=== PATIENT | male | born 1955 | race Caucasian/White ===

== ENCOUNTER 2018-03-28 06:29 | Day surgery (SDC) | payer MEDICARE, OTHER ==
[2018-03-20 11:41] VITALS: BMI 37.7
[~2018-03-28 06:29] MED LIST: LACTATED RINGERS 1,000 ML IV SCH; LIDOCAINE 1% 20 ML VIAL (10MG/ML) FOR IV START INTRADERMA PRN; SODIUM CHLORIDE 0.9% 1,000 ML IV SCH
[2018-03-28 07:42] LABS: Glucose,Whole Blood 136 mg/dL (75-99)
[2018-03-28 07:44] VITALS: TEMP 97.8
[2018-03-28] MEDS ORDERED: PROPOFOL 10 MG/ML 20 ML VIAL IV ONE (08:00)
[2018-03-28 08:24] LABS: Calcium 9.5 mg/dL (8.4-10.2); Potassium 5.1 mmol/L (3.5-5.1)
[2018-03-28 09:00] VITALS: RESP 16
[2018-03-28 09:28] VITALS: PULSE 62
[2018-03-28 10:21] VITALS: BP 145/79
--- NOTE | 2018-03-29 09:11 | PCN ---
PROCEDURE NOTE DATE OF SERVICE: 03/28/2018. PROCEDURE: Electrical cardioversion. INDICATIONS: Persistent atrial fibrillation, unresponsive to pharmacological efforts. PROCEDURE NOTE: Under the influence of ultra short-acting intravenous anesthetic agent with the attendance of the anesthesiologist, an initial shock of 200 joules was given to the chest wall with anterior and posterior patches. Patient did not convert to sinus rhythm. An additional shock of 250 joules was given and this was also unsuccessful and patient remained in atrial fibrillation with controlled rate. He was hemodynamically stable and neurologically intact. This was an unsuccessful cardioversion. Results were discussed with the patient and his sister. I expect he will be discharged later on today and we will pursue rate control and anticoagulation. The same medical regimen will be continued. MMODL / IJN: [id number] /
== END 2018-03-28 10:02 ==
LOC: CATHCVL 06:29
PROVIDERS: ATTEND Internal Medicine Interventional Cardiology
DX: I48.1 Persistent atrial fibrillation (principal); Z79.01 Long term (current) use of anticoagulants; I25.10 Atherosclerotic heart disease of native coronary artery without angina pectoris; I10 Essential (primary) hypertension; Z87.891 Personal history of nicotine dependence; E78.00 Pure hypercholesterolemia, unspecified; G47.33 Obstructive sleep apnea (adult) (pediatric); E78.5 Hyperlipidemia, unspecified; E13.51 Other specified diabetes mellitus with diabetic peripheral angiopathy without gangrene; Z79.84 Long term (current) use of oral hypoglycemic drugs; Z82.49 Family history of ischemic heart disease and other diseases of the circulatory system; Z79.82 Long term (current) use of aspirin; Z79.899 Other long term (current) drug therapy; Z88.8 Allergy status to other drugs, medicaments and biological substances
CPT/HCPCS: 92960; 80048; J2704

== ENCOUNTER → 2018-06-01 | Day surgery (SDC) | payer MEDICARE, OTHER ==
[2018-05-28 12:13] VITALS: BMI 37.3
[~2018-06-01] MED LIST changes: -LIDOCAINE 1% 20 ML VIAL (10MG/ML) FOR IV START INTRADERMA PRN; +LIDOCAINE 1% INJ 10MG/ML (20 ML MDV) ONE; +PROPOFOL 10 MG/ML 20 ML VIAL IV ONE; +fentaNYL (PF) 50 MCG/ML 2 ML AMP ONE
[2018-06-01 06:24] LABS: Glucose,Whole Blood 128 mg/dL (75-99)
[2018-06-01 06:54] LABS: Calcium 9.7 mg/dL (8.4-10.2); Potassium 5.6 mmol/L (3.5-5.1)
[2018-06-01 07:51] VITALS: RESP 18
--- NOTE | 2018-06-01 08:09 | CE ---
CARDIAC ELECTROPHYSIOLOGY REPORT DATE OF SERVICE: 06/01/2018 PROCEDURE: Electrical cardioversion. INDICATION: Persistent atrial fibrillation. CLINICAL INFORMATION: This is a 63-year-old gentleman with CAD, hypertension, type 2 diabetes, hyperlipidemia, who has developed atrial fibrillation which has been persistent. I performed cardioversion sometime in March of this year which was unsuccessful. I brought him back today on amiodarone to see if it will improve the chance of conversion. Risks, benefits, options and rationale were explained. PROCEDURE NOTE: Under the influence of ultra short-acting intravenous anesthetic agent with the attendance of the anesthesiologist, two shocks were delivered at 250 joules in a synchronized fashion with the anterior and posterior patches. Patient remained in atrial fib and did not convert to sinus rhythm. This was unsuccessful procedure. He remained hemodynamically stable and neurologically intact. Results were discussed with the patient and family. We will pursue rate control and anticoagulation for this patient and consider Tikosyn or pulmonary vein isolation for which he has been reluctant in the past. MMODL / IJN: [id number] /
[2018-06-01 11:37] VITALS: BP 124/66; PULSE 60
== END ==
LOC: CATHCVL 05:39
PROVIDERS: ATTEND Internal Medicine Interventional Cardiology
DX: I48.1 Persistent atrial fibrillation (principal); Z79.01 Long term (current) use of anticoagulants; I10 Essential (primary) hypertension; E78.00 Pure hypercholesterolemia, unspecified; G47.33 Obstructive sleep apnea (adult) (pediatric); I25.10 Atherosclerotic heart disease of native coronary artery without angina pectoris; Z87.891 Personal history of nicotine dependence; E78.5 Hyperlipidemia, unspecified; E13.51 Other specified diabetes mellitus with diabetic peripheral angiopathy without gangrene; Z82.49 Family history of ischemic heart disease and other diseases of the circulatory system; Z79.84 Long term (current) use of oral hypoglycemic drugs; Z79.899 Other long term (current) drug therapy; Z88.8 Allergy status to other drugs, medicaments and biological substances
CPT/HCPCS: 92960; 80048; J2001; J3010; J2704

== ENCOUNTER 2019-11-27 04:00 | Emergency (ER) | payer MEDICARE, OTHER ==
[2019-11-27] MEDS ORDERED: SODIUM CHLORIDE 0.9% 500 ML 500 ML IV STA (04:21)
[2019-11-27] MEDS ORDERED: diphenhydrAMINE 50 MG/ML 1 ML VIAL IVP STA (04:21)
[2019-11-27 04:53] LABS: Basophils # (A) 0.1 k/uL (0-0.2); Basophils % (A) 2 %; Eosinophils # (A) 0.3 k/uL (0-0.7); Eosinophils % (A) 4 %; HCT 45.2 % (39.0-53.0); HGB 15.1 gm/dL (13.0-17.5); Lymphocytes # (A) 1.2 k/uL (1.0-4.8); Lymphocytes % (A) 17 %; MCH 33.1 pg (25.0-35.0); MCHC 33.5 g/dL (31.0-37.0); MCV 98.8 fL (80.0-100.0); Mean Platelet Volume 8.1; Monocytes # (A) 0.4 k/uL (0-1.0); Monocytes % (A) 5 %; Neutrophils # (A) 5.3 k/uL (1.3-7.7); Neutrophils % (A) 72 %; Platelet Count 174 k/uL (150-450); RBC 4.58 m/uL (4.30-5.90); RDW 12.8 % (11.5-15.5); WBC 7.4 k/uL (3.8-10.6)
[2019-11-27 05:08] LABS: Albumin 4.1 g/dL (3.5-5.0); Total Bilirubin 0.9 mg/dL (0.2-1.3); Total Protein 7.6 g/dL (6.3-8.2)
[2019-11-27 05:10] LABS: Potassium 5.6 mmol/L (3.5-5.1)
--- NOTE | 2019-11-27 06:58 | ED ---
General Adult HPI - General Chief complaint: Allergic Reaction Stated complaint: Allergic Reaction Time Seen by Provider: 11/27/19 04:13 Source: patient, EMS Mode of arrival: EMS Limitations: no limitations - History of Present Illness Initial comments: This patient is 64-year-old man who presents because he feels he may be having ALLERGIC reaction to morphine. The patient states that he had been taking 30 mg of morphine every 12 hours for chronic back pain, and then he decided to wean himself off because it started to give him itching, and a feeling like his tongue was swelling. His last dose had been approximately 3 days ago, and then this morning he was starting to feel somewhat control symptoms so he did take one dose of 10 mg of morphine which did help with the withdrawal symptoms but he felt like his tongue may be swelling and he was itching. Patient denies dyspnea. No change in his voice. No difficulty swallowing. -: hour(s) Location: mouth Radiation: non-radiation Quality: other Consistency: constant Improves with: none Worsens with: none Associated Symptoms: denies other symptoms Treatments Prior to Arrival: none - Related Data Home Medications Medication Instructions Recorded Confirmed Apixaban [Eliquis] 5 mg PO BID 03/20/18 06/01/18 Cholecalciferol (Vitamin D3) 2,000 unit PO DAILY 03/20/18 06/01/18 [Vitamin D3] Cyanocobalamin (Vitamin B-12) 1,000 mcg PO DAILY 03/20/18 06/01/18 [Vitamin B-12] Cyclobenzaprine [Flexeril] 10 mg PO HS PRN 03/20/18 06/01/18 Glimepiride [Amaryl] 1 mg PO AC-BRKFST 03/20/18 06/01/18 HYDROcodone/APAP 10-325MG [[place] 1 tab PO Q6HR PRN 03/20/18 06/01/18 10-325] Isosorbide Mononitrate ER [Imdur] 30 mg PO DAILY 03/20/18 06/01/18 Krill Oil 1,000 mg PO DAILY 03/20/18 05/28/18 Nitroglycerin Sl Tabs [Nitrostat] 0.4 mg SUBLINGUAL Q5M PRN 03/20/18 06/01/18 Rosuvastatin [Crestor] 10 mg PO HS 03/20/18 06/01/18 amLODIPine [Norvasc] 5 mg PO DAILY 03/20/18 06/01/18 metFORMIN HCL [Glucophage] 500 mg PO HS 03/20/18 06/01/18 Amiodarone [Cordarone] 200 mg PO BID 05/15/18 06/01/18 Metoprolol Tartrate [Lopressor] 50 mg PO TID 05/28/18 06/01/18 Previous Rx's Medication Instructions Recorded LORazepam [Ativan] 0.5 mg PO TID 3 Days #9 tab 11/27/19 cloNIDine HCL [Catapres] 0.2 mg PO TID #15 tablet 11/27/19 Allergies Allergy/AdvReac Type Severity Reaction Status Date / Time morphine Allergy Swelling Verified 11/27/19 04:11 Review of Systems ROS Statement: Those systems with pertinent positive or pertinent negative responses have been documented in the HPI. ROS Other: All systems not noted in ROS Statement are negative. Constitutional: Denies: fever, chills, weakness ENT: Reports: as per HPI, other (Tongue) Respiratory: Denies: cough, dyspnea, wheezes, stridor Cardiovascular: Denies: chest pain, palpitations Gastrointestinal: Denies: abdominal pain, nausea, vomiting, diarrhea Skin: Reports: pruritus Past Medical History Past Medical History: Atrial Fibrillation, Chest Pain / Angina, Diabetes Mellitus, Hyperlipidemia, Hypertension, Musculoskeletal Disorder, Osteoarthritis (OA) Additional Past Medical History / Comment(s): BACK PAIN R/T OLD INJURY. EDEMA FEET/ANKLES. History of Any Multi-Drug Resistant Organisms: None Reported Past Surgical History: Back Surgery, Heart Catheterization, Heart Catheterization With Stent, Orthopedic Surgery Additional Past Surgical History / Comment(s): R Knee scope; Colonoscopy; Deviated Septum Repair. BACK SURG.X2 PTCA W/ STENTS X2. CARDIOVERSION 03/28/18. Past Anesthesia/Blood Transfusion Reactions: No Reported Reaction Date of Last Stent Placement:: 1997 Past Psychological History: No Psychological Hx Reported Smoking Status: Former smoker Past Alcohol Use History: None Reported Past Drug Use History: None Reported - Past Family History Mother Family Medical History: No Reported History General Exam Limitations: no limitations General appearance: alert, in no apparent distress Head exam: Present: atraumatic, normocephalic Eye exam: Present: normal appearance. Absent: scleral icterus, conjunctival injection ENT exam: Present: normal oropharynx, mucous membranes dry, other (There is no angioedema) Neck exam: Present: normal inspection, full ROM Respiratory exam: Present: normal lung sounds bilaterally. Absent: respiratory distress, wheezes, rales, rhonchi, stridor Cardiovascular Exam: Present: regular rate, normal rhythm, normal heart sounds. Absent: systolic murmur, diastolic murmur, rubs, gallop GI/Abdominal exam: Present: soft. Absent: tenderness, guarding, rebound Neurological exam: Present: alert Skin exam: Present: warm, dry, intact, normal color. Absent: rash Course Vital Signs 11/27/19 11/27/19 11/27/19 04:06 05:04 07:12 Temperature 97 F L 96.9 F L Pulse Rate 95 112 H 87 Respiratory 18 19 18 Rate Blood Pressure 131/100 146/75 119/87 O2 Sat by Pulse 99 97 98 Oximetry EKG Findings - EKG Comments: EKG Findings:: The underlying rhythm is atrial flutter with verbal conduction, the rate is 98 bpm. - EKG Results: EKG: interpreted by ERMD, normal axis, normal QRS - Blocks, Ubly, Hypertrophy, ST Abn: Repolarization changes or abnormalities: nonspecific abnormality, ST segment, and/or T wave Medical Decision Making - Medical Decision Making Patient is observed in the emergency department to ensure that there is no development of angioedema. He is stable throughout his course here. He did request medication to see if we could blunt the withdrawal symptoms, and will attempts clonidine and Ativan for a few days and have the patient follow up to ensure that these are relieving his symptoms. Discussed return parameters. - Lab Data Result diagrams: 11/27/19 04:40 11/27/19 04:40 Lab Results 11/27/19 11/27/19 Range/Units 04:40 04:40 WBC 7.4 (3.8-10.6) k/uL RBC 4.58 (4.30-5.90) m/uL Hgb 15.1 (13.0-17.5) gm/dL Hct 45.2 (39.0-53.0) % MCV 98.8 (80.0-100.0) fL MCH 33.1 (25.0-35.0) pg MCHC 33.5 (31.0-37.0) g/dL RDW 12.8 (11.5-15.5) % Plt Count 174 (150-450) k/uL Neutrophils % 72 % Lymphocytes % 17 % Monocytes % 5 % Eosinophils % 4 % Basophils % 2 % Neutrophils # 5.3 (1.3-7.7) k/uL Lymphocytes # 1.2 (1.0-4.8) k/uL Monocytes # 0.4 (0-1.0) k/uL Eosinophils # 0.3 (0-0.7) k/uL Basophils # 0.1 (0-0.2) k/uL Sodium 138 (137-145) mmol/L Potassium 5.6 H (3.5-5.1) mmol/L Chloride 109 H (98-107) mmol/L Carbon Dioxide 19 L (22-30) mmol/L Anion Gap 10 mmol/L BUN 17 (9-20) mg/dL Creatinine 1.15 (0.66-1.25) mg/dL Est GFR (CKD-EPI)AfAm 78 (>60 ml/min/1.73 sqM) Est GFR (CKD-EPI)NonAf 67 (>60 ml/min/1.73 sqM) Glucose 217 H (74-99) mg/dL Calcium 9.0 (8.4-10.2) mg/dL Total Bilirubin 0.9 (0.2-1.3) mg/dL AST 38 (17-59) U/L ALT 20 (4-49) U/L Alkaline Phosphatase 109 (38-126) U/L Total Protein 7.6 (6.3-8.2) g/dL Albumin 4.1 (3.5-5.0) g/dL Disposition Clinical Impression: Allergic reaction Disposition: HOME SELF-CARE Condition: Good Instructions (If sedation given, give patient instructions): Allergies (ED) Prescriptions: LORazepam [Ativan] 0.5 mg PO TID 3 Days #9 tab cloNIDine HCL [Catapres] 0.2 mg PO TID #15 tablet Is patient prescribed a controlled substance at d/c from ED?: No Referrals: Marco Haque MD [Primary Care Provider] - 1-2 days
[2019-11-27 07:14] VITALS: BP 119/87; PULSE 87; RESP 18; TEMP 96.9
== END 2019-11-27 07:12 | disposition home or self-care (01) ==
LOC: EC 04:00
DX: T40.2X5A Adverse effect of other opioids, initial encounter (principal); I48.91 Unspecified atrial fibrillation; I10 Essential (primary) hypertension; E11.9 Type 2 diabetes mellitus without complications; E78.5 Hyperlipidemia, unspecified; Z79.01 Long term (current) use of anticoagulants; Z79.84 Long term (current) use of oral hypoglycemic drugs; Z79.899 Other long term (current) drug therapy; Z88.5 Allergy status to narcotic agent; Z87.891 Personal history of nicotine dependence; Z95.5 Presence of coronary angioplasty implant and graft
CPT/HCPCS: 36415; 80053; 85025; 93005; 96360; 96361; 99284

== ENCOUNTER 2019-12-13 09:37 | Observation (INO) | payer MEDICARE, OTHER ==
--- NOTE | 2019-12-13 10:01 | ED ---
General Adult HPI - General Chief complaint: Arrhythmia/Palpitations Stated complaint: AFib, SOB Time Seen by Provider: 12/13/19 09:47 Source: patient, RN notes reviewed Mode of arrival: ambulatory Limitations: no limitations - History of Present Illness Initial comments: Patient is a pleasant [age]-year-old male presenting to the emergency Department with complaints of his A. fib acting up. Patient states he has been having some chest discomfort over the past few weeks. Patient last had some yesterday afternoon described as pressure here patient gets associated dyspnea and nausea and diaphoresis. Patient does not generally feel palpitations. Patient states symptoms are mild at this point and only mild dyspnea. No leg pain or leg swelling. Patient does have known history of atrial fibrillation and is on anticoagulation for this. - Related Data Home Medications Medication Instructions Recorded Confirmed Apixaban [Eliquis] 5 mg PO BID 03/20/18 06/01/18 Cholecalciferol (Vitamin D3) 2,000 unit PO DAILY 03/20/18 06/01/18 [Vitamin D3] Cyanocobalamin (Vitamin B-12) 1,000 mcg PO DAILY 03/20/18 06/01/18 [Vitamin B-12] Cyclobenzaprine [Flexeril] 10 mg PO HS PRN 03/20/18 06/01/18 Glimepiride [Amaryl] 1 mg PO AC-BRKFST 03/20/18 06/01/18 HYDROcodone/APAP 10-325MG [[place] 1 tab PO Q6HR PRN 03/20/18 06/01/18 10-325] Isosorbide Mononitrate ER [Imdur] 30 mg PO DAILY 03/20/18 06/01/18 Krill Oil 1,000 mg PO DAILY 03/20/18 05/28/18 Nitroglycerin Sl Tabs [Nitrostat] 0.4 mg SUBLINGUAL Q5M PRN 03/20/18 06/01/18 Rosuvastatin [Crestor] 10 mg PO HS 03/20/18 06/01/18 amLODIPine [Norvasc] 5 mg PO DAILY 03/20/18 06/01/18 metFORMIN HCL [Glucophage] 500 mg PO HS 03/20/18 06/01/18 Amiodarone [Cordarone] 200 mg PO BID 05/15/18 06/01/18 Metoprolol Tartrate [Lopressor] 50 mg PO TID 05/28/18 06/01/18 Previous Rx's Medication Instructions Recorded LORazepam [Ativan] 0.5 mg PO TID 3 Days #9 tab 11/27/19 cloNIDine HCL [Catapres] 0.2 mg PO TID #15 tablet 11/27/19 Allergies Allergy/AdvReac Type Severity Reaction Status Date / Time morphine Allergy Swelling Verified 12/13/19 09:42 Review of Systems ROS Statement: Those systems with pertinent positive or pertinent negative responses have been documented in the HPI. ROS Other: All systems not noted in ROS Statement are negative. Constitutional: Denies: fever Eyes: Denies: eye pain ENT: Denies: ear pain Respiratory: Reports: dyspnea Cardiovascular: Reports: chest pain Endocrine: Reports: fatigue Gastrointestinal: Reports: nausea. Denies: abdominal pain Genitourinary: Denies: dysuria Musculoskeletal: Denies: back pain Skin: Denies: rash Neurological: Denies: weakness Past Medical History Past Medical History: Atrial Fibrillation, Chest Pain / Angina, Diabetes Natalia litus, Hyperlipidemia, Hypertension, Musculoskeletal Disorder, Osteoarthritis (OA) Additional Past Medical History / Comment(s): BACK PAIN R/T OLD INJURY. EDEMA FEET/ANKLES. History of Any Multi-Drug Resistant Organisms: None Reported Past Surgical History: Back Surgery, Heart Catheterization, Heart Catheterization With Stent, Orthopedic Surgery Additional Past Surgical History / Comment(s): R Knee scope; Colonoscopy; Deviated Septum Repair. BACK SURG.X2 PTCA W/ STENTS X2. CARDIOVERSION 03/28/18. Past Anesthesia/Blood Transfusion Reactions: No Reported Reaction Date of Last Stent Placement:: 1997 Past Psychological History: No Psychological Hx Reported Smoking Status: Former smoker Past Alcohol Use History: None Reported Past Drug Use History: None Reported - Past Family History Mother Family Medical History: No Reported History General Exam Limitations: no limitations General appearance: alert, in no apparent distress Head exam: Present: normocephalic Eye exam: Present: normal appearance, PERRL ENT exam: Present: normal oropharynx Neck exam: Present: normal inspection Respiratory exam: Present: normal lung sounds bilaterally Cardiovascular Exam: Present: tachycardia, irregular rhythm GI/Abdominal exam: Present: soft. Absent: tenderness Extremities exam: Present: normal inspection. Absent: pedal edema, calf tenderness Neurological exam: Present: alert Psychiatric exam: Present: normal affect, normal mood Skin exam: Present: normal color Course Vital Signs 12/13/19 12/13/19 09:42 10:03 Temperature 97.5 F L Pulse Rate 102 H 118 H Pulse Rate [ 115 H Bilateral] Respiratory 18 20 Rate Blood Pressure 107/78 125/78 O2 Sat by Pulse 99 99 Oximetry EKG Findings - EKG Comments: EKG Findings:: A. fib with RVR, rate 1:15. QRS 100. QT 302. QTC or 17. Normal axis. Normal QRS. Nonspecific T waves. Medical Decision Making - Medical Decision Making Patient reevaluated and updated. Patient is currently on anticoagulation. Case discussed in detail with Dr. Cabrera, covering for Dr. Haque, who will admit. He did see patient in the emergency department. - Lab Data Result diagrams: 12/13/19 10:00 12/13/19 10:00 Lab Results 12/13/19 12/13/19 12/13/19 Range/Units 10:00 10:00 10:00 WBC 8.6 (3.8-10.6) k/uL RBC 4.90 (4.30-5.90) m/uL Hgb 16.0 (13.0-17.5) gm/dL Hct 47.9 (39.0-53.0) % MCV 97.7 (80.0-100.0) fL MCH 32.6 (25.0-35.0) pg MCHC 33.3 (31.0-37.0) g/dL RDW 12.5 (11.5-15.5) % Plt Count 193 (150-450) k/uL Neutrophils % 73 % Lymphocytes % 18 % Monocytes % 4 % Eosinophils % 3 % Basophils % 1 % Neutrophils # 6.3 (1.3-7.7) k/uL Lymphocytes # 1.6 (1.0-4.8) k/uL Monocytes # 0.4 (0-1.0) k/uL Eosinophils # 0.2 (0-0.7) k/uL Basophils # 0.1 (0-0.2) k/uL PT 10.6 (9.0-12.0) sec INR 1.0 (<1.2) APTT 23.9 (22.0-30.0) sec Sodium 141 (137-145) mmol/L Potassium 5.4 H (3.5-5.1) mmol/L Chloride 108 H (98-107) mmol/L Carbon Dioxide 20 L (22-30) mmol/L Anion Gap 13 mmol/L BUN 16 (9-20) mg/dL Creatinine 1.27 H (0.66-1.25) mg/dL Est GFR (CKD-EPI)AfAm 69 (>60 ml/min/1.73 sqM) Est GFR (CKD-EPI)NonAf 59 (>60 ml/min/1.73 sqM) Glucose 185 H (74-99) mg/dL Calcium 9.8 (8.4-10.2) mg/dL Magnesium 1.8 (1.6-2.3) mg/dL Total Bilirubin 1.0 (0.2-1.3) mg/dL AST 23 (17-59) U/L ALT 18 (4-49) U/L Alkaline Phosphatase 97 (38-126) U/L Troponin I (0.000-0.034) ng/mL NT-Pro-B Natriuret Pep pg/mL Total Protein 8.1 (6.3-8.2) g/dL Albumin 4.4 (3.5-5.0) g/dL TSH 1.200 (0.465-4.680) mIU/L 12/13/19 12/13/19 Range/Units 10:00 10:00 WBC (3.8-10.6) k/uL RBC (4.30-5.90) m/uL Hgb (13.0-17.5) gm/dL Hct (39.0-53.0) % MCV (80.0-100.0) fL MCH (25.0-35.0) pg MCHC (31.0-37.0) g/dL RDW (11.5-15.5) % Plt Count (150-450) k/uL Neutrophils % % Lymphocytes % % Monocytes % % Eosinophils % % Basophils % % Neutrophils # (1.3-7.7) k/uL Lymphocytes # (1.0-4.8) k/uL Monocytes # (0-1.0) k/uL Eosinophils # (0-0.7) k/uL Basophils # (0-0.2) k/uL PT (9.0-12.0) sec INR (<1.2) APTT (22.0-30.0) sec Sodium (137-145) mmol/L Potassium (3.5-5.1) mmol/L Chloride (98-107) mmol/L Carbon Dioxide (22-30) mmol/L Anion Gap mmol/L BUN (9-20) mg/dL Creatinine (0.66-1.25) mg/dL Est GFR (CKD-EPI)AfAm (>60 ml/min/1.73 sqM) Est GFR (CKD-EPI)NonAf (>60 ml/min/1.73 sqM) Glucose (74-99) mg/dL Calcium (8.4-10.2) mg/dL Magnesium (1.6-2.3) mg/dL Total Bilirubin (0.2-1.3) mg/dL AST (17-59) U/L ALT (4-49) U/L Alkaline Phosphatase (38-126) U/L Troponin I <0.012 (0.000-0.034) ng/mL NT-Pro-B Natriuret Pep 2650 pg/mL Total Protein (6.3-8.2) g/dL Albumin (3.5-5.0) g/dL TSH (0.465-4.680) mIU/L - Radiology Data Radiology results: image reviewed (Chest x-ray shows no acute process) Critical Care Time Critical Care Time: Yes Total Critical Care Time: 31 Disposition Clinical Impression: Atrial fibrillation with RVR, Chest pain Disposition: ADMITTED IP TO THIS HOSP Is patient prescribed a controlled substance at d/c from ED?: No Referrals: Marco Haque MD [Primary Care Provider] - 1-2 days Decision Time: 11:08
[2019-12-13 10:10] LABS: Basophils # (A) 0.1 k/uL (0-0.2); Basophils % (A) 1 %; Eosinophils # (A) 0.2 k/uL (0-0.7); Eosinophils % (A) 3 %; HCT 47.9 % (39.0-53.0); Lymphocytes # (A) 1.6 k/uL (1.0-4.8); Lymphocytes % (A) 18 %; MCH 32.6 pg (25.0-35.0); MCHC 33.3 g/dL (31.0-37.0); MCV 97.7 fL (80.0-100.0); Mean Platelet Volume 7.8; Monocytes # (A) 0.4 k/uL (0-1.0); Monocytes % (A) 4 %; Neutrophils # (A) 6.3 k/uL (1.3-7.7); Neutrophils % (A) 73 %; Platelet Count 193 k/uL (150-450); RDW 12.5 % (11.5-15.5); WBC 8.6 k/uL (3.8-10.6)
[2019-12-13 10:16] LABS: Partial Thromboplastin Time 23.9 sec (22.0-30.0); Prothrombin Time 10.6 sec (9.0-12.0)
--- NOTE | 2019-12-13 10:17 | XR ---
EXAMINATION TYPE: XR chest 2V DATE OF EXAM: 12/13/2019 COMPARISON: 01/31/2012 INDICATION: Dysrhythmia TECHNIQUE: Frontal and lateral views of the chest are obtained. FINDINGS: The heart size is normal. The pulmonary vasculature is normal. The lungs are clear. IMPRESSION: 1. No acute pulmonary process.
[2019-12-13] MEDS: DILTIAZEM 125 MG in SODIUM CHLORIDE 0.9% 100 ML IV SCH (10:19)
[2019-12-13 10:20] LABS: Albumin 4.4 g/dL (3.5-5.0); Calcium 9.8 mg/dL (8.4-10.2); Magnesium 1.8 mg/dL (1.6-2.3); Potassium 5.4 mmol/L (3.5-5.1); Total Protein 8.1 g/dL (6.3-8.2)
[2019-12-13] MEDS ORDERED: NITROGLYCERIN SL TABS 0.4 MG TAB SUBLINGUAL PRN ×2 (11:09→12:14)
[2019-12-13] MEDS ORDERED: ASPIRIN 81 MG PO STA (11:09)
[2019-12-13] MEDS: NITROGLYCERIN OINT 1 INCH/GM PACKET TOPICAL SCH ×3 (12:01→23:58)
[2019-12-13] MEDS ORDERED: CYCLOBENZAPRINE 10 MG TAB PO PRN (12:14)
--- NOTE | 2019-12-13 12:38 | P.HPIM ---
History of Present Illness H&P Date: 12/13/19 Chief Complaint: Palpitations This is a 64-year-old male patient of Dr. Marco Haque and Dr. FELI Michael with past medical history of chronic atrial fibrillation on eliquis with cardioversion in 2017, coronary artery disease status post PTCA with stents, diabetes mellitus type 2, hypertension, hyperlipidemia, generalized osteoarthritis, chronic back pain from a work injury in 1999. Patient also follows with a pain management physician in [place]. He states that he was switched from [place] to morphine in June and at the end of September developed hives and rash from the morphine which was discontinued. He states he has had troubles since that time. He complains of chills runny nose which is resolved, nausea without vomiting. The umbilical abdominal pain. Patient states that his atrial fibrillation has been bothering him. He has shortness of breath with minimal activity which became severe last evening, lightheadedness. He denies any syncopal episode. He does relate these not been sleeping. He denies having any diarrhea, no blood or tarry stools. Patient came into [facility] emergency center for evaluation. EKG was atrial fibrillation with heart rate of 115 with T-wave inversions. Patient was afebrile, blood pressure 107/78, pulse ox 99% on room air. CBC was unremarkable. Potassium 5.4, chloride 108, CO2 20, BUN 16 creatinine 1.27, blood sugar 185. Liver function tests within normal limits. Troponin negative. ProBNP 2650. TSH 1.2. Chest x-ray showed no acute pulmonary process. Abdominal ultrasound ordered, cardiology consult. Patient was started on current in the emergency center. We will resume his home medications. Review of Systems Constitutional: Reports fatigue, Reports weakness, Denies chills, Denies fever Eyes: denies blurred vision, denies pain Ears, nose, mouth and throat: Denies dental pain, Denies dysphagia, Denies nasal congestion, Denies nasal discharge, Denies vertigo Cardiovascular: Reports dyspnea on exertion, Reports irregular heart beat, Reports lightheadedness, Reports palpitations, Reports shortness of breath, Denies chest pain, Denies edema, Denies leg edema, Denies syncope Respiratory: Denies cough, Denies cough with sputum, Denies dyspnea, Denies excessive sputum, Denies hemoptysis, Denies home oxygen, Denies respiratory infections, Denies wheezing Gastrointestinal: Reports abdominal pain, Reports nausea, Denies diarrhea, Denies vomiting Genitourinary: Denies dysuria, Denies urinary frequency, Denies urinary retention Musculoskeletal: Denies frequent falls, Denies gait dysfunction, Denies muscle weakness, Denies myalgias Integumentary: Denies pruritus, Denies rash, Denies wounds Neurological: Denies change in mentation, Denies change in speech, Denies numbness, Denies weakness Psychiatric: Denies anxiety, Denies depression Endocrine: Denies fatigue, Denies weight change Past Medical History Past Medical History: Atrial Fibrillation, Chest Pain / Angina, Diabetes Mellitus, Hyperlipidemia, Hypertension, Musculoskeletal Disorder, Osteoarthritis (OA) Additional Past Medical History / Comment(s): BACK PAIN R/T OLD INJURY. EDEMA FEET/ANKLES. History of Any Multi-Drug Resistant Organisms: None Reported Past Surgical History: Back Surgery, Heart Catheterization, Heart Catheterization With Stent, Orthopedic Surgery Additional Past Surgical History / Comment(s): R Knee scope; Colonoscopy; Deviated Septum Repair. BACK SURG.X2 PTCA W/ STENTS X2. CARDIOVERSION 03/28/18. Past Anesthesia/Blood Transfusion Reactions: No Reported Reaction Date of Last Stent Placement:: 1997 Past Psychological History: No Psychological Hx Reported Smoking Status: Former smoker Past Alcohol Use History: None Reported Additional Past Alcohol Use History / Comment(s): Patient was a smoker one pack per day for 30 years and quit 30 years ago. He denies any marijuana, street drug or alcohol use. Patient lives alone. Past Drug Use History: None Reported - Past Family History Mother Family Medical History: No Reported History Additional Family Medical History / Comment(s): Mother in her 80s from coronary artery disease. Father Additional Family Medical History / Comment(s): Father from coronary artery disease. Sister(s) Additional Family Medical History / Comment(s): Patient has 3 sisters one past from CVA. One has coronary artery disease with stent in 1 has no major medical problems. Patient is not having any children. Patient does not have any brothers. Medications and Allergies Home Medications Medication Instructions Recorded Confirmed Type Apixaban [Eliquis] 5 mg PO BID 03/20/18 12/13/19 History Cholecalciferol (Vitamin D3) 2,000 unit PO DAILY 03/20/18 12/13/19 History [Vitamin D3] Cyanocobalamin (Vitamin B-12) 1,000 mcg PO DAILY 03/20/18 12/13/19 History [Vitamin B-12] Cyclobenzaprine [Flexeril] 20 mg PO HS PRN 03/20/18 12/13/19 History Glimepiride [Amaryl] 1 mg PO AC-BRKFST 03/20/18 12/13/19 History Isosorbide Mononitrate ER [Imdur] 30 mg PO DAILY 03/20/18 12/13/19 History Krill Oil 1,500 mg PO DAILY 03/20/18 12/13/19 History Nitroglycerin Sl Tabs [Nitrostat] 0.4 mg SUBLINGUAL Q5M PRN 03/20/18 12/13/19 History amLODIPine [Norvasc] 5 mg PO DAILY 03/20/18 12/13/19 History metFORMIN HCL [Glucophage] 500 mg PO DAILY 03/20/18 12/13/19 History Metoprolol Tartrate [Lopressor] 50 mg PO TID 05/28/18 12/13/19 History Allopurinol [Zyloprim] 100 mg PO DAILY 12/13/19 12/13/19 History Pravastatin Sodium [Pravachol] 40 mg PO HS 12/13/19 12/13/19 History Allergies Allergy/AdvReac Type Severity Reaction Status Date / Time morphine Allergy Swelling Verified 12/13/19 09:42 Physical Exam Vitals: Vital Signs Temp Pulse Pulse Resp BP Pulse Ox 12/13/19 10:03 118 H 115 H 20 125/78 99 12/13/19 09:42 97.5 F L 102 H 18 107/78 99 Intake and Output 12/12/19 12/13/19 12/13/19 22:59 06:59 14:59 Other: Weight 128.367 kg Gen: This is a 64-year-old male. Patient is resting in the ER stretcher appears to be comfortable and in no acute distress. HEENT: Head is atraumatic, normocephalic. Pupils equal, round. Sclerae is anicteric. NECK: Supple. No JVD. No lymphadenopathy. No thyromegaly. LUNGS: Clear to auscultation. No wheezes or rhonchi. No intercostal retractions. HEART: Irregularly irregular rate and rhythm. No murmur. ABDOMEN: Soft. Bowel sounds are present. No masses. No tenderness. Pain at periumbilical area EXTREMITIES: No pedal edema. No calf tenderness. NEUROLOGICAL: Patient is awake, alert and oriented x3. Cranial nerves 2 through 12 are grossly intact. Results CBC & Chem 7: 12/13/19 10:00 12/13/19 10:00 Labs: Abnormal Lab Results - Last 24 Hours (Table) 12/13/19 Range/Units 10:00 Potassium 5.4 H (3.5-5.1) mmol/L Chloride 108 H (98-107) mmol/L Carbon Dioxide 20 L (22-30) mmol/L Creatinine 1.27 H (0.66-1.25) mg/dL Glucose 185 H (74-99) mg/dL Thrombosis Risk Factor Assmnt - DVT/VTE Prophylaxis DVT/VTE Prophylaxis: Pharmacologic Prophylaxis ordered Assessment and Plan Plan: 1. A. fib with RVR, chronic atrial fibrillation. Patient resumed on eliquis. Patient started on Cardizem drip at 5 mg in the ER. Resume Lopressor 50 mg 3 times daily. 2. Coronary artery disease with previous stents. Continue pravastatin, Lopressor, Imdur 30 mg daily. 3. Diabetes mellitus type 2. Continue metformin 500 mg daily, glimepiride 1 mg with breakfast, insulin scale before meals and at bedtime. 4. Hypertension. Continue amlodipine 5 mg daily, Lopressor. 5. Hyperlipidemia. Pravastatin. 6. Chronic back pain. Continue Flexeril 20 mg at bedtime as needed. 7. Chronic kidney disease stage III. 8. DVT prophylaxis. Eliquis. 9. GI prophylaxis. Pepcid. Patient will be admitted to the hospital for a minimum of 2 night stay. Discharge plan: home Impression and plan of care have been directed as dictated by the signing physician. Deysi Padgett nurse practitioner acting as scribe for signing physician.
--- NOTE | 2019-12-13 14:34 | US ---
EXAMINATION TYPE: US abdomen complete DATE OF EXAM: 12/13/2019 COMPARISON: NONE CLINICAL HISTORY: periumbilical pain. EXAM MEASUREMENTS: Liver Length: 18.3 cm Gallbladder Wall: 0.3 cm CBD: 0.3 cm Spleen: 13.0 cm Right Kidney: 11.7 x 5.8 x 4.8 cm Left Kidney: 11.5 x 5.8 x 5.8 cm Patient of large body habitus with severe overlying bowel gas. Technically difficult very limited neeru dy. Pancreas: Obscured by bowel gas Liver: Increased attenuation, limited visualization, see above limitations Gallbladder: gallstones, limited visualization, see above limitations Evidence for sonographic Moreno's sign: no CBD: limited visualization, see above limitations Spleen: wnl Right Kidney: lobular contour Left Kidney: possible parapelvic cysts, lobular contour, cortical medullary differentiation maintain ed bilaterally Upper IVC: not well seen Abd Aorta: mostly obscured by bowel gas, portion visualized wnl There is no ascites. IMPRESSION: Suspect underlying hepatic steatosis, borderline hepatosplenomegaly, cholelithiasis. Limi hiram exam.
[2019-12-13] MEDS: APIXABAN 5 MG TAB PO SCH ×2 (14:43→21:31)
[2019-12-13] MEDS: ISOSORBIDE MONONITRATE ER 30 MG TAB.ER.24H PO SCH (14:44)
[2019-12-13] MEDS: metFORMIN 500 MG TAB PO SCH (14:45)
[2019-12-13] MEDS: METOPROLOL TARTRATE 50 MG TAB PO SCH ×2 (14:45→21:35)
[2019-12-13 16:46] LABS: Glucose,Whole Blood 89 mg/dL (75-99)
[2019-12-13] MEDS: INSULIN ASPART (NovoLOG) 100 UNIT/ML VIAL SQ SCH ×3 (16:46→21:31)
[2019-12-13 18:19] VITALS: RESP 18
[2019-12-13] MEDS ORDERED: PRAVASTATIN SODIUM 40 MG TAB PO SCH (21:00)
[2019-12-13 21:26] LABS: Glucose,Whole Blood 137 mg/dL (75-99)
[2019-12-14 04:33] LABS: Cholesterol 173 mg/dL (<200); HDL Cholesterol 33 mg/dL (40-60); LDL Cholesterol,Calculated 103 mg/dL (0-99); Triglycerides 184 mg/dL (<150)
[2019-12-14 06:34] LABS: Glucose,Whole Blood 162 mg/dL (75-99)
[2019-12-14] MEDS ORDERED: GLIMEPIRIDE 1 MG TAB PO SCH (07:30)
[2019-12-14] MEDS ORDERED: amLODIPine 5 MG TAB PO SCH (09:00)
[2019-12-14] MEDS ORDERED: ALLOPURINOL 100 MG TAB PO SCH (09:00)
[2019-12-14] MEDS ORDERED: ASPIRIN 325 MG TAB PO SCH (09:00)
[2019-12-14] MEDS ORDERED: FAMOTIDINE 20 MG TAB PO SCH (09:00)
[2019-12-14] MEDS: ISOSORBIDE MONONITRATE ER 30 MG TAB.ER.24H PO SCH (09:14)
[2019-12-14] MEDS: APIXABAN 5 MG TAB PO SCH (09:14)
[2019-12-14] MEDS: metFORMIN 500 MG TAB PO SCH (09:14)
[2019-12-14] MEDS: METOPROLOL TARTRATE 50 MG TAB PO SCH (09:14)
[2019-12-14] MEDS: INSULIN ASPART (NovoLOG) 100 UNIT/ML VIAL SQ SCH ×2 (09:15→14:06)
[2019-12-14] MEDS: NITROGLYCERIN OINT 1 INCH/GM PACKET TOPICAL SCH (09:15)
[2019-12-14] MEDS: DILTIAZEM 125 MG in SODIUM CHLORIDE 0.9% 100 ML IV SCH (09:16)
--- NOTE | 2019-12-14 09:52 | P.DS ---
Providers Date of admission: 12/13/19 11:09 Expected date of discharge: 12/14/19 Attending physician: Mark Calle Consults: 12/13/19 11:09 Consult Physician Urgent Consulting Provider: Nishi Michael Consult Reason/Comments: A. fib with RVR and chest pain Do you want consulting provider notified?: Yes Primary care physician: Marco Haque [facility] Course: This is a 64-year-old male patient of Dr. Marco Haque and Dr. FELI Michael with past medical history of chronic atrial fibrillation on eliquis with cardioversion in 2017, coronary artery disease status post PTCA with stents, diabetes mellitus type 2, hypertension, hyperlipidemia, generalized osteoarthritis, chronic back pain from a work injury in 1999. Patient also follows with a pain management physician in [place]. He states that he was switched from [place] to morphine in June and at the end of September developed hives and rash from the morphine which was discontinued. He states he has had troubles since that time. He complains of chills runny nose which is resolved, nausea without vomiting. The umbilical abdominal pain. Patient states that his atrial fibrillation has been bothering him. He has shortness of breath with minimal activity which became severe last evening, lightheadedness. He denies any syncopal episode. He does relate these not been sleeping. He denies having any diarrhea, no blood or tarry stools. Patient came into [facility] emergency center for evaluation. EKG was atrial fibrillation with heart rate of 115 with T-wave inversions. Patient was afebrile, blood pressure 107/78, pulse ox 99% on room air. CBC was unremarkable. Potassium 5.4, chloride 108, CO2 20, BUN 16 creatinine 1.27, blood sugar 185. Liver function tests within normal limits. Troponin negative. ProBNP 2650. TSH 1.2. Chest x-ray showed no acute pulmonary process. Abdominal ultrasound ordered, cardiology consult. Patient was started on current in the emergency center. We will resume his home medications. 12/14: Patient is seen today on the cardiac stepdown unit. Heart rate has been running 49-69, blood pressure 150/83, pulse ox 94% on room air. Patient has been cleared by cardiology and Lopressor changed to 75 mg 3 times daily. Patient denies having any chest pain. He states his abdominal pain has resolved. Ultrasound of the abdomen does show gallstones and patient will be referred to Dr. Do follow-up as an outpatient. Patient will be discharged home today in stable condition. Discharge diagnoses: 1. A. fib with RVR, chronic atrial fibrillation. 2. Coronary artery disease with previous stents. 3. Diabetes mellitus type 2. 4. Hypertension. 5. Hyperlipidemia. 6. Chronic back pain. 7. Chronic kidney disease stage III. 8. Abdominal pain most likely secondary to gallbladder stones. Discharge plan: home Impression and plan of care have been directed as dictated by the signing physician. Deysi Padgett nurse practitioner acting as scribe for signing physician. Patient Condition at Discharge: Good Plan - Discharge Summary Discharge Rx Participant: Yes New Discharge Prescriptions: New Metoprolol Tartrate [Lopressor] 75 mg PO TID #135 tab Continue metFORMIN HCL [Glucophage] 500 mg PO DAILY Nitroglycerin Sl Tabs [Nitrostat] 0.4 mg SUBLINGUAL Q5M PRN PRN Reason: Chest Pain Glimepiride [Amaryl] 1 mg PO AC-BRKFST Cyclobenzaprine [Flexeril] 20 mg PO HS PRN PRN Reason: Muscle Spasm amLODIPine [Norvasc] 5 mg PO DAILY Isosorbide Mononitrate ER [Imdur] 30 mg PO DAILY Apixaban [Eliquis] 5 mg PO BID Krill Oil 1,500 mg PO DAILY Cyanocobalamin (Vitamin B-12) [Vitamin B-12] 1,000 mcg PO DAILY Cholecalciferol (Vitamin D3) [Vitamin D3] 2,000 unit PO DAILY Allopurinol [Zyloprim] 100 mg PO DAILY Pravastatin Sodium [Pravachol] 40 mg PO HS Discontinued Metoprolol Tartrate [Lopressor] 50 mg PO TID Discharge Medication List Apixaban [Eliquis] 5 mg PO BID 03/20/18 [History] Cholecalciferol (Vitamin D3) [Vitamin D3] 2,000 unit PO DAILY 03/20/18 [History] Cyanocobalamin (Vitamin B-12) [Vitamin B-12] 1,000 mcg PO DAILY 03/20/18 [History] Cyclobenzaprine [Flexeril] 20 mg PO HS PRN 03/20/18 [History] Glimepiride [Amaryl] 1 mg PO AC-BRKFST 03/20/18 [History] Isosorbide Mononitrate ER [Imdur] 30 mg PO DAILY 03/20/18 [History] Krill Oil 1,500 mg PO DAILY 03/20/18 [History] Nitroglycerin Sl Tabs [Nitrostat] 0.4 mg SUBLINGUAL Q5M PRN 03/20/18 [History] amLODIPine [Norvasc] 5 mg PO DAILY 03/20/18 [History] metFORMIN HCL [Glucophage] 500 mg PO DAILY 03/20/18 [History] Allopurinol [Zyloprim] 100 mg PO DAILY 12/13/19 [History] Pravastatin Sodium [Pravachol] 40 mg PO HS 12/13/19 [History] Metoprolol Tartrate [Lopressor] 75 mg PO TID #135 tab 12/14/19 [Rx] Follow up Appointment(s)/Referral(s): Marco Haque MD [Primary Care Provider] - 1 Week Nsihi Michael MD [STAFF PHYSICIAN] - 1 Week El Do MD [Medical Doctor] - 1 Week (GB stones) Discharge Disposition: HOME SELF-CARE
--- NOTE | 2019-12-14 10:45 | P.CRDCN ---
History of Present Illness Consult date: 12/14/19 Requesting physician: Mark Calle Consult reason: atrial fibrillation Chief complaint: Palpitations and heart racing History of present illness: This is a 64-year-old gentleman who follows with Dr. Pal Michael in the office. He has a known history of hypertension, diabetes, hyperlipidemia, peripheral vascular disease, family history of premature coronary artery disease, nicotine dependence, coronary artery disease with prior RCA stenting in 1996. He also has history of atrial fibrillation for which 2 attempts at cardioversion have been made in the past which were unsuccessful. does have a history of chronic back pain from a work injury in 1999, he was switched from [place] to morphine in June and at the end of September developed a severe reaction from the morphine which was discontinued. Since that time the patient states he just has not felt well overall. He's having some discomfort in the umbilicus region, and has been more exertionally short of breath and feeling his heart racing fast. For these reasons she came to the emergency center for further evaluation and treatment. His EKG on presentation here showed atrial fibrillation with a rapid ventricular response. Chest x-ray did not reveal any acute process. Ultrasound of the abdomen was performed, suspicious for underlying hepatic steatosis, borderline hepatosplenomegaly, cholelithiasis. Limited exam. Blood pressure on arrival here 108/78 with a heart rate of 102, 99% on room air. Temperature 97.5. White blood cell count is normal, hemoglobin 16, platelet count 193. Sodium 141, potassium 4.7, BUN 16, creatinine 1.2. Troponins are negative 3. AST ALT and alk phos obtained are normal. TSH is normal. Past Medical History Past Medical History: Atrial Fibrillation, Chest Pain / Angina, Diabetes Mellitus, Hyperlipidemia, Hypertension, Musculoskeletal Disorder, Osteoarthritis (OA) Additional Past Medical History / Comment(s): BACK PAIN R/T OLD INJURY. EDEMA FEET/ANKLES. History of Any Multi-Drug Resistant Organisms: None Reported Past Surgical History: Back Surgery, Heart Catheterization, Heart Catheterization With Stent, Orthopedic Surgery Additional Past Surgical History / Comment(s): R Knee scope; Colonoscopy; Deviated Septum Repair. BACK SURG.X2 PTCA W/ STENTS X2. CARDIOVERSION 03/28/18. Past Anesthesia/Blood Transfusion Reactions: No Reported Reaction Date of Last Stent Placement:: 1997 Past Psychological History: No Psychological Hx Reported Smoking Status: Former smoker Past Alcohol Use History: None Reported Past Drug Use History: None Reported - Past Family History Mother Family Medical History: No Reported History Additional Family Medical History / Comment(s): Mother in her 80s from coronary artery disease. Father Additional Family Medical History / Comment(s): Father from coronary artery disease. Sister(s) Additional Family Medical History / Comment(s): Patient has 3 sisters one past from CVA. One has coronary artery disease with stent in 1 has no major medical problems. Patient is not having any children. Patient does not have any brothers. Medications and Allergies Home Medications Medication Instructions Recorded Confirmed Type Apixaban [Eliquis] 5 mg PO BID 03/20/18 12/13/19 History Cholecalciferol (Vitamin D3) 2,000 unit PO DAILY 03/20/18 12/13/19 History [Vitamin D3] Cyanocobalamin (Vitamin B-12) 1,000 mcg PO DAILY 03/20/18 12/13/19 History [Vitamin B-12] Cyclobenzaprine [Flexeril] 20 mg PO HS PRN 03/20/18 12/13/19 History Glimepiride [Amaryl] 1 mg PO AC-BRKFST 03/20/18 12/13/19 History Isosorbide Mononitrate ER [Imdur] 30 mg PO DAILY 03/20/18 12/13/19 History Krill Oil 1,500 mg PO DAILY 03/20/18 12/13/19 History Nitroglycerin Sl Tabs [Nitrostat] 0.4 mg SUBLINGUAL Q5M PRN 03/20/18 12/13/19 History amLODIPine [Norvasc] 5 mg PO DAILY 03/20/18 12/13/19 History metFORMIN HCL [Glucophage] 500 mg PO DAILY 03/20/18 12/13/19 History Metoprolol Tartrate [Lopressor] 50 mg PO TID 05/28/18 12/13/19 History Allopurinol [Zyloprim] 100 mg PO DAILY 12/13/19 12/13/19 History Pravastatin Sodium [Pravachol] 40 mg PO HS 12/13/19 12/13/19 History Allergies Allergy/AdvReac Type Severity Reaction Status Date / Time morphine Allergy Swelling Verified 02/21/20 09:42 Physical Exam Vitals: Vital Signs Temp Pulse Pulse Resp BP BP BP 12/14/19 08:00 56 L 18 158/83 12/14/19 04:00 49 L 18 117/70 12/14/19 00:00 98.0 F 69 18 127/80 12/13/19 20:00 97.6 F 67 18 109/66 12/13/19 18:16 97.3 F L 96 18 125/87 12/13/19 16:46 98.3 F 95 20 97/69 12/13/19 14:46 101 H 20 106/86 12/13/19 14:00 98 20 101/67 12/13/19 13:26 92 20 101/67 12/13/19 11:59 97.5 F L 62 20 164/82 12/13/19 11:58 102 H 20 114/99 Pulse Ox 12/14/19 08:00 94 L 12/14/19 04:00 95 12/14/19 00:00 100 12/13/19 20:00 95 12/13/19 18:16 99 12/13/19 16:46 99 12/13/19 14:46 99 12/13/19 14:00 98 12/13/19 13:26 98 12/13/19 11:59 96 12/13/19 11:58 99 Intake and Output 12/13/19 12/14/19 12/14/19 22:59 06:59 14:59 Intake Total 474.75 Balance 474.75 Intake: Intake, IV Titration 114.75 Amount Diltiazem 125 mg In 114.75 Sodium Chloride 0.9% 100 ml @ 5 MG/HR 5 mls/hr IV .Q24H [facility] Rx#:[id number] Oral 360 Other: # Voids 1 2 Weight 121.3 kg Gen: This is a 64-year-old male. In no acute distress at the time of my examination . HEENT: Head is atraumatic, normocephalic. Pupils equal, round. Sclerae is anicteric. NECK: Supple. No JVD. No lymphadenopathy. No thyromegaly. LUNGS: Clear to auscultation. No wheezes or rhonchi. No intercostal retractions. HEART: Irregularly irregular rate and rhythm. No murmur. ABDOMEN: Soft. Bowel sounds are present. No masses. No tenderness. Pain at periumbilical area EXTREMITIES: No pedal edema. No calf tenderness. NEUROLOGICAL: Patient is awake, alert and oriented x3. Cranial nerves 2 through 12 are grossly intact. Results 12/13/19 10:00 12/13/19 18:49 Cardiac Enzymes 12/13/19 12/13/19 12/13/19 Range/Units 10:00 15:40 21:47 Troponin I <0.012 0.012 0.012 (0.000-0.034) ng/mL Lipids 12/13/19 Range/Units 10:00 Triglycerides 184 H (<150) mg/dL Cholesterol 173 (<200) mg/dL HDL Cholesterol 33 L (40-60) mg/dL Comprehensive Metabolic Panel 12/13/19 Range/Units 18:49 Potassium 4.7 (3.5-5.1) mmol/L Current Medications Generic Name Dose Route Start Last Admin Trade Name Freq PRN Reason Stop Dose Admin Allopurinol 100 mg 12/14/19 09:00 12/14/19 09:14 Zyloprim PO 100 mg DAILY ANDREW Administration Amlodipine Besylate 5 mg 12/14/19 09:00 12/14/19 09:14 Norvasc PO 5 mg DAILY ANDREW Administration Apixaban 5 mg 12/13/19 12:15 12/14/19 09:14 Eliquis PO 5 mg BID ANDREW Administration Cyclobenzaprine HCl 20 mg 12/13/19 12:14 Flexeril PO HS PRN Muscle Spasm Famotidine 20 mg 12/14/19 09:00 12/14/19 09:14 Pepcid PO 20 mg DAILY ANDREW Administration Glimepiride 1 mg 12/14/19 07:30 12/14/19 09:18 Amaryl PO 1 mg AC-BRKFST ANDREW Administration Insulin Aspart 0 unit 12/13/19 12:30 12/14/19 09:15 Novolog SQ 2 unit ACHS ANDREW Administration Protocol Isosorbide Mononitrate 30 mg 12/13/19 12:15 12/14/19 09:14 Imdur PO 30 mg DAILY ANDREW Administration Metformin HCl 500 mg 12/13/19 12:15 12/14/19 09:14 Glucophage PO 500 mg AC-BRKFST ANDREW Administration Metoprolol Tartrate 50 mg 12/13/19 13:00 12/14/19 09:14 Lopressor PO 50 mg TID ANDREW Administration Nitroglycerin 0.4 mg 12/13/19 11:09 Nitrostat SUBLINGUAL Q5M PRN Chest Pain Nitroglycerin 1 inch 12/13/19 12:00 12/14/19 09:15 Nitro-Bid Oint TOPICAL Not Given Q6HR ANDREW Pravastatin Sodium 40 mg 12/13/19 21:00 12/13/19 21:35 Pravachol PO 40 mg HS ANDREW Administration Sodium Chloride 10 ml 12/13/19 21:00 12/14/19 09:15 Saline Flush IV 10 ml BID ANDREW Administration Intake and Output 12/13/19 12/14/19 12/14/19 22:59 06:59 14:59 Intake Total 474.75 Balance 474.75 Intake: Intake, IV Titration 114.75 Amount Diltiazem 125 mg In 114.75 Sodium Chloride 0.9% 100 ml @ 5 MG/HR 5 mls/hr IV .Q24H ANDREW Rx#:[id number] Oral 360 Other: # Voids 1 2 Weight 121.3 kg 12/13/19 10:00 12/13/19 18:49 EKG Interpretations (text) EKG shows atrial fibrillation with a rapid ventricular response Assessment and Plan Plan: Assessment and plan 1. A. fib with RVR, chronic atrial fibrillation, persistent. 2. Coronary artery disease with previous stents. 3. Diabetes mellitus type 2. 4. Hypertension. 5. Hyperlipidemia. 6. Chronic back pain. 7. Chronic kidney disease stage III. Plan Patient has been resumed on Eliquis. IV Cardizem has been discontinued. We will discontinue the Nitropaste, increase the dose of beta arslan. Patient may be discharged home today from our perspective, we will make him a follow-up appointment with Dr. Pal Michael in the office next week. DNP note has been reviewed, I agree with a documented findings and plan of care. Patient was seen and examined.
[2019-12-14 12:40] VITALS: BP 120/65; PULSE 67; TEMP 97.2
[2019-12-14 12:43] LABS: Glucose,Whole Blood 149 mg/dL (75-99)
[2019-12-14] MEDS ORDERED: METOPROLOL TARTRATE 50 MG TAB PO SCH (16:00)
== END 2019-12-14 15:08 | disposition home or self-care (01) ==
LOC: EC 09:37 → 3SCARD 11:09
PROVIDERS: ADMIT Internal Medicine; ATTEND Internal Medicine
DX: I48.19 Other persistent atrial fibrillation (principal); I25.10 Atherosclerotic heart disease of native coronary artery without angina pectoris; Z95.5 Presence of coronary angioplasty implant and graft; E11.51 Type 2 diabetes mellitus with diabetic peripheral angiopathy without gangrene; E11.22 Type 2 diabetes mellitus with diabetic chronic kidney disease; I12.9 Hypertensive chronic kidney disease with stage 1 through stage 4 chronic kidney disease, or unspecified chronic kidney disease; E78.5 Hyperlipidemia, unspecified; N18.3 Chronic kidney disease, stage 3 (moderate); G89.29 Other chronic pain; M54.9 Dorsalgia, unspecified; R10.9 Unspecified abdominal pain; I73.9 Peripheral vascular disease, unspecified; M19.90 Unspecified osteoarthritis, unspecified site; Z79.01 Long term (current) use of anticoagulants; Z79.84 Long term (current) use of oral hypoglycemic drugs; Z79.899 Other long term (current) drug therapy; Z88.5 Allergy status to narcotic agent; Z82.49 Family history of ischemic heart disease and other diseases of the circulatory system; Z82.3 Family history of stroke; Z87.891 Personal history of nicotine dependence
CPT/HCPCS: 36415; 93005; 83880; 80061; 80053; 83735; 84132; 84443; 84484; 85025; 85610; 85730; 71046; 76700; G0378 ×2

== ENCOUNTER 2019-12-27 09:38 | Emergency (ER) | payer MEDICARE, OTHER ==
[2019-12-27 09:47] VITALS: TEMP 97.7
[2019-12-27] MEDS ORDERED: HYDROmorphone 0.5 MG/0.5 ML SYRINGE IVP STA (10:18)
[2019-12-27] MEDS ORDERED: SODIUM CHLORIDE 0.9% 500 ML 500 ML IV STA (10:18)
[2019-12-27] MEDS ORDERED: KETOROLAC 30 MG/ML 1 ML VIAL IVP STA (10:18)
[2019-12-27 10:33] LABS: Basophils % (A) 0 %; Eosinophils # (A) 0.1 k/uL (0-0.7); Eosinophils % (A) 1 %; HGB 14.5 gm/dL (13.0-17.5); Lymphocytes # (A) 1.5 k/uL (1.0-4.8); Lymphocytes % (A) 17 %; MCH 33.6 pg (25.0-35.0); MCHC 33.7 g/dL (31.0-37.0); MCV 99.7 fL (80.0-100.0); Mean Platelet Volume 7.9; Monocytes # (A) 0.4 k/uL (0-1.0); Monocytes % (A) 5 %; Neutrophils # (A) 6.9 k/uL (1.3-7.7); Neutrophils % (A) 76 %; Platelet Count 157 k/uL (150-450); RBC 4.31 m/uL (4.30-5.90); RDW 13.1 % (11.5-15.5); WBC 9.2 k/uL (3.8-10.6)
[2019-12-27 10:43] LABS: Appearance,Urine Clear (Clear); Bilirubin,Urine Negative (Negative); Blood,Urine Moderate (Negative); Color,Urine Yellow; Glucose,Urine (UA) Trace (Negative); Ketones,Urine Trace (Negative); Leukocyte Esterase,Urine Negative (Negative); Mucus,Urine Rare /hpf; Nitrite,Urine Negative (Negative); Protein,Urine 1+ (Negative); RBC,Urine 46 /hpf (0-5); Specific Gravity,Urine 1.041 (1.001-1.035); Urobilinogen,Urine <2.0 mg/dL (<2.0); WBC,Urine 3 /hpf (0-5)
--- NOTE | 2019-12-27 10:49 | ED ---
Male Urogenital HPI - General Chief complaint: Urogenital Stated complaint: Abdominal pain Source: patient, EMS Mode of arrival: EMS Limitations: no limitations - History of Present Illness Initial comments: The patient is a 64-year-old male past medical history of A. fib on Eliquis who presents to emergency room with reported right groin pain. He states that he was seen at [facility] on Monday for similar complaint. He was diagnosed with a kidney stone that was "25%" past. They discharged him home and told to take Tylenol. States he's been taking the medications more than what's recommended. He feels as if "he's overdosed" on the medication. It is still no t controlling his pain. States that he was rolling around on the floor yesterday and discomfort. They did not discharge him home with any pain medications and he does not take any chronic pain medications at home. He was given a prescription for Flomax however states he hasn't been taking it. He denies dysuria, hematuria or difficulty voiding. No diarrhea, constipation, melenic stools or hematochezia. Continues to make urine. No fevers or chills. Denies nausea or vomiting. Does admit to some mild right flank pain. No chest or back pain. He does admit to one previous kidney stone in the past. There are no other alleviating, precipitating or modifying factors - Related Data Home Medications Medication Instructions Recorded Confirmed Apixaban [Eliquis] 5 mg PO BID 03/20/18 12/27/19 Cholecalciferol (Vitamin D3) 2,000 unit PO DAILY 03/20/18 12/27/19 [Vitamin D3] Cyanocobalamin (Vitamin B-12) 1,000 mcg PO DAILY 03/20/18 12/27/19 [Vitamin B-12] Cyclobenzaprine [Flexeril] 20 mg PO HS PRN 03/20/18 12/27/19 Glimepiride [Amaryl] 1 mg PO AC-BRKFST 03/20/18 12/27/19 Isosorbide Mononitrate ER [Imdur] 30 mg PO DAILY 03/20/18 12/27/19 Krill Oil 1,500 mg PO DAILY 03/20/18 12/27/19 Nitroglycerin Sl Tabs [Nitrostat] 0.4 mg SUBLINGUAL Q5M PRN 03/20/18 12/27/19 amLODIPine [Norvasc] 5 mg PO DAILY 03/20/18 12/27/19 metFORMIN HCL [Glucophage] 500 mg PO DAILY 03/20/18 12/27/19 Allopurinol [Zyloprim] 100 mg PO DAILY 12/13/19 12/27/19 Pravastatin Sodium [Pravachol] 40 mg PO HS 12/13/19 12/27/19 Tamsulosin [Flomax] 0.4 mg PO DAILY 12/27/19 12/27/19 Previous Rx's Medication Instructions Recorded Metoprolol Tartrate [Lopressor] 75 mg PO TID #135 tab 12/14/19 HYDROcodone/APAP 10-325MG [[place] 1 tab PO Q4HR PRN 3 Days #18 tab 12/27/19 10-325] Allergies Allergy/AdvReac Type Severity Reaction Status Date / Time morphine Allergy Swelling Verified 12/27/19 10:50 Review of Systems ROS Statement: Those systems with pertinent positive or pertinent negative responses have been documented in the HPI. ROS Other: All systems not noted in ROS Statement are negative. Past Medical History Past Medical History: Atrial Fibrillation, Chest Pain / Angina, Diabetes Mellitus, Hyperlipidemia, Hypertension, Musculoskeletal Disorder, Osteoarthritis (OA) Additional Past Medical History / Comment(s): BACK PAIN R/T OLD INJURY. EDEMA FEET/ANKLES. kidney stones History of Any Multi-Drug Resistant Organisms: None Reported Past Surgical History: Back Surgery, Heart Catheterization, Heart Catheterization With Stent, Orthopedic Surgery Additional Past Surgical History / Comment(s): R Knee scope; Colonoscopy; Deviated Septum Repair. BACK SURG.X2 PTCA W/ STENTS X2. CARDIOVERSION 03/28/18. Past Anesthesia/Blood Transfusion Reactions: No Reported Reaction Date of Last Stent Placement:: 1997 Past Psychological History: No Psychological Hx Reported Smoking Status: Former smoker Past Alcohol Use History: None Reported Past Drug Use History: None Reported - Past Family History Mother Family Medical History: No Reported History Additional Family Medical History / Comment(s): Mother in her 80s from coronary artery disease. Father Additional Family Medical History / Comment(s): Father from coronary artery disease. Sister(s) Additional Family Medical History / Comment(s): Patient has 3 sisters one past from CVA. One has coronary artery disease with stent in 1 has no major medical problems. Patient is not having any children. Patient does not have any brothers. General Exam Limitations: no limitations Course Vital Signs 12/27/19 12/27/19 09:41 12:00 Temperature 97.7 F Pulse Rate 85 83 Respiratory 20 Rate Blood Pressure 132/106 123/87 O2 Sat by Pulse 96 98 Oximetry Medical Decision Making - Medical Decision Making Upon arrival the patient was placed into room 8. A thorough history and physical exam was performed. The patient was given 15 mg of Toradol through peripheral IV as well as 1 mg of Dilaudid. I did request repeating laboratory studies and a urine. I did review the patient's records from [facility]. Laboratory studies did demonstrate a creatinine of 1.3. This is near the patient's baseline. Urinalysis shows trace ketones, moderate blood and 46 red blood cells. Tylenol level is normal at 20.4. His last dose of Tylenol was graded 4 hours prior to hospital arrival. KUB performed demonstrates a 5 mm calcination in the right renal pelvis. Records from [facility] demonstrates an 8 mm proximal ureteral stone on the right. Patient is reevaluated has had improvement in his symptoms. He does not have any pain medications at home other than Tylenol. At this time I did discharge the patient home with a prescription for [place]. He is to take the medications as directed. Do not take additional Tylenol. He is to call and make an appointment with the urologist. Return to the emergency room for any new or worsening symptoms. She tripped return parameters were discussed. The patient was in agreement with this plan and was discharged home with - Lab Data Result diagrams: 12/27/19 09:58 12/27/19 09:58 Lab Results 12/27/19 12/27/19 12/27/19 Range/Units 09:58 09:58 10:30 WBC 9.2 (3.8-10.6) k/uL RBC 4.31 (4.30-5.90) m/uL Hgb 14.5 (13.0-17.5) gm/dL Hct 43.0 (39.0-53.0) % MCV 99.7 (80.0-100.0) fL MCH 33.6 (25.0-35.0) pg MCHC 33.7 (31.0-37.0) g/dL RDW 13.1 (11.5-15.5) % Plt Count 157 (150-450) k/uL Neutrophils % 76 % Lymphocytes % 17 % Monocytes % 5 % Eosinophils % 1 % Basophils % 0 % Neutrophils # 6.9 (1.3-7.7) k/uL Lymphocytes # 1.5 (1.0-4.8) k/uL Monocytes # 0.4 (0-1.0) k/uL Eosinophils # 0.1 (0-0.7) k/uL Basophils # 0.0 (0-0.2) k/uL Sodium 137 (137-145) mmol/L Potassium 5.5 H (3.5-5.1) mmol/L Chloride 108 H (98-107) mmol/L Carbon Dioxide 18 L (22-30) mmol/L Anion Gap 11 mmol/L BUN 21 H (9-20) mg/dL Creatinine 1.37 H (0.66-1.25) mg/dL Est GFR (CKD-EPI)AfAm 63 (>60 ml/min/1.73 sqM) Est GFR (CKD-EPI)NonAf 54 (>60 ml/min/1.73 sqM) Glucose 158 H (74-99) mg/dL Calcium 9.6 (8.4-10.2) mg/dL Total Bilirubin 1.0 (0.2-1.3) mg/dL AST 21 (17-59) U/L ALT 14 (4-49) U/L Alkaline Phosphatase 64 (38-126) U/L Total Protein 7.2 (6.3-8.2) g/dL Albumin 3.9 (3.5-5.0) g/dL Urine Color Yellow Urine Appearance Clear (Clear) Urine pH 5.0 (5.0-8.0) Ur Specific [place] 1.041 H (1.001-1.035) Urine Protein 1+ H (Negative) Urine Glucose (UA) Trace H (Negative) Urine Ketones Trace H (Negative) Urine Blood Moderate H (Negative) Urine Nitrite Negative (Negative) Urine Bilirubin Negative (Negative) Urine Urobilinogen <2.0 (<2.0) mg/dL Ur Leukocyte Esterase Negative (Negative) Urine RBC 46 H (0-5) /hpf Urine WBC 3 (0-5) /hpf Urine Mucus Rare H (None) /hpf Acetaminophen 20.4 ug/mL Disposition Clinical Impression: Right ureteral stone Disposition: HOME SELF-CARE Condition: Stable Instructions (If sedation given, give patient instructions): Ureteral Stones (E D) Additional Instructions: Please call and make an appointment with the urologist. Take the [place] medication as directed. Do not take any additional Tylenol. Return to the emergency room for any new or worsening symptoms. Continue to take the Flomax Prescriptions: HYDROcodone/APAP 10-325MG [[place] 10-325] 1 tab PO Q4HR PRN 3 Days #18 tab PRN Reason: Pain Is patient prescribed a controlled substance at d/c from ED?: Yes When asked, does pt state using other controlled substances?: No If prescribed controlled substance>3 days was MAPS reviewed?: Prescribed <3 Days If opioid is for acute pain is fill amount 7 days or less?: Yes If Rx opioid, was Start Talking consent form obtained?: Yes Referrals: Marco Haque MD [Primary Care Provider] - 1-2 days Marco Adair MD [STAFF PHYSICIAN] - 1-2 days Time of Disposition: 11:50
[2019-12-27 10:56] LABS: Acetaminophen 20.4 ug/mL; Albumin 3.9 g/dL (3.5-5.0); Calcium 9.6 mg/dL (8.4-10.2); Potassium 5.5 mmol/L (3.5-5.1); Total Protein 7.2 g/dL (6.3-8.2)
--- NOTE | 2019-12-27 11:17 | XR ---
EXAMINATION TYPE: XR KUB portable DATE OF EXAM: 12/27/2019 COMPARISON: None HISTORY: Diagnosed with kidney stone right side TECHNIQUE: AP abdomen FINDINGS: There is a 0.5 cm calcification in the expected region of the right renal pelvis. Psoas margins are normal. Some air-fluid levels are within the loop of small bowel within the left mi dabdomen. Normal colonic bowel gas is present. No additional suspicious calcifications are evident. O rganomegaly is not evident. IMPRESSION: 1. 0.5 cm calcification in the expected region of the right renal pelvis. 2. Focal ileus may be in the left midabdomen.
[2019-12-27] MEDS ORDERED: HYDROmorphone 1 MG/ML 1 ML SYRINGE IVP STA (11:54)
[2019-12-27 12:00] VITALS: BP 123/87; PULSE 83; RESP 20
== END 2019-12-27 12:09 | disposition home or self-care (01) ==
LOC: EC 09:38
DX: N20.1 Calculus of ureter (principal); I48.91 Unspecified atrial fibrillation; E11.9 Type 2 diabetes mellitus without complications; I10 Essential (primary) hypertension; E78.5 Hyperlipidemia, unspecified; Z79.84 Long term (current) use of oral hypoglycemic drugs; Z79.899 Other long term (current) drug therapy; Z79.01 Long term (current) use of anticoagulants; Z88.5 Allergy status to narcotic agent; Z95.5 Presence of coronary angioplasty implant and graft; Z87.891 Personal history of nicotine dependence
CPT/HCPCS: 36415; 80053; 85025; 81001; 74018; 99284; 96374; 96375; 96376; 96361; G0480; J1885; J1170 ×2; 80329

== ENCOUNTER 2019-12-28 08:45 | Inpatient (IN) | payer MEDICARE, OTHER ==
[2019-12-28] MEDS ORDERED: KETOROLAC 30 MG/ML 1 ML VIAL IVP STA (08:46)
[2019-12-28] MEDS ORDERED: HYDROmorphone 1 MG/ML 1 ML SYRINGE IVP STA (08:46)
[2019-12-28] MEDS ORDERED: SODIUM CHLORIDE 0.9% 1,000 ML IV STA (08:46)
[2019-12-28 09:15] LABS: Basophils # (A) 0.1 k/uL (0-0.2); Basophils % (A) 1 %; Eosinophils # (A) 0.1 k/uL (0-0.7); Eosinophils % (A) 2 %; HCT 41.3 % (39.0-53.0); HGB 13.7 gm/dL (13.0-17.5); Lymphocytes # (A) 1.4 k/uL (1.0-4.8); Lymphocytes % (A) 15 %; MCH 33.2 pg (25.0-35.0); MCHC 33.2 g/dL (31.0-37.0); MCV 99.9 fL (80.0-100.0); Mean Platelet Volume 7.8; Monocytes # (A) 0.4 k/uL (0-1.0); Monocytes % (A) 5 %; Neutrophils # (A) 6.7 k/uL (1.3-7.7); Neutrophils % (A) 76 %; Platelet Count 159 k/uL (150-450); RBC 4.13 m/uL (4.30-5.90); RDW 13.2 % (11.5-15.5); WBC 8.8 k/uL (3.8-10.6)
[2019-12-28 09:22] LABS: Albumin 3.9 g/dL (3.5-5.0); Calcium 9.2 mg/dL (8.4-10.2); Potassium 5.6 mmol/L (3.5-5.1); Total Bilirubin 0.6 mg/dL (0.2-1.3); Total Protein 7.2 g/dL (6.3-8.2)
--- NOTE | 2019-12-28 09:22 | ED ---
Male Urogenital HPI - General Chief complaint: Urogenital Stated complaint: Kidney Stones Time Seen by Provider: 12/28/19 08:50 Source: patient Mode of arrival: EMS Limitations: no limitations - History of Present Illness Initial comments: The patient is a 64-year-old male past medical history of kidney stones, A. fib who presents emergency room with continued right-sided flank pain. Patient was diagnosed with a kidney stone at [facility] on Monday. He was discharged home with Tylenol. States he is taking the medications as directed however pain was uncontrolled at home. He then presented to the hospital yesterday. He was evaluated and there was no signs of infection or renal impairment. His pain was well controlled while he was in the hospital. He was discharged home with a prescription for [place]. States he's been taking medi cations as directed however his pain remains out of control. Denies any fevers or chills. No decrease in urination. Does admit to some nausea. Denies hematuria. There are no other alleviating, precipitating or modifying factors - Related Data Home Medications Medication Instructions Recorded Confirmed Apixaban [Eliquis] 5 mg PO BID 03/20/18 12/28/19 Cholecalciferol (Vitamin D3) 2,000 unit PO DAILY 03/20/18 12/28/19 [Vitamin D3] Cyanocobalamin (Vitamin B-12) 1,000 mcg PO DAILY 03/20/18 12/28/19 [Vitamin B-12] Cyclobenzaprine [Flexeril] 10 mg PO HS PRN 03/20/18 12/28/19 Glimepiride [Amaryl] 1 mg PO AC-BRKFST 03/20/18 12/28/19 Isosorbide Mononitrate ER [Imdur] 30 mg PO DAILY 03/20/18 12/28/19 Krill Oil 1,500 mg PO DAILY 03/20/18 12/28/19 Nitroglycerin Sl Tabs [Nitrostat] 0.4 mg SUBLINGUAL Q5M PRN 03/20/18 12/28/19 amLODIPine [Norvasc] 5 mg PO DAILY 03/20/18 12/28/19 metFORMIN HCL [Glucophage] 500 mg PO DAILY 03/20/18 12/28/19 Allopurinol [Zyloprim] 100 mg PO DAILY 12/13/19 12/28/19 Pravastatin Sodium [Pravachol] 40 mg PO HS 12/13/19 12/28/19 Tamsulosin [Flomax] 0.4 mg PO DAILY 12/27/19 12/28/19 HYDROcodone/APAP 10-325MG [[place] 1 tab PO Q4H PRN 12/28/19 12/28/19 10-325] Previous Rx's Medication Instructions Recorded Metoprolol Tartrate [Lopressor] 75 mg PO TID #135 tab 12/14/19 Hydrocodone/Acetaminophen [[place] 1 each PO Q4HR PRN #14 tab 12/31/19 7.5-325] Ketorolac [Toradol] 10 mg PO Q6HR #20 tab 12/31/19 Allergies Allergy/AdvReac Type Severity Reaction Status Date / Time morphine Allergy Swelling Verified 12/28/19 12:45 Review of Systems ROS Statement: Those systems with pertinent positive or pertinent negative responses have been documented in the HPI. ROS Other: All systems not noted in ROS Statement are negative. Past Medical History Past Medical History: Atrial Fibrillation, Chest Pain / Angina, Diabetes Mellitus, Hyperlipidemia, Hypertension, Musculoskeletal Disorder, Osteoarthritis (OA) Additional Past Medical History / Comment(s): BACK PAIN R/T OLD INJURY. EDEMA FEET/ANKLES. kidney stones History of Any Multi-Drug Resistant Organisms: None Reported Past Surgical History: Back Surgery, Heart Catheterization, Heart Cat heterization With Stent, Orthopedic Surgery Additional Past Surgical History / Comment(s): R Knee scope; Colonoscopy; Deviated Septum Repair. BACK SURG.X2 PTCA W/ STENTS X2. CARDIOVERSION 03/28/18. Past Anesthesia/Blood Transfusion Reactions: No Reported Reaction Date of Last Stent Placement:: 1997 Past Psychological History: No Psychological Hx Reported Smoking Status: Former smoker Past Alcohol Use History: None Reported Past Drug Use History: None Reported - Past Family History Mother Family Medical History: No Reported History Additional Family Medical History / Comment(s): Mother in her 80s from coronary artery disease. Father Additional Family Medical History / Comment(s): Father from coronary artery disease. Sister(s) Additional Family Medical History / Comment(s): Patient has 3 sisters one past from CVA. One has coronary artery disease with stent in 1 has no major medical problems. Patient is not having any children. Patient does not have any bro thers. General Exam Limitations: no limitations General appearance: alert, in no apparent distress Head exam: Present: atraumatic, normocephalic, normal inspection Eye exam: Present: normal appearance, PERRL, EOMI. Absent: scleral icterus, conjunctival injection, periorbital swelling ENT exam: Present: normal exam, mucous membranes moist Neck exam: Present: normal inspection. Absent: tenderness, meningismus, lymphadenopathy Respiratory exam: Present: normal lung sounds bilaterally. Absent: respiratory distress, wheezes, rales, rhonchi, stridor Cardiovascular Exam: Present: regular rate, normal rhythm, normal heart sounds. Absent: systolic murmur, diastolic murmur, rubs, gallop, clicks GI/Abdominal exam: Present: soft, normal bowel sounds. Absent: distended, tenderness, guarding, rebound, rigid Extremities exam: Present: normal inspection, full ROM, normal capillary refill. Absent: tenderness, pedal edema, joint swelling, calf tenderness Back exam: Present: normal inspection Neurological exam: Present: alert, oriented X3, CN II-XII intact Psychiatric exam: Present: normal affect, normal mood Skin exam: Present: warm, dry, intact, normal color. Absent: rash Course Vital Signs 12/28/19 12/28/19 12/28/19 08:46 09:30 10:30 Temperature 97.0 F L Pulse Rate 75 72 104 H Respiratory 18 18 18 Rate Blood Pressure 102/72 103/82 105/86 O2 Sat by Pulse 100 98 95 Oximetry Medical Decision Making - Medical Decision Making Upon arrival the patient was placed into room 15. A thorough history and physical exam was performed. I did review the record from yesterday. The patient was given 15 mg of Toradol and 1 mg of Dilaudid. I did repeat laboratory studies and a KUB. Laboratory studies demonstrate an elevated creatinine of 1.68 from yesterday and creatinine of 1.3. Urinalysis shows large blood, small leukocyte E[place]ace, 159 red blood cells and rare bacteria. X-ray demonstrates a proximal right ureteral stone. I reevaluated patient is resting comfortably in bed. The patient has failed outpatient pain management and therefore I called and discussed the case with Dr. Gaitan who accepted admission for the patient. Bridging orders are placed the patient was taken to the floor in stable condition - Lab Data Result diagrams: 12/29/19 07:31 12/29/19 07:31 Lab Results 12/28/19 12/28/19 12/28/19 Range/Units 08:55 08:55 08:55 WBC 8.8 (3.8-10.6) k/uL RBC 4.13 L (4.30-5.90) m/uL Hgb 13.7 (13.0-17.5) gm/dL Hct 41.3 (39.0-53.0) % MCV 99.9 (80.0-100.0) fL MCH 33.2 (25.0-35.0) pg MCHC 33.2 (31.0-37.0) g/dL RDW 13.2 (11.5-15.5) % Plt Count 159 (150-450) k/uL Neutrophils % 76 % Lymphocytes % 15 % Monocytes % 5 % Eosinophils % 2 % Basophils % 1 % Neutrophils # 6.7 (1.3-7.7) k/uL Lymphocytes # 1.4 (1.0-4.8) k/uL Monocytes # 0.4 (0-1.0) k/uL Eosinophils # 0.1 (0-0.7) k/uL Basophils # 0.1 (0-0.2) k/uL Macrocytosis Sodium 136 L (137-145) mmol/L Potassium 5.6 H (3.5-5.1) mmol/L Chloride 109 H (98-107) mmol/L Carbon Dioxide 17 L (22-30) mmol/L Anion Gap 10 mmol/L BUN 28 H (9-20) mg/dL Creatinine 1.68 H (0.66-1.25) mg/dL Est GFR (CKD-EPI)AfAm 49 (>60 ml/min/1.73 sqM) Est GFR (CKD-EPI)NonAf 42 (>60 ml/min/1.73 sqM) Glucose 167 H (74-99) mg/dL POC Glucose (mg/dL) (75-99) mg/dL POC Glu Audiology Assistant ID Plasma Lactic Acid [place] 1.2 (0.7-2.0) mmol/L Calcium 9.2 (8.4-10.2) mg/dL Total Bilirubin 0.6 (0.2-1.3) mg/dL AST 21 (17-59) U/L ALT 14 (4-49) U/L Alkaline Phosphatase 80 (38-126) U/L Total Protein 7.2 (6.3-8.2) g/dL Albumin 3.9 (3.5-5.0) g/dL Lipase 306 H (23-300) U/L Urine Color Urine Appearance (Clear) Urine pH (5.0-8.0) Ur Specific [place] (1.001-1.035) Urine Protein (Negative) Urine Glucose (UA) (Negative) Urine Ketones (Negative) Urine Blood (Negative) Urine Nitrite (Negative) Urine Bilirubin (Negative) Urine Urobilinogen (<2.0) mg/dL Ur Leukocyte Esterase (Negative) Urine RBC (0-5) /hpf Urine WBC (0-5) /hpf Urine Bacteria (None) /hpf Urine Mucus (None) /hpf 12/28/19 12/29/19 12/29/19 Range/Units 10:05 07:31 07:31 WBC 8.2 (3.8-10.6) k/uL RBC 4.04 L (4.30-5.90) m/uL Hgb 13.3 (13.0-17.5) gm/dL Hct 41.0 (39.0-53.0) % MCV 101.4 H (80.0-100.0) fL MCH 32.9 (25.0-35.0) pg MCHC 32.5 (31.0-37.0) g/dL RDW 13.4 (11.5-15.5) % Plt Count 154 (150-450) k/uL Neutrophils % 78 % Lymphocytes % 15 % Monocytes % 4 % Eosinophils % 1 % Basophils % 1 % Neutrophils # 6.4 (1.3-7.7) k/uL Lymphocytes # 1.2 (1.0-4.8) k/uL Monocytes # 0.4 (0-1.0) k/uL Eosinophils # 0.1 (0-0.7) k/uL Basophils # 0.0 (0-0.2) k/uL Macrocytosis Slight Sodium 136 L (137-145) mmol/L Potassium 5.8 H (3.5-5.1) mmol/L Chloride 106 (98-107) mmol/L Carbon Dioxide 19 L (22-30) mmol/L Anion Gap 11 mmol/L BUN 34 H (9-20) mg/dL Creatinine 1.86 H (0.66-1.25) mg/dL Est GFR (CKD-EPI)AfAm 43 (>60 ml/min/1.73 sqM) Est GFR (CKD-EPI)NonAf 38 (>60 ml/min/1.73 sqM) Glucose 155 H (74-99) mg/dL POC Glucose (mg/dL) (75-99) mg/dL POC Glu Audiology Assistant ID Plasma Lactic Acid [place] (0.7-2.0) mmol/L Calcium 9.1 (8.4-10.2) mg/dL Total Bilirubin (0.2-1.3) mg/dL AST (17-59) U/L ALT (4-49) U/L Alkaline Phosphatase (38-126) U/L Total Protein (6.3-8.2) g/dL Albumin (3.5-5.0) g/dL Lipase (23-300) U/L Urine Color Yellow Urine Appearance Clear (Clear) Urine pH 5.0 (5.0-8.0) Ur Specific [place] 1.042 H (1.001-1.035) Urine Protein 1+ H (Negative) Urine Glucose (UA) Trace H (Negative) Urine Ketones Negative (Negative) Urine Blood Large H (Negative) Urine Nitrite Negative (Negative) Urine Bilirubin Negative (Negative) Urine Urobilinogen 2.0 (<2.0) mg/dL Ur Leukocyte Esterase Small H (Negative) Urine RBC 159 H (0-5) /hpf Urine WBC 9 H (0-5) /hpf Urine Bacteria Rare H (None) /hpf Urine Mucus Few H (None) /hpf 12/29/19 Range/Units 11:38 WBC (3.8-10.6) k/uL RBC (4.30-5.90) m/uL Hgb (13.0-17.5) gm/dL Hct (39.0-53.0) % MCV (80.0-100.0) fL MCH (25.0-35.0) pg MCHC (31.0-37.0) g/dL RDW (11.5-15.5) % Plt Count (150-450) k/uL Neutrophils % % Lymphocytes % % Monocytes % % Eosinophils % % Basophils % % Neutrophils # (1.3-7.7) k/uL Lymphocytes # (1.0-4.8) k/uL Monocytes # (0-1.0) k/uL Eosinophils # (0-0.7) k/uL Basophils # (0-0.2) k/uL Macrocytosis Sodium (137-145) mmol/L Potassium (3.5-5.1) mmol/L Chloride (98-107) mmol/L Carbon Dioxide (22-30) mmol/L Anion Gap mmol/L BUN (9-20) mg/dL Creatinine (0.66-1.25) mg/dL Est GFR (CKD-EPI)AfAm (>60 ml/min/1.73 sqM) Est GFR (CKD-EPI)NonAf (>60 ml/min/1.73 sqM) Glucose (74-99) mg/dL POC Glucose (mg/dL) 162 H (75-99) mg/dL POC Glu Audiology Assistant ID Malissa, Terin Plasma Lactic Acid [place] (0.7-2.0) mmol/L Calcium (8.4-10.2) mg/dL Total Bilirubin (0.2-1.3) mg/dL AST (17-59) U/L ALT (4-49) U/L Alkaline Phosphatase (38-126) U/L Total Protein (6.3-8.2) g/dL Albumin (3.5-5.0) g/dL Lipase (23-300) U/L Urine Color Urine Appearance (Clear) Urine pH (5.0-8.0) Ur Specific [place] (1.001-1.035) Urine Protein (Negative) Urine Glucose (UA) (Negative) Urine Ketones (Negative) Urine Blood (Negative) Urine Nitrite (Negative) Urine Bilirubin (Negative) Urine Urobilinogen (<2.0) mg/dL Ur Leukocyte Esterase (Negative) Urine RBC (0-5) /hpf Urine WBC (0-5) /hpf Urine Bacteria (None) /hpf Urine Mucus (None) /hpf - EKG Data EKG Comments: EKG demonstrates A. fib with a rapid ventricular response of 101. QRS 110. QTC of 44. There is an incomplete left bundle-branch 5. No acute ST segment elevations. This an inverted T-wave in mild ST depression in V6. Disposition Clinical Impression: Right ureteral stone Disposition: ADMITTED IP TO THIS [facility] Condition: Good Is patient prescribed a controlled substance at d/c from ED?: No Decision to Admit Reason: Admit from [facility] Decision Date: 12/28/19 Decision Time: 10:29
--- NOTE | 2019-12-28 09:29 | XR ---
EXAMINATION TYPE: XR KUB DATE OF EXAM: 12/28/2019 9:14 AM CLINICAL HISTORY: Right flank pain. TECHNIQUE: Two Upright KUB images of the abdomen are obtained. COMPARISON: Abdominal x-ray from yesterday. FINDINGS: Scattered gas is seen in non-distended stomach and small bowel loops. Gas and fecal materia l is seen in non-distended colon. Stable possible 5 mm proximal right ureter calculus inferior L3 lev el. Moderate narrowing and spurring both hip joints. Lung bases are clear. No pneumoperitoneum. IMPRESSION: Overall nonobstructive bowel gas pattern. Suspect stable proximal 5 mm right ureter calculus.
[2019-12-28] MEDS ORDERED: NALOXONE 0.4 MG/ML 1 ML VIAL IV PRN (10:30)
[2019-12-28] MEDS ORDERED: KETOROLAC 30 MG/ML 1 ML VIAL IVP PRN (10:30)
[2019-12-28 10:38] LABS: Appearance,Urine Clear (Clear); Bacteria,Urine Rare /hpf; Bilirubin,Urine Negative (Negative); Blood,Urine Large (Negative); Color,Urine Yellow; Glucose,Urine (UA) Trace (Negative); Ketones,Urine Negative (Negative); Leukocyte Esterase,Urine Small (Negative); Mucus,Urine Few /hpf; Nitrite,Urine Negative (Negative); Protein,Urine 1+ (Negative); RBC,Urine 159 /hpf (0-5); Specific Gravity,Urine 1.042 (1.001-1.035); WBC,Urine 9 /hpf (0-5)
[2019-12-28] MEDS: SODIUM CHLORIDE 0.9% 1,000 ML IV SCH ×2 (10:47→20:39)
--- NOTE | 2019-12-28 11:07 | P.GSHP ---
History of Present Illness H&P Date: 12/28/19 This is a 64-year-old gentleman with a history kidney stones back in the late . For the last several days he has had severe right flank pain. He was at [facility] where they identified an 8 mm upper ureteral stone. The pain persisted and he came to [facility]. A KUB was performed and identified the 8 mm ureteral stone. They sent him home on [place] only to have him return. His pain is not controlled therefore we'll admit him for IV hydration and parenteral narcotics. Patient has had no fever or chills. The stone is as mentioned above. There are no other obvious stones. He does have a history of atrial fibrillation and is on Eliquis Past Medical History Past Medical History: Atrial Fibrillation, Chest Pain / Angina, Diabetes Mellitus, Hyperlipidemia, Hypertension, Musculoskeletal Disorder, Osteoarthritis (OA) Additional Past Medical History / Comment(s): BACK PAIN R/T OLD INJURY. EDEMA FEET/ANKLES. kidney stones History of Any Multi-Drug Resistant Organisms: None Reported Past Surgical History: Back Surgery, Heart Catheterization, Heart Catheterization With Stent, Orthopedic Surgery Additional Past Surgical History / Comment(s): R Knee scope; Colonoscopy; Deviated Septum Repair. BACK SURG.X2 PTCA W/ STENTS X2. CARDIOVERSION 03/28/18. Past Anesthesia/Blood Transfusion Reactions: No Reported Reaction Date of Last Stent Placement:: 1997 Past Psychological History: No Psychological Hx Reported Smoking Status: Former smoker Past Alcohol Use History: None Reported Past Drug Use History: None Reported - Past Family History Mother Family Medical History: No Reported History Additional Family Medical History / Comment(s): Mother in her 80s from coronary artery disease. Father Additional Family Medical History / Comment(s): Father from coronary artery disease. Sister(s) Additional Family Medical History / Comment(s): Patient has 3 sisters one past from CVA. One has coronary artery disease with stent in 1 has no major medical problems. Patient is not having any children. Patient does not have any brothers. Medications and Allergies Home Medications Medication Instructions Recorded Confirmed Type Apixaban [Eliquis] 5 mg PO BID 03/20/18 12/27/19 History Cholecalciferol (Vitamin D3) 2,000 unit PO DAILY 03/20/18 12/27/19 History [Vitamin D3] Cyanocobalamin (Vitamin B-12) 1,000 mcg PO DAILY 03/20/18 12/27/19 History [Vitamin B-12] Cyclobenzaprine [Flexeril] 20 mg PO HS PRN 03/20/18 12/27/19 History Glimepiride [Amaryl] 1 mg PO AC-BRKFST 03/20/18 12/27/19 History Isosorbide Mononitrate ER [Imdur] 30 mg PO DAILY 03/20/18 12/27/19 History Krill Oil 1,500 mg PO DAILY 03/20/18 12/27/19 History Nitroglycerin Sl Tabs [Nitrostat] 0.4 mg SUBLINGUAL Q5M PRN 03/20/18 12/27/19 History amLODIPine [Norvasc] 5 mg PO DAILY 03/20/18 12/27/19 History metFORMIN HCL [Glucophage] 500 mg PO DAILY 03/20/18 12/27/19 History Allopurinol [Zyloprim] 100 mg PO DAILY 12/13/19 12/27/19 History Pravastatin Sodium [Pravachol] 40 mg PO HS 12/13/19 12/27/19 History Metoprolol Tartrate [Lopressor] 75 mg PO TID #135 tab 12/14/19 12/27/19 Rx HYDROcodone/APAP 10-325MG [[place] 1 tab PO Q4HR PRN 3 Days #18 tab 12/27/19 Rx 10-325] Tamsulosin [Flomax] 0.4 mg PO DAILY 12/27/19 12/27/19 History Allergies Allergy/AdvReac Type Severity Reaction Status Date / Time morphine Allergy Swelling Verified 12/28/19 08:54 Surgical - Exam Vital Signs Temp Pulse Resp BP Pulse Ox 97.0 F L 75 18 102/72 100 12/28/19 08:46 12/28/19 08:46 12/28/19 08:46 12/28/19 08:46 12/28/19 08:46 - General moderate distress - Eyes PERRL - ENT no hearing loss - Neck no masses, trachea midline - Respiratory normal expansion, normal respiratory effort - Cardiovascular Rhythm: irregularly irregular - Abdomen Abdomen: soft, tender - Genitourinary normal penis with no external lesions, testicles present - Integumentary no rash, no growths - Neurologic normal coordination, normal sensation - Musculoskeletal normal posture - Psychiatric oriented to time, oriented to person, oriented to place, speech is normal, memory intact Results - Labs 12/28/19 08:55 12/28/19 08:55 Abnormal Lab Results - Last 24 Hours (Table) 12/28/19 12/28/19 12/28/19 Range/Units 08:55 08:55 10:05 RBC 4.13 L (4.30-5.90) m/uL Sodium 136 L (137-145) mmol/L Potassium 5.6 H (3.5-5.1) mmol/L Chloride 109 H (98-107) mmol/L Carbon Dioxide 17 L (22-30) mmol/L BUN 28 H (9-20) mg/dL Creatinine 1.68 H (0.66-1.25) mg/dL Glucose 167 H (74-99) mg/dL Lipase 306 H (23-300) U/L Ur Specific [place] 1.042 H (1.001-1.035) Urine Protein 1+ H (Negative) Urine Glucose (UA) Trace H (Negative) Urine Blood Large H (Negative) Ur Leukocyte Esterase Small H (Negative) Urine RBC 159 H (0-5) /hpf Urine WBC 9 H (0-5) /hpf Urine Bacteria Rare H (None) /hpf Urine Mucus Few H (None) /hpf Diabetes panel 12/28/19 Range/Units 08:55 Sodium 136 L (137-145) mmol/L Potassium 5.6 H (3.5-5.1) mmol/L Chloride 109 H (98-107) mmol/L Carbon Dioxide 17 L (22-30) mmol/L BUN 28 H (9-20) mg/dL Creatinine 1.68 H (0.66-1.25) mg/dL Glucose 167 H (74-99) mg/dL Calcium 9.2 (8.4-10.2) mg/dL AST 21 (17-59) U/L ALT 14 (4-49) U/L Alkaline Phosphatase 80 (38-126) U/L Total Protein 7.2 (6.3-8.2) g/dL Albumin 3.9 (3.5-5.0) g/dL Calcium panel 12/28/19 Range/Units 08:55 Calcium 9.2 (8.4-10.2) mg/dL Albumin 3.9 (3.5-5.0) g/dL Pituitary panel 12/28/19 Range/Units 08:55 Sodium 136 L (137-145) mmol/L Potassium 5.6 H (3.5-5.1) mmol/L Chloride 109 H (98-107) mmol/L Carbon Dioxide 17 L (22-30) mmol/L BUN 28 H (9-20) mg/dL Creatinine 1.68 H (0.66-1.25) mg/dL Glucose 167 H (74-99) mg/dL Calcium 9.2 (8.4-10.2) mg/dL Adrenal panel 12/28/19 Range/Units 08:55 Sodium 136 L (137-145) mmol/L Potassium 5.6 H (3.5-5.1) mmol/L Chloride 109 H (98-107) mmol/L Carbon Dioxide 17 L (22-30) mmol/L BUN 28 H (9-20) mg/dL Creatinine 1.68 H (0.66-1.25) mg/dL Glucose 167 H (74-99) mg/dL Calcium 9.2 (8.4-10.2) mg/dL Total Bilirubin 0.6 (0.2-1.3) mg/dL AST 21 (17-59) U/L ALT 14 (4-49) U/L Alkaline Phosphatase 80 (38-126) U/L Total Protein 7.2 (6.3-8.2) g/dL Albumin 3.9 (3.5-5.0) g/dL - Imaging Abdominal x-ray: report reviewed, image reviewed Assessment and Plan Assessment: Impression: Right ureteral stone with pain and obstruction Recommendations: He'll be admitted for pain control. We'll see how he does over the day and decide whether he'll need a stent or whether he can manage the discomfort until we do ureteroscopy or shockwave lithotripsy if he cannot pass the stone.
[2019-12-28] MEDS ORDERED: CYCLOBENZAPRINE 10 MG TAB PO PRN (11:53)
[2019-12-28] MEDS ORDERED: NITROGLYCERIN SL TABS 0.4 MG TAB SUBLINGUAL PRN (11:53)
[2019-12-28] MEDS: HYDROmorphone 1 MG/ML 1 ML SYRINGE IVP PRN ×4 (12:05→23:23)
[2019-12-28] MEDS: METOPROLOL TARTRATE 50 MG TAB PO SCH ×2 (15:16→20:33)
[2019-12-28] MEDS: APIXABAN 5 MG TAB PO SCH (20:33)
[2019-12-28] MEDS: PRAVASTATIN SODIUM 40 MG TAB PO SCH (20:33)
[2019-12-29] MEDS: HYDROmorphone 1 MG/ML 1 ML SYRINGE IVP PRN ×7 (03:17→22:47)
[2019-12-29] MEDS: CHOLECALCIFEROL 1,000 UNIT TAB PO SCH (07:23)
[2019-12-29] MEDS: ISOSORBIDE MONONITRATE ER 30 MG TAB.ER.24H PO SCH (07:23)
[2019-12-29] MEDS: GLIMEPIRIDE 1 MG TAB PO SCH (07:23)
[2019-12-29] MEDS: CYANOCOBALAMIN 500 MCG TAB PO SCH (07:23)
[2019-12-29] MEDS: METOPROLOL TARTRATE 50 MG TAB PO SCH ×3 (07:23→21:48)
[2019-12-29] MEDS: APIXABAN 5 MG TAB PO SCH ×2 (07:24→21:48)
[2019-12-29] MEDS: metFORMIN 500 MG TAB PO SCH (07:24)
[2019-12-29] MEDS: TAMSULOSIN 0.4 MG CAP.ER.24H PO SCH (07:24)
[2019-12-29] MEDS: amLODIPine 5 MG TAB PO SCH (07:24)
[2019-12-29] MEDS: ALLOPURINOL 100 MG TAB PO SCH (07:24)
[2019-12-29 07:53] LABS: Basophils % (A) 1 %; Eosinophils # (A) 0.1 k/uL (0-0.7); Eosinophils % (A) 1 %; HGB 13.3 gm/dL (13.0-17.5); Lymphocytes # (A) 1.2 k/uL (1.0-4.8); Lymphocytes % (A) 15 %; MCH 32.9 pg (25.0-35.0); MCHC 32.5 g/dL (31.0-37.0); MCV 101.4 fL (80.0-100.0); Macrocytosis Slight; Mean Platelet Volume 7.9; Monocytes # (A) 0.4 k/uL (0-1.0); Monocytes % (A) 4 %; Neutrophils # (A) 6.4 k/uL (1.3-7.7); Neutrophils % (A) 78 %; Platelet Count 154 k/uL (150-450); RBC 4.04 m/uL (4.30-5.90); RDW 13.4 % (11.5-15.5); WBC 8.2 k/uL (3.8-10.6)
[2019-12-29 08:05] LABS: Calcium 9.1 mg/dL (8.4-10.2); Potassium 5.8 mmol/L (3.5-5.1)
--- NOTE | 2019-12-29 11:22 | P.PN ---
Subjective Progress Note Date: 12/29/19 The patient continues with pain from the right ureteral stone. Treatment options have been discussed I will proceed with right ureteroscopy and laser lithotripsy tomorrow. The risks have been discussed Objective - Vital Signs Vital signs: Vital Signs Temp 98.3 F 12/29/19 05:51 Pulse 111 H 12/29/19 05:51 Resp 18 12/29/19 05:51 BP 128/90 12/29/19 05:51 Pulse Ox 95 12/29/19 05:51 Intake & Output 12/28/19 12/29/19 12/29/19 17:59 06:59 18:59 Intake Total 400 Output Total Balance 400 Weight Intake: Oral 400 Output: Urine Other: # Voids - Labs CBC & Chem 7: 12/29/19 07:31 12/29/19 07:31 Labs: Abnormal Lab Results - Last 24 Hours (Table) 12/28/19 12/29/19 12/29/19 Range/Units 10:05 07:31 07:31 RBC 4.04 L (4.30-5.90) m/uL MCV 101.4 H (80.0-100.0) fL Sodium 136 L (137-145) mmol/L Potassium 5.8 H (3.5-5.1) mmol/L Carbon Dioxide 19 L (22-30) mmol/L BUN 34 H (9-20) mg/dL Creatinine 1.86 H (0.66-1.25) mg/dL Glucose 155 H (74-99) mg/dL Ur Specific [place] 1.042 H (1.001-1.035) Urine Protein 1+ H (Negative) Urine Glucose (UA) Trace H (Negative) Urine Blood Large H (Negative) Ur Leukocyte Esterase Small H (Negative) Urine RBC 159 H (0-5) /hpf Urine WBC 9 H (0-5) /hpf Urine Bacteria Rare H (None) /hpf Urine Mucus Few H (None) /hpf
[2019-12-29 11:40] LABS: Glucose,Whole Blood 162 mg/dL (75-99)
[2019-12-29] MEDS: INSULIN ASPART (NovoLOG) 100 UNIT/ML VIAL SQ SCH ×3 (11:56→21:49)
[2019-12-29] MEDS: SODIUM CHLORIDE 0.9% 1,000 ML IV SCH (11:58)
[2019-12-29 16:55] LABS: Glucose,Whole Blood 115 mg/dL (75-99)
[2019-12-29] MEDS: PRAVASTATIN SODIUM 40 MG TAB PO SCH (21:48)
[2019-12-29 22:02] LABS: Glucose,Whole Blood 97 mg/dL (75-99)
[2019-12-30] MEDS: HYDROmorphone 1 MG/ML 1 ML SYRINGE IVP PRN ×5 (02:00→23:45)
[2019-12-30] MEDS: SODIUM CHLORIDE 0.9% 1,000 ML IV SCH ×2 (02:45→18:16)
[2019-12-30] MEDS: INSULIN ASPART (NovoLOG) 100 UNIT/ML VIAL SQ SCH ×5 (07:12→20:59)
[2019-12-30 07:23] LABS: Glucose,Whole Blood 93 mg/dL (75-99)
[2019-12-30] MEDS: GLIMEPIRIDE 1 MG TAB PO SCH (07:25)
[2019-12-30] MEDS: APIXABAN 5 MG TAB PO SCH ×2 (07:26→20:47)
[2019-12-30] MEDS: metFORMIN 500 MG TAB PO SCH (07:32)
[2019-12-30] MEDS: ISOSORBIDE MONONITRATE ER 30 MG TAB.ER.24H PO SCH (07:41)
[2019-12-30] MEDS: METOPROLOL TARTRATE 50 MG TAB PO SCH ×3 (07:41→20:55)
[2019-12-30] MEDS: amLODIPine 5 MG TAB PO SCH (07:41)
[2019-12-30] MEDS: CHOLECALCIFEROL 1,000 UNIT TAB PO SCH (07:42)
[2019-12-30] MEDS: CYANOCOBALAMIN 500 MCG TAB PO SCH (07:42)
[2019-12-30] MEDS: ALLOPURINOL 100 MG TAB PO SCH (07:42)
[2019-12-30] MEDS: TAMSULOSIN 0.4 MG CAP.ER.24H PO SCH (07:42)
[2019-12-30 11:32] LABS: Glucose,Whole Blood 85 mg/dL (75-99)
[2019-12-30] MEDS ORDERED: IV FLUID CONTINUATION 1,000 ML IV ONE (14:13)
[2019-12-30] MEDS ORDERED: MIDAZOLAM 2 MG/2 ML VIAL ONE (14:20)
[2019-12-30] MEDS ORDERED: ceFAZolin 1,000 MG VIAL ONE (14:20)
[2019-12-30] MEDS ORDERED: PROPOFOL 10 MG/ML 20 ML VIAL IV ONE (14:20)
[2019-12-30] MEDS ORDERED: ESMOLOL 100 MG/10 ML VIAL ONE (14:20)
[2019-12-30] MEDS ORDERED: fentaNYL (PF) 50 MCG/ML 2 ML AMP ONE (14:20)
[2019-12-30] MEDS ORDERED: PHENYLEPHRINE-0.9% NACL SYG 1 MG/10 ML SYRINGE ONE (14:20)
[2019-12-30] MEDS ORDERED: KETOROLAC 30 MG/ML 1 ML VIAL ONE (14:20)
[2019-12-30] MEDS ORDERED: LIDOCAINE 1% INJ 10MG/ML (20 ML MDV) ONE (14:20)
[2019-12-30] MEDS ORDERED: DEXAMETHASONE SOD PHOSPHATE 10 MG/ML 1 ML VIAL IV ONE (14:23)
[2019-12-30] MEDS ORDERED: ONDANSETRON 4 MG/2 ML VIAL IVP ONE (14:25)
[2019-12-30] MEDS ORDERED: SODIUM CHLORIDE 0.9% 100 ML with ceFAZolin 2,000 MG IV ONE ×2 (14:42)
[2019-12-30] MEDS ORDERED: IOPAMIDOL-370 50ML BTL MISCELLANE ONE (14:42)
[2019-12-30] MEDS ORDERED: LACTATED RINGERS 1,000 ML IV ONE (14:53)
--- NOTE | 2019-12-30 15:53 | P.OP ---
Date of Procedure: 12/30/19 Preoperative Diagnosis: Right ureteral stone Postoperative Diagnosis: Same Procedure(s) Performed: Cystoscopy, right retrograde pyelogram, right ureteroscopy with laser lithotripsy, placement of 626 stent Anesthesia: SANDOR Surgeon: Marco Adair Estimated Blood Loss (ml): 25 Pathology: other (Stone) Condition: stable Disposition: PACU Indications for Procedure: The patient is a 64-year-old gentleman with an impacted 8-9 mm proximal right ureteral stone who comes for ureteroscopy and laser lithotripsy Description of Procedure: The patient is brought to the operating suite. He is given a successful general endotracheal anesthesia. He's placed lithotomy position with sterile prep and drape. Fluoroscopy does not obviously identify the stone but the patient is quite large. Cystoscopies performed. Urethra is normal. The prostate is not obstructing. Ureteral orifices and bladder mucosa is unremarkable. Within a cone-tipped catheter right retrograde pyelograms performed and the ureteral stone is identified in the proximal right ureter. I then pass an 035 wire up in the renal pelvis. Over the wires and passed an 26-27-Pyvjpk reentry sheath. I removed the inner sheath and the wire pass a flexible ureteroscope up to the stone which is impacted in the ureter. With a 275 probe and 3-4 W of energy the stone was broken into tinier pieces. Unfortunately most of that migrates back up into the kidney. Follow the stone in the kidney and [place] in the lower pole calyx. I then am able to break it into tiny pieces. I basket the largest fragments. Due to the edema from where the stone lie I will leave a double-J catheter. Through the ureteroscope and 035 wires passed into the kidney. I removed the ureteroscope and back loaded the wire onto the cystoscope. Over the wire through the cystoscope a 6 x 26 double-J catheters passed and coils in the renal pelvis and the bladder. The bladder is drained the patient's awake and returned recovery room good condition. He tolerated the procedure well and will stay in the hospital overnight be discharged home tomorrow.
[2019-12-30] MEDS ORDERED: HYDROmorphone 0.5 MG/0.5 ML SYRINGE IVP ONE ×3 (16:19→16:29)
--- NOTE | 2019-12-30 16:29 | FL ---
Fluoroscopy HISTORY: Stent placement 25 seconds fluoroscopy time supplied to the referring clinician. 5 intraoperative C-arm images docum ent the procedure. See dictated report from urology.
[2019-12-30 16:46] LABS: Glucose,Whole Blood 120 mg/dL (75-99)
[2019-12-30 20:10] LABS: Glucose,Whole Blood 268 mg/dL (75-99)
[2019-12-30] MEDS: PRAVASTATIN SODIUM 40 MG TAB PO SCH (20:47)
[2019-12-31] MEDS: HYDROmorphone 1 MG/ML 1 ML SYRINGE IVP PRN ×3 (02:59→10:11)
[2019-12-31 04:31] VITALS: BP 131/75; PULSE 109; RESP 18; TEMP 98.4
[2019-12-31] MEDS: SODIUM CHLORIDE 0.9% 1,000 ML IV SCH (05:23)
[2019-12-31 07:50] LABS: Glucose,Whole Blood 176 mg/dL (75-99)
[2019-12-31] MEDS: GLIMEPIRIDE 1 MG TAB PO SCH (10:10)
[2019-12-31] MEDS: ALLOPURINOL 100 MG TAB PO SCH (10:10)
[2019-12-31] MEDS: amLODIPine 5 MG TAB PO SCH (10:10)
[2019-12-31] MEDS: APIXABAN 5 MG TAB PO SCH (10:10)
[2019-12-31] MEDS: metFORMIN 500 MG TAB PO SCH (10:10)
[2019-12-31] MEDS: CYANOCOBALAMIN 500 MCG TAB PO SCH (10:10)
[2019-12-31] MEDS: CHOLECALCIFEROL 1,000 UNIT TAB PO SCH (10:10)
[2019-12-31] MEDS: ISOSORBIDE MONONITRATE ER 30 MG TAB.ER.24H PO SCH (10:11)
[2019-12-31] MEDS: TAMSULOSIN 0.4 MG CAP.ER.24H PO SCH (10:11)
[2019-12-31] MEDS: INSULIN ASPART (NovoLOG) 100 UNIT/ML VIAL SQ SCH ×2 (10:11→13:28)
[2019-12-31] MEDS: METOPROLOL TARTRATE 50 MG TAB PO SCH (10:11)
[2019-12-31 12:20] LABS: Glucose,Whole Blood 167 mg/dL (75-99)
--- NOTE | 2019-12-31 12:35 | P.DS ---
Providers Date of admission: 12/29/19 13:30 Attending physician: Marco Adair [facility] Hospital Course: The patient is 64. He presented to the hospital 48 hours ago with severe ureteral colic. He had a stone many years ago. He is admitted for IV hydration and pain control. The pain was not adequately controlled therefore yesterday underwent ureteroscopy and stone manipulation. A stent was placed. The stone the bulk of the stone was removed. He is ready for discharge home. He'll go home and regular diet limited activity. A follow-up in office in 10 days for stent removal he is given a prescription of hydrocodone and acetaminophen and Toradol. Both these are small prescriptions. Postoperative instructions been given and understood and accepted I will see him in the office in 10 days. Patient Condition at Discharge: Good Plan - Discharge Summary New Discharge Prescriptions: New Hydrocodone/Acetaminophen [[place] 7.5-325] 1 each PO Q4HR PRN #14 tab PRN Reason: Pain Control Ketorolac [Toradol] 10 mg PO Q6HR #20 tab No Action metFORMIN HCL [Glucophage] 500 mg PO DAILY Nitroglycerin Sl Tabs [Nitrostat] 0.4 mg SUBLINGUAL Q5M PRN PRN Reason: Chest Pain Glimepiride [Amaryl] 1 mg PO AC-BRKFST Cyclobenzaprine [Flexeril] 10 mg PO HS PRN PRN Reason: Muscle Spasm amLODIPine [Norvasc] 5 mg PO DAILY Isosorbide Mononitrate ER [Imdur] 30 mg PO DAILY Apixaban [Eliquis] 5 mg PO BID Krill Oil 1,500 mg PO DAILY Cyanocobalamin (Vitamin B-12) [Vitamin B-12] 1,000 mcg PO DAILY Cholecalciferol (Vitamin D3) [Vitamin D3] 2,000 unit PO DAILY Allopurinol [Zyloprim] 100 mg PO DAILY Pravastatin Sodium [Pravachol] 40 mg PO HS Metoprolol Tartrate [Lopressor] 75 mg PO TID #135 tab Tamsulosin [Flomax] 0.4 mg PO DAILY HYDROcodone/APAP 10-325MG [[place] 10-325] 1 tab PO Q4H PRN PRN Reason: Pain Discharge Medication List Apixaban [Eliquis] 5 mg PO BID 03/20/18 [History] Cholecalciferol (Vitamin D3) [Vitamin D3] 2,000 unit PO DAILY 03/20/18 [History] Cyanocobalamin (Vitamin B-12) [Vitamin B-12] 1,000 mcg PO DAILY 03/20/18 [History] Cyclobenzaprine [Flexeril] 10 mg PO HS PRN 03/20/18 [History] Glimepiride [Amaryl] 1 mg PO AC-BRKFST 03/20/18 [History] Isosorbide Mononitrate ER [Imdur] 30 mg PO DAILY 03/20/18 [History] Krill Oil 1,500 mg PO DAILY 03/20/18 [History] Nitroglycerin Sl Tabs [Nitrostat] 0.4 mg SUBLINGUAL Q5M PRN 03/20/18 [History] amLODIPine [Norvasc] 5 mg PO DAILY 03/20/18 [History] metFORMIN HCL [Glucophage] 500 mg PO DAILY 03/20/18 [History] Allopurinol [Zyloprim] 100 mg PO DAILY 12/13/19 [History] Pravastatin Sodium [Pravachol] 40 mg PO HS 12/13/19 [History] Metoprolol Tartrate [Lopressor] 75 mg PO TID #135 tab 12/14/19 [Rx] Tamsulosin [Flomax] 0.4 mg PO DAILY 12/27/19 [History] HYDROcodone/APAP 10-325MG [[place] 10-325] 1 tab PO Q4H PRN 12/28/19 [History] Hydrocodone/Acetaminophen [[place] 7.5-325] 1 each PO Q4HR PRN #14 tab 12/31/19 [Rx] Ketorolac [Toradol] 10 mg PO Q6HR #20 tab 12/31/19 [Rx] Follow up Appointment(s)/Referral(s): Marco Haque MD [Primary Care Provider] - 1-2 days Marco Adair MD [STAFF PHYSICIAN] - 10 Days (cysto and stent removal) Patient Instructions/Handouts: Kidney Stones (DC), Type 2 Diabetes in Adults: New Diagnosis (DC) Discharge Disposition: HOME SELF-CARE
--- NOTE | 2020-01-03 13:06 | CDI ---
Documentation Clarification Form Date: 01/03/20 From: Devora Alvarenga CCS Phone: If you have a question about this query, please contact Amanda Lane, Direct Sales Representative at [phone] between 8am and 5pm. Admit Date: 12/29/19 Discharge Date: 12/31/19 Patient Name: Diaz Riley Visit Number: [id number] ATTENTION: The Clinical Documentation Specialists (CDI) and [facility] Coding Staff appreciate your assistance in clarifying documentation. Please respond to the clarification below the line at the bottom and electronically sign. The CDI & [facility] Coding staff will review the response and follow-up if needed. Please note: Queries are made part of the Legal Health Record. If you have any questions, please contact the author of this message via ITS. Dear Dr. Adair, Atrial Fibrillation is documented in the ED, H&P. History/Risk Factors: HTN, DM Clinical Indicators: Atrial Fibrillation EKG/telemetry: Atrial Fibrillation w/ RVR Treatment: Eliquis 5 mg PO BID In your professional opinion, can you please clarify the type of Atrial Fibrillation, if known? Chronic/Permanent Paroxysmal Persistent Other, please specify Unable to determine Probably chronic. TC MTDD
== END 2019-12-31 13:54 | disposition home or self-care (01) | DRG 660 ==
LOC: EC 08:45 → 6NMEDSUR 10:31 → OBSVTOIN 12-29 13:30
PROVIDERS: ADMIT Urology; ATTEND Urology
PROC: BT1D1ZZ Fluoroscopy of Right Kidney, Ureter and Bladder using Low Osmolar Contrast (ICD-10-PCS; 2019-12-30)
PROC: 0T768DZ Dilation of Right Ureter with Intraluminal Device, Via Natural or Artificial Opening Endoscopic (ICD-10-PCS; principal; 2019-12-30 07:30)
PROC: 0TC68ZZ Extirpation of Matter from Right Ureter, Via Natural or Artificial Opening Endoscopic (ICD-10-PCS; 2019-12-30 07:30)
DX: N20.2 Calculus of kidney with calculus of ureter (principal); I48.20 Chronic atrial fibrillation, unspecified; I10 Essential (primary) hypertension; E78.5 Hyperlipidemia, unspecified; E11.9 Type 2 diabetes mellitus without complications; M19.90 Unspecified osteoarthritis, unspecified site; R79.89 Other specified abnormal findings of blood chemistry; Z87.442 Personal history of urinary calculi; Z79.01 Long term (current) use of anticoagulants; Z79.84 Long term (current) use of oral hypoglycemic drugs; Z79.899 Other long term (current) drug therapy; Z88.5 Allergy status to narcotic agent; Z87.828 Personal history of other (healed) physical injury and trauma; Z95.5 Presence of coronary angioplasty implant and graft; Z98.890 Other specified postprocedural states; Z87.891 Personal history of nicotine dependence; Z82.49 Family history of ischemic heart disease and other diseases of the circulatory system; Z82.3 Family history of stroke
CPT/HCPCS: 36415; 74018; 74420; 80048; 80053; 80329; 81001; 82365; 83605; 83690; 85025; 93005; 96361; 96374; 96375; 96376; 99284; 99285

== ENCOUNTER → 2021-06-07 | Outpatient (CLI) | payer MEDICARE, OTHER ==
--- NOTE | 2021-06-07 10:08 | CT ---
EXAMINATION TYPE: CT abdomen pelvis wo con DATE OF EXAM: 06/07/2021 COMPARISON: None HISTORY: Right sided flank pain. CT DLP: 1834.1 mGycm Examination of the solid and hollow viscera is limited given the lack of contrast. FINDINGS: LUNG BASES: No evidence for nodule. No evidence for infiltrate. LIVER/GB: Small layering gallstones identified. No space-occupying hepatic lesion. PANCREAS: No pancreatic mass identified. No inflammatory process seen. SPLEEN: No evidence for splenomegaly. No intrasplenic lesions seen. ADRENALS: No adrenal nodules identified. No evidence for thickening. KIDNEYS: No evidence for renal mass. 8 mm calculus left UPJ resulting in mild left-sided hydronephros is. No additional calculi seen at this time. BOWEL: Appendix has a normal appearance. No evidence of bowel obstruction. No inflammatory process. Lymph nodes: No evidence for adenopathy greater than 1 cm. Abdominal aorta: Atheromatous changes seen. No evidence for aneurysm. Genital organs: No significant abnormality. Other: Fat-containing bilateral inguinal hernias. IMPRESSION: 8 mm calculus left UPJ resulting in mild left-sided hydronephrosis. No additional calculi seen at thi s time.
== END | disposition home or self-care (01) ==
LOC: RADCTMAIN 09:22
PROVIDERS: ATTEND Urology
DX: N13.2 Hydronephrosis with renal and ureteral calculous obstruction (principal)
CPT/HCPCS: 74176

== ENCOUNTER → 2022-09-29 | Outpatient (CLI) | payer MEDICARE, OTHER ==
--- NOTE | 2022-09-29 12:13 | CT ---
EXAMINATION TYPE: CT chest abdomen wo con DATE OF EXAM: 09/29/2022 COMPARISON: CT abdomen pelvis 06/07/2021 HISTORY: Abnormal weight loss, Dyspnea, Abdominal Pain CT DLP: 951mGycm Unenhanced CT of the Chest, Abdomen and Pelvis Unenhanced CT of the chest ,abdomen is performed. The lack of intravenous contrast limits evaluation of the solid and hollow viscera. Oral contrast: None CT Chest: LUNGS: The lungs are clear and free of infiltrate or atelectasis. No pulmonary nodule or mass is det ected. She basilar parenchymal scarring. No pleural effusion or CT evidence of interstitial lung dis ease. MEDIASTINUM: Thoracic aorta is of normal caliber. The heart is not enlarged. No evidence for media stinal mass or adenopathy. Moderate cardiomegaly. HILAR STRUCTURES: No evidence for mass. No hilar adenopathy is appreciated. OTHER: No significant abnormality. CONTRAST CT ABDOMEN AND PELVIS: LIVER/GB: Gallbladder hydrops measuring 11.7 cm with small gallstones noted. No obvious wall thickeni ng or pericholecystic fluid. No space occupying hepatic lesion. Biliary tree is of normal caliber. PANCREAS: No inflammation. No distinct mass. SPLEEN: No splenic enlargement. No lesion seen. ADRENALS: No nodule. No thickening. KIDNEYS/BLADDER: 5.5 cm calculus left UPJ resulting in mild left-sided hydronephrosis. Nonobstructing 3 mm calculus right kidney. No distinct renal mass. BOWEL: Normal appendix. Normal bowel caliber. No inflammation. LYMPH NODES: No greater than 1cm abdominal or pelvic lymph nodes are appreciated. AORTA: No significant abnormality. OSSEOUS STRUCTURES: No significant abnormality is seen. OTHER: No significant additional abnormality is seen. IMPRESSION: 1. Gallbladder hydrops measuring 11.7 cm with small gallstones noted. No obvious wall thickening or p ericholecystic fluid. 2. 5.5 cm calculus left UPJ resulting in mild left-sided hydronephrosis.
== END | disposition home or self-care (01) ==
LOC: RADCTMAIN 10:08
PROVIDERS: ATTEND Family Medicine
DX: N13.2 Hydronephrosis with renal and ureteral calculous obstruction (principal); K80.20 Calculus of gallbladder without cholecystitis without obstruction; K82.1 Hydrops of gallbladder; I51.7 Cardiomegaly; R63.4 Abnormal weight loss
CPT/HCPCS: 71250; 74150; 82565; 84520

== ENCOUNTER 2022-10-13 11:11 | Emergency (ER) | payer MEDICARE, OTHER ==
[2022-10-13 11:23] VITALS: RESP 18
[2022-10-13] MEDS ORDERED: PANTOPRAZOLE 40 MG/10 ML VIAL IVP STA (11:40)
[2022-10-13] MEDS ORDERED: ONDANSETRON 4 MG/2 ML VIAL IVP STA (11:40)
--- NOTE | 2022-10-13 12:04 | ED ---
General Adult HPI - General Chief complaint: Urogenital Stated complaint: abn labs Time Seen by Provider: 10/13/22 11:24 Source: patient, RN notes reviewed Mode of arrival: ambulatory Limitations: no limitations - History of Present Illness Initial comments: Patient is a pleasant 67-year-old male presenting to the emergency department with concern for liver problems. Patient is unclear when this started despite being questioned several times on this. Patient states he does not hardly notice it. Patient states his doctor did do labs recently and his liver tests were elevated. Patient also had problems with his kidney function recently as well. Patient states he did have a computed tomography scan done recently showing kidney stone on the left. Patient does have history of kidney stones and has been having kidney stone pain over the past couple of weeks. Patient feels significantly fatigued. Patient has dark urine. - Related Data Home Medications Medication Instructions Recorded Confirmed Apixaban [Eliquis] 5 mg PO BID 03/20/18 10/13/22 Cyanocobalamin (Vitamin B-12) 1,000 mcg PO DAILY 03/20/18 10/13/22 [Vitamin B-12] Cyclobenzaprine [Flexeril] 10 mg PO HS PRN 03/20/18 10/13/22 Isosorbide Mononitrate ER [Imdur] 30 mg PO DAILY 03/20/18 10/13/22 Krill Oil 1,500 mg PO DAILY 03/20/18 10/13/22 Nitroglycerin Sl Tabs [Nitrostat] 0.4 mg SUBLINGUAL Q5M PRN 03/20/18 10/13/22 Pravastatin Sodium [Pravachol] 40 mg PO HS 12/13/19 10/13/22 allopurinoL [Zyloprim] 100 mg PO DAILY 12/13/19 10/13/22 Cholecalciferol [Vitamin D3 (25 50 mcg PO DAILY 10/13/22 10/13/22 Mcg = 1000 Iu)] Furosemide [Lasix] 20 mg PO DAILY 10/13/22 10/13/22 Insulin Degludec [Tresiba 20 units SQ DAILY 10/13/22 10/13/22 Flextouch U-100 Pen] Metoprolol Tartrate [Lopressor] 50 mg PO HS 10/13/22 10/13/22 Metoprolol Tartrate [Lopressor] 100 mg PO DAILY 10/13/22 10/13/22 Allergies Allergy/AdvReac Type Severity Reaction Status Date / Time morphine Allergy Swelling Verified 10/13/22 13:33 Review of Systems ROS Statement: Those systems with pertinent positive or pertinent negative responses have been documented in the HPI. ROS Other: All systems not noted in ROS Statement are negative. Constitutional: Denies: fever Eyes: Denies: eye pain ENT: Denies: ear pain Respiratory: Denies: cough Cardiovascular: Denies: chest pain Endocrine: Reports: fatigue Gastrointestinal: Reports: as per HPI, abdominal pain Genitourinary: Reports: as per HPI Musculoskeletal: Denies: back pain Skin: Denies: rash Neurological: Denies: headache Past Medical History Past Medical History: Atrial Fibrillation, Chest Pain / Angina, Diabetes Mellitus, Hyperlipidemia, Hypertension, Musculoskeletal Disorder, Osteoarthritis (OA) Additional Past Medical History / Comment(s): BACK PAIN R/T OLD INJURY. EDEMA FEET/ANKLES. kidney stones History of Any Multi-Drug Resistant Organisms: None Reported Past Surgical History: Back Surgery, Heart Catheterization, Heart Catheterization With Stent, Orthopedic Surgery Additional Past Surgical History / Comment(s): R Knee scope; Colonoscopy; Deviated Septum Repair. BACK SURG.X2 PTCA W/ STENTS X2. CARDIOVERSION 03/28/18. Past Anesthesia/Blood Transfusion Reactions: No Reported Reaction Date of Last Stent Placement:: 1997 Past Psychological History: No Psychological Hx Reported Smoking Status: Former smoker Past Alcohol Use History: None Reported Past Drug Use History: None Reported - Past Family History Mother Family Medical History: No Reported History Additional Family Medical History / Comment(s): Mother in her 80s from coronary artery disease. Father Additional Family Medical History / Comment(s): Father from coronary artery disease. Sister(s) Additional Family Medical History / Comment(s): Patient has 3 sisters one past from CVA. One has coronary artery disease with stent in 1 has no major medical problems. Patient is not having any children. Patient does not have any brothers. General Exam Limitations: no limitations General appearance: alert, in no apparent distress Head exam: Present: atraumatic Eye exam: Present: scleral icterus Neck exam: Present: normal inspection Respiratory exam: Present: normal lung sounds bilaterally Cardiovascular Exam: Present: regular rate, irregular rhythm Expanded Peripheral pulses: 2+: Radial (R), Radial (L), Dorsalis Pedis (R), Dorsalis Pedis (L) GI/Abdominal exam: Present: soft, tenderness (Mild diffuse tenderness). Absent: distended Extremities exam: Present: normal inspection Neurological exam: Present: alert. Absent: motor sensory deficit Psychiatric exam: Present: normal affect, normal mood Skin exam: Present: other (Jaundice appearance of the skin) Course Vital Signs 10/13/22 11:14 Temperature 97.1 F L Pulse Rate 85 Respiratory 18 Rate Blood Pressure 95/70 - Reevaluation(s) Reevaluation #1: 10/13/22 15:05 [facility], [facility], and [facility], they are all still determining there is availability. EKG Findings - EKG Results: EKG: interpreted by DANNAD (Septal Q waves. Lateral T wave inversion.), normal axis EKG shows: atrial fibrillation Medical Decision Making - Medical Decision Making Patient reevaluated. Patient updated on plan. Patient will need A neurology evaluation. We are attempting to transfer to [facility]. - Lab Data Result diagrams: 10/13/22 12:50 10/13/22 12:50 Lab Results 10/13/22 10/13/22 10/13/22 Range/Units 12:50 12:50 12:50 WBC 6.2 (3.8-10.6) k/uL RBC 4.33 (4.30-5.90) m/uL Hgb 15.1 (13.0-17.5) gm/dL Hct 47.9 (39.0-53.0) % MCV 110.7 H (80.0-100.0) fL MCH 35.0 (25.0-35.0) pg MCHC 31.6 (31.0-37.0) g/dL RDW 13.5 (11.5-15.5) % Plt Count 127 L (150-450) k/uL MPV 10.8 Neutrophils % 72 % Lymphocytes % 16 % Monocytes % 6 % Eosinophils % 3 % Basophils % 1 % Neutrophils # 4.5 (1.3-7.7) k/uL Lymphocytes # 1.0 (1.0-4.8) k/uL Monocytes # 0.4 (0-1.0) k/uL Eosinophils # 0.2 (0-0.7) k/uL Basophils # 0.1 (0-0.2) k/uL Hypochromasia Moderate Macrocytosis Marked A PT 12.4 H (9.0-12.0) sec INR 1.2 H (<1.2) APTT 27.4 (22.0-30.0) sec Sodium 140 (137-145) mmol/L Potassium 4.1 (3.5-5.1) mmol/L Chloride 107 (98-107) mmol/L Carbon Dioxide 22 (22-30) mmol/L Anion Gap 11 mmol/L BUN 30 H (9-20) mg/dL Creatinine 1.43 H (0.66-1.25) mg/dL Est GFR (CKD-EPI)AfAm 59 (>60 ml/min/1.73 sqM) Est GFR (CKD-EPI)NonAf 51 (>60 ml/min/1.73 sqM) Glucose 173 H (74-99) mg/dL Calcium 9.4 (8.4-10.2) mg/dL Total Bilirubin 21.2 H* (0.2-1.3) mg/dL AST 180 H (17-59) U/L ALT 138 H (4-49) U/L Alkaline Phosphatase 452 H (38-126) U/L Total Protein 7.8 (6.3-8.2) g/dL Albumin 3.7 (3.5-5.0) g/dL Amylase 51 (30-110) U/L Lipase 212 (23-300) U/L - Radiology Data Radiology results: report reviewed (Computed tomography scan of abdomen and pelvis does have concern for pancreatic head mass resulting in common bile duct and gallbladder dilation. Pancreatic duct prominence also noted.) Interpreted by me: KUB shows nonobstructive pattern. Possible ileus or enteritis. Left renal calculi. Disposition Clinical Impression: Biliary obstruction, Pancreatic mass Disposition: OTHER INSTITUTION NOT DEFINED Condition: Serious Is patient prescribed a controlled substance at d/c from ED?: No Referrals: Marco Haque MD [Primary Care Provider] - 1-2 days - Out of Hospital Transfer - Req. Specs Out of Hospital Transfer - Requested Specifics: Other Emergency Center
[2022-10-13 13:03] LABS: Basophils # (A) 0.1 k/uL (0-0.2); Basophils % (A) 1 %; Eosinophils # (A) 0.2 k/uL (0-0.7); Eosinophils % (A) 3 %; HCT 47.9 % (39.0-53.0); HGB 15.1 gm/dL (13.0-17.5); Hypochromasia Moderate; Lymphocytes % (A) 16 %; MCHC 31.6 g/dL (31.0-37.0); MCV 110.7 fL (80.0-100.0); Macrocytosis Marked; Mean Platelet Volume 10.8; Monocytes # (A) 0.4 k/uL (0-1.0); Monocytes % (A) 6 %; Neutrophils # (A) 4.5 k/uL (1.3-7.7); Neutrophils % (A) 72 %; Platelet Count 127 k/uL (150-450); RBC 4.33 m/uL (4.30-5.90); RDW 13.5 % (11.5-15.5); WBC 6.2 k/uL (3.8-10.6)
[2022-10-13 13:10] LABS: Albumin 3.7 g/dL (3.5-5.0); Calcium 9.4 mg/dL (8.4-10.2); Potassium 4.1 mmol/L (3.5-5.1)
[2022-10-13 13:27] LABS: Total Bilirubin 21.2 mg/dL (0.2-1.3); Total Protein 7.8 g/dL (6.3-8.2)
--- NOTE | 2022-10-13 13:41 | XR ---
EXAMINATION TYPE: XR KUB DATE OF EXAM: 10/13/2022 Comparison: 12/28/2019 Clinical History: 67-year-old male abdominal pain Findings: Gassy bowel with mild to moderate stool burden. Some prominent air-filled small bowel loops without s ignificant dilatation. 9 mm calcification redemonstrated left mid abdomen. No evidence for free intra peritoneal air. Impression: Gassy bowel low with overall nonobstructive bowel gas pattern. Consider an ileus or enteritis. 9 mm l eft renal calculus. No evidence for free air. Mild to moderate stool burden.
--- NOTE | 2022-10-13 13:49 | CT ---
EXAMINATION TYPE: CT abdomen pelvis wo con DATE OF EXAM: 10/13/2022 COMPARISON: 09/29/2022 HISTORY: Abdominal pain, jaundice CT DLP: 641.6 mGycm Examination of the solid and hollow viscera is limited given the lack of contrast. FINDINGS: LUNG BASES: No evidence for nodule. No evidence for infiltrate. There is evidence of cardiomegaly. LIVER/GB: There is evidence of cholelithiasis with gallbladder dilatation measuring 12 cm. There is d ilatation of the common bile duct measuring 1.9 cm. Several small calculi common bile duct distally. PANCREAS: There is atrophic change of the pancreas. Pancreatic duct appears to be dilated. Fullness o f the pancreatic head could reflect underlying mass. SPLEEN: No evidence for splenomegaly. No intrasplenic lesions seen. ADRENALS: No adrenal nodules identified. No evidence for thickening. KIDNEYS: No evidence for renal mass. Bilateral nonobstructing nephrolithiasis. No hydronephrosis. BOWEL: Appendix has a normal appearance. No evidence of bowel obstruction. No inflammatory process. Lymph nodes: No evidence for adenopathy greater than 1 cm. Abdominal aorta: Atheromatous changes seen. No evidence for aneurysm. Genital organs: No significant abnormality. Other: No significant abnormality. IMPRESSION: 1. Findings suspicious for mass of the pancreatic head resulting in common bile duct and gallbladder dilatation. Pancreatic ductal prominence is also noted. 2. Nonobstructing bilateral nephrolithiasis.
[2022-10-13 13:51] LABS: INR 1.2 (<1.2); Partial Thromboplastin Time 27.4 sec (22.0-30.0); Prothrombin Time 12.4 sec (9.0-12.0)
[2022-10-13 15:33] VITALS: TEMP 97.4
[2022-10-13] MEDS ORDERED: HYDROmorphone 0.5 MG/0.5 ML SYRINGE IVP STA (15:33)
[2022-10-13 16:06] VITALS: BP 107/64; PULSE 83
== END 2022-10-13 16:25 | disposition other institution (70) ==
LOC: EC 11:11
DX: K86.9 Disease of pancreas, unspecified (principal); I10 Essential (primary) hypertension; I48.91 Unspecified atrial fibrillation; E11.9 Type 2 diabetes mellitus without complications; E78.5 Hyperlipidemia, unspecified; Z79.4 Long term (current) use of insulin; Z79.899 Other long term (current) drug therapy; Z87.891 Personal history of nicotine dependence
CPT/HCPCS: 36415; 93005; 80053; 82150; 83690; 85025; 85610; 85730; 74018; 74176; 99285; 96374; 96375 ×2; J2405; C9113; J1170

== ENCOUNTER 2022-10-20 12:22 | Inpatient (IN) | payer MEDICARE, OTHER ==
[2022-10-20] MEDS ORDERED: SODIUM CHLORIDE 0.9% 500 ML 500 ML IV STA (12:42)
[2022-10-20] MEDS ORDERED: HYDROmorphone 0.5 MG/0.5 ML SYRINGE IVP STA ×2 (12:43→16:06)
--- NOTE | 2022-10-20 12:51 | ED ---
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 Patient states she supposed to have follow-up up here with oncology. Patient states he couldn't stand the pain anymore the pain was increasing the right upper quadrant and epigastric region he also is extremely nauseated. Patient states currently the pain is there is not nauseous. Patient denies chest pain difficulty breathing or shortness of breath. Patient denies any actual vomiting. Patient denies any diarrhea. Patient denies lightheadedness or dizziness. Patient denies any recent fever chills. Patient states he is back because the pain is worse. - Related Data Home Medications Medication Instructions Recorded Confirmed Apixaban [Eliquis] 5 mg PO BID 03/20/18 10/20/22 Cyanocobalamin (Vitamin B-12) 1,000 mcg PO DAILY 03/20/18 10/20/22 [Vitamin B-12] Cyclobenzaprine [Flexeril] 10 mg PO HS PRN 03/20/18 10/20/22 Isosorbide Mononitrate ER [Imdur] 30 mg PO DAILY 03/20/18 10/20/22 Krill Oil 1,500 mg PO DAILY 03/20/18 10/20/22 Nitroglycerin Sl Tabs [Nitrostat] 0.4 mg SUBLINGUAL Q5M PRN 03/20/18 10/20/22 Pravastatin Sodium [Pravachol] 40 mg PO HS 12/13/19 10/20/22 allopurinoL [Zyloprim] 100 mg PO DAILY 12/13/19 10/20/22 Cholecalciferol [Vitamin D3 (25 50 mcg PO DAILY 10/13/22 10/20/22 Mcg = 1000 Iu)] Insulin Degludec [Tresiba 20 units SQ DAILY 10/13/22 10/20/22 Flextouch U-100 Pen] Metoprolol Tartrate [Lopressor] 50 mg PO HS 10/13/22 10/20/22 Metoprolol Tartrate [Lopressor] 100 mg PO DAILY 10/13/22 10/20/22 Furosemide [Lasix] 20 mg PO DAILY 10/20/22 10/20/22 Allergies Allergy/AdvReac Type Severity Reaction Status Date / Time morphine Allergy Swelling Verified 10/20/22 14:00 Review of Systems ROS Statement: Those systems with pertinent positive or pertinent negative responses have been documented in the HPI. ROS Other: All systems not noted in ROS Statement are negative. Past Medical History Past Medical History: Atrial Fibrillation, Chest Pain / Angina, Diabetes Mellitus, Hyperlipidemia, Hypertension, Musculoskeletal Disorder, Osteoarthritis (OA) Additional Past Medical History / Comment(s): BACK PAIN R/T OLD INJURY. EDEMA FEET/ANKLES. kidney stones, pancreatic tumor History of Any Multi-Drug Resistant Organisms: None Reported Past Surgical History: Back Surgery, Heart Catheterization, Heart Catheterization With Stent, Orthopedic Surgery Additional Past Surgical History / Comment(s): R Knee scope; Colonoscopy; Deviated Septum Repair. BACK SURG.X2 PTCA W/ STENTS X2. CARDIOVERSION 03/28/18. Past Anesthesia/Blood Transfusion Reactions: No Reported Reaction Date of Last Stent Placement:: 1997 Past Psychological History: No Psychological Hx Reported Smoking Status: Former smoker Past Alcohol Use History: None Reported Past Drug Use History: None Reported - Past Family History Mother Family Medical History: No Reported History Additional Family Medical History / Comment(s): Mother in her 80s from coronary artery disease. Father Additional Family Medical History / Comment(s): Father from coronary artery disease. Sister(s) Additional Family Medical History / Comment(s): Patient has 3 sisters one past from CVA. One has coronary artery disease with stent in 1 has no major medical problems. Patient is not having any children. Patient does not have any brothers. General Exam - General Exam Comments Initial Comments: GENERAL: Patient is well-developed and well-nourished. Patient is nontoxic and well- hydrated and is in mild distress. ENT: Neck is soft and supple. No significant lymphadenopathy is noted. Oropharynx is clear. Moist mucous membranes. Neck has full range of motion without eliciting any pain. EYES: Patient has sclera icterus. This is my normal physical exam. This is a test of creating a macro.nicteric and conjunctiva were pink and moist. Extraocular movements were intact and pupils were equal round and reactive to light. Eyelids were unremarkable. PULMONARY: Unlabored respirations. Good breath sounds bilaterally. No audible rales rho nchi or wheezing was noted. CARDIOVASCULAR: Patient has an irregularly irregular rate and rhythm ABDOMEN: Patient has right upper quadrant and epigastric tenderness but is quite significant SKIN: Patient is visibly jaundice NEUROLOGIC: Patient is alert and oriented x3. Cranial nerves II through XII are grossly intact. Motor and sensory are also intact. Normal speech, volume and content. Symmetrical smile. MUSCULOSKELETAL: Normal extremities with adequate strength and full range of motion. Patient has 2+ edema which she states is pretty baseline he indicates it may be a little worse than normal LYMPHATICS: No significant lymphadenopathy is noted PSYCHIATRIC: Normal psychiatric evaluation. Limitations: no limitations Course Vital Signs 10/20/22 12:26 Temperature 97.0 F L Pulse Rate 114 H Respiratory 18 Rate Blood Pressure 143/119 O2 Sat by Pulse 97 Oximetry Medical Decision Making - Medical Decision Making EKG was interpreted by me EKG shows atrial fibrillation at 97 bpm [place] interval is 113 QRS is 360 QTC is 422. Patient's EKG shows no ST segment elevation or depression however there is occasional PVC. Was pt. sent in by a medical professional or institution? @ -No Did you speak to anyone other than the patient for history? @ -No Did you review nursing and triage notes? @ -I agree with the nursing and triage notes Were old charts reviewed? @ -I reviewed patient's old labs for the last month. Differential Diagnosis? @ -Differential Abdominal Pain Men: Appendicitis, cholecystitis, diverticulosis, ischemic bowel, pancreatitis, hepatitis, UTI, gastroenteritis, AAA, incarcerated hernia, bowel obstruction, constipation, inflammatory bowel, hepatitis, peptic ulcer disease, splenic infarction, perforated viscus, testicular torsion, this is not meant to be an all-inclusive list EKG interpreted by me (3pts min.)? @ -As above X-rays interpreted by me (1pt min.)? @ -None CT interpreted by me (1pt min.)? @ -Known U/S interpreted by me (1pt. min.)? @ -None What testing was considered but not performed? (CT, X-rays, U/S, labs)? Why? @ -I did consider a CAT scan but after speaking with oncology they will perform get significant edema necessary. What meds were considered but not given? Why? @ -None Did you discuss the management of the patient with other professionals? @ -I discussed the case with oncology as well as Dr. gardiner Did you reconcile home meds? @ -None Was smoking cessation discussed for >3mins.? @ -None Was critical care preformed (if so, how long)? @ -None Were there social determinants of health that impacted care today? How? (Homelessness, low income, unemployed, alcoholism, drug addiction, transp ortation, low edu. Level, literacy, decrease access to med. care, care home, rehab)? @ -None Was there de-escalation of care discussed even if they declined? (Discuss DNR or withdrawal of care, Hospice)? @ -No What co-morbidities impacted this encounter? (DM, HTN, Smoking, COPD, CAD, Cancer, CVA, Hep., AIDS, mental health diagnosis, sleep apnea, morbid obesity)? @ -Cancer unknown type however it appears to be increasing his pain and that is the reason for his visit. Was patient admitted / discharged? @ -Admitted. Patient came in and was given Dilaudid to help his pain. I spoke with oncology they wanted the patient admitted for pain control and will get all the information from Rodrigo Schrader and evaluate the patient. I spoke with Dr. gardiner he was in agreement with this. I wrote admitting orders. Undiagnosed new problem with uncertain prognosis? @ -No Drug Therapy requiring intensive monitoring for toxicity (Heparin, Nitro, Insulin, Cardizem)? @ -No Were any procedures done? @ -No Diagnosis/symptom? 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 @ -Chronic Uncomplicated (without systemic symptoms) or Complicated (systemic symptoms)? @ -Complicated Side effects of treatment? @ -No Exacerbation, Progression, or Severe Exacerbation] @ -Progression Poses a threat to life or bodily function? @ -No Diagnosis/symptom? @ -Jaundice Acute, or Chronic, or Acute on Chronic? @ -Acute on chronic Uncomplicated (without systemic symptoms) or Complicated (systemic symptoms)? @ -Uncomplicated Side effects of treatment? @ -None Exacerbation, Progression, or Severe Exacerbation] @ -None Poses a threat to life or bodily function? @ -None Diagnosis/symptom? @ -Abdominal pain Acute, or Chronic, or Acute on Chronic? @ -Acute on chronic Uncomplicated (without systemic symptoms) or Complicated (systemic symptoms)? @ -Uncomplicated Side effects of treatment? @ -None Exacerbation, Progression, or Severe Exacerbation] @ -No Poses a threat to life or bodily function? @ -No - Lab Data Result diagrams: 10/20/22 12:48 10/20/22 12:48 Lab Results 10/20/22 10/20/22 10/20/22 Range/Units 12:48 12:48 12:48 WBC 5.3 (3.8-10.6) k/uL RBC 3.69 L (4.30-5.90) m/uL Hgb 13.0 (13.0-17.5) gm/dL Hct 39.7 (39.0-53.0) % MCV 107.5 H (80.0-100.0) fL MCH 35.1 H (25.0-35.0) pg MCHC 32.7 (31.0-37.0) g/dL RDW 13.2 (11.5-15.5) % Plt Count 138 L (150-450) k/uL MPV 10.0 Neutrophils % 82 % Lymphocytes % 11 % Monocytes % 4 % Eosinophils % 2 % Basophils % 1 % Neutrophils # 4.3 (1.3-7.7) k/uL Lymphocytes # 0.6 L (1.0-4.8) k/uL Monocytes # 0.2 (0-1.0) k/uL Eosinophils # 0.1 (0-0.7) k/uL Basophils # 0.0 (0-0.2) k/uL Macrocytosis Moderate PT 13.1 H (9.0-12.0) sec INR 1.3 H (<1.2) APTT 28.4 (22.0-30.0) sec Sodium 138 (137-145) mmol/L Potassium 4.0 (3.5-5.1) mmol/L Chloride 108 H (98-107) mmol/L Carbon Dioxide 24 (22-30) mmol/L Anion Gap 6 mmol/L BUN 25 H (9-20) mg/dL Creatinine 1.25 (0.66-1.25) mg/dL Est GFR (CKD-EPI)AfAm 69 (>60 ml/min/1.73 sqM) Est GFR (CKD-EPI)NonAf 60 (>60 ml/min/1.73 sqM) Glucose 161 H (74-99) mg/dL Plasma Lactic Acid Magen (0.7-2.0) mmol/L Calcium 8.1 L (8.4-10.2) mg/dL Total Bilirubin 6.4 H (0.2-1.3) mg/dL AST 290 H (17-59) U/L ALT 143 H (4-49) U/L Alkaline Phosphatase 429 H (38-126) U/L Total Protein 6.3 (6.3-8.2) g/dL Albumin 3.0 L (3.5-5.0) g/dL Amylase <30 L (30-110) U/L Lipase 74 (23-300) U/L 10/20/22 Range/Units 12:48 WBC (3.8-10.6) k/uL RBC (4.30-5.90) m/uL Hgb (13.0-17.5) gm/dL Hct (39.0-53.0) % MCV (80.0-100.0) fL MCH (25.0-35.0) pg MCHC (31.0-37.0) g/dL RDW (11.5-15.5) % Plt Count (150-450) k/uL MPV Neutrophils % % Lymphocytes % % Monocytes % % Eosinophils % % Basophils % % Neutrophils # (1.3-7.7) k/uL Lymphocytes # (1.0-4.8) k/uL Monocytes # (0-1.0) k/uL Eosinophils # (0-0.7) k/uL Basophils # (0-0.2) k/uL Macrocytosis PT (9.0-12.0) sec INR (<1.2) APTT (22.0-30.0) sec Sodium (137-145) mmol/L Potassium (3.5-5.1) mmol/L Chloride (98-107) mmol/L Carbon Dioxide (22-30) mmol/L Anion Gap mmol/L BUN (9-20) mg/dL Creatinine (0.66-1.25) mg/dL Est GFR (CKD-EPI)AfAm (>60 ml/min/1.73 sqM) Est GFR (CKD-EPI)NonAf (>60 ml/min/1.73 sqM) Glucose (74-99) mg/dL Plasma Lactic Acid Magen 1.0 (0.7-2.0) mmol/L Calcium (8.4-10.2) mg/dL Total Bilirubin (0.2-1.3) mg/dL AST (17-59) U/L ALT (4-49) U/L Alkaline Phosphatase (38-126) U/L Total Protein (6.3-8.2) g/dL Albumin (3.5-5.0) g/dL Amylase (30-110) U/L Lipase (23-300) U/L Disposition Clinical Impression: Intractable abdominal pain, 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
[2022-10-20 13:04] LABS: Basophils % (A) 1 %; Eosinophils # (A) 0.1 k/uL (0-0.7); Eosinophils % (A) 2 %; HCT 39.7 % (39.0-53.0); Lymphocytes # (A) 0.6 k/uL (1.0-4.8); Lymphocytes % (A) 11 %; MCH 35.1 pg (25.0-35.0); MCHC 32.7 g/dL (31.0-37.0); MCV 107.5 fL (80.0-100.0); Macrocytosis Moderate; Monocytes # (A) 0.2 k/uL (0-1.0); Monocytes % (A) 4 %; Neutrophils # (A) 4.3 k/uL (1.3-7.7); Neutrophils % (A) 82 %; Platelet Count 138 k/uL (150-450); RBC 3.69 m/uL (4.30-5.90); RDW 13.2 % (11.5-15.5); WBC 5.3 k/uL (3.8-10.6)
[2022-10-20 13:22] LABS: ALT 143 U/L (4-49); AST 290 U/L (17-59); African American GFR (CKD) 69 (>60 ml/min/1.73 sqM); Alkaline Phosphatase 429 U/L (38-126); Amylase <30 U/L (30-110); Anion Gap 6 mmol/L; Blood Urea Nitrogen 25 mg/dL (9-20); Calcium 8.1 mg/dL (8.4-10.2); Carbon Dioxide 24 mmol/L (22-30); Chloride 108 mmol/L (98-107); Glucose 161 mg/dL (74-99); Lipase 74 U/L (23-300); Non-African American GFR(CKD) 60 (>60 ml/min/1.73 sqM); Sodium 138 mmol/L (137-145); Total Bilirubin 6.4 mg/dL (0.2-1.3); Total Protein 6.3 g/dL (6.3-8.2)
[2022-10-20 13:23] LABS: INR 1.3 (<1.2); Partial Thromboplastin Time 28.4 sec (22.0-30.0); Prothrombin Time 13.1 sec (9.0-12.0)
[2022-10-20] MEDS ORDERED: SODIUM CHLORIDE 0.9% 1,000 ML IV ONE (16:46)
[2022-10-20] MEDS ORDERED: HYDROmorphone 0.5 MG/0.5 ML SYRINGE IVP PRN (16:47)
[2022-10-20] MEDS ORDERED: MELATONIN 3 MG TABLET PO PRN (18:57)
[2022-10-20] MEDS ORDERED: ACETAMINOPHEN TAB 325 MG TAB PO PRN (18:57)
[2022-10-20] MEDS ORDERED: ALPRAZolam 0.25 MG TAB PO PRN (18:57)
[2022-10-20] MEDS ORDERED: NALOXONE 0.4 MG/ML 1 ML VIAL IV PRN (18:57)
[2022-10-20] MEDS ORDERED: bisacodyL 5 MG TABLET.DR PO PRN (18:57)
[2022-10-20] MEDS ORDERED: ONDANSETRON 4 MG/2 ML VIAL IVP PRN (18:57)
--- NOTE | 2022-10-20 19:17 | P.HPIM ---
History of Present Illness H&P Date: 10/20/22 Patient is a 67-year-old male with a history of recently discovered common bile duct obstruction requiring stent placement at [facility], atrial fibrillation, diabetes mellitus type 2, dyslipidemia, and hypertension as well as multiple other comorbid conditions who presented to the ER with complaints of abdominal pain. Patient was recently seen here in the emergency department on 10/13 and was found to have a total bilirubin of greater than 20. He also underwent a CT abdomen and pelvis which was suspicious for mass at the pancreatic head resulting in common bile duct and gallbladder distention with pancreatic ductal prominence. He subsequently went [facility] where he reports he had an ERCP done with stent placement as well as biopsy. He is currently awaiting results. They did discuss his most likely cancerous. On arrival here he is slightly tachycardic with a pulse of 114. Laboratory analysis was remarkable for a platelet count of 138, INR 1.3, BUN 25, bilirubin 6.4, AST 290, ALT 143, alkaline phosphatase of 429. Case was discussed with oncology who recommended patient be monitored in the hospital for pain control and initiation of workup. Patient seen and examined at bedside. He complains of abdominal pain that has been worsening since discharge from [facility]. He states he was discharged home without any pain medications. Initially after stent placement he had some improvement in his abdominal pain but has since come back and has been slowly increasing in nature. He reports the hospital stay as listed above at [facility]. He reports that since January he has lost approximately 100 pounds. He was exceedingly jaundice approximately one week ago but that has been slowly improving. His urine has been late February and is returning to normal color. He continues to have some intermittent nausea and vomiting. It is mostly when he drinks too much water. He has intermittent chest discomfort and shortness of breath that is unassociated with his A. fib. He has chronic back pain. He denies any changes in his stool. He reports that he has had lowered from the edema for the last 6 weeks. No other complaints currently. He reports he was scheduled to have an AICD placed later next month, he is unsure of the indication and states they told him it would help with his heart ever were to stop. He also reports that he is due to have cataract surgery. He reports that he has a chronic left I did a renal stone which is due to be taken out by Dr. Lopez. Pertinent positives and negatives as discussed in HPI, a complete review of systems was performed and all other systems are negative. Vital signs reviewed General: nontoxic, no distress, appears at stated age Derm: warm, dry Head: atraumatic, normocephalic, symmetric Eyes: EOMI, no lid lag, anicteric sclera, pupils equal round reactive to light ENT: Nose and ears atraumatic, no thrush, no pharyngeal erythema Neck: No thyromegaly, no cervical lymphadenopathy, trachea midline, supple Mouth: no lip lesion, mucus membranes moist Cardiovascular: S1S2 reg, no murmur, positive posterior tibial pulse bilateral, no edema, capillary refill less than 2 seconds Lungs: clear to auscultation bilateral, no rhonchi, no rales, no wheeze, no accessory muscle use Abdominal: soft, nontender to palpation, no guarding, no appreciable organomegaly, normal bowel sounds Ext: no gross muscle atrophy, muscle strength 5 out of 5 in all 4 extremities, no contractures Neuro: CN II-XII grossly intact, light touch intact all 4 extremities, finger to nose within normal limits, Psych: Alert, oriented, appropriate affect Assessment/Plan: Intractable abdominal pain likely secondary to malignancy Obstructive jaundice Unintentional weight loss Thrombocytopenia -Await records from [facility] -Await oncology evaluation 9-add Dilaudid for pain control, patient was an ALLERGY to morphine of swelling -Zofran for antiemetics - stop IVF -Further recommendations to follow Diabetes mellitus type 2 -Transition from Tresiba to levemir -Sliding-scale insulin -Follow blood sugars Atrial fibrillation with controlled ventricular response Dyslipidemia Hypertension Suspect cardiomyopathy The patient is admitted with an anticipated greater than 2 midnight stay for evaluation of intractable abdominal pain. Surrogate decision-maker: Sister Halle CODE STATUS: Full DVT prophylaxis: Lovenox Discussed with: And nursing, ED physician Anticipated discharge date: Pending clinical course Anticipated discharge place: Pending clinical course A total of 65 minutes was spent on the care of this complex patient more than 50% of the time was spent in counseling and care coordination. Past Medical History Past Medical History: Atrial Fibrillation, Chest Pain / Angina, Diabetes Mellitus, Hyperlipidemia, Hypertension, Musculoskeletal Disorder, Osteoarthritis (OA) Additional Past Medical History / Comment(s): BACK PAIN R/T OLD INJURY. EDEMA FEET/ANKLES. kidney stones, Recent diagnosis of Pancreatic tumor. Patient has not had follow-up with Oncologist yet and was readmitted for increased pain. History of Any Multi-Drug Resistant Organisms: None Reported Past Surgical History: Back Surgery, Heart Catheterization, Heart Catheterization With Stent, Orthopedic Surgery Additional Past Surgical History / Comment(s): R Knee scope; Colonoscopy; Deviated Septum Repair. BACK SURG.X2 PTCA W/ STENTS X2. CARDIOVERSION 03/28/18. ERCP last week with Dr. Morfin out of [facility] with stent placement. Past Anesthesia/Blood Transfusion Reactions: No Reported Reaction Date of Last Stent Placement:: 1997 Past Psychological History: No Psychological Hx Reported Smoking Status: Former smoker Past Alcohol Use History: None Reported Additional Past Alcohol Use History / Comment(s): Patient was a smoker one pack per day for 30 years and quit 30 years ago. He denies any marijuana, street drug or alcohol use. Patient lives alone. Past Drug Use History: None Reported - Past Family History Mother Family Medical History: Dementia, Memory Impairment Additional Family Medical History / Comment(s): Mother in her 80s r/t advanced dementia. Father Family Medical History: Myocardial Infarction ([place]) Additional Family Medical History / Comment(s): Father from coronary artery disease. Sister(s) Additional Family Medical History / Comment(s): Patient has 3 sisters one past from CVA. One has coronary artery disease with stent in 1 has no major medical problems. Patient is not having any children. Patient does not have any brothers. Medications and Allergies Home Medications Medication Instructions Recorded Confirmed Type Apixaban [Eliquis] 5 mg PO BID 03/20/18 10/20/22 History Cyanocobalamin (Vitamin B-12) 1,000 mcg PO DAILY 03/20/18 10/20/22 History [Vitamin B-12] Cyclobenzaprine [Flexeril] 10 mg PO HS PRN 03/20/18 10/20/22 History Isosorbide Mononitrate ER [Imdur] 30 mg PO DAILY 03/20/18 10/20/22 History Krill Oil 1,500 mg PO DAILY 03/20/18 10/20/22 History Nitroglycerin Sl Tabs [Nitrostat] 0.4 mg SUBLINGUAL Q5M PRN 03/20/18 10/20/22 History Pravastatin Sodium [Pravachol] 40 mg PO HS 12/13/19 10/20/22 History allopurinoL [Zyloprim] 100 mg PO DAILY 12/13/19 10/20/22 History Cholecalciferol [Vitamin D3 (25 50 mcg PO DAILY 10/13/22 10/20/22 History Mcg = 1000 Iu)] Insulin Degludec [Tresiba 20 units SQ DAILY 10/13/22 10/20/22 History Flextouch U-100 Pen] Metoprolol Tartrate [Lopressor] 50 mg PO HS 10/13/22 10/20/22 History Metoprolol Tartrate [Lopressor] 100 mg PO DAILY 10/13/22 10/20/22 History Furosemide [Lasix] 20 mg PO DAILY 10/20/22 10/20/22 History Allergies Allergy/AdvReac Type Severity Reaction Status Date / Time morphine Allergy Swelling Verified 10/20/22 14:00 Physical Exam Osteopathic Statement: *. No significant issues noted on an osteopathic structural exam other than those noted in the History and Physical/Consult. Vitals: Vital Signs Temp Pulse Resp BP Pulse Ox 10/20/22 18:00 80 18 109/70 98 10/20/22 17:00 78 18 102/60 99 10/20/22 12:26 97.0 F L 114 H 18 143/119 97 Intake and Output 10/20/22 10/20/22 10/20/22 06:59 14:59 22:59 Other: Weight 88.451 kg 88.451 kg Results CBC & Chem 7: 10/20/22 12:48 10/20/22 12:48 Labs: Abnormal Lab Results - Last 24 Hours (Table) 10/20/22 10/20/22 10/20/22 Range/Units 12:48 12:48 12:48 RBC 3.69 L (4.30-5.90) m/uL MCV 107.5 H (80.0-100.0) fL MCH 35.1 H (25.0-35.0) pg Plt Count 138 L (150-450) k/uL Lymphocytes # 0.6 L (1.0-4.8) k/uL PT 13.1 H (9.0-12.0) sec INR 1.3 H (<1.2) Chloride 108 H (98-107) mmol/L BUN 25 H (9-20) mg/dL Glucose 161 H (74-99) mg/dL Calcium 8.1 L (8.4-10.2) mg/dL Total Bilirubin 6.4 H (0.2-1.3) mg/dL AST 290 H (17-59) U/L ALT 143 H (4-49) U/L Alkaline Phosphatase 429 H (38-126) U/L Albumin 3.0 L (3.5-5.0) g/dL Amylase <30 L (30-110) U/L
[2022-10-20] MEDS ORDERED: CYCLOBENZAPRINE 10 MG TAB PO PRN (19:18)
[2022-10-20] MEDS ORDERED: NITROGLYCERIN SL TABS 0.4 MG TAB SUBLINGUAL PRN (19:18)
[2022-10-20] MEDS ORDERED: DEXTROSE 50% SYRINGE 50 ML IVP PRN ×2 (19:19)
[2022-10-20 20:43] LABS: Glucose,Whole Blood 113 mg/dL (70-110)
[2022-10-20] MEDS: INSULIN ASPART (NovoLOG) 100 UNIT/ML VIAL SQ SCH (21:07)
[2022-10-20] MEDS: METOPROLOL TARTRATE 50 MG TAB PO SCH (21:08)
[2022-10-20] MEDS: APIXABAN 5 MG TAB PO SCH (21:08)
[2022-10-20] MEDS: PRAVASTATIN SODIUM 40 MG TAB PO SCH (21:08)
[2022-10-20] MEDS: HYDROmorphone 1 MG/ML 1 ML SYRINGE IVP PRN (21:11)
[2022-10-21] MEDS: HYDROmorphone 1 MG/ML 1 ML SYRINGE IVP PRN ×5 (02:24→20:00)
[2022-10-21 07:26] LABS: Glucose,Whole Blood 150 mg/dL (70-110)
[2022-10-21] MEDS: INSULIN ASPART (NovoLOG) 100 UNIT/ML VIAL SQ SCH ×4 (07:51→20:38)
[2022-10-21] MEDS ORDERED: INSULIN DETEMIR (LEVEMIR) 100 UNIT/ML SYR SQ SCH (09:00)
[2022-10-21] MEDS ORDERED: NON FORMULARY DRUG (Krill Oil [Krill Oil] 500 MG Capsule) PO SCH (09:00)
[2022-10-21] MEDS ORDERED: ENOXAPARIN 40 MG/0.4 ML SYRINGE SQ SCH (09:00)
[2022-10-21] MEDS: CHOLECALCIFEROL 25 MCG (1000 IU) TABLET PO SCH (09:02)
[2022-10-21] MEDS: CYANOCOBALAMIN 500 MCG TAB PO SCH (09:03)
[2022-10-21] MEDS: METOPROLOL TARTRATE 50 MG TAB PO SCH ×2 (09:03→19:59)
[2022-10-21] MEDS: APIXABAN 5 MG TAB PO SCH ×2 (09:03→19:59)
[2022-10-21] MEDS: allopurinoL 100 MG TAB PO SCH (09:03)
[2022-10-21] MEDS: ISOSORBIDE MONONITRATE ER 30 MG TAB.ER.24H PO SCH (09:03)
[2022-10-21] MEDS: FUROSEMIDE 20 MG TAB PO SCH (09:03)
[2022-10-21] MEDS: PRAVASTATIN SODIUM 40 MG TAB PO SCH (09:04)
[2022-10-21 10:51] LABS: HCT 39.5 % (39.6-50.0); HGB 12.7 g/dL (13.0-17.0); MCH 34.2 pg (27.0-32.0); MCHC 32.2 g/dL (32.0-37.0); MCV 106.5 fL (80.0-97.0); Mean Platelet Volume 11.8 fL (9.5-12.2); NRBC Per 100 WBC 0 /100 WBCS (0.0-0.0); Platelet Count 150 X 10*3/uL (140-440); RBC 3.71 X 10*6/uL (4.40-5.60); WBC 5.22 X 10*3/uL (4.50-10.00)
[2022-10-21 11:03] LABS: African American GFR (CKD) 65.4 (60.0-200.0); Albumin 3.3 g/dL (3.8-4.9); Albumin/Globulin Ratio 1.1 (1.60-3.17); Anion Gap 8.7 mmol/L (10.00-18.00); BUN/Creat Ratio 19.23 Ratio (12.00-20.00); Calcium 9.3 mg/dL (8.7-10.3); Carbon Dioxide 26.3 mmol/L (20.0-27.5); Non-African American GFR(CKD) 56.5 (60.0-200.0); Potassium 4.5 mmol/L (3.5-5.5); Total Bilirubin 6.4 mg/dL (0.30-1.20); Total Protein 6.3 g/dL (6.2-8.2)
[2022-10-21 11:09] LABS: Glucose,Whole Blood 234 mg/dL (70-110)
[2022-10-21 11:59] VITALS: BMI 25.7
[2022-10-21] MEDS ORDERED: HYDROcodone/APAP 10-325MG 1 EACH TAB PO PRN (13:17)
[2022-10-21 17:12] LABS: Glucose,Whole Blood 61 mg/dL (70-110)
[2022-10-21 17:30] LABS: Glucose,Whole Blood 63 mg/dL (70-110)
[2022-10-21 17:44] LABS: Glucose,Whole Blood 70 mg/dL (70-110)
[2022-10-21 18:02] LABS: Glucose,Whole Blood 63 mg/dL (70-110)
--- NOTE | 2022-10-21 18:27 | P.CONS ---
History of Present Illness - Reason for Consult Consult date: 10/21/22 biliary obstruction Requesting physician: Luis Asher - Chief Complaint abd pain - History of Present Illness Patient is a 67-year-old male with a history of recently discovered common bile duct obstruction requiring stent placement at [facility], atrial fibrillation, diabetes mellitus type 2, dyslipidemia, and hypertension who presented to the ER with complaints of abdominal pain. Pt also reports hx of ETOH abuse but quit 15 years ago, and was a previous smoker and quit 30 years ago. Patient was recently seen here in the emergency department on 10/13 and was found to have a total bilirubin of greater than 20. He also underwent a CT abdo men and pelvis which was suspicious for mass at the pancreatic head resulting in common bile duct and gallbladder dilatation with pancreatic ductal prominence. He subsequently went [facility] where he reports he had an ERCP done which showed biliary stricture and ulcerations within ampulla, at which time time a biliary stent placed. 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 Today hgb 12.7, MCV 106.5, moderate macrocytosis present, PLT 150. Bili 6.40, AST 238, ALT 161, alkaline phosphatase of 499, and INR 1.3. He reports that the abdominal pain that has been worsening since discharge from [facility]. He states he was discharged home without any pain medications. Initially after stent placement he had some improvement in his abdominal pain but has since come back and has been slowly increasing in nature. He reports that since January he has lost approximately 100 pounds, which has worsened since May. He reports his jaundice has been improving over the last 1 week. He continues to have some intermittent nausea and vomiting, which is worsened when he drinks too much water. He reports having intermittent chest discomfort and shortness of breath, but no reported SOB/CP at this time. He reported sharp mid back pain today while brushing his teeth. He denies blood in stool, melena, diarrhea, and constipation. He also reports that he has had lower extremity edema/discoloration for approx the last 6 weeks. No other complaints at this time. Review of Systems 10 point ROS is negative except as as stated in HPI Past Medical History Past Medical History: Atrial Fibrillation, Chest Pain / Angina, Diabetes Mellitus, Hyperlipidemia, Hypertension, Musculoskeletal Disorder, Osteoarthritis (OA) Additional Past Medical History / Comment(s): BACK PAIN R/T OLD INJURY. EDEMA FEET/ANKLES. kidney stones, Recent diagnosis of Pancreatic tumor. Patient has not had follow-up with Oncologist yet and was readmitted for increased pain. History of Any Multi-Drug Resistant Organisms: None Reported Past Surgical History: Back Surgery, Heart Catheterization, Heart Catheterization With Stent, Orthopedic Surgery Additional Past Surgical History / Comment(s): R Knee scope; Colonoscopy; Deviated Septum Repair. BACK SURG.X2 PTCA W/ STENTS X2. CARDIOVERSION 03/28/18. ERCP last week with Dr. Morfin out of [facility] with stent placement. Past Anesthesia/Blood Transfusion Reactions: No Reported Reaction Date of Last Stent Placement:: 1997 Past Psychological History: No Psychological Hx Reported Smoking Status: Former smoker Past Alcohol Use History: None Reported Additional Past Alcohol Use History / Comment(s): Patient was a smoker one pack per day for 30 years and quit 30 years ago. He denies any marijuana, street drug or alcohol use. Patient lives alone. Past Drug Use History: None Reported - Past Family History Mother Family Medical History: Dementia, Memory Impairment Additional Family Medical History / Comment(s): Mother in her 80s r/t advanced dementia. Father Family Medical History: Myocardial Infarction ([place]) Additional Family Medical History / Comment(s): Father from coronary artery disease. Sister(s) Additional Family Medical History / Comment(s): Patient has 3 sisters one past from CVA. One has coronary artery disease with stent in 1 has no major medical problems. Patient is not having any children. Patient does not have any brothers. Medications and Allergies Home Medications Medication Instructions Recorded Confirmed Type Apixaban [Eliquis] 5 mg PO BID 03/20/18 10/20/22 History Cyanocobalamin (Vitamin B-12) 1,000 mcg PO DAILY 03/20/18 10/20/22 History [Vitamin B-12] Cyclobenzaprine [Flexeril] 10 mg PO HS PRN 03/20/18 10/20/22 History Isosorbide Mononitrate ER [Imdur] 30 mg PO DAILY 03/20/18 10/20/22 History Krill Oil 1,500 mg PO DAILY 03/20/18 10/20/22 History Nitroglycerin Sl Tabs [Nitrostat] 0.4 mg SUBLINGUAL Q5M PRN 03/20/18 10/20/22 History Pravastatin Sodium [Pravachol] 40 mg PO HS 12/13/19 10/20/22 History allopurinoL [Zyloprim] 100 mg PO DAILY 12/13/19 10/20/22 History Cholecalciferol [Vitamin D3 (25 50 mcg PO DAILY 10/13/22 10/20/22 History Mcg = 1000 Iu)] Insulin Degludec [Tresiba 20 units SQ DAILY 10/13/22 10/20/22 History Flextouch U-100 Pen] Metoprolol Tartrate [Lopressor] 50 mg PO HS 10/13/22 10/20/22 History Metoprolol Tartrate [Lopressor] 100 mg PO DAILY 10/13/22 10/20/22 History Furosemide [Lasix] 20 mg PO DAILY 10/20/22 10/20/22 History Allergies Allergy/AdvReac Type Severity Reaction Status Date / Time morphine Allergy Swelling Verified 10/20/22 14:00 Physical Exam Vitals: Vital Signs Temp Pulse Pulse Pulse Resp BP BP 10/21/22 07:26 97.5 F L 102 H 18 10/21/22 02:00 97.8 F 110 H 20 106/80 10/20/22 19:16 98.8 F 105 H 20 117/77 10/20/22 18:00 80 18 109/70 10/20/22 17:00 78 18 102/60 BP Pulse Ox 10/21/22 07:26 112/74 98 10/21/22 02:00 98 10/20/22 19:16 98 10/20/22 18:00 98 10/20/22 17:00 99 Intake and Output 10/20/22 10/21/22 10/21/22 22:59 06:59 14:59 Intake Total 600 Balance 600 Intake: Oral 600 Other: Voiding Method Toilet Toilet # Voids 1 # Bowel Movements 1 Weight 88.451 kg 88.451 kg - Constitutional General appearance: average body habitus, no acute distress - EENT Eyes: EOMI, scleral icterus ENT: hearing grossly normal - Neck Neck: no lymphadenopathy - Respiratory Respiratory: bilateral: CTA - Cardiovascular Rhythm: regular Heart sounds: normal: S1, S2 Abnormal Heart Sounds: no systolic murmur, no diastolic murmur, no rub, no S3 Gallop, no S4 Gallop, no click, no other - Gastrointestinal General gastrointestinal: soft, no tenderness - Integumentary reddened/purplish discoloration to distal bilateral lower extremities, with edema present. Scratching to left knee present, no sign of inection noted Integumentary: jaundiced - Neurologic grossly Neurologic: CNII-XII intact - Musculoskeletal Musculoskeletal: strength equal bilaterally - Psychiatric Psychiatric: A&O x's 3, appropriate affect, intact judgment & insight Results CBC & Chem 7: 10/21/22 07:15 10/21/22 07:15 Labs: Abnormal Lab Results - Last 24 Hours (Table) 10/20/22 10/20/22 10/20/22 Range/Units 12:48 12:48 12:48 RBC 3.69 L (4.30-5.90) m/uL Hgb (13.0-17.0) g/dL Hct (39.6-50.0) % MCV 107.5 H (80.0-100.0) fL MCH 35.1 H (25.0-35.0) pg Plt Count 138 L (150-450) k/uL Lymphocytes # 0.6 L (1.0-4.8) k/uL PT 13.1 H (9.0-12.0) sec INR 1.3 H (<1.2) Chloride 108 H (98-107) mmol/L Anion Gap (10.00-18.00) mmol/L BUN 25 H (9-20) mg/dL Est GFR (CKD-EPI)NonAf (60.0-200.0) Glucose 161 H (74-99) mg/dL POC Glucose (mg/dL) (70-110) mg/dL Hemoglobin A1c (0.0-6.0) % Calcium 8.1 L (8.4-10.2) mg/dL Total Bilirubin 6.4 H (0.2-1.3) mg/dL AST 290 H (17-59) U/L ALT 143 H (4-49) U/L Alkaline Phosphatase 429 H (38-126) U/L Albumin 3.0 L (3.5-5.0) g/dL Albumin/Globulin Ratio (1.60-3.17) g/dL Amylase <30 L (30-110) U/L 10/20/22 10/20/22 10/21/22 Range/Units 12:48 20:38 07:15 RBC 3.71 L (4.30-5.90) m/uL Hgb 12.7 L (13.0-17.0) g/dL Hct 39.5 L (39.6-50.0) % MCV 106.5 H (80.0-100.0) fL MCH 34.2 H (25.0-35.0) pg Plt Count (150-450) k/uL Lymphocytes # (1.0-4.8) k/uL PT (9.0-12.0) sec INR (<1.2) Chloride (98-107) mmol/L Anion Gap (10.00-18.00) mmol/L BUN (9-20) mg/dL Est GFR (CKD-EPI)NonAf (60.0-200.0) Glucose (74-99) mg/dL POC Glucose (mg/dL) 113 H (70-110) mg/dL Hemoglobin A1c 8.8 H (0.0-6.0) % Calcium (8.4-10.2) mg/dL Total Bilirubin (0.2-1.3) mg/dL AST (17-59) U/L ALT (4-49) U/L Alkaline Phosphatase (38-126) U/L Albumin (3.5-5.0) g/dL Albumin/Globulin Ratio (1.60-3.17) g/dL Amylase (30-110) U/L 10/21/22 10/21/22 10/21/22 Range/Units 07:15 07:24 11:08 RBC (4.30-5.90) m/uL Hgb (13.0-17.0) g/dL Hct (39.6-50.0) % MCV (80.0-100.0) fL MCH (25.0-35.0) pg Plt Count (150-450) k/uL Lymphocytes # (1.0-4.8) k/uL PT (9.0-12.0) sec INR (<1.2) Chloride (98-107) mmol/L Anion Gap 8.70 L (10.00-18.00) mmol/L BUN (9-20) mg/dL Est GFR (CKD-EPI)NonAf 56.5 L (60.0-200.0) Glucose 161 H (74-99) mg/dL POC Glucose (mg/dL) 150 H 234 H (70-110) mg/dL Hemoglobin A1c (0.0-6.0) % Calcium (8.4-10.2) mg/dL Total Bilirubin 6.40 H (0.2-1.3) mg/dL AST 238 H (17-59) U/L ALT 161 H (4-49) U/L Alkaline Phosphatase 499 H (38-126) U/L Albumin 3.3 L (3.5-5.0) g/dL Albumin/Globulin Ratio 1.10 L (1.60-3.17) g/dL Amylase (30-110) U/L Assessment and Plan (1) Biliary obstruction due to malignant neoplasm Current Visit: Yes Status: Acute Priority: High Code(s): K83.1 - OBSTRUCTION OF BILE DUCT; C80.1 - MALIGNANT (PRIMARY) NEOPLASM, UNSPECIFIED SNOMED Code(s): 872110649 (2) Intractable abdominal pain Current Visit: Yes Status: Acute Priority: High Code(s): R10.9 - UNSPECIFIED ABDOMINAL PAIN SNOMED Code(s): 01287528 (3) Jaundice Current Visit: Yes Status: Acute Priority: High Code(s): R17 - UNSPECIFIED JAUNDICE SNOMED Code(s): 31564313 (4) Pancreatic mass Current Visit: No Status: Acute Priority: High Code(s): K86.89 - OTHER SPECIFIED DISEASES OF PANCREAS SNOMED Code(s): 710561908 Plan: Today hgb 12.7, MCV 106.5, moderate macrocytosis present, PLT 150. Bili 6.40, AST 238, ALT 161, alkaline phosphatase of 499, and INR 1.3. Bilirubin has been trending down since 10/11/22, is currently at 6.40. 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 Will schedule f/u visit with Dr. Rosa in clinic after testing is complete to discuss and begin a treatment plan Spoke Dr. Vargas who plans on discharging pt tonight if she can get pain medications ordered for pain control until patient can have appropriate f/u Pt verbalized understanding and is agreeable with plan Dr attests: I have seen and examined patient, performed H&P, developed impres allegra and plan of care. Discussed with dictator. Agree with documentation, dictated as a scribe
[2022-10-21 18:32] LABS: Glucose,Whole Blood 115 mg/dL (70-110)
--- NOTE | 2022-10-21 19:14 | P.PN ---
Subjective Progress Note Date: 10/21/22 (delayed charting seen at 1130) Patient is a 67-year-old male with a history of recently discovered common bile duct obstruction requiring stent placement at [facility], atrial fibrillation, diabetes mellitus type 2, dyslipidemia, and hypertension as well as multiple other comorbid conditions who presented to the ER with complaints of abdominal pain. Patient was recently seen here in the emergency department on 10/13 and was found to have a total bilirubin of greater than 20. He also un derwent a CT abdomen and pelvis which was suspicious for mass at the pancreatic head resulting in common bile duct and gallbladder distention with pancreatic ductal prominence. He subsequently went [facility] where he reports he had an ERCP done with stent placement as well as biopsy. He is currently awaiting results. They did discuss his most likely cancerous. On arrival here he is slightly tachycardic with a pulse of 114. Laboratory analysis was remarkable for a platelet count of 138, INR 1.3, BUN 25, bilirubin 6.4, AST 290, ALT 143, alkaline phosphatase of 429. Case was discussed with oncology who recommended patient be monitored in the hospital for pain control and initiation of workup. He had adequate control with Dilaudid. Patient seen and examined at bedside. He reports that he continues to have abdominal pain. It is intermittent. He reports that the Dilaudid is helping with the pain. I discussed that he likely will continue to have some pain and it will not go away. He will need to continue pain medications. He took [place] for 20 years but has been off of that and does not take any medications at baseline. General: nontoxic, no distress, appears at stated age Derm: warm, dry Head: atraumatic, normocephalic, symmetric Eyes: Icteric sclera, jaundice, extraocular motion intact Mouth: no lip lesion, mucus membranes moist Cardiovascular: S1S2 reg, no murmur, positive posterior tibial pulse bilateral, Lungs: CTA bilateral, no rhonchi, no rales , no accessory muscle use Abdominal: soft, tender to palpation right upper quadrant, no guarding, no appreciable organomegaly Ext: no gross muscle atrophy, no edema, no contractures Neuro: CN II-XI grossly intact, no focal neuro deficits Psych: Alert, oriented, appropriate affect Assessment/Plan: Intractable abdominal pain likely secondary to malignancy Obstructive jaundice Unintentional weight loss Thrombocytopenia - Await records from [facility] - oncology recs - Dilaudid for pain control, norco added - Zofran for antiemetics Diabetes mellitus type 2 with hypoglycemia -Transition from Tresiba to levemir -Sliding-scale insulin -Follow blood sugars Atrial fibrillation with controlled ventricular response Dyslipidemia Hypertension Suspect cardiomyopathy Plan had been for discharge home. However patient developed hypoglycemia after not eating lunch and receiving several units of NovoLog. We'll continue to monitor overnight. Objective - Vital Signs Vital signs: Vital Signs Temp 97.4 F L 10/21/22 13:22 Pulse 100 10/21/22 13:22 Resp 20 10/21/22 13:22 BP 93/61 10/21/22 13:22 Pulse Ox 96 10/21/22 13:22 FiO2 Intake & Output 10/21/22 10/21/22 10/22/22 06:59 18:59 06:59 Intake Total 600 240 Balance 600 240 Weight 88.451 kg Intake: Intake, IV Titration 240 Amount Sodium Chloride 0.9% 1, 240 000 ml @ 75 mls/hr IV . [id number] ONE Rx#:[id number] Oral 600 Other: Voiding Method Toilet Toilet # Voids 1 # Bowel Movements 1 - Labs CBC & Chem 7: 10/21/22 07:15 10/21/22 07:15 Labs: Abnormal Lab Results - Last 24 Hours (Table) 10/20/22 10/20/22 10/21/22 Range/Units 12:48 20:38 07:15 RBC 3.71 L (4.40-5.60) X 10*6/uL Hgb 12.7 L (13.0-17.0) g/dL Hct 39.5 L (39.6-50.0) % MCV 106.5 H (80.0-97.0) fL MCH 34.2 H (27.0-32.0) pg Anion Gap (10.00-18.00) mmol/L Est GFR (CKD-EPI)NonAf (60.0-200.0) Glucose (70-110) mg/dL POC Glucose (mg/dL) 113 H (70-110) mg/dL Hemoglobin A1c 8.8 H (0.0-6.0) % Total Bilirubin (0.30-1.20) mg/dL AST (14-35) U/L ALT (10-49) U/L Alkaline Phosphatase (41-126) U/L Albumin (3.8-4.9) g/dL Albumin/Globulin Ratio (1.60-3.17) g/dL 10/21/22 10/21/22 10/21/22 Range/Units 07:15 07:24 11:08 RBC (4.40-5.60) X 10*6/uL Hgb (13.0-17.0) g/dL Hct (39.6-50.0) % MCV (80.0-97.0) fL MCH (27.0-32.0) pg Anion Gap 8.70 L (10.00-18.00) mmol/L Est GFR (CKD-EPI)NonAf 56.5 L (60.0-200.0) Glucose 161 H (70-110) mg/dL POC Glucose (mg/dL) 150 H 234 H (70-110) mg/dL Hemoglobin A1c (0.0-6.0) % Total Bilirubin 6.40 H (0.30-1.20) mg/dL AST 238 H (14-35) U/L ALT 161 H (10-49) U/L Alkaline Phosphatase 499 H (41-126) U/L Albumin 3.3 L (3.8-4.9) g/dL Albumin/Globulin Ratio 1.10 L (1.60-3.17) g/dL 10/21/22 10/21/22 10/21/22 Range/Units 17:11 17:28 18:01 RBC (4.40-5.60) X 10*6/uL Hgb (13.0-17.0) g/dL Hct (39.6-50.0) % MCV (80.0-97.0) fL MCH (27.0-32.0) pg Anion Gap (10.00-18.00) mmol/L Est GFR (CKD-EPI)NonAf (60.0-200.0) Glucose (70-110) mg/dL POC Glucose (mg/dL) 61 L 63 L 63 L (70-110) mg/dL Hemoglobin A1c (0.0-6.0) % Total Bilirubin (0.30-1.20) mg/dL AST (14-35) U/L ALT (10-49) U/L Alkaline Phosphatase (41-126) U/L Albumin (3.8-4.9) g/dL Albumin/Globulin Ratio (1.60-3.17) g/dL 10/21/22 Range/Units 18:29 RBC (4.40-5.60) X 10*6/uL Hgb (13.0-17.0) g/dL Hct (39.6-50.0) % MCV (80.0-97.0) fL MCH (27.0-32.0) pg Anion Gap (10.00-18.00) mmol/L Est GFR (CKD-EPI)NonAf (60.0-200.0) Glucose (70-110) mg/dL POC Glucose (mg/dL) 115 H (70-110) mg/dL Hemoglobin A1c (0.0-6.0) % Total Bilirubin (0.30-1.20) mg/dL AST (14-35) U/L ALT (10-49) U/L Alkaline Phosphatase (41-126) U/L Albumin (3.8-4.9) g/dL Albumin/Globulin Ratio (1.60-3.17) g/dL
[2022-10-21 20:38] LABS: Glucose,Whole Blood 134 mg/dL (70-110)
[2022-10-22] MEDS: HYDROmorphone 1 MG/ML 1 ML SYRINGE IVP PRN ×3 (00:12→07:49)
[2022-10-22 02:31] LABS: Glucose,Whole Blood 95 mg/dL (70-110)
[2022-10-22 07:16] LABS: Glucose,Whole Blood 89 mg/dL (70-110)
[2022-10-22] MEDS: INSULIN ASPART (NovoLOG) 100 UNIT/ML VIAL SQ SCH ×3 (07:36→17:46)
[2022-10-22 07:45] VITALS: RESP 16
[2022-10-22] MEDS: METOPROLOL TARTRATE 50 MG TAB PO SCH (07:47)
[2022-10-22] MEDS: FUROSEMIDE 20 MG TAB PO SCH (07:48)
[2022-10-22] MEDS: APIXABAN 5 MG TAB PO SCH (07:48)
[2022-10-22] MEDS: CYANOCOBALAMIN 500 MCG TAB PO SCH (07:48)
[2022-10-22] MEDS: CHOLECALCIFEROL 25 MCG (1000 IU) TABLET PO SCH (07:48)
[2022-10-22] MEDS: ISOSORBIDE MONONITRATE ER 30 MG TAB.ER.24H PO SCH (07:48)
[2022-10-22] MEDS: allopurinoL 100 MG TAB PO SCH (07:48)
[2022-10-22] MEDS ORDERED: INSULIN DETEMIR (LEVEMIR) 100 UNIT/ML SYR SQ SCH (09:00)
[2022-10-22 11:10] LABS: Glucose,Whole Blood 109 mg/dL (70-110)
[2022-10-22 12:51] VITALS: BP 96/55; PULSE 105; TEMP 97.5
[2022-10-22] MEDS ORDERED: HYDROcodone/APAP 5-325MG 1 EACH TAB PO STA (16:32)
[2022-10-22 17:11] LABS: Glucose,Whole Blood 96 mg/dL (70-110)
--- NOTE | 2022-10-22 18:23 | P.DS ---
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 Patient was recently seen here in the emergency department on 10/13 and was found to have a total bilirubin of greater than 20. He also underwent a CT abdomen and pelvis which was suspicious for mass at the pancreatic head resulting in common bile duct and gallbladder distention with pancreatic ductal prominence. He subsequently went [facility] where he had an ERCP done with stent placement as well as biopsy which came back as adenocarcinoma of the bile duct. On arrival here he was slightly tachycardic with a pulse of 114. Laboratory analysis was remarkable for a platelet count of 138, INR 1.3, BUN 25, bilirubin 6.4, AST 290, ALT 143, alkaline phosphatase of 429. He was admitted for pain control and oncology evaluation. Oncology informed patient that he will need EUS and PET for proper stagging, which can only be done in the outpatient setting. [facility] He continued to have Abdominal pain, he was on IV dilaudid and despite ordering and sking the patient to try [place] for pain control, patient conitnued to refuse and use IV dilaudid, Dilaudid was discontinued resulting the patient trying [place]. Patient's [place] was then increased when he stated 10/325 was ineffective. When this was done patient stated he could be discharged home as he can do this at home. When I went to prescribe him [place] on discharge he refused stating he could not have continued prescriptions from his primary care doctor after discharge. Nursing did inform him that oncology could continue to fill these scripts or his primary with maybe reconsider as he now has a diagnosis of cancer, patient continued to refuse [place] prescription on discharge. Patient has a high risk for readmission at this hospital or another hospital due to pain as he adamantly refused oral pain medications on discharge. Follow-up: Dr. Haque next week, Dr. Rosa in 1-2 weeks. Patient seen and examined at bedside. Now abdominal pain has shifted to lower abdomen. We discussed that he will likely have pain with malignancy and pancreatic mass and that we need to try oral medication options to control pain as cannot be discharged on IV dialudid. During our conversation patient was standing next to bed and lifting suitcase off bed and moving it to the floor, despite me offering to help. Vital signs reviewed and stable. General: nontoxic, no distress, appears at stated age Derm:+ jaundice, warm, dry Head: atraumatic, normocephalic, symmetric Eyes: EOMI, no lid lag, +icteric sclera Mouth: no lip lesion, mucus membranes moist Cardiovascular: S1S2 reg, no murmur, positive posterior tibial pulse bilateral, Lungs: CTA bilateral, no rhonchi, no rales , no accessory muscle use Abdominal: soft, +tender to palpation diffusely, no guarding, no appreciable organomegaly Ext: no gross muscle atrophy, no edema, no contractures Neuro: CN II-XI grossly intact, no focal neuro deficits Psych: Alert, oriented, appropriate affect A total of 45 minutes of time were spent preparing this complex discharge summary. Patient was discharged on 10/22/2025. Plan - Discharge Summary Discharge Rx Participant: Yes New Discharge Prescriptions: Continue Nitroglycerin Sl Tabs [Nitrostat] 0.4 mg SUBLINGUAL Q5M PRN PRN Reason: Chest Pain Cyclobenzaprine [Flexeril] 10 mg PO HS PRN PRN Reason: Muscle Spasm Isosorbide Mononitrate ER [Imdur] 30 mg PO DAILY Apixaban [Eliquis] 5 mg PO BID Krill Oil 1,500 mg PO DAILY Cyanocobalamin (Vitamin B-12) [Vitamin B-12] 1,000 mcg PO DAILY allopurinoL [Zyloprim] 100 mg PO DAILY Pravastatin Sodium [Pravachol] 40 mg PO HS Metoprolol Tartrate [Lopressor] 50 mg PO HS Metoprolol Tartrate [Lopressor] 100 mg PO DAILY Furosemide [Lasix] 20 mg PO DAILY Cholecalciferol [Vitamin D3 (25 Mcg = 1000 Iu)] 50 mcg PO DAILY Changed Insulin Degludec [Tresiba Flextouch U-100 Pen] 10 units SQ DAILY #0 Discharge Medication List Apixaban [Eliquis] 5 mg PO BID 03/20/18 [History] Cyanocobalamin (Vitamin B-12) [Vitamin B-12] 1,000 mcg PO DAILY 03/20/18 [History] Cyclobenzaprine [Flexeril] 10 mg PO HS PRN 03/20/18 [History] Isosorbide Mononitrate ER [Imdur] 30 mg PO DAILY 03/20/18 [History] Krill Oil 1,500 mg PO DAILY 03/20/18 [History] Nitroglycerin Sl Tabs [Nitrostat] 0.4 mg SUBLINGUAL Q5M PRN 03/20/18 [History] Pravastatin Sodium [Pravachol] 40 mg PO HS 12/13/19 [History] allopurinoL [Zyloprim] 100 mg PO DAILY 12/13/19 [History] Cholecalciferol [Vitamin D3 (25 Mcg = 1000 Iu)] 50 mcg PO DAILY 10/13/22 [History] Metoprolol Tartrate [Lopressor] 50 mg PO HS 10/13/22 [History] Metoprolol Tartrate [Lopressor] 100 mg PO DAILY 10/13/22 [History] Furosemide [Lasix] 20 mg PO DAILY 10/20/22 [History] Insulin Degludec [Tresiba Flextouch U-100 Pen] 10 units SQ DAILY #0 10/22/22 [Rx] Follow up Appointment(s)/Referral(s): Matthew Rosa MD [STAFF PHYSICIAN] - 1 Week Marco Haque MD [Primary Care Provider] - 1-2 days Patient Instructions/Handouts: Pancreatic Cancer (DC) Activity/Diet/Wound Care/Special Instructions: Activity: as tolerated Diet: low fat Special Instructions: Ensure follow-up with Dr. Rosa. You will need a PET scan for further evaluation of your cancer to plan for an appropriate treatment regiment. Discharge/Stand Alone Forms: Who Do I Call?, Community Resources, Personal Gl Accountant Discharge Disposition: HOME SELF-CARE
== END 2022-10-22 18:35 | disposition home or self-care (01) | DRG 947 ==
LOC: EC 12:22 → 5NMEDONC 16:47
PROVIDERS: ADMIT Internal Medicine; ATTEND Internal Medicine
DX: G89.3 Neoplasm related pain (acute) (chronic) (principal); K83.1 Obstruction of bile duct; I42.9 Cardiomyopathy, unspecified; C24.0 Malignant neoplasm of extrahepatic bile duct; D69.6 Thrombocytopenia, unspecified; E11.649 Type 2 diabetes mellitus with hypoglycemia without coma; K86.89 Other specified diseases of pancreas; I48.91 Unspecified atrial fibrillation; F10.21 Alcohol dependence, in remission; D75.89 Other specified diseases of blood and blood-forming organs; E78.5 Hyperlipidemia, unspecified; I10 Essential (primary) hypertension; M54.6 Pain in thoracic spine; R07.89 Other chest pain; N20.0 Calculus of kidney; I49.3 Ventricular premature depolarization; M19.90 Unspecified osteoarthritis, unspecified site; Z79.01 Long term (current) use of anticoagulants; Z79.85 Long-term (current) use of injectable non-insulin antidiabetic drugs; Z79.899 Other long term (current) drug therapy; Z96.89 Presence of other specified functional implants; Z87.891 Personal history of nicotine dependence; Z87.442 Personal history of urinary calculi; Z95.5 Presence of coronary angioplasty implant and graft; Z88.5 Allergy status to narcotic agent
CPT/HCPCS: 36415; 80053; 82150; 83036; 83605; 83690; 85025; 85027; 85610; 85730; 93005; 96361; 96374; 96376; 99285

== ENCOUNTER → 2022-10-28 | Outpatient (CLI) | payer MEDICARE, OTHER ==
--- NOTE | 2022-10-31 07:08 | PE ---
EXAMINATION TYPE: PET CT fusion skull to thigh DATE OF EXAM: 10/28/2022 COMPARISON: Most recent CT October 13, 2022 and older studies. HISTORY: Newly diagnosed pancreatic cancer. TECHNIQUE: Following the intravenous administration of 12.55 mCi of F-18 FDG, whole body images are performed from the skull base to the midthigh. Images are reviewed on the computer in the coronal, a xial, and sagittal planes. Reconstructed rotating images are created on independent workstation and reviewed on the computer. A localization and attenuation correction CT is performed in conjunction with the PET scan. Blood glucose level equals 103 SCAN: Initial Scan FINDINGS: SKULL BASE AND NECK: No areas of abnormal hypermetabolic uptake. CHEST, MEDIASTINUM, AND HILAR REGION: Multiple areas of abnormal hypermetabolic uptake. ABDOMEN AND PELVIS: Hypermetabolic lesion in the pancreatic head measures approximately 2.6 x 2.1 cm with abnormal hypermetabolic uptake, max SUV is 6.78 on axial image 160. There is new internal biliar y stent along right aspect of this. There is persistent distention of the gallbladder with dependent gallstones. Improved biliary dilatat ion noted. Persistent dilated pancreatic duct. Mild nonspecific uptake involving right lateral mid abdominal bowel loop is nonspecific. No additiona l areas of abnormal hypermetabolic uptake identified. Normal excretion is seen. OSSEOUS STRUCTURES: No areas of abnormal hypermetabolic uptake. OTHER CT: Moderate calcified plaque of the bilateral carotid bulbs. There is cardiomegaly with modera te to severe three-vessel coronary artery calcification. There is ectatic and atherosclerotic abdomin al aorta. Mildly enlarged prostate consistent with BPH. Straightening of cervical spine with multilev el spurring. IMPRESSION: Primary pancreatic neoplasm without abnormal adenopathy or metastatic disease.
== END | disposition home or self-care (01) ==
LOC: RADPETMAIN 08:12
PROVIDERS: ATTEND Internal Medicine Hematology & Oncology
DX: C25.9 Malignant neoplasm of pancreas, unspecified (principal)
CPT/HCPCS: 78815; A9552

== ENCOUNTER 2023-01-31 14:36 | Inpatient (IN) | payer MEDICARE, OTHER ==
[2023-01-31] MEDS ORDERED: ONDANSETRON 4 MG/2 ML VIAL IVP STA (14:50)
[2023-01-31] MEDS ORDERED: HYDROmorphone 1 MG/ML 1 ML SYRINGE IVP STA (14:50)
[2023-01-31] MEDS ORDERED: FAMOTIDINE 20 MG/2 ML VIAL IV STA (14:50)
--- NOTE | 2023-01-31 14:54 | ED ---
General Adult HPI - General Chief complaint: Arrhythmia/Palpitations Stated complaint: Sob Time Seen by Provider: 01/31/23 14:40 Source: patient, RN notes reviewed Mode of arrival: ambulatory Limitations: no limitations - History of Present Illness Initial comments: Patient is a pleasant 67-year-old male presenting to the emergency department with concerns for A. fib and RVR. Patient does have history of A. fib. Patient was sent from primary care physician office. Patient does have some associated dyspnea that is worse with exertion. Patient is having mild leg swelling. Patient has been less active. Decreased oral intake initially the past couple days. Patient states anything he puts in his mouth is painful. Patient does have abdominal pain related to his pancreatic cancer. Patient is on chemotherapy, last was last week. - Related Data Home Medications Medication Instructions Recorded Confirmed Apixaban [Eliquis] 5 mg PO BID 03/20/18 01/31/23 Cyanocobalamin (Vitamin B-12) 1,000 mcg PO DAILY 03/20/18 01/31/23 [Vitamin B-12] Cyclobenzaprine [Flexeril] 10 mg PO HS PRN 03/20/18 01/31/23 Isosorbide Mononitrate ER [Imdur] 30 mg PO DAILY 03/20/18 01/31/23 Nitroglycerin Sl Tabs [Nitrostat] 0.4 mg SUBLINGUAL Q5M PRN 03/20/18 01/31/23 Pravastatin Sodium [Pravachol] 20 mg PO HS 12/13/19 01/31/23 allopurinoL [Zyloprim] 100 mg PO DAILY 12/13/19 01/31/23 Cholecalciferol [Vitamin D3 (25 50 mcg PO DAILY 10/13/22 01/31/23 Mcg = 1000 Iu)] Metoprolol Tartrate [Lopressor] 50 mg PO HS 10/13/22 01/31/23 Metoprolol Tartrate [Lopressor] 100 mg PO DAILY 10/13/22 01/31/23 Furosemide [Lasix] 40 mg PO DAILY 10/20/22 01/31/23 HYDROcodone/APAP 10-325MG [[place] 1 tab PO Q6HR PRN 01/31/23 01/31/23 10-325] Previous Rx's Medication Instructions Recorded Insulin Degludec [Tresiba 10 units SQ DAILY #0 10/22/22 Flextouch U-100 Pen] Allergies Allergy/AdvReac Type Severity Reaction Status Date / Time morphine Allergy Swelling Verified 01/31/23 15:27 Review of Systems ROS Statement: Those systems with pertinent positive or pertinent negative responses have been documented in the HPI. ROS Other: All systems not noted in ROS Statement are negative. Constitutional: Denies: fever Eyes: Denies: eye pain ENT: Denies: ear pain Respiratory: Reports: as per HPI, dyspnea. Denies: cough Cardiovascular: Denies: chest pain Endocrine: Reports: as per HPI, fatigue Gastrointestinal: Reports: as per HPI, abdominal pain, nausea. Denies: vomiting Genitourinary: Denies: dysuria Musculoskeletal: Denies: back pain Skin: Denies: rash Neurological: Denies: headache Past Medical History Past Medical History: Atrial Fibrillation, Chest Pain / Angina, Diabetes Mellitus, Hyperlipidemia, Hypertension, Musculoskeletal Disorder, Osteoarthritis (OA) Additional Past Medical History / Comment(s): BACK PAIN R/T OLD INJURY. EDEMA FEET/ANKLES. kidney stones, Recent diagnosis of Pancreatic tumor. Patient has not had follow-up with Oncologist yet and was readmitted for increased pain. History of Any Multi-Drug Resistant Organisms: None Reported Past Surgical History: Back Surgery, Heart Catheterization, Heart Catheterization With Stent, Orthopedic Surgery Additional Past Surgical History / Comment(s): R Knee scope; Colonoscopy; Deviat ed Septum Repair. BACK SURG.X2 PTCA W/ STENTS X2. CARDIOVERSION 03/28/18. ERCP last week with Dr. Morfin out of [facility] with stent placement. Past Anesthesia/Blood Transfusion Reactions: No Reported Reaction Date of Last Stent Placement:: 1997 Past Psychological History: No Psychological Hx Reported Smoking Status: Former smoker Past Alcohol Use History: None Reported Past Drug Use History: None Reported - Past Family History Mother Family Medical History: Dementia, Memory Impairment Additional Family Medical History / Comment(s): Mother in her 80s r/t advanced dementia. Father Family Medical History: Myocardial Infarction ([place]) Additional Family Medical History / Comment(s): Father from coronary artery disease. Sister(s) Additional Family Medical History / Comment(s): Patient has 3 sisters one past from CVA. One has coronary artery disease with stent in 1 has no major medical problems. Patient is not having any children. Patient does not have any brothers. General Exam Limitations: no limitations General appearance: alert, in no apparent distress Head exam: Present: normocephalic Eye exam: Present: normal appearance ENT exam: Present: normal oropharynx, other (No signs of candidiasis or ulcers) Neck exam: Present: normal inspection Respiratory exam: Present: rales (Mild bilateral bases) Cardiovascular Exam: Present: tachycardia, irregular rhythm GI/Abdominal exam: Present: soft, tenderness (Minimal diffuse tenderness) Extremities exam: Present: pedal edema (+1 bilateral). Absent: calf tenderness Neurological exam: Present: alert Psychiatric exam: Present: normal affect, normal mood Skin exam: Present: normal color Course Vital Signs 01/31/23 01/31/23 01/31/23 14:38 15:55 16:36 Temperature 97.8 F Pulse Rate 133 H 109 H Respiratory 18 18 18 Rate Blood Pressure 105/78 105/78 105/78 O2 Sat by Pulse 96 98 98 Oximetry EKG Findings - EKG Results: EKG: interpreted by ERMD (Lateral T wave inversion. Inferior T wave inversion.), normal QRS EKG shows: tachycardia, atrial fibrillation Medical Decision Making - Medical Decision Making Was pt. sent in by a medical professional or institution (, PA, [employer], urgent care, hospital, or custodial...) When possible be specific @ -Patient sent from provider secondary to A. fib Did you speak to anyone other than the patient for history (EMS, parent, family, police, friend...)? What history was obtained from this source @ -[No] Did you review nursing and triage notes (agree or disagree)? Why? @ -[I reviewed and agree with nursing and triage notes] Were old charts reviewed (outside hosp., previous admission, EMS record, old EKG, old radiological studies, urgent care reports/EKG's, custodial records)? Report findings @ -[No old charts were reviewed] Differential Diagnosis (chest pain, altered mental status, abdominal pain women, abdominal pain men, vaginal bleeding, weakness, fever, dyspnea, syncope, headache, dizziness, GI bleed, back pain, seizure, CVA, palpatations, mental health)? @ -Differential Dyspnea: Coronary syndrome, arrhythmia, tamponade, asthma, COPD, pulmonary embolism, pneumonia, pneumothorax, pulmonary effusion, anaphylaxis, diabetic ketoacidosis, flailed chest, pulmonary contusion, diaphragmatic rupture, anemia, neuromuscular, this is not meant to be an all-inclusive list. EKG interpreted by me (3pts min.). @ -[As above] X-rays interpreted by me (1pt min.). @ -Chest x-ray does not reveal acute abnormality CT interpreted by me (1pt min.). @ -[None done] U/S interpreted by me (1pt. min.). @ -[None done] What testing was considered but not performed or refused? (CT, X-rays, U/S, labs)? Why? @ -[None] What meds were considered but not given or refused? Why? @ -[None] Did you discuss the management of the patient with other professionals (professionals i.e. , PA, [employer], lab, RT, psych nurse, certified social workers in health care, cashier ticket selling, teacher, medical information officer, case making machine operator)? Give summary @ -Case was discussed with practitioner Cayla, covering with Dr. Lamar, who admits for Dr. Tidwell, who admits for Dr. Haque, time. Was smoking cessation discussed for >3mins.? @ -[No] Was critical care preformed (if so, how long)? @ -31 minutes crit. Were there social determinants of health that impacted care today? How? (Homelessness, low income, unemployed, alcoholism, drug addiction, transportation, low edu. Level, literacy, decrease access to med. care, snf, rehab)? @ -[No] Was there de-escalation of care discussed even if they declined (Discuss DNR or withdrawal of care, Hospice)? DNR status @ -[No] What co-morbidities impacted this encounter? (DM, HTN, Smoking, COPD, CAD, Cancer, CVA, ARF, Chemo, Hep., AIDS, mental health diagnosis, sleep apnea, morbid obesity)? @ -Patient is a chemotherapy with history of atrial fibrillation Was patient admitted / discharged? Hospital course, mention meds given and route, prescriptions, significant lab abnormalities, going to OR and other pertinent info. @ -Patient reevaluated and feels better with medications and heart rate control. Dyspnea has improved. Heart rate is 108 and remains in nature fibrillation. Case discussed with practitioner Cayla Lara, who will admit and consult placed with cardiology and oncology Undiagnosed new problem with uncertain prognosis? @ -[No] Drug Therapy requiring intensive monitoring for toxicity (Heparin, Nitro, Insulin, Cardizem)? @ -[Patient is on Cardizem drip that will need to be monitored] Were any procedures done? @ -[No] Diagnosis/symptom? @ -A. fib with RVR, thrombocytopenia. Acute, or Chronic, or Acute on Chronic? @ -Acute, acute Uncomplicated (without systemic symptoms) or Complicated (systemic symptoms)? @ -[default] Side effects of treatment? @ -[No] Exacerbation, Progression, or Severe Exacerbation? @ -[No] Poses a threat to life or bodily function? How? (Chest pain, [place], [place], pneumonia, PE, COPD, DKA, ARF, appy, cholecystitis, CVA, Diverticulitis, Homicidal, Suicidal, threat to staff... and all critical care pts) @ -[No] - Lab Data Result diagrams: 01/31/23 14:56 01/31/23 14:56 Lab Results 01/31/23 01/31/23 01/31/23 Range/Units 14:56 14:56 14:56 WBC 5.9 (3.8-10.6) k/uL RBC 2.68 L (4.30-5.90) m/uL Hgb 9.4 L (13.0-17.5) gm/dL Hct 27.9 L (39.0-53.0) % MCV 103.9 H (80.0-100.0) fL MCH 34.9 (25.0-35.0) pg MCHC 33.6 (31.0-37.0) g/dL RDW 16.0 H (11.5-15.5) % Plt Count 61 L (150-450) k/uL MPV 9.4 Neutrophils % 86 % Lymphocytes % 10 % Monocytes % 3 % Eosinophils % 1 % Basophils % 0 % Neutrophils # 5.0 (1.3-7.7) k/uL Lymphocytes # 0.6 L (1.0-4.8) k/uL Monocytes # 0.1 (0-1.0) k/uL Eosinophils # 0.0 (0-0.7) k/uL Basophils # 0.0 (0-0.2) k/uL Anisocytosis Slight Macrocytosis Moderate PT 15.7 H (9.0-12.0) sec INR 1.6 H (<1.2) APTT 25.9 (22.0-30.0) sec Sodium 136 L (137-145) mmol/L Potassium 4.8 (3.5-5.1) mmol/L Chloride 106 (98-107) mmol/L Carbon Dioxide 19 L (22-30) mmol/L Anion Gap 11 mmol/L BUN 36 H (9-20) mg/dL Creatinine 1.56 H (0.66-1.25) mg/dL Est GFR (CKD-EPI)AfAm 52 (>60 ml/min/1.73 sqM) Est GFR (CKD-EPI)NonAf 45 (>60 ml/min/1.73 sqM) Glucose 165 H (74-99) mg/dL Calcium 8.2 L (8.4-10.2) mg/dL Magnesium 1.7 (1.6-2.3) mg/dL Total Bilirubin 1.0 (0.2-1.3) mg/dL AST 21 (17-59) U/L ALT 17 (4-49) U/L Alkaline Phosphatase 117 (38-126) U/L Troponin I (0.000-0.034) ng/mL NT-Pro-B Natriuret Pep pg/mL Total Protein 5.7 L (6.3-8.2) g/dL Albumin 2.9 L (3.5-5.0) g/dL Amylase <30 L (30-110) U/L Lipase 27 (23-300) U/L TSH 2.670 (0.465-4.680) mIU/L Free T4 1.47 (0.78-2.19) ng/dL Free T3 pg/mL 3.4 (2.8-5.3) pg/ml 01/31/23 01/31/23 Range/Units 14:56 14:56 WBC (3.8-10.6) k/uL RBC (4.30-5.90) m/uL Hgb (13.0-17.5) gm/dL Hct (39.0-53.0) % MCV (80.0-100.0) fL MCH (25.0-35.0) pg MCHC (31.0-37.0) g/dL RDW (11.5-15.5) % Plt Count (150-450) k/uL MPV Neutrophils % % Lymphocytes % % Monocytes % % Eosinophils % % Basophils % % Neutrophils # (1.3-7.7) k/uL Lymphocytes # (1.0-4.8) k/uL Monocytes # (0-1.0) k/uL Eosinophils # (0-0.7) k/uL Basophils # (0-0.2) k/uL Anisocytosis Macrocytosis PT (9.0-12.0) sec INR (<1.2) APTT (22.0-30.0) sec Sodium (137-145) mmol/L Potassium (3.5-5.1) mmol/L Chloride (98-107) mmol/L Carbon Dioxide (22-30) mmol/L Anion Gap mmol/L BUN (9-20) mg/dL Creatinine (0.66-1.25) mg/dL Est GFR (CKD-EPI)AfAm (>60 ml/min/1.73 sqM) Est GFR (CKD-EPI)NonAf (>60 ml/min/1.73 sqM) Glucose (74-99) mg/dL Calcium (8.4-10.2) mg/dL Magnesium (1.6-2.3) mg/dL Total Bilirubin (0.2-1.3) mg/dL AST (17-59) U/L ALT (4-49) U/L Alkaline Phosphatase (38-126) U/L Troponin I <0.012 (0.000-0.034) ng/mL NT-Pro-B Natriuret Pep 72769 pg/mL Total Protein (6.3-8.2) g/dL Albumin (3.5-5.0) g/dL Amylase (30-110) U/L Lipase (23-300) U/L TSH (0.465-4.680) mIU/L Free T4 (0.78-2.19) ng/dL Free T3 pg/mL (2.8-5.3) pg/ml Critical Care Time Critical Care Time: Yes Total Critical Care Time: 31 Disposition Clinical Impression: Atrial fibrillation with RVR, Thrombocytopenia Disposition: ADMITTED IP TO THIS HOSP Is patient prescribed a controlled substance at d/c from ED?: No Referrals: None,Stated [REFERRING] - 1-2 days Time of Disposition: 16:55
[2023-01-31 15:25] LABS: Anisocytosis Slight; Basophils % (A) 0 %; Eosinophils % (A) 1 %; HCT 27.9 % (39.0-53.0); HGB 9.4 gm/dL (13.0-17.5); Lymphocytes # (A) 0.6 k/uL (1.0-4.8); Lymphocytes % (A) 10 %; MCH 34.9 pg (25.0-35.0); MCHC 33.6 g/dL (31.0-37.0); MCV 103.9 fL (80.0-100.0); Macrocytosis Moderate; Mean Platelet Volume 9.4; Monocytes # (A) 0.1 k/uL (0-1.0); Monocytes % (A) 3 %; Neutrophils % (A) 86 %; RBC 2.68 m/uL (4.30-5.90); WBC 5.9 k/uL (3.8-10.6)
[2023-01-31 15:28] LABS: Platelet Count 61 k/uL (150-450)
[2023-01-31] MEDS ORDERED: DILTIAZEM 125 MG in SODIUM CHLORIDE 0.9% 100 ML IV SCH (15:30)
--- NOTE | 2023-01-31 15:33 | XR ---
EXAMINATION TYPE: XR chest 2V DATE OF EXAM: 01/31/2023 COMPARISON: 12/13/2019 HISTORY: Shortness of breath TECHNIQUE: Frontal and lateral views of the chest are obtained. FINDINGS: Scattered senescent parenchymal changes noted. Hyperinflation compatible with COPD. No evidence for infiltrate. No evidence for atelectasis. Heart size is stable. Mediastinal structures are stable and grossly unremarkable. No evidence for hilar prominence. Degenerative changes dorsal spine. IMPRESSION: 1. No evidence for acute pulmonary disease.
[2023-01-31 15:37] LABS: INR 1.6 (<1.2); Partial Thromboplastin Time 25.9 sec (22.0-30.0); Prothrombin Time 15.7 sec (9.0-12.0)
[2023-01-31 15:42] LABS: ALT 17 U/L (4-49); AST 21 U/L (17-59); African American GFR (CKD) 52 (>60 ml/min/1.73 sqM); Albumin 2.9 g/dL (3.5-5.0); Alkaline Phosphatase 117 U/L (38-126); Amylase <30 U/L (30-110); Anion Gap 11 mmol/L; Blood Urea Nitrogen 36 mg/dL (9-20); Calcium 8.2 mg/dL (8.4-10.2); Carbon Dioxide 19 mmol/L (22-30); Chloride 106 mmol/L (98-107); Glucose 165 mg/dL (74-99); Lipase 27 U/L (23-300); Magnesium 1.7 mg/dL (1.6-2.3); Non-African American GFR(CKD) 45 (>60 ml/min/1.73 sqM); Potassium 4.8 mmol/L (3.5-5.1); Sodium 136 mmol/L (137-145); Total Protein 5.7 g/dL (6.3-8.2)
[2023-01-31 15:59] LABS: T4, Free (Free Thyroxine) 1.47 ng/dL (0.78-2.19)
[2023-01-31] MEDS ORDERED: ONDANSETRON 4 MG/2 ML VIAL IVP PRN (16:56)
[2023-01-31] MEDS ORDERED: NALOXONE 0.4 MG/ML 1 ML VIAL IV PRN (16:56)
[2023-01-31] MEDS: HYDROmorphone 1 MG/ML 1 ML SYRINGE IVP PRN (20:03)
[2023-01-31] MEDS: SODIUM CHLORIDE 0.9% 1,000 ML IV SCH (20:23)
[2023-02-01] MEDS ORDERED: DEXTROSE 5% IN WATER 100 ML with AMIODARONE 150 MG IV ONE (00:45)
[2023-02-01] MEDS ORDERED: AMIODARONE 360 MG in DEXTROSE 5% IN WATER 200 ML IV ONE ×2 (01:00)
[2023-02-01 05:18] LABS: Basophils % (A) 0 %; Eosinophils # (A) 0.1 k/uL (0-0.7); Eosinophils % (A) 1 %; HCT 28.6 % (39.0-53.0); HGB 9.6 gm/dL (13.0-17.5); Lymphocytes # (A) 0.8 k/uL (1.0-4.8); Lymphocytes % (A) 20 %; MCH 35.5 pg (25.0-35.0); MCHC 33.7 g/dL (31.0-37.0); MCV 105.3 fL (80.0-100.0); Macrocytosis Moderate; Monocytes # (A) 0.2 k/uL (0-1.0); Monocytes % (A) 4 %; Neutrophils # (A) 2.9 k/uL (1.3-7.7); Neutrophils % (A) 72 %; RBC 2.71 m/uL (4.30-5.90); RDW 15.8 % (11.5-15.5)
[2023-02-01 05:29] LABS: Platelet Count 59 k/uL (150-450)
[2023-02-01 05:35] LABS: Calcium 8.4 mg/dL (8.4-10.2); Potassium 4.8 mmol/L (3.5-5.1); Total Bilirubin 1.1 mg/dL (0.2-1.3); Total Protein 5.9 g/dL (6.3-8.2)
[2023-02-01] MEDS: AMIODARONE 450 MG in DEXTROSE 5% IN WATER 250 ML IV SCH ×4 (07:16→22:16)
[2023-02-01] MEDS: SODIUM CHLORIDE 0.9% 1,000 ML IV SCH ×2 (07:29→10:19)
[2023-02-01] MEDS: APIXABAN 5 MG TAB PO SCH ×2 (10:03→20:24)
[2023-02-01] MEDS: ISOSORBIDE MONONITRATE ER 30 MG TAB.ER.24H PO SCH (10:03)
[2023-02-01] MEDS: METOPROLOL TARTRATE 50 MG TAB PO SCH (10:05)
[2023-02-01] MEDS: PANTOPRAZOLE 40 MG/10 ML VIAL IV SCH (10:06)
[2023-02-01] MEDS: HYDROmorphone 1 MG/ML 1 ML SYRINGE IVP PRN ×2 (10:10→18:17)
--- NOTE | 2023-02-01 12:18 | P.CRDCN ---
History of Present Illness Consult date: 02/01/23 Consult reason: atrial fibrillation History of present illness: History of present illness: This is a 67-year-old male patient of Dr. FELI Michael with past medical history of coronary artery disease with prior stent of the RCA in 1996, persistent atrial fibrillation with previous 2 attempts for cardioversion were unsuccessful, ischemic cardiomyopathy with EF of 30-35%, moderate mitral regurgitation, chronic kidney disease, hypertension, hyperlipidemia, diabetes, peripheral vascular disease, family history of premature coronary artery disease, nicotine dependence. Patient was last seen in the office by Dr. Carter for evaluation of ischemic Ligament office May 2022 for evaluation of ischemic cardiomyopathy and plan at that time was for single-chamber ICD implantation for primary prevention of STD. Subsequently, in September 2022, patient was newly diagnosed with pancreatic cancer. He is currently undergoing chemotherapy at under Dr. Rosa every other week. Patient presented to [facility] emergency center due to shortness of breath which is been chronic but worsening and also heartbeat that seems to go slow and then fast. Patient has not been eating or drinking very much for the past week as his mouth is painful. He also has chronic abdominal pain. He also states he has had a number of falls last one was on Monday with no injury, no loss of consciousness. He states he feels dizzy at the time when he falls. Patient has been started on amiodarone drip. EKG atrial fibrillation 114 bpm Chest x-ray: No acute pulmonary disease WBC 4, hemoglobin 9.6, platelet count 59. Sodium 136, potassium 4.8, BUN 34 creatinine 1.55. Blood sugar 128. Liver function tests within normal limits. ProBNP 10,200. Troponin negative 1. TSH 2.67. Lipase 27. D-dimer 0.25. Home cardiac medications: Eliquis 5 mg twice daily, Lasix 40 mg daily, Imdur 30 mg daily, Lopressor 100 mg in the morning and 50 mg in the evening, Nitrostat as needed, pravastatin 20 g at bedtime Echocardiogram 11/2021 EF 35%, inferior hypokinesia, moderate pulmonary hypertension, moderate to severe mitral regurgitation, moderate mitral valve calcification. Unsuccessful cardioversion 05/2018 and 03/2018 Lexiscan stress test 08/11 2116. Her wall defect with no reversible ischemia, EF 30% Review Of Systems: At the time of my evaluation: Constitutional: No fever, no chills. No weakness, fatigue or lethargy. EENT: No headache. No dizziness. Lungs: No shortness of breath, cough, no sputum production. No wheezing. Cardiovascular: No chest pain, no lower extremity edema. No palpitations. No paroxysmal nocturnal dyspnea. No orthopnea. No lightheadedness or dizziness. No syncopal episodes. Abdominal: No abdominal pain. No nausea, vomiting. No diarrhea. No constipation. No bloody or tarry stools. Genitourinary: No dysuria.. No urinary retention. Musculoskeletal: No myalgias. No muscle weakness, no frequent falls. No back pain. No neck pain. Integumentary: No wounds. No rash. No unusual bruising. Neurologic: No aphasia. No facial droop. No change in mentation. No head injury. No headache. Physical examination: Gen: This is a 67-year-old female. Patient is resting in the ER and appears to be in no acute distress. He does appear to be unwell. VS: reviewed HEENT: Head is atraumatic, normocephalic. Pupils equal, round. Sclerae is anicteric. NECK: Supple. No JVD. . LUNGS: Clear to auscultation. No wheezes or rhonchi. No intercostal retractions. HEART: Regular rate and rhythm. Systolic murmur. ABDOMEN: Soft No tenderness. EXTREMITIES: No pedal edema. No calf tenderness. NEUROLOGICAL: Patient is awake, alert and oriented x3. Assessment: A. fib with RVR Ischemic cardiomyopathy Coronary artery disease with prior stent of the RCA Persistent atrial fibrillation Moderate mitral regurgitation Chronic kidney disease Hypertension Hyperlipidemia Diabetes Peripheral vascular disease Pancreatic cancer Plan: continue patient on amiodarone drip Continue patient's home same Lopressor dose. cardiac medications including Oncology has ordered a VQ scan and Doppler of the lower extremities Further recommendations to follow based upon clinical course Thank you kindly for this consultation. Nurse practitioner note has been reviewed, I agree with documented findings and plan of care. Patient was seen and examined. Past Medical History Past Medical History: Atrial Fibrillation, Chest Pain / Angina, Diabetes Mellitus, Hyperlipidemia, Hypertension, Musculoskeletal Disorder, Osteoarthritis (OA) Additional Past Medical History / Comment(s): BACK PAIN R/T OLD INJURY. EDEMA FEET/ANKLES. kidney stones, Recent diagnosis of Pancreatic tumor. Patient has not had follow-up with Oncologist yet and was readmitted for increased pain. History of Any Multi-Drug Resistant Organisms: None Reported Past Surgical History: Back Surgery, Heart Catheterization, Heart Catheterizatio n With Stent, Orthopedic Surgery Additional Past Surgical History / Comment(s): R Knee scope; Colonoscopy; Deviated Septum Repair. BACK SURG.X2 PTCA W/ STENTS X2. CARDIOVERSION 03/28/18. ERCP last week with Dr. Morfin out of [facility] with stent placement. Past Anesthesia/Blood Transfusion Reactions: No Reported Reaction Date of Last Stent Placement:: 1997 Past Psychological History: No Psychological Hx Reported Smoking Status: Former smoker Past Alcohol Use History: None Reported Past Drug Use History: None Reported - Past Family History Mother Family Medical History: Dementia, Memory Impairment Additional Family Medical History / Comment(s): Mother in her 80s r/t advanced dementia. Father Family Medical History: Myocardial Infarction ([place]) Additional Family Medical History / Comment(s): Father from coronary artery disease. Sister(s) Additional Family Medical History / Comment(s): Patient has 3 sisters one past from CVA. One has coronary artery disease with stent in 1 has no major medical problems. Patient is not having any children. Patient does not have any brothers. Medications and Allergies Home Medications Medication Instructions Recorded Confirmed Type Apixaban [Eliquis] 5 mg PO BID 03/20/18 01/31/23 History Cyanocobalamin (Vitamin B-12) 1,000 mcg PO DAILY 03/20/18 01/31/23 History [Vitamin B-12] Cyclobenzaprine [Flexeril] 10 mg PO HS PRN 03/20/18 01/31/23 History Isosorbide Mononitrate ER [Imdur] 30 mg PO DAILY 03/20/18 01/31/23 History Nitroglycerin Sl Tabs [Nitrostat] 0.4 mg SUBLINGUAL Q5M PRN 03/20/18 01/31/23 History Pravastatin Sodium [Pravachol] 20 mg PO HS 12/13/19 01/31/23 History allopurinoL [Zyloprim] 100 mg PO DAILY 12/13/19 01/31/23 History Cholecalciferol [Vitamin D3 (25 50 mcg PO DAILY 10/13/22 01/31/23 History Mcg = 1000 Iu)] Metoprolol Tartrate [Lopressor] 50 mg PO HS 10/13/22 01/31/23 History Metoprolol Tartrate [Lopressor] 100 mg PO DAILY 10/13/22 01/31/23 History Furosemide [Lasix] 40 mg PO DAILY 10/20/22 01/31/23 History Insulin Degludec [Tresiba 10 units SQ DAILY #0 10/22/22 01/31/23 Rx Flextouch U-100 Pen] HYDROcodone/APAP 10-325MG [[place] 1 tab PO Q6HR PRN 01/31/23 01/31/23 History 10-325] Allergies Allergy/AdvReac Type Severity Reaction Status Date / Time morphine Allergy Swelling Verified 01/31/23 15:27 Physical Exam Vitals: Vital Signs Temp Pulse Pulse Resp BP BP Pulse Ox 02/01/23 07:15 99 18 99/61 97 02/01/23 07:00 80 18 97/78 97 02/01/23 06:00 80 17 95/63 96 02/01/23 05:00 100 17 102/62 95 02/01/23 03:00 90 16 94/57 97 02/01/23 02:00 84 17 91/61 99 02/01/23 01:05 115 H 17 100/71 99 02/01/23 00:46 120 H 17 90/60 97 02/01/23 00:31 120 H 18 80/50 98 01/31/23 23:05 111 H 18 87/59 97 01/31/23 21:15 117 H 18 97/76 97 01/31/23 20:11 104 H 18 95/69 98 01/31/23 17:25 102 H 18 90/66 98 01/31/23 16:36 109 H 18 105/78 98 01/31/23 15:55 133 H 18 105/78 98 01/31/23 14:38 97.8 F 18 105/78 96 Results 02/01/23 05:05 02/01/23 05:05 Cardiac Enzymes 01/31/23 01/31/23 02/01/23 Range/Units 14:56 14:56 05:05 AST 21 21 (17-59) U/L Troponin I <0.012 (0.000-0.034) ng/mL Coagulation 01/31/23 Range/Units 14:56 PT 15.7 H (9.0-12.0) sec APTT 25.9 (22.0-30.0) sec CBC 01/31/23 02/01/23 Range/Units 14:56 05:05 WBC 5.9 4.0 (3.8-10.6) k/uL RBC 2.68 L 2.71 L (4.30-5.90) m/uL Hgb 9.4 L 9.6 L (13.0-17.5) gm/dL Hct 27.9 L 28.6 L (39.0-53.0) % Plt Count 61 L 59 L (150-450) k/uL Comprehensive Metabolic Panel 01/31/23 02/01/23 Range/Units 14:56 05:05 Sodium 136 L 136 L (137-145) mmol/L Potassium 4.8 4.8 (3.5-5.1) mmol/L Chloride 106 105 (98-107) mmol/L Carbon Dioxide 19 L 22 (22-30) mmol/L BUN 36 H 34 H (9-20) mg/dL Creatinine 1.56 H 1.55 H (0.66-1.25) mg/dL Glucose 165 H 128 H (74-99) mg/dL Calcium 8.2 L 8.4 (8.4-10.2) mg/dL AST 21 21 (17-59) U/L ALT 17 19 (4-49) U/L Alkaline Phosphatase 117 109 (38-126) U/L Total Protein 5.7 L 5.9 L (6.3-8.2) g/dL Albumin 2.9 L 3.0 L (3.5-5.0) g/dL Current Medications Generic Name Dose Route Start Last Admin Trade Name Freq PRN Reason Stop Dose Admin Apixaban 5 mg 02/01/23 09:00 Apixaban 5 Mg Tab PO BID ANDREW Protocol Hydromorphone HCl 1 mg 01/31/23 16:56 01/31/23 20:03 Hydromorphone 1 Mg/Ml 1 Ml Syringe IVP 1 mg Q3HR PRN Administration Severe Pain (Scale 7 to 10) Sodium Chloride 1,000 mls @ 75 mls/hr 01/31/23 17:00 02/01/23 07:29 Saline 0.9% IV Not Given .[id number] [facility] Amiodarone HCl 450 mg/ 250 mls @ 16.667 mls/hr 02/01/23 07:00 02/01/23 07:16 Dextrose/Water IV 02/02/23 00:59 0.5 mg/min .Q15H ANDREW 16.667 mls/hr Administration Protocol 0.5 MG/MIN Isosorbide Mononitrate 30 mg 02/01/23 09:00 Isosorbide Mononitrate Er 30 Mg Tab.Er.24h PO DAILY [facility] Metoprolol Tartrate 100 mg 02/01/23 09:00 Metoprolol Tartrate 50 Mg Tab PO DAILY [facility] Metoprolol Tartrate 50 mg 02/01/23 21:00 Metoprolol Tartrate 50 Mg Tab PO HS [facility] Naloxone HCl 0.2 mg 01/31/23 16:56 Naloxone 0.4 Mg/Ml 1 Ml Vial IV Q2M PRN Opioid Reversal Ondansetron HCl 4 mg 01/31/23 16:56 Ondansetron 4 Mg/2 Ml Vial IVP Q8HR PRN Nausea And Vomiting Pantoprazole Sodium 40 mg 02/01/23 09:00 Pantoprazole 40 Mg/10 Ml Vial IV DAILY [facility] Pravastatin Sodium 20 mg 02/01/23 21:00 Pravastatin Sodium 20 Mg Tab PO HS [facility] 02/01/23 05:05 02/01/23 05:05
--- NOTE | 2023-02-01 12:55 | US ---
EXAMINATION TYPE: US venous doppler duplex LE BI DATE OF EXAM: 02/01/2023 12:41 PM COMPARISON: NONE CLINICAL HISTORY: swelling and pain. pain and swelling SIDE PERFORMED: Bilateral TECHNIQUE: The lower extremity deep venous system is examined utilizing real time linear array sonog eva with graded compression, doppler sonography and color-flow sonography. VESSELS IMAGED: Common Femoral Vein Deep Femoral Vein Greater Saphenous Vein * Femoral Vein Popliteal Vein Small Saphenous Vein * Proximal Calf Veins (* superficial vessels) Grayscale, color doppler, spectral doppler imaging performed of the deep veins of the lower extremiti es. There is normal flow, compressibility, vascular waveforms. Right Leg: Negative for DVT Left Leg: Negative for DVT IMPRESSION: No ultrasound evidence for deep venous thrombosis of the bilateral lower extremities.
[2023-02-01] MEDS ORDERED: IOPAMIDOL CONTRAST (ORAL USE) VIAL PO PRN (13:54)
--- NOTE | 2023-02-01 14:01 | P.HPIM ---
History of Present Illness H&P Date: 02/01/23 Chief Complaint: Shortness of breath, diarrhea, abdominal pain * 67 year-old gentleman with past medical history significant for coronary artery disease history of PCI, atrial fibrillation, cardiomyopathy with ejection fraction of 35%, peripheral vascular disease, chronic kidney disease, hypertension and hyperlipidemia presented to the emergency department with complaints of shortness of breath and abdominal pain. * Patient had also complained of ongoing diarrhea for 4 days. Patient said his last chemotherapy was one week ago and does get diarrhea post-chemo. * Patient denied associated fever, chills * While in ER initial workup included a chest x-ray which was negative, CBC obtained showed white cell count of 4, hemoglobin 9.6, hematocrit of 28, platelet count of 59. Basic metabolic panel showed sodium 136 potassium 4.8 BUN 34 creatinine 1.55 * Patient was noted to have A. fib with RVR and was started on amiodarone drip with consultations obtained from cardiology Review of Systems REVIEW OF SYSTEMS: Essentially negative except abdominal pain and diarrhea shortness of breath CONSTITUTIONAL: No fever, no malaise, no fatigue. HEENT: No recent visual problems or hearing problems. Denied any sore throat. CARDIOVASCULAR: No chest pain, orthopnea, PND, no palpitations, no syncope. PULMONARY: No shortness of breath, no cough, no hemoptysis. GASTROINTESTINAL: No diarrhea, no nausea, no vomiting, no abdominal pain. NEUROLOGICAL: No headaches, no weakness, no numbness. HEMATOLOGICAL: Denies any bleeding or petechiae. GENITOURINARY: Denies any burning micturition, frequency, or urgency. MUSCULOSKELETAL/RHEUMATOLOGICAL: Denies any joint pain, swelling, or any muscle pain. ENDOCRINE: Denies any polyuria or polydipsia. Past Medical History Past Medical History: Atrial Fibrillation, Chest Pain / Angina, Diabetes Mellitus, Hyperlipidemia, Hypertension, Musculoskeletal Disorder, Osteoarthritis (OA) Additional Past Medical History / Comment(s): BACK PAIN R/T OLD INJURY. EDEMA FEET/ANKLES. kidney stones, Recent diagnosis of Pancreatic tumor. Patient has not had follow-up with Oncologist yet and was readmitted for increased pain. History of Any Multi-Drug Resistant Organisms: None Reported Past Surgical History: Back Surgery, Heart Catheterization, Heart Catheterization With Stent, Orthopedic Surgery Additional Past Surgical History / Comment(s): R Knee scope; Colonoscopy; Deviated Septum Repair. BACK SURG.X2 PTCA W/ STENTS X2. CARDIOVERSION 03/28/18. ERCP last week with Dr. Morfin out of [facility] with stent placement. Past Anesthesia/Blood Transfusion Reactions: No Reported Reaction Date of Last Stent Placement:: 1997 Past Psychological History: No Psychological Hx Reported Smoking Status: Former smoker Past Alcohol Use History: None Reported Past Drug Use History: None Reported - Past Family History Mother Family Medical History: Dementia, Memory Impairment Additional Family Medical History / Comment(s): Mother in her 80s r/t advanced dementia. Father Family Medical History: Myocardial Infarction ([place]) Additional Family Medical History / Comment(s): Father from coronary artery disease. Sister(s) Additional Family Medical History / Comment(s): Patient has 3 sisters one past from CVA. One has coronary artery disease with stent in 1 has no major medical problems. Patient is not having any children. Patient does not have any brothers. Medications and Allergies Home Medications Medication Instructions Recorded Confirmed Type Apixaban [Eliquis] 5 mg PO BID 03/20/18 01/31/23 History Cyanocobalamin (Vitamin B-12) 1,000 mcg PO DAILY 03/20/18 01/31/23 History [Vitamin B-12] Cyclobenzaprine [Flexeril] 10 mg PO HS PRN 03/20/18 01/31/23 History Isosorbide Mononitrate ER [Imdur] 30 mg PO DAILY 03/20/18 01/31/23 History Nitroglycerin Sl Tabs [Nitrostat] 0.4 mg SUBLINGUAL Q5M PRN 03/20/18 01/31/23 History Pravastatin Sodium [Pravachol] 20 mg PO HS 12/13/19 01/31/23 History allopurinoL [Zyloprim] 100 mg PO DAILY 12/13/19 01/31/23 History Cholecalciferol [Vitamin D3 (25 50 mcg PO DAILY 10/13/22 01/31/23 History Mcg = 1000 Iu)] Metoprolol Tartrate [Lopressor] 50 mg PO HS 10/13/22 01/31/23 History Metoprolol Tartrate [Lopressor] 100 mg PO DAILY 10/13/22 01/31/23 History Furosemide [Lasix] 40 mg PO DAILY 10/20/22 01/31/23 History Insulin Degludec [Tresiba 10 units SQ DAILY #0 10/22/22 01/31/23 Rx Flextouch U-100 Pen] HYDROcodone/APAP 10-325MG [[place] 1 tab PO Q6HR PRN 01/31/23 01/31/23 History 10-325] Allergies Allergy/AdvReac Type Severity Reaction Status Date / Time morphine Allergy Swelling Verified 01/31/23 15:27 Physical Exam Vitals: Vital Signs Temp Pulse Pulse Resp BP BP Pulse Ox 02/01/23 12:49 124 H 20 94/78 96 02/01/23 10:30 121 H 17 116/75 02/01/23 10:03 137 H 18 116/75 93 L 02/01/23 08:00 18 115/67 94 L 02/01/23 07:30 18 99/63 94 L 02/01/23 07:15 99 18 99/61 97 02/01/23 07:00 80 18 97/78 97 02/01/23 06:00 80 17 95/63 96 02/01/23 05:00 100 17 102/62 95 02/01/23 03:00 90 16 94/57 97 02/01/23 02:00 84 17 91/61 99 02/01/23 01:05 115 H 17 100/71 99 02/01/23 00:46 120 H 17 90/60 97 02/01/23 00:31 120 H 18 80/50 98 01/31/23 23:05 111 H 18 87/59 97 01/31/23 21:15 117 H 18 97/76 97 01/31/23 20:11 104 H 18 95/69 98 01/31/23 17:25 102 H 18 90/66 98 01/31/23 16:36 109 H 18 105/78 98 01/31/23 15:55 133 H 18 105/78 98 01/31/23 14:38 97.8 F 18 105/78 96 PHYSICAL EXAMINATION: Vital reviewed GENERAL: The patient is alert and oriented x3, ill-appearing HEENT: Pupils are round and equally reacting to light. EOMI. No scleral icterus. No conjunctival pallor. Normocephalic, atraumatic. No pharyngeal erythema. CARDIOVASCULAR: Irregular heart rate, no murmur, lower extremity edema, tachycardia PULMONARY: Chest is clear to auscultation, no wheezing or Ronchi ABDOMEN: Soft, distended and tender on palpation MUSCULOSKELETAL: No joint swelling or deformity. EXTREMITIES: No cyanosis, clubbing, or pedal edema. NEUROLOGICAL: Gross neurological examination did not reveal any focal deficits. SKIN: No rashes. Results CBC & Chem 7: 02/01/23 05:05 02/01/23 05:05 Labs: Abnormal Lab Results - Last 24 Hours (Table) 01/31/23 01/31/23 01/31/23 Range/Units 14:56 14:56 14:56 RBC 2.68 L (4.30-5.90) m/uL Hgb 9.4 L (13.0-17.5) gm/dL Hct 27.9 L (39.0-53.0) % MCV 103.9 H (80.0-100.0) fL MCH (25.0-35.0) pg RDW 16.0 H (11.5-15.5) % Plt Count 61 L (150-450) k/uL Lymphocytes # 0.6 L (1.0-4.8) k/uL PT 15.7 H (9.0-12.0) sec INR 1.6 H (<1.2) Sodium 136 L (137-145) mmol/L Carbon Dioxide 19 L (22-30) mmol/L BUN 36 H (9-20) mg/dL Creatinine 1.56 H (0.66-1.25) mg/dL Glucose 165 H (74-99) mg/dL Calcium 8.2 L (8.4-10.2) mg/dL Total Protein 5.7 L (6.3-8.2) g/dL Albumin 2.9 L (3.5-5.0) g/dL Amylase <30 L (30-110) U/L 02/01/23 02/01/23 Range/Units 05:05 05:05 RBC 2.71 L (4.30-5.90) m/uL Hgb 9.6 L (13.0-17.5) gm/dL Hct 28.6 L (39.0-53.0) % MCV 105.3 H (80.0-100.0) fL MCH 35.5 H (25.0-35.0) pg RDW 15.8 H (11.5-15.5) % Plt Count 59 L (150-450) k/uL Lymphocytes # 0.8 L (1.0-4.8) k/uL PT (9.0-12.0) sec INR (<1.2) Sodium 136 L (137-145) mmol/L Carbon Dioxide (22-30) mmol/L BUN 34 H (9-20) mg/dL Creatinine 1.55 H (0.66-1.25) mg/dL Glucose 128 H (74-99) mg/dL Calcium (8.4-10.2) mg/dL Total Protein 5.9 L (6.3-8.2) g/dL Albumin 3.0 L (3.5-5.0) g/dL Amylase (30-110) U/L Assessment and Plan Assessment: Assessment and plan * Diarrhea presume infectious and malignant rule out C. diff * Atrial fibrillation with rapid ventricular response * History of pancreatic cancer * Ischemic cardiomyopathy * History of coronary artery disease * Diabetes mellitus * Chronic kidney disease * For diarrhea stool culture stool C. diff ordered, CT abdomen pelvis ordered, patient nothing by mouth, continue IV Zofran continue pain control * For atrial fibrillation continue amiodarone drip, continue metoprolol continue and requests * History of pancreatic cancer oncology consulted * For diabetes continue correctional insulin, monitor for hypoglycemia * Already on a request DVT prophylaxis addressed * CODE STATUS is full code
--- NOTE | 2023-02-01 15:12 | NM ---
EXAMINATION TYPE: NM pul vent and perfuse DATE OF EXAM: 02/01/2023 COMPARISON: Chest radiograph 01/31/2023 CLINICAL INDICATION:Male, 67 years old with history of SOB, new onset arrhythmia; TECHNIQUE: Utilizing inhalation of 67.6 mCi Tc 99m DTPA aerosol and intravenous injection of 5.2 mCi of Tc 99m MAA, ventilation and perfusion images are acquired post injection in multiple projections. FINDINGS: Normal radiotracer distribution is noted in the lungs. There is no evidence of mismatched defects. IMPRESSION: No evidence for mismatched defects suggest pulmonary embolus.
[2023-02-01 16:28] LABS: Glucose,Whole Blood 135 mg/dL (70-110)
[2023-02-01] MEDS: INSULIN ASPART (NovoLOG) 100 UNIT/ML VIAL SQ SCH ×2 (16:48→20:17)
--- NOTE | 2023-02-01 17:42 | CT ---
EXAMINATION TYPE: CT abdomen pelvis wo con DATE OF EXAM: 02/01/2023 COMPARISON: 10/13/2022 HISTORY: Abdominal pain and colitis CT DLP: 556.1 mGycm Examination of the solid and hollow viscera is limited given the lack of contrast. FINDINGS: LUNG BASES: No evidence for nodule. No evidence for infiltrate. LIVER/GB: Small gallstones are noted. Biliary stent is in place. No space-occupying hepatic lesion. PANCREAS: No pancreatic mass identified. No inflammatory process seen. SPLEEN: No evidence for splenomegaly. No intrasplenic lesions seen. ADRENALS: No adrenal nodules identified. No evidence for thickening. KIDNEYS: No evidence for renal mass. Tiny nonobstructing calculi lower poles of the kidneys. No hydro nephrosis. BOWEL: Appendix has a normal appearance. No evidence of bowel obstruction. No inflammatory process. F luid distention of the colon. Correlate for diarrhea. Lymph nodes: No evidence for adenopathy greater than 1 cm. Abdominal aorta: Atheromatous changes seen. No evidence for aneurysm. Genital organs: Prostate gland is enlarged. Other: No significant abnormality. IMPRESSION: 1. Cholelithiasis with biliary stent in place. There is seen within the gallbladder lumen is a tiny a mount of pneumobilia. 2. No acute inflammatory process
[2023-02-01 20:16] LABS: Glucose,Whole Blood 145 mg/dL (70-110)
[2023-02-01] MEDS: PRAVASTATIN SODIUM 20 MG TAB PO SCH (20:24)
[2023-02-01] MEDS ORDERED: METOPROLOL TARTRATE 50 MG TAB PO SCH (21:00)
--- NOTE | 2023-02-01 22:50 | P.CONS ---
History of Present Illness - Reason for Consult Consult date: 02/01/23 thrombocytopenia Requesting physician: Foster Alvarez - Chief Complaint Palpitations, D, anorexia - History of Present Illness Mr Riley is a pleasant male pt of Dr. Rosa, initially seen in consult at [facility] on 10/21/22. Presented to ER 10/13/23 with c/o abdominal pain, that had been ongoing over the past month or so, associated with development of jaundice and decrease in appetite. CT AP 10/13/22 showed probable mass at the pancreatic head and bile duct and gallbladder dilatation. He was transferred to [facility] where an ERCP was performed showing biliary stricture and ulcerations in the ampulla. Bili stent was placed and brushings were performed, consistent with adenocarcinoma. He was readmitted to the hospital on 10/20/22 because of persistent pain. Apparently he did not get any pain medications on discharge. The patient lost about 100 pounds since about 06/13. Jaundice had improved since stent placement. Started on [place] 10-325, with reasonable pain control. Staging PET scan 10/28/22, showed uptake in the pancreatic mass but no evidence of metastatic disease. EUS on 11/17, revealed a stent, bile duct stone 4 mm above the stent, 3 enlarged peripancreatic nodes with the largest 7 mm. The pancreatic head mass was identified, measuring 3.6 x 2.9 cm, without evidence of involvement of the SMA, celiac trunk, portal vein or superior mesenteric vein. Non-bleeding duodenal ulcer was observed. Referred to surgical Oncology Dr. Gallo, and was seen on 11/23/22. He was seen for his first office visit on 11/24/22. Neoadjuvant treatment recommended, mFOLFIRINOX started, he is s/p 3 cycles with GCSF. He has had progressive SE since starting. He is admitted with palpitations, diarrhea, anorexia, mouth sores. He has abd pain, swelling in his legs. Labs show Hgb 9.6, plt 59K, normal WBC, cr elevated 1.55. Review of Systems 10 point ROS is neg except as stated in HPI Past Medical History Past Medical History: Atrial Fibrillation, Chest Pain / Angina, Diabetes Mellitus, Hyperlipidemia, Hypertension, Musculoskeletal Disorder, Osteoarthritis (OA) Additional Past Medical History / Comment(s): BACK PAIN R/T OLD INJURY. EDEMA FEET/ANKLES. kidney stones, Recent diagnosis of Pancreatic tumor. Patient has not had follow-up with Oncologist yet and was readmitted for increased pain. History of Any Multi-Drug Resistant Organisms: None Reported Past Surgical History: Back Surgery, Heart Catheterization, Heart Catheterization With Stent, Orthopedic Surgery Additional Past Surgical History / Comment(s): R Knee scope; Colonoscopy; Deviated Septum Repair. BACK SURG.X2 PTCA W/ STENTS X2. CARDIOVERSION 03/28/18. ERCP last week with Dr. Morfin out of [facility] with stent placement. Past Anesthesia/Blood Transfusion Reactions: No Reported Reaction Date of Last Stent Placement:: 1997 Past Psychological History: No Psychological Hx Reported Smoking Status: Former smoker Past Alcohol Use History: None Reported Past Drug Use History: None Reported - Past Family History Mother Family Medical History: Dementia, Memory Impairment Additional Family Medical History / Comment(s): Mother in her 80s r/t advanced dementia. Father Family Medical History: Myocardial Infarction ([place]) Additional Family Medical History / Comment(s): Father from coronary artery disease. Sister(s) Additional Family Medical History / Comment(s): Patient has 3 sisters one past from CVA. One has coronary artery disease with stent in 1 has no major medical problems. Patient is not having any children. Patient does not have any brothers. Medications and Allergies Home Medications Medication Instructions Recorded Confirmed Type Apixaban [Eliquis] 5 mg PO BID 03/20/18 01/31/23 History Cyanocobalamin (Vitamin B-12) 1,000 mcg PO DAILY 03/20/18 01/31/23 History [Vitamin B-12] Cyclobenzaprine [Flexeril] 10 mg PO HS PRN 03/20/18 01/31/23 History Isosorbide Mononitrate ER [Imdur] 30 mg PO DAILY 03/20/18 01/31/23 History Nitroglycerin Sl Tabs [Nitrostat] 0.4 mg SUBLINGUAL Q5M PRN 03/20/18 01/31/23 History Pravastatin Sodium [Pravachol] 20 mg PO HS 12/13/19 01/31/23 History allopurinoL [Zyloprim] 100 mg PO DAILY 12/13/19 01/31/23 History Cholecalciferol [Vitamin D3 (25 50 mcg PO DAILY 10/13/22 01/31/23 History Mcg = 1000 Iu)] Metoprolol Tartrate [Lopressor] 50 mg PO HS 10/13/22 01/31/23 History Metoprolol Tartrate [Lopressor] 100 mg PO DAILY 10/13/22 01/31/23 History Furosemide [Lasix] 40 mg PO DAILY 10/20/22 01/31/23 History Insulin Degludec [Tresiba 10 units SQ DAILY #0 10/22/22 01/31/23 Rx Flextouch U-100 Pen] HYDROcodone/APAP 10-325MG [[place] 1 tab PO Q6HR PRN 01/31/23 01/31/23 History 10-325] Allergies Allergy/AdvReac Type Severity Reaction Status Date / Time morphine Allergy Swelling Verified 01/31/23 15:27 Physical Exam Vitals: Vital Signs Temp Pulse Pulse Resp BP BP Pulse Ox 02/01/23 10:30 121 H 17 116/75 02/01/23 10:03 137 H 18 116/75 93 L 02/01/23 08:00 18 115/67 94 L 02/01/23 07:30 18 99/63 94 L 02/01/23 07:15 99 18 99/61 97 02/01/23 07:00 80 18 97/78 97 02/01/23 06:00 80 17 95/63 96 02/01/23 05:00 100 17 102/62 95 02/01/23 03:00 90 16 94/57 97 02/01/23 02:00 84 17 91/61 99 02/01/23 01:05 115 H 17 100/71 99 02/01/23 00:46 120 H 17 90/60 97 02/01/23 00:31 120 H 18 80/50 98 01/31/23 23:05 111 H 18 87/59 97 01/31/23 21:15 117 H 18 97/76 97 01/31/23 20:11 104 H 18 95/69 98 01/31/23 17:25 102 H 18 90/66 98 01/31/23 16:36 109 H 18 105/78 98 01/31/23 15:55 133 H 18 105/78 98 01/31/23 14:38 97.8 F 18 105/78 96 - Constitutional General appearance: average body habitus, cooperative, mild distress - EENT Eyes: anicteric sclerae, EOMI ENT: hearing grossly normal, pharyngeal erythema - Neck Neck: no lymphadenopathy - Respiratory Respiratory: bilateral: CTA - Cardiovascular Rhythm: regular Heart sounds: normal: S1, S2 Abnormal Heart Sounds: no systolic murmur, no diastolic murmur, no rub, no S3 Gallop, no S4 Gallop, no click, no other leg Peripheral Edema: bilateral: 2+, Pitting, Other (bronzing and thickened skin on the BLE) - Gastrointestinal General gastrointestinal: no absent bowel sounds, no decreased bowel sounds, distended, no hepatomegaly, no hyperactive bowel sounds, normal bowel sounds, no organomegaly, no rigid, no scaphoid, no soft, no splenomegaly, tenderness, no umbilical hernia, no ventral hernia Localized gastrointestinal: tender: RLQ, epigastric periumbilical - Integumentary Integumentary: pale - Neurologic Neurologic: CNII-XII intact - Musculoskeletal Musculoskeletal: strength equal bilaterally - Psychiatric Psychiatric: A&O x's 3, appropriate affect, intact judgment & insight Results CBC & Chem 7: 02/01/23 05:05 02/01/23 05:05 Labs: Abnormal Lab Results - Last 24 Hours (Table) 01/31/23 01/31/23 01/31/23 Range/Units 14:56 14:56 14:56 RBC 2.68 L (4.30-5.90) m/uL Hgb 9.4 L (13.0-17.5) gm/dL Hct 27.9 L (39.0-53.0) % MCV 103.9 H (80.0-100.0) fL MCH (25.0-35.0) pg RDW 16.0 H (11.5-15.5) % Plt Count 61 L (150-450) k/uL Lymphocytes # 0.6 L (1.0-4.8) k/uL PT 15.7 H (9.0-12.0) sec INR 1.6 H (<1.2) Sodium 136 L (137-145) mmol/L Carbon Dioxide 19 L (22-30) mmol/L BUN 36 H (9-20) mg/dL Creatinine 1.56 H (0.66-1.25) mg/dL Glucose 165 H (74-99) mg/dL Calcium 8.2 L (8.4-10.2) mg/dL Total Protein 5.7 L (6.3-8.2) g/dL Albumin 2.9 L (3.5-5.0) g/dL Amylase <30 L (30-110) U/L 02/01/23 02/01/23 Range/Units 05:05 05:05 RBC 2.71 L (4.30-5.90) m/uL Hgb 9.6 L (13.0-17.5) gm/dL Hct 28.6 L (39.0-53.0) % MCV 105.3 H (80.0-100.0) fL MCH 35.5 H (25.0-35.0) pg RDW 15.8 H (11.5-15.5) % Plt Count 59 L (150-450) k/uL Lymphocytes # 0.8 L (1.0-4.8) k/uL PT (9.0-12.0) sec INR (<1.2) Sodium 136 L (137-145) mmol/L Carbon Dioxide (22-30) mmol/L BUN 34 H (9-20) mg/dL Creatinine 1.55 H (0.66-1.25) mg/dL Glucose 128 H (74-99) mg/dL Calcium (8.4-10.2) mg/dL Total Protein 5.9 L (6.3-8.2) g/dL Albumin 3.0 L (3.5-5.0) g/dL Amylase (30-110) U/L Chest x-ray: report reviewed Assessment and Plan (1) Atrial fibrillation with RVR Current Visit: Yes Status: Acute Priority: High Code(s): I48.91 - UNSPECIFIED ATRIAL FIBRILLATION SNOMED Code(s): 379974760072930 (2) Bicytopenia Current Visit: Yes Status: Acute Code(s): D75.89 - OTHER SPECIFIED DISEASES OF BLOOD AND BLOOD-FORMING ORGANS SNOMED Code(s): 58744900 (3) Diarrhea Current Visit: Yes Status: Acute Priority: High Code(s): R19.7 - DIARRHEA, UNSPECIFIED SNOMED Code(s): 01941675 (4) Intractable abdominal pain Current Visit: Yes Status: Acute Priority: High Code(s): R10.9 - UNSPECIFIED ABDOMINAL PAIN SNOMED Code(s): 32427820 Plan: A-fib -New onset -VQ to assess for possible PE -legs swollen and painful, doppler of BLE -Cardiology consulted -on amioadrone -on eliquis on admit anemia and thrombocytopenia -2/2 chemo -cont anticoagulation as long as plt >50k -transfuse for Hgb,7, plt <50K so pt can remain on anticoagulation Diarrhea -suspect an enteritis based on physical exam findings -stool studies, c-diff -IV fluids ordered -NPO other then ice chips and meds Kools for oral irritation labs daily follow up daily pancreatic adenocarcinoma -s/p 3 cycles of neoadjuvant chemo -dose adjustments will be necessary for pt to continue to tolerate treatment to get to surgery Attests: I have seen and examined pt, performed H&P, developed impression and plan of care. Discussed with dictator. Agree with documentation, dictated as a scribe.
[2023-02-02 01:28] LABS: Glucose,Whole Blood 135 mg/dL (70-110)
[2023-02-02 06:19] LABS: Glucose,Whole Blood 100 mg/dL (70-110)
[2023-02-02] MEDS: INSULIN ASPART (NovoLOG) 100 UNIT/ML VIAL SQ SCH ×4 (06:27→20:19)
[2023-02-02] MEDS: SODIUM CHLORIDE 0.9% 1,000 ML IV SCH (07:40)
[2023-02-02] MEDS: PANTOPRAZOLE 40 MG/10 ML VIAL IV SCH (07:54)
[2023-02-02] MEDS: METOPROLOL TARTRATE 50 MG TAB PO SCH ×2 (07:54→21:21)
[2023-02-02] MEDS: APIXABAN 5 MG TAB PO SCH ×2 (07:54→21:21)
[2023-02-02] MEDS: HYDROcodone/APAP 10-325MG 1 EACH TAB PO PRN ×3 (07:55→21:20)
[2023-02-02] MEDS ORDERED: AMIODARONE 200 MG TAB PO SCH (10:00)
[2023-02-02] MEDS ORDERED: DIGOXIN 250 MCG/ML 2 ML AMP IVP ONE (10:15)
[2023-02-02] MEDS: ISOSORBIDE MONONITRATE ER 30 MG TAB.ER.24H PO SCH (10:32)
[2023-02-02 11:33] LABS: HCT 29.1 % (39.0-53.0); HGB 9.7 gm/dL (13.0-17.5); MCH 35.4 pg (25.0-35.0); MCHC 33.4 g/dL (31.0-37.0); MCV 105.9 fL (80.0-100.0); Macrocytosis Moderate; Mean Platelet Volume 10.5; RBC 2.75 m/uL (4.30-5.90); RDW 15.8 % (11.5-15.5); WBC 2.2 k/uL (3.8-10.6)
[2023-02-02 11:35] LABS: Platelet Count 59 k/uL (150-450)
[2023-02-02 11:44] LABS: Glucose,Whole Blood 105 mg/dL (70-110)
[2023-02-02 11:47] LABS: Calcium 8.6 mg/dL (8.4-10.2); Magnesium 1.7 mg/dL (1.6-2.3); Potassium 4.7 mmol/L (3.5-5.1)
--- NOTE | 2023-02-02 13:51 | P.PN ---
Subjective Progress Note Date: 02/02/23 67 year-old gentleman with past medical history significant for coronary artery disease history of PCI, atrial fibrillation, cardiomyopathy with ejection fraction of 35%, peripheral vascular disease, chronic kidney disease, hypertension and hyperlipidemia presented to the emergency department with complaints of shortness of breath and abdominal pain. * Patient had also complained of ongoing diarrhea for 4 days. Patient said his last chemotherapy was one week ago and does get diarrhea post-chemo. * Patient denied associated fever, chills * While in ER initial workup included a chest x-ray which was negative, CBC obtained showed white cell count of 4, hemoglobin 9.6, hematocrit of 28, platelet count of 59. Basic metabolic panel showed sodium 136 potassium 4.8 BUN 34 creatinine 1.55 * Patient was noted to have A. fib with RVR and was started on amiodarone drip with consultations obtained from cardiology 02/02. Patient seen and examined. Still having diarrhea. Complaining of dizziness. Denies any shortness of breath. Vital signs stable REVIEW OF SYSTEMS: CONSTITUTIONAL: No fever, no malaise,. CARDIOVASCULAR: No chest pain, no palpitations, no syncope. PULMONARY: No shortness of breath, no cough, GASTROINTESTINAL: no vomiting, no abdominal pain. NEUROLOGICAL: No headaches, no weakness, PHYSICAL EXAMINATION: GENERAL: The patient is alert and oriented x3, not in any acute distress. Well developed, well nourished. HEENT: Pupils are round and equally reacting to light. EOMI. No scleral icterus. No conjunctival pallor. Normocephalic, atraumatic. No pharyngeal erythema. No thyromegaly. CARDIOVASCULAR: S1 and S2 present. No murmurs, rubs, or gallops. PULMONARY: Chest is clear to auscultation, no wheezing or crackles. ABDOMEN: Soft, nontender, nondistended, normoactive bowel sounds. No palpable organomegaly. MUSCULOSKELETAL: No joint swelling or deformity. EXTREMITIES: No cyanosis, clubbing, or pedal edema. NEUROLOGICAL: Gross neurological examination did not reveal any focal deficits. SKIN: No rashes. Assessment and plan * Diarrhea presume infectious and malignant rule out C. diff * Atrial fibrillation with rapid ventricular response * History of pancreatic cancer * Ischemic cardiomyopathy * History of coronary artery disease * Diabetes mellitus * Chronic kidney disease Plan; Monitor vital signs * Monitor CBC * Monitor CMP * CT abdomen done showed cholelithiasis with biliary stent in place. No acute process noted * V/Q scan negative for PE * Ultrasound of lower extremities negative for DVT * Continue Lopressor and Eliquis * Follow-up on hematology recommendations * Follow-up in cardiology recommendations * Objective - Vital Signs Vital signs: Vital Signs Temp 98.0 F 02/02/23 07:20 Pulse 116 H 02/02/23 07:50 Resp 18 02/02/23 07:20 BP 107/83 02/02/23 07:50 Pulse Ox 100 02/02/23 07:20 FiO2 Intake & Output 02/01/23 02/02/23 02/02/23 18:59 06:59 18:59 Intake Total 250 Balance 250 Intake: Intake, IV Titration 250 Amount Amiodarone 450 mg In 250 Dextrose 5% in Water 250 ml @ 0.5 MG/MIN 16.667 mls/hr IV .Q15H [facility] Rx#: [id number] Other: Voiding Method Toilet # Voids 2 # Bowel Movements 0 1 - Labs CBC & Chem 7: 02/02/23 10:51 02/02/23 10:51 Labs: Abnormal Lab Results - Last 24 Hours (Table) 02/01/23 02/01/23 02/02/23 Range/Units 16:24 20:15 01:27 POC Glucose (mg/dL) 135 H 145 H 135 H (70-110) mg/dL
--- NOTE | 2023-02-02 14:23 | P.PN ---
Subjective Progress Note Date: 02/02/23 In f/u today pt has oral irritation, his breathing is less labored compared to yesterday, no N,V, he cont to have diarrhea, specimen collected. Objective - Vital Signs Vital signs: Vital Signs Temp 97.5 F L 02/02/23 11:50 Pulse 90 02/02/23 11:50 Resp 18 02/02/23 11:50 BP 107/74 02/02/23 11:50 Pulse Ox 100 02/02/23 11:50 FiO2 Intake & Output 02/01/23 02/02/23 02/02/23 18:59 06:59 18:59 Intake Total 250 Balance 250 Intake: Intake, IV Titration 250 Amount Amiodarone 450 mg In 250 Dextrose 5% in Water 250 ml @ 0.5 MG/MIN 16.667 mls/hr IV .Q[facility]H [facility] Rx#: [id number] Other: Voiding Method Toilet Toilet # Voids 2 # Bowel Movements 0 1 - Constitutional General appearance: Present: average body habitus, cooperative, no acute distress - EENT Eyes: Present: anicteric sclerae, EOMI ENT: Present: hearing grossly normal, normal oropharynx - Respiratory Respiratory: bilateral: CTA - Cardiovascular Rhythm: irregularly irregular Heart sounds: normal: S1, S2 Abnormal Heart Sounds: Absent: systolic murmur, diastolic murmur, rub, S3 Gallop, S4 Gallop, click, other - Peripheral edema leg Peripheral Edema: bilateral: 1+ (better then yesterday) - Neurologic Neurologic: Present: CNII-XII intact - Musculoskeletal Musculoskeletal: Present: strength equal bilaterally - Psychiatric Psychiatric: Present: A&O x's 3, appropriate affect, intact judgment & insight - Labs CBC & Chem 7: 02/02/23 10:51 02/02/23 10:51 Labs: Abnormal Lab Results - Last 24 Hours (Table) 02/01/23 02/01/23 02/02/23 Range/Units 16:24 20:15 01:27 WBC (3.8-10.6) k/uL RBC (4.30-5.90) m/uL Hgb (13.0-17.5) gm/dL Hct (39.0-53.0) % MCV (80.0-100.0) fL MCH (25.0-35.0) pg RDW (11.5-15.5) % Plt Count (150-450) k/uL Chloride (98-107) mmol/L Carbon Dioxide (22-30) mmol/L BUN (9-20) mg/dL Creatinine (0.66-1.25) mg/dL Glucose (74-99) mg/dL POC Glucose (mg/dL) 135 H 145 H 135 H (70-110) mg/dL 02/02/23 02/02/23 Range/Units 10:51 10:51 WBC 2.2 L (3.8-10.6) k/uL RBC 2.75 L (4.30-5.90) m/uL Hgb 9.7 L (13.0-17.5) gm/dL Hct 29.1 L (39.0-53.0) % MCV 105.9 H (80.0-100.0) fL MCH 35.4 H (25.0-35.0) pg RDW 15.8 H (11.5-15.5) % Plt Count 59 L (150-450) k/uL Chloride 108 H (98-107) mmol/L Carbon Dioxide 21 L (22-30) mmol/L BUN 28 H (9-20) mg/dL Creatinine 1.45 H (0.66-1.25) mg/dL Glucose 101 H (74-99) mg/dL POC Glucose (mg/dL) (70-110) mg/dL - Imaging and Cardiology CT scan - abdomen: report reviewed CT scan - pelvis: report reviewed Venous US: report reviewed VQ scan results reviewed Assessment and Plan (1) Atrial fibrillation with RVR Current Visit: Yes Status: Acute Priority: High Code(s): I48.91 - UNSPECIFIED ATRIAL FIBRILLATION SNOMED Code(s): 337815157097600 (2) Bicytopenia Current Visit: Yes Status: Acute Code(s): D75.89 - OTHER SPECIFIED DISEASES OF BLOOD AND BLOOD-FORMING ORGANS SNOMED Code(s): 78952125 (3) Diarrhea Current Visit: Yes Status: Acute Priority: High Code(s): R19.7 - DIARRHEA, UNSPECIFIED SNOMED Code(s): 06218844 (4) Intractable abdominal pain Current Visit: Yes Status: Acute Priority: High Code(s): R10.9 - UNSPECIFIED ABDOMINAL PAIN SNOMED Code(s): 55966229 Plan: A-fib -New onset -VQ low probability for PE -legs swollen and painful, doppler of BLE is neg for DVT -Cardiology following -on eliquis on admit anemia and thrombocytopenia -2/2 chemo -cont anticoagulation as long as plt >50k -transfuse for Hgb,7, plt <50K so pt can remain on anticoagulation -counts stable today Diarrhea -persists -suspect an enteritis based on physical exam findings -stool studies, c-diff pending -IV fluids -NPO other then ice chips and meds Kools and salt and soda for oral irritation labs daily follow up daily pancreatic adenocarcinoma -s/p 3 cycles of neoadjuvant chemo -dose adjustments will be necessary for pt to tolerate more treatment to get to surgery -follow up before next chemo to assess readiness to resume Tx
--- NOTE | 2023-02-02 15:10 | P.PN ---
Subjective Progress Note Date: 02/02/23 History of present illness: This is a 67-year-old male patient of Dr. FELI Michael with past medical history of coronary artery disease with prior stent of the RCA in 1996, persistent atrial fibrillation with previous 2 attempts for cardioversion were unsuccessful, ischemic cardiomyopathy with EF of 30-35%, moderate mitral regurgitation, chronic kidney disease, hypertension, hyperlipidemia, diabetes, peripheral vascular disease, family history of premature coronary artery disease, nicotine dependence. Patient was last seen in the office by Dr. Carter for evaluation of ischemic Ligament office May 2022 for evaluation of ischemic cardiomyopathy and plan at that time was for single-chamber ICD implantation for primary prevention of STD. Subsequently, in September 2022, patient was newly diagnosed with pancreatic cancer. He is currently undergoing chemotherapy at under Dr. Rosa every other week. Patient presented to [facility] emergency center due to shortness of breath which is been chronic but worsening and also heartbeat that seems to go slow and then fast. Patient has n ot been eating or drinking very much for the past week as his mouth is painful. He also has chronic abdominal pain. He also states he has had a number of falls last one was on Monday with no injury, no loss of consciousness. He states he feels dizzy at the time when he falls. Patient has been started on amiodarone drip. EKG atrial fibrillation 114 bpm Chest x-ray: No acute pulmonary disease WBC 4, hemoglobin 9.6, platelet count 59. Sodium 136, potassium 4.8, BUN 34 creatinine 1.55. Blood sugar 128. Liver function tests within normal limits. ProBNP 10,200. Troponin negative 1. TSH 2.67. Lipase 27. D-dimer 0.25. Home cardiac medications: Eliquis 5 mg twice daily, Lasix 40 mg daily, Imdur 30 mg daily, Lopressor 100 mg in the morning and 50 mg in the evening, Nitrostat as needed, pravastatin 20 g at bedtime Echocardiogram 11/2021 EF 35%, inferior hypokinesia, moderate pulmonary hypertension, moderate to severe mitral regurgitation, moderate mitral valve calcification. Unsuccessful cardioversion 05/2018 and 03/2018 Lexiscan stress test 08/11 2116. Her wall defect with no reversible ischemia, EF 30% 02/02 Patient is seen today on the cardiac stepdown unit. He states his breathing is better from yesterday. He is currently off IV amiodarone as it was apparently discontinued during the night due to hypotension. Now his blood pressure is 107 systolic. He did drop down to a systolic of 80s and 90s. Imdur will be discontinued. Telemetry is atrial fibrillation between 80 and 120. VQ scan was low probability for PE and bilateral lower extremity Doppler was negative for DVT Physical examination: Gen: This is a 67-year-old female. Patient is resting in bed and appears to be in no acute distress. He does appear to be unwell. VS: reviewed HEENT: Head is atraumatic, normocephalic. Pupils equal, round. Sclerae is anicteric. NECK: Supple. No JVD. . LUNGS: Clear to auscultation. No wheezes or rhonchi. No intercostal retractions. HEART: Regular rate and rhythm. Systolic murmur. ABDOMEN: Soft No tenderness. EXTREMITIES: No pedal edema. No calf tenderness. NEUROLOGICAL: Patient is awake, alert and oriented x3. Assessment: A. fib with RVR Ischemic cardiomyopathy Coronary artery disease with prior stent of the RCA Persistent atrial fibrillation Moderate mitral regurgitation Chronic kidney disease Hypertension Hyperlipidemia Diabetes Peripheral vascular disease Pancreatic cancer Diarrhea Thrombocytopenia Plan: Discontinue amiodarone Increase Lopressor to 100 mg twice daily Start patient on digoxin 250 g daily Continue eliquis 5 mg twice daily Discontinue Imdur Continue telemetry monitoring Prognosis guarded Further recommendations to follow based upon clinical course Nurse practitioner note has been reviewed, I agree with documented findings and plan of care. Patient was seen and examined. Objective - Vital Signs Vital signs: Vital Signs Temp 97.5 F L 02/02/23 11:50 Pulse 90 02/02/23 11:50 Resp 18 02/02/23 11:50 BP 107/74 02/02/23 11:50 Pulse Ox 100 02/02/23 11:50 FiO2 Intake & Output 02/01/23 02/02/23 02/02/23 18:59 06:59 18:59 Intake Total 250 Balance 250 Intake: Intake, IV Titration 250 Amount Amiodarone 450 mg In 250 Dextrose 5% in Water 250 ml @ 0.5 MG/MIN 16.667 mls/hr IV .Q15H [facility] Rx#: [id number] Other: Voiding Method Toilet Toilet # Voids 2 # Bowel Movements 0 1 - Labs CBC & Chem 7: 02/02/23 10:51 02/02/23 10:51 Labs: Abnormal Lab Results - Last 24 Hours (Table) 02/01/23 02/01/23 02/02/23 Range/Units 16:24 20:15 01:27 WBC (3.8-10.6) k/uL RBC (4.30-5.90) m/uL Hgb (13.0-17.5) gm/dL Hct (39.0-53.0) % MCV (80.0-100.0) fL MCH (25.0-35.0) pg RDW (11.5-15.5) % Plt Count (150-450) k/uL Chloride (98-107) mmol/L Carbon Dioxide (22-30) mmol/L BUN (9-20) mg/dL Creatinine (0.66-1.25) mg/dL Glucose (74-99) mg/dL POC Glucose (mg/dL) 135 H 145 H 135 H (70-110) mg/dL 02/02/23 02/02/23 Range/Units 10:51 10:51 WBC 2.2 L (3.8-10.6) k/uL RBC 2.75 L (4.30-5.90) m/uL Hgb 9.7 L (13.0-17.5) gm/dL Hct 29.1 L (39.0-53.0) % MCV 105.9 H (80.0-100.0) fL MCH 35.4 H (25.0-35.0) pg RDW 15.8 H (11.5-15.5) % Plt Count 59 L (150-450) k/uL Chloride 108 H (98-107) mmol/L Carbon Dioxide 21 L (22-30) mmol/L BUN 28 H (9-20) mg/dL Creatinine 1.45 H (0.66-1.25) mg/dL Glucose 101 H (74-99) mg/dL POC Glucose (mg/dL) (70-110) mg/dL
[2023-02-02 16:27] LABS: Glucose,Whole Blood 71 mg/dL (70-110)
[2023-02-02] MEDS: MAG HYDROX/AL HYDROX/SIMETH 30 ML, LIDOCAINE VISCOUS 2% 30 ML, diphenhydrAMINE ELIXIR 7... PO SCH ×8 (16:31→21:22)
[2023-02-02] MEDS: SALT AND SODA MOUTHWASH 1,000 ML PO SCH ×2 (16:54→21:26)
[2023-02-02 20:15] LABS: Glucose,Whole Blood 102 mg/dL (70-110)
[2023-02-02] MEDS: PRAVASTATIN SODIUM 20 MG TAB PO SCH (21:21)
[2023-02-03] MEDS: SALT AND SODA MOUTHWASH 1,000 ML PO SCH ×6 (00:20→23:01)
[2023-02-03 02:13] LABS: Glucose,Whole Blood 100 mg/dL (70-110)
[2023-02-03 06:18] LABS: Glucose,Whole Blood 76 mg/dL (70-110)
[2023-02-03] MEDS: INSULIN ASPART (NovoLOG) 100 UNIT/ML VIAL SQ SCH ×4 (06:46→21:19)
[2023-02-03] MEDS: SODIUM CHLORIDE 0.9% 1,000 ML IV SCH (06:46)
[2023-02-03] MEDS: PANTOPRAZOLE 40 MG/10 ML VIAL IV SCH (08:22)
[2023-02-03] MEDS: CHOLECALCIFEROL 25 MCG (1000 IU) TABLET PO SCH (08:23)
[2023-02-03] MEDS: CYANOCOBALAMIN 500 MCG TAB PO SCH (08:23)
[2023-02-03] MEDS: DIGOXIN 250 MCG TAB PO SCH (08:23)
[2023-02-03] MEDS: APIXABAN 5 MG TAB PO SCH ×2 (08:23→20:31)
[2023-02-03] MEDS: METOPROLOL TARTRATE 50 MG TAB PO SCH ×2 (08:23→20:31)
[2023-02-03] MEDS: MAG HYDROX/AL HYDROX/SIMETH 30 ML, LIDOCAINE VISCOUS 2% 30 ML, diphenhydrAMINE ELIXIR 7... PO SCH ×12 (08:24→20:30)
[2023-02-03] MEDS: HYDROcodone/APAP 10-325MG 1 EACH TAB PO PRN (08:34)
[2023-02-03 09:41] LABS: Anisocytosis Slight; HCT 24.8 % (39.0-53.0); MCH 34.1 pg (25.0-35.0); MCV 103.3 fL (80.0-100.0); Macrocytosis Moderate; Mean Platelet Volume 10.8; Platelet Count 42 k/uL (150-450); RDW 16.6 % (11.5-15.5); WBC 2.4 k/uL (3.8-10.6)
[2023-02-03 09:43] LABS: HGB 8.2 gm/dL (13.0-17.5)
[2023-02-03 10:27] LABS: Cryptosporidium Antigen Negative (Negative)
[2023-02-03 10:54] LABS: Eosinophils # (M) 0.07 k/uL (0-0.7); Lymphocytes # (M) 0.62 k/uL (1.0-4.8); Monocytes # (M) 0.29 k/uL (0-1.0); Neutrophils # (M) 1.42 k/uL (1.3-7.7); Neutrophils % (M) 59 %; Nucleated Red Blood Cells 0 /100 WBC (0-0); Total Cells Counted 100
[2023-02-03 10:55] LABS: Polychromasia Present
[2023-02-03 11:34] LABS: Albumin 2.3 g/dL (3.5-5.0); Calcium 8.1 mg/dL (8.4-10.2); Potassium 3.9 mmol/L (3.5-5.1); Total Bilirubin 0.7 mg/dL (0.2-1.3); Total Protein 4.9 g/dL (6.3-8.2)
[2023-02-03 11:42] LABS: Glucose,Whole Blood 89 mg/dL (70-110)
[2023-02-03] MEDS ORDERED: LOPERAMIDE 2 MG CAP PO STA (12:48)
[2023-02-03] MEDS ORDERED: LOPERAMIDE 2 MG CAP PO PRN (12:48)
[2023-02-03 13:28] LABS: Glucose,Whole Blood 67 mg/dL (70-110)
[2023-02-03 13:38] LABS: Glucose,Whole Blood 77 mg/dL (70-110)
--- NOTE | 2023-02-03 13:43 | P.PN ---
Subjective Progress Note Date: 02/03/23 67 year-old gentleman with past medical history significant for coronary artery disease history of PCI, atrial fibrillation, cardiomyopathy with ejection fraction of 35%, peripheral vascular disease, chronic kidney disease, hypertension and hyperlipidemia presented to the emergency department with complaints of shortness of breath and abdominal pain. * Patient had also complained of ongoing diarrhea for 4 days. Patient said his last chemotherapy was one week ago and does get diarrhea post-chemo. * Patient denied associated fever, chills * While in ER initial workup included a chest x-ray which was negative, CBC obtained showed white cell count of 4, hemoglobin 9.6, hematocrit of 28, platelet count of 59. Basic metabolic panel showed sodium 136 potassium 4.8 BUN 34 creatinine 1.55 * Patient was noted to have A. fib with RVR and was started on amiodarone drip with consultations obtained from cardiology 02/02. Patient seen and examined. Still having diarrhea. Complaining of dizziness. Denies any shortness of breath. Vital signs stable 02/03. Patient seen and examined. States he does not feel well today. Comparing of dizziness. Complaining of swelling of lower extremities. Still h aving diarrhea REVIEW OF SYSTEMS: CONSTITUTIONAL: No fever, no malaise,. CARDIOVASCULAR: No chest pain, no palpitations, no syncope. PULMONARY: No shortness of breath, no cough, GASTROINTESTINAL: no vomiting, no abdominal pain. NEUROLOGICAL: No headaches, no weakness, PHYSICAL EXAMINATION: GENERAL: The patient is alert and oriented x3, not in any acute distress. Well developed, well nourished. HEENT: Pupils are round and equally reacting to light. EOMI. No scleral icterus. No conjunctival pallor. Normocephalic, atraumatic. No pharyngeal erythema. No thyromegaly. CARDIOVASCULAR: S1 and S2 present. No murmurs, rubs, or gallops. PULMONARY: Chest is clear to auscultation, no wheezing or crackles. ABDOMEN: Soft, nontender, nondistended, normoactive bowel sounds. No palpable organomegaly. MUSCULOSKELETAL: No joint swelling or deformity. EXTREMITIES: 2+ pitting edema of lower extremities bilaterally NEUROLOGICAL: Gross neurological examination did not reveal any focal deficits. SKIN: No rashes. Assessment and plan * Diarrhea presume infectious and malignant rule out C. diff * Atrial fibrillation with rapid ventricular response * History of pancreatic cancer * Ischemic cardiomyopathy * History of coronary artery disease * Diabetes mellitus * Chronic kidney disease * Moderate mitral regurg * Hypertension * Hyperlipidemia Plan; Monitor vital signs * Monitor CBC * Monitor CMP * CT abdomen done showed cholelithiasis with biliary stent in place. No acute process noted * V/Q scan negative for PE * Ultrasound of lower extremities negative for DVT * Continue Lopressor and Eliquis * Continue digoxin * Imdur discontinued because of hypotension * Follow-up on hematology recommendations * Follow-up in cardiology recommendations Objective - Vital Signs Vital signs: Vital Signs Temp 98.0 F 02/03/23 08:18 Pulse 85 02/03/23 08:18 Resp 18 02/03/23 08:18 BP 106/70 02/03/23 08:18 Pulse Ox 97 02/03/23 08:18 FiO2 Intake & Output 02/02/23 02/03/23 02/03/23 18:59 06:59 18:59 Other: Voiding Method Toilet Toilet # Voids 2 # Bowel Movements 1 - Labs CBC & Chem 7: 02/03/23 08:18 02/03/23 08:18 Labs: Abnormal Lab Results - Last 24 Hours (Table) 02/02/23 02/02/23 Range/Units 10:51 10:51 WBC 2.2 L (3.8-10.6) k/uL RBC 2.75 L (4.30-5.90) m/uL Hgb 9.7 L (13.0-17.5) gm/dL Hct 29.1 L (39.0-53.0) % MCV 105.9 H (80.0-100.0) fL MCH 35.4 H (25.0-35.0) pg RDW 15.8 H (11.5-15.5) % Plt Count 59 L (150-450) k/uL Chloride 108 H (98-107) mmol/L Carbon Dioxide 21 L (22-30) mmol/L BUN 28 H (9-20) mg/dL Creatinine 1.45 H (0.66-1.25) mg/dL Glucose 101 H (74-99) mg/dL
--- NOTE | 2023-02-03 14:32 | P.PN ---
Subjective Progress Note Date: 02/03/23 Principal diagnosis: hx pancreatic cancer, thromobocytopenia At today's visit patient is resting in bed. He reports that he is not feeling well today. He reports abdominal pain and diarrhea. He is also complaining of generalized weakness, BLE pain, dizziness and mouth sores. He was given cools solution but reports only minimal improvement. He is NPO with exception of ice chips/popsicles and reports that this helps soothe the mouth sores. No other reported complaints at this time Objective - Vital Signs Vital signs: Vital Signs Temp 98.0 F 02/03/23 08:18 Pulse 85 02/03/23 12:30 Resp 18 02/03/23 12:30 BP 85/52 02/03/23 12:00 Pulse Ox 95 02/03/23 12:00 FiO2 Intake & Output 02/02/23 02/03/23 02/03/23 18:59 06:59 18:59 Other: Voiding Method Toilet Toilet Toilet # Voids 2 # Bowel Movements 1 - Constitutional General appearance: Present: average body habitus, no acute distress - EENT Eyes: Present: anicteric sclerae, EOMI ENT: Present: hearing grossly normal - Respiratory Respiratory: bilateral: CTA - Cardiovascular Rhythm: irregularly irregular Heart sounds: normal: S1, S2 Abnormal Heart Sounds: Absent: systolic murmur, diastolic murmur, rub, S3 Gallop, S4 Gallop, click, other - Peripheral edema leg Peripheral Edema: bilateral: 1+ - Gastrointestinal General gastrointestinal: Present: soft, tenderness Localized gastrointestinal: tender: diffuse (L>R) - Integumentary Integumentary: Present: pale - Neurologic Neurologic Comment(s): Grossly intact - Musculoskeletal Musculoskeletal: Present: strength equal bilaterally - Psychiatric Psychiatric: Present: A&O x's 3, intact judgment & insight - Labs CBC & Chem 7: 02/03/23 08:18 02/03/23 08:18 Labs: Abnormal Lab Results - Last 24 Hours (Table) 02/03/23 02/03/23 02/03/23 Range/Units 08:18 08:18 13:16 WBC 2.4 L (3.8-10.6) k/uL RBC 2.40 L (4.30-5.90) m/uL Hgb 8.2 L D (13.0-17.5) gm/dL Hct 24.8 L (39.0-53.0) % MCV 103.3 H (80.0-100.0) fL RDW 16.6 H (11.5-15.5) % Plt Count 42 L (150-450) k/uL Lymphocytes # (Manual) 0.62 L (1.0-4.8) k/uL Chloride 111 H (98-107) mmol/L POC Glucose (mg/dL) 67 L (70-110) mg/dL Calcium 8.1 L (8.4-10.2) mg/dL AST 15 L (17-59) U/L Total Protein 4.9 L (6.3-8.2) g/dL Albumin 2.3 L (3.5-5.0) g/dL Microbiology - Last 24 Hours (Table) 02/02/23 16:37 Stool Culture - Preliminary Stool Assessment and Plan (1) Atrial fibrillation with RVR Current Visit: Yes Status: Acute Priority: High Code(s): I48.91 - UNSPECIFIED ATRIAL FIBRILLATION SNOMED Code(s): 709221618903272 (2) Diarrhea Current Visit: Yes Status: Acute Priority: High Code(s): R19.7 - DIARRHEA, UNSPECIFIED SNOMED Code(s): 12726320 (3) Thrombocytopenia Current Visit: Yes Status: Acute Priority: High Code(s): D69.6 - THROMBOC YTOPENIA, UNSPECIFIED SNOMED Code(s): 404780673 Plan: A-fib -New onset -VQ low probability for PE -legs swollen and painful, doppler of BLE is neg for DVT -Cardiology following -on eliquis on admit anemia and thrombocytopenia -2/2 chemo -cont anticoagulation as long as plt >50k. Platelets 42,000 today, 1 unit platelets ordered -transfuse for Hgb,7, plt <50K so pt can remain on anticoagulation -Hemoglobin 8.2 today Diarrhea -persists -suspect an enteritis based on physical exam findings -stool studies, c-diff negative -Imodium ordered -IV fluids were not infusing at todays visit. Asked nurse to please maintain IV fluid hydration -NPO other then ice chips and meds Continue Kools and salt and soda for oral irritation labs daily follow up daily pancreatic adenocarcinoma -s/p 3 cycles of neoadjuvant chemo -dose adjustments will be necessary for pt to tolerate more treatment to get to surgery -Plan for rehab upon discharge, will plan for reevaluation upon d/c from rehab to assess readiness to resume chemo tx
--- NOTE | 2023-02-03 14:33 | P.PN ---
Subjective Progress Note Date: 02/03/23 History of present illness: This is a 67-year-old male patient of Dr. FELI Michael with past medical history of coronary artery disease with prior stent of the RCA in 1996, persistent atrial fibrillation with previous 2 attempts for cardioversion were unsuccessful, ischemic cardiomyopathy with EF of 30-35%, moderate mitral regurgitation, chronic kidney disease, hypertension, hyperlipidemia, diabetes, peripheral vascular disease, family history of premature coronary artery disease, nicotine dependence. Patient was last seen in the office by Dr. Carter for evaluation of ischemic Ligament office May 2022 for evaluation of ischemic cardiomyopathy and plan at that time was for single-chamber ICD implantation for primary prevention of STD. Subsequently, in September 2022, patient was newly diagnosed with pancreatic cancer. He is currently undergoing chemotherapy at under Dr. Rosa every other week. Patient presented to [facility] emergency center due to shortness of breath which is been chronic but worsening and also heartbeat that seems to go slow and then fast. Patient has n ot been eating or drinking very much for the past week as his mouth is painful. He also has chronic abdominal pain. He also states he has had a number of falls last one was on Monday with no injury, no loss of consciousness. He states he feels dizzy at the time when he falls. Patient has been started on amiodarone drip. EKG atrial fibrillation 114 bpm Chest x-ray: No acute pulmonary disease WBC 4, hemoglobin 9.6, platelet count 59. Sodium 136, potassium 4.8, BUN 34 creatinine 1.55. Blood sugar 128. Liver function tests within normal limits. ProBNP 10,200. Troponin negative 1. TSH 2.67. Lipase 27. D-dimer 0.25. Home cardiac medications: Eliquis 5 mg twice daily, Lasix 40 mg daily, Imdur 30 mg daily, Lopressor 100 mg in the morning and 50 mg in the evening, Nitrostat as needed, pravastatin 20 g at bedtime Echocardiogram 11/2021 EF 35%, inferior hypokinesia, moderate pulmonary hypertension, moderate to severe mitral regurgitation, moderate mitral valve calcification. Unsuccessful cardioversion 05/2018 and 03/2018 Lexiscan stress test 08/11 2116. Her wall defect with no reversible ischemia, EF 30% 02/02 Patient is seen today on the cardiac stepdown unit. He states his breathing is better from yesterday. He is currently off IV amiodarone as it was apparently discontinued during the night due to hypotension. Now his blood pressure is 107 systolic. He did drop down to a systolic of 80s and 90s. Imdur will be discontinued. Telemetry is atrial fibrillation between 80 and 120. VQ scan was low probability for PE and bilateral lower extremity Doppler was negative for DVT 02/03 Patient is seen today in follow-up. He remains in atrial fibrillation with heart rate in the 70s. He has been maintained on increased dose of Lopressor 100 mg twice daily and started on digoxin yesterday. He will receive his second dose of digoxin today. Patient is continued on eliquis. We did discontinue indoor due to soft blood pressure readings. Physical examination: Gen: This is a 67-year-old male. Patient is resting in bed and appears to be in no acute distress. He does appear to be unwell. VS: reviewed HEENT: Head is atraumatic, normocephalic. Pupils equal, round. Sclerae is anicteric. NECK: Supple. No JVD. . LUNGS: Clear to auscultation. No wheezes or rhonchi. No intercostal retractions. HEART: Regular rate and rhythm. Systolic murmur. ABDOMEN: Soft No tenderness. EXTREMITIES: No pedal edema. No calf tenderness. NEUROLOGICAL: Patient is awake, alert and oriented x3. Assessment: A. fib with RVR, rate controlled Ischemic cardiomyopathy Coronary artery disease with prior stent of the RCA Persistent atrial fibrillation Moderate mitral regurgitation Chronic kidney disease Hypertension Hyperlipidemia Diabetes Peripheral vascular disease Pancreatic cancer Diarrhea Thrombocytopenia Plan: Continue increased dose of Lopressor 100 mg twice daily Continue digoxin 250 g daily Continue eliquis 5 mg twice daily Prognosis guarded Cardiology we will sign off and follow on an as-needed basis. Patient is cleared from cardiology for discharge. Please reconsult for any new concerns. Nurse practitioner note has been reviewed, I agree with documented findings and plan of care. Patient was seen and examined. Objective - Vital Signs Vital signs: Vital Signs Temp 98.0 F 02/03/23 08:18 Pulse 85 02/03/23 08:18 Resp 18 02/03/23 08:18 BP 106/70 02/03/23 08:18 Pulse Ox 97 02/03/23 08:18 FiO2 Intake & Output 02/02/23 02/03/23 02/03/23 18:59 06:59 18:59 Other: Voiding Method Toilet Toilet # Voids 2 # Bowel Movements 1 - Labs CBC & Chem 7: 02/03/23 08:18 02/03/23 08:18 Labs: Abnormal Lab Results - Last 24 Hours (Table) 02/02/23 02/02/23 02/03/23 Range/Units 10:51 10:51 08:18 WBC 2.2 L 2.4 L (3.8-10.6) k/uL RBC 2.75 L 2.40 L (4.30-5.90) m/uL Hgb 9.7 L 8.2 L D (13.0-17.5) gm/dL Hct 29.1 L 24.8 L (39.0-53.0) % MCV 105.9 H 103.3 H (80.0-100.0) fL MCH 35.4 H (25.0-35.0) pg RDW 15.8 H 16.6 H (11.5-15.5) % Plt Count 59 L 42 L (150-450) k/uL Chloride 108 H (98-107) mmol/L Carbon Dioxide 21 L (22-30) mmol/L BUN 28 H (9-20) mg/dL Creatinine 1.45 H (0.66-1.25) mg/dL Glucose 101 H (74-99) mg/dL
[2023-02-03] MEDS: DEXTROSE 5%-0.9% NACL 1,000 ML IV SCH (16:52)
[2023-02-03 17:02] LABS: Glucose,Whole Blood 156 mg/dL (70-110)
[2023-02-03] MEDS: PRAVASTATIN SODIUM 20 MG TAB PO SCH (20:31)
[2023-02-03 21:19] LABS: Glucose,Whole Blood 92 mg/dL (70-110)
[2023-02-04 01:05] LABS: Glucose,Whole Blood 104 mg/dL (70-110)
[2023-02-04] MEDS: HYDROcodone/APAP 10-325MG 1 EACH TAB PO PRN ×2 (02:50→10:48)
[2023-02-04 05:07] LABS: Glucose,Whole Blood 109 mg/dL (70-110)
[2023-02-04] MEDS: SALT AND SODA MOUTHWASH 1,000 ML PO SCH ×5 (06:46→23:14)
[2023-02-04] MEDS: APIXABAN 5 MG TAB PO SCH ×2 (08:07→20:53)
[2023-02-04] MEDS: CYANOCOBALAMIN 500 MCG TAB PO SCH (08:07)
[2023-02-04] MEDS: CHOLECALCIFEROL 25 MCG (1000 IU) TABLET PO SCH (08:07)
[2023-02-04] MEDS: PANTOPRAZOLE 40 MG/10 ML VIAL IV SCH (08:07)
[2023-02-04] MEDS: METOPROLOL TARTRATE 50 MG TAB PO SCH ×2 (08:07→20:53)
[2023-02-04] MEDS: DIGOXIN 250 MCG TAB PO SCH (08:07)
[2023-02-04] MEDS: MAG HYDROX/AL HYDROX/SIMETH 30 ML, LIDOCAINE VISCOUS 2% 30 ML, diphenhydrAMINE ELIXIR 7... PO SCH ×12 (08:12→20:56)
[2023-02-04 08:58] LABS: Glucose,Whole Blood 63 mg/dL (70-110)
[2023-02-04] MEDS ORDERED: DEXTROSE 50% SYRINGE 50 ML IVP STA (09:03)
[2023-02-04] MEDS: INSULIN ASPART (NovoLOG) 100 UNIT/ML VIAL SQ SCH ×4 (09:04→21:01)
[2023-02-04 09:27] LABS: Glucose,Whole Blood 217 mg/dL (70-110)
[2023-02-04 10:16] LABS: Basophils % (A) 0 %; Eosinophils % (A) 1 %; HCT 29.1 % (39.0-53.0); Lymphocytes # (A) 0.7 k/uL (1.0-4.8); Lymphocytes % (A) 20 %; MCH 35.3 pg (25.0-35.0); MCHC 33.7 g/dL (31.0-37.0); MCV 104.7 fL (80.0-100.0); Macrocytosis Moderate; Mean Platelet Volume 9.7; Monocytes # (A) 0.3 k/uL (0-1.0); Monocytes % (A) 9 %; Neutrophils # (A) 2.4 k/uL (1.3-7.7); Neutrophils % (A) 66 %; RBC 2.77 m/uL (4.30-5.90); RDW 15.8 % (11.5-15.5); WBC 3.6 k/uL (3.8-10.6)
[2023-02-04 10:33] LABS: Albumin 2.9 g/dL (3.5-5.0); Calcium 8.5 mg/dL (8.4-10.2); Potassium 3.8 mmol/L (3.5-5.1); Total Bilirubin 0.8 mg/dL (0.2-1.3)
[2023-02-04 10:43] LABS: HGB 9.8 gm/dL (13.0-17.5)
[2023-02-04 10:44] LABS: Platelet Count 79 k/uL (150-450)
[2023-02-04 12:59] LABS: Glucose,Whole Blood 163 mg/dL (70-110)
--- NOTE | 2023-02-04 14:13 | P.PN ---
Subjective Progress Note Date: 02/04/23 Principal diagnosis: Abdominal pain with diarrhea -Given Imodium one-time dose followed by order for Imodium 2 mg 4 times daily as needed -No acute events overnight -Imodium used once over the past 24 hours -He notes having persistent diarrhea with abdominal cramping. He denies any vomiting, but notes intermittent nausea Objective - Vital Signs Vital signs: Vital Signs Temp 98.0 F 02/04/23 04:00 Pulse 79 02/04/23 12:01 Resp 18 02/04/23 12:01 BP 109/65 02/04/23 12:01 Pulse Ox 100 02/04/23 12:01 FiO2 Intake & Output 02/03/23 02/04/23 02/04/23 18:59 06:59 18:59 Intake Total 0 278 Balance 0 278 Intake: Blood Product 0 278 Platelet Pheresis Pas 0 278 Psoralen Unit [id number] Other: Voiding Method Toilet Toilet Toilet # Voids 1 2 1 # Bowel Movements 2 - Constitutional Constitutional Comment(s): Lying in bed fatigued appearing General appearance: Present: cooperative, no acute distress - EENT Eyes: Present: EOMI - Respiratory Respiratory: bilateral: CTA - Cardiovascular Rhythm: regular - Gastrointestinal General gastrointestinal: Present: hyperactive bowel sounds, soft, tenderness Localized gastrointestinal: tender: diffuse - Integumentary Integumentary: Absent: rash - Neurologic Neurologic: Present: CNII-XII intact. Absent: focal deficits - Labs CBC & Chem 7: 02/04/23 08:17 02/04/23 08:17 Labs: Abnormal Lab Results - Last 24 Hours (Table) 02/03/23 02/04/23 02/04/23 Range/Units 17:00 08:17 08:17 WBC 3.6 L (3.8-10.6) k/uL RBC 2.77 L (4.30-5.90) m/uL Hgb 9.8 L D (13.0-17.5) gm/dL Hct 29.1 L (39.0-53.0) % MCV 104.7 H (80.0-100.0) fL MCH 35.3 H (25.0-35.0) pg RDW 15.8 H (11.5-15.5) % Plt Count 79 L D (150-450) k/uL Chloride 108 H (98-107) mmol/L Glucose 111 H (74-99) mg/dL POC Glucose (mg/dL) 156 H (70-110) mg/dL Total Protein 6.0 L (6.3-8.2) g/dL Albumin 2.9 L (3.5-5.0) g/dL 02/04/23 02/04/23 02/04/23 Range/Units 08:57 09:26 12:57 WBC (3.8-10.6) k/uL RBC (4.30-5.90) m/uL Hgb (13.0-17.5) gm/dL Hct (39.0-53.0) % MCV (80.0-100.0) fL MCH (25.0-35.0) pg RDW (11.5-15.5) % Plt Count (150-450) k/uL Chloride (98-107) mmol/L Glucose (74-99) mg/dL POC Glucose (mg/dL) 63 L 217 H 163 H (70-110) mg/dL Total Protein (6.3-8.2) g/dL Albumin (3.5-5.0) g/dL Microbiology - Last 24 Hours (Table) 02/02/23 16:37 Stool Culture - Preliminary Stool Assessment and Plan (1) Atrial fibrillation with RVR Current Visit: Yes Status: Acute Priority: High Code(s): I48.91 - UNSPECIFIED ATRIAL FIBRILLATION SNOMED Code(s): 038812373305892 (2) Diarrhea Current Visit: Yes Status: Acute Priority: High Code(s): R19.7 - DIARRHEA, UNSPECIFIED SNOMED Code(s): 14446777 (3) Thrombocytopenia Current Visit: Yes Status: Acute Priority: High Code(s): D69.6 - THROMBOCYTOPENIA, UNSPECIFIED SNOMED Code(s): 205730417 Plan: A-fib -New onset -VQ low probability for PE -legs swollen and painful, doppler of BLE is neg for DVT -Cardiology following -Continue Eliquis anemia and thrombocytopenia -2/2 chemo -cont anticoagulation as long as plt >50k. Platelets 79,000 today status post 1 unit for recent platelets on 02/03/2023 -transfuse for Hgb,7, plt <50K so pt can remain on anticoagulation -Hemoglobin 9.8 today Diarrhea -persists -suspect an enteritis versus chemotherapy-induced diarrhea secondary to irinotecan -stool studies, c-diff negative -Imodium changed to 4 mg every 6 hours scheduled for maximum daily dose of 16 mg -We discussed potentially adding Lomotil if he has persistent diarrhea with abdominal cramping -Continue IV fluid hydration -NPO other then ice chips and meds Mucositis -Likely chemotherapy induced from 5-fluorouracil -Continue Magic mouthwash 3 times daily with nystatin pancreatic adenocarcinoma -s/p 3 cycles of neoadjuvant chemo -dose adjustments will be necessary for pt to tolerate more treatment to get to surgery -Plan for rehab upon discharge, will plan for reevaluation upon d/c from rehab to assess readiness to resume chemo tx
--- NOTE | 2023-02-04 14:23 | P.PN ---
Subjective Progress Note Date: 02/04/23 67 year-old gentleman with past medical history significant for coronary artery disease history of PCI, atrial fibrillation, cardiomyopathy with ejection fraction of 35%, peripheral vascular disease, chronic kidney disease, hypertension and hyperlipidemia presented to the emergency department with complaints of shortness of breath and abdominal pain. * Patient had also complained of ongoing diarrhea for 4 days. Patient said his last chemotherapy was one week ago and does get diarrhea post-chemo. * Patient denied associated fever, chills * While in ER initial workup included a chest x-ray which was negative, CBC obtained showed white cell count of 4, hemoglobin 9.6, hematocrit of 28, platelet count of 59. Basic metabolic panel showed sodium 136 potassium 4.8 BUN 34 creatinine 1.55 * Patient was noted to have A. fib with RVR and was started on amiodarone drip with consultations obtained from cardiology 02/02. Patient seen and examined. Still having diarrhea. Complaining of dizziness. Denies any shortness of breath. Vital signs stable 02/03. Patient seen and examined. States he does not feel well today. Comparing of dizziness. Complaining of swelling of lower extremities. Still h aving diarrhea 02/04. Patient seen and examined. Vitals and this morning. Respiratory rate 18, heart rate 86, blood pressure 106/68, patient still complained of diarrhea, hematology oncology added Imodium REVIEW OF SYSTEMS: CONSTITUTIONAL: No fever, no malaise,. CARDIOVASCULAR: No chest pain, no palpitations, no syncope. PULMONARY: No shortness of breath, no cough, GASTROINTESTINAL: no vomiting, complaining of abdominal pain and diarrhea NEUROLOGICAL: No headaches, no weakness, PHYSICAL EXAMINATION: GENERAL: The patient is alert and oriented x3, not in any acute distress. Well developed, well nourished. HEENT: Pupils are round and equally reacting to light. EOMI. No scleral icterus. No conjunctival pallor. Normocephalic, atraumatic. No pharyngeal erythema. No thyromegaly. CARDIOVASCULAR: S1 and S2 present. No murmurs, rubs, or gallops. PULMONARY: Chest is clear to auscultation, no wheezing or crackles. ABDOMEN: Soft, nontender, nondistended, normoactive bowel sounds. No palpable organomegaly. MUSCULOSKELETAL: No joint swelling or deformity. EXTREMITIES: 2+ pitting edema of lower extremities bilaterally NEUROLOGICAL: Gross neurological examination did not reveal any focal deficits. SKIN: No rashes. Assessment and plan * Diarrhea presume infectious and malignant rule out C. diff * Atrial fibrillation with rapid ventricular response * History of pancreatic cancer * Ischemic cardiomyopathy * History of coronary artery disease * Diabetes mellitus * Chronic kidney disease * Moderate mitral regurg * Hypertension * Hyperlipidemia * Mucositis Plan; Monitor vital signs * Monitor CBC * Monitor CMP * CT abdomen done showed cholelithiasis with biliary stent in place. No acute process noted * V/Q scan negative for PE * Ultrasound of lower extremities negative for DVT * Continue Lopressor and Eliquis * Continue digoxin * Continue IV fluids * Imodium added by hematology oncology, if diarrhea does not improve they might consider adding Lomotil * Imdur discontinued because of hypotension * Follow-up on hematology recommendations * Follow-up in cardiology recommendations Objective - Vital Signs Vital signs: Vital Signs Temp 98.0 F 02/04/23 04:00 Pulse 86 02/04/23 04:00 Resp 18 02/04/23 08:03 BP 107/68 02/04/23 04:00 Pulse Ox 97 02/04/23 04:00 FiO2 Intake & Output 02/03/23 02/04/23 02/04/23 18:59 06:59 18:59 Intake Total 0 278 Balance 0 278 Intake: Blood Product 0 278 Platelet Pheresis Pas 0 278 Psoralen Unit [id number] Other: Voiding Method Toilet Toilet # Voids 1 2 # Bowel Movements 2 - Labs CBC & Chem 7: 02/04/23 08:17 02/04/23 08:17 Labs: Abnormal Lab Results - Last 24 Hours (Table) 02/03/23 02/03/23 02/03/23 Range/Units 08:18 08:18 13:16 Lymphocytes # (Manual) 0.62 L (1.0-4.8) k/uL Chloride 111 H (98-107) mmol/L POC Glucose (mg/dL) 67 L (70-110) mg/dL Calcium 8.1 L (8.4-10.2) mg/dL AST 15 L (17-59) U/L Total Protein 4.9 L (6.3-8.2) g/dL Albumin 2.3 L (3.5-5.0) g/dL 02/03/23 02/04/23 02/04/23 Range/Units 17:00 08:57 09:26 Lymphocytes # (Manual) (1.0-4.8) k/uL Chloride (98-107) mmol/L POC Glucose (mg/dL) 156 H 63 L 217 H (70-110) mg/dL Calcium (8.4-10.2) mg/dL AST (17-59) U/L Total Protein (6.3-8.2) g/dL Albumin (3.5-5.0) g/dL Microbiology - Last 24 Hours (Table) 02/02/23 16:37 Stool Culture - Preliminary Stool
[2023-02-04] MEDS: LOPERAMIDE 2 MG CAP PO SCH ×3 (14:56→20:53)
[2023-02-04] MEDS: DEXTROSE 5%-0.9% NACL 1,000 ML IV SCH (16:12)
[2023-02-04 17:05] LABS: Glucose,Whole Blood 92 mg/dL (70-110)
[2023-02-04] MEDS: PRAVASTATIN SODIUM 20 MG TAB PO SCH (20:53)
[2023-02-04 21:00] LABS: Glucose,Whole Blood 106 mg/dL (70-110)
[2023-02-05] MEDS: HYDROcodone/APAP 10-325MG 1 EACH TAB PO PRN ×3 (04:06→23:28)
[2023-02-05] MEDS: SALT AND SODA MOUTHWASH 1,000 ML PO SCH ×5 (04:07→23:29)
[2023-02-05 05:05] LABS: Glucose,Whole Blood 110 mg/dL (70-110)
[2023-02-05] MEDS: INSULIN ASPART (NovoLOG) 100 UNIT/ML VIAL SQ SCH ×4 (06:09→23:29)
[2023-02-05 07:59] LABS: Anisocytosis Slight; HCT 24.5 % (39.0-53.0); HGB 8.4 gm/dL (13.0-17.5); MCH 35.1 pg (25.0-35.0); MCHC 34.5 g/dL (31.0-37.0); MCV 101.7 fL (80.0-100.0); Macrocytosis Moderate; Mean Platelet Volume 9.2; Poikilocytosis Slight; RBC 2.41 m/uL (4.30-5.90); WBC 4.6 k/uL (3.8-10.6)
[2023-02-05 08:03] LABS: Platelet Count 64 k/uL (150-450)
[2023-02-05] MEDS: METOPROLOL TARTRATE 50 MG TAB PO SCH ×2 (08:13→20:40)
[2023-02-05] MEDS: PANTOPRAZOLE 40 MG/10 ML VIAL IV SCH (08:13)
[2023-02-05] MEDS: DIGOXIN 250 MCG TAB PO SCH (08:13)
[2023-02-05] MEDS: CYANOCOBALAMIN 500 MCG TAB PO SCH (08:14)
[2023-02-05] MEDS: CHOLECALCIFEROL 25 MCG (1000 IU) TABLET PO SCH (08:14)
[2023-02-05] MEDS: LOPERAMIDE 2 MG CAP PO SCH ×4 (08:14→20:40)
[2023-02-05] MEDS: HYDROmorphone 1 MG/ML 1 ML SYRINGE IVP PRN (08:14)
[2023-02-05] MEDS: APIXABAN 5 MG TAB PO SCH ×2 (08:14→20:40)
[2023-02-05] MEDS: DEXTROSE 5%-0.9% NACL 1,000 ML IV SCH ×2 (08:15→16:43)
[2023-02-05 08:21] LABS: Albumin 2.2 g/dL (3.5-5.0); Calcium 7.8 mg/dL (8.4-10.2); Potassium 3.5 mmol/L (3.5-5.1); Total Bilirubin 0.5 mg/dL (0.2-1.3); Total Protein 4.9 g/dL (6.3-8.2)
[2023-02-05 09:37] LABS: Glucose,Whole Blood 120 mg/dL (70-110)
[2023-02-05] MEDS: MAG HYDROX/AL HYDROX/SIMETH 30 ML, LIDOCAINE VISCOUS 2% 30 ML, diphenhydrAMINE ELIXIR 7... PO SCH ×12 (10:19→23:29)
[2023-02-05 13:39] LABS: Glucose,Whole Blood 89 mg/dL (70-110)
--- NOTE | 2023-02-05 13:53 | P.PN ---
Subjective Progress Note Date: 02/05/23 Principal diagnosis: Abdominal pain with diarrhea -No acute events overnight -Notes having persistent liquid diarrhea despite 4 doses of Imodium 4 mg over the past 24 hours with episodes of fecal urgency -He continues to have cramping diffusely across the abdomen Objective - Vital Signs Vital signs: Vital Signs Temp 97.9 F 02/05/23 04:00 Pulse 62 02/05/23 12:14 Resp 18 02/05/23 12:14 BP 89/47 02/05/23 12:14 Pulse Ox 100 02/05/23 12:14 FiO2 Intake & Output 02/04/23 02/05/23 02/05/23 18:59 06:59 18:59 Other: Voiding Method Toilet Toilet Toilet # Voids 3 3 # Bowel Movements 3 3 - Constitutional Constitutional Comment(s): Fatigued appearing General appearance: Present: cooperative, no acute distress - EENT EENT Comment(s): Healing mucositis lesions on the buccal mucosa bilaterally Eyes: Present: EOMI - Respiratory Respiratory: bilateral: CTA - Cardiovascular Rhythm: regular - Gastrointestinal General gastrointestinal: Present: hyperactive bowel sounds, soft, tenderness. Absent: distended - Integumentary Integumentary: Absent: rash - Neurologic Neurologic: Present: CNII-XII intact. Absent: focal deficits - Labs CBC & Chem 7: 02/05/23 07:20 02/05/23 07:20 Labs: Abnormal Lab Results - Last 24 Hours (Table) 02/04/23 02/05/23 02/05/23 Range/Units 08:17 07:20 07:20 RBC 2.41 L (4.30-5.90) m/uL Hgb 8.4 L (13.0-17.5) gm/dL Hct 24.5 L (39.0-53.0) % MCV 101.7 H (80.0-100.0) fL MCH 35.1 H (25.0-35.0) pg RDW 17.0 H (11.5-15.5) % Plt Count 64 L (150-450) k/uL Lymphocytes # 0.7 L (1.0-4.8) k/uL Chloride 111 H (98-107) mmol/L Glucose 133 H (74-99) mg/dL POC Glucose (mg/dL) (70-110) mg/dL Calcium 7.8 L (8.4-10.2) mg/dL Total Protein 4.9 L (6.3-8.2) g/dL Albumin 2.2 L (3.5-5.0) g/dL 02/05/23 Range/Units 09:35 RBC (4.30-5.90) m/uL Hgb (13.0-17.5) gm/dL Hct (39.0-53.0) % MCV (80.0-100.0) fL MCH (25.0-35.0) pg RDW (11.5-15.5) % Plt Count (150-450) k/uL Lymphocytes # (1.0-4.8) k/uL Chloride (98-107) mmol/L Glucose (74-99) mg/dL POC Glucose (mg/dL) 120 H (70-110) mg/dL Calcium (8.4-10.2) mg/dL Total Protein (6.3-8.2) g/dL Albumin (3.5-5.0) g/dL Microbiology - Last 24 Hours (Table) 02/02/23 16:37 Stool Culture - Preliminary Stool Assessment and Plan (1) Atrial fibrillation with RVR Current Visit: Yes Status: Acute Priority: High Code(s): I48.91 - UNSPECIFIED ATRIAL FIBRILLATION SNOMED Code(s): 970140143755657 (2) Diarrhea Current Visit: Yes Status: Acute Priority: High Code(s): R19.7 - DIARRHEA, UNSPECIFIED SNOMED Code(s): 73329000 (3) Thrombocytopenia Current Visit: Yes Status: Acute Priority: High Code(s): D69.6 - THROMBOCYTOPENIA, UNSPECIFIED SNOMED Code(s): 245628331 Plan: A-fib -New onset -VQ low probability for PE -legs swollen and painful, doppler of BLE is neg for DVT -Cardiology following -Continue Eliquis anemia and thrombocytopenia -2/2 chemo -cont anticoagulation as long as plt >50k. Platelets 79,000 today status post 1 unit for recent platelets on 02/03/2023 -transfuse for Hgb,7, plt <50K so pt can remain on anticoagulation Diarrhea -persists -suspect an enteritis versus chemotherapy-induced diarrhea secondary to irinotecan -stool studies, c-diff negative -Started Imodium 4 mg every 6 hours scheduled yesterday and has received 16 mg over the past 24 hours with no significant improvement in diarrhea or abdominal cramping -We will add Lomotil 1 tab 4 times daily scheduled to assist with diarrhea and abdominal cramping -Continue Imodium 4 mg every 6 hours scheduled -Continue IV fluid hydration -NPO other then ice chips and meds Mucositis -Likely chemotherapy induced from 5-fluorouracil -Continue Magic mouthwash 3 times daily with nystatin along with salt water rinses pancreatic adenocarcinoma -s/p 3 cycles of neoadjuvant chemo -dose adjustments will be necessary for pt to tolerate more treatment to get to surgery -Plan for rehab upon discharge, will plan for reevaluation upon d/c from rehab to assess readiness to resume chemo tx
--- NOTE | 2023-02-05 14:03 | P.PN ---
Subjective Progress Note Date: 02/05/23 67 year-old gentleman with past medical history significant for coronary artery disease history of PCI, atrial fibrillation, cardiomyopathy with ejection fraction of 35%, peripheral vascular disease, chronic kidney disease, hypertension and hyperlipidemia presented to the emergency department with complaints of shortness of breath and abdominal pain. * Patient had also complained of ongoing diarrhea for 4 days. Patient said his last chemotherapy was one week ago and does get diarrhea post-chemo. * Patient denied associated fever, chills * While in ER initial workup included a chest x-ray which was negative, CBC obtained showed white cell count of 4, hemoglobin 9.6, hematocrit of 28, platelet count of 59. Basic metabolic panel showed sodium 136 potassium 4.8 BUN 34 creatinine 1.55 * Patient was noted to have A. fib with RVR and was started on amiodarone drip with consultations obtained from cardiology 02/02. Patient seen and examined. Still having diarrhea. Complaining of dizziness. Denies any shortness of breath. Vital signs stable 02/03. Patient seen and examined. States he does not feel well today. Comparing of dizziness. Complaining of swelling of lower extremities. Still h aving diarrhea 02/04. Patient seen and examined. Vitals and this morning. Respiratory rate 18, heart rate 86, blood pressure 106/68, patient still complained of diarrhea, hematology oncology added Imodium 02/05 patient seen and examined. Hemoglobin this morning is 8.4, white count 4.6, sodium 138, potassium 3.5. Patient on telemetry was having some pauses, cardiology on board. Still complaining of lightheadedness. Still having diarrhea REVIEW OF SYSTEMS: CONSTITUTIONAL: No fever, no malaise,. CARDIOVASCULAR: No chest pain, no palpitations, no syncope. PULMONARY: No shortness of breath, no cough, GASTROINTESTINAL: no vomiting, complaining of abdominal pain and diarrhea NEUROLOGICAL: No headaches, no weakness, PHYSICAL EXAMINATION: GENERAL: The patient is alert and oriented x3, not in any acute distress. Well developed, well nourished. HEENT: Pupils are round and equally reacting to light. EOMI. No scleral icterus. No conjunctival pallor. Normocephalic, atraumatic. No pharyngeal erythema. No thyromegaly. CARDIOVASCULAR: S1 and S2 present. No murmurs, rubs, or gallops. PULMONARY: Chest is clear to auscultation, no wheezing or crackles. ABDOMEN: Soft, nontender, nondistended, normoactive bowel sounds. No palpable organomegaly. MUSCULOSKELETAL: No joint swelling or deformity. EXTREMITIES: 2+ pitting edema of lower extremities bilaterally NEUROLOGICAL: Gross neurological examination did not reveal any focal deficits. SKIN: No rashes. Assessment and plan * Diarrhea presume infectious and malignant rule out C. diff * Atrial fibrillation with rapid ventricular response * History of pancreatic cancer * Ischemic cardiomyopathy * History of coronary artery disease * Diabetes mellitus * Chronic kidney disease * Moderate mitral regurg * Hypertension * Hyperlipidemia * Mucositis Plan; Monitor vital signs * Monitor CBC * Monitor CMP * CT abdomen done showed cholelithiasis with biliary stent in place. No acute process noted * V/Q scan negative for PE * Ultrasound of lower extremities negative for DVT * Continue Lopressor and Eliquis * Continue digoxin * Continue IV fluids * Continue scheduled Imodium, added Lomotil * Follow-up on hematology recommendations * Follow-up in cardiology recommendations Objective - Vital Signs Vital signs: Vital Signs Temp 97.9 F 02/05/23 04:00 Pulse 88 02/05/23 08:06 Resp 18 02/05/23 08:06 BP 93/51 02/05/23 08:06 Pulse Ox 95 02/05/23 09:22 FiO2 Intake & Output 02/04/23 02/05/23 02/05/23 18:59 06:59 18:59 Other: Voiding Method Toilet Toilet # Voids 3 3 # Bowel Movements 3 3 - Labs CBC & Chem 7: 02/05/23 07:20 02/05/23 07:20 Labs: Abnormal Lab Results - Last 24 Hours (Table) 02/04/23 02/04/23 02/04/23 Range/Units 08:17 08:17 12:57 WBC 3.6 L (3.8-10.6) k/uL RBC 2.77 L (4.30-5.90) m/uL Hgb 9.8 L D (13.0-17.5) gm/dL Hct 29.1 L (39.0-53.0) % MCV 104.7 H (80.0-100.0) fL MCH 35.3 H (25.0-35.0) pg RDW 15.8 H (11.5-15.5) % Plt Count 79 L D (150-450) k/uL Lymphocytes # 0.7 L (1.0-4.8) k/uL Chloride 108 H (98-107) mmol/L Glucose 111 H (74-99) mg/dL POC Glucose (mg/dL) 163 H (70-110) mg/dL Calcium (8.4-10.2) mg/dL Total Protein 6.0 L (6.3-8.2) g/dL Albumin 2.9 L (3.5-5.0) g/dL 02/05/23 02/05/23 Range/Units 07:20 07:20 WBC (3.8-10.6) k/uL RBC 2.41 L (4.30-5.90) m/uL Hgb 8.4 L (13.0-17.5) gm/dL Hct 24.5 L (39.0-53.0) % MCV 101.7 H (80.0-100.0) fL MCH 35.1 H (25.0-35.0) pg RDW 17.0 H (11.5-15.5) % Plt Count 64 L (150-450) k/uL Lymphocytes # (1.0-4.8) k/uL Chloride 111 H (98-107) mmol/L Glucose 133 H (74-99) mg/dL POC Glucose (mg/dL) (70-110) mg/dL Calcium 7.8 L (8.4-10.2) mg/dL Total Protein 4.9 L (6.3-8.2) g/dL Albumin 2.2 L (3.5-5.0) g/dL Microbiology - Last 24 Hours (Table) 02/02/23 16:37 Stool Culture - Preliminary Stool
--- NOTE | 2023-02-05 14:19 | P.PN ---
Subjective Progress Note Date: 02/05/23 History of present illness: This is a 67-year-old male patient of Dr. FELI Michael with past medical history of coronary artery disease with prior stent of the RCA in 1996, persistent atrial fibrillation with previous 2 attempts for cardioversion were unsuccessful, ischemic cardiomyopathy with EF of 30-35%, moderate mitral regurgitation, chronic kidney disease, hypertension, hyperlipidemia, diabetes, peripheral vascular disease, family history of premature coronary artery disease, nicotine dependence. Patient was last seen in the office by Dr. Carter for evaluation of ischemic Ligament office May 2022 for evaluation of ischemic cardiomyopathy and plan at that time was for single-chamber ICD implantation for primary prevention of STD. Subsequently, in September 2022, patient was newly diagnosed with pancreatic cancer. He is currently undergoing chemotherapy at under Dr. Rosa every other week. Patient presented to [facility] emergency [facility] due to shortness of breath which is been chronic but worsening and also heartbeat that seems to go slow and then fast. Patient has n ot been eating or drinking very much for the past week as his mouth is painful. He also has chronic abdominal pain. He also states he has had a number of falls last one was on Monday with no injury, no loss of consciousness. He states he feels dizzy at the time when he falls. Patient has been started on amiodarone drip. EKG atrial fibrillation 114 bpm Chest x-ray: No acute pulmonary disease WBC 4, hemoglobin 9.6, platelet count 59. Sodium 136, potassium 4.8, BUN 34 creatinine 1.55. Blood sugar 128. Liver function tests within normal limits. ProBNP 10,200. Troponin negative 1. TSH 2.67. Lipase 27. D-dimer 0.25. Home cardiac medications: Eliquis 5 mg twice daily, Lasix 40 mg daily, Imdur 30 mg daily, Lopressor 100 mg in the morning and 50 mg in the evening, Nitrostat as needed, pravastatin 20 g at bedtime Echocardiogram 11/2021 EF 35%, inferior hypokinesia, moderate pulmonary hypertension, moderate to severe mitral regurgitation, moderate mitral valve calcification. Unsuccessful cardioversion 05/2018 and 03/2018 Lexiscan stress test 08/11 2116. Her wall defect with no reversible ischemia, EF 30% 02/02 Patient is seen today on the cardiac stepdown unit. He states his breathing is better from yesterday. He is currently off IV amiodarone as it was apparently discontinued during the night due to hypotension. Now his blood pressure is 107 systolic. He did drop down to a systolic of 80s and 90s. Imdur will be discontinued. Telemetry is atrial fibrillation between 80 and 120. VQ scan was low probability for PE and bilateral lower extremity Doppler was negative for DVT 02/03 Patient is seen today in follow-up. He remains in atrial fibrillation with heart rate in the 70s. He has been maintained on increased dose of Lopressor 100 mg twice daily and started on digoxin yesterday. He will receive his second dose of digoxin today. Patient is continued on eliquis. We did discontinue indoor due to soft blood pressure readings. 02/05 Cardiology reconsulted for puases seen on Telemetry. Tele reviewed, shows pauses <3 sec, longest being 2.7 sec. He does reports some chest pressure overnight, this has resolved. EKG reviewed, shows a-fib with t-wave inversions, 69 BPM. Rate controlled, does mara down into 40's at night. He complains mostly of continued diarrhea, abdominal and mouth pains. Plt 64. Physical examination: Gen: This is a 67-year-old male. Patient is resting in bed and appears to be in no acute distress. He does appear to be unwell. VS: reviewed HEENT: Head is atraumatic, normocephalic. Pupils equal, round. Sclerae is anicteric. NECK: Supple. No JVD. LUNGS: Clear to auscultation. No wheezes or rhonchi. No intercostal retra ctions. HEART: Irregular rate and rhythm. Systolic murmur. ABDOMEN: Soft No tenderness. EXTREMITIES: Trace ankle edema. No calf tenderness. NEUROLOGICAL: Patient is awake, alert and oriented x3. Assessment: A. fib with RVR, rate controlled Ischemic cardiomyopathy Coronary artery disease with prior stent of the RCA Persistent atrial fibrillation Moderate mitral regurgitation Chronic kidney disease Hypertension Hyperlipidemia Diabetes Peripheral vascular disease Pancreatic cancer Diarrhea Thrombocytopenia Plan: Telemetry and EKG reviewed, no significant changes, rate is controlled. Recom mend continuing current heart medications. Check mag level. Cardiology we will sign off and follow on an as-needed basis. Please reconsult for any new concerns. Nurse practitioner note has been reviewed, I agree with documented findings and plan of care. Patient was seen and examined. Objective - Vital Signs Vital signs: Vital Signs Temp 97.9 F 02/05/23 04:00 Pulse 88 02/05/23 09:33 Resp 18 02/05/23 09:33 BP 93/51 02/05/23 08:06 Pulse Ox 95 02/05/23 09:22 FiO2 Intake & Output 02/04/23 02/05/23 02/05/23 18:59 06:59 18:59 Other: Voiding Method Toilet Toilet Toilet # Voids 3 3 # Bowel Movements 3 3 - Labs CBC & Chem 7: 02/05/23 07:20 02/05/23 07:20 Labs: Abnormal Lab Results - Last 24 Hours (Table) 02/04/23 02/04/23 02/05/23 Range/Units 08:17 12:57 07:20 RBC 2.41 L (4.30-5.90) m/uL Hgb 8.4 L (13.0-17.5) gm/dL Hct 24.5 L (39.0-53.0) % MCV 101.7 H (80.0-100.0) fL MCH 35.1 H (25.0-35.0) pg RDW 17.0 H (11.5-15.5) % Plt Count 64 L (150-450) k/uL Lymphocytes # 0.7 L (1.0-4.8) k/uL Chloride (98-107) mmol/L Glucose (74-99) mg/dL POC Glucose (mg/dL) 163 H (70-110) mg/dL Calcium (8.4-10.2) mg/dL Total Protein (6.3-8.2) g/dL Albumin (3.5-5.0) g/dL 02/05/23 02/05/23 Range/Units 07:20 09:35 RBC (4.30-5.90) m/uL Hgb (13.0-17.5) gm/dL Hct (39.0-53.0) % MCV (80.0-100.0) fL MCH (25.0-35.0) pg RDW (11.5-15.5) % Plt Count (150-450) k/uL Lymphocytes # (1.0-4.8) k/uL Chloride 111 H (98-107) mmol/L Glucose 133 H (74-99) mg/dL POC Glucose (mg/dL) 120 H (70-110) mg/dL Calcium 7.8 L (8.4-10.2) mg/dL Total Protein 4.9 L (6.3-8.2) g/dL Albumin 2.2 L (3.5-5.0) g/dL Microbiology - Last 24 Hours (Table) 02/02/23 16:37 Stool Culture - Preliminary Stool
[2023-02-05] MEDS: DIPHENOX-ATROP 2.5-0.025 MG 1 EACH TAB PO SCH ×3 (14:56→20:40)
[2023-02-05 16:42] LABS: Glucose,Whole Blood 96 mg/dL (70-110)
[2023-02-05] MEDS: PRAVASTATIN SODIUM 20 MG TAB PO SCH (20:40)
[2023-02-05 21:06] LABS: Glucose,Whole Blood 90 mg/dL (70-110)
[2023-02-06 01:10] LABS: Glucose,Whole Blood 90 mg/dL (70-110)
[2023-02-06 05:05] LABS: Glucose,Whole Blood 90 mg/dL (70-110)
[2023-02-06] MEDS: SALT AND SODA MOUTHWASH 1,000 ML PO SCH ×5 (06:42→23:49)
[2023-02-06] MEDS: INSULIN ASPART (NovoLOG) 100 UNIT/ML VIAL SQ SCH ×4 (06:43→21:04)
[2023-02-06] MEDS: HYDROcodone/APAP 10-325MG 1 EACH TAB PO PRN ×3 (06:45→18:15)
[2023-02-06 08:59] LABS: Glucose,Whole Blood 75 mg/dL (70-110)
[2023-02-06] MEDS: MAG HYDROX/AL HYDROX/SIMETH 30 ML, LIDOCAINE VISCOUS 2% 30 ML, diphenhydrAMINE ELIXIR 7... PO SCH ×12 (09:09→21:04)
[2023-02-06] MEDS: PANTOPRAZOLE 40 MG/10 ML VIAL IV SCH (09:18)
[2023-02-06] MEDS: LOPERAMIDE 2 MG CAP PO SCH ×4 (09:18→21:03)
[2023-02-06] MEDS: CYANOCOBALAMIN 500 MCG TAB PO SCH (09:18)
[2023-02-06] MEDS: HYDROmorphone 1 MG/ML 1 ML SYRINGE IVP PRN ×3 (09:18→18:15)
[2023-02-06] MEDS: CHOLECALCIFEROL 25 MCG (1000 IU) TABLET PO SCH (09:19)
[2023-02-06] MEDS: METOPROLOL TARTRATE 50 MG TAB PO SCH ×2 (09:19→21:03)
[2023-02-06] MEDS: APIXABAN 5 MG TAB PO SCH ×2 (09:19→21:03)
[2023-02-06] MEDS: DIPHENOX-ATROP 2.5-0.025 MG 1 EACH TAB PO SCH ×4 (09:19→21:03)
[2023-02-06] MEDS: DIGOXIN 250 MCG TAB PO SCH (09:26)
[2023-02-06 09:49] LABS: Anisocytosis Slight; Basophils % (A) 0 %; Eosinophils % (A) 0 %; HCT 26.5 % (39.0-53.0); Lymphocytes # (A) 0.5 k/uL (1.0-4.8); Lymphocytes % (A) 10 %; MCH 34.5 pg (25.0-35.0); MCHC 33.9 g/dL (31.0-37.0); MCV 101.6 fL (80.0-100.0); Macrocytosis Moderate; Mean Platelet Volume 9.6; Monocytes # (A) 0.3 k/uL (0-1.0); Monocytes % (A) 6 %; Neutrophils # (A) 3.6 k/uL (1.3-7.7); Neutrophils % (A) 81 %; Poikilocytosis Slight; RBC 2.61 m/uL (4.30-5.90); RDW 17.6 % (11.5-15.5); WBC 4.4 k/uL (3.8-10.6)
[2023-02-06 09:57] LABS: Platelet Count 79 k/uL (150-450)
[2023-02-06 09:59] LABS: ALT 14 U/L (4-49); AST 16 U/L (17-59); African American GFR (CKD) >90 (>60 ml/min/1.73 sqM); Albumin 2.3 g/dL (3.5-5.0); Alkaline Phosphatase 105 U/L (38-126); Anion Gap 4 mmol/L; Blood Urea Nitrogen 7 mg/dL (9-20); Calcium 7.9 mg/dL (8.4-10.2); Carbon Dioxide 24 mmol/L (22-30); Chloride 112 mmol/L (98-107); Glucose 103 mg/dL (74-99); Non-African American GFR(CKD) 83 (>60 ml/min/1.73 sqM); Potassium 3.6 mmol/L (3.5-5.1); Sodium 140 mmol/L (137-145); Total Bilirubin 0.5 mg/dL (0.2-1.3); Total Protein 5.1 g/dL (6.3-8.2)
[2023-02-06 13:10] LABS: Glucose,Whole Blood 73 mg/dL (70-110)
--- NOTE | 2023-02-06 13:11 | P.PN ---
Subjective Progress Note Date: 02/06/23 Principal diagnosis: hx pancreatic cancer, thromobocytopenia At today's visit patient is resting in bed. He reports that he is not feeling well today. He reporting persisting abdominal pain and diarrhea. He states imodium and lomotil haven't really improved symptoms. He reports mild improvement in mouth sores. He remains NPO with exception of ice chips/popsicles and reports that this helps soothe the mouth sores. IV fluids were switched to D5 0.9. No other reported complaints at this time Objective - Vital Signs Vital signs: Vital Signs Temp 97.9 F 02/06/23 12:00 Pulse 79 02/06/23 12:16 Resp 18 02/06/23 12:00 BP 116/61 02/06/23 12:00 Pulse Ox 97 02/06/23 12:00 FiO2 Intake & Output 02/05/23 02/06/23 02/06/23 18:59 06:59 18:59 Intake Total 600 Balance 600 Weight 74.843 kg Intake: Intake, IV Titration 600 Amount Dextrose 5%-0.9% NaCl 1, 600 000 ml @ 50 mls/hr IV . Q20H [facility] Rx#:[id number] Other: Voiding Method Toilet Toilet # Voids 2 # Bowel Movements 2 - Constitutional General appearance: Present: no acute distress, thin - EENT Eyes: Present: anicteric sclerae, EOMI ENT: Present: hearing grossly normal - Respiratory Details: Breathing is even and unlabored - Cardiovascular Details: Skin is warm and dry - Gastrointestinal General gastrointestinal: Present: soft, tenderness. Absent: distended Localized gastrointestinal: tender: diffuse - Integumentary Integumentary: Present: pale - Musculoskeletal Musculoskeletal: Present: generalized weakness - Psychiatric Psychiatric: Present: A&O x's 3, appropriate affect, intact judgment & insight - Labs CBC & Chem 7: 02/06/23 08:50 02/06/23 08:50 Labs: Abnormal Lab Results - Last 24 Hours (Table) 02/06/23 02/06/23 Range/Units 08:50 08:50 RBC 2.61 L (4.30-5.90) m/uL Hgb 9.0 L (13.0-17.5) gm/dL Hct 26.5 L (39.0-53.0) % MCV 101.6 H (80.0-100.0) fL RDW 17.6 H (11.5-15.5) % Plt Count 79 L (150-450) k/uL Lymphocytes # 0.5 L (1.0-4.8) k/uL Chloride 112 H (98-107) mmol/L BUN 7 L (9-20) mg/dL Glucose 103 H (74-99) mg/dL Calcium 7.9 L (8.4-10.2) mg/dL AST 16 L (17-59) U/L Total Protein 5.1 L (6.3-8.2) g/dL Albumin 2.3 L (3.5-5.0) g/dL Microbiology - Last 24 Hours (Table) 02/02/23 16:37 Stool Culture - Final Stool Assessment and Plan (1) Atrial fibrillation with RVR Current Visit: Yes Status: Acute Priority: High Code(s): I48.91 - UNSPECIFIED ATRIAL FIBRILLATION SNOMED Code(s): 045054899500995 (2) Diarrhea Current Visit: Yes Status: Acute Priority: High Code(s): R19.7 - DIARRHEA, UNSPECIFIED SNOMED Code(s): 93504977 (3) Thrombocytopenia Current Visit: Yes Status: Acute Priority: High Code(s): D69.6 - THROMBOCYTOPENIA, UNSPECIFIED SNOMED Code(s): 717847248 Plan: A-fib -New onset -VQ low probability for PE -legs swollen and painful, doppler of BLE is neg for DVT -Cardiology following -on eliquis on admit anemia and thrombocytopenia -2/2 chemo -cont anticoagulation as long as plt >50k. Platelets 79,000 today -transfuse for Hgb,7, plt <50K so pt can remain on anticoagulation -Hemoglobin 9.0 today, denies episodes of bleeding Diarrhea -persists -suspect an enteritis based on physical exam findings -stool studies, c-diff negative -Imodium and lomotil ordered -IV fluids switched to D5-0.9 -Due to persisting diarrhea and abdominal pain, pt will remain NPO other then ice chips and meds. Dietitian consult and TPN ordered Continue Kools and salt and soda for oral irritation labs daily pancreatic adenocarcinoma -s/p 3 cycles of neoadjuvant chemo -dose adjustments will be necessary for pt to tolerate more treatment to get to surgery -Plan for rehab upon discharge, will plan for reevaluation upon d/c from rehab to assess readiness to resume chemo tx
[2023-02-06] MEDS ORDERED: LIDOCAINE 1% INJ 10MG/ML (5 ML VIAL-PF) SQ ONE (13:47)
--- NOTE | 2023-02-06 13:48 | P.PN ---
Subjective Progress Note Date: 02/06/23 67 year-old gentleman with past medical history significant for coronary artery disease history of PCI, atrial fibrillation, cardiomyopathy with ejection fraction of 35%, peripheral vascular disease, chronic kidney disease, hypertension and hyperlipidemia presented to the emergency department with complaints of shortness of breath and abdominal pain. * Patient had also complained of ongoing diarrhea for 4 days. Patient said his last chemotherapy was one week ago and does get diarrhea post-chemo. * Patient denied associated fever, chills * While in ER initial workup included a chest x-ray which was negative, CBC obtained showed white cell count of 4, hemoglobin 9.6, hematocrit of 28, platelet count of 59. Basic metabolic panel showed sodium 136 potassium 4.8 BUN 34 creatinine 1.55 * Patient was noted to have A. fib with RVR and was started on amiodarone drip with consultations obtained from cardiology 02/02. Patient seen and examined. Still having diarrhea. Complaining of dizziness. Denies any shortness of breath. Vital signs stable 02/03. Patient seen and examined. States he does not feel well today. Comparing of dizziness. Complaining of swelling of lower extremities. Still h aving diarrhea 02/04. Patient seen and examined. Vitals and this morning. Respiratory rate 18, heart rate 86, blood pressure 106/68, patient still complained of diarrhea, hematology oncology added Imodium 02/05 patient seen and examined. Hemoglobin this morning is 8.4, white count 4.6, sodium 138, potassium 3.5. Patient on telemetry was having some pauses, cardiology on board. Still complaining of lightheadedness. Still having diarrhea 02/06. Patient seen and examined. Vital signs temperature 98.1, heart rate 75, respirations 18, blood pressure 105-57. Patient continues to complain of abdominal pain and diarrhea. oncology has made him nothing by mouth and initiate patient on TPN REVIEW OF SYSTEMS: CONSTITUTIONAL: No fever, no malaise,. CARDIOVASCULAR: No chest pain, no palpitations, no syncope. PULMONARY: No shortness of breath, no cough, GASTROINTESTINAL: no vomiting, complaining of abdominal pain and diarrhea NEUROLOGICAL: No headaches, no weakness, PHYSICAL EXAMINATION: GENERAL: The patient is alert and oriented x3, not in any acute distress. Well developed, well nourished. HEENT: Pupils are round and equally reacting to light. EOMI. No scleral icterus. No conjunctival pallor. Normocephalic, atraumatic. No pharyngeal erythema. No thyromegaly. CARDIOVASCULAR: S1 and S2 present. No murmurs, rubs, or gallops. PULMONARY: Chest is clear to auscultation, no wheezing or crackles. ABDOMEN: Soft, nontender, nondistended, normoactive bowel sounds. No palpable organomegaly. MUSCULOSKELETAL: No joint swelling or deformity. EXTREMITIES: 2+ pitting edema of lower extremities bilaterally NEUROLOGICAL: Gross neurological examination did not reveal any focal deficits. SKIN: No rashes. Assessment and plan * Diarrhea presume infectious and malignant rule out C. diff * Atrial fibrillation with rapid ventricular response * History of pancreatic cancer * Ischemic cardiomyopathy * History of coronary artery disease * Diabetes mellitus * Chronic kidney disease * Moderate mitral regurg * Hypertension * Hyperlipidemia * Mucositis Plan; Monitor vital signs * Monitor CBC * Monitor CMP * CT abdomen done showed cholelithiasis with biliary stent in place. No acute process noted * V/Q scan negative for PE * Ultrasound of lower extremities negative for DVT * Continue Lopressor and Eliquis * Continue digoxin * Continue IV fluids * Keep nothing by mouth * Start TPN * Continue scheduled Imodium, added Lomotil * Follow-up on hematology recommendations * Follow-up in cardiology recommendations Objective - Vital Signs Vital signs: Vital Signs Temp 98.1 F 02/06/23 08:00 Pulse 75 02/06/23 08:00 Resp 18 02/06/23 08:00 BP 105/57 02/06/23 08:00 Pulse Ox 98 02/06/23 08:00 FiO2 Intake & Output 02/05/23 02/06/23 02/06/23 18:59 06:59 18:59 Intake Total 600 Balance 600 Intake: Intake, IV Titration 600 Amount Dextrose 5%-0.9% NaCl 1, 600 000 ml @ 50 mls/hr IV . Q20H [facility] Rx#:[id number] Other: Voiding Method Toilet Toilet # Voids 2 # Bowel Movements 2 - Labs CBC & Chem 7: 02/06/23 08:50 02/06/23 08:50 Labs: Microbiology - Last 24 Hours (Table) 02/02/23 16:37 Stool Culture - Final Stool
[2023-02-06 14:20] LABS: Magnesium 1.4 mg/dL (1.6-2.3); Phosphorus 2.1 mg/dL (2.5-4.5)
--- NOTE | 2023-02-06 15:00 | IR ---
EXAM: PICC PLACEMENT WITH FLUOROSCOPY AND ULTRASOUND DATE: 02/06/2023 FUNERAL DIRECTOR/EMBALMER: Dr. Meza MENTAL HEALTH PROGRAM MANAGER: None CLINICAL HISTORY: [facility] COMPARISON: None MATERIALS UTILIZED: [employer] PICC Ultrasound probe cover PICC tray FLUOROSCOPY TIME: 0.5 minutes TOTAL DOSE: 6.89 mGy SITE OF PUNCTURE: Left basilic vein PROCEDURE: The procedure, risks, and alternatives, were discussed and all questions were answered. Written infor med consent obtained. Accompanying paperwork was verified for accuracy. Directed history and physical exam performed prior to the procedure. Medication reconciliation performed by nursing personnel. Pro cedure was performed using a cap, sterile gown, sterile gloves, a large sterile sheet, hand hygiene a nd 2% chlorhexidine for cutaneous antisepsis. The patient was positioned supine on the table and prep ped and draped in usual sterile fashion. A critical pause was performed with assisting personnel just prior to the procedure with the patient's identity confirmed using 2 identifiers, confirming site an d side. A preliminary ultrasound was performed demonstrating vessel patency with forward flow and normal wave forms. An image was obtained. 5 ml of 1% lidocaine was administered at the puncture site for local anesthesia. Under direct ultrasound guidance, a 21 gauge needle was used to access the vein. A wire was advanced easily and a peel-away sheath was placed over the wire after removing the needle. A small skin incis ion was made to facilitate sheath placement. The proper catheter length was measured using the guide wire. After trimming a PICC catheter to the appropriate length, a hydrophilic introducer was placed t hrough the PICC and the catheter was advanced through the sheath. Fluoroscopy was used to guide román ter placement and verify tip position. The catheter was positioned with the tip at the SVC/right atri al junction. Function of catheter lumen was evaluated and appropriate. A sterile dressing was applie d, and the catheter was secured to the skin. The patient tolerated the procedure well without immedia te complication. Blood loss was minimal. Patient condition was stable and unchanged. Limited postprocedure radiograph demonstrates the PICC tip in appropriate position. Tip location : RA / SVC junction Type: 5 [place] dual lumen Total length: 51 cm External length: 0 cm. Acceptable lengths: 0 to 10 cm. IMPRESSION: Successful dual lumen PICC placement with tip at the SVC/right atrial junction.
[2023-02-06] MEDS ORDERED: MVI, ADULT NO.4 WITH VIT K 10 ML, TRACE (CONC-1ML/DOSE) 1 ML, POTASSIUM PHOSPHATE 15 MM... IV ONE ×7 (16:00)
[2023-02-06] MEDS ORDERED: FAT EMULSION 20% 250 ML in EMPTY BAG 1 BAG IV SCH (16:00)
[2023-02-06 17:21] LABS: Glucose,Whole Blood 104 mg/dL (70-110)
[2023-02-06 20:53] LABS: Glucose,Whole Blood 96 mg/dL (70-110)
[2023-02-06] MEDS: PRAVASTATIN SODIUM 20 MG TAB PO SCH (21:03)
[2023-02-06 22:54] LABS: Triglycerides 94.3 mg/dL (0.00-149.00)
[2023-02-06 23:17] LABS: Glucose,Whole Blood 111 mg/dL (70-110)
--- NOTE | 2023-02-07 00:34 | CT ---
EXAMINATION TYPE: CT brain wo con DATE OF EXAM: 02/07/2023 COMPARISON: None INDICATION: Pancreatic cancer DLP: 1164.4 mGycm, Automated exposure control for dose reduction was used. CONTRAST: None CT of the brain is performed utilizing 3 mm thick sections through the posterior fossa and 3 mm thick sections through the remaining calvarium. Study is performed within 24 hours of arrival to the hosp ital. No abnormal hyperdensity is present to suggest an acute intracranial hemorrhage. No mass lesion is evident. No suspicious abnormality to suggest metastatic disease. No acute infarcts are evident. Ventricles and sulci are appropriate for the patient age. There is some mucosal thickening within the left maxillary sinus. IMPRESSIONS: 1. No acute intracranial process.
[2023-02-07] MEDS: HYDROcodone/APAP 10-325MG 1 EACH TAB PO PRN ×3 (02:52→14:50)
[2023-02-07] MEDS: HYDROmorphone 1 MG/ML 1 ML SYRINGE IVP PRN ×5 (03:46→21:18)
[2023-02-07] MEDS: DEXTROSE 5%-0.9% NACL 1,000 ML IV SCH ×2 (05:40→21:17)
[2023-02-07 08:14] LABS: Glucose,Whole Blood 121 mg/dL (70-110)
[2023-02-07] MEDS: INSULIN ASPART (NovoLOG) 100 UNIT/ML VIAL SQ SCH ×4 (08:16→21:17)
[2023-02-07] MEDS: SALT AND SODA MOUTHWASH 1,000 ML PO SCH ×4 (08:21→22:27)
[2023-02-07] MEDS: DIPHENOX-ATROP 2.5-0.025 MG 1 EACH TAB PO SCH ×3 (08:33→17:18)
[2023-02-07] MEDS: PANTOPRAZOLE 40 MG/10 ML VIAL IV SCH (08:33)
[2023-02-07] MEDS: MAG HYDROX/AL HYDROX/SIMETH 30 ML, LIDOCAINE VISCOUS 2% 30 ML, diphenhydrAMINE ELIXIR 7... PO SCH ×12 (08:33→21:18)
[2023-02-07] MEDS: CHOLECALCIFEROL 25 MCG (1000 IU) TABLET PO SCH (08:33)
[2023-02-07] MEDS: CYANOCOBALAMIN 500 MCG TAB PO SCH (08:33)
[2023-02-07] MEDS: LOPERAMIDE 2 MG CAP PO SCH ×4 (08:33→21:18)
[2023-02-07] MEDS: DIGOXIN 250 MCG TAB PO SCH (08:33)
[2023-02-07] MEDS: APIXABAN 5 MG TAB PO SCH ×2 (08:33→21:19)
[2023-02-07] MEDS: METOPROLOL TARTRATE 50 MG TAB PO SCH ×2 (08:33→21:19)
[2023-02-07 09:15] LABS: Anisocytosis Slight; HCT 24.4 % (39.0-53.0); HGB 8.4 gm/dL (13.0-17.5); MCH 35.4 pg (25.0-35.0); MCHC 34.3 g/dL (31.0-37.0); MCV 103.1 fL (80.0-100.0); Macrocytosis Moderate; Mean Platelet Volume 8.3; Poikilocytosis Slight; RBC 2.36 m/uL (4.30-5.90); RDW 17.4 % (11.5-15.5); WBC 7.1 k/uL (3.8-10.6)
[2023-02-07 09:28] LABS: Ionized Calcium 5.2 mg/dL (4.5-5.3)
[2023-02-07 09:31] LABS: Albumin 2.2 g/dL (3.5-5.0); Calcium 7.9 mg/dL (8.4-10.2); Magnesium 1.5 mg/dL (1.6-2.3); Phosphorus 2.2 mg/dL (2.5-4.5); Potassium 3.5 mmol/L (3.5-5.1); Total Bilirubin 0.4 mg/dL (0.2-1.3)
[2023-02-07 09:39] LABS: Platelet Count 87 k/uL (150-450)
[2023-02-07] MEDS ORDERED: POTASSIUM PHOSPHATE 10 MMOL in SODIUM CHLORIDE 0.9% 100 ML IV ONE (10:30)
--- NOTE | 2023-02-07 11:09 | CDI ---
Documentation Clarification Form Date: 02/07/2023 10:36:27 AM From: Destiny Alcala RN CCDS Phone: [phone] Admit Date: 01/31/2023 4:56:00 PM Patient Name: Diaz Riley Visit Number: [id number] Discharge Date: ATTENTION: The Clinical Documentation Specialists (CDI) and [facility] Coding Staff appreciate your assistance in clarifying documentation. Please respond to the clarification below the line at the bottom and electronically sign. The CDI & [facility] Coding staff will review the response and follow-up if needed. Please note: Queries are made part of the Legal Health Record. If you have any questions, please contact the author of this message via ITS. Dr. Bandar Ruby Conflicting documentation has been found in the medical record. As attending physician, please provide clarification. Suspect an enteritis, versus chemotherapy induced diarrhea secondary to irinotecan, Hematology note 02/05 Diarrhea presume infectious and malignant rule out C.diff, Medicine note, 02/06 History/Risk Factors: 67-year old male presents to the ED with shortness of breath and abdominal pain. Medical History: Pancreatic cancer, DM, HLD, Atrial Fib and HTN. 02/01, H&P Clinical Indicators: VSS: 01/31 B/P 105/78, Temp 97.8 F Oral, HR 133, RR 18, SpO2 966% room air Labs 01/31: Wbc 5.9, Stl Cryptosporidium Ag - Negative, Stool Giardia Source Stool, Stl Giardia Antigen Negative, C. difficile Intrp Neg. 02/01/H&: On going diarrhea for four days. Last chemotherapy was one week ago. Patient does get diarrhea post- chemotherapy. Treatment: NPO except medications and ice chips. 01/31 Pepcid IV x 1; Dilaudid IV x 1; Zofran IV x 1; Zofran 4mg IV prn, 02/01 0.9NS 50cc/hr IV, 02/04 Imodium po qid danilo, Lomotil 1 po qid danilo, 02/07 Potassium IV x 1. Please clarify which diagnosis is most appropriate: [ ] Chemotherapy induced diarrhea [ x] Infectious diarrhea [ ] Enteritis diarrhea [ ] Other (please specify) [ ] Unable to determine (Template Last Revised: December 2020) MTDD
[2023-02-07 11:52] LABS: Glucose,Whole Blood 93 mg/dL (70-110)
[2023-02-07] MEDS: MAGNESIUM SULFATE-D5W PMX 1 GM in DEXTROSE/WATER 1 100ML.BAG IVPB SCH ×2 (12:06→13:26)
--- NOTE | 2023-02-07 12:57 | XR ---
EXAMINATION TYPE: XR sacrum coccyx DATE OF EXAM: 02/07/2023 COMPARISON: CT abdomen and pelvis 6 days ago. HISTORY: Fall injury yesterday with sacral and coccygeal pain TECHNIQUE: 2 views of sacrum and coccyx. FINDINGS: No new acute displaced fracture in the sacrum or coccyx. Sacral alar grossly intact. Occasi onal scattered tiny pelvic phlebolith is redemonstrated bilaterally. Narrowing of the bilateral sacro iliac joints is redemonstrated. IMPRESSION: As above.
--- NOTE | 2023-02-07 13:45 | P.PN ---
Subjective Progress Note Date: 02/07/23 67 year-old gentleman with past medical history significant for coronary artery disease history of PCI, atrial fibrillation, cardiomyopathy with ejection fraction of 35%, peripheral vascular disease, chronic kidney disease, hypertension and hyperlipidemia presented to the emergency department with complaints of shortness of breath and abdominal pain. * Patient had also complained of ongoing diarrhea for 4 days. Patient said his last chemotherapy was one week ago and does get diarrhea post-chemo. * Patient denied associated fever, chills * While in ER initial workup included a chest x-ray which was negative, CBC obtained showed white cell count of 4, hemoglobin 9.6, hematocrit of 28, platelet count of 59. Basic metabolic panel showed sodium 136 potassium 4.8 BUN 34 creatinine 1.55 * Patient was noted to have A. fib with RVR and was started on amiodarone drip with consultations obtained from cardiology 02/02. Patient seen and examined. Still having diarrhea. Complaining of dizziness. Denies any shortness of breath. Vital signs stable 02/03. Patient seen and examined. States he does not feel well today. Comparing of dizziness. Complaining of swelling of lower extremities. Still h aving diarrhea 02/04. Patient seen and examined. Vitals and this morning. Respiratory rate 18, heart rate 86, blood pressure 106/68, patient still complained of diarrhea, hematology oncology added Imodium 02/05 patient seen and examined. Hemoglobin this morning is 8.4, white count 4.6, sodium 138, potassium 3.5. Patient on telemetry was having some pauses, cardiology on board. Still complaining of lightheadedness. Still having diarrhea 02/06. Patient seen and examined. Vital signs temperature 98.1, heart rate 75, respirations 18, blood pressure 105-57. Patient continues to complain of abdominal pain and diarrhea. oncology has made him nothing by mouth and initiate patient on TPN . Patient seen and examined. Patient had a fall overnight, CT head was negative for any acute intracranial process, complaining of pain in the pelvic area, ordered x-ray of the pelvis. Diarrhea has improved REVIEW OF SYSTEMS: CONSTITUTIONAL: No fever, no malaise,. CARDIOVASCULAR: No chest pain, no palpitations, no syncope. PULMONARY: No shortness of breath, no cough, GASTROINTESTINAL: no vomiting, no nausea NEUROLOGICAL: No headaches, no weakness, PHYSICAL EXAMINATION: GENERAL: The patient is alert and oriented x3, not in any acute distress. Well developed, well nourished. HEENT: Pupils are round and equally reacting to light. EOMI. No scleral icterus. No conjunctival pallor. Normocephalic, atraumatic. No pharyngeal erythema. No thyromegaly. CARDIOVASCULAR: S1 and S2 present. No murmurs, rubs, or gallops. PULMONARY: Chest is clear to auscultation, no wheezing or crackles. ABDOMEN: Soft, nontender, nondistended, normoactive bowel sounds. No palpable organomegaly. MUSCULOSKELETAL: No joint swelling or deformity. EXTREMITIES: 2+ pitting edema of lower extremities bilaterally NEUROLOGICAL: Gross neurological examination did not reveal any focal deficits. SKIN: No rashes. Assessment and plan * Diarrhea presume infectious and malignant rule out C. diff * Atrial fibrillation with rapid ventricular response * History of pancreatic cancer * Ischemic cardiomyopathy * History of coronary artery disease * Diabetes mellitus * Chronic kidney disease * Moderate mitral regurg * Hypertension * Hyperlipidemia * Mucositis Plan; Monitor vital signs * Monitor CBC * Monitor CMP * CT abdomen done showed cholelithiasis with biliary stent in place. No acute process noted * V/Q scan negative for PE * Ultrasound of lower extremities negative for DVT * Continue Lopressor and Eliquis * Continue digoxin * Continue IV fluids * Continue TPN * X-ray of pelvis ordered * Continue scheduled Imodium, Lomotil * Follow-up on hematology recommendations * Follow-up in cardiology recommendations Objective - Vital Signs Vital signs: Vital Signs Temp 97.8 F 02/07/23 08:00 Pulse 73 02/07/23 08:00 Resp 18 02/07/23 08:00 BP 109/61 02/07/23 08:00 Pulse Ox 95 02/07/23 12:36 FiO2 Intake & Output 02/06/23 02/07/23 02/07/23 18:59 06:59 18:59 Intake Total 240 Balance 240 Weight 74.843 kg Intake: Oral 240 Other: # Voids 2 1 1 # Bowel Movements 2 1 - Labs CBC & Chem 7: 02/07/23 08:38 02/07/23 08:38 Labs: Abnormal Lab Results - Last 24 Hours (Table) 02/06/23 02/06/23 02/07/23 Range/Units 08:50 23:16 08:12 RBC (4.30-5.90) m/uL Hgb (13.0-17.5) gm/dL Hct (39.0-53.0) % MCV (80.0-100.0) fL MCH (25.0-35.0) pg RDW (11.5-15.5) % Plt Count (150-450) k/uL Chloride (98-107) mmol/L BUN (9-20) mg/dL Glucose (74-99) mg/dL POC Glucose (mg/dL) 111 H 121 H (70-110) mg/dL Calcium (8.4-10.2) mg/dL Phosphorus 2.1 L (2.5-4.5) mg/dL Magnesium 1.4 L (1.6-2.3) mg/dL Total Protein (6.3-8.2) g/dL Albumin (3.5-5.0) g/dL 02/07/23 02/07/23 Range/Units 08:38 08:38 RBC 2.36 L (4.30-5.90) m/uL Hgb 8.4 L (13.0-17.5) gm/dL Hct 24.4 L (39.0-53.0) % MCV 103.1 H (80.0-100.0) fL MCH 35.4 H (25.0-35.0) pg RDW 17.4 H (11.5-15.5) % Plt Count 87 L (150-450) k/uL Chloride 109 H (98-107) mmol/L BUN 8 L (9-20) mg/dL Glucose 119 H (74-99) mg/dL POC Glucose (mg/dL) (70-110) mg/dL Calcium 7.9 L (8.4-10.2) mg/dL Phosphorus 2.2 L (2.5-4.5) mg/dL Magnesium 1.5 L (1.6-2.3) mg/dL Total Protein 5.0 L (6.3-8.2) g/dL Albumin 2.2 L (3.5-5.0) g/dL Microbiology - Last 24 Hours (Table) 02/02/23 16:37 Stool Culture - Final Stool
--- NOTE | 2023-02-07 14:25 | P.PN ---
Subjective Progress Note Date: 02/07/23 Principal diagnosis: hx pancreatic cancer, thromobocytopenia At today's visit patient is sitting up on the edge of the bed. He reports that he is a little improved today. He reports that the diarrhea has improved that he is starting to feel hungry for the first time in a while. He denies nausea and vomiting. Patient reports that he had a mechanical fall last night or pain over the IV bleeding that he landed on his tailbone. He denies hitting his head. Reports pain along coccyx. CT head is negative for acute intracranial process. He remains NPO with exception of ice chips/popsicles. TPN has been started. No other reported complaints at this time Objective - Vital Signs Vital signs: Vital Signs Temp 97.8 F 02/07/23 08:00 Pulse 73 02/07/23 08:00 Resp 18 02/07/23 08:00 BP 109/61 02/07/23 08:00 Pulse Ox 95 02/07/23 12:36 FiO2 Intake & Output 02/06/23 02/07/23 02/07/23 18:59 06:59 18:59 Intake Total 240 Balance 240 Weight 74.843 kg Intake: Oral 240 Other: # Voids 2 1 1 # Bowel Movements 2 1 - Constitutional General appearance: Present: no acute distress, thin - EENT Eyes: Present: anicteric sclerae, EOMI ENT: Present: hearing grossly normal - Respiratory Details: Breathing is even and unlabored - Cardiovascular Details: Skin is warm and dry - Gastrointestinal General gastrointestinal: Present: soft, tenderness Localized gastrointestinal: tender: diffuse - Integumentary Integumentary: Present: pale - Musculoskeletal Musculoskeletal: Present: generalized weakness - Psychiatric Psychiatric: Present: A&O x's 3, appropriate affect, intact judgment & insight - Labs CBC & Chem 7: 02/07/23 08:38 02/07/23 08:38 Labs: Abnormal Lab Results - Last 24 Hours (Table) 02/06/23 02/06/23 02/07/23 Range/Units 08:50 23:16 08:12 RBC (4.30-5.90) m/uL Hgb (13.0-17.5) gm/dL Hct (39.0-53.0) % MCV (80.0-100.0) fL MCH (25.0-35.0) pg RDW (11.5-15.5) % Plt Count (150-450) k/uL Chloride (98-107) mmol/L BUN (9-20) mg/dL Glucose (74-99) mg/dL POC Glucose (mg/dL) 111 H 121 H (70-110) mg/dL Calcium (8.4-10.2) mg/dL Phosphorus 2.1 L (2.5-4.5) mg/dL Magnesium 1.4 L (1.6-2.3) mg/dL Total Protein (6.3-8.2) g/dL Albumin (3.5-5.0) g/dL 02/07/23 02/07/23 Range/Units 08:38 08:38 RBC 2.36 L (4.30-5.90) m/uL Hgb 8.4 L (13.0-17.5) gm/dL Hct 24.4 L (39.0-53.0) % MCV 103.1 H (80.0-100.0) fL MCH 35.4 H (25.0-35.0) pg RDW 17.4 H (11.5-15.5) % Plt Count 87 L (150-450) k/uL Chloride 109 H (98-107) mmol/L BUN 8 L (9-20) mg/dL Glucose 119 H (74-99) mg/dL POC Glucose (mg/dL) (70-110) mg/dL Calcium 7.9 L (8.4-10.2) mg/dL Phosphorus 2.2 L (2.5-4.5) mg/dL Magnesium 1.5 L (1.6-2.3) mg/dL Total Protein 5.0 L (6.3-8.2) g/dL Albumin 2.2 L (3.5-5.0) g/dL Microbiology - Last 24 Hours (Table) 02/02/23 16:37 Stool Culture - Final Stool - Imaging and Cardiology CT Scan - head: report reviewed Assessment and Plan (1) Atrial fibrillation with RVR Current Visit: Yes Status: Acute Priority: High Code(s): I48.91 - UNSPECIFIED ATRIAL FIBRILLATION SNOMED Code(s): 230517639337463 (2) Diarrhea Current Visit: Yes Status: Acute Priority: High Code(s): R19.7 - DIARRHEA, UNSPECIFIED SNOMED Code(s): 91449246 (3) Thrombocytopenia Current Visit: Yes Status: Acute Priority: High Code(s): D69.6 - THROMBOCYTOPENIA, UNSPECIFIED SNOMED Code(s): 571536958 Plan: A-fib -New onset -VQ low probability for PE -legs swollen and painful, doppler of BLE is neg for DVT -Cardiology following -on eliquis on admit anemia and thrombocytopenia -2/2 chemo -cont anticoagulation as long as plt >50k. Platelets 87,000 today -transfuse for Hgb,7, plt <50K so pt can remain on anticoagulation -Hemoglobin 8.4 today, denies episodes of bleeding Diarrhea -persists, but improving -suspect an enteritis based on physical exam findings -stool studies, c-diff negative -Continue Imodium and lomotil -Due to persisting diarrhea and abdominal pain, pt will remain NPO other than ice chips and meds. Dietitian consulted and TPN has been started. As abdominal pain and diarrhea improve will slowly advance diet Continue Kools and salt and soda for oral irritation labs daily pancreatic adenocarcinoma -s/p 3 cycles of neoadjuvant chemo -dose adjustments will be necessary for pt to tolerate more treatment to get to surgery -Plan for rehab upon discharge, will plan for reevaluation upon d/c from rehab to assess readiness to resume chemo tx
[2023-02-07] MEDS ORDERED: POTASSIUM PHOSPHATE IV SCH ×7 (16:00)
[2023-02-07] MEDS ORDERED: MAGNESIUM SULFATE IV SCH ×7 (16:00)
[2023-02-07] MEDS ORDERED: SODIUM ACETATE IV SCH ×7 (16:00)
[2023-02-07] MEDS ORDERED: [UNRECOGNIZED DRUG - OTHER] IV SCH ×7 (16:00)
[2023-02-07 16:34] LABS: Glucose,Whole Blood 124 mg/dL (70-110)
[2023-02-07 20:04] LABS: Glucose,Whole Blood 93 mg/dL (70-110)
[2023-02-07] MEDS: PRAVASTATIN SODIUM 20 MG TAB PO SCH (21:19)
[2023-02-08] MEDS: HYDROcodone/APAP 10-325MG 1 EACH TAB PO PRN ×3 (00:37→20:12)
[2023-02-08] MEDS: DIPHENOX-ATROP 2.5-0.025 MG 1 EACH TAB PO SCH ×5 (02:45→20:13)
[2023-02-08] MEDS: SALT AND SODA MOUTHWASH 1,000 ML PO SCH ×5 (02:46→20:13)
[2023-02-08 06:05] LABS: Glucose,Whole Blood 130 mg/dL (70-110)
[2023-02-08] MEDS: INSULIN ASPART (NovoLOG) 100 UNIT/ML VIAL SQ SCH ×4 (06:16→22:43)
[2023-02-08 07:55] LABS: Glucose,Whole Blood 173 mg/dL (70-110)
[2023-02-08 08:23] LABS: African American GFR (CKD) >90 (>60 ml/min/1.73 sqM); Anion Gap 6 mmol/L; Blood Urea Nitrogen 6 mg/dL (9-20); Calcium 8.2 mg/dL (8.4-10.2); Carbon Dioxide 23 mmol/L (22-30); Chloride 109 mmol/L (98-107); Glucose 133 mg/dL (74-99); Magnesium 1.7 mg/dL (1.6-2.3); Non-African American GFR(CKD) 85 (>60 ml/min/1.73 sqM); Phosphorus 2.7 mg/dL (2.5-4.5); Potassium 3.3 mmol/L (3.5-5.1); Sodium 138 mmol/L (137-145)
[2023-02-08] MEDS: APIXABAN 5 MG TAB PO SCH ×2 (09:45→20:13)
[2023-02-08] MEDS: DIGOXIN 250 MCG TAB PO SCH (09:45)
[2023-02-08] MEDS: CHOLECALCIFEROL 25 MCG (1000 IU) TABLET PO SCH (09:45)
[2023-02-08] MEDS: LOPERAMIDE 2 MG CAP PO SCH ×4 (09:46→20:15)
[2023-02-08] MEDS: CYANOCOBALAMIN 500 MCG TAB PO SCH (09:46)
[2023-02-08] MEDS: HYDROmorphone 1 MG/ML 1 ML SYRINGE IVP PRN ×3 (09:46→23:04)
[2023-02-08] MEDS: METOPROLOL TARTRATE 50 MG TAB PO SCH ×2 (09:46→20:12)
[2023-02-08] MEDS: PANTOPRAZOLE 40 MG/10 ML VIAL IV SCH (09:46)
[2023-02-08] MEDS: MAG HYDROX/AL HYDROX/SIMETH 30 ML, LIDOCAINE VISCOUS 2% 30 ML, diphenhydrAMINE ELIXIR 7... PO SCH ×12 (09:47→20:13)
[2023-02-08 10:12] LABS: Anisocytosis Slight; Basophils % (A) 0 %; Eosinophils % (A) 1 %; HCT 24.9 % (39.0-53.0); HGB 8.7 gm/dL (13.0-17.5); Lymphocytes # (A) 0.8 k/uL (1.0-4.8); Lymphocytes % (A) 10 %; MCV 102.9 fL (80.0-100.0); Macrocytosis Moderate; Mean Platelet Volume 9.3; Monocytes # (A) 0.5 k/uL (0-1.0); Monocytes % (A) 6 %; Neutrophils % (A) 80 %; Platelet Count 101 k/uL (150-450); Poikilocytosis Moderate; RBC 2.41 m/uL (4.30-5.90); RDW 17.5 % (11.5-15.5); WBC 7.4 k/uL (3.8-10.6)
[2023-02-08] MEDS ORDERED: MAGNESIUM SULFATE-D5W PMX 1 GM in DEXTROSE/WATER 1 100ML.BAG IVPB ONE (11:00)
[2023-02-08 11:51] LABS: Glucose,Whole Blood 155 mg/dL (70-110)
[2023-02-08] MEDS: POTASSIUM CHLORIDE 20 MEQ in WATER FOR INJECTION 1 100ML.BAG IVPB SCH ×2 (12:05→14:27)
--- NOTE | 2023-02-08 13:01 | P.PN ---
Subjective Progress Note Date: 02/08/23 Principal diagnosis: hx pancreatic cancer, thromobocytopenia At today's visit patient is resting comfortably in bed. He reports that he is Having continued improvement in symptoms. He reports that abdominal pain is improved. He reports one episode of diarrhea last night but has not had any diarrhea this morning. He also reports the mouth sores have improved. Denies nausea vomiting fever and chills. He remains NPO with exception of ice chips/popsicles. TPN has been started. If symptoms continue to improve, will start clear liquid diet in the morning. No other reported complaints at this time Objective - Vital Signs Vital signs: Vital Signs Temp 97.9 F 02/08/23 08:00 Pulse 68 02/08/23 08:00 Resp 18 02/08/23 08:00 BP 136/59 02/08/23 08:00 Pulse Ox 100 02/08/23 08:00 FiO2 Intake & Output 02/07/23 02/08/23 02/08/23 18:59 06:59 18:59 Intake Total 240 634.5 Balance 240 634.5 Weight 74.843 kg Intake: Intake, IV Titration 634.5 Amount Potassium Phosphate 15 634.5 mmol Sodium Acetate 30 meq Magnesium Sulfate gm 0.5 gm Calcium Gluconate 1 gm In Amino Acids 5 %/ Dextrose 20 % 1,000 ml @ 71 mls/hr IV .BY DURATION [facility] Rx#:[id number] Oral 240 Other: # Voids 1 3 # Bowel Movements 4 2 - Constitutional General appearance: Present: no acute distress, thin - EENT Eyes: Present: anicteric sclerae, EOMI ENT: Present: hearing grossly normal - Respiratory Details: Breathing is even and unlabored - Cardiovascular Details: Skin is warm and dry - Gastrointestinal General gastrointestinal: Present: soft, tenderness Localized gastrointestinal: tender: epigastric periumbilical - Integumentary Integumentary: Present: pale - Neurologic Neurologic: Present: CNII-XII intact - Musculoskeletal Musculoskeletal: Present: generalized weakness - Psychiatric Psychiatric: Present: A&O x's 3, appropriate affect, intact judgment & insight - Labs CBC & Chem 7: 02/08/23 09:39 02/08/23 07:32 Labs: Abnormal Lab Results - Last 24 Hours (Table) 02/07/23 02/08/23 02/08/23 Range/Units 16:32 06:03 07:32 RBC (4.30-5.90) m/uL Hgb (13.0-17.5) gm/dL Hct (39.0-53.0) % MCV (80.0-100.0) fL MCH (25.0-35.0) pg RDW (11.5-15.5) % Plt Count (150-450) k/uL Lymphocytes # (1.0-4.8) k/uL Potassium 3.3 L (3.5-5.1) mmol/L Chloride 109 H (98-107) mmol/L BUN 6 L (9-20) mg/dL Glucose 133 H (74-99) mg/dL POC Glucose (mg/dL) 124 H 130 H (70-110) mg/dL Calcium 8.2 L (8.4-10.2) mg/dL 02/08/23 02/08/23 02/08/23 Range/Units 07:53 09:39 11:49 RBC 2.41 L (4.30-5.90) m/uL Hgb 8.7 L (13.0-17.5) gm/dL Hct 24.9 L (39.0-53.0) % MCV 102.9 H (80.0-100.0) fL MCH 36.0 H (25.0-35.0) pg RDW 17.5 H (11.5-15.5) % Plt Count 101 L (150-450) k/uL Lymphocytes # 0.8 L (1.0-4.8) k/uL Potassium (3.5-5.1) mmol/L Chloride (98-107) mmol/L BUN (9-20) mg/dL Glucose (74-99) mg/dL POC Glucose (mg/dL) 173 H 155 H (70-110) mg/dL Calcium (8.4-10.2) mg/dL Microbiology - Last 24 Hours (Table) 02/02/23 16:37 Stool Culture - Final Stool Assessment and Plan (1) Atrial fibrillation with RVR Current Visit: Yes Status: Acute Priority: High Code(s): I48.91 - UNSPECIFIED ATRIAL FIBRILLATION SNOMED Code(s): 315935710236865 (2) Diarrhea Current Visit: Yes Status: Acute Priority: High Code(s): R19.7 - DIARRHEA, UNSPECIFIED SNOMED Code(s): 19675768 (3) Thrombocytopenia Current Visit: Yes Status: Acute Priority: High Code(s): D69.6 - THROMBOCYTOPENIA, UNSPECIFIED SNOMED Code(s): 996293140 Plan: A-fib -New onset -VQ low probability for PE -legs swollen and painful, doppler of BLE is neg for DVT -Cardiology following -on eliquis on admit anemia and thrombocytopenia -2/2 chemo -cont anticoagulation as long as plt >50k. Platelets 101,000 today -Hemoglobin 8.7 today, denies episodes of bleeding -transfuse for Hgb<7, plt <50K so pt can remain on anticoagulation Diarrhea -Diarrhea improving, no diarrhea this morning -suspect an enteritis based on physical exam findings -stool studies, c-diff negative -Continue Imodium and lomotil -NPO other than ice chips and meds. TPN has been started. If symptoms continue to improve, will advance diet to clear liquids in the morning. Continue Kools and salt and soda for oral irritation labs daily pancreatic adenocarcinoma -s/p 3 cycles of neoadjuvant chemo -dose adjustments will be necessary for pt to tolerate more treatment to get to surgery -Plan for rehab upon discharge, will plan for reevaluation upon d/c from rehab to assess readiness to resume chemo tx
--- NOTE | 2023-02-08 14:19 | P.PN ---
Subjective This is a pleasant 67 years old male with multiple medical problems who was admitted initially on 02/01 with shortness of breath and borderline blood pressure 105/78 thought secondary to A. fib and RVR as his heart rate was around 133. Patient has been able to by pharmacognosy teacher and his dose of metoprolol increased from 50 mg up to 100 mg and continued on digoxin 250 mg as well as he is on liquids 5 mg. Patient with recent history of pancreatic cancer diagnosed last September and his been having chronic abdominal pain in the epigastrium about 710 similar since then. He has some mouth sores and bicytopenia secondary to recent chemotherapy, oncology team on the case. He is kept nothing by mouth and TPN is running partially because of his mouth sores. He still have bouts of diarrhea but states that he started getting better today and more formed. C. diff is negative. Patient says that his weakness is better than last week, he fell 2 days ago, Cedergren was negative at that time. He is fully awake and oriented denies chest pain or dyspnea. He still feels generally weak and he still have abdominal pain as above. No urinary complaint s. Vitas looks stable. Patient is afebrile. Hemoglobin 8.4 and platelet count improved to 83. CT of the abdomen and pelvis showing cholelithiasis with biliary stent in place and fluid distention of the colon was closed with diarrhea. Patient currently on D5 normal saline at 50 mL per hour and Eliquis 5 mg. We will check vitamin B12 and vitamin D. Also will check stool for elastase Objective - Vital Signs Vital signs: Vital Signs Temp 97.9 F 02/08/23 08:00 Pulse 68 02/08/23 08:00 Resp 18 02/08/23 08:00 BP 136/59 02/08/23 08:00 Pulse Ox 100 02/08/23 08:00 FiO2 Intake & Output 02/07/23 02/08/23 02/08/23 18:59 06:59 18:59 Intake Total 240 634.5 Balance 240 634.5 Weight 74.843 kg 74.843 kg Intake: Intake, IV Titration 634.5 Amount Potassium Phosphate 15 634.5 mmol Sodium Acetate 30 meq Magnesium Sulfate gm 0.5 gm Calcium Gluconate 1 gm In Amino Acids 5 %/ Dextrose 20 % 1,000 ml @ 71 mls/hr IV .BY DURATION [facility] Rx#:[id number] Oral 240 Other: # Voids 1 3 # Bowel Movements 4 2 - Exam GENERAL: The patient is alert and oriented x3, not in any acute distress. Well developed, well nourished. HEENT: Pupils are round and equally reacting to light. EOMI. No scleral icterus. No conjunctival pallor. Normocephalic, atraumatic. No pharyngeal erythema. No thyromegaly. CARDIOVASCULAR: S1 and S2 present. No murmurs, rubs, or gallops. PULMONARY: Chest is clear to auscultation, no wheezing or crackles. -ABDOMEN: Soft, epigastric tenderness (chronic) no rebound tenderness or guarding, nondistended, normoactive bowel sounds. No palpable organomegaly. MUSCULOSKELETAL: No joint swelling or deformity. -EXTREMITIES: No cyanosis, clubbing, or pedal edema. Left arm PICC line with the patient in place NEUROLOGICAL: Gross neurological examination did not reveal any focal deficits. SKIN: No rashes. no petechiae. - Labs CBC & Chem 7: 02/08/23 09:39 02/08/23 07:32 Labs: Abnormal Lab Results - Last 24 Hours (Table) 02/07/23 02/08/23 02/08/23 Range/Units 16:32 06:03 07:32 RBC (4.30-5.90) m/uL Hgb (13.0-17.5) gm/dL Hct (39.0-53.0) % MCV (80.0-100.0) fL MCH (25.0-35.0) pg RDW (11.5-15.5) % Plt Count (150-450) k/uL Lymphocytes # (1.0-4.8) k/uL Potassium 3.3 L (3.5-5.1) mmol/L Chloride 109 H (98-107) mmol/L BUN 6 L (9-20) mg/dL Glucose 133 H (74-99) mg/dL POC Glucose (mg/dL) 124 H 130 H (70-110) mg/dL Calcium 8.2 L (8.4-10.2) mg/dL 02/08/23 02/08/23 02/08/23 Range/Units 07:53 09:39 11:49 RBC 2.41 L (4.30-5.90) m/uL Hgb 8.7 L (13.0-17.5) gm/dL Hct 24.9 L (39.0-53.0) % MCV 102.9 H (80.0-100.0) fL MCH 36.0 H (25.0-35.0) pg RDW 17.5 H (11.5-15.5) % Plt Count 101 L (150-450) k/uL Lymphocytes # 0.8 L (1.0-4.8) k/uL Potassium (3.5-5.1) mmol/L Chloride (98-107) mmol/L BUN (9-20) mg/dL Glucose (74-99) mg/dL POC Glucose (mg/dL) 173 H 155 H (70-110) mg/dL Calcium (8.4-10.2) mg/dL Microbiology - Last 24 Hours (Table) 02/02/23 16:37 Stool Culture - Final Stool Assessment and Plan Assessment: A. 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 Continue same treatment. Continue with symptomatic treatment. Resume home medication. Monitor labs and vitals. DVT and GI prophylaxis. Further recommendations as per clinical course of the patie nt DVT prophylaxis: Eliquis GI Prophylaxis: Ppi PT/OT: Recommended subacute rehab Prognosis is guarded
[2023-02-08] MEDS: DEXTROSE 5%-0.9% NACL 1,000 ML IV SCH (16:01)
[2023-02-08] MEDS: [UNRECOGNIZED DRUG - OTHER] IV SCH ×7 (16:10)
[2023-02-08] MEDS: SODIUM ACETATE IV SCH ×7 (16:10)
[2023-02-08] MEDS: MAGNESIUM SULFATE IV SCH ×7 (16:10)
[2023-02-08] MEDS: POTASSIUM PHOSPHATE IV SCH ×7 (16:10)
[2023-02-08 16:46] LABS: Glucose,Whole Blood 166 mg/dL (70-110)
[2023-02-08 16:52] LABS: Vitamin B12 >3600.0 pg/mL (200.0-944.0)
[2023-02-08] MEDS: PRAVASTATIN SODIUM 20 MG TAB PO SCH (20:13)
[2023-02-08 21:48] LABS: Glucose,Whole Blood 110 mg/dL (70-110)
[2023-02-09 02:00] LABS: Glucose,Whole Blood 107 mg/dL (70-110)
[2023-02-09] MEDS: HYDROcodone/APAP 10-325MG 1 EACH TAB PO PRN ×2 (04:42→14:05)
[2023-02-09] MEDS: SALT AND SODA MOUTHWASH 1,000 ML PO SCH ×6 (06:06→22:41)
[2023-02-09 06:19] LABS: Glucose,Whole Blood 100 mg/dL (70-110)
[2023-02-09] MEDS: INSULIN ASPART (NovoLOG) 100 UNIT/ML VIAL SQ SCH ×4 (07:35→20:51)
--- NOTE | 2023-02-09 08:56 | CDI ---
Documentation Clarification Form Date: 02/09/2023 8:34:37 AM From: Destiny Alcala Phone: [phone] Admit Date: 01/31/2023 4:56:00 PM Patient Name: Diaz Riley Visit Number: [id number] Discharge Date: ATTENTION: The Clinical Documentation Specialists (CDI) and [facility] Coding Staff appreciate your assistance in clarifying documentation. Please respond to the clarification below the line at the bottom and electronically sign. The CDI & [facility] Coding staff will review the response and follow-up if needed. Please note: Queries are made part of the Legal Health Record. If you have any questions, please contact the author of this message via ITS. Dr. Charlotte Harley MD Your patient has decreased wbc, rbc and platelets on 02/02, 02/03 and 02/04 documented in the labs. Based on this information and the findings below, is there an additional diagnosis that is clinically appropriate for this patient? History/Risk factors: 67 year old male with shortness of breath and ongoing diarrhea for four days. Medical History: Pancreatic cancer last chemotherapy was one week prior, DM, HLD, HTN and Atrial fib. 02/01, H&P Clinical indicators: Labs: 02/02 Wbc 2.2 Rbc 2.75 Platelets 59 02/03 Wbc 2.4 Rbc 2.40 Platelets 42 02/04 Wbc 3.6 Rbc 2.77 Platelets 79 02/03, Oncology: Anemia and thrombocytopenia secondary to chemotherapy. Treatment: 02/03 1 Unit Platelets, Daily CBC Is there an additional diagnosis that is clinically appropriate for this patient? [ ] Pancytopenia due to chemotherapy [ ] Pancytopenia due to other, please specify [ ] Other condition, please specify ____ [ ] Unable to determine (Template Last Revised: December 2020) MTDD
[2023-02-09 09:54] LABS: Glucose,Whole Blood 95 mg/dL (70-110)
[2023-02-09] MEDS ORDERED: LOPERAMIDE 2 MG CAP PO PRN (10:42)
[2023-02-09] MEDS: CHOLECALCIFEROL 25 MCG (1000 IU) TABLET PO SCH (10:50)
[2023-02-09] MEDS: CYANOCOBALAMIN 500 MCG TAB PO SCH (10:50)
[2023-02-09] MEDS: HYDROmorphone 1 MG/ML 1 ML SYRINGE IVP PRN (10:51)
[2023-02-09] MEDS: DIGOXIN 250 MCG TAB PO SCH (10:52)
[2023-02-09] MEDS: METOPROLOL TARTRATE 50 MG TAB PO SCH ×2 (10:52→20:45)
[2023-02-09] MEDS: APIXABAN 5 MG TAB PO SCH ×2 (10:52→20:45)
[2023-02-09] MEDS: PANTOPRAZOLE 40 MG/10 ML VIAL IV SCH (10:52)
[2023-02-09 11:47] LABS: African American GFR (CKD) >90 (>60 ml/min/1.73 sqM); Anion Gap 6 mmol/L; Blood Urea Nitrogen 7 mg/dL (9-20); Calcium 8.2 mg/dL (8.4-10.2); Carbon Dioxide 22 mmol/L (22-30); Chloride 111 mmol/L (98-107); Glucose 87 mg/dL (74-99); Magnesium 1.7 mg/dL (1.6-2.3); Non-African American GFR(CKD) >90 (>60 ml/min/1.73 sqM); Phosphorus 2.5 mg/dL (2.5-4.5); Potassium 3.8 mmol/L (3.5-5.1); Sodium 139 mmol/L (137-145)
[2023-02-09] MEDS: DIPHENOX-ATROP 2.5-0.025 MG 1 EACH TAB PO SCH (12:15)
[2023-02-09] MEDS: LOPERAMIDE 2 MG CAP PO SCH (12:15)
[2023-02-09] MEDS: POTASSIUM PHOSPHATE IV SCH ×7 (12:34)
[2023-02-09] MEDS: [UNRECOGNIZED DRUG - OTHER] IV SCH ×7 (12:34)
[2023-02-09] MEDS: MAGNESIUM SULFATE IV SCH ×7 (12:34)
[2023-02-09] MEDS: MAG HYDROX/AL HYDROX/SIMETH 30 ML, LIDOCAINE VISCOUS 2% 30 ML, diphenhydrAMINE ELIXIR 7... PO SCH ×12 (12:34→20:39)
[2023-02-09] MEDS: SODIUM ACETATE IV SCH ×7 (12:34)
--- NOTE | 2023-02-09 12:37 | P.PN ---
Subjective This is a pleasant 67 years old male with multiple medical problems who was admitted initially on 02/01 with shortness of breath and borderline blood pressure 105/78 thought secondary to A. fib and RVR as his heart rate was around 133. Patient has been able to by in processing instructor and his dose of metoprolol increased from 50 mg up to 100 mg and continued on digoxin 250 mg as well as he is on liquids 5 mg. Patient with recent history of pancreatic cancer diagnosed last September and his been having chronic abdominal pain in the epigastrium about 7/10 similar since then. He has some mouth sores and bicytopenia secondary to recent chemotherapy, oncology team on the case. He is kept nothing by mouth and TPN is running partially because of his mouth sores. He still have bouts of diarrhea but states that he started getting better today and more formed. C. diff is negative. Patient says that his weakness is better than last week, he fell 2 days ago, Cedergren was negative at that time. He is fully awake and oriented denies chest pain or dyspnea. He still feels generally weak and he still have abdominal pain as above. No urinary complaint s. Vitas looks stable. Patient is afebrile. Hemoglobin 8.4 and platelet count improved to 83. CT of the abdomen and pelvis showing cholelithiasis with biliary stent in place and fluid distention of the colon was closed with diarrhea. Patient currently on D5 normal saline at 50 mL per hour and Eliquis 5 mg. We will check vitamin B12 and vitamin D. Also will check stool for elastase 02/09/2023 Patient pulled his PICC line accidentally today. Patient is not confused. Patient does swallow evaluation and I agree with starting him on liquid diet with advanced as tolerated. His mouth sores have resolved significantly and they are minimum in his examination today. His A. fib is in control on metoprolol higher dose 100 mg and Eliquis 5 mg BMP is a stable Check labs in the morning including platelet count and hemoglobin and BMP. Patient says that diarrhea has significantly improved. We still waiting for elastase to check for pancreatic function. Objective - Vital Signs Vital signs: Vital Signs Temp 97.9 F 02/09/23 08:00 Pulse 71 02/09/23 12:00 Resp 18 02/09/23 12:00 BP 114/64 02/09/23 12:00 Pulse Ox 95 02/09/23 12:00 FiO2 Intake & Output 02/08/23 02/09/23 02/09/23 18:59 06:59 18:59 Intake Total 874.5 Balance 874.5 Weight 74.843 kg Intake: Intake, IV Titration 634.5 Amount Potassium Phosphate 15 634.5 mmol Sodium Acetate 30 meq Magnesium Sulfate gm 0.5 gm Calcium Gluconate 1 gm In Amino Acids 5 %/ Dextrose 20 % 1,000 ml @ 71 mls/hr IV .BY DURATION [facility] Rx#:[id number] Oral 240 Other: # Voids 1 1 # Bowel Movements 1 1 - Exam GENERAL: The patient is alert and oriented x3, not in any acute distress. Well developed, well nourished. HEENT: Pupils are round and equally reacting to light. EOMI. No scleral icterus. No conjunctival pallor. Normocephalic, atraumatic. No pharyngeal erythema. No thyromegaly. CARDIOVASCULAR: S1 and S2 present. No murmurs, rubs, or gallops. PULMONARY: Chest is clear to auscultation, no wheezing or crackles. -ABDOMEN: Soft, epigastric tenderness (chronic) no rebound tenderness or g uarding, nondistended, normoactive bowel sounds. No palpable organomegaly. MUSCULOSKELETAL: No joint swelling or deformity. EXTREMITIES: No cyanosis, clubbing, or pedal edema. NEUROLOGICAL: Gross neurological examination did not reveal any focal deficits. SKIN: No rashes. no petechiae. - Labs CBC & Chem 7: 02/08/23 09:39 02/09/23 11:16 Labs: Abnormal Lab Results - Last 24 Hours (Table) 02/08/23 02/08/23 02/08/23 Range/Units 07:32 07:32 16:42 Chloride (98-107) mmol/L BUN (9-20) mg/dL POC Glucose (mg/dL) 166 H (70-110) mg/dL Calcium (8.4-10.2) mg/dL Vitamin B12 >3600.0 H (200.0-944.0) pg/mL Folate 34.10 H (4.40-31.00) ng/mL 02/09/23 Range/Units 11:16 Chloride 111 H (98-107) mmol/L BUN 7 L (9-20) mg/dL POC Glucose (mg/dL) (70-110) mg/dL Calcium 8.2 L (8.4-10.2) mg/dL Vitamin B12 (200.0-944.0) pg/mL Folate (4.40-31.00) ng/mL Assessment and Plan Assessment: A. 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 Continue same treatment. Continue with symptomatic treatment. Resume home medication. Monitor labs and vitals. DVT and GI prophylaxis. Further recommendations as per clinical course of the patient DVT prophylaxis: Eliquis GI Prophylaxis: Ppi PT/OT: Recommended subacute rehab Prognosis is guarded
[2023-02-09 14:06] LABS: Glucose,Whole Blood 104 mg/dL (70-110)
--- NOTE | 2023-02-09 14:30 | P.PN ---
Subjective Progress Note Date: 02/09/23 Principal diagnosis: hx pancreatic cancer, thromobocytopenia At today's visit patient is resting comfortably in bed. He reports that he is having continued improvement in symptoms. He reports that abdominal pain is improved but still present, left greater than right. Diarrhea has resolved. He also reports the mouth sores have improved. Denies nausea vomiting fever and ch ills. Spoke with RN who states PICC line was pulled out accidentally last night by patient. Due to continued improvement in symptoms patient will start on clear liquid diet today, With plans to slowly advance diet as patient tolerates. Will discontinue TPN, and maintain IV hydration. No other reported complaints at this time Objective - Vital Signs Vital signs: Vital Signs Temp 97.9 F 02/09/23 08:00 Pulse 71 02/09/23 12:00 Resp 18 02/09/23 12:00 BP 114/64 02/09/23 12:00 Pulse Ox 95 02/09/23 12:00 FiO2 Intake & Output 02/08/23 02/09/23 02/09/23 18:59 06:59 18:59 Intake Total 874.5 Balance 874.5 Weight 74.843 kg 74.843 kg Intake: Intake, IV Titration 634.5 Amount Potassium Phosphate 15 634.5 mmol Sodium Acetate 30 meq Magnesium Sulfate gm 0.5 gm Calcium Gluconate 1 gm In Amino Acids 5 %/ Dextrose 20 % 1,000 ml @ 71 mls/hr IV .BY DURATION [facility] Rx#:[id number] Oral 240 Other: # Voids 1 1 # Bowel Movements 1 1 - Constitutional General appearance: Present: no acute distress, thin - EENT Eyes: Present: anicteric sclerae, EOMI ENT: Present: hearing grossly normal - Respiratory Details: Breathing is even unlabored - Cardiovascular Details: Skin is warm and dry - Gastrointestinal General gastrointestinal: Present: soft, tenderness Localized gastrointestinal: tender: diffuse (l>r) - Integumentary Integumentary: Present: pale - Neurologic Neurologic: Present: CNII-XII intact - Musculoskeletal Musculoskeletal: Present: generalized weakness - Psychiatric Psychiatric: Present: A&O x's 3, appropriate affect, intact judgment & insight - Labs CBC & Chem 7: 02/08/23 09:39 02/09/23 11:16 Labs: Abnormal Lab Results - Last 24 Hours (Table) 02/08/23 02/08/23 02/08/23 Range/Units 07:32 07:32 16:42 Chloride (98-107) mmol/L BUN (9-20) mg/dL POC Glucose (mg/dL) 166 H (70-110) mg/dL Calcium (8.4-10.2) mg/dL Vitamin B12 >3600.0 H (200.0-944.0) pg/mL Folate 34.10 H (4.40-31.00) ng/mL 02/09/23 Range/Units 11:16 Chloride 111 H (98-107) mmol/L BUN 7 L (9-20) mg/dL POC Glucose (mg/dL) (70-110) mg/dL Calcium 8.2 L (8.4-10.2) mg/dL Vitamin B12 (200.0-944.0) pg/mL Folate (4.40-31.00) ng/mL Assessment and Plan (1) Atrial fibrillation with RVR Current Visit: Yes Status: Acute Priority: High Code(s): I48.91 - UNSPECIFIED ATRIAL FIBRILLATION SNOMED Code(s): 408528873407217 (2) Diarrhea Current Visit: Yes Status: Acute Priority: High Code(s): R19.7 - DIARRHEA, UNSPECIFIED SNOMED Code(s): 16089719 (3) Thrombocytopenia Current Visit: Yes Status: Acute Priority: High Code(s): D69.6 - THROMBOCYTOPENIA, UNSPECIFIED SNOMED Code(s): 170556398 Plan: A-fib -New onset -VQ low probability for PE -legs swollen and painful, doppler of BLE is neg for DVT -Cardiology following -on eliquis on admit anemia and thrombocytopenia -2/2 chemo -cont anticoagulation as long as plt >50k. Platelets 101,000 -Hemoglobin 8.7, denies episodes of bleeding -transfuse for Hgb<7, plt <50K so pt can remain on anticoagulation Diarrhea -Diarrhea resolved. Discontinued scheduled Lomotil and Imodium. Imodium prn -suspect an enteritis based on physical exam findings -stool studies, c-diff negative -Symptoms continue to improve. Patient has been started on a clear liquid diet. Will slowly advance diet as patient tolerates. TPN discontinued. Restart IV hydration. Continue Kools and salt and soda for oral irritation labs daily pancreatic adenocarcinoma -s/p 3 cycles of neoadjuvant chemo -dose adjustments will be necessary for pt to tolerate more treatment to get to surgery -Plan for rehab upon discharge, will plan for reevaluation upon d/c from rehab to assess readiness to resume chemo tx
[2023-02-09 18:40] LABS: Glucose,Whole Blood 103 mg/dL (70-110)
[2023-02-09] MEDS: DEXTROSE 5%-0.9% NACL 1,000 ML IV SCH (19:43)
[2023-02-09] MEDS: PRAVASTATIN SODIUM 20 MG TAB PO SCH (20:44)
[2023-02-09 20:49] LABS: Glucose,Whole Blood 92 mg/dL (70-110)
[2023-02-10] MEDS: HYDROmorphone 1 MG/ML 1 ML SYRINGE IVP PRN ×2 (04:10→10:00)
[2023-02-10] MEDS: SALT AND SODA MOUTHWASH 1,000 ML PO SCH ×5 (04:11→23:29)
[2023-02-10] MEDS: HYDROcodone/APAP 10-325MG 1 EACH TAB PO PRN ×2 (05:59→12:46)
[2023-02-10 06:37] LABS: Glucose,Whole Blood 90 mg/dL (70-110)
[2023-02-10] MEDS: INSULIN ASPART (NovoLOG) 100 UNIT/ML VIAL SQ SCH ×4 (06:38→20:31)
[2023-02-10] MEDS: MAG HYDROX/AL HYDROX/SIMETH 30 ML, LIDOCAINE VISCOUS 2% 30 ML, diphenhydrAMINE ELIXIR 7... PO SCH ×12 (08:55→20:41)
[2023-02-10 09:37] LABS: Anisocytosis Slight; Basophils % (A) 0 %; Eosinophils % (A) 0 %; HCT 29.2 % (39.0-53.0); HGB 9.7 gm/dL (13.0-17.5); Lymphocytes # (A) 1.6 k/uL (1.0-4.8); Lymphocytes % (A) 17 %; MCHC 33.4 g/dL (31.0-37.0); MCV 104.8 fL (80.0-100.0); Macrocytosis Moderate; Mean Platelet Volume 8.2; Monocytes # (A) 0.7 k/uL (0-1.0); Monocytes % (A) 7 %; Neutrophils # (A) 7.1 k/uL (1.3-7.7); Neutrophils % (A) 74 %; Poikilocytosis Moderate; RBC 2.78 m/uL (4.30-5.90); RDW 17.8 % (11.5-15.5); WBC 9.6 k/uL (3.8-10.6)
[2023-02-10 09:48] LABS: Platelet Count 153 k/uL (150-450)
[2023-02-10] MEDS: CHOLECALCIFEROL 25 MCG (1000 IU) TABLET PO SCH (10:00)
[2023-02-10] MEDS: METOPROLOL TARTRATE 50 MG TAB PO SCH ×2 (10:00→20:39)
[2023-02-10] MEDS: APIXABAN 5 MG TAB PO SCH ×2 (10:00→20:39)
[2023-02-10] MEDS: PANTOPRAZOLE 40 MG/10 ML VIAL IV SCH (10:00)
[2023-02-10] MEDS: CYANOCOBALAMIN 500 MCG TAB PO SCH (10:00)
[2023-02-10] MEDS: DIGOXIN 250 MCG TAB PO SCH (10:01)
[2023-02-10] MEDS: DEXTROSE 5%-0.9% NACL 1,000 ML IV SCH (10:09)
[2023-02-10 10:58] LABS: African American GFR (CKD) >90 (>60 ml/min/1.73 sqM); Anion Gap 8 mmol/L; Blood Urea Nitrogen 8 mg/dL (9-20); Calcium 8.3 mg/dL (8.4-10.2); Carbon Dioxide 24 mmol/L (22-30); Chloride 110 mmol/L (98-107); Glucose 92 mg/dL (74-99); Magnesium 1.8 mg/dL (1.6-2.3); Non-African American GFR(CKD) 87 (>60 ml/min/1.73 sqM); Phosphorus 2.8 mg/dL (2.5-4.5); Potassium 4.1 mmol/L (3.5-5.1); Sodium 142 mmol/L (137-145)
[2023-02-10 11:41] LABS: Glucose,Whole Blood 88 mg/dL (70-110)
--- NOTE | 2023-02-10 12:16 | P.PN ---
Subjective This is a pleasant 67 years old male with multiple medical problems who was admitted initially on 02/01 with shortness of breath and borderline blood pressure 105/78 thought secondary to A. fib and RVR as his heart rate was around 133. 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 Patient with recent history of pancreatic cancer diagnosed last September and his been having chronic abdominal pain in the epigastrium about 7/10 similar since then. He has some mouth sores and bicytopenia secondary to recent chemotherapy, oncology team on the case. He is kept nothing by mouth and TPN is running partially because of his mouth sores. He still have bouts of diarrhea but states that he started getting better today and more formed. C. diff is negative. Patient says that his weakness is better than last week, he fell 2 days ago, Cedergren was negative at that time. He is fully awake and oriented denies chest pain or dyspnea. He still feels generally weak and he still have abdominal pain as above. No urinary complaint s. Vitas looks stable. Patient is afebrile. Hemoglobin 8.4 and platelet count improved to 83. CT of the abdomen and pelvis showing cholelithiasis with biliary stent in place and fluid distention of the colon was closed with diarrhea. Patient currently on D5 normal saline at 50 mL per hour and Eliquis 5 mg. We will check vitamin B12 and vitamin D. Also will check stool for elastase 02/09/2023 Patient pulled his PICC line accidentally today. Patient is not confused. Patient does swallow evaluation and I agree with starting him on liquid diet with advanced as tolerated. His mouth sores have resolved significantly and they are minimum in his examination today. His A. fib is in control on metoprolol higher dose 100 mg and Eliquis 5 mg BMP is a stable Check labs in the morning including platelet count and hemoglobin and BMP. Patient says that diarrhea has significantly improved. We still waiting for elastase to check for pancreatic function. 02/10/2023 Patient diarrhea has stopped, his heart rate and A. fib has been controlled which were the 2 main acute reasons he came into the hospital with. Patient still with chronic problems since last September including loss of energy, epigastric and upper abdominal pain and severe anorexia related to his cancer. Patient is open to go to rehab however his main problem is inability to eat very at Oncology team on the case. We checked vitamin B12 more than 3600 which is very high level above the limits therefore we discontinued his vitamin B12 pills Vitamin B6 is low last than 5 at 4. Therefore was set replacement therapy. Objective - Vital Signs Vital signs: Vital Signs Temp 98.0 F 02/10/23 08:00 Pulse 65 02/10/23 08:00 Resp 18 02/10/23 08:00 BP 113/56 02/10/23 08:00 Pulse Ox 98 02/10/23 08:00 FiO2 Intake & Output 02/09/23 02/10/23 02/10/23 18:59 06:59 18:59 Intake Total 0 Balance 0 Weight 74.843 kg Intake: Oral 0 Other: Voiding Method Toilet # Voids 2 - Exam GENERAL: The patient is alert and oriented x3, not in any acute distress. Well developed, well nourished. HEENT: Pupils are round and equally reacting to light. EOMI. No scleral icterus. No conjunctival pallor. Normocephalic, atraumatic. No pharyngeal erythema. No thyromegaly. CARDIOVASCULAR: S1 and S2 present. No murmurs, rubs, or gallops. PULMONARY: Chest is clear to auscultation, no wheezing or crackles. -ABDOMEN: Soft, epigastric tenderness (chronic) no rebound tenderness or guarding, nondistended, normoactive bowel sounds. No palpable organomegaly. MUSCULOSKELETAL: No joint swelling or deformity. EXTREMITIES: No cyanosis, clubbing, or pedal edema. NEUROLOGICAL: Gross neurological examination did not reveal any focal deficits. SKIN: No rashes. no petechiae. - Labs CBC & Chem 7: 02/10/23 09:17 02/10/23 09:17 Labs: Abnormal Lab Results - Last 24 Hours (Table) 02/08/23 02/10/23 02/10/23 Range/Units 09:39 09:17 09:17 RBC 2.78 L (4.30-5.90) m/uL Hgb 9.7 L (13.0-17.5) gm/dL Hct 29.2 L (39.0-53.0) % MCV 104.8 H (80.0-100.0) fL RDW 17.8 H (11.5-15.5) % Chloride 110 H (98-107) mmol/L BUN 8 L (9-20) mg/dL Calcium 8.3 L (8.4-10.2) mg/dL Vitamin B6 4 L (5-50) ug/L Assessment and Plan Assessment: A. fib and RVR, present on admission, currently rate is better controlled Pancreatic cancer status post chemotherapy Severe anorexia, since last September, most likely related to his cancer Chronic abdominal pain secondary to above. 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 Continue same treatment. Continue with symptomatic treatment. Resume home medication. Monitor labs and vitals. DVT and GI prophylaxis. Further recommendations as per clinical course of the patient DVT prophylaxis: Eliquis GI Prophylaxis: Ppi PT/OT: Recommended subacute rehab Prognosis is guarded
[2023-02-10] MEDS: PYRIDOXINE 50 MG TAB PO SCH ×2 (12:46→20:39)
--- NOTE | 2023-02-10 13:40 | CDI ---
Documentation Clarification Form Date: 02/09/2023 8:34:00 AM From: Destiny Alcala Phone: [phone] Admit Date: 01/31/2023 4:56:00 PM Patient Name: Diaz Riley Visit Number: [id number] Discharge Date: ATTENTION: The Clinical Documentation Specialists (CDI) and [facility] Coding Staff appreciate your assistance in clarifying documentation. Please respond to the clarification below the line at the bottom and electronically sign. The CDI & [facility] Coding staff will review the response and follow-up if needed. Please note: Queries are made part of the Legal Health Record. If you have any questions, please contact the author of this message via ITS. Dr. Charlotte Harley MD Your patient has decreased wbc, rbc and platelets on 02/02, 02/03 and 02/04 documented in the labs. Based on this information and the findings below, is there an additional diagnosis that is clinically appropriate for this patient? History/Risk factors: 67 year old male with shortness of breath and ongoing diarrhea for four days. Medical History: Pancreatic cancer last chemotherapy was one week prior, DM, HLD, HTN and Atrial fib. 02/01, H&P Clinical indicators: Labs: 02/02 Wbc 2.2 Rbc 2.75 Platelets 59 02/03 Wbc 2.4 Rbc 2.40 Platelets 42 02/04 Wbc 3.6 Rbc 2.77 Platelets 79 02/03, Oncology: Anemia and thrombocytopenia secondary to chemotherapy. Treatment: 02/03 1 Unit Platelets, Daily CBC Is there an additional diagnosis that is clinically appropriate for this patient? [ X ] Pancytopenia due to chemotherapy [ ] Pancytopenia due to other, please specify [ ] Other condition, please specify ____ [ ] Unable to determine (Template Last Reviewed: November 2022) MTDD
--- NOTE | 2023-02-10 13:49 | P.PN ---
Subjective Progress Note Date: 02/10/23 Principal diagnosis: hx pancreatic cancer, thromobocytopenia At today's visit patient is resting comfortably in bed. He reports that he is having continued improvement in symptoms. He reports that abdominal pain is improved but still present, left greater than right. Diarrhea has resolved. He also reports the mouth sores have improved. Denies nausea vomiting fever and ch ills. Patient was started on clear liquid diet last night. Upon speaking to the patient today, he states he has not ate dinner or breakfast this morning, stating "its not appealing". Encouraged patient to increase oral intake as TPN has been discontinued and that we would like to see him tolerate oral intake prior to discharge. patient verbalized understanding. No other reported complaints at this time Objective - Vital Signs Vital signs: Vital Signs Temp 98.0 F 02/10/23 08:00 Pulse 69 02/10/23 12:00 Resp 18 02/10/23 12:00 BP 84/59 02/10/23 12:00 Pulse Ox 95 02/10/23 12:00 FiO2 Intake & Output 02/09/23 02/10/23 02/10/23 18:59 06:59 18:59 Intake Total 0 Balance 0 Weight 74.843 kg Intake: Oral 0 Other: Voiding Method Toilet # Voids 2 - Constitutional General appearance: Present: no acute distress, thin - EENT Eyes: Present: anicteric sclerae, EOMI ENT: Present: hearing grossly normal - Respiratory Details: breathing is even and unlabored - Cardiovascular Details: skin is warm and dry - Gastrointestinal General gastrointestinal: Present: soft, tenderness Localized gastrointestinal: tender: epigastric periumbilical - Integumentary Integumentary: Present: pale - Musculoskeletal Musculoskeletal: Present: generalized weakness - Psychiatric Psychiatric: Present: A&O x's 3, appropriate affect, intact judgment & insight - Labs CBC & Chem 7: 02/10/23 09:17 02/10/23 09:17 Labs: Abnormal Lab Results - Last 24 Hours (Table) 02/08/23 02/10/23 02/10/23 Range/Units 09:39 09:17 09:17 RBC 2.78 L (4.30-5.90) m/uL Hgb 9.7 L (13.0-17.5) gm/dL Hct 29.2 L (39.0-53.0) % MCV 104.8 H (80.0-100.0) fL RDW 17.8 H (11.5-15.5) % Chloride 110 H (98-107) mmol/L BUN 8 L (9-20) mg/dL Calcium 8.3 L (8.4-10.2) mg/dL Vitamin B6 4 L (5-50) ug/L Assessment and Plan (1) Atrial fibrillation with RVR Current Visit: Yes Status: Acute Priority: High Code(s): I48.91 - UNSPECIFIED ATRIAL FIBRILLATION SNOMED Code(s): 346912526802713 (2) Diarrhea Current Visit: Yes Status: Acute Priority: High Code(s): R19.7 - DIARRHEA, UNSPECIFIED SNOMED Code(s): 49709964 (3) Thrombocytopenia Current Visit: Yes Status: Acute Priority: High Code(s): D69.6 - THROMBOCYTOPENIA, UNSPECIFIED SNOMED Code(s): 961454857 Plan: A-fib -New onset -VQ low probability for PE -legs swollen and painful, doppler of BLE is neg for DVT -Cardiology following -on eliquis on admit anemia and thrombocytopenia -2/2 chemo -cont anticoagulation as long as plt >50k. Platelets stable -Hemoglobin 9.7, denies episodes of bleeding -transfuse for Hgb<7, plt <50K so pt can remain on anticoagulation Diarrhea -Diarrhea resolved. Discontinued scheduled Lomotil and Imodium. Imodium prn -suspect an enteritis based on physical exam findings -stool studies, c-diff negative -Symptoms continue to improve. Patient has been started on a clear liquid diet. Will slowly advance diet as patient tolerates. Upon speaking to the patient today, he states he has not ate dinner or breakfast this morning, stating "its not appealing". Encouraged patient to increase oral intake. Will continue to monitor patient's nutritional status. If he continues not to be able to tolerate diet, will restart TPN Continue Kools and salt and soda for oral irritation labs daily pancreatic adenocarcinoma -s/p 3 cycles of neoadjuvant chemo -dose adjustments will be necessary for pt to tolerate more treatment to get to surgery -Plan for rehab upon discharge, will plan for reevaluation upon d/c from rehab to assess readiness to resume chemo tx
[2023-02-10 16:34] LABS: Glucose,Whole Blood 136 mg/dL (70-110)
[2023-02-10 20:24] LABS: Glucose,Whole Blood 102 mg/dL (70-110)
[2023-02-10] MEDS: PRAVASTATIN SODIUM 20 MG TAB PO SCH (20:39)
[2023-02-11] MEDS: DEXTROSE 5%-0.9% NACL 1,000 ML IV SCH (05:11)
[2023-02-11] MEDS: SALT AND SODA MOUTHWASH 1,000 ML PO SCH ×5 (05:16→23:20)
[2023-02-11 06:31] LABS: Glucose,Whole Blood 80 mg/dL (70-110)
[2023-02-11] MEDS: INSULIN ASPART (NovoLOG) 100 UNIT/ML VIAL SQ SCH ×4 (06:38→20:41)
[2023-02-11] MEDS: PANTOPRAZOLE 40 MG/10 ML VIAL IV SCH (10:12)
[2023-02-11] MEDS: MAG HYDROX/AL HYDROX/SIMETH 30 ML, LIDOCAINE VISCOUS 2% 30 ML, diphenhydrAMINE ELIXIR 7... PO SCH ×12 (10:13→21:47)
[2023-02-11] MEDS: METOPROLOL TARTRATE 50 MG TAB PO SCH ×2 (10:15→20:11)
[2023-02-11] MEDS: CHOLECALCIFEROL 25 MCG (1000 IU) TABLET PO SCH (10:15)
[2023-02-11] MEDS: APIXABAN 5 MG TAB PO SCH ×2 (10:15→20:10)
[2023-02-11] MEDS: PYRIDOXINE 50 MG TAB PO SCH ×2 (10:15→20:10)
[2023-02-11] MEDS: DIGOXIN 250 MCG TAB PO SCH (10:15)
[2023-02-11] MEDS: HYDROcodone/APAP 10-325MG 1 EACH TAB PO PRN ×2 (10:16→19:04)
[2023-02-11 11:38] LABS: Glucose,Whole Blood 89 mg/dL (70-110)
--- NOTE | 2023-02-11 16:20 | P.PN ---
Subjective This is a pleasant 67 years old male with multiple medical problems who was admitted initially on 02/01 with shortness of breath and borderline blood pressure 105/78 thought secondary to A. fib and RVR as his heart rate was around 133. 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 Patient with recent history of pancreatic cancer diagnosed last September and his been having chronic abdominal pain in the epigastrium about 7/10 similar since then. He has some mouth sores and bicytopenia secondary to recent chemotherapy, oncology team on the case. He is kept nothing by mouth and TPN is running partially because of his mouth sores. He still have bouts of diarrhea but states that he started getting better today and more formed. C. diff is negative. Patient says that his weakness is better than last week, he fell 2 days ago, Cedergren was negative at that time. He is fully awake and oriented denies chest pain or dyspnea. He still feels generally weak and he still have abdominal pain as above. No urinary complaint s. Vitas looks stable. Patient is afebrile. Hemoglobin 8.4 and platelet count improved to 83. CT of the abdomen and pelvis showing cholelithiasis with biliary stent in place and fluid distention of the colon was closed with diarrhea. Patient currently on D5 normal saline at 50 mL per hour and Eliquis 5 mg. We will check vitamin B12 and vitamin D. Also will check stool for elastase 02/09/2023 Patient pulled his PICC line accidentally today. Patient is not confused. Patient does swallow evaluation and I agree with starting him on liquid diet with advanced as tolerated. His mouth sores have resolved significantly and they are minimum in his examination today. His A. fib is in control on metoprolol higher dose 100 mg and Eliquis 5 mg BMP is a stable Check labs in the morning including platelet count and hemoglobin and BMP. Patient says that diarrhea has significantly improved. We still waiting for elastase to check for pancreatic function. 02/10/2023 Patient diarrhea has stopped, his heart rate and A. fib has been controlled which were the 2 main acute reasons he came into the hospital with. Patient still with chronic problems since last September including loss of energy, epigastric and upper abdominal pain and severe anorexia related to his cancer. Patient is open to go to rehab however his main problem is inability to eat very at Oncology team on the case. We checked vitamin B12 more than 3600 which is very high level above the limits therefore we discontinued his vitamin B12 pills Vitamin B6 is low last than 5 at 4. Therefore was set replacement therapy. 02/11/2023 Patient clinically is the same, no significant diarrhea, abdominal pain is chronic. Still has low appetite Today I have a discussion with the patient about his eating and anorexia and he is willing to try soft diet today. Therefore we don't advance his liquid diet until soft diet and keep monitoring The meantime we will hold Imodium so we can monitor his diarrhea. Discussed with staff to check for still elastase. Oncology team on the case Objective - Vital Signs Vital signs: Vital Signs Temp 98.2 F 02/11/23 12:00 Pulse 64 02/11/23 12:00 Resp 16 02/11/23 12:00 BP 120/61 02/11/23 12:00 Pulse Ox 97 02/11/23 12:00 FiO2 Intake & Output 02/10/23 02/11/23 02/11/23 18:59 06:59 18:59 Intake Total 118 118 280 Output Total 0 Balance 118 118 280 Weight 74.843 kg Intake: Oral 118 118 280 Output: Gastric Drainage 0 Urine 0 Stool 0 Urine/Stool Mix 0 Emesis 0 Oral Regurgitation 0 Other 0 Other: Voiding Method Toilet Toilet # Voids 2 1 0 # Bowel Movements 0 - Exam GENERAL: The patient is alert and oriented x3, not in any acute distress. Well developed, well nourished. HEENT: Pupils are round and equally reacting to light. EOMI. No scleral icterus. No conjunctival pallor. Normocephalic, atraumatic. No pharyngeal erythema. No thyromegaly. CARDIOVASCULAR: S1 and S2 present. No murmurs, rubs, or gallops. PULMONARY: Chest is clear to auscultation, no wheezing or crackles. -ABDOMEN: Soft, epigastric tenderness (chronic) no rebound tenderness or guardi ng, nondistended, normoactive bowel sounds. No palpable organomegaly. MUSCULOSKELETAL: No joint swelling or deformity. EXTREMITIES: No cyanosis, clubbing, or pedal edema. NEUROLOGICAL: Gross neurological examination did not reveal any focal deficits. SKIN: No rashes. no petechiae. - Labs CBC & Chem 7: 02/10/23 09:17 02/10/23 09:17 Labs: Abnormal Lab Results - Last 24 Hours (Table) 02/10/23 Range/Units 16:32 POC Glucose (mg/dL) 136 H (70-110) mg/dL Assessment and Plan Assessment: A. fib and RVR, present on admission, currently rate is better controlled Pancreatic cancer status post chemotherapy Severe anorexia, since last September, most likely related to his cancer Chronic abdominal pain secondary to above. 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 Continue same treatment. Continue with symptomatic treatment. Resume home medication. Monitor labs and vitals. DVT and GI prophylaxis. Further recommendations as per clinical course of the patient DVT prophylaxis: Eliquis GI Prophylaxis: Ppi PT/OT: Recommended subacute rehab Prognosis is guarded
[2023-02-11 16:41] LABS: Glucose,Whole Blood 142 mg/dL (70-110)
[2023-02-11] MEDS: PRAVASTATIN SODIUM 20 MG TAB PO SCH (20:10)
[2023-02-11 20:22] LABS: Glucose,Whole Blood 147 mg/dL (70-110)
[2023-02-12] MEDS: DEXTROSE 5%-0.9% NACL 1,000 ML IV SCH (00:29)
[2023-02-12 06:20] LABS: Glucose,Whole Blood 101 mg/dL (70-110)
[2023-02-12] MEDS: SALT AND SODA MOUTHWASH 1,000 ML PO SCH ×2 (06:22→09:59)
[2023-02-12] MEDS: INSULIN ASPART (NovoLOG) 100 UNIT/ML VIAL SQ SCH ×4 (06:22→22:47)
[2023-02-12 08:47] LABS: African American GFR (CKD) >90 (>60 ml/min/1.73 sqM); Anion Gap 7 mmol/L; Blood Urea Nitrogen 9 mg/dL (9-20); Calcium 8.2 mg/dL (8.4-10.2); Carbon Dioxide 19 mmol/L (22-30); Chloride 114 mmol/L (98-107); Glucose 108 mg/dL (74-99); Non-African American GFR(CKD) 88 (>60 ml/min/1.73 sqM); Potassium 4.3 mmol/L (3.5-5.1); Sodium 140 mmol/L (137-145)
[2023-02-12] MEDS: PANTOPRAZOLE 40 MG/10 ML VIAL IV SCH (09:59)
[2023-02-12] MEDS: DIGOXIN 250 MCG TAB PO SCH (10:00)
[2023-02-12] MEDS: APIXABAN 5 MG TAB PO SCH ×2 (10:00→22:33)
[2023-02-12] MEDS: PYRIDOXINE 50 MG TAB PO SCH ×2 (10:00→22:33)
[2023-02-12] MEDS: CHOLECALCIFEROL 25 MCG (1000 IU) TABLET PO SCH (10:00)
[2023-02-12] MEDS: METOPROLOL TARTRATE 50 MG TAB PO SCH (10:00)
[2023-02-12] MEDS: HYDROcodone/APAP 10-325MG 1 EACH TAB PO PRN ×2 (10:00→22:50)
[2023-02-12] MEDS: MAG HYDROX/AL HYDROX/SIMETH 30 ML, LIDOCAINE VISCOUS 2% 30 ML, diphenhydrAMINE ELIXIR 7... PO SCH ×4 (10:18)
[2023-02-12 11:44] LABS: Glucose,Whole Blood 115 mg/dL (70-110)
[2023-02-12] MEDS ORDERED: propofoL 100 ML IV ONE (12:16)
--- NOTE | 2023-02-12 12:31 | P.PN ---
Progress Note - Text Progress Note Date: 02/12/23 (1025) Called to see patient emergently for cardiac arrest. Upon arrival multiple team members and house physician in room. CPR in progress. Moved to the head of the bed and make sure all supplies were in order. Mac 4.0 blade used in one attempt to place 8.0 endotracheal tube. Positive color change and secured at 22 cm at the lip. Left and care of the respiratory team.
[2023-02-12 12:36] LABS: Glucose,Whole Blood 186 mg/dL (70-110)
[2023-02-12 12:56] LABS: ABG Base Excess -15.5 mmol/L; ABG HCO3 12 mmol/L (21-25); ABG PCO2 30 mmHg (35-45); ABG PH 7.22 (7.35-7.45); ABG PO2 >400 mmHg (83-108); ABG TCO2 13 mmol/L (19-24); Allen Test Performed? Yes
[2023-02-12] MEDS ORDERED: AMIODARONE 360 MG in DEXTROSE 5% IN WATER 200 ML IV ONE ×2 (13:00)
[2023-02-12] MEDS ORDERED: ATROPINE SULFATE 0.1 MG/ML 10ML SYRINGE ONE (13:04)
--- NOTE | 2023-02-12 13:23 | XR ---
EXAMINATION TYPE: XR chest 1V portable DATE OF EXAM: 02/12/2023 COMPARISON: 01/31/2023 HISTORY: Tube placement FINDINGS: Endotracheal tube is noted with its distal tip approximately 5.3 cm from the ana. NG tube is seen coursing into the stomach. Right-sided MediPort catheter is in place. There is no evidence for pneumo thorax. There is right perihilar and right basilar infiltrate. The left lung appears to be clear at this time . Stable appearance of the cardio-mediastinal structures at this time. Suspect small pleural effusion on the right. IMPRESSION: 1. Indwelling tubes and catheters appropriately placed. 2. Increased density right perihilar and right basilar region may reflect developing infiltrate.
[2023-02-12] MEDS: SODIUM CHLORIDE 0.9% 1,000 ML IV SCH ×2 (13:30→22:34)
--- NOTE | 2023-02-12 13:42 | P.EN ---
Code Adrian Note DRAGAN GARCIA was called at approximately 1131 with ACLS initiated immediately via Chest compressions at 1131. My response time was 1133. Initial rhythm was ventricular fibrillation with no pulse. Total code time was approximately 36 minutes. Throughout the code, patient had received 6 shocks, initial joules were 150, then escalated to 200 J. Patient received a 300 mg amiodarone bolus, then proceeded 150 mg amiodarone bolus. Patient received multiple pushes of epinephrine. Patient also received 2 g of magnesium sulfate, 1 g of calcium chloride. Patient had return of spontaneous circulation for the first time at 1152, was noted to be in junctional bradycardia and received one push of atropine 1156, loss pulse again and went into V. fib 1157 with CPR resumed. Patient was shocked again for the 6 time at 1158, received 1 g calcium. He again had return of spontaneous circulation 1159 with a pulse, rhythm was junctional rhythm with a heart rate of 57. Patient's blood pressure was cycled and noted to be 172/118. Case was subsequently discussed with windshield technician as well as embossing toolsetter fire control officer, given patient's metastatic cancer, recent 100 pound weight loss, patient did not appear to be a good candidate for reperfusion in the Respiratory Support Technician. After discussion with windshield technician, patient was transferred to the intensive care unit for further monitoring. Patient's family was notified by nursing. Patient's attending was also present throughout the code, and signout was given to him upon transfer to the intensive care unit.
--- NOTE | 2023-02-12 13:58 | P.CNPUL ---
History of Present Illness Consult date: 02/12/23 Chief complaint: Cardiac arrest History of present illness: 68-year-old male patient with an extensive cardiac disease, coronary artery disease, chronic atrial fibrillation and severe ischemic cardiomyopathy in addition to a recent diagnosis of a pancreatic cancer. The patient was has less for A. fib RVR. Earlier this morning, the patient went into cardiac arrest. DRAGAN GARCIA was called at 1131. The patient was immediately resuscitated based on the ACLS protocol. Initial rhythm was ventricular fibrillation with no pulse. Total code time was approximately 36 minutes. Throughout the code, patient had received 6 shocks, initial joules were 150, then escalated to 200 J. Patient received a 300 mg amiodarone bolus, then proceeded 150 mg amiodarone bolus. Patient received multiple pushes of epinephrine. Patient also received 2 g of m agnesium sulfate, 1 g of calcium chloride. Patient had return of spontaneous circulation for the first time at 1152, was noted to be in junctional bradycardia and received one push of atropine 1156, loss pulse again and went into V. fib 1157 with CPR resumed. Patient was shocked again for the 6 time at 1158, received 1 g calcium. He again had return of spontaneous circulation 1159 with a pulse, rhythm was junctional rhythm with a heart rate of 57. Patient's blood pressure was cycled and noted to be 172/118. Case was discussed logistics director contribution solicitor, given patient's metastatic cancer, recent 100 pound weight loss, patient did not appear to be a good candidate for reperfusion in the [employer]. After discussion with piercer operator, patient was transferred to the intensive care unit for further monitoring. Patient's family was notified by nursing. Patient's attending was also present throughout the code, and signout was given to him upon transfer to the intensive care unit. At this point in time, the patient is intubated on a mechanical ventilator. He is on a propofol running at 40 microvascular kilogram per minutes. Is on assist-control mode of mechanical ventilation at the rate of 16, tidal volume of 400, FiO2 wasn't 100% with PEEP of 5. The initial blood gas showed a pH of 7.22 with a pCO2 of 30 and pO2 more than 400. FiO2 is being weaned. Chest x-ray showed ET tube being in a good location. The patient has a port over the right anterior chest. There is increased opacity around the right perihilar area. The patient currently is hypotensive. The patient is receiving a bolus of normal saline 1 L. Blood work is still pending for now. The blood work from yesterday was noted and the patient has a WBC count 9.6 with a hemoglobin of 9.7. Electrolytes are all within normal limits. Normal renal function. His most recent cardiac rhythm is sinus bradycardia with first-degree AV block. The patient was started on amiodarone per cardiology recommendation currently running at 1 mg/m. He is on anticoagulation with Eliquis 5 mg by mouth twice a day. He is also supposed to be on metoprolol which is currently on hold. The patient had a triple-lumen catheter and arterial line catheter inserted in the ICU. He looks very marked emaciated and cachectic Review of Systems ROS unobtainable: due to endotracheal tube Past Medical History Past Medical History: Atrial Fibrillation, Chest Pain / Angina, Diabetes Mellitus, Hyperlipidemia, Hypertension, Musculoskeletal Disorder, Osteoarthritis (OA) Additional Past Medical History / Comment(s): BACK PAIN R/T OLD INJURY. EDEMA FEET/ANKLES. kidney stones, Recent diagnosis of Pancreatic tumor. Patient has n ot had follow-up with Oncologist yet and was readmitted for increased pain. History of Any Multi-Drug Resistant Organisms: None Reported Past Surgical History: Back Surgery, Heart Catheterization, Heart Catheterization With Stent, Orthopedic Surgery Additional Past Surgical History / Comment(s): R Knee scope; Colonoscopy; D eviated Septum Repair. BACK SURG.X2 PTCA W/ STENTS X2. CARDIOVERSION 03/28/18. ERCP last week with Dr. Morfin out of [facility] with stent placement. Past Anesthesia/Blood Transfusion Reactions: No Reported Reaction Date of Last Stent Placement:: 1997 Past Psychological History: No Psychological Hx Reported Smoking Status: Former smoker Past Alcohol Use History: None Reported Past Drug Use History: None Reported - Past Family History Mother Family Medical History: Dementia, Memory Impairment Additional Family Medical History / Comment(s): Mother in her 80s r/t advanced dementia. Father Family Medical History: Myocardial Infarction (CA) Additional Family Medical History / Comment(s): Father from coronary artery disease. Sister(s) Additional Family Medical History / Comment(s): Patient has 3 sisters one past from CVA. One has coronary artery disease with stent in 1 has no major medical problems. Patient is not having any children. Patient does not have any brothers. Medications and Allergies Home Medications Medication Instructions Recorded Confirmed Type Apixaban [Eliquis] 5 mg PO BID 03/20/18 01/31/23 History Cyanocobalamin (Vitamin B-12) 1,000 mcg PO DAILY 03/20/18 01/31/23 History [Vitamin B-12] Cyclobenzaprine [Flexeril] 10 mg PO HS PRN 03/20/18 01/31/23 History Isosorbide Mononitrate ER [Imdur] 30 mg PO DAILY 03/20/18 01/31/23 History Nitroglycerin Sl Tabs [Nitrostat] 0.4 mg SUBLINGUAL Q5M PRN 03/20/18 01/31/23 History Pravastatin Sodium [Pravachol] 20 mg PO HS 12/13/19 01/31/23 History allopurinoL [Zyloprim] 100 mg PO DAILY 12/13/19 01/31/23 History Cholecalciferol [Vitamin D3 (25 50 mcg PO DAILY 10/13/22 01/31/23 History Mcg = 1000 Iu)] Metoprolol Tartrate [Lopressor] 50 mg PO HS 10/13/22 01/31/23 History Metoprolol Tartrate [Lopressor] 100 mg PO DAILY 10/13/22 01/31/23 History Furosemide [Lasix] 40 mg PO DAILY 10/20/22 01/31/23 History Insulin Degludec [Tresiba 10 units SQ DAILY #0 10/22/22 01/31/23 Rx Flextouch U-100 Pen] HYDROcodone/APAP 10-325MG [[place] 1 tab PO Q6HR PRN 01/31/23 01/31/23 History 10-325] Allergies Allergy/AdvReac Type Severity Reaction Status Date / Time morphine Allergy Swelling Verified 01/31/23 15:27 Physical Exam Vitals: Vital Signs Temp Pulse Pulse Resp BP BP Pulse Ox 02/12/23 13:15 56 L 16 81/54 02/12/23 13:00 61 13 84/54 100 02/12/23 12:58 02/12/23 12:45 68 13 83/55 02/12/23 12:32 98.3 F 85 14 82/56 100 02/12/23 12:20 02/12/23 12:15 02/12/23 08:58 95 02/12/23 07:35 97.7 F 83 16 106/52 100 02/12/23 03:19 98.1 F 52 L 16 107/54 95 02/12/23 01:33 58 L 16 02/11/23 23:11 97.9 F 56 L 16 115/56 96 02/11/23 20:09 97.9 F 58 L 16 115/59 97 02/11/23 20:00 62 16 02/11/23 16:00 62 16 104/52 97 FiO2 02/12/23 13:15 02/12/23 13:00 100 02/12/23 12:58 50 02/12/23 12:45 02/12/23 12:32 100 02/12/23 12:20 100 02/12/23 12:15 100 02/12/23 08:58 02/12/23 07:35 02/12/23 03:19 02/12/23 01:33 02/11/23 23:11 02/11/23 20:09 02/11/23 20:00 02/11/23 16:00 Intake and Output 02/11/23 02/12/23 02/12/23 22:59 06:59 14:59 Intake Total 240 Output Total 0 0 Balance 240 0 Intake: Oral 240 Output: Gastric Drainage 0 Urine 0 Stool 0 0 Urine/Stool Mix 0 Oral Regurgitation 0 Other 0 Other: Voiding Method Toilet Toilet # Voids 0 1 1 # Bowel Movements 0 Cachectic, emaciated with a body mass index of 21.8 The patient is currently sedated on propofol, calm and comfortable, intubated on a mechanical ventilator Head exam was generally normal. There was no scleral icterus or corneal arcus. Mucous membranes were moist. Neck was supple and without jugular venous distension, thyromegaly, or carotid bruits. Carotids were easily palpable bilaterally. There was no adenopathy. Left IJ triple lumen catheter was inserted. Lungs were clear to auscultation and percussion, and with normal diaphragmatic excursion. No wheezes or rales were noted. Cardiac exam revealed the PMI to be normally situated and sized. The rhythm was irregular and bradycardic and no extrasystoles were noted during several minutes of auscultation. The first and second heart sounds were normal and physiologic splitting of the second heart sound was noted. There were no murmurs, rubs, clicks, or gallops. Abdominal exam revealed normal bowel sounds. The abdomen was soft, non-tender, and without masses, organomegaly, or appreciable enlargement of the abdominal aorta. Examination of the extremities revealed easily palpable radial, femoral and pedal pulses. There was no cyanosis, clubbing or edema. Examination of the skin revealed no evidence of significant rashes, suspicious appearing nevi or other concerning lesions. Neurologic the patient is sedated Results - Laboratory Findings CBC and BMP: 02/10/23 09:17 02/12/23 07:56 ABG ABG pH 7.22 (7.35-7.45) L 02/12/23 12:53 ABG pCO2 30 mmHg (35-45) L 02/12/23 12:53 ABG pO2 >400 mmHg (83-108) H 02/12/23 12:53 ABG O2 Saturation 100.0 % (94-97) H 02/12/23 12:53 PT/INR, D-dimer PT 15.7 sec (9.0-12.0) H 01/31/23 14:56 INR 1.6 (<1.2) H 01/31/23 14:56 D-Dimer 0.25 mg/L FEU (<0.60) 02/01/23 11:00 Abnormal lab findings: Abnormal Labs 01/31/23 01/31/23 01/31/23 14:56 14:56 14:56 WBC RBC 2.68 L Hgb 9.4 L Hct 27.9 L MCV 103.9 H MCH RDW 16.0 H Plt Count 61 L Lymphocytes # 0.6 L Lymphocytes # (Manual) PT 15.7 H INR 1.6 H ABG pH ABG pCO2 ABG pO2 ABG HCO3 ABG Total CO2 ABG O2 Saturation Sodium 136 L Potassium Chloride Carbon Dioxide 19 L BUN 36 H Creatinine 1.56 H Glucose 165 H POC Glucose (mg/dL) Calcium 8.2 L Phosphorus Magnesium AST Total Protein 5.7 L Albumin 2.9 L Amylase <30 L Vitamin B6 Vitamin B12 Folate 02/01/23 02/01/23 02/01/23 05:05 05:05 16:24 WBC RBC 2.71 L Hgb 9.6 L Hct 28.6 L MCV 105.3 H MCH 35.5 H RDW 15.8 H Plt Count 59 L Lymphocytes # 0.8 L Lymphocytes # (Manual) PT INR ABG pH ABG pCO2 ABG pO2 ABG HCO3 ABG Total CO2 ABG O2 Saturation Sodium 136 L Potassium Chloride Carbon Dioxide BUN 34 H Creatinine 1.55 H Glucose 128 H POC Glucose (mg/dL) 135 H Calcium Phosphorus Magnesium AST Total Protein 5.9 L Albumin 3.0 L Amylase Vitamin B6 Vitamin B12 Folate 02/01/23 02/02/23 02/02/23 20:15 01:27 10:51 WBC 2.2 L RBC 2.75 L Hgb 9.7 L Hct 29.1 L MCV 105.9 H MCH 35.4 H RDW 15.8 H Plt Count 59 L Lymphocytes # Lymphocytes # (Manual) PT INR ABG pH ABG pCO2 ABG pO2 ABG HCO3 ABG Total CO2 ABG O2 Saturation Sodium Potassium Chloride Carbon Dioxide BUN Creatinine Glucose POC Glucose (mg/dL) 145 H 135 H Calcium Phosphorus Magnesium AST Total Protein Albumin Amylase Vitamin B6 Vitamin B12 Folate 02/02/23 02/03/23 02/03/23 10:51 08:18 08:18 WBC 2.4 L RBC 2.40 L Hgb 8.2 L D Hct 24.8 L MCV 103.3 H MCH RDW 16.6 H Plt Count 42 L Lymphocytes # Lymphocytes # (Manual) 0.62 L PT INR ABG pH ABG pCO2 ABG pO2 ABG HCO3 ABG Total CO2 ABG O2 Saturation Sodium Potassium Chloride 108 H 111 H Carbon Dioxide 21 L BUN 28 H Creatinine 1.45 H Glucose 101 H POC Glucose (mg/dL) Calcium 8.1 L Phosphorus Magnesium AST 15 L Total Protein 4.9 L Albumin 2.3 L Amylase Vitamin B6 Vitamin B12 Folate 02/03/23 02/03/23 02/04/23 13:16 17:00 08:17 WBC 3.6 L RBC 2.77 L Hgb 9.8 L D Hct 29.1 L MCV 104.7 H MCH 35.3 H RDW 15.8 H Plt Count 79 L D Lymphocytes # 0.7 L Lymphocytes # (Manual) PT INR ABG pH ABG pCO2 ABG pO2 ABG HCO3 ABG Total CO2 ABG O2 Saturation Sodium Potassium Chloride Carbon Dioxide BUN Creatinine Glucose POC Glucose (mg/dL) 67 L 156 H Calcium Phosphorus Magnesium AST Total Protein Albumin Amylase Vitamin B6 Vitamin B12 Folate 02/04/23 02/04/23 02/04/23 08:17 08:57 09:26 WBC RBC Hgb Hct MCV MCH RDW Plt Count Lymphocytes # Lymphocytes # (Manual) PT INR ABG pH ABG pCO2 ABG pO2 ABG HCO3 ABG Total CO2 ABG O2 Saturation Sodium Potassium Chloride 108 H Carbon Dioxide BUN Creatinine Glucose 111 H POC Glucose (mg/dL) 63 L 217 H Calcium Phosphorus Magnesium AST Total Protein 6.0 L Albumin 2.9 L Amylase Vitamin B6 Vitamin B12 Folate 02/04/23 02/05/23 02/05/23 12:57 07:20 07:20 WBC RBC 2.41 L Hgb 8.4 L Hct 24.5 L MCV 101.7 H MCH 35.1 H RDW 17.0 H Plt Count 64 L Lymphocytes # Lymphocytes # (Manual) PT INR ABG pH ABG pCO2 ABG pO2 ABG HCO3 ABG Total CO2 ABG O2 Saturation Sodium Potassium Chloride 111 H Carbon Dioxide BUN Creatinine Glucose 133 H POC Glucose (mg/dL) 163 H Calcium 7.8 L Phosphorus Magnesium AST Total Protein 4.9 L Albumin 2.2 L Amylase Vitamin B6 Vitamin B12 Folate 02/05/23 02/06/23 02/06/23 09:35 08:50 08:50 WBC RBC 2.61 L Hgb 9.0 L Hct 26.5 L MCV 101.6 H MCH RDW 17.6 H Plt Count 79 L Lymphocytes # 0.5 L Lymphocytes # (Manual) PT INR ABG pH ABG pCO2 ABG pO2 ABG HCO3 ABG Total CO2 ABG O2 Saturation Sodium Potassium Chloride 112 H Carbon Dioxide BUN 7 L Creatinine Glucose 103 H POC Glucose (mg/dL) 120 H Calcium 7.9 L Phosphorus Magnesium AST 16 L Total Protein 5.1 L Albumin 2.3 L Amylase Vitamin B6 Vitamin B12 Folate 02/06/23 02/06/23 02/07/23 08:50 23:16 08:12 WBC RBC Hgb Hct MCV MCH RDW Plt Count Lymphocytes # Lymphocytes # (Manual) PT INR ABG pH ABG pCO2 ABG pO2 ABG HCO3 ABG Total CO2 ABG O2 Saturation Sodium Potassium Chloride Carbon Dioxide BUN Creatinine Glucose POC Glucose (mg/dL) 111 H 121 H Calcium Phosphorus 2.1 L Magnesium 1.4 L AST Total Protein Albumin Amylase Vitamin B6 Vitamin B12 Folate 02/07/23 02/07/23 02/07/23 08:38 08:38 16:32 WBC RBC 2.36 L Hgb 8.4 L Hct 24.4 L MCV 103.1 H MCH 35.4 H RDW 17.4 H Plt Count 87 L Lymphocytes # Lymphocytes # (Manual) PT INR ABG pH ABG pCO2 ABG pO2 ABG HCO3 ABG Total CO2 ABG O2 Saturation Sodium Potassium Chloride 109 H Carbon Dioxide BUN 8 L Creatinine Glucose 119 H POC Glucose (mg/dL) 124 H Calcium 7.9 L Phosphorus 2.2 L Magnesium 1.5 L AST Total Protein 5.0 L Albumin 2.2 L Amylase Vitamin B6 Vitamin B12 Folate 02/08/23 02/08/23 02/08/23 06:03 07:32 07:32 WBC RBC Hgb Hct MCV MCH RDW Plt Count Lymphocytes # Lymphocytes # (Manual) PT INR ABG pH ABG pCO2 ABG pO2 ABG HCO3 ABG Total CO2 ABG O2 Saturation Sodium Potassium 3.3 L Chloride 109 H Carbon Dioxide BUN 6 L Creatinine Glucose 133 H POC Glucose (mg/dL) 130 H Calcium 8.2 L Phosphorus Magnesium AST Total Protein Albumin Amylase Vitamin B6 Vitamin B12 >3600.0 H Folate 02/08/23 02/08/23 02/08/23 07:32 07:53 09:39 WBC RBC Hgb Hct MCV MCH RDW Plt Count Lymphocytes # Lymphocytes # (Manual) PT INR ABG pH ABG pCO2 ABG pO2 ABG HCO3 ABG Total CO2 ABG O2 Saturation Sodium Potassium Chloride Carbon Dioxide BUN Creatinine Glucose POC Glucose (mg/dL) 173 H Calcium Phosphorus Magnesium AST Total Protein Albumin Amylase Vitamin B6 4 L Vitamin B12 Folate 34.10 H 02/08/23 02/08/23 02/08/23 09:39 11:49 16:42 WBC RBC 2.41 L Hgb 8.7 L Hct 24.9 L MCV 102.9 H MCH 36.0 H RDW 17.5 H Plt Count 101 L Lymphocytes # 0.8 L Lymphocytes # (Manual) PT INR ABG pH ABG pCO2 ABG pO2 ABG HCO3 ABG Total CO2 ABG O2 Saturation Sodium Potassium Chloride Carbon Dioxide BUN Creatinine Glucose POC Glucose (mg/dL) 155 H 166 H Calcium Phosphorus Magnesium AST Total Protein Albumin Amylase Vitamin B6 Vitamin B12 Folate 02/09/23 02/10/23 02/10/23 11:16 09:17 09:17 WBC RBC 2.78 L Hgb 9.7 L Hct 29.2 L MCV 104.8 H MCH RDW 17.8 H Plt Count Lymphocytes # Lymphocytes # (Manual) PT INR ABG pH ABG pCO2 ABG pO2 ABG HCO3 ABG Total CO2 ABG O2 Saturation Sodium Potassium Chloride 111 H 110 H Carbon Dioxide BUN 7 L 8 L Creatinine Glucose POC Glucose (mg/dL) Calcium 8.2 L 8.3 L Phosphorus Magnesium AST Total Protein Albumin Amylase Vitamin B6 Vitamin B12 Folate 02/10/23 02/11/23 02/11/23 16:32 16:39 20:20 WBC RBC Hgb Hct MCV MCH RDW Plt Count Lymphocytes # Lymphocytes # (Manual) PT INR ABG pH ABG pCO2 ABG pO2 ABG HCO3 ABG Total CO2 ABG O2 Saturation Sodium Potassium Chloride Carbon Dioxide BUN Creatinine Glucose POC Glucose (mg/dL) 136 H 142 H 147 H Calcium Phosphorus Magnesium AST Total Protein Albumin Amylase Vitamin B6 Vitamin B12 Folate 02/12/23 02/12/23 02/12/23 07:56 11:33 12:34 WBC RBC Hgb Hct MCV MCH RDW Plt Count Lymphocytes # Lymphocytes # (Manual) PT INR ABG pH ABG pCO2 ABG pO2 ABG HCO3 ABG Total CO2 ABG O2 Saturation Sodium Potassium Chloride 114 H Carbon Dioxide 19 L BUN Creatinine Glucose 108 H POC Glucose (mg/dL) 115 H 186 H Calcium 8.2 L Phosphorus Magnesium AST Total Protein Albumin Amylase Vitamin B6 Vitamin B12 Folate 02/12/23 12:53 WBC RBC Hgb Hct MCV MCH RDW Plt Count Lymphocytes # Lymphocytes # (Manual) PT INR ABG pH 7.22 L ABG pCO2 30 L ABG pO2 >400 H ABG HCO3 12 L ABG Total CO2 13 L ABG O2 Saturation 100.0 H Sodium Potassium Chloride Carbon Dioxide BUN Creatinine Glucose POC Glucose (mg/dL) Calcium Phosphorus Magnesium AST Total Protein Albumin Amylase Vitamin B6 Vitamin B12 Folate - Diagnostic Findings Chest x-ray: image reviewed Assessment and Plan Plan: Cardiac arrest. The patient had a V. fib cardiac arrest in the hospital and a prolonged 36 minutes CODE BLUE was performed on this patient during which the patient's cardiac rhythm most from V. fib, junctional, and subsequently into sinus bradycardia with return of circulation. Patient received CPR. The patient received defibrillation, amiodarone, magnesium, calcium chloride, and atropine. Acute respiratory failure, hypoxic in nature due to cardiac arrest, currently intubated on mechanical ventilator with subsequent improvement in oxygenation Coronary artery due to his coronary stenting of the RCA Chronic atrial fibrillation with previous unsuccessful cardioversions Ischemic myopathy with an EF of around 30-35% with moderate degree of mitral regurgitation, not to be a candidate for AICD placement because of an underlying malignancy which is to be advanced Pancreatic cancer, Staging PET scan 10/28/22, showed uptake in the pancreatic mass but no evidence of metastatic disease. EUS on 11/17, revealed a stent, bile duct stone 4 mm above the stent, 3 enlarged peripancreatic nodes with the largest 7 mm. The pancreatic head mass was identified, measuring 3.6 x 2.9 cm, without evidence of involvement of the SMA, celiac trunk, portal vein or superior mesenteric vein. Non-bleeding duodenal ulcer was observed. Referred to surgical Oncology Dr. Gallo, and was seen on 11/23/22. He was seen for his first office visit on 11/24/22. Neoadjuvant treatment recommended, mFOLFIRINOX started, he is s/p 3 cycles with GCSF. History of obstructive jaundice due to pancreatic tumor the patient is undergone previous biliary stenting Hypertension Hyperlipidemia Peripheral vascular disease Severe cachexia malnourishment Failure to thrive and the patient was receiving TPN via port over the right anterior chest, the patient has lost more than 100 pounds diagnosis of pancreatic cancer Diabetes mellitus type 2 Plan Continue vent support and wean the FiO2 Give 2 L of IV fluid bolus Maintenance fluids at the rate of 150 mL an hour Check CVP IV Zosyn Cardiology has opted to proceed with amiodarone drip Monitor cardiac rhythm and hold the beta blockers Check digoxin level Propofol for sedation Cardiology consultation Very poor prognosis We'll follow Time with Patient: Greater than 30
--- NOTE | 2023-02-12 13:59 | P.PCN ---
Date of Procedure: 02/12/23 Preoperative Diagnosis: Cardiac arrest Postoperative Diagnosis: Cardiac arrest Procedure(s) Performed: Central line Arterial line Anesthesia: local Operative Findings: Arterial line Indication: Hemodynamic monitoring. A time-out was completed verifying correct patient, procedure, site, positioning, and implant(s) or special equipment if applicable. Yuriy s test was performed to ensure adequate perfusion. The patient s left wrist was prepped and draped in sterile fashion. 1% Lidocaine was used to anesthetize the area. An 18G Arrow arterial line was introduced into the radial artery. The catheter was threaded over the guide wire and the needle was removed with appropriate pulsatile blood return. Blood loss was minimal. The catheter was then sutured in place to the skin and a sterile dressing applied. Perfusion to the extremity distal to the point of catheter insertion was checked and found to be adequate. The patient tolerated the procedure well and there were no complications. Central line insertion Indication: Hemodynamic monitoring/Intravenous access. A time-out was completed verifying correct patient, procedure, site, positioning, and implant(s) or special equipment if applicable. The patient was placed in a dependent position appropriate for central line placement based on the vein to be cannulated. The patients left neck was prepped and draped in sterile fashion. 1% Lidocaine was used to anesthetize the surrounding skin area. A triple lumen 9F Cordis catheter was introduced into the left internal jugular vein using Seldinger technique. The catheter was threaded smoothly over the guide wire and appropriate blood return was obtained. Each lumen of the catheter was evacuated of air and flushed with sterile saline. The catheter was then sutured in place to the skin and a sterile dressing applied. Perfusion to the extremity distal to the point of catheter insertion was checked and found to be adequate. The patient tolerated the procedure well and there were no complications. Indication: Hemodynamic monitoring.
[2023-02-12] MEDS ORDERED: SODIUM CHLORIDE 0.9% 1,000 ML IV ONE (14:00)
--- NOTE | 2023-02-12 14:00 | P.PN ---
Subjective Progress Note Date: 02/12/23 PROGRESS NOTE The patient is a 68-year-old male, who was admitted on January 31 with evidence of atrial fibrillation. He has a known history of CAD, post stenting of the RCA in 1996, severe ischemic cardiomyopathy, moderate mitral regurgitation, hypertension hyperlipidemia and peripheral vascular disease who was being evaluated to undergo an ICD implant that was canceled because of a diagnosis of pancreatic cancer. The patient has lost a lot of weight and has not been able to eat. According to the nursing staff he was relatively stable when he went into ventricular tachycardia and had a cardiac arrest requiring a prolonged CPR with subsequent sikh of sinus mechanism after receiving multiple shocks, epinephrine and amiodarone. According to the note patient has been having severe abdominal pain and had been unable to eat or drink. He was seen in the ICU, intubated and sedated. Over the last few days the patient had episode of bradycardia and pauses. PHYSICAL EXAMINATION: Blood pressure 84/50 heart rate 61, intubated and sedated, cachectic LUNGS: Clear to auscultation HEART: Irregular rate and rhythm, S1, S2. No S3. systolic ejection murmur ABDOMEN: Soft, positive bowel sounds, no organomegaly EXTREMETIES: No edema LAB: BUN 9, creatinine 0.89, pH 7.22. On February 10 his hemoglobin was 9.7 IMPRESSION: 1. Cardiac arrest with recurrent ventricular fibrillation and tachycardia requiring CPR 2. Known history of severe ischemic cardiomyopathy 3. Known history of CAD status post stenting of the RCA in 1996 4. Pancreatic cancer 5. Poor by mouth intake with severe weight loss 6. Anemia PLAN: 1. IV amiodarone drip 2. Patient's prognosis is very poor in view of the malignancy, the weight loss. He is not a candidate for aggressive cardiac workup 3. Depending on the blood pressure adjust beta arslan 4. Depending on his progress further recommendations will be made 5. We will await the input of the oncology service regarding prognosis Objective - Vital Signs Vital signs: Vital Signs Temp 98.3 F 02/12/23 12:32 Pulse 56 L 02/12/23 13:15 Resp 16 02/12/23 13:15 BP 81/54 02/12/23 13:15 Pulse Ox 100 02/12/23 13:00 FiO2 100 02/12/23 13:00 Intake & Output 02/11/23 02/12/23 02/12/23 18:59 06:59 18:59 Intake Total 400 120 Output Total 0 0 Balance 400 120 0 Intake: Oral 400 120 Output: Gastric Drainage 0 Urine 0 Stool 0 0 Urine/Stool Mix 0 Emesis 0 Oral Regurgitation 0 Other 0 Other: Voiding Method Toilet Toilet # Voids 0 1 1 # Bowel Movements 0 - Labs CBC & Chem 7: 02/10/23 09:17 02/12/23 07:56 Labs: Abnormal Lab Results - Last 24 Hours (Table) 02/11/23 02/11/23 02/12/23 Range/Units 16:39 20:20 07:56 ABG pH (7.35-7.45) ABG pCO2 (35-45) mmHg ABG pO2 (83-108) mmHg ABG HCO3 (21-25) mmol/L ABG Total CO2 (19-24) mmol/L ABG O2 Saturation (94-97) % Chloride 114 H (98-107) mmol/L Carbon Dioxide 19 L (22-30) mmol/L Glucose 108 H (74-99) mg/dL POC Glucose (mg/dL) 142 H 147 H (70-110) mg/dL Calcium 8.2 L (8.4-10.2) mg/dL 02/12/23 02/12/23 02/12/23 Range/Units 11:33 12:34 12:53 ABG pH 7.22 L (7.35-7.45) ABG pCO2 30 L (35-45) mmHg ABG pO2 >400 H (83-108) mmHg ABG HCO3 12 L (21-25) mmol/L ABG Total CO2 13 L (19-24) mmol/L ABG O2 Saturation 100.0 H (94-97) % Chloride (98-107) mmol/L Carbon Dioxide (22-30) mmol/L Glucose (74-99) mg/dL POC Glucose (mg/dL) 115 H 186 H (70-110) mg/dL Calcium (8.4-10.2) mg/dL
[2023-02-12] MEDS: NOREPINEPHRINE 8 MG in SODIUM CHLORIDE 0.9% 250 ML IV SCH (14:07)
[2023-02-12 14:40] LABS: Anisocytosis Slight; Basophils % (A) 0 %; Eosinophils % (A) 0 %; HCT 23.9 % (39.0-53.0); Hypochromasia Slight; Lymphocytes # (A) 0.6 k/uL (1.0-4.8); Lymphocytes % (A) 4 %; MCH 35.3 pg (25.0-35.0); MCV 107.2 fL (80.0-100.0); Macrocytosis Marked; Mean Platelet Volume 8.7; Monocytes # (A) 0.5 k/uL (0-1.0); Monocytes % (A) 3 %; Neutrophils # (A) 14.5 k/uL (1.3-7.7); Neutrophils % (A) 92 %; Platelet Count 172 k/uL (150-450); Poikilocytosis Moderate; RBC 2.23 m/uL (4.30-5.90); RDW 18.3 % (11.5-15.5); WBC 15.8 k/uL (3.8-10.6)
[2023-02-12 14:43] LABS: HGB 7.9 gm/dL (13.0-17.5)
[2023-02-12 14:54] LABS: Albumin 1.8 g/dL (3.5-5.0); Potassium 4.1 mmol/L (3.5-5.1); Total Bilirubin 0.5 mg/dL (0.2-1.3); Total Protein 4.2 g/dL (6.3-8.2)
[2023-02-12 14:57] LABS: Polychromasia Present
[2023-02-12 14:59] LABS: Ovalocytes Present
--- NOTE | 2023-02-12 18:00 | XR ---
EXAMINATION TYPE: XR chest 1V DATE OF EXAM: 02/12/2023 COMPARISON: Earlier in the day HISTORY: SOB, Follow Up FINDINGS: Indwelling tubes and catheters are unchanged. Interval placement of left IJ central venous line with its distal tip overlying the SVC. MediPort catheter is unchanged. Right basilar increased density may reflect atelectasis and/or small effusion. Stable appearance of the cardio-mediastinal structures at this time. IMPRESSION: 1. Interval placement of left IJ central venous line with its distal tip overlying the SVC. 2. Right basilar increased density may reflect atelectasis and/or small effusion.
[2023-02-12] MEDS ORDERED: AMIODARONE 450 MG in DEXTROSE 5% IN WATER 250 ML IV SCH ×2 (19:00)
[2023-02-12] MEDS: PIPERACILLIN-TAZOBACTAM 3.375 GM in SODIUM CHLORIDE 0.9% 100 ML IVPB SCH (19:06)
--- NOTE | 2023-02-12 19:14 | P.PN ---
Subjective This is a pleasant 67 years old male with multiple medical problems who was admitted initially on 02/01 with shortness of breath and borderline blood pressure 105/78 thought secondary to A. fib and RVR as his heart rate was around 133. Patient has been able to by lettuce cutter and his dose of metoprolol increased from 50 mg up to 100 mg and continued on digoxin 250 mg as well as he is on liquids 5 mg. Patient with recent history of pancreatic cancer diagnosed last September and his been having chronic abdominal pain in the epigastrium about 7/10 similar since then. He has some mouth sores and bicytopenia secondary to recent chemotherapy, oncology team on the case. He is kept nothing by mouth and TPN is running partially because of his mouth sores. He still have bouts of diarrhea but states that he started getting better today and more formed. C. diff is negative. Patient says that his weakness is better than last week, he fell 2 days ago, [place] was negative at that time. He is fully awake and oriented denies chest pain or dyspnea. He still feels generally weak and he still have abdominal pain as above. No urinary complaint s. Vitas looks stable. Patient is afebrile. Hemoglobin 8.4 and platelet count improved to 83. CT of the abdomen and pelvis showing cholelithiasis with biliary stent in place and fluid distention of the colon was closed with diarrhea. Patient currently on D5 normal saline at 50 mL per hour and Eliquis 5 mg. We will check vitamin B12 and vitamin D. Also will check stool for elastase 02/09/2023 Patient pulled his PICC line accidentally today. Patient is not confused. Patient does swallow evaluation and I agree with starting him on liquid diet with advanced as tolerated. His mouth sores have resolved significantly and they are minimum in his examination today. His A. fib is in control on metoprolol higher dose 100 mg and Eliquis 5 mg BMP is a stable Check labs in the morning including platelet count and hemoglobin and BMP. Patient says that diarrhea has significantly improved. We still waiting for elastase to check for pancreatic function. 02/10/2023 Patient diarrhea has stopped, his heart rate and A. fib has been controlled which were the 2 main acute reasons he came into the hospital with. Patient still with chronic problems since last September including loss of energy, epigastric and upper abdominal pain and severe anorexia related to his cancer. Patient is open to go to rehab however his main problem is inability to eat very at Oncology team on the case. We checked vitamin B12 more than 3600 which is very high level above the limits therefore we discontinued his vitamin B12 pills Vitamin B6 is low last than 5 at 4. Therefore was set replacement therapy. 02/11/2023 Patient clinically is the same, no significant diarrhea, abdominal pain is chronic. Still has low appetite Today I have a discussion with the patient about his eating and anorexia and he is willing to try soft diet today. Therefore we don't advance his liquid diet until soft diet and keep monitoring The meantime we will hold Imodium so we can monitor his diarrhea. Discussed with staff to check for still elastase. Oncology team on the case 02/12/2023 Today patient developed cardiac arrest and CODE BLUE was called. He underwent CPR several rounds and had cardiac rhythm of V. fib and V. tach. Patient regained blood pressure and pulse rate, He is intubated and sedated and transferred to the ICU. Patient was examined at bedside during the code, EKG showing ischemic changes, rhythm is bradycardic and patient was hypotensive. Pulmonary/critical care team and cardiology team evaluated the patient Continue with amiodarone, normal saline, antibiotic with Zosyn. I discussed the case with cardiology team, patient is a known severe ischemic cardiomyopathy, he is not a candidate for cardiac cath, discussed the prognosis with oncology team is recommended. I discussed the case with the sister Halle over the phone who told me she is the next of kin, and there are no other family members to discuss the case with, the case was discussed with her in detail, hospital course as well as today's event are explained to her. She referred to his advance directive stating no extraheroic measures, she confirms to me he is DO NOT RESUSCITATE, also she would like to talk to hospice team. consult for hospice for information is placed Patient is a known pancreatic cancer case, with severe anorexia since September 2022 as he stated, with significant weight loss, patient did not eat this mornin g, confirmed with the bedside nurse. Status post 3 cycles of chemotherapy. Prognosis remains guarded, Also we will consult oncology team for prognosis. I discussed the case with the ICU bed side nurse, he has advanced directive and Halle is name as his medical advocate. Objective - Vital Signs Vital signs: Vital Signs Temp 96.7 F L 02/12/23 16:00 Pulse 49 L 02/12/23 17:00 Resp 16 02/12/23 17:00 BP 100/56 02/12/23 16:15 Pulse Ox 92 L 02/12/23 17:00 FiO2 50 02/12/23 17:00 Intake & Output 02/11/23 02/12/23 02/12/23 18:59 06:59 18:59 Intake Total 939 468 0438.364 Output Total 0 235 Balance 909 441 7865.364 Intake: IV 1650 Sodium Chloride 0.9% 1, 650 000 ml @ 150 mls/hr IV . Q6H40M [facility] Rx#:[id number] Sodium Chloride 0.9% 1, 1000 000 ml @ 999 mls/hr IV . Q1H1M [facility] Rx#:[id number] Intake, IV Titration 63.364 Amount Amiodarone 360 mg In 49.444 Dextrose 5% in Water 200 ml @ 1 MG/MIN 33.333 mls/ hr IV .Q6H [facility] Rx#: [id number] propofoL 1,000 mg In 13.920 Empty Bag 1 bag @ 15 MCG/ KG/MIN 6.736 mls/hr IV . Q38H94N [facility] Rx#:[id number] Oral 400 120 Output: Gastric Drainage 0 Urine 0 235 Stool 0 0 Urine/Stool Mix 0 Emesis 0 Oral Regurgitation 0 Other 0 Other: Voiding Method Toilet Toilet # Voids 0 1 1 # Bowel Movements 0 ABP, PAP, CO, CI - Last Documented Arterial Blood Pressure 119/53 - Exam GENERAL: The patient is intubated and sedated HEENT: Pupils are round and equally reacting to light. EOMI. No scleral icterus. No conjunctival pallor. Normocephalic, atraumatic. No pharyngeal erythema. No thyromegaly. -CARDIOVASCULAR: S1 and S2 present. No murmurs, rubs, or gallops. Bradycardic -PULMONARY: Chest is clear to auscultation, no wheezing or crackles. Patient is not Tachypneic -ABDOMEN: Soft, epigastric tenderness (chronic) no rebound tenderness or guarding, nondistended, normoactive bowel sounds. No palpable organomegaly. MUSCULOSKELETAL: No joint swelling or deformity. EXTREMITIES: No cyanosis, clubbing, or pedal edema. NEUROLOGICAL: Gross neurological examination did not reveal any focal deficits. SKIN: No rashes. no petechiae. - Labs CBC & Chem 7: 02/12/23 14:20 02/12/23 14:24 Labs: Abnormal Lab Results - Last 24 Hours (Table) 02/11/23 02/12/23 02/12/23 Range/Units 20:20 07:56 11:33 WBC (3.8-10.6) k/uL RBC (4.30-5.90) m/uL Hgb (13.0-17.5) gm/dL Hct (39.0-53.0) % MCV (80.0-100.0) fL MCH (25.0-35.0) pg RDW (11.5-15.5) % Neutrophils # (1.3-7.7) k/uL Lymphocytes # (1.0-4.8) k/uL Macrocytosis ABG pH (7.35-7.45) ABG pCO2 (35-45) mmHg ABG pO2 (83-108) mmHg ABG HCO3 (21-25) mmol/L ABG Total CO2 (19-24) mmol/L ABG O2 Saturation (94-97) % Chloride 114 H (98-107) mmol/L Carbon Dioxide 19 L (22-30) mmol/L Glucose 108 H (74-99) mg/dL POC Glucose (mg/dL) 147 H 115 H (70-110) mg/dL Plasma Lactic Acid Magen (0.7-2.0) mmol/L Calcium 8.2 L (8.4-10.2) mg/dL Alkaline Phosphatase (38-126) U/L Total Protein (6.3-8.2) g/dL Albumin (3.5-5.0) g/dL Digoxin ng/mL 02/12/23 02/12/23 02/12/23 Range/Units 12:34 12:53 14:20 WBC 15.8 H (3.8-10.6) k/uL RBC 2.23 L (4.30-5.90) m/uL Hgb 7.9 L D (13.0-17.5) gm/dL Hct 23.9 L (39.0-53.0) % MCV 107.2 H (80.0-100.0) fL MCH 35.3 H (25.0-35.0) pg RDW 18.3 H (11.5-15.5) % Neutrophils # 14.5 H (1.3-7.7) k/uL Lymphocytes # 0.6 L (1.0-4.8) k/uL Macrocytosis Marked A ABG pH 7.22 L (7.35-7.45) ABG pCO2 30 L (35-45) mmHg ABG pO2 >400 H (83-108) mmHg ABG HCO3 12 L (21-25) mmol/L ABG Total CO2 13 L (19-24) mmol/L ABG O2 Saturation 100.0 H (94-97) % Chloride (98-107) mmol/L Carbon Dioxide (22-30) mmol/L Glucose (74-99) mg/dL POC Glucose (mg/dL) 186 H (70-110) mg/dL Plasma Lactic Acid Magen (0.7-2.0) mmol/L Calcium (8.4-10.2) mg/dL Alkaline Phosphatase (38-126) U/L Total Protein (6.3-8.2) g/dL Albumin (3.5-5.0) g/dL Digoxin ng/mL 02/12/23 02/12/23 02/12/23 Range/Units 14:20 14:20 14:24 WBC (3.8-10.6) k/uL RBC (4.30-5.90) m/uL Hgb (13.0-17.5) gm/dL Hct (39.0-53.0) % MCV (80.0-100.0) fL MCH (25.0-35.0) pg RDW (11.5-15.5) % Neutrophils # (1.3-7.7) k/uL Lymphocytes # (1.0-4.8) k/uL Macrocytosis ABG pH (7.35-7.45) ABG pCO2 (35-45) mmHg ABG pO2 (83-108) mmHg ABG HCO3 (21-25) mmol/L ABG Total CO2 (19-24) mmol/L ABG O2 Saturation (94-97) % Chloride 114 H (98-107) mmol/L Carbon Dioxide 18 L (22-30) mmol/L Glucose 184 H (74-99) mg/dL POC Glucose (mg/dL) (70-110) mg/dL Plasma Lactic Acid Magen 5.7 H* (0.7-2.0) mmol/L Calcium 8.0 L (8.4-10.2) mg/dL Alkaline Phosphatase 140 H (38-126) U/L Total Protein 4.2 L (6.3-8.2) g/dL Albumin 1.8 L (3.5-5.0) g/dL Digoxin 3.1 H* ng/mL Assessment and Plan Assessment: Status post cardiac arrest and CPR with eventual regaining of circulation Hypotension and bradycardia secondary to above Acute hypoxemic respiratory failure requiring intubation and mechanical ventilation A. fib and RVR, present on admission, currently rate is better controlled Pancreatic cancer status post chemotherapy Severe anorexia, since last September, most likely related to his cancer Chronic abdominal pain secondary to above. 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 Continue with amiodarone drip per cardiology's recommendation Continue with intravenous hydration Hematology/oncology team already on the case, cardiology team of the case Discontinue metoprolol and detoxing. Continue with Eliquis Prognosis is poor. Discussed with Asst. Halle was next of kin and medical advocate and stated she wants to be DO NOT RESUSCITATE, requested to talk to hospice team. Labs and medication were reviewed.. Continue same treatment. Continue with symptomatic treatment. Resume home medication. Monitor labs and vitals. DVT and GI prophylaxis. Further recommendations as per clinical course of the patient DVT prophylaxis: Eliquis GI Prophylaxis: Ppi PT/OT: Recommended subacute rehab Prognosis is guarded and poor
[2023-02-12] MEDS: CHLORHEXIDINE GLUCONATE 15 ML CUP MUCOUS MEM SCH (22:33)
[2023-02-12] MEDS: PRAVASTATIN SODIUM 20 MG TAB PO SCH (22:33)
[2023-02-12 22:46] LABS: Glucose,Whole Blood 96 mg/dL (70-110)
[2023-02-13] MEDS: PIPERACILLIN-TAZOBACTAM 3.375 GM in SODIUM CHLORIDE 0.9% 100 ML IVPB SCH ×4 (00:51→23:58)
[2023-02-13 05:00] LABS: Glucose,Whole Blood 109 mg/dL (70-110)
[2023-02-13] MEDS: SODIUM CHLORIDE 0.9% 1,000 ML IV SCH ×3 (05:13→17:28)
[2023-02-13 05:19] LABS: Anisocytosis Slight; HCT 25.9 % (39.0-53.0); HGB 8.6 gm/dL (13.0-17.5); Hypochromasia Slight; MCH 35.7 pg (25.0-35.0); MCHC 33.3 g/dL (31.0-37.0); MCV 107.1 fL (80.0-100.0); Macrocytosis Marked; Mean Platelet Volume 8.9; Platelet Count 162 k/uL (150-450); Poikilocytosis Moderate; RBC 2.42 m/uL (4.30-5.90); RDW 18.6 % (11.5-15.5); WBC 10.4 k/uL (3.8-10.6)
[2023-02-13 05:31] LABS: Albumin 1.9 g/dL (3.5-5.0); Calcium 7.8 mg/dL (8.4-10.2); Total Bilirubin 0.5 mg/dL (0.2-1.3); Total Protein 4.7 g/dL (6.3-8.2)
[2023-02-13] MEDS: HYDROcodone/APAP 10-325MG 1 EACH TAB PO PRN ×3 (05:40→21:56)
--- NOTE | 2023-02-13 06:19 | XR ---
EXAMINATION TYPE: XR chest 1V portable DATE OF EXAM: 02/13/2023 CLINICAL HISTORY: Difficulty breathing progress study. TECHNIQUE: Single AP portable semiupright view of the chest is obtained. COMPARISON: Chest x-ray from one day earlier and older studies. FINDINGS: Stable endotracheal and orogastric tubes. Stable right internal jugular Mediport catheter. Persistent right basilar opacity. Left lung is clear. Cardiac silhouette size is stable and upper trimble its of normal. Osseous structures are intact. IMPRESSION: Persistent right lower lung acute infiltrate and/or atelectasis and possible small tiny r ight pleural effusion.
[2023-02-13 06:21] LABS: ABG Base Excess -4.4 mmol/L; ABG HCO3 21 mmol/L (21-25); ABG PCO2 35 mmHg (35-45); ABG PH 7.38 (7.35-7.45); ABG PO2 215 mmHg (83-108); ABG TCO2 22 mmol/L (19-24)
[2023-02-13] MEDS: INSULIN ASPART (NovoLOG) 100 UNIT/ML VIAL SQ SCH ×4 (07:16→23:13)
--- NOTE | 2023-02-13 08:40 | P.PN ---
Subjective PROGRESS NOTE The patient is a 68-year-old male, who was admitted on January 31 with evidence of atrial fibrillation. He has a known history of CAD, post stenting of the RCA in 1996, severe ischemic cardiomyopathy, moderate mitral regurgitation, hyp ertension hyperlipidemia and peripheral vascular disease who was being evaluated to undergo an ICD implant that was canceled because of a diagnosis of pancreatic cancer. The patient has lost a lot of weight and has not been able to eat. According to the nursing staff he was relatively stable when he went into ventricular tachycardia and had a cardiac arrest requiring a prolonged CPR with subsequent buddhism of sinus mechanism after receiving multiple shocks, epinephrine and amiodarone. According to the note patient has been having severe abdominal pain and had been unable to eat or drink. He was seen in the ICU, intubated and sedated. Over the last few days the patient had episode of bradycardia and pauses. 02/13 Patient seen and examined. Patient remains intubated and sedated on ventilator. PEEP of 5 and FiO2 50%. Blood pressures 110s over 50s off of any vasopressors. Remains sedated. Intermittent bradycardia heart rates in the 40s and 50s and intermittent second-degree blocks. Amio drip was stopped secondary to bradycardia. PHYSICAL EXAMINATION: Blood pressure 84/50 heart rate 61, intubated and sedated, cachectic LUNGS: Clear to auscultation HEART: Irregular rate and rhythm, S1, S2. No S3. systolic ejection murmur ABDOMEN: Soft, positive bowel sounds, no organomegaly EXTREMETIES: No edema IMPRESSION: 1. Cardiac arrest with recurrent ventricular fibrillation and tachycardia requiring CPR 2. Known history of severe ischemic cardiomyopathy 3. Known history of CAD status post stenting of the RCA in 1996 4. Pancreatic cancer 5. Poor by mouth intake with severe weight loss 6. Anemia PLAN: Amiodarone drip was discontinued secondary to significant bradycardia with heart rates in the 40s to 50s. Heart rates remained in the 50s with intermittent second-degree block. Evaluate prognosis however appears to have poor prognosis and the AICD would likely not alter patient's prognosis. Continue supportive care. Holding amiodarone and beta arslan. Further recommendations to follow. Objective - Vital Signs Vital signs: Vital Signs Temp 96 F L 02/13/23 04:00 Pulse 52 L 02/13/23 07:00 Resp 13 02/13/23 07:00 BP 109/53 02/13/23 07:00 Pulse Ox 100 02/13/23 07:00 FiO2 50 02/13/23 04:38 Intake & Output 02/12/23 02/13/23 02/13/23 18:59 06:59 18:59 Intake Total 6255.516 6771.000 150 Output Total 260 350 30 Balance 9396.432 5024.000 120 Weight 79.4 kg Intake: IV 1800 1800 150 Sodium Chloride 0.9% 1, 800 1800 150 000 ml @ 150 mls/hr IV . Q6H40M [facility] Rx#:[id number] Sodium Chloride 0.9% 1, 1000 000 ml @ 999 mls/hr IV . Q1H1M [facility] Rx#:[id number] Intake, IV Titration 149.444 200.000 Amount Amiodarone 360 mg In 49.444 Dextrose 5% in Water 200 ml @ 1 MG/MIN 33.333 mls/ hr IV .Q6H [facility] Rx#: [id number] propofoL 1,000 mg In 100.000 200.000 Empty Bag 1 bag @ 15 MCG/ KG/MIN 6.736 mls/hr IV . [id number] [facility] Rx#:[id number] Output: Urine 260 350 30 Stool 0 Other: Voiding Method Indwelling Catheter Indwelling Catheter # Voids 1 ABP, PAP, CO, CI - Last Documented Arterial Blood Pressure 117/47 - Labs CBC & Chem 7: 02/13/23 04:48 02/13/23 04:48 Labs: Abnormal Lab Results - Last 24 Hours (Table) 02/12/23 02/12/23 02/12/23 Range/Units 07:56 11:33 12:34 WBC (3.8-10.6) k/uL RBC (4.30-5.90) m/uL Hgb (13.0-17.5) gm/dL Hct (39.0-53.0) % MCV (80.0-100.0) fL MCH (25.0-35.0) pg RDW (11.5-15.5) % Neutrophils # (1.3-7.7) k/uL Lymphocytes # (1.0-4.8) k/uL Macrocytosis ABG pH (7.35-7.45) ABG pCO2 (35-45) mmHg ABG pO2 (83-108) mmHg ABG HCO3 (21-25) mmol/L ABG Total CO2 (19-24) mmol/L ABG O2 Saturation (94-97) % Chloride 114 H (98-107) mmol/L Carbon Dioxide 19 L (22-30) mmol/L Creatinine (0.66-1.25) mg/dL Glucose 108 H (74-99) mg/dL POC Glucose (mg/dL) 115 H 186 H (70-110) mg/dL Plasma Lactic Acid Magen (0.7-2.0) mmol/L Calcium 8.2 L (8.4-10.2) mg/dL Alkaline Phosphatase (38-126) U/L Total Protein (6.3-8.2) g/dL Albumin (3.5-5.0) g/dL Digoxin ng/mL 02/12/23 02/12/23 02/12/23 Range/Units 12:53 14:20 14:20 WBC 15.8 H (3.8-10.6) k/uL RBC 2.23 L (4.30-5.90) m/uL Hgb 7.9 L D (13.0-17.5) gm/dL Hct 23.9 L (39.0-53.0) % MCV 107.2 H (80.0-100.0) fL MCH 35.3 H (25.0-35.0) pg RDW 18.3 H (11.5-15.5) % Neutrophils # 14.5 H (1.3-7.7) k/uL Lymphocytes # 0.6 L (1.0-4.8) k/uL Macrocytosis Marked A ABG pH 7.22 L (7.35-7.45) ABG pCO2 30 L (35-45) mmHg ABG pO2 >400 H (83-108) mmHg ABG HCO3 12 L (21-25) mmol/L ABG Total CO2 13 L (19-24) mmol/L ABG O2 Saturation 100.0 H (94-97) % Chloride (98-107) mmol/L Carbon Dioxide (22-30) mmol/L Creatinine (0.66-1.25) mg/dL Glucose (74-99) mg/dL POC Glucose (mg/dL) (70-110) mg/dL Plasma Lactic Acid Magen (0.7-2.0) mmol/L Calcium (8.4-10.2) mg/dL Alkaline Phosphatase (38-126) U/L Total Protein (6.3-8.2) g/dL Albumin (3.5-5.0) g/dL Digoxin 3.1 H* ng/mL 02/12/23 02/12/23 02/13/23 Range/Units 14:20 14:24 04:48 WBC (3.8-10.6) k/uL RBC 2.42 L (4.30-5.90) m/uL Hgb 8.6 L (13.0-17.5) gm/dL Hct 25.9 L (39.0-53.0) % MCV 107.1 H (80.0-100.0) fL MCH 35.7 H (25.0-35.0) pg RDW 18.6 H (11.5-15.5) % Neutrophils # (1.3-7.7) k/uL Lymphocytes # (1.0-4.8) k/uL Macrocytosis Marked A ABG pH (7.35-7.45) ABG pCO2 (35-45) mmHg ABG pO2 (83-108) mmHg ABG HCO3 (21-25) mmol/L ABG Total CO2 (19-24) mmol/L ABG O2 Saturation (94-97) % Chloride 114 H (98-107) mmol/L Carbon Dioxide 18 L (22-30) mmol/L Creatinine (0.66-1.25) mg/dL Glucose 184 H (74-99) mg/dL POC Glucose (mg/dL) (70-110) mg/dL Plasma Lactic Acid Magen 5.7 H* (0.7-2.0) mmol/L Calcium 8.0 L (8.4-10.2) mg/dL Alkaline Phosphatase 140 H (38-126) U/L Total Protein 4.2 L (6.3-8.2) g/dL Albumin 1.8 L (3.5-5.0) g/dL Digoxin ng/mL 02/13/23 02/13/23 Range/Units 04:48 06:01 WBC (3.8-10.6) k/uL RBC (4.30-5.90) m/uL Hgb (13.0-17.5) gm/dL Hct (39.0-53.0) % MCV (80.0-100.0) fL MCH (25.0-35.0) pg RDW (11.5-15.5) % Neutrophils # (1.3-7.7) k/uL Lymphocytes # (1.0-4.8) k/uL Macrocytosis ABG pH (7.35-7.45) ABG pCO2 (35-45) mmHg ABG pO2 215 H (83-108) mmHg ABG HCO3 (21-25) mmol/L ABG Total CO2 (19-24) mmol/L ABG O2 Saturation 99.0 H (94-97) % Chloride 117 H (98-107) mmol/L Carbon Dioxide 20 L (22-30) mmol/L Creatinine 1.31 H (0.66-1.25) mg/dL Glucose 105 H (74-99) mg/dL POC Glucose (mg/dL) (70-110) mg/dL Plasma Lactic Acid Magen (0.7-2.0) mmol/L Calcium 7.8 L (8.4-10.2) mg/dL Alkaline Phosphatase 142 H (38-126) U/L Total Protein 4.7 L (6.3-8.2) g/dL Albumin 1.9 L (3.5-5.0) g/dL Digoxin ng/mL
[2023-02-13] MEDS: PANTOPRAZOLE 40 MG/10 ML VIAL IV SCH (09:06)
[2023-02-13] MEDS: CHOLECALCIFEROL 25 MCG (1000 IU) TABLET PO SCH (09:06)
[2023-02-13] MEDS: APIXABAN 5 MG TAB PO SCH ×2 (09:06→21:57)
[2023-02-13] MEDS: CHLORHEXIDINE GLUCONATE 15 ML CUP MUCOUS MEM SCH ×2 (09:06→20:56)
[2023-02-13] MEDS: PYRIDOXINE 50 MG TAB PO SCH ×2 (09:07→21:57)
--- NOTE | 2023-02-13 09:25 | XR ---
EXAMINATION TYPE: XR chest 1V DATE OF EXAM: 02/13/2023 CLINICAL HISTORY: Cardiac arrest. TECHNIQUE: Single AP portable upright view of the chest is obtained. COMPARISON: Chest x-ray from earlier today FINDINGS: Stable and Satisfactory positioning of endotracheal and orogastric tubes. Redemonstration of right internal jugular Mediport catheter. Persistent right basilar opacity. Left lung remains clear. Cardiac silhouette size is stable and uppe r limits of normal. Osseous structures are intact. IMPRESSION: As above. No significant change from x-ray earlier today.
--- NOTE | 2023-02-13 11:43 | P.CNNES ---
History of Present Illness Consult date: 02/13/23 Requesting physician: Jeannie Faria Reason for Consult: cardiac arrest History of Present Illness: This is a 68-year-old gentleman with history of coronary artery disease, chronic atrial fibrillation and severe cardiomyopathy in addition to recent diagnosis of pancreatic cancer with a cardiac arrest on 02/12/2023. History was obtained from medical record. It seems a code was called around 1131 yesterday in our facility. ACLS protocol was immediately performed and patient was in V. fib with no pulse and the patient that to call time was 36 minutes. Patient has received 6 shocks with amiodarone bolus. Received multiple doses of epinephrine 2 mg of magnesium 1 g of calcium chloride and then patient has ROSC. Around 1152. The patient had junctional bradycardia received atropine then again went into V. fib around 1157 with CPR resumed the was shocked again for the 6 minutes at 1158 and the was an lost around 1159. 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 As a result the patient was intubated on a ventilator. The patient is on IV propofol. Some other workup during his hospital visit consisted of: Heart rate has been in range of 40-50's. Vitamin B6 is 4 and a normal switch to be between 5 and 50 Most recent glucose serum is 105. Sodium is 140. Digoxin level is 3.1 which is a toxic and the normal supposed to be between 0.8- 2.0 Review of Systems Review of system is limited but the pertinent positive and negative as per HPI. Past Medical History Past Medical History: Atrial Fibrillation, Chest Pain / Angina, Diabetes Mellitus, Hyperlipidemia, Hypertension, Musculoskeletal Disorder, Osteoarthritis (OA) Additional Past Medical History / Comment(s): BACK PAIN R/T OLD INJURY. EDEMA FEET/ANKLES. kidney stones, Recent diagnosis of Pancreatic tumor. Patient has not had follow-up with Oncologist yet and was readmitted for increased pain. History of Any Multi-Drug Resistant Organisms: None Reported Past Surgical History: Back Surgery, Heart Catheterization, Heart Catheterization With Stent, Orthopedic Surgery Additional Past Surgical History / Comment(s): R Knee scope; Colonoscopy; Deviated Septum Repair. BACK SURG.X2 PTCA W/ STENTS X2. CARDIOVERSION 03/28/18. ERCP last week with Dr. Morfin out of [facility] with stent placement. Past Anesthesia/Blood Transfusion Reactions: No Reported Reaction Date of Last Stent Placement:: 1997 Past Psychological History: No Psychological Hx Reported Smoking Status: Former smoker Past Alcohol Use History: None Reported Past Drug Use History: None Reported - Past Family History Mother Family Medical History: Dementia, Memory Impairment Additional Family Medical History / Comment(s): Mother in her 80s r/t advanced dementia. Father Family Medical History: Myocardial Infarction (CT) Additional Family Medical History / Comment(s): Father from coronary artery disease. Sister(s) Additional Family Medical History / Comment(s): Patient has 3 sisters one past from CVA. One has coronary artery disease with stent in 1 has no major medical problems. Patient is not having any children. Patient does not have any brothers. Medications and Allergies Home Medications Medication Instructions Recorded Confirmed Type Apixaban [Eliquis] 5 mg PO BID 03/20/18 01/31/23 History Cyanocobalamin (Vitamin B-12) 1,000 mcg PO DAILY 03/20/18 01/31/23 History [Vitamin B-12] Cyclobenzaprine [Flexeril] 10 mg PO HS PRN 03/20/18 01/31/23 History Isosorbide Mononitrate ER [Imdur] 30 mg PO DAILY 03/20/18 01/31/23 History Nitroglycerin Sl Tabs [Nitrostat] 0.4 mg SUBLINGUAL Q5M PRN 03/20/18 01/31/23 History Pravastatin Sodium [Pravachol] 20 mg PO HS 12/13/19 01/31/23 History allopurinoL [Zyloprim] 100 mg PO DAILY 12/13/19 01/31/23 History Cholecalciferol [Vitamin D3 (25 50 mcg PO DAILY 10/13/22 01/31/23 History Mcg = 1000 Iu)] Metoprolol Tartrate [Lopressor] 50 mg PO HS 10/13/22 01/31/23 History Metoprolol Tartrate [Lopressor] 100 mg PO DAILY 10/13/22 01/31/23 History Furosemide [Lasix] 40 mg PO DAILY 10/20/22 01/31/23 History Insulin Degludec [Tresiba 10 units SQ DAILY #0 10/22/22 01/31/23 Rx Flextouch U-100 Pen] HYDROcodone/APAP 10-325MG [Moore 1 tab PO Q6HR PRN 01/31/23 01/31/23 History [id number]] Allergies Allergy/AdvReac Type Severity Reaction Status Date / Time morphine Allergy Swelling Verified 01/31/23 15:27 Physical Examination - Vital Signs Vital Signs: Vital Signs Temp Pulse Pulse Resp BP Pulse Ox FiO2 02/13/23 11:00 47 L 20 101/52 100 02/13/23 10:45 50 L 29 H 99 02/13/23 10:30 49 L 16 101/52 100 02/13/23 10:15 46 L 14 101/52 100 02/13/23 10:00 52 L 14 101/52 100 02/13/23 09:45 46 L 16 101/52 99 02/13/23 09:30 47 L 17 101/52 99 02/13/23 09:15 97.4 F L 48 L 17 99 02/13/23 09:00 49 L 19 100 02/13/23 08:45 44 L 14 100 02/13/23 08:35 50 02/13/23 08:30 50 L 10 L 100 02/13/23 08:15 51 L 13 100 02/13/23 08:00 48 L 21 100 30 02/13/23 07:45 49 L 16 99 02/13/23 07:30 49 L 14 109/53 99 02/13/23 07:15 51 L 13 109/53 99 02/13/23 07:00 52 L 13 109/53 100 02/13/23 06:45 45 L 16 100 02/13/23 06:30 50 L 13 109/53 100 02/13/23 06:15 49 L 13 109/53 100 02/13/23 06:00 50 L 14 109/53 100 02/13/23 05:45 51 L 16 109/53 100 02/13/23 05:30 51 L 16 109/53 100 02/13/23 05:15 52 L 12 109/53 100 02/13/23 05:00 53 L 13 109/53 100 02/13/23 04:45 54 L 16 109/53 100 02/13/23 04:38 50 02/13/23 04:30 46 L 16 109/53 100 02/13/23 04:15 49 L 15 109/53 100 02/13/23 04:00 96 F L 48 L 16 103/54 100 50 02/13/23 03:45 50 L 16 103/54 100 02/13/23 03:40 50 02/13/23 03:30 49 L 16 103/54 100 02/13/23 03:15 54 L 15 103/54 100 02/13/23 03:00 50 L 16 103/54 100 02/13/23 02:45 44 L 16 103/54 100 02/13/23 02:30 48 L 16 100 02/13/23 02:18 49 L 15 100 02/13/23 02:00 52 L 15 100 02/13/23 01:45 49 L 15 100 02/13/23 01:30 52 L 15 100 02/13/23 01:15 46 L 13 103/54 100 02/13/23 01:00 44 L 16 103/54 100 02/13/23 00:45 48 L 14 103/54 100 02/13/23 00:30 55 L 16 103/54 100 02/13/23 00:23 50 02/13/23 00:15 52 L 14 103/54 100 02/13/23 00:00 96.8 F L 50 L 16 106/54 100 50 02/12/23 23:45 49 L 14 106/54 100 02/12/23 23:40 51 L 16 106/54 100 02/12/23 23:30 51 L 15 106/54 100 02/12/23 23:15 49 L 16 106/54 100 02/12/23 23:00 53 L 15 106/54 100 02/12/23 22:45 51 L 15 106/54 100 02/12/23 22:30 43 L 15 106/54 100 02/12/23 22:15 48 L 13 106/54 100 02/12/23 22:00 48 L 16 106/54 98 02/12/23 21:45 46 L 15 106/54 100 02/12/23 21:38 50 02/12/23 21:30 46 L 16 106/54 100 02/12/23 21:15 49 L 14 106/54 99 02/12/23 21:00 47 L 16 100 02/12/23 20:45 49 L 16 106/54 99 02/12/23 20:30 48 L 16 106/54 100 02/12/23 20:15 43 L 13 106/54 100 02/12/23 20:00 97.2 F L 53 L 14 100/56 100 50 02/12/23 19:45 55 L 16 100/56 100 02/12/23 19:30 48 L 16 100 02/12/23 19:15 48 L 16 100 02/12/23 19:00 55 L 16 98 50 02/12/23 18:45 50 L 16 100 02/12/23 18:30 48 L 16 100 02/12/23 18:15 49 L 16 100 02/12/23 18:00 50 L 16 100 50 02/12/23 17:45 52 L 16 100 02/12/23 17:30 46 L 16 100 02/12/23 17:15 53 L 16 92 L 02/12/23 17:00 49 L 16 92 L 50 02/12/23 16:45 53 L 16 94 L 02/12/23 16:34 50 02/12/23 16:30 53 L 19 93 L 02/12/23 16:15 51 L 16 100/56 100 02/12/23 16:00 96.7 F L 54 L 83 16 98 50 02/12/23 15:45 53 L 92 L 02/12/23 15:30 56 L 93 L 02/12/23 15:15 60 02/12/23 15:00 60 16 100 50 02/12/23 14:45 56 L 02/12/23 14:30 57 L 02/12/23 14:15 56 L 67/37 02/12/23 14:00 56 L 16 100 100 02/12/23 13:45 54 L 89/46 02/12/23 13:30 54 L 70/41 02/12/23 13:15 56 L 16 81/54 02/12/23 13:00 61 13 84/54 100 100 02/12/23 12:58 50 02/12/23 12:45 68 13 83/55 02/12/23 12:32 98.3 F 85 14 82/56 100 100 02/12/23 12:20 100 02/12/23 12:15 100 Intake and Output 02/12/23 02/13/23 02/13/23 22:59 06:59 14:59 Intake Total 2353.215 1332.865 955.763 Output Total 370 240 135 Balance 5332.385 1772.865 820.763 Intake: IV 2200 1200 750 Sodium Chloride 0.9% 1, 1200 1200 750 000 ml @ 150 mls/hr IV . Q6H40M [facility] Rx#:[id number] Sodium Chloride 0.9% 1, 1000 000 ml @ 999 mls/hr IV . Q1H1M [facility] Rx#:[id number] Intake, IV Titration 153.215 132.865 205.763 Amount Piperacillin-Tazobactam 3 100 .375 gm In Sodium Chloride 0.9% 100 ml @ 25 mls/hr IVPB Q8HR [facility] Rx# :[id number] propofoL 1,000 mg In 153.215 132.865 105.763 Empty Bag 1 bag @ 15 MCG/ KG/MIN 6.736 mls/hr IV . [id number] [facility] Rx#:[id number] Output: Urine 370 240 135 Other: Voiding Method Indwelling Catheter Indwelling Catheter Indwelling Catheter Weight 79.4 kg ABP, PAP, CO, CI - Last 8 Hours Arterial Blood Pressure 121/46 Arterial Blood Pressure 110/41 Arterial Blood Pressure 147/30 Arterial Blood Pressure 111/37 Arterial Blood Pressure 136/44 Arterial Blood Pressure 117/46 Arterial Blood Pressure 60/25 Arterial Blood Pressure 122/43 Arterial Blood Pressure 142/38 Arterial Blood Pressure 112/45 Arterial Blood Pressure 120/49 Arterial Blood Pressure 158/41 Arterial Blood Pressure 123/47 Arterial Blood Pressure 121/50 Arterial Blood Pressure 115/47 Arterial Blood Pressure 108/38 Arterial Blood Pressure 117/47 Arterial Blood Pressure 124/48 Arterial Blood Pressure 89/42 Arterial Blood Pressure 132/41 Arterial Blood Pressure 113/44 Arterial Blood Pressure 113/44 Arterial Blood Pressure 123/51 Arterial Blood Pressure 129/54 Arterial Blood Pressure 141/59 Arterial Blood Pressure 126/56 Arterial Blood Pressure 155/54 Arterial Blood Pressure 129/53 Arterial Blood Pressure 145/72 Arterial Blood Pressure 130/54 Arterial Blood Pressure 133/55 GENERAL: The patient is lying in bed and is not in acute distress. CHEST: The heart rate is regular rate rhythm. No murmurs to auscultation. LUNG: Clear to auscultation bilaterally no wheezing noted throughout. Not labored breathing. ABDOMEN/GI: Bowel sounds present in all 4 quadrants. No tenderness to palpation throughout. NEUROLOGICAL: Higher mental function: Comatose GCS 7 (E1, VT1, M5). Patient is not verbally responding or following commands. Cranial nerves: I had to manually open the eyes and are midline. Pupils are round, equal and reactive to light. +ve corneal and gag/cough reflex. Is breathing over the vent. No facial weakness. T Motor: The strength is limited but to suctioning he withdrawal of all extremitie s. Normal tone and bulk. Cerebellum: Unable to assess. Sensation: Unable to assess. Reflexes (right/left): 1+ Plantars are mute bilaterally. Results - Laboratory Findings CBC and BMP: 02/13/23 04:48 02/13/23 04:48 Abnormal Lab Findings: Abnormal Labs 01/31/23 01/31/23 01/31/23 14:56 14:56 14:56 WBC RBC 2.68 L Hgb 9.4 L Hct 27.9 L MCV 103.9 H MCH RDW 16.0 H Plt Count 61 L Neutrophils # Lymphocytes # 0.6 L Lymphocytes # (Manual) Macrocytosis PT 15.7 H INR 1.6 H ABG pH ABG pCO2 ABG pO2 ABG HCO3 ABG Total CO2 ABG O2 Saturation Sodium 136 L Potassium Chloride Carbon Dioxide 19 L BUN 36 H Creatinine 1.56 H Glucose 165 H POC Glucose (mg/dL) Plasma Lactic Acid Mgaen Calcium 8.2 L Phosphorus Magnesium AST Alkaline Phosphatase Total Protein 5.7 L Albumin 2.9 L Amylase <30 L Vitamin B6 Vitamin B12 Folate Digoxin 02/01/23 02/01/23 02/01/23 05:05 05:05 16:24 WBC RBC 2.71 L Hgb 9.6 L Hct 28.6 L MCV 105.3 H MCH 35.5 H RDW 15.8 H Plt Count 59 L Neutrophils # Lymphocytes # 0.8 L Lymphocytes # (Manual) Macrocytosis PT INR ABG pH ABG pCO2 ABG pO2 ABG HCO3 ABG Total CO2 ABG O2 Saturation Sodium 136 L Potassium Chloride Carbon Dioxide BUN 34 H Creatinine 1.55 H Glucose 128 H POC Glucose (mg/dL) 135 H Plasma Lactic Acid Magen Calcium Phosphorus Magnesium AST Alkaline Phosphatase Total Protein 5.9 L Albumin 3.0 L Amylase Vitamin B6 Vitamin B12 Folate Digoxin 02/01/23 02/02/23 02/02/23 20:15 01:27 10:51 WBC 2.2 L RBC 2.75 L Hgb 9.7 L Hct 29.1 L MCV 105.9 H MCH 35.4 H RDW 15.8 H Plt Count 59 L Neutrophils # Lymphocytes # Lymphocytes # (Manual) Macrocytosis PT INR ABG pH ABG pCO2 ABG pO2 ABG HCO3 ABG Total CO2 ABG O2 Saturation Sodium Potassium Chloride Carbon Dioxide BUN Creatinine Glucose POC Glucose (mg/dL) 145 H 135 H Plasma Lactic Acid Magen Calcium Phosphorus Magnesium AST Alkaline Phosphatase Total Protein Albumin Amylase Vitamin B6 Vitamin B12 Folate Digoxin 02/02/23 02/03/23 02/03/23 10:51 08:18 08:18 WBC 2.4 L RBC 2.40 L Hgb 8.2 L D Hct 24.8 L MCV 103.3 H MCH RDW 16.6 H Plt Count 42 L Neutrophils # Lymphocytes # Lymphocytes # (Manual) 0.62 L Macrocytosis PT INR ABG pH ABG pCO2 ABG pO2 ABG HCO3 ABG Total CO2 ABG O2 Saturation Sodium Potassium Chloride 108 H 111 H Carbon Dioxide 21 L BUN 28 H Creatinine 1.45 H Glucose 101 H POC Glucose (mg/dL) Plasma Lactic Acid Magen Calcium 8.1 L Phosphorus Magnesium AST 15 L Alkaline Phosphatase Total Protein 4.9 L Albumin 2.3 L Amylase Vitamin B6 Vitamin B12 Folate Digoxin 02/03/23 02/03/23 02/04/23 13:16 17:00 08:17 WBC 3.6 L RBC 2.77 L Hgb 9.8 L D Hct 29.1 L MCV 104.7 H MCH 35.3 H RDW 15.8 H Plt Count 79 L D Neutrophils # Lymphocytes # 0.7 L Lymphocytes # (Manual) Macrocytosis PT INR ABG pH ABG pCO2 ABG pO2 ABG HCO3 ABG Total CO2 ABG O2 Saturation Sodium Potassium Chloride Carbon Dioxide BUN Creatinine Glucose POC Glucose (mg/dL) 67 L 156 H Plasma Lactic Acid Magen Calcium Phosphorus Magnesium AST Alkaline Phosphatase Total Protein Albumin Amylase Vitamin B6 Vitamin B12 Folate Digoxin 02/04/23 02/04/23 02/04/23 08:17 08:57 09:26 WBC RBC Hgb Hct MCV MCH RDW Plt Count Neutrophils # Lymphocytes # Lymphocytes # (Manual) Macrocytosis PT INR ABG pH ABG pCO2 ABG pO2 ABG HCO3 ABG Total CO2 ABG O2 Saturation Sodium Potassium Chloride 108 H Carbon Dioxide BUN Creatinine Glucose 111 H POC Glucose (mg/dL) 63 L 217 H Plasma Lactic Acid Magen Calcium Phosphorus Magnesium AST Alkaline Phosphatase Total Protein 6.0 L Albumin 2.9 L Amylase Vitamin B6 Vitamin B12 Folate Digoxin 02/04/23 02/05/23 02/05/23 12:57 07:20 07:20 WBC RBC 2.41 L Hgb 8.4 L Hct 24.5 L MCV 101.7 H MCH 35.1 H RDW 17.0 H Plt Count 64 L Neutrophils # Lymphocytes # Lymphocytes # (Manual) Macrocytosis PT INR ABG pH ABG pCO2 ABG pO2 ABG HCO3 ABG Total CO2 ABG O2 Saturation Sodium Potassium Chloride 111 H Carbon Dioxide BUN Creatinine Glucose 133 H POC Glucose (mg/dL) 163 H Plasma Lactic Acid Magen Calcium 7.8 L Phosphorus Magnesium AST Alkaline Phosphatase Total Protein 4.9 L Albumin 2.2 L Amylase Vitamin B6 Vitamin B12 Folate Digoxin 02/05/23 02/06/23 02/06/23 09:35 08:50 08:50 WBC RBC 2.61 L Hgb 9.0 L Hct 26.5 L MCV 101.6 H MCH RDW 17.6 H Plt Count 79 L Neutrophils # Lymphocytes # 0.5 L Lymphocytes # (Manual) Macrocytosis PT INR ABG pH ABG pCO2 ABG pO2 ABG HCO3 ABG Total CO2 ABG O2 Saturation Sodium Potassium Chloride 112 H Carbon Dioxide BUN 7 L Creatinine Glucose 103 H POC Glucose (mg/dL) 120 H Plasma Lactic Acid Magen Calcium 7.9 L Phosphorus Magnesium AST 16 L Alkaline Phosphatase Total Protein 5.1 L Albumin 2.3 L Amylase Vitamin B6 Vitamin B12 Folate Digoxin 02/06/23 02/06/23 02/07/23 08:50 23:16 08:12 WBC RBC Hgb Hct MCV MCH RDW Plt Count Neutrophils # Lymphocytes # Lymphocytes # (Manual) Macrocytosis PT INR ABG pH ABG pCO2 ABG pO2 ABG HCO3 ABG Total CO2 ABG O2 Saturation Sodium Potassium Chloride Carbon Dioxide BUN Creatinine Glucose POC Glucose (mg/dL) 111 H 121 H Plasma Lactic Acid Magen Calcium Phosphorus 2.1 L Magnesium 1.4 L AST Alkaline Phosphatase Total Protein Albumin Amylase Vitamin B6 Vitamin B12 Folate Digoxin 02/07/23 02/07/23 02/07/23 08:38 08:38 16:32 WBC RBC 2.36 L Hgb 8.4 L Hct 24.4 L MCV 103.1 H MCH 35.4 H RDW 17.4 H Plt Count 87 L Neutrophils # Lymphocytes # Lymphocytes # (Manual) Macrocytosis PT INR ABG pH ABG pCO2 ABG pO2 ABG HCO3 ABG Total CO2 ABG O2 Saturation Sodium Potassium Chloride 109 H Carbon Dioxide BUN 8 L Creatinine Glucose 119 H POC Glucose (mg/dL) 124 H Plasma Lactic Acid Magen Calcium 7.9 L Phosphorus 2.2 L Magnesium 1.5 L AST Alkaline Phosphatase Total Protein 5.0 L Albumin 2.2 L Amylase Vitamin B6 Vitamin B12 Folate Digoxin 02/08/23 02/08/23 02/08/23 06:03 07:32 07:32 WBC RBC Hgb Hct MCV MCH RDW Plt Count Neutrophils # Lymphocytes # Lymphocytes # (Manual) Macrocytosis PT INR ABG pH ABG pCO2 ABG pO2 ABG HCO3 ABG Total CO2 ABG O2 Saturation Sodium Potassium 3.3 L Chloride 109 H Carbon Dioxide BUN 6 L Creatinine Glucose 133 H POC Glucose (mg/dL) 130 H Plasma Lactic Acid Magen Calcium 8.2 L Phosphorus Magnesium AST Alkaline Phosphatase Total Protein Albumin Amylase Vitamin B6 Vitamin B12 >3600.0 H Folate Digoxin 02/08/23 02/08/23 02/08/23 07:32 07:53 09:39 WBC RBC Hgb Hct MCV MCH RDW Plt Count Neutrophils # Lymphocytes # Lymphocytes # (Manual) Macrocytosis PT INR ABG pH ABG pCO2 ABG pO2 ABG HCO3 ABG Total CO2 ABG O2 Saturation Sodium Potassium Chloride Carbon Dioxide BUN Creatinine Glucose POC Glucose (mg/dL) 173 H Plasma Lactic Acid Magen Calcium Phosphorus Magnesium AST Alkaline Phosphatase Total Protein Albumin Amylase Vitamin B6 4 L Vitamin B12 Folate 34.10 H Digoxin 02/08/23 02/08/23 02/08/23 09:39 11:49 16:42 WBC RBC 2.41 L Hgb 8.7 L Hct 24.9 L MCV 102.9 H MCH 36.0 H RDW 17.5 H Plt Count 101 L Neutrophils # Lymphocytes # 0.8 L Lymphocytes # (Manual) Macrocytosis PT INR ABG pH ABG pCO2 ABG pO2 ABG HCO3 ABG Total CO2 ABG O2 Saturation Sodium Potassium Chloride Carbon Dioxide BUN Creatinine Glucose POC Glucose (mg/dL) 155 H 166 H Plasma Lactic Acid Magen Calcium Phosphorus Magnesium AST Alkaline Phosphatase Total Protein Albumin Amylase Vitamin B6 Vitamin B12 Folate Digoxin 02/09/23 02/10/23 02/10/23 11:16 09:17 09:17 WBC RBC 2.78 L Hgb 9.7 L Hct 29.2 L MCV 104.8 H MCH RDW 17.8 H Plt Count Neutrophils # Lymphocytes # Lymphocytes # (Manual) Macrocytosis PT INR ABG pH ABG pCO2 ABG pO2 ABG HCO3 ABG Total CO2 ABG O2 Saturation Sodium Potassium Chloride 111 H 110 H Carbon Dioxide BUN 7 L 8 L Creatinine Glucose POC Glucose (mg/dL) Plasma Lactic Acid Magen Calcium 8.2 L 8.3 L Phosphorus Magnesium AST Alkaline Phosphatase Total Protein Albumin Amylase Vitamin B6 Vitamin B12 Folate Digoxin 02/10/23 02/11/23 02/11/23 16:32 16:39 20:20 WBC RBC Hgb Hct MCV MCH RDW Plt Count Neutrophils # Lymphocytes # Lymphocytes # (Manual) Macrocytosis PT INR ABG pH ABG pCO2 ABG pO2 ABG HCO3 ABG Total CO2 ABG O2 Saturation Sodium Potassium Chloride Carbon Dioxide BUN Creatinine Glucose POC Glucose (mg/dL) 136 H 142 H 147 H Plasma Lactic Acid Magen Calcium Phosphorus Magnesium AST Alkaline Phosphatase Total Protein Albumin Amylase Vitamin B6 Vitamin B12 Folate Digoxin 02/12/23 02/12/23 02/12/23 07:56 11:33 12:34 WBC RBC Hgb Hct MCV MCH RDW Plt Count Neutrophils # Lymphocytes # Lymphocytes # (Manual) Macrocytosis PT INR ABG pH ABG pCO2 ABG pO2 ABG HCO3 ABG Total CO2 ABG O2 Saturation Sodium Potassium Chloride 114 H Carbon Dioxide 19 L BUN Creatinine Glucose 108 H POC Glucose (mg/dL) 115 H 186 H Plasma Lactic Acid Magen Calcium 8.2 L Phosphorus Magnesium AST Alkaline Phosphatase Total Protein Albumin Amylase Vitamin B6 Vitamin B12 Folate Digoxin 02/12/23 02/12/23 02/12/23 12:53 14:20 14:20 WBC 15.8 H RBC 2.23 L Hgb 7.9 L D Hct 23.9 L MCV 107.2 H MCH 35.3 H RDW 18.3 H Plt Count Neutrophils # 14.5 H Lymphocytes # 0.6 L Lymphocytes # (Manual) Macrocytosis Marked A PT INR ABG pH 7.22 L ABG pCO2 30 L ABG pO2 >400 H ABG HCO3 12 L ABG Total CO2 13 L ABG O2 Saturation 100.0 H Sodium Potassium Chloride Carbon Dioxide BUN Creatinine Glucose POC Glucose (mg/dL) Plasma Lactic Acid Magen Calcium Phosphorus Magnesium AST Alkaline Phosphatase Total Protein Albumin Amylase Vitamin B6 Vitamin B12 Folate Digoxin 3.1 H* 02/12/23 02/12/23 02/13/23 14:20 14:24 04:48 WBC RBC 2.42 L Hgb 8.6 L Hct 25.9 L MCV 107.1 H MCH 35.7 H RDW 18.6 H Plt Count Neutrophils # Lymphocytes # Lymphocytes # (Manual) Macrocytosis Marked A PT INR ABG pH ABG pCO2 ABG pO2 ABG HCO3 ABG Total CO2 ABG O2 Saturation Sodium Potassium Chloride 114 H Carbon Dioxide 18 L BUN Creatinine Glucose 184 H POC Glucose (mg/dL) Plasma Lactic Acid Magen 5.7 H* Calcium 8.0 L Phosphorus Magnesium AST Alkaline Phosphatase 140 H Total Protein 4.2 L Albumin 1.8 L Amylase Vitamin B6 Vitamin B12 Folate Digoxin 02/13/23 02/13/23 04:48 06:01 WBC RBC Hgb Hct MCV MCH RDW Plt Count Neutrophils # Lymphocytes # Lymphocytes # (Manual) Macrocytosis PT INR ABG pH ABG pCO2 ABG pO2 215 H ABG HCO3 ABG Total CO2 ABG O2 Saturation 99.0 H Sodium Potassium Chloride 117 H Carbon Dioxide 20 L BUN Creatinine 1.31 H Glucose 105 H POC Glucose (mg/dL) Plasma Lactic Acid Magen Calcium 7.8 L Phosphorus Magnesium AST Alkaline Phosphatase 142 H Total Protein 4.7 L Albumin 1.9 L Amylase Vitamin B6 Vitamin B12 Folate Digoxin Assessment and Plan Assessment: Cardaic arrest in our facility. Prolonged arrest of 36minutes. Had V-fib then subsequently sinus bradycrdia. 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 Therapeutic is 0.8-2.0) Acute respiratory failure hypoxia due to cardiac arrest and the patient is intubated on mechanical ventilation B6 deficiency History of coronary artery disease status post stent History of chronic atrial fibrillation with previous unsuccessful cardioversion Ischemic cardiomyopathy with ejection fraction of 30-35% and is not a good candidate for AICD placement due to underlying malignancy History of pancreatic cancer that is recent History of obstructive jaundice due to pancreatic tumor with previous biliary sending Peripheral vascular disease [place] to thrive Type 2 diabetes Plan: I ordered a CT of the head stat as well as EEG. Cardiology is on board. Per the nurse cardiology is aware of the digoxin toxicity. Patient is on prior docs seen 50 mg twice a day. We'll defer the rest of the medical management to the primary IC team and other specialists Condition is very guarded The plan is discussed with ICU attending and nurse. Thank you for the consultation Time with Patient: Greater than 30
[2023-02-13] MEDS: IPRATROPIUM-ALBUTEROL 3 ML NEB INHALATION SCH ×3 (12:20→20:55)
[2023-02-13 12:26] LABS: Glucose,Whole Blood 91 mg/dL (70-110)
--- NOTE | 2023-02-13 12:49 | EEG ---
ELECTROENCEPHALOGRAM REPORT CLINICAL HISTORY: This is a 68-year-old gentleman, who had a cardiac arrest in our facility, who continues to have altered mental status. The video EEG is obtained to evaluate for seizure epileptiform activity. RELEVANT MEDICATION: IV propofol. EEG TYPE: A routine 21-channel EEG is performed with video using the 10/20 electrode placement system. DESCRIPTION: The patient is intubated on a ventilator. The background consists of [id number] voltage of 6.5 to 7.5 hertz activity that is poorly modulated. There is no physiological sleep architecture. There is no focal slowing. Interictal and ictal is none. ACTIVATION PROCEDURE: Photic stimulation did not evoke a posterior driving response. There is no abnormality during the photic stimulation. Hyperventilation is not performed. CLINICAL INTERPRETATION: This is an abnormal routine EEG. The background slowing is suggestive of mild encephalopathy. Otherwise, there is no focal slowing, epileptiform discharge, or seizure on the EEG. Clinical correlation is recommended. ESTEVAN / CARLITON: [id number] /
--- NOTE | 2023-02-13 13:54 | P.PN ---
Subjective Progress Note Date: 02/13/23 Principal diagnosis: Cardiac arrest with acute hypoxic respiratory failure 68-year-old male patient with an extensive cardiac disease, coronary artery disease, chronic atrial fibrillation and severe ischemic cardiomyopathy in addition to a recent diagnosis of a pancreatic cancer. The patient was has less for A. fib RVR. Earlier this morning, the patient went into cardiac arrest. DRAGAN GARCIA was called at 1131. The patient was immediately resuscitated based on the ACLS protocol. Initial rhythm was ventricular fibrillation with no pulse. Total code time was approximately 36 minutes. Throughout the code, patient had received 6 shocks, initial joules were 150, then escalated to 200 J. Patient received a 300 mg amiodarone bolus, then proceeded 150 mg amiodarone bolus. Patient received multiple pushes of epinephrine. Patient also received 2 g of magnesium sulfate, 1 g of calcium chloride. Patient had return of spontaneous circulation for the first time at 1152, was noted to be in junctional bradycardia and received one push of atropine 1156, loss pulse again and went into V. fib 1157 with CPR resumed. Patient was shocked again for the 6 time at 1158, received 1 g calcium. He again had return of spontaneous circulation 1159 with a pulse, rhythm was junctional rhythm with a heart rate of 57. Patient's blood pressure was cycled and noted to be 172/118. 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 After discussion with senior electrical project manager, patient was transferred to the intensive care unit for further monitoring. Patient's family was notified by nursing. Patient's attending was also present throughout the code, and signout was given to him upon transfer to the intensive care unit. At this point in time, the patient is intubated on a mechanical ventilator. He is on a propofol running at 40 microvascular kilogram per minutes. Is on assist-control mode of mechanical ventilation at the rate of 16, tidal volume of 400, FiO2 wasn't 100% with PEEP of 5. The initial blood gas showed a pH of 7.22 with a pCO2 of 30 and pO2 more than 400. FiO2 is being weaned. Chest x-ray showed ET tube being in a good location. The patient has a port over the right anterior chest. There is increased opacity around the right perihilar area. The patient currently is hypotensive. The patient is receiving a bolus of nor mal saline 1 L. Blood work is still pending for now. The blood work from yesterday was noted and the patient has a WBC count 9.6 with a hemoglobin of 9.7. Electrolytes are all within normal limits. Normal renal function. His most recent cardiac rhythm is sinus bradycardia with first-degree AV block. The patient was started on amiodarone per cardiology recommendation currently running at 1 mg/m. He is on anticoagulation with Eliquis 5 mg by mouth twice a day. He is also supposed to be on metoprolol which is currently on hold. The patient had a triple-lumen catheter and arterial line catheter inserted in the ICU. He looks very marked emaciated and cachectic Reevaluated today on02/13/2023, patient remains in the ICU intubated and mechanically ventilated. He is on assist control rate of 16 volume 400 FiO2 50% PEEP of 5 ABG showed a pO2 of 215 pCO2 35 pH of 7.38 patient is on propofol at 45 mcg/kg/m, he is also on IV fluid 0.9 normal saline at 1 50 mL per hour. Patient is on Zosyn empirically, neurology consultation is pending, patient had a cardiac arrest and his down time was 36 minutes. Not to mention the patient has underlying metastatic pancreatic carcinoma. His FiO2 was cut down to 40% after reviewing his ABG. Chest x-ray showed, minimal right lower lobe opacity could be atelectasis or could be aspiration pneumonia in nature. WBC count today is 10.4 hemoglobin is 8.6 electrode start normal however his creatinine is 1.31, baseline creatinine prior to the cardiac arrest was 0.890. Patient remains on eliquis, he is also on Zosyn. And his IV fluid is 0.9 normal saline at 1 50 mL per hour. Patient is receiving Protonix for GI prophylaxis. And he will be started on enteral feeding today. Luckily the patient is hemodynamically stable, not requiring any pressors at this point. Nonetheless he is critically ill. And I have advised holding propofol and assess mental status today. Seen by neurology on consultation, CT of the head and EEG are pending. Looking back at his digitoxin level was noted to be elevated 3.1, and that is being addressed by cardiology. Objective - Vital Signs Vital signs: Vital Signs Temp 98.2 F 02/13/23 12:00 Pulse 51 L 02/13/23 13:00 Resp 14 02/13/23 13:00 BP 101/52 02/13/23 12:45 Pulse Ox 100 02/13/23 13:00 FiO2 40 02/13/23 13:00 Intake & Output 02/12/23 02/13/23 02/13/23 18:59 06:59 18:59 Intake Total 5627.178 2653.000 1288.543 Output Total 260 350 190 Balance 0929.630 6117.000 1098.543 Weight 79.4 kg 79.4 kg Intake: IV 1800 1800 1050 Sodium Chloride 0.9% 1, 800 1800 1050 000 ml @ 150 mls/hr IV . Q6H40M [facility] Rx#:[id number] Sodium Chloride 0.9% 1, 1000 000 ml @ 999 mls/hr IV . Q1H1M [facility] Rx#:[id number] Intake, IV Titration 149.444 200.000 238.543 Amount Amiodarone 360 mg In 49.444 Dextrose 5% in Water 200 ml @ 1 MG/MIN 33.333 mls/ hr IV .Q6H [facility] Rx#: [id number] Piperacillin-Tazobactam 3 100 .375 gm In Sodium Chloride 0.9% 100 ml @ 25 mls/hr IVPB Q8HR [facility] Rx# :[id number] propofoL 1,000 mg In 100.000 200.000 138.543 Empty Bag 1 bag @ 15 MCG/ KG/MIN 6.736 mls/hr IV . [id number] [facility] Rx#:[id number] Output: Urine 260 350 190 Stool 0 Other: Voiding Method Indwelling Catheter Indwelling Catheter Indwelling Catheter # Voids 1 ABP, PAP, CO, CI - Last Documented Arterial Blood Pressure 106/45 - Exam Physical Exam: Revealed a 68-year-old white male in no distress, intubated mechanically ventilated. Sedated on propofol. Head: Atraumatic normocephalic. HEENT:[Neck is supple.] [No neck masses.] [No thyromegaly.] [No JVD.] Pupils seem to be pinpoint. Bilaterally. Chest: [Clear throughout, no crackles, no rhonchi, no wheezes.] Cardiac Exam: [Irregular irregular rhythm. Normal S1 and S2, no S3 gallop, 2/6 systolic ejection murmur throughout the precordium. Abdomen: [Soft, nontender, no megaly, no rebound, no guarding, normal bowel sounds.] Extremities: [No clubbing, no edema, no cyanosis.] Neurological Exam: Cannot assess, patient is sedated, on propofol. Psychiatric: Could not assess. Patient is on propofol. Skin: No rashes - Labs CBC & Chem 7: 02/13/23 04:48 02/13/23 04:48 Labs: Abnormal Lab Results - Last 24 Hours (Table) 02/12/23 02/12/23 02/12/23 Range/Units 14:20 14:20 14:20 WBC 15.8 H (3.8-10.6) k/uL RBC 2.23 L (4.30-5.90) m/uL Hgb 7.9 L D (13.0-17.5) gm/dL Hct 23.9 L (39.0-53.0) % MCV 107.2 H (80.0-100.0) fL MCH 35.3 H (25.0-35.0) pg RDW 18.3 H (11.5-15.5) % Neutrophils # 14.5 H (1.3-7.7) k/uL Lymphocytes # 0.6 L (1.0-4.8) k/uL Macrocytosis Marked A ABG pO2 (83-108) mmHg ABG O2 Saturation (94-97) % Chloride (98-107) mmol/L Carbon Dioxide (22-30) mmol/L Creatinine (0.66-1.25) mg/dL Glucose (74-99) mg/dL Plasma Lactic Acid Magen 5.7 H* (0.7-2.0) mmol/L Calcium (8.4-10.2) mg/dL Alkaline Phosphatase (38-126) U/L Total Protein (6.3-8.2) g/dL Albumin (3.5-5.0) g/dL Digoxin 3.1 H* ng/mL 02/12/23 02/13/23 02/13/23 Range/Units 14:24 04:48 04:48 WBC (3.8-10.6) k/uL RBC 2.42 L (4.30-5.90) m/uL Hgb 8.6 L (13.0-17.5) gm/dL Hct 25.9 L (39.0-53.0) % MCV 107.1 H (80.0-100.0) fL MCH 35.7 H (25.0-35.0) pg RDW 18.6 H (11.5-15.5) % Neutrophils # (1.3-7.7) k/uL Lymphocytes # (1.0-4.8) k/uL Macrocytosis Marked A ABG pO2 (83-108) mmHg ABG O2 Saturation (94-97) % Chloride 114 H 117 H (98-107) mmol/L Carbon Dioxide 18 L 20 L (22-30) mmol/L Creatinine 1.31 H (0.66-1.25) mg/dL Glucose 184 H 105 H (74-99) mg/dL Plasma Lactic Acid Magen (0.7-2.0) mmol/L Calcium 8.0 L 7.8 L (8.4-10.2) mg/dL Alkaline Phosphatase 140 H 142 H (38-126) U/L Total Protein 4.2 L 4.7 L (6.3-8.2) g/dL Albumin 1.8 L 1.9 L (3.5-5.0) g/dL Digoxin ng/mL 02/13/23 Range/Units 06:01 WBC (3.8-10.6) k/uL RBC (4.30-5.90) m/uL Hgb (13.0-17.5) gm/dL Hct (39.0-53.0) % MCV (80.0-100.0) fL MCH (25.0-35.0) pg RDW (11.5-15.5) % Neutrophils # (1.3-7.7) k/uL Lymphocytes # (1.0-4.8) k/uL Macrocytosis ABG pO2 215 H (83-108) mmHg ABG O2 Saturation 99.0 H (94-97) % Chloride (98-107) mmol/L Carbon Dioxide (22-30) mmol/L Creatinine (0.66-1.25) mg/dL Glucose (74-99) mg/dL Plasma Lactic Acid Magen (0.7-2.0) mmol/L Calcium (8.4-10.2) mg/dL Alkaline Phosphatase (38-126) U/L Total Protein (6.3-8.2) g/dL Albumin (3.5-5.0) g/dL Digoxin ng/mL Microbiology - Last 24 Hours (Table) 02/12/23 21:43 Sputum Culture - Preliminary Sputum Assessment and Plan Assessment: Impression: Acute hypoxic respiratory failure secondary to cardiac arrest with recurrent ventricular fibrillation and tachycardia requiring CPR, down time was about 36 minutes. Possible anoxic brain injury possible right lower lobe aspiration pneumonia Severe ischemic cardiomyopathy and LV dysfunction Underlying coronary artery disease and previous stenting of RCA in 1996 Pancreatic cancer Severe weight loss secondary to pancreatic malignancy Chronic anemia Chronic atrial fibrillation, previous unsuccessful cardioversions History of obstructive jaundice secondary to pancreatic cancer and requiring biliary stenting Benign essential hypertension Severe cachexia/protein calorie malnutrition secondary to pancreatic malignancy Failure to thrive secondary to pancreatic cancer Peripheral vessel occlusive disease Type 2 diabetes without complications Acute digoxin toxicity, being addressed by cardiology Recommendation: Continue ventilatory support, no changes in the vent settings except cut down her FiO2 to 40% Continue fluids at 1 50 mL per hour Continue empiric Zosyn for possible aspiration pneumonia Assessment of status today off propofol if possible Continue GI and DVT prophylaxis Cardiology to see regarding his cardiac arrest and cardiac arrhythmia Nutritional support/enteral feeding to be started Recheck digoxin level. Updated his on his condition at bedside. Prognosis is relatively poor and guarded. We'll continue to follow. Critical care time is over 30 minutes. Time with Patient: Greater than 30
--- NOTE | 2023-02-13 15:15 | CT ---
EXAMINATION TYPE: CT brain wo con CT DLP: 1182.4 mGycm, Automated exposure control for dose reduction was used. DATE OF EXAM: 02/13/2023 2:56 PM COMPARISON: 02/07/2023. CLINICAL INDICATION:Male, 68 years old with history of altered mental status. Cardiac arrest, AMS TECHNIQUE: Brain: Axial CT images of the brain were obtained with coronal and sagittal reformats created and rev iewed. Contrast used: None. Oral contrast used: None. FINDINGS: Brain: Extra-axial spaces: No abnormal extra-axial fluid collections. Ventricular system: Within normal limits Cerebral parenchyma: No acute intraparenchymal hemorrhage or mass effect. The pyle-white junction is well differentiated. Cerebellum: Unremarkable. Mass effect: No evidence of midline shift. Intracranial vasculature: unremarkable Soft tissues: Normal. Calvarium/osseous structures: No depressed skull fracture. Paranasal sinuses and mastoid air cells: Mild scattered paranasal sinus disease. Visualized orbits: Right aphakia. IMPRESSION: No acute intracranial process.
--- NOTE | 2023-02-13 16:14 | P.PN ---
Subjective Progress Note Date: 02/13/23 In f/u today patient is sedated and mechanically ventilated for cardiac arrest. Patient does have movement when spoken to, he moves away when having his eyes opened Objective - Vital Signs Vital signs: Vital Signs Temp 96 F L 02/13/23 04:00 Pulse 52 L 02/13/23 07:00 Resp 13 02/13/23 07:00 BP 109/53 02/13/23 07:00 Pulse Ox 100 02/13/23 07:00 FiO2 50 02/13/23 08:35 Intake & Output 02/12/23 02/13/23 02/13/23 18:59 06:59 18:59 Intake Total 3730.461 7065.000 255.763 Output Total 260 350 30 Balance 8566.301 1032.000 225.763 Weight 79.4 kg Intake: IV 1800 1800 150 Sodium Chloride 0.9% 1, 800 1800 150 000 ml @ 150 mls/hr IV . Q6H40M [facility] Rx#:[id number] Sodium Chloride 0.9% 1, 1000 000 ml @ 999 mls/hr IV . Q1H1M [facility] Rx#:[id number] Intake, IV Titration 149.444 200.000 105.763 Amount Amiodarone 360 mg In 49.444 Dextrose 5% in Water 200 ml @ 1 MG/MIN 33.333 mls/ hr IV .Q6H [facility] Rx#: [id number] propofoL 1,000 mg In 100.000 200.000 105.763 Empty Bag 1 bag @ 15 MCG/ KG/MIN 6.736 mls/hr IV . [id number] [facility] Rx#:[id number] Output: Urine 260 350 30 Stool 0 Other: Voiding Method Indwelling Catheter Indwelling Catheter # Voids 1 ABP, PAP, CO, CI - Last Documented Arterial Blood Pressure 117/47 - Constitutional General appearance: Present: average body habitus, no acute distress - EENT Eyes: Present: anicteric sclerae - Respiratory Respiratory: bilateral: CTA - Cardiovascular Rhythm: irregularly irregular Abnormal Heart Sounds: Absent: systolic murmur, diastolic murmur, rub, S3 Gallop, S4 Gallop, click, other - Peripheral edema leg Peripheral Edema: bilateral: Trace - Gastrointestinal General gastrointestinal: Present: normal bowel sounds, soft - Neurologic Neurologic: Absent: CNII-XII intact, focal deficits - Musculoskeletal Musculoskeletal: Absent: gait normal, generalized weakness, strength equal bilaterally, right sided weakness, left sided weakness - Psychiatric Psychiatric: Absent: A&O x's 3, appropriate affect, intact judgment & insight - Labs CBC & Chem 7: 02/13/23 04:48 02/13/23 04:48 Labs: Abnormal Lab Results - Last 24 Hours (Table) 02/12/23 02/12/23 02/12/23 Range/Units 11:33 12:34 12:53 WBC (3.8-10.6) k/uL RBC (4.30-5.90) m/uL Hgb (13.0-17.5) gm/dL Hct (39.0-53.0) % MCV (80.0-100.0) fL MCH (25.0-35.0) pg RDW (11.5-15.5) % Neutrophils # (1.3-7.7) k/uL Lymphocytes # (1.0-4.8) k/uL Macrocytosis ABG pH 7.22 L (7.35-7.45) ABG pCO2 30 L (35-45) mmHg ABG pO2 >400 H (83-108) mmHg ABG HCO3 12 L (21-25) mmol/L ABG Total CO2 13 L (19-24) mmol/L ABG O2 Saturation 100.0 H (94-97) % Chloride (98-107) mmol/L Carbon Dioxide (22-30) mmol/L Creatinine (0.66-1.25) mg/dL Glucose (74-99) mg/dL POC Glucose (mg/dL) 115 H 186 H (70-110) mg/dL Plasma Lactic Acid Magen (0.7-2.0) mmol/L Calcium (8.4-10.2) mg/dL Alkaline Phosphatase (38-126) U/L Total Protein (6.3-8.2) g/dL Albumin (3.5-5.0) g/dL Digoxin ng/mL 02/12/23 02/12/23 02/12/23 Range/Units 14:20 14:20 14:20 WBC 15.8 H (3.8-10.6) k/uL RBC 2.23 L (4.30-5.90) m/uL Hgb 7.9 L D (13.0-17.5) gm/dL Hct 23.9 L (39.0-53.0) % MCV 107.2 H (80.0-100.0) fL MCH 35.3 H (25.0-35.0) pg RDW 18.3 H (11.5-15.5) % Neutrophils # 14.5 H (1.3-7.7) k/uL Lymphocytes # 0.6 L (1.0-4.8) k/uL Macrocytosis Marked A ABG pH (7.35-7.45) ABG pCO2 (35-45) mmHg ABG pO2 (83-108) mmHg ABG HCO3 (21-25) mmol/L ABG Total CO2 (19-24) mmol/L ABG O2 Saturation (94-97) % Chloride (98-107) mmol/L Carbon Dioxide (22-30) mmol/L Creatinine (0.66-1.25) mg/dL Glucose (74-99) mg/dL POC Glucose (mg/dL) (70-110) mg/dL Plasma Lactic Acid Magen 5.7 H* (0.7-2.0) mmol/L Calcium (8.4-10.2) mg/dL Alkaline Phosphatase (38-126) U/L Total Protein (6.3-8.2) g/dL Albumin (3.5-5.0) g/dL Digoxin 3.1 H* ng/mL 02/12/23 02/13/23 02/13/23 Range/Units 14:24 04:48 04:48 WBC (3.8-10.6) k/uL RBC 2.42 L (4.30-5.90) m/uL Hgb 8.6 L (13.0-17.5) gm/dL Hct 25.9 L (39.0-53.0) % MCV 107.1 H (80.0-100.0) fL MCH 35.7 H (25.0-35.0) pg RDW 18.6 H (11.5-15.5) % Neutrophils # (1.3-7.7) k/uL Lymphocytes # (1.0-4.8) k/uL Macrocytosis Marked A ABG pH (7.35-7.45) ABG pCO2 (35-45) mmHg ABG pO2 (83-108) mmHg ABG HCO3 (21-25) mmol/L ABG Total CO2 (19-24) mmol/L ABG O2 Saturation (94-97) % Chloride 114 H 117 H (98-107) mmol/L Carbon Dioxide 18 L 20 L (22-30) mmol/L Creatinine 1.31 H (0.66-1.25) mg/dL Glucose 184 H 105 H (74-99) mg/dL POC Glucose (mg/dL) (70-110) mg/dL Plasma Lactic Acid Magen (0.7-2.0) mmol/L Calcium 8.0 L 7.8 L (8.4-10.2) mg/dL Alkaline Phosphatase 140 H 142 H (38-126) U/L Total Protein 4.2 L 4.7 L (6.3-8.2) g/dL Albumin 1.8 L 1.9 L (3.5-5.0) g/dL Digoxin ng/mL 02/13/23 Range/Units 06:01 WBC (3.8-10.6) k/uL RBC (4.30-5.90) m/uL Hgb (13.0-17.5) gm/dL Hct (39.0-53.0) % MCV (80.0-100.0) fL MCH (25.0-35.0) pg RDW (11.5-15.5) % Neutrophils # (1.3-7.7) k/uL Lymphocytes # (1.0-4.8) k/uL Macrocytosis ABG pH (7.35-7.45) ABG pCO2 (35-45) mmHg ABG pO2 215 H (83-108) mmHg ABG HCO3 (21-25) mmol/L ABG Total CO2 (19-24) mmol/L ABG O2 Saturation 99.0 H (94-97) % Chloride (98-107) mmol/L Carbon Dioxide (22-30) mmol/L Creatinine (0.66-1.25) mg/dL Glucose (74-99) mg/dL POC Glucose (mg/dL) (70-110) mg/dL Plasma Lactic Acid Magen (0.7-2.0) mmol/L Calcium (8.4-10.2) mg/dL Alkaline Phosphatase (38-126) U/L Total Protein (6.3-8.2) g/dL Albumin (3.5-5.0) g/dL Digoxin ng/mL - Imaging and Cardiology Chest x-ray: report reviewed Assessment and Plan (1) Atrial fibrillation with RVR Current Visit: Yes Status: Acute Priority: High Code(s): I48.91 - UNSPECIFIED ATRIAL FIBRILLATION SNOMED Code(s): 906673935540540 (2) Bicytopenia Current Visit: Yes Status: Acute Code(s): D75.89 - OTHER SPECIFIED DISEASES OF BLOOD AND BLOOD-FORMING ORGANS SNOMED Code(s): 21869293 (3) Diarrhea Current Visit: Yes Status: Acute Priority: High Code(s): R19.7 - DIARRHEA, UNSPECIFIED SNOMED Code(s): 10393607 (4) Intractable abdominal pain Current Visit: Yes Status: Acute Priority: High Code(s): R10.9 - UNSPECIFIED ABDOMINAL PAIN SNOMED Code(s): 36803104 Plan: A-fib -New onset -VQ low probability for PE -doppler of BLE is neg for DVT -Cardiology following -on eliquis anemia and thrombocytopenia -2/2 chemo -Anemia persists, stable -Platelets improved Diarrhea -C. diff, infection workup on the stool all reported negative -No bowel movement documented for 2 days pancreatic adenocarcinoma -Patient has received 3 cycles of neoadjuvant chemo. Plan is to get patient to surgery. Chemo is curative intent. -Agree with aggressive management of patient post cardiac arrest. -dose adjustments will be necessary for pt to tolerate more treatment to get to surgery. This will be taken care of once discharged when pt f/u with [facility] Oncologist -follow up before next chemo to assess readiness to resume Tx Doctor attests: I performed a history and physical examination of this patient, developed impression and plan of care. Discussed with dictator. I agree with dictators note, documented as a scribe.
[2023-02-13 17:21] LABS: Glucose,Whole Blood 42 mg/dL (70-110)
[2023-02-13 17:24] LABS: Glucose,Whole Blood 41 mg/dL (70-110)
[2023-02-13 17:28] LABS: Glucose,Whole Blood 90 mg/dL (70-110)
[2023-02-13] MEDS: NOREPINEPHRINE 8 MG in SODIUM CHLORIDE 0.9% 250 ML IV SCH (17:28)
[2023-02-13] MEDS: PRAVASTATIN SODIUM 20 MG TAB PO SCH (21:57)
[2023-02-14] MEDS: IPRATROPIUM-ALBUTEROL 3 ML NEB INHALATION SCH ×6 (00:40→21:22)
[2023-02-14 04:49] LABS: Glucose,Whole Blood 108 mg/dL (70-110)
[2023-02-14] MEDS: SODIUM CHLORIDE 0.9% 1,000 ML IV SCH ×4 (05:06→21:17)
[2023-02-14] MEDS: HYDROcodone/APAP 10-325MG 1 EACH TAB PO PRN ×3 (05:07→21:17)
[2023-02-14] MEDS: INSULIN ASPART (NovoLOG) 100 UNIT/ML VIAL SQ SCH ×4 (05:07→21:52)
[2023-02-14 05:14] LABS: Anisocytosis Slight; Basophils % (A) 0 %; Eosinophils % (A) 0 %; HCT 25.2 % (39.0-53.0); HGB 8.2 gm/dL (13.0-17.5); Hypochromasia Slight; Lymphocytes # (A) 0.8 k/uL (1.0-4.8); Lymphocytes % (A) 6 %; MCH 35.3 pg (25.0-35.0); MCHC 32.5 g/dL (31.0-37.0); MCV 108.7 fL (80.0-100.0); Macrocytosis Marked; Mean Platelet Volume 8.5; Monocytes # (A) 0.7 k/uL (0-1.0); Monocytes % (A) 5 %; Neutrophils # (A) 12.2 k/uL (1.3-7.7); Neutrophils % (A) 88 %; Platelet Count 163 k/uL (150-450); Poikilocytosis Moderate; RBC 2.32 m/uL (4.30-5.90); RDW 18.6 % (11.5-15.5); WBC 13.8 k/uL (3.8-10.6)
[2023-02-14 05:19] LABS: Calcium 7.7 mg/dL (8.4-10.2); Potassium 3.8 mmol/L (3.5-5.1)
[2023-02-14 05:24] LABS: Glucose,Whole Blood 59 mg/dL (70-110)
--- NOTE | 2023-02-14 05:41 | P.PN ---
Subjective Progress Note Date: 02/13/23 This is a pleasant 67 years old male with multiple medical problems who was admitted initially on 02/01 with shortness of breath and borderline blood pressure 105/78 thought secondary to A. fib and RVR as his heart rate was around 133. Patient has been able to by wwe wrestler and his dose of metoprolol increased from 50 mg up to 100 mg and continued on digoxin 250 mg as well as he is on liquids 5 mg. Patient with recent history of pancreatic cancer diagnosed last September and his been having chronic abdominal pain in the epigastrium about 7/10 similar since then. He has some mouth sores and bicytopenia secondary to recent chemotherapy, oncology team on the case. He is kept nothing by mouth and TPN is running partially because of his mouth sores. He still have bouts of diarrhea but states that he started getting better today and more formed. C. diff is negative. Patient says that his weakness is better than last week, he fell 2 days ago, Cedergren was negative at that time. He is fully awake and oriented denies chest pain or dyspnea. He still feels generally weak and he still have abdominal pain as above. No urinary complaints. Vitas looks stable. Patient is afebrile. Hemoglobin 8.4 and platelet count improved to 83. CT of the abdomen and pelvis showing cholelithiasis with biliary stent in place and fluid distention of the colon was closed with diarrhea. Patient currently on D5 normal saline at 50 mL per hour and Eliquis 5 mg. We will check vitamin B12 and vitamin D. Also will check stool for elastase 02/09/2023 Patient pulled his PICC line accidentally today. Patient is not confused. Patient does swallow evaluation and I agree with starting him on liquid diet with advanced as tolerated. His mouth sores have resolved significantly and they are minimum in his examination today. His A. fib is in control on metoprolol higher dose 100 mg and Eliquis 5 mg BMP is a stable Check labs in the morning including platelet count and hemoglobin and BMP. Patient says that diarrhea has significantly improved. We still waiting for elastase to check for pancreatic function. 02/10/2023 Patient diarrhea has stopped, his heart rate and A. fib has been controlled which were the 2 main acute reasons he came into the hospital with. Patient still with chronic problems since last September including loss of energy, epigastric and upper abdominal pain and severe anorexia related to his cancer. Patient is open to go to rehab however his main problem is inability to eat very at Oncology team on the case. We checked vitamin B12 more than 3600 which is very high level above the limits therefore we discontinued his vitamin B12 pills Vitamin B6 is low last than 5 at 4. Therefore was set replacement therapy. 02/11/2023 Patient clinically is the same, no significant diarrhea, abdominal pain is chronic. Still has low appetite Today I have a discussion with the patient about his eating and anorexia and he is willing to try soft diet today. Therefore we don't advance his liquid diet until soft diet and keep monitoring The meantime we will hold Imodium so we can monitor his diarrhea. Discussed with staff to check for still elastase. Oncology team on the case 02/12/2023 Today patient developed cardiac arrest and CODE BLUE was called. He underwent CPR several rounds and had cardiac rhythm of V. fib and V. tach. Patient regained blood pressure and pulse rate, He is intubated and sedated and transferred to the ICU. Patient was examined at bedside during the code, EKG showing ischemic changes, rhythm is bradycardic and patient was hypotensive. Pulmonary/critical care team and cardiology team evaluated the patient Continue with amiodarone, normal saline, antibiotic with Zosyn. I discussed the case with cardiology team, patient is a known severe ischemic cardiomyopathy, he is not a candidate for cardiac cath, discussed the prognosis with oncology team is recommended. I discussed the case with the sister Halle over the phone who told me she is the next of kin, and there are no other family members to discuss the case with, the case was discussed with her in detail, hospital course as well as today's event are explained to her. She referred to his advance directive stating no extraheroic measures, she confirms to me he is DO NOT RESUSCITATE, also she would like to talk to hospice team. consult for hospice for information is placed Patient is a known pancreatic cancer case, with severe anorexia since September 2022 as he stated, with significant weight loss, patient did not eat this morning, confirmed with the bedside nurse. Status post 3 cycles of chemotherapy. Prognosis remains guarded, Also we will consult oncology team for prognosis. I discussed the case with the ICU bed side nurse, he has advanced directive and Halle is name as his medical advocate. 02/13/2023 Patient is seen in follow-up today currently intubated in the ICU on mechanical ventilation and FiO2 is 40% with a PEEP of 5. Multiple medical consultations including cardiology, pulmonary, oncology following. Patient was status post cardiac arrest in a hospice consult was placed although family does not want to pursue this at this time and are agreeable to no code. Follow-up labs pending and overall prognosis remains extremely guarded. Patient is undergoing sedation holidays to assess mentation and neurology was consulted with a brain CT and EEG ordered and pending. Patient is currently afebrile with no reported chest pain or shortness of breath. No plans for weaning today. Review of systems: Unable to obtain as patient is currently sedated Active Medications Hydrocodone Bitart/Acetaminophen (Hydrocodone/Apap 10-325mg 1 Each Tab) 1 each PO Q6HR PRN PRN Reason: Pain Last Admin: 02/13/23 12:29 Dose: 1 each Albuterol/Ipratropium (Ipratropium-Albuterol 3 Ml Neb) 3 ml INHALATION RT-Q4H [facility] Last Admin: 02/13/23 12:20 Dose: 3 ml Apixaban (Apixaban 5 Mg Tab) 5 mg PO BID [facility]; Protocol Last Admin: 02/13/23 09:06 Dose: 5 mg Chlorhexidine Gluconate (Chlorhexidine Gluconate 15 Ml Cup) 15 ml MUCOUS MEM BID [facility] Last Admin: 02/13/23 09:06 Dose: 15 ml Cholecalciferol (Cholecalciferol 25 Mcg (1000 Iu) Tablet) 50 mcg PO DAILY [facility] Last Admin: 02/13/23 09:06 Dose: 50 mcg Hydromorphone HCl (Hydromorphone 1 Mg/Ml 1 Ml Syringe) 1 mg IVP Q3HR PRN PRN Reason: Severe Pain (Scale 7 to 10) Last Admin: 02/10/23 10:00 Dose: 1 mg Propofol 1,000 mg/ IV Solution 100 mls @ 6.736 mls/hr IV .[id number] [facility]; Protocol Last Titration: 02/13/23 12:41 Dose: 30 mcg/kg/min, 13.472 mls/hr Norepinephrine Bitartrate 8 mg (/ Sodium Chloride) 258 mls @ 4.345 mls/hr IV .Q24H [facility]; Protocol Last Admin: 04/23/23 14:07 Dose: 0.03 mcg/kg/min, 4.345 mls/hr Sodium Chloride (Saline 0.9%) 1,000 mls @ 150 mls/hr IV .Q6H40M [facility] Last Admin: 02/13/23 09:35 Dose: 150 mls/hr Piperacillin Sod/Tazobactam (Sod 3.375 gm/ Sodium Chloride) 100 mls @ 25 mls/hr IVPB Q8HR [facility]; Protocol Last Admin: 02/13/23 09:07 Dose: 25 mls/hr Insulin Aspart (Insulin Aspart (Novolog) 100 Unit/Ml Vial) 0 unit SQ ACHS [facility]; Protocol Last Admin: 02/13/23 12:49 Dose: Not Given Naloxone HCl (Naloxone 0.4 Mg/Ml 1 Ml Vial) 0.2 mg IV Q2M PRN PRN Reason: Opioid Reversal Ondansetron HCl (Ondansetron 4 Mg/2 Ml Vial) 4 mg IVP Q8HR PRN PRN Reason: Nausea And Vomiting Pantoprazole Sodium (Pantoprazole 40 Mg/10 Ml Vial) 40 mg IV DAILY [facility] Last Admin: 02/13/23 09:06 Dose: 40 mg Pravastatin Sodium (Pravastatin Sodium 20 Mg Tab) 20 mg PO HS [facility] Last Admin: 02/12/23 22:33 Dose: 20 mg Pyridoxine HCl (Pyridoxine 50 Mg Tab) 50 mg PO BID [facility] Last Admin: 02/13/23 09:07 Dose: 50 mg Physical exam: GENERAL: The patient is intubated and sedated, undergoing sedation holidays and per nursing staff patient is following commands HEENT: Pupils are round and equally reacting to light. EOMI. No scleral icterus. No conjunctival pallor. Normocephalic, atraumatic. No pharyngeal erythema. No thyromegaly. CARDIOVASCULAR: S1 and S2 present. No murmurs, rubs, or gallops. Bradycardic PULMONARY: Chest is clear to auscultation, no wheezing or crackles. Patient is not Tachypneic ABDOMEN: Soft, no rebound tenderness or guarding, nondistended, normoactive bowel sounds. No palpable organomegaly. MUSCULOSKELETAL: No joint swelling or deformity. EXTREMITIES: No cyanosis, clubbing, or pedal edema. NEUROLOGICAL: Gross neurological examination did not reveal any focal deficits. SKIN: No rashes. no petechiae. Assessment: Status post cardiac arrest and CPR with eventual regaining of circulation Hypotension and bradycardia secondary to above Acute hypoxemic respiratory failure requiring intubation and mechanical ventilation A. fib and RVR, present on admission, currently rate is better controlled Pancreatic cancer status post chemotherapy Severe anorexia, since last September, most likely related to his cancer Chronic abdominal pain secondary to above. 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 Patient is not requiring pressor support and undergoing sedation holiday and per nursing staff patient is awake and following commands appropriately Oncology following as well as patient does have pancreatic cancer currently treatments are on hold Continue with Eliquis Prognosis is poor. Family agreeable to be DO NOT RESUSCITATE, hospice team was consulted status post cardiac arrest and family would like to hold off on hospice at this time The impression and plan of care has been dictated by Jasmina Toledo, Nurse Practitioner as directed. Dr. Brianda MD I have performed a history and examination and MDM of this patient, discussed the same with the dictator, and agree with the dictator's assessment and plan as written ,documented as a scribe. Based on total visit time, I have performed more than 50% of the visit. Objective - Vital Signs Vital signs: Vital Signs Temp 96 F L 02/13/23 04:00 Pulse 52 L 02/13/23 07:00 Resp 13 02/13/23 07:00 BP 109/53 02/13/23 07:00 Pulse Ox 100 02/13/23 07:00 FiO2 50 02/13/23 08:35 Intake & Output 02/12/23 02/13/23 02/13/23 18:59 06:59 18:59 Intake Total 5181.253 5706.000 255.763 Output Total 260 350 30 Balance 9143.307 0454.000 225.763 Weight 79.4 kg Intake: IV 1800 1800 150 Sodium Chloride 0.9% 1, 800 1800 150 000 ml @ 150 mls/hr IV . Q6H40M [facility] Rx#:[id number] Sodium Chloride 0.9% 1, 1000 000 ml @ 999 mls/hr IV . Q1H1M [facility] Rx#:[id number] Intake, IV Titration 149.444 200.000 105.763 Amount Amiodarone 360 mg In 49.444 Dextrose 5% in Water 200 ml @ 1 MG/MIN 33.333 mls/ hr IV .Q6H [facility] Rx#: [id number] propofoL 1,000 mg In 100.000 200.000 105.763 Empty Bag 1 bag @ 15 MCG/ KG/MIN 6.736 mls/hr IV . [id number] [facility] Rx#:[id number] Output: Urine 260 350 30 Stool 0 Other: Voiding Method Indwelling Catheter Indwelling Catheter # Voids 1 ABP, PAP, CO, CI - Last Documented Arterial Blood Pressure 117/47 - Labs CBC & Chem 7: 02/14/23 04:45 02/14/23 04:45 Labs: Abnormal Lab Results - Last 24 Hours (Table) 02/12/23 02/12/23 02/12/23 Range/Units 11:33 12:34 12:53 WBC (3.8-10.6) k/uL RBC (4.30-5.90) m/uL Hgb (13.0-17.5) gm/dL Hct (39.0-53.0) % MCV (80.0-100.0) fL MCH (25.0-35.0) pg RDW (11.5-15.5) % Neutrophils # (1.3-7.7) k/uL Lymphocytes # (1.0-4.8) k/uL Macrocytosis ABG pH 7.22 L (7.35-7.45) ABG pCO2 30 L (35-45) mmHg ABG pO2 >400 H (83-108) mmHg ABG HCO3 12 L (21-25) mmol/L ABG Total CO2 13 L (19-24) mmol/L ABG O2 Saturation 100.0 H (94-97) % Chloride (98-107) mmol/L Carbon Dioxide (22-30) mmol/L Creatinine (0.66-1.25) mg/dL Glucose (74-99) mg/dL POC Glucose (mg/dL) 115 H 186 H (70-110) mg/dL Plasma Lactic Acid Magen (0.7-2.0) mmol/L Calcium (8.4-10.2) mg/dL Alkaline Phosphatase (38-126) U/L Total Protein (6.3-8.2) g/dL Albumin (3.5-5.0) g/dL Digoxin ng/mL 02/12/23 02/12/23 02/12/23 Range/Units 14:20 14:20 14:20 WBC 15.8 H (3.8-10.6) k/uL RBC 2.23 L (4.30-5.90) m/uL Hgb 7.9 L D (13.0-17.5) gm/dL Hct 23.9 L (39.0-53.0) % MCV 107.2 H (80.0-100.0) fL MCH 35.3 H (25.0-35.0) pg RDW 18.3 H (11.5-15.5) % Neutrophils # 14.5 H (1.3-7.7) k/uL Lymphocytes # 0.6 L (1.0-4.8) k/uL Macrocytosis Marked A ABG pH (7.35-7.45) ABG pCO2 (35-45) mmHg ABG pO2 (83-108) mmHg ABG HCO3 (21-25) mmol/L ABG Total CO2 (19-24) mmol/L ABG O2 Saturation (94-97) % Chloride (98-107) mmol/L Carbon Dioxide (22-30) mmol/L Creatinine (0.66-1.25) mg/dL Glucose (74-99) mg/dL POC Glucose (mg/dL) (70-110) mg/dL Plasma Lactic Acid Magen 5.7 H* (0.7-2.0) mmol/L Calcium (8.4-10.2) mg/dL Alkaline Phosphatase (38-126) U/L Total Protein (6.3-8.2) g/dL Albumin (3.5-5.0) g/dL Digoxin 3.1 H* ng/mL 02/12/23 02/13/23 02/13/23 Range/Units 14:24 04:48 04:48 WBC (3.8-10.6) k/uL RBC 2.42 L (4.30-5.90) m/uL Hgb 8.6 L (13.0-17.5) gm/dL Hct 25.9 L (39.0-53.0) % MCV 107.1 H (80.0-100.0) fL MCH 35.7 H (25.0-35.0) pg RDW 18.6 H (11.5-15.5) % Neutrophils # (1.3-7.7) k/uL Lymphocytes # (1.0-4.8) k/uL Macrocytosis Marked A ABG pH (7.35-7.45) ABG pCO2 (35-45) mmHg ABG pO2 (83-108) mmHg ABG HCO3 (21-25) mmol/L ABG Total CO2 (19-24) mmol/L ABG O2 Saturation (94-97) % Chloride 114 H 117 H (98-107) mmol/L Carbon Dioxide 18 L 20 L (22-30) mmol/L Creatinine 1.31 H (0.66-1.25) mg/dL Glucose 184 H 105 H (74-99) mg/dL POC Glucose (mg/dL) (70-110) mg/dL Plasma Lactic Acid Magen (0.7-2.0) mmol/L Calcium 8.0 L 7.8 L (8.4-10.2) mg/dL Alkaline Phosphatase 140 H 142 H (38-126) U/L Total Protein 4.2 L 4.7 L (6.3-8.2) g/dL Albumin 1.8 L 1.9 L (3.5-5.0) g/dL Digoxin ng/mL 02/13/23 Range/Units 06:01 WBC (3.8-10.6) k/uL RBC (4.30-5.90) m/uL Hgb (13.0-17.5) gm/dL Hct (39.0-53.0) % MCV (80.0-100.0) fL MCH (25.0-35.0) pg RDW (11.5-15.5) % Neutrophils # (1.3-7.7) k/uL Lymphocytes # (1.0-4.8) k/uL Macrocytosis ABG pH (7.35-7.45) ABG pCO2 (35-45) mmHg ABG pO2 215 H (83-108) mmHg ABG HCO3 (21-25) mmol/L ABG Total CO2 (19-24) mmol/L ABG O2 Saturation 99.0 H (94-97) % Chloride (98-107) mmol/L Carbon Dioxide (22-30) mmol/L Creatinine (0.66-1.25) mg/dL Glucose (74-99) mg/dL POC Glucose (mg/dL) (70-110) mg/dL Plasma Lactic Acid Magen (0.7-2.0) mmol/L Calcium (8.4-10.2) mg/dL Alkaline Phosphatase (38-126) U/L Total Protein (6.3-8.2) g/dL Albumin (3.5-5.0) g/dL Digoxin ng/mL
[2023-02-14 06:18] LABS: ABG Base Excess -8.4 mmol/L; ABG HCO3 18 mmol/L (21-25); ABG Oxygen Saturation 99.6 % (94-97); ABG PCO2 36 mmHg (35-45); ABG PO2 157 mmHg (83-108); ABG TCO2 19 mmol/L (19-24); Allen Test Performed? Yes
--- NOTE | 2023-02-14 07:09 | XR ---
EXAMINATION TYPE: XR chest 1V portable DATE OF EXAM: 02/14/2023 COMPARISON: 02/13/2023 HISTORY: SOB, Follow Up FINDINGS: Indwelling tubes and catheters are unchanged. Persistent vague increased density right lung base as well as probable atelectasis left medial lung b ase. The lung apices are cut off the [id number]. Stable appearance of the cardio-mediastinal structures at this time. IMPRESSION: 1. Stable portable chest. Clinical correlation and follow up until resolution is recommended.
[2023-02-14] MEDS ORDERED: POTASSIUM BICARBONATE/CIT AC 20 MEQ TABLET.EFF NG-TUBE SCH (08:00)
[2023-02-14] MEDS: CHLORHEXIDINE GLUCONATE 15 ML CUP MUCOUS MEM SCH ×2 (08:33→21:18)
[2023-02-14] MEDS: PIPERACILLIN-TAZOBACTAM 3.375 GM in SODIUM CHLORIDE 0.9% 100 ML IVPB SCH ×2 (08:33→15:09)
[2023-02-14] MEDS: PYRIDOXINE 50 MG TAB PO SCH ×2 (08:33→21:17)
[2023-02-14] MEDS: PANTOPRAZOLE 40 MG/10 ML VIAL IV SCH (08:33)
[2023-02-14] MEDS: CHOLECALCIFEROL 25 MCG (1000 IU) TABLET PO SCH (08:34)
[2023-02-14] MEDS: APIXABAN 5 MG TAB PO SCH ×2 (08:34→21:16)
--- NOTE | 2023-02-14 10:11 | P.PN ---
Subjective PROGRESS NOTE The patient is a 68-year-old male, who was admitted on January 31 with evidence of atrial fibrillation. He has a known history of CAD, post stenting of the RCA in 1996, severe ischemic cardiomyopathy, moderate mitral regurgitation, hy pertension hyperlipidemia and peripheral vascular disease who was being evaluated to undergo an ICD implant that was canceled because of a diagnosis of pancreatic cancer. The patient has lost a lot of weight and has not been able to eat. According to the nursing staff he was relatively stable when he went into ventricular tachycardia and had a cardiac arrest requiring a prolonged CPR with subsequent orthodoxy of sinus mechanism after receiving multiple shocks, epinephrine and amiodarone. According to the note patient has been having severe abdominal pain and had been unable to eat or drink. He was seen in the ICU, intubated and sedated. Over the last few days the patient had episode of bradycardia and pauses. 02/13 Patient seen and examined. Patient remains intubated and sedated on ventilator. PEEP of 5 and FiO2 50%. Blood pressures 110s over 50s off of any vasopressors. Remains sedated. Intermittent bradycardia heart rates in the 40s and 50s and intermittent second-degree blocks. Amio drip was stopped secondary to bradycardia. 02/14 Patient seen and examined. Patient off of any vasopressors and remains sedated on propofol. Amiodarone drip was discontinued secondary to bradycardia. No significant ventricular ectopy. On ventilator with a FiO2 40% and PEEP of 5. Receiving IV fluids at 150 mL per hour. PHYSICAL EXAMINATION: Vitals reviewed LUNGS: Clear to auscultation HEART: Irregular rate and rhythm, S1, S2. No S3. systolic ejection murmur ABDOMEN: Soft, positive bowel sounds, no organomegaly EXTREMETIES: No edema IMPRESSION: 1. Cardiac arrest with recurrent ventricular fibrillation and tachycardia requiring CPR 2. Known history of severe ischemic cardiomyopathy 3. Known history of CAD status post stenting of the RCA in 1996 4. Pancreatic cancer 5. Poor by mouth intake with severe weight loss 6. Anemia PLAN: Patient appears relatively stable. Continue to monitor for neurologic recovery. Hold amiodarone given significant bradycardia. No further significant ectopy. Poor prognosis and AICD would not alter patient's prognosis. Further recommendations to follow. Objective - Vital Signs Vital signs: Vital Signs Temp 96.7 F L 02/14/23 08:00 Pulse 75 02/14/23 09:00 Resp 21 02/14/23 09:00 BP 101/52 02/13/23 12:45 Pulse Ox 100 02/14/23 09:00 FiO2 40 02/14/23 08:17 Intake & Output 02/13/23 02/14/23 02/14/23 18:59 06:59 18:59 Intake Total 2134.256 2296.282 415.705 Output Total 335 400 180 Balance 6873.207 7920.282 235.705 Weight 79.4 kg 81.7 kg Intake: IV 1800 1800 306 Sodium Chloride 0.9% 1, 1800 1800 300 000 ml @ 150 mls/hr IV . Q6H40M [facility] Rx#:[id number] pressure bags 6 Intake, IV Titration 304.256 256.282 39.705 Amount Piperacillin-Tazobactam 3 100 .375 gm In Sodium Chloride 0.9% 100 ml @ 25 mls/hr IVPB Q8HR [facility] Rx# :[id number] propofoL 1,000 mg In 204.256 256.282 39.705 Empty Bag 1 bag @ 15 MCG/ KG/MIN 6.736 mls/hr IV . [id number] [facility] Rx#:[id number] Tube Feeding 30 150 40 Other 90 30 Output: Urine 335 400 180 Other: Voiding Method Indwelling Catheter Indwelling Catheter Indwelling Catheter ABP, PAP, CO, CI - Last Documented Arterial Blood Pressure 134/43 - Labs CBC & Chem 7: 02/14/23 04:45 02/14/23 04:45 Labs: Abnormal Lab Results - Last 24 Hours (Table) 02/13/23 02/13/23 02/14/23 Range/Units 17:20 17:22 04:45 WBC 13.8 H (3.8-10.6) k/uL RBC 2.32 L (4.30-5.90) m/uL Hgb 8.2 L (13.0-17.5) gm/dL Hct 25.2 L (39.0-53.0) % MCV 108.7 H (80.0-100.0) fL MCH 35.3 H (25.0-35.0) pg RDW 18.6 H (11.5-15.5) % Neutrophils # 12.2 H (1.3-7.7) k/uL Lymphocytes # 0.8 L (1.0-4.8) k/uL Macrocytosis Marked A ABG pH (7.35-7.45) ABG pO2 (83-108) mmHg ABG HCO3 (21-25) mmol/L ABG O2 Saturation (94-97) % Chloride (98-107) mmol/L Carbon Dioxide (22-30) mmol/L Creatinine (0.66-1.25) mg/dL Glucose (74-99) mg/dL POC Glucose (mg/dL) 42 L 41 L (70-110) mg/dL Calcium (8.4-10.2) mg/dL 02/14/23 02/14/23 02/14/23 Range/Units 04:45 05:23 06:14 WBC (3.8-10.6) k/uL RBC (4.30-5.90) m/uL Hgb (13.0-17.5) gm/dL Hct (39.0-53.0) % MCV (80.0-100.0) fL MCH (25.0-35.0) pg RDW (11.5-15.5) % Neutrophils # (1.3-7.7) k/uL Lymphocytes # (1.0-4.8) k/uL Macrocytosis ABG pH 7.30 L (7.35-7.45) ABG pO2 157 H (83-108) mmHg ABG HCO3 18 L (21-25) mmol/L ABG O2 Saturation 99.6 H (94-97) % Chloride 119 H (98-107) mmol/L Carbon Dioxide 18 L (22-30) mmol/L Creatinine 1.67 H (0.66-1.25) mg/dL Glucose 104 H (74-99) mg/dL POC Glucose (mg/dL) 59 L (70-110) mg/dL Calcium 7.7 L (8.4-10.2) mg/dL Microbiology - Last 24 Hours (Table) 02/12/23 21:43 Gram Stain - Preliminary Sputum Sputum Culture - Preliminary
[2023-02-14 11:30] LABS: Glucose,Whole Blood 94 mg/dL (70-110)
--- NOTE | 2023-02-14 12:27 | P.PN ---
Subjective Progress Note Date: 02/14/23 Principal diagnosis: Cardiac arrest with acute hypoxic respiratory failure 68-year-old male patient with an extensive cardiac disease, coronary artery disease, chronic atrial fibrillation and severe ischemic cardiomyopathy in addition to a recent diagnosis of a pancreatic cancer. The patient was has less for A. fib RVR. Earlier this morning, the patient went into cardiac arrest. DRAGAN GARCIA was called at 1131. The patient was immediately resuscitated based on the ACLS protocol. Initial rhythm was ventricular fibrillation with no pulse. Total code time was approximately 36 minutes. Throughout the code, patient had received 6 shocks, initial joules were 150, then escalated to 200 J. Patient received a 300 mg amiodarone bolus, then proceeded 150 mg amiodarone bolus. Patient received multiple pushes of epinephrine. Patient also received 2 g of magnesium sulfate, 1 g of calcium chloride. Patient had return of spontaneous circulation for the first time at 1152, was noted to be in junctional bradycardia and received one push of atropine 1156, loss pulse again and went into V. fib 1157 with CPR resumed. Patient was shocked again for the 6 time at 1158, received 1 g calcium. He again had return of spontaneous circulation 1159 with a pulse, rhythm was junctional rhythm with a heart rate of 57. Patient's blood pressure was cycled and noted to be 172/118. 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 After discussion with library media specialist, patient was transferred to the intensive care unit for further monitoring. Patient's family was notified by nursing. Patient's attending was also present throughout the code, and signout was given to him upon transfer to the intensive care unit. At this point in time, the patient is intubated on a mechanical ventilator. He is on a propofol running at 40 microvascular kilogram per minutes. Is on assist-control mode of mechanical ventilation at the rate of 16, tidal volume of 400, FiO2 wasn't 100% with PEEP of 5. The initial blood gas showed a pH of 7.22 with a pCO2 of 30 and pO2 more than 400. FiO2 is being weaned. Chest x-ray showed ET tube being in a good location. The patient has a port over the right anterior chest. There is increased opacity around the right perihilar area. The patient currently is hypotensive. The patient is receiving a bolus of nor mal saline 1 L. Blood work is still pending for now. The blood work from yesterday was noted and the patient has a WBC count 9.6 with a hemoglobin of 9.7. Electrolytes are all within normal limits. Normal renal function. His most recent cardiac rhythm is sinus bradycardia with first-degree AV block. The patient was started on amiodarone per cardiology recommendation currently running at 1 mg/m. He is on anticoagulation with Eliquis 5 mg by mouth twice a day. He is also supposed to be on metoprolol which is currently on hold. The patient had a triple-lumen catheter and arterial line catheter inserted in the ICU. He looks very marked emaciated and cachectic Reevaluated today on02/13/2023, patient remains in the ICU intubated and mechanically ventilated. He is on assist control rate of 16 volume 400 FiO2 50% PEEP of 5 ABG showed a pO2 of 215 pCO2 35 pH of 7.38 patient is on propofol at 45 mcg/kg/m, he is also on IV fluid 0.9 normal saline at 1 50 mL per hour. Patient is on Zosyn empirically, neurology consultation is pending, patient had a cardiac arrest and his down time was 36 minutes. Not to mention the patient has underlying metastatic pancreatic carcinoma. His FiO2 was cut down to 40% after reviewing his ABG. Chest x-ray showed, minimal right lower lobe opacity could be atelectasis or could be aspiration pneumonia in nature. WBC count today is 10.4 hemoglobin is 8.6 electrode start normal however his creatinine is 1.31, baseline creatinine prior to the cardiac arrest was 0.890. Patient remains on eliquis, he is also on Zosyn. And his IV fluid is 0.9 normal saline at 1 50 mL per hour. Patient is receiving Protonix for GI prophylaxis. And he will be started on enteral feeding today. Luckily the patient is hemodynamically stable, not requiring any pressors at this point. Nonetheless he is critically ill. And I have advised holding propofol and assess mental status today. Seen by neurology on consultation, CT of the head and EEG are pending. Looking back at his digitoxin level was noted to be elevated 3.1, and that is being addressed by cardiology. Reevaluated today on 02/14/2023, patient remains in the ICU, intubated and mechanically ventilated. Patient is on assist control rate of 16 tidal volume 400 FiO2 40% and PEEP of 5 ABG showed a pO2 of 157 pCO2 36 pH of 7.30 hence we'll decrease FiO2 to 35%. Otherwise no change in ventilator settings. Patient is receiving propofol at 45 mg/kg/m, also receiving IV fluid at 1 50 mL per hour. Vital Hp at 20 mL per hour. Brain CT showed no acute intracranial process chest x-ray showed vague density at the right lung base, possibly atelectasis, or could be early infiltrate/aspiration. Labs today WBC count of 13.8 hemoglobin is 8.2, basic metabolic profile is normal bicarb is 18, patient has hyperchloremic non-anion gap metabolic acidosis. BUN is 14 creatinine 1.67 on slightly worse compared to yesterday. Patient remains on Zosyn empirically, he is also on bronchodilators, and on GI and DVT prophylaxis. Receiving eliquis 5 mg twice a day and is also on pantoprazole Objective - Vital Signs Vital signs: Vital Signs Temp 96.4 F L 02/14/23 12:00 Pulse 72 02/14/23 12:13 Resp 17 02/14/23 12:00 BP 101/52 02/13/23 12:45 Pulse Ox 100 02/14/23 12:00 FiO2 40 02/14/23 12:13 Intake & Output 02/13/23 02/14/23 02/14/23 18:59 06:59 18:59 Intake Total 2134.256 2296.282 1276.385 Output Total 335 400 380 Balance 4436.460 8803.282 896.385 Weight 79.4 kg 81.7 kg Intake: IV 1800 1800 1030 Sodium Chloride 0.9% 1, 1800 1800 900 000 ml @ 150 mls/hr IV . Q6H40M ANDREW Rx#:[id number] pressure bags 30 propofoL 1,000 mg In 100 Empty Bag 1 bag @ 15 MCG/ KG/MIN 6.736 mls/hr IV . [id number] ANDREW Rx#:[id number] Intake, IV Titration 304.256 256.282 66.385 Amount Piperacillin-Tazobactam 3 100 .375 gm In Sodium Chloride 0.9% 100 ml @ 25 mls/hr IVPB Q8HR ANDREW Rx# :[id number] propofoL 1,000 mg In 204.256 256.282 66.385 Empty Bag 1 bag @ 15 MCG/ KG/MIN 6.736 mls/hr IV . [id number] ANDREW Rx#:[id number] Tube Feeding 30 150 120 Other 90 60 Output: Urine 335 400 380 Other: Voiding Method Indwelling Catheter Indwelling Catheter Indwelling Catheter ABP, PAP, CO, CI - Last Documented Arterial Blood Pressure 114/35 - Exam Physical Exam: Revealed a 68-year-old white male in no distress, intubated mechanically ventilated. Sedated on propofol. Will discontinue propofol and assess mental status and possibly weaning trial today Head: Atraumatic normocephalic. HEENT:[Neck is supple.] [No neck masses.] [No thyromegaly.] [No JVD.] Pupils seem to be pinpoint. Bilaterally. Chest: [Clear throughout, no crackles, no rhonchi, no wheezes.] Cardiac Exam: [Irregular irregular rhythm. Normal S1 and S2, no S3 gallop, 2/6 systolic ejection murmur throughout the precordium. Abdomen: [Soft, nontender, no megaly, no rebound, no guarding, normal bowel sounds.] Extremities: [No clubbing, no edema, no cyanosis.] Neurological Exam: Cannot assess, patient is sedated, on propofol. Psychiatric: Could not assess. Patient is on propofol. Skin: No rashes - Labs CBC & Chem 7: 02/14/23 04:45 02/14/23 04:45 Labs: Abnormal Lab Results - Last 24 Hours (Table) 02/13/23 02/13/23 02/14/23 Range/Units 17:20 17:22 04:45 WBC 13.8 H (3.8-10.6) k/uL RBC 2.32 L (4.30-5.90) m/uL Hgb 8.2 L (13.0-17.5) gm/dL Hct 25.2 L (39.0-53.0) % MCV 108.7 H (80.0-100.0) fL MCH 35.3 H (25.0-35.0) pg RDW 18.6 H (11.5-15.5) % Neutrophils # 12.2 H (1.3-7.7) k/uL Lymphocytes # 0.8 L (1.0-4.8) k/uL Macrocytosis Marked A ABG pH (7.35-7.45) ABG pO2 (83-108) mmHg ABG HCO3 (21-25) mmol/L ABG O2 Saturation (94-97) % Chloride (98-107) mmol/L Carbon Dioxide (22-30) mmol/L Creatinine (0.66-1.25) mg/dL Glucose (74-99) mg/dL POC Glucose (mg/dL) 42 L 41 L (70-110) mg/dL Calcium (8.4-10.2) mg/dL 02/14/23 02/14/23 02/14/23 Range/Units 04:45 05:23 06:14 WBC (3.8-10.6) k/uL RBC (4.30-5.90) m/uL Hgb (13.0-17.5) gm/dL Hct (39.0-53.0) % MCV (80.0-100.0) fL MCH (25.0-35.0) pg RDW (11.5-15.5) % Neutrophils # (1.3-7.7) k/uL Lymphocytes # (1.0-4.8) k/uL Macrocytosis ABG pH 7.30 L (7.35-7.45) ABG pO2 157 H (83-108) mmHg ABG HCO3 18 L (21-25) mmol/L ABG O2 Saturation 99.6 H (94-97) % Chloride 119 H (98-107) mmol/L Carbon Dioxide 18 L (22-30) mmol/L Creatinine 1.67 H (0.66-1.25) mg/dL Glucose 104 H (74-99) mg/dL POC Glucose (mg/dL) 59 L (70-110) mg/dL Calcium 7.7 L (8.4-10.2) mg/dL Microbiology - Last 24 Hours (Table) 02/12/23 21:43 Gram Stain - Preliminary Sputum Sputum Culture - Preliminary Assessment and Plan Assessment: Impression: Acute hypoxic respiratory failure secondary to cardiac arrest with recurrent ventricular fibrillation and tachycardia requiring CPR, down time was about 36 minutes. Possible anoxic brain injury , however yesterday the patient was following simple instructions off sedation and we'll try to assess mental status again today off sedation. possible right lower lobe aspiration pneumonia Severe ischemic cardiomyopathy and LV dysfunction Underlying coronary artery disease and previous stenting of RCA in 1996 Pancreatic cancer Severe weight loss secondary to pancreatic malignancy Chronic anemia Chronic atrial fibrillation, previous unsuccessful cardioversions History of obstructive jaundice secondary to pancreatic cancer and requiring biliary stenting Benign essential hypertension Severe cachexia/protein calorie malnutrition secondary to pancreatic malignancy Failure to thrive secondary to pancreatic cancer Peripheral vessel occlusive disease Type 2 diabetes without complications Acute digoxin toxicity, being addressed by cardiology Recommendation: Continue ventilatory support Continue fluids Continue nutritional support/enteral feeding Continue Zosyn for possible aspiration pneumonia Hold propofol today and assess mental status and possibly check weaning parameters Continue GI and DVT prophylaxis Cardiology to see regarding his cardiac arrest and cardiac arrhythmia Prognosis is relatively guarded. Remains critically ill. We'll continue to follow. Critical care time is over 30 minutes. Time with Patient: Greater than 30
--- NOTE | 2023-02-14 13:23 | P.PN ---
Subjective Progress Note Date: 02/14/23 Principal diagnosis: hx pancreatic cancer, thromobocytopenia At today's visit patient is in the ICU. He is ventilated and on sedation. Nurse reports yesterday pt was more responsive during sedation holiday And was responding to commands. Today patient opens eye to tactile stimulus. He is not responding to commands. He is hemodynamically stable Objective - Vital Signs Vital signs: Vital Signs Temp 96.4 F L 02/14/23 12:00 Pulse 72 02/14/23 12:13 Resp 17 02/14/23 12:00 BP 101/52 02/13/23 12:45 Pulse Ox 100 02/14/23 12:00 FiO2 40 02/14/23 12:13 Intake & Output 02/13/23 02/14/23 02/14/23 18:59 06:59 18:59 Intake Total 2134.256 2296.282 1276.385 Output Total 335 400 380 Balance 6930.825 5916.282 896.385 Weight 79.4 kg 81.7 kg Intake: IV 1800 1800 1030 Sodium Chloride 0.9% 1, 1800 1800 900 000 ml @ 150 mls/hr IV . Q6H40M ANDREW Rx#:[id number] pressure bags 30 propofoL 1,000 mg In 100 Empty Bag 1 bag @ 15 MCG/ KG/MIN 6.736 mls/hr IV . [id number] ANDREW Rx#:[id number] Intake, IV Titration 304.256 256.282 66.385 Amount Piperacillin-Tazobactam 3 100 .375 gm In Sodium Chloride 0.9% 100 ml @ 25 mls/hr IVPB Q8HR ANDREW Rx# :[id number] propofoL 1,000 mg In 204.256 256.282 66.385 Empty Bag 1 bag @ 15 MCG/ KG/MIN 6.736 mls/hr IV . [id number] ANDREW Rx#:[id number] Tube Feeding 30 150 120 Other 90 60 Output: Urine 335 400 380 Other: Voiding Method Indwelling Catheter Indwelling Catheter Indwelling Catheter ABP, PAP, CO, CI - Last Documented Arterial Blood Pressure 114/35 - Constitutional General appearance: Present: no acute distress, thin - EENT Eyes: Present: anicteric sclerae - Respiratory Details: Mechanically ventilated - Cardiovascular Rhythm: regular - Integumentary Integumentary: Present: pale - Neurologic Neurologic Comment(s): sedated - Labs CBC & Chem 7: 02/14/23 04:45 02/14/23 04:45 Labs: Abnormal Lab Results - Last 24 Hours (Table) 02/13/23 02/13/23 02/14/23 Range/Units 17:20 17:22 04:45 WBC 13.8 H (3.8-10.6) k/uL RBC 2.32 L (4.30-5.90) m/uL Hgb 8.2 L (13.0-17.5) gm/dL Hct 25.2 L (39.0-53.0) % MCV 108.7 H (80.0-100.0) fL MCH 35.3 H (25.0-35.0) pg RDW 18.6 H (11.5-15.5) % Neutrophils # 12.2 H (1.3-7.7) k/uL Lymphocytes # 0.8 L (1.0-4.8) k/uL Macrocytosis Marked A ABG pH (7.35-7.45) ABG pO2 (83-108) mmHg ABG HCO3 (21-25) mmol/L ABG O2 Saturation (94-97) % Chloride (98-107) mmol/L Carbon Dioxide (22-30) mmol/L Creatinine (0.66-1.25) mg/dL Glucose (74-99) mg/dL POC Glucose (mg/dL) 42 L 41 L (70-110) mg/dL Calcium (8.4-10.2) mg/dL 02/14/23 02/14/23 02/14/23 Range/Units 04:45 05:23 06:14 WBC (3.8-10.6) k/uL RBC (4.30-5.90) m/uL Hgb (13.0-17.5) gm/dL Hct (39.0-53.0) % MCV (80.0-100.0) fL MCH (25.0-35.0) pg RDW (11.5-15.5) % Neutrophils # (1.3-7.7) k/uL Lymphocytes # (1.0-4.8) k/uL Macrocytosis ABG pH 7.30 L (7.35-7.45) ABG pO2 157 H (83-108) mmHg ABG HCO3 18 L (21-25) mmol/L ABG O2 Saturation 99.6 H (94-97) % Chloride 119 H (98-107) mmol/L Carbon Dioxide 18 L (22-30) mmol/L Creatinine 1.67 H (0.66-1.25) mg/dL Glucose 104 H (74-99) mg/dL POC Glucose (mg/dL) 59 L (70-110) mg/dL Calcium 7.7 L (8.4-10.2) mg/dL Microbiology - Last 24 Hours (Table) 02/12/23 21:43 Gram Stain - Preliminary Sputum Sputum Culture - Preliminary Assessment and Plan (1) Atrial fibrillation with RVR Current Visit: Yes Status: Acute Priority: High Code(s): I48.91 - UNSPECIFIED ATRIAL FIBRILLATION SNOMED Code(s): 871168977059685 (2) Diarrhea Current Visit: Yes Status: Acute Priority: High Code(s): R19.7 - DIARRHEA, UNSPECIFIED SNOMED Code(s): 15838778 (3) Thrombocytopenia Current Visit: Yes Status: Acute Priority: High Code(s): D69.6 - THROMBOCYTOPENIA, UNSPECIFIED SNOMED Code(s): 227898541 Plan: A-fib -New onset -VQ low probability for PE -Doppler of BLE is neg for DVT -Cardiology following -on eliquis on admit -Over the weekend patient went into v-fib and cardiac arrest and CPR was performed with ROSC. Pt was transferred to ICU, is ventilated and on sedation. Pulmonology and cardiology following anemia and thrombocytopenia -2/2 chemo -cont anticoagulation as long as plt >50k. Platelets stable -Hemoglobin 8.2, no reported episodes of bleeding -transfuse for Hgb<7, plt <50K so pt can remain on anticoagulation Diarrhea -Diarrhea resolved. Discontinued scheduled Lomotil and Imodium. Imodium prn -suspect an enteritis based on physical exam findings -stool studies, c-diff negative pancreatic adenocarcinoma -s/p 3 cycles of neoadjuvant chemo. Plan is to get patient to surgery. Chemo is curative intent. -Agree with aggressive management of patient post cardiac arrest. -dose adjustments will be necessary for pt to tolerate more treatment to get to surgery. This will be taken care of once discharged when pt f/u with Primary Oncologist -Plan for rehab upon discharge, will plan for reevaluation upon d/c from rehab to assess readiness to resume chemo tx attests: I performed a history and physical examination of this patient, developed impression and plan of care. Discussed with dictator. I agree with dictators note, documented as a scribe.
[2023-02-14] MEDS: NOREPINEPHRINE 8 MG in SODIUM CHLORIDE 0.9% 250 ML IV SCH (14:58)
--- NOTE | 2023-02-14 17:31 | P.PN ---
Subjective Progress Note Date: 02/14/23 The patient the seen at bedside and he is accompanied by his sister and his nephew. According to the nephew with the sedation is turned off he's following commands. Objective - Vital Signs Vital signs: Vital Signs Temp 96.7 F L 02/14/23 16:00 Pulse 91 02/14/23 17:00 Resp 22 02/14/23 17:00 BP 101/52 02/13/23 12:45 Pulse Ox 95 02/14/23 17:00 FiO2 40 02/14/23 16:00 Intake & Output 02/13/23 02/14/23 02/14/23 18:59 06:59 18:59 Intake Total 2134.256 2296.282 2245.142 Output Total 335 400 610 Balance 7258.580 9356.282 1635.142 Weight 79.4 kg 81.7 kg Intake: IV 1800 1800 1810 Sodium Chloride 0.9% 1, 1800 1800 1650 000 ml @ 150 mls/hr IV . Q6H40M ANDREW Rx#:[id number] pressure bags 60 propofoL 1,000 mg In 100 Empty Bag 1 bag @ 15 MCG/ KG/MIN 6.736 mls/hr IV . [id number] ANDREW Rx#:[id number] Intake, IV Titration 304.256 256.282 75.142 Amount Piperacillin-Tazobactam 3 100 .375 gm In Sodium Chloride 0.9% 100 ml @ 25 mls/hr IVPB Q8HR ANDREW Rx# :[id number] propofoL 1,000 mg In 204.256 256.282 75.142 Empty Bag 1 bag @ 15 MCG/ KG/MIN 6.736 mls/hr IV . [id number] ANDREW Rx#:[id number] Tube Feeding 30 150 270 Other 90 90 Output: Urine 335 400 610 Other: Voiding Method Indwelling Catheter Indwelling Catheter Indwelling Catheter ABP, PAP, CO, CI - Last Documented Arterial Blood Pressure 145/45 - Exam Intubated on ventilator. Neuro: Limited since on sedation (IV propofol 45mcg/kg/min) Patient is severely drowsy but will attempt to open his eyes to voice. He follows very minimal commands wiggling the toes Otherwise exam is very limited SOME OF THE WORK-UP DURING THIS HOSPITAL VISIT CONSISTED OF: Routine EEG is abnormal. The back is only suggestive of mild encephalopathy. Otherwise there is no focal slowing, epileptiform discharge or seizure on the EEG. CT of the head is reported as no acute intracranial process. - Labs CBC & Chem 7: 02/14/23 04:45 02/14/23 04:45 Labs: Abnormal Lab Results - Last 24 Hours (Table) 02/14/23 02/14/23 02/14/23 Range/Units 04:45 04:45 05:23 WBC 13.8 H (3.8-10.6) k/uL RBC 2.32 L (4.30-5.90) m/uL Hgb 8.2 L (13.0-17.5) gm/dL Hct 25.2 L (39.0-53.0) % MCV 108.7 H (80.0-100.0) fL MCH 35.3 H (25.0-35.0) pg RDW 18.6 H (11.5-15.5) % Neutrophils # 12.2 H (1.3-7.7) k/uL Lymphocytes # 0.8 L (1.0-4.8) k/uL Macrocytosis Marked A ABG pH (7.35-7.45) ABG pO2 (83-108) mmHg ABG HCO3 (21-25) mmol/L ABG O2 Saturation (94-97) % Chloride 119 H (98-107) mmol/L Carbon Dioxide 18 L (22-30) mmol/L Creatinine 1.67 H (0.66-1.25) mg/dL Glucose 104 H (74-99) mg/dL POC Glucose (mg/dL) 59 L (70-110) mg/dL Calcium 7.7 L (8.4-10.2) mg/dL 02/14/23 Range/Units 06:14 WBC (3.8-10.6) k/uL RBC (4.30-5.90) m/uL Hgb (13.0-17.5) gm/dL Hct (39.0-53.0) % MCV (80.0-100.0) fL MCH (25.0-35.0) pg RDW (11.5-15.5) % Neutrophils # (1.3-7.7) k/uL Lymphocytes # (1.0-4.8) k/uL Macrocytosis ABG pH 7.30 L (7.35-7.45) ABG pO2 157 H (83-108) mmHg ABG HCO3 18 L (21-25) mmol/L ABG O2 Saturation 99.6 H (94-97) % Chloride (98-107) mmol/L Carbon Dioxide (22-30) mmol/L Creatinine (0.66-1.25) mg/dL Glucose (74-99) mg/dL POC Glucose (mg/dL) (70-110) mg/dL Calcium (8.4-10.2) mg/dL Microbiology - Last 24 Hours (Table) 02/12/23 21:43 Gram Stain - Preliminary Sputum Sputum Culture - Preliminary Assessment and Plan Assessment: Cardaic arrest in our facility. Prolonged arrest of 36minutes. Had V-fib then subsequently sinus bradycrdia. Altered mental status due to Anoxic encephalopathy and medication effect (Propofol)---responding while off sedation Bradycardia (40-50's) Digoxin toxicity (3.1. Therapeutic is 0.8-2.0) Acute respiratory failure hypoxia due to cardiac arrest and the patient is intubated on mechanical ventilation B6 deficiency History of coronary artery disease status post stent History of chronic atrial fibrillation with previous unsuccessful cardioversion Ischemic cardiomyopathy with ejection fraction of 30-35% and is not a good candidate for AICD placement due to underlying malignancy History of pancreatic cancer that is recent History of obstructive jaundice due to pancreatic tumor with previous biliary sending Peripheral vascular disease [place] to thrive Type 2 diabetes Plan: Ordered ammonia level. Cardiology is on board. We'll defer the rest of the medical management to the primary ICU team and other specialists Condition is very guarded The plan is discussed with the patient's sister and nephew who are at bedside. Time with Patient: Less than 30
[2023-02-14 17:53] LABS: Glucose,Whole Blood 108 mg/dL (70-110)
[2023-02-14] MEDS: PRAVASTATIN SODIUM 20 MG TAB PO SCH (21:16)
[2023-02-14 21:29] LABS: Glucose,Whole Blood 106 mg/dL (70-110)
[2023-02-15] MEDS: PIPERACILLIN-TAZOBACTAM 3.375 GM in SODIUM CHLORIDE 0.9% 100 ML IVPB SCH ×4 (00:25→23:46)
[2023-02-15] MEDS: IPRATROPIUM-ALBUTEROL 3 ML NEB INHALATION SCH ×6 (00:50→21:41)
[2023-02-15] MEDS: SODIUM CHLORIDE 0.9% 1,000 ML IV SCH ×4 (03:30→23:15)
[2023-02-15 05:40] LABS: Anisocytosis Slight; Basophils % (A) 0 %; Eosinophils % (A) 0 %; HCT 23.4 % (39.0-53.0); HGB 7.5 gm/dL (13.0-17.5); Hypochromasia Slight; Lymphocytes # (A) 0.8 k/uL (1.0-4.8); Lymphocytes % (A) 8 %; MCH 33.8 pg (25.0-35.0); MCV 105.7 fL (80.0-100.0); Mean Platelet Volume 9.9; Monocytes # (A) 0.5 k/uL (0-1.0); Monocytes % (A) 5 %; Neutrophils # (A) 8.5 k/uL (1.3-7.7); Neutrophils % (A) 85 %; Platelet Count 134 k/uL (150-450); Poikilocytosis Marked; RBC 2.21 m/uL (4.30-5.90); RDW 19.1 % (11.5-15.5)
[2023-02-15 05:53] LABS: Calcium 7.5 mg/dL (8.4-10.2); Magnesium 1.8 mg/dL (1.6-2.3); Phosphorus 3.1 mg/dL (2.5-4.5); Potassium 3.6 mmol/L (3.5-5.1)
--- NOTE | 2023-02-15 06:08 | P.PN ---
Subjective Progress Note Date: 02/14/23 This is a pleasant 67 years old male with multiple medical problems who was admitted initially on 02/01 with shortness of breath and borderline blood pressure 105/78 thought secondary to A. fib and RVR as his heart rate was around 133. Patient has been able to by training development manager and his dose of metoprolol increased from 50 mg up to 100 mg and continued on digoxin 250 mg as well as he is on liquids 5 mg. Patient with recent history of pancreatic cancer diagnosed last September and his been having chronic abdominal pain in the epigastrium about 7/10 similar since then. He has some mouth sores and bicytopenia secondary to recent chemotherapy, oncology team on the case. He is kept nothing by mouth and TPN is running partially because of his mouth sores. He still have bouts of diarrhea but states that he started getting better today and more formed. C. diff is negative. Patient says that his weakness is better than last week, he fell 2 days ago, Cedergren was negative at that time. He is fully awake and oriented denies chest pain or dyspnea. He still feels generally weak and he still have abdominal pain as above. No urinary complaints. Vitas looks stable. Patient is afebrile. Hemoglobin 8.4 and platelet count improved to 83. CT of the abdomen and pelvis showing cholelithiasis with biliary stent in place and fluid distention of the colon was closed with diarrhea. Patient currently on D5 normal saline at 50 mL per hour and Eliquis 5 mg. We will check vitamin B12 and vitamin D. Also will check stool for elastase 02/09/2023 Patient pulled his PICC line accidentally today. Patient is not confused. Patient does swallow evaluation and I agree with starting him on liquid diet with advanced as tolerated. His mouth sores have resolved significantly and they are minimum in his examination today. His A. fib is in control on metoprolol higher dose 100 mg and Eliquis 5 mg BMP is a stable Check labs in the morning including platelet count and hemoglobin and BMP. Patient says that diarrhea has significantly improved. We still waiting for elastase to check for pancreatic function. 02/10/2023 Patient diarrhea has stopped, his heart rate and A. fib has been controlled which were the 2 main acute reasons he came into the hospital with. Patient still with chronic problems since last September including loss of energy, epigastric and upper abdominal pain and severe anorexia related to his cancer. Patient is open to go to rehab however his main problem is inability to eat very at Oncology team on the case. We checked vitamin B12 more than 3600 which is very high level above the limits therefore we discontinued his vitamin B12 pills Vitamin B6 is low last than 5 at 4. Therefore was set replacement therapy. 02/11/2023 Patient clinically is the same, no significant diarrhea, abdominal pain is chronic. Still has low appetite Today I have a discussion with the patient about his eating and anorexia and he is willing to try soft diet today. Therefore we don't advance his liquid diet until soft diet and keep monitoring The meantime we will hold Imodium so we can monitor his diarrhea. Discussed with staff to check for still elastase. Oncology team on the case 02/12/2023 Today patient developed cardiac arrest and CODE BLUE was called. He underwent CPR several rounds and had cardiac rhythm of V. fib and V. tach. Patient regained blood pressure and pulse rate, He is intubated and sedated and transferred to the ICU. Patient was examined at bedside during the code, EKG showing ischemic changes, rhythm is bradycardic and patient was hypotensive. Pulmonary/critical care team and cardiology team evaluated the patient Continue with amiodarone, normal saline, antibiotic with Zosyn. I discussed the case with cardiology team, patient is a known severe ischemic cardiomyopathy, he is not a candidate for cardiac cath, discussed the prognosis with oncology team is recommended. I discussed the case with the sister Halle over the phone who told me she is the next of kin, and there are no other family members to discuss the case with, the case was discussed with her in detail, hospital course as well as today's event are explained to her. She referred to his advance directive stating no extraheroic measures, she confirms to me he is DO NOT RESUSCITATE, also she would like to talk to hospice team. consult for hospice for information is placed Patient is a known pancreatic cancer case, with severe anorexia since September 2022 as he stated, with significant weight loss, patient did not eat this morning, confirmed with the bedside nurse. Status post 3 cycles of chemotherapy. Prognosis remains guarded, Also we will consult oncology team for prognosis. I discussed the case with the ICU bed side nurse, he has advanced directive and Halle is name as his medical advocate. 02/13/2023 Patient is seen in follow-up today currently intubated in the ICU on mechanical ventilation and FiO2 is 40% with a PEEP of 5. Multiple medical consultations including cardiology, pulmonary, oncology following. Patient was status post cardiac arrest in a hospice consult was placed although family does not want to pursue this at this time and are agreeable to no code. Follow-up labs pending and overall prognosis remains extremely guarded. Patient is undergoing sedation holidays to assess mentation and neurology was consulted with a brain CT and EEG ordered and pending. Patient is currently afebrile with no reported chest pain or shortness of breath. No plans for weaning today. 02/14/2023 Patient seen and evaluated in follow-up today continues to be on mechanical ventilation with multiple medical consultations following including neurology. CT brain showing no acute process an EEG continues to be abnormal although no epileptiform discharges noted. Patient undergoing sedation holidays and will follow commands. Pulmonary following and will continue monitor closely for weaning parameters. A.m. labs currently pending and will follow-up and recom mended replace electrolytes per protocol. Overall prognosis remains guarded at this time. Review of systems: Unable to obtain as patient is currently sedated Active Medications Hydrocodone Bitart/Acetaminophen (Hydrocodone/Apap 10-325mg 1 Each Tab) 1 each PO Q6HR PRN PRN Reason: Pain Last Admin: 02/14/23 10:43 Dose: 1 each Albuterol/Ipratropium (Ipratropium-Albuterol 3 Ml Neb) 3 ml INHALATION RT-Q4H [facility] Last Admin: 02/14/23 15:50 Dose: 3 ml Apixaban (Apixaban 5 Mg Tab) 5 mg PO BID [facility]; Protocol Last Admin: 02/14/23 08:34 Dose: 5 mg Chlorhexidine Gluconate (Chlorhexidine Gluconate 15 Ml Cup) 15 ml MUCOUS MEM BID [facility] Last Admin: 02/14/23 08:33 Dose: 15 ml Cholecalciferol (Cholecalciferol 25 Mcg (1000 Iu) Tablet) 50 mcg PO DAILY [facility] Last Admin: 02/14/23 08:34 Dose: 50 mcg Hydromorphone HCl (Hydromorphone 1 Mg/Ml 1 Ml Syringe) 1 mg IVP Q3HR PRN PRN Reason: Severe Pain (Scale 7 to 10) Last Admin: 02/10/23 10:00 Dose: 1 mg Propofol 1,000 mg/ IV Solution 100 mls @ 6.736 mls/hr IV .[id number] [facility]; Protocol Last Titration: 02/14/23 12:45 Dose: 45 mcg/kg/min, 20.208 mls/hr Norepinephrine Bitartrate 8 mg (/ Sodium Chloride) 258 mls @ 4.345 mls/hr IV .Q24H [facility]; Protocol Last Admin: 02/14/23 14:58 Dose: Not Given Sodium Chloride (Saline 0.9%) 1,000 mls @ 150 mls/hr IV .Q6H40M [facility] Last Admin: 02/14/23 15:08 Dose: 150 mls/hr Piperacillin Sod/Tazobactam (Sod 3.375 gm/ Sodium Chloride) 100 mls @ 25 mls/hr IVPB Q8HR [facility]; Protocol Last Admin: 02/14/23 15:09 Dose: 25 mls/hr Insulin Aspart (Insulin Aspart (Novolog) 100 Unit/Ml Vial) 0 unit SQ ACHS [facility]; Protocol Last Admin: 02/14/23 11:31 Dose: Not Given Naloxone HCl (Naloxone 0.4 Mg/Ml 1 Ml Vial) 0.2 mg IV Q2M PRN PRN Reason: Opioid Reversal Ondansetron HCl (Ondansetron 4 Mg/2 Ml Vial) 4 mg IVP Q8HR PRN PRN Reason: Nausea And Vomiting Pantoprazole Sodium (Pantoprazole 40 Mg/10 Ml Vial) 40 mg IV DAILY [facility] Last Admin: 02/14/23 08:33 Dose: 40 mg Pravastatin Sodium (Pravastatin Sodium 20 Mg Tab) 20 mg PO HS [facility] Last Admin: 02/13/23 21:57 Dose: 20 mg Pyridoxine HCl (Pyridoxine 50 Mg Tab) 50 mg PO BID [facility] Last Admin: 02/14/23 08:33 Dose: 50 mg Physical exam: GENERAL: The patient is intubated and sedated, undergoing sedation holidays and per nursing staff patient is following commands. FiO2 is 40% and PEEP is 5 HEENT: Pupils are round and equally reacting to light. EOMI. No scleral icterus. No conjunctival pallor. Normocephalic, atraumatic. No pharyngeal erythema. No thyromegaly. CARDIOVASCULAR: S1 and S2 muffled PULMONARY: Diminished breath sounds bilaterally with no wheezing and some rhonchi noted. Patient is not Tachypneic ABDOMEN: Soft, no rebound tenderness or guarding, nondistended, normoactive bowel sounds. No palpable organomegaly. MUSCULOSKELETAL: No joint swelling or deformity. EXTREMITIES: No cyanosis, clubbing, or pedal edema. NEUROLOGICAL: Unable to completely assess as patient is currently sedated SKIN: No rashes. no petechiae. Assessment: Status post cardiac arrest and CPR with return of spontaneous circulation, cardiac arrest while hospitalized Hypotension and bradycardia secondary to above Acute hypoxemic respiratory failure requiring intubation and mechanical ventilation A. fib and RVR, present on admission, currently rate is better controlled Pancreatic cancer status post chemotherapy Severe anorexia, since last September, most likely related to his cancer Chronic abdominal pain secondary to above. 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 Ischemic cardiomyopathy, with ejection fraction 30-35% Coronary artery disease status post RCA stent Chronic kidney disease stage III Biliary obstruction secondary to pancreatic cancer status post stent Ongoing diarrhea, improving No code Plan: Continue with ICU monitoring Patient on mechanical ventilation and FiO2 is 40% with a PEEP of 5 with pulmonary/critical care team Multiple medical consultations including cardiology and neurology following Continue with Pamsyn for concerns of aspiration pneumonia Patient is not requiring pressor support and undergoing sedation holiday and per nursing staff patient is awake and following commands appropriately, patient did become restless and increased blood pressure and patient was placed back on propofol and will continue with sedation holidays and monitoring for weaning parameters Oncology following as well as patient does have pancreatic cancer currently treatments are on hold Continue with Eliquis Recommend follow-up labs Prognosis is extremely guarded and poor. Family agreeable to be DO NOT RESUSCITATE, hospice team was consulted status post cardiac arrest and family would like to hold off on hospice at this time The impression and plan of care has been dictated by Jasmina Toledo, Nurse Practitioner as directed. Dr. Kade MD I have performed a history and examination and MDM of this patient, discussed the same with the dictator, and agree with the dictator's assessment and plan as written ,documented as a scribe. Based on total visit time, I have performed more than 50% of the visit. Objective - Vital Signs Vital signs: Vital Signs Temp 96.7 F L 02/14/23 16:00 Pulse 83 02/14/23 16:04 Resp 21 02/14/23 16:00 BP 101/52 02/13/23 12:45 Pulse Ox 100 02/14/23 16:00 FiO2 40 02/14/23 16:00 Intake & Output 02/13/23 02/14/23 02/14/23 18:59 06:59 18:59 Intake Total 2134.256 2296.282 1657.142 Output Total 335 400 480 Balance 5027.297 2394.282 1177.142 Weight 79.4 kg 81.7 kg Intake: IV 1800 1800 1342 Sodium Chloride 0.9% 1, 1800 1800 1200 000 ml @ 150 mls/hr IV . Q6H40M [facility] Rx#:[id number] pressure bags 42 propofoL 1,000 mg In 100 Empty Bag 1 bag @ 15 MCG/ KG/MIN 6.736 mls/hr IV . [id number] [facility] Rx#:[id number] Intake, IV Titration 304.256 256.282 75.142 Amount Piperacillin-Tazobactam 3 100 .375 gm In Sodium Chloride 0.9% 100 ml @ 25 mls/hr IVPB Q8HR [facility] Rx# :[id number] propofoL 1,000 mg In 204.256 256.282 75.142 Empty Bag 1 bag @ 15 MCG/ KG/MIN 6.736 mls/hr IV . [id number] [facility] Rx#:[id number] Tube Feeding 30 150 180 Other 90 60 Output: Urine 335 400 480 Other: Voiding Method Indwelling Catheter Indwelling Catheter Indwelling Catheter ABP, PAP, CO, CI - Last Documented Arterial Blood Pressure 131/43 - Labs CBC & Chem 7: 02/14/23 04:45 02/15/23 05:25 Labs: Abnormal Lab Results - Last 24 Hours (Table) 02/13/23 02/13/23 02/14/23 Range/Units 17:20 17:22 04:45 WBC 13.8 H (3.8-10.6) k/uL RBC 2.32 L (4.30-5.90) m/uL Hgb 8.2 L (13.0-17.5) gm/dL Hct 25.2 L (39.0-53.0) % MCV 108.7 H (80.0-100.0) fL MCH 35.3 H (25.0-35.0) pg RDW 18.6 H (11.5-15.5) % Neutrophils # 12.2 H (1.3-7.7) k/uL Lymphocytes # 0.8 L (1.0-4.8) k/uL Macrocytosis Marked A ABG pH (7.35-7.45) ABG pO2 (83-108) mmHg ABG HCO3 (21-25) mmol/L ABG O2 Saturation (94-97) % Chloride (98-107) mmol/L Carbon Dioxide (22-30) mmol/L Creatinine (0.66-1.25) mg/dL Glucose (74-99) mg/dL POC Glucose (mg/dL) 42 L 41 L (70-110) mg/dL Calcium (8.4-10.2) mg/dL 02/14/23 02/14/23 02/14/23 Range/Units 04:45 05:23 06:14 WBC (3.8-10.6) k/uL RBC (4.30-5.90) m/uL Hgb (13.0-17.5) gm/dL Hct (39.0-53.0) % MCV (80.0-100.0) fL MCH (25.0-35.0) pg RDW (11.5-15.5) % Neutrophils # (1.3-7.7) k/uL Lymphocytes # (1.0-4.8) k/uL Macrocytosis ABG pH 7.30 L (7.35-7.45) ABG pO2 157 H (83-108) mmHg ABG HCO3 18 L (21-25) mmol/L ABG O2 Saturation 99.6 H (94-97) % Chloride 119 H (98-107) mmol/L Carbon Dioxide 18 L (22-30) mmol/L Creatinine 1.67 H (0.66-1.25) mg/dL Glucose 104 H (74-99) mg/dL POC Glucose (mg/dL) 59 L (70-110) mg/dL Calcium 7.7 L (8.4-10.2) mg/dL Microbiology - Last 24 Hours (Table) 02/12/23 21:43 Gram Stain - Preliminary Sputum Sputum Culture - Preliminary
[2023-02-15 06:11] LABS: ABG Base Excess -7.4 mmol/L; ABG HCO3 19 mmol/L (21-25); ABG Oxygen Saturation 99.9 % (94-97); ABG PCO2 37 mmHg (35-45); ABG PH 7.32 (7.35-7.45); ABG PO2 179 mmHg (83-108); ABG TCO2 20 mmol/L (19-24); Allen Test Performed? Yes
[2023-02-15 06:15] LABS: Macrocytosis Marked
[2023-02-15] MEDS ORDERED: POTASSIUM BICARBONATE/CIT AC 20 MEQ TABLET.EFF NG-TUBE SCH (07:00)
[2023-02-15] MEDS: INSULIN ASPART (NovoLOG) 100 UNIT/ML VIAL SQ SCH ×4 (07:02→20:38)
--- NOTE | 2023-02-15 07:11 | XR ---
EXAMINATION TYPE: XR chest 1V portable DATE OF EXAM: 02/15/2023 6:23 AM COMPARISON: Chest radiographs from 02/14/2023 TECHNIQUE: XR chest 1V portable Frontal view of the chest. CLINICAL INDICATION:Male, 68 years old with history of Tube placement; FINDINGS: Lungs/Pleura: There is no evidence of pleural effusion, focal consolidation, or pneumothorax. Pulmonary vascularity: Unremarkable. Heart/mediastinum: Cardiomediastinal silhouette is unremarkable. Musculoskeletal: No acute osseous pathology. Other findings: None Lines/Tubes: Endotracheal tube with distal tip 3.0 cm above the ana. Nasogastric tube with its distal tip and side-port projecting under the diaphragm and projecting over the gastric lumen. Oylcro-[id number] projecting over the right hemithorax with distal tip at the cavoatrial junction. Left internal jugular central venous catheter with distal tip at the cavoatrial junction. IMPRESSION: Support lines and tubes in appropriate position.
[2023-02-15] MEDS ORDERED: MAGNESIUM SULFATE-D5W PMX 1 GM in DEXTROSE/WATER 1 100ML.BAG IVPB ONE (07:58)
--- NOTE | 2023-02-15 08:37 | P.PN ---
Subjective PROGRESS NOTE The patient is a 68-year-old male, who was admitted on January 31 with evidence of atrial fibrillation. He has a known history of CAD, post stenting of the RCA in 1996, severe ischemic cardiomyopathy, moderate mitral regurgitation, hyp ertension hyperlipidemia and peripheral vascular disease who was being evaluated to undergo an ICD implant that was canceled because of a diagnosis of pancreatic cancer. The patient has lost a lot of weight and has not been able to eat. According to the nursing staff he was relatively stable when he went into ventricular tachycardia and had a cardiac arrest requiring a prolonged CPR with subsequent christianity of sinus mechanism after receiving multiple shocks, epinephrine and amiodarone. According to the note patient has been having severe abdominal pain and had been unable to eat or drink. He was seen in the ICU, intubated and sedated. Over the last few days the patient had episode of bradycardia and pauses. 02/13 Patient seen and examined. Patient remains intubated and sedated on ventilator. PEEP of 5 and FiO2 50%. Blood pressures 110s over 50s off of any vasopressors. Remains sedated. Intermittent bradycardia heart rates in the 40s and 50s and intermittent second-degree blocks. Amio drip was stopped secondary to bradycardia. 02/14 Patient seen and examined. Patient off of any vasopressors and remains sedated on propofol. Amiodarone drip was discontinued secondary to bradycardia. No significant ventricular ectopy. On ventilator with a FiO2 40% and PEEP of 5. R eceiving IV fluids at 150 mL per hour. 02/15 Patient seen and examined. Patient is intubated and sedated. Attempts at weaning patient from sedation yesterday with some following commands however had problems weaning sedation. Remains on propofol. FiO2 40% with a PEEP of 5. Blood pressure is borderline elevated. Currently sinus rhythm with occasional pauses. PHYSICAL EXAMINATION: Vitals reviewed LUNGS: Clear to auscultation HEART: Rregular rate and rhythm, S1, S2. No S3. systolic ejection murmur ABDOMEN: Soft, positive bowel sounds, no organomegaly EXTREMETIES: No edema IMPRESSION: 1. Cardiac arrest with recurrent ventricular fibrillation and tachycardia requiring CPR 2. Known history of severe ischemic cardiomyopathy 3. Known history of CAD status post stenting of the RCA in 1996 4. Pancreatic cancer 5. Poor by mouth intake with severe weight loss 6. Anemia 7. Elevated digoxin level PLAN: Continue with current supportive care. Wean sedation as able. Hopeful extubati on and monitor neurologic progress. Further recommendations pending patient's recovery. Objective - Vital Signs Vital signs: Vital Signs Temp 97.1 F L 02/15/23 04:00 Pulse 93 02/15/23 07:00 Resp 16 02/15/23 07:00 BP 101/52 02/13/23 12:45 Pulse Ox 99 02/15/23 07:00 FiO2 40 02/15/23 07:48 Intake & Output 02/14/23 02/15/23 02/15/23 18:59 06:59 18:59 Intake Total 2532.182 2532.589 190 Output Total 660 560 300 Balance 4298.573 0151.589 -110 Intake: IV 1966 1826 150 Sodium Chloride 0.9% 1, 1800 1800 150 000 ml @ 150 mls/hr IV . Q6H40M [facility] Rx#:[id number] pressure bags 66 26 propofoL 1,000 mg In 100 Empty Bag 1 bag @ 15 MCG/ KG/MIN 6.736 mls/hr IV . [id number] [facility] Rx#:[id number] Intake, IV Titration 176.182 246.589 Amount propofoL 1,000 mg In 176.182 246.589 Empty Bag 1 bag @ 15 MCG/ KG/MIN 6.736 mls/hr IV . [id number] [facility] Rx#:[id number] Tube Feeding 300 370 40 Other 90 90 Output: Urine 660 560 300 Other: Voiding Method Indwelling Catheter Indwelling Catheter ABP, PAP, CO, CI - Last Documented Arterial Blood Pressure 147/43 - Labs CBC & Chem 7: 02/15/23 05:25 02/15/23 05:25 Labs: Abnormal Lab Results - Last 24 Hours (Table) 02/15/23 02/15/23 02/15/23 Range/Units 05:25 05:25 06:05 RBC 2.21 L (4.30-5.90) m/uL Hgb 7.5 L (13.0-17.5) gm/dL Hct 23.4 L (39.0-53.0) % MCV 105.7 H (80.0-100.0) fL RDW 19.1 H (11.5-15.5) % Plt Count 134 L (150-450) k/uL Neutrophils # 8.5 H (1.3-7.7) k/uL Lymphocytes # 0.8 L (1.0-4.8) k/uL Macrocytosis Marked A ABG pH 7.32 L (7.35-7.45) ABG pO2 179 H (83-108) mmHg ABG HCO3 19 L (21-25) mmol/L ABG O2 Saturation 99.9 H (94-97) % Chloride 121 H (98-107) mmol/L Carbon Dioxide 19 L (22-30) mmol/L Creatinine 1.76 H (0.66-1.25) mg/dL Glucose 104 H (74-99) mg/dL Calcium 7.5 L (8.4-10.2) mg/dL Microbiology - Last 24 Hours (Table) 02/12/23 21:43 Gram Stain - Preliminary Sputum Sputum Culture - Preliminary
[2023-02-15] MEDS: HYDROcodone/APAP 10-325MG 1 EACH TAB PO PRN ×2 (08:55→20:29)
[2023-02-15] MEDS: APIXABAN 5 MG TAB PO SCH ×2 (08:55→20:29)
[2023-02-15] MEDS: PANTOPRAZOLE 40 MG/10 ML VIAL IV SCH (08:55)
[2023-02-15] MEDS: CHLORHEXIDINE GLUCONATE 15 ML CUP MUCOUS MEM SCH (08:55)
[2023-02-15] MEDS: CHOLECALCIFEROL 25 MCG (1000 IU) TABLET PO SCH (08:56)
[2023-02-15] MEDS: PYRIDOXINE 50 MG TAB PO SCH ×2 (08:56→20:30)
[2023-02-15 12:09] LABS: ABG Base Excess -7.1 mmol/L; ABG HCO3 19 mmol/L (21-25); ABG Oxygen Saturation 99.8 % (94-97); ABG PCO2 37 mmHg (35-45); ABG PH 7.32 (7.35-7.45); ABG PO2 157 mmHg (83-108); ABG TCO2 20 mmol/L (19-24)
[2023-02-15 12:10] LABS: Allen Test Performed? no
[2023-02-15] MEDS ORDERED: IPRATROPIUM-ALBUTEROL 3 ML NEB INHALATION PRN (12:32)
[2023-02-15 12:37] LABS: Glucose,Whole Blood 114 mg/dL (70-110)
[2023-02-15] MEDS: NOREPINEPHRINE 8 MG in SODIUM CHLORIDE 0.9% 250 ML IV SCH (13:44)
[2023-02-15] MEDS: METOPROLOL TARTRATE 50 MG TAB PO SCH ×2 (14:03→20:29)
[2023-02-15] MEDS: ISOSORBIDE MONONITRATE ER 30 MG TAB.ER.24H PO SCH (14:03)
--- NOTE | 2023-02-15 14:42 | P.PN ---
Subjective Progress Note Date: 02/15/23 Principal diagnosis: Cardiac arrest with acute hypoxic respiratory failure 68-year-old male patient with an extensive cardiac disease, coronary artery disease, chronic atrial fibrillation and severe ischemic cardiomyopathy in addition to a recent diagnosis of a pancreatic cancer. The patient was has less for A. fib RVR. Earlier this morning, the patient went into cardiac arrest. DRAGAN GARCIA was called at 1131. The patient was immediately resuscitated based on the ACLS protocol. Initial rhythm was ventricular fibrillation with no pulse. Total code time was approximately 36 minutes. Throughout the code, patient had received 6 shocks, initial joules were 150, then escalated to 200 J. Patient received a 300 mg amiodarone bolus, then proceeded 150 mg amiodarone bolus. Patient received multiple pushes of epinephrine. Patient also received 2 g of magnesium sulfate, 1 g of calcium chloride. Patient had return of spontaneous circulation for the first time at 1152, was noted to be in junctional bradycardia and received one push of atropine 1156, loss pulse again and went into V. fib 1157 with CPR resumed. Patient was shocked again for the 6 time at 1158, received 1 g calcium. He again had return of spontaneous circulation 1159 with a pulse, rhythm was junctional rhythm with a heart rate of 57. Patient's blood pressure was cycled and noted to be 172/118. Case was discussed content production specialist english division chair, given patient's metastatic cancer, recent 100 pound weight loss, patient did not appear to be a good candidate for reperfusion in the Imaging Clerk. After discussion with exercise scientist, patient was transferred to the intensive care unit for further monitoring. Patient's family was notified by nursing. Patient's attending was also present throughout the code, and signout was given to him upon transfer to the intensive care unit. At this point in time, the patient is intubated on a mechanical ventilator. He is on a propofol running at 40 microvascular kilogram per minutes. Is on assist-control mode of mechanical ventilation at the rate of 16, tidal volume of 400, FiO2 wasn't 100% with PEEP of 5. The initial blood gas showed a pH of 7.22 with a pCO2 of 30 and pO2 more than 400. FiO2 is being weaned. Chest x-ray showed ET tube being in a good location. The patient has a port over the right anterior chest. There is increased opacity around the right perihilar area. The patient currently is hypotensive. The patient is receiving a bolus of nor mal saline 1 L. Blood work is still pending for now. The blood work from yesterday was noted and the patient has a WBC count 9.6 with a hemoglobin of 9.7. Electrolytes are all within normal limits. Normal renal function. His most recent cardiac rhythm is sinus bradycardia with first-degree AV block. The patient was started on amiodarone per cardiology recommendation currently running at 1 mg/m. He is on anticoagulation with Eliquis 5 mg by mouth twice a day. He is also supposed to be on metoprolol which is currently on hold. The patient had a triple-lumen catheter and arterial line catheter inserted in the ICU. He looks very marked emaciated and cachectic Reevaluated today on02/13/2023, patient remains in the ICU intubated and mechanically ventilated. He is on assist control rate of 16 volume 400 FiO2 50% PEEP of 5 ABG showed a pO2 of 215 pCO2 35 pH of 7.38 patient is on propofol at 45 mcg/kg/m, he is also on IV fluid 0.9 normal saline at 1 50 mL per hour. Patient is on Zosyn empirically, neurology consultation is pending, patient had a cardiac arrest and his down time was 36 minutes. Not to mention the patient has underlying metastatic pancreatic carcinoma. His FiO2 was cut down to 40% after reviewing his ABG. Chest x-ray showed, minimal right lower lobe opacity could be atelectasis or could be aspiration pneumonia in nature. WBC count today is 10.4 hemoglobin is 8.6 electrode start normal however his creatinine is 1.31, baseline creatinine prior to the cardiac arrest was 0.890. Patient remains on eliquis, he is also on Zosyn. And his IV fluid is 0.9 normal saline at 1 50 mL per hour. Patient is receiving Protonix for GI prophylaxis. And he will be started on enteral feeding today. Luckily the patient is hemodynamically stable, not requiring any pressors at this point. Nonetheless he is critically ill. And I have advised holding propofol and assess mental status today. Seen by neurology on consultation, CT of the head and EEG are pending. Looking back at his digitoxin level was noted to be elevated 3.1, and that is being addressed by cardiology. Reevaluated today on 02/14/2023, patient remains in the ICU, intubated and mechanically ventilated. Patient is on assist control rate of 16 tidal volume 400 FiO2 40% and PEEP of 5 ABG showed a pO2 of 157 pCO2 36 pH of 7.30 hence we'll decrease FiO2 to 35%. Otherwise no change in ventilator settings. Patient is receiving propofol at 45 mg/kg/m, also receiving IV fluid at 1 50 mL per hour. Vital Hp at 20 mL per hour. Brain CT showed no acute intracranial process chest x-ray showed vague density at the right lung base, possibly atelectasis, or could be early infiltrate/aspiration. Labs today WBC count of 13.8 hemoglobin is 8.2, basic metabolic profile is normal bicarb is 18, patient has hyperchloremic non-anion gap metabolic acidosis. BUN is 14 creatinine 1.67 on slightly worse compared to yesterday. Patient remains on Zosyn empirically, he is also on bronchodilators, and on GI and DVT prophylaxis. Receiving eliquis 5 mg twice a day and is also on pantoprazole Reevaluated today on 02/15/2023, patient remains in the ICU, intubated and mechanically ventilated. Patient is on assist control rate of 16 tidal volume 400 FiO2 40% PEEP of 5. ABG showed a pO2 of 179 pCO2 37 pH of 7.32. Patient remains on IV fluid 0.9 normal saline at 1 50 mL/h propofol at 40 mcg/kg/m vital Hb at 48 mL per hour. Remains empirically on Zosyn for presumptive aspiration pneumonia. After ABG was noted I cut down his FiO2 to 35%, I recommended holding propofol, and should give the patient at least weaning trial if he passes his weaning parameters. WBC count today is 10 hemoglobin is 7.5. Platelets are 1 34,000 ABG on pressure support mode of mechanical ventilation showed a pO2 of 157 pCO2 37 pH of 7.32 renal functioning seems to be a bit worse today, BUN is up to 16 and creatinine up to 1.76, I believe the patient may have sustained acute tubular necrosis from his cardiac arrest Objective - Vital Signs Vital signs: Vital Signs Temp 98 F 02/15/23 12:00 Pulse 96 02/15/23 12:00 Resp 17 02/15/23 12:00 BP 101/52 02/13/23 12:45 Pulse Ox 99 02/15/23 12:00 FiO2 40 02/15/23 12:00 Intake & Output 02/14/23 02/15/23 02/15/23 18:59 06:59 18:59 Intake Total 2532.182 2532.589 1892.659 Output Total 185 206 5047 Balance 4679.095 6154.589 882.659 Weight 87.8 kg Intake: IV 1966 1826 1200 Sodium Chloride 0.9% 1, 1800 1800 1200 000 ml @ 150 mls/hr IV . [id number] [facility] Rx#:[id number] pressure bags 66 26 propofoL 1,000 mg In 100 Empty Bag 1 bag @ 15 MCG/ KG/MIN 6.736 mls/hr IV . [id number] [facility]REW Rx#:[id number] Intake, IV Titration 176.182 246.589 572.659 Amount Magnesium Sulfate-D5w Pmx 100 1 gm In Dextrose/Water 1 100ml.bag @ 100 mls/hr IVPB ONCE ONE Rx#: [id number] Norepinephrine 8 mg In 258 Sodium Chloride 0.9% 250 ml @ 0.03 MCG/KG/MIN 4. 345 mls/hr IV .Q24H REPLACED BY [facility] Rx#:[id number] Piperacillin-Tazobactam 3 100 .375 gm In Sodium Chloride 0.9% 100 ml @ 25 mls/hr IVPB Q8HR REPLACED BY [facility] Rx# :[id number] propofoL 1,000 mg In 176.182 246.589 114.659 Empty Bag 1 bag @ 15 MCG/ KG/MIN 6.736 mls/hr IV . [id number] [facility]REW Rx#:[id number] Tube Feeding 300 370 120 Other 90 90 Output: Urine 530 383 9216 Other: Voiding Method Indwelling Catheter Indwelling Catheter Indwelling Catheter ABP, PAP, CO, CI - Last Documented Arterial Blood Pressure 166/51 - Exam Physical Exam: Revealed a 68-year-old white male in no distress, intubated mechanically ventilated. On propofol which I plan to discontinue and addressed mental status and possibly weaning Head: Atraumatic normocephalic. HEENT:[Neck is supple.] [No neck masses.] [No thyromegaly.] [No JVD.] Pupils seem to be pinpoint. Bilaterally. Chest: [Clear throughout, no crackles, no rhonchi, no wheezes.] Cardiac Exam: [Irregular irregular rhythm. Normal S1 and S2, no S3 gallop, 2/6 systolic ejection murmur throughout the precordium. Abdomen: [Soft, nontender, no megaly, no rebound, no guarding, normal bowel sounds.] Extremities: [No clubbing, no edema, no cyanosis.] Neurological Exam: Off propofol, patient was noted to be appropriate, follows simple instructions, and no gross focal deficits. Psychiatric: Depressed mood and flat affect, normal mental status follows instr uctions Skin: No rashes - Labs CBC & Chem 7: 02/15/23 05:25 02/15/23 05:25 Labs: Abnormal Lab Results - Last 24 Hours (Table) 02/15/23 02/15/23 02/15/23 Range/Units 05:25 05:25 06:05 RBC 2.21 L (4.30-5.90) m/uL Hgb 7.5 L (13.0-17.5) gm/dL Hct 23.4 L (39.0-53.0) % MCV 105.7 H (80.0-100.0) fL RDW 19.1 H (11.5-15.5) % Plt Count 134 L (150-450) k/uL Neutrophils # 8.5 H (1.3-7.7) k/uL Lymphocytes # 0.8 L (1.0-4.8) k/uL Macrocytosis Marked A ABG pH 7.32 L (7.35-7.45) ABG pO2 179 H (83-108) mmHg ABG HCO3 19 L (21-25) mmol/L ABG O2 Saturation 99.9 H (94-97) % Chloride 121 H (98-107) mmol/L Carbon Dioxide 19 L (22-30) mmol/L Creatinine 1.76 H (0.66-1.25) mg/dL Glucose 104 H (74-99) mg/dL POC Glucose (mg/dL) (70-110) mg/dL Calcium 7.5 L (8.4-10.2) mg/dL 02/15/23 02/15/23 Range/Units 12:06 12:35 RBC (4.30-5.90) m/uL Hgb (13.0-17.5) gm/dL Hct (39.0-53.0) % MCV (80.0-100.0) fL RDW (11.5-15.5) % Plt Count (150-450) k/uL Neutrophils # (1.3-7.7) k/uL Lymphocytes # (1.0-4.8) k/uL Macrocytosis ABG pH 7.32 L (7.35-7.45) ABG pO2 157 H (83-108) mmHg ABG HCO3 19 L (21-25) mmol/L ABG O2 Saturation 99.8 H (94-97) % Chloride (98-107) mmol/L Carbon Dioxide (22-30) mmol/L Creatinine (0.66-1.25) mg/dL Glucose (74-99) mg/dL POC Glucose (mg/dL) 114 H (70-110) mg/dL Calcium (8.4-10.2) mg/dL Microbiology - Last 24 Hours (Table) 02/12/23 21:43 Gram Stain - Final Sputum Sputum Culture - Final Assessment and Plan Assessment: Impression: Acute hypoxic respiratory failure secondary to cardiac arrest with recurrent ventricular fibrillation and tachycardia requiring CPR, down time was about 36 m inutes. Possible anoxic brain injury , however yesterday the patient was following simple instructions off sedation and we'll try to assess mental status again today off sedation. possible right lower lobe aspiration pneumonia Severe ischemic cardiomyopathy and LV dysfunction Underlying coronary artery disease and previous stenting of RCA in 1996 Pancreatic cancer Severe weight loss secondary to pancreatic malignancy Chronic anemia Chronic atrial fibrillation, previous unsuccessful cardioversions History of obstructive jaundice secondary to pancreatic cancer and requiring biliary stenting Benign essential hypertension Severe cachexia/protein calorie malnutrition secondary to pancreatic malignancy Failure to thrive secondary to pancreatic cancer Peripheral vessel occlusive disease Type 2 diabetes without complications Acute digoxin toxicity, resolved. Recommendation: Continue ventilatory support however I plan to give the patient a weaning trial on pressure support and CPAP after checking his weaning parameters. Continue fluids 0.9 normal saline at 1 50 mL per hour Continue nutritional support/enteral feeding, hold enteral feeding via nasogastric tube and the patient is extubated today. Continue Zosyn for possible aspiration pneumonia Continue GI and DVT prophylaxis Prognosis is relatively guarded. Remains critically ill. We'll try weaning trial today, and if the patient passes his weaning trial, may extubate. We'll continue to follow. Critical care time is over 30 minutes. Time with Patient: Greater than 30
--- NOTE | 2023-02-15 15:37 | P.PN ---
Subjective Progress Note Date: 02/15/23 This is a pleasant 67 years old male with multiple medical problems who was admitted initially on 02/01 with shortness of breath and borderline blood pressure 105/78 thought secondary to A. fib and RVR as his heart rate was around 133. Patient has been able to by interpretive program coordinator and his dose of metoprolol increased from 50 mg up to 100 mg and continued on digoxin 250 mg as well as he is on liquids 5 mg. Patient with recent history of pancreatic cancer diagnosed last September and his been having chronic abdominal pain in the epigastrium about 7/10 similar since then. He has some mouth sores and bicytopenia secondary to recent chemotherapy, oncology team on the case. He is kept nothing by mouth and TPN is running partially because of his mouth sores. He still have bouts of diarrhea but states that he started getting better today and more formed. C. diff is negative. Patient says that his weakness is better than last week, he fell 2 days ago, Cedergren was negative at that time. He is fully awake and oriented denies chest pain or dyspnea. He still feels generally weak and he still have abdominal pain as above. No urinary complaints. Vitas looks stable. Patient is afebrile. Hemoglobin 8.4 and platelet count improved to 83. CT of the abdomen and pelvis showing cholelithiasis with biliary stent in place and fluid distention of the colon was closed with diarrhea. Patient currently on D5 normal saline at 50 mL per hour and Eliquis 5 mg. We will check vitamin B12 and vitamin D. Also will check stool for elastase 02/09/2023 Patient pulled his PICC line accidentally today. Patient is not confused. Patient does swallow evaluation and I agree with starting him on liquid diet with advanced as tolerated. His mouth sores have resolved significantly and they are minimum in his examination today. His A. fib is in control on metoprolol higher dose 100 mg and Eliquis 5 mg BMP is a stable Check labs in the morning including platelet count and hemoglobin and BMP. Patient says that diarrhea has significantly improved. We still waiting for elastase to check for pancreatic function. 02/10/2023 Patient diarrhea has stopped, his heart rate and A. fib has been controlled which were the 2 main acute reasons he came into the hospital with. Patient still with chronic problems since last September including loss of energy, epigastric and upper abdominal pain and severe anorexia related to his cancer. Patient is open to go to rehab however his main problem is inability to eat very at Oncology team on the case. We checked vitamin B12 more than 3600 which is very high level above the limits therefore we discontinued his vitamin B12 pills Vitamin B6 is low last than 5 at 4. Therefore was set replacement therapy. 02/11/2023 Patient clinically is the same, no significant diarrhea, abdominal pain is chronic. Still has low appetite Today I have a discussion with the patient about his eating and anorexia and he is willing to try soft diet today. Therefore we don't advance his liquid diet until soft diet and keep monitoring The meantime we will hold Imodium so we can monitor his diarrhea. Discussed with staff to check for still elastase. Oncology team on the case 02/12/2023 Today patient developed cardiac arrest and CODE BLUE was called. He underwent CPR several rounds and had cardiac rhythm of V. fib and V. tach. Patient regained blood pressure and pulse rate, He is intubated and sedated and transferred to the ICU. Patient was examined at bedside during the code, EKG showing ischemic changes, rhythm is bradycardic and patient was hypotensive. Pulmonary/critical care team and cardiology team evaluated the patient Continue with amiodarone, normal saline, antibiotic with Zosyn. I discussed the case with cardiology team, patient is a known severe ischemic cardiomyopathy, he is not a candidate for cardiac cath, discussed the prognosis with oncology team is recommended. I discussed the case with the sister Halle over the phone who told me she is the next of kin, and there are no other family members to discuss the case with, the case was discussed with her in detail, hospital course as well as today's event are explained to her. She referred to his advance directive stating no extraheroic measures, she confirms to me he is DO NOT RESUSCITATE, also she would like to talk to hospice team. consult for hospice for information is placed Patient is a known pancreatic cancer case, with severe anorexia since September 2022 as he stated, with significant weight loss, patient did not eat this morning, confirmed with the bedside nurse. Status post 3 cycles of chemotherapy. Prognosis remains guarded, Also we will consult oncology team for prognosis. I discussed the case with the ICU bed side nurse, he has advanced directive and Halle is name as his medical advocate. 02/13/2023 Patient is seen in follow-up today currently intubated in the ICU on mechanical ventilation and FiO2 is 40% with a PEEP of 5. Multiple medical consultations including cardiology, pulmonary, oncology following. Patient was status post cardiac arrest in a hospice consult was placed although family does not want to pursue this at this time and are agreeable to no code. Follow-up labs pending and overall prognosis remains extremely guarded. Patient is undergoing sedation holidays to assess mentation and neurology was consulted with a brain CT and EEG ordered and pending. Patient is currently afebrile with no reported chest pain or shortness of breath. No plans for weaning today. 02/14/2023 Patient seen and evaluated in follow-up today continues to be on mechanical ventilation with multiple medical consultations following including neurology. CT brain showing no acute process an EEG continues to be abnormal although no epileptiform discharges noted. Patient undergoing sedation holidays and will follow commands. Pulmonary following and will continue monitor closely for weaning parameters. A.m. labs currently pending and will follow-up and recom mended replace electrolytes per protocol. Overall prognosis remains guarded at this time. 02/15/2023 Patient is seen this morning in the ICU continues on mechanical ventilation with consideration of weaning and tolerating sedation holidays. Patient currently on vent with an FiO2 of 40% and PEEP is 5. Chest x-rays this morning shows no evidence of pleural effusion or pneumothorax and support lines in appropriate position. Patient also continues on IV Zosyn empirically with concerns of aspir ation pneumonia. White count is normal at 10 him a hemoglobin is 7.5, platelets are 134, sodium 145 with a potassium of 3.6 and creatinine is currently 1.76, magnesium is 1.8 and being replaced currently. Review of systems: Unable to obtain as patient is currently sedated Active Medications Hydrocodone Bitart/Acetaminophen (Hydrocodone/Apap 10-325mg 1 Each Tab) 1 each PO Q6HR PRN PRN Reason: Pain Last Admin: 02/15/23 08:55 Dose: 1 each Albuterol/Ipratropium (Ipratropium-Albuterol 3 Ml Neb) 3 ml INHALATION RT-QID ANDREW Albuterol/Ipratropium (Ipratropium-Albuterol 3 Ml Neb) 3 ml INHALATION RT-Q2H PRN PRN Reason: Shortness Of Breath Or Wheezing Apixaban (Apixaban 5 Mg Tab) 5 mg PO BID [facility]; Protocol Last Admin: 02/15/23 08:55 Dose: 5 mg Cholecalciferol (Cholecalciferol 25 Mcg (1000 Iu) Tablet) 50 mcg PO DAILY [facility] Last Admin: 02/15/23 08:56 Dose: 50 mcg Hydromorphone HCl (Hydromorphone 1 Mg/Ml 1 Ml Syringe) 1 mg IVP Q3HR PRN PRN Reason: Severe Pain (Scale 7 to 10) Last Admin: 02/10/23 10:00 Dose: 1 mg Propofol 1,000 mg/ IV Solution 100 mls @ 6.736 mls/hr IV .[id number] [facility]; Protocol Last Titration: 02/15/23 11:45 Dose: 0 mcg/kg/min, 0 mls/hr Norepinephrine Bitartrate 8 mg (/ Sodium Chloride) 258 mls @ 4.345 mls/hr IV .Q24H [facility]; Protocol Last Admin: 02/15/23 13:44 Dose: Not Given Sodium Chloride (Saline 0.9%) 1,000 mls @ 150 mls/hr IV .Q6H40M [facility] Last Admin: 02/15/23 14:04 Dose: 150 mls/hr Piperacillin Sod/Tazobactam (Sod 3.375 gm/ Sodium Chloride) 100 mls @ 25 mls/hr IVPB Q8HR [facility]; Protocol Last Admin: 02/15/23 14:03 Dose: 25 mls/hr Insulin Aspart (Insulin Aspart (Novolog) 100 Unit/Ml Vial) 0 unit SQ ACHS [facility]; Protocol Last Admin: 02/15/23 12:39 Dose: Not Given Isosorbide Mononitrate (Isosorbide Mononitrate Er 30 Mg Tab.Er.24h) 30 mg PO DAILY [facility] Last Admin: 02/15/23 14:03 Dose: 30 mg Metoprolol Tartrate (Metoprolol Tartrate 50 Mg Tab) 100 mg PO DAILY [facility] Last Admin: 02/15/23 14:03 Dose: 100 mg Metoprolol Tartrate (Metoprolol Tartrate 50 Mg Tab) 50 mg PO HS [facility] Naloxone HCl (Naloxone 0.4 Mg/Ml 1 Ml Vial) 0.2 mg IV Q2M PRN PRN Reason: Opioid Reversal Ondansetron HCl (Ondansetron 4 Mg/2 Ml Vial) 4 mg IVP Q8HR PRN PRN Reason: Nausea And Vomiting Pantoprazole Sodium (Pantoprazole 40 Mg/10 Ml Vial) 40 mg IV DAILY [facility] Last Admin: 02/15/23 08:55 Dose: 40 mg Pravastatin Sodium (Pravastatin Sodium 20 Mg Tab) 20 mg PO HS [facility] Last Admin: 02/14/23 21:16 Dose: 20 mg Pyridoxine HCl (Pyridoxine 50 Mg Tab) 50 mg PO BID [facility] Last Admin: 02/15/23 08:56 Dose: 50 mg Physical exam: GENERAL: The patient is intubated and sedated, undergoing sedation holidays and per nursing staff patient is following commands. FiO2 is 40% and PEEP is 5 HEENT: Pupils are round and equally reacting to light. EOMI. No scleral icterus. No conjunctival pallor. Normocephalic, atraumatic. No pharyngeal erythema. No thyromegaly. CARDIOVASCULAR: S1 and S2 muffled PULMONARY: Diminished breath sounds bilaterally with no wheezing and some rhonchi noted. Patient is not Tachypneic ABDOMEN: Soft, no rebound tenderness or guarding, nondistended, normoactive bowel sounds. No palpable organomegaly. MUSCULOSKELETAL: No joint swelling or deformity. EXTREMITIES: No cyanosis, clubbing, or pedal edema. NEUROLOGICAL: Unable to completely assess as patient is currently sedated SKIN: No rashes. no petechiae. Assessment: Status post cardiac arrest and CPR with return of spontaneous circulation, cardiac arrest while hospitalized and down time was approximately 36 minutes Hypotension and bradycardia secondary to above, improving Acute hypoxemic respiratory failure requiring intubation and mechanical ventilation Possible right lower lobe aspiration pneumonia A. fib and RVR, present on admission, currently rate is better controlled Pancreatic cancer status post chemotherapy Severe anorexia, since last September, most likely related to his cancer Chronic abdominal pain secondary to above. 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 Severe Ischemic cardiomyopathy, with ejection fraction 30-35% Coronary artery disease status post RCA stent Chronic kidney disease stage III Biliary obstruction secondary to pancreatic cancer status post stent Ongoing diarrhea, improving No code Plan: Continue with ICU monitoring and patient was extubated successfully currently maintained on 3 L via nasal cannula with oxygen saturations above 97% Patient is awake and appropriately responding to questions and commands and tolerated oral intake, will resume oral medications and recommend monitor closely for aspiration precautions Multiple medical consultations including cardiology and neurology following Continue with Zosyn for concerns of aspiration pneumonia Oncology following as well as patient does have pancreatic cancer currently treatments are on hold Continue with Elidignais Recommend follow-up labs Will need PT/OT therapy evaluation Prognosis remains extremely guarded at this time. Family agreeable to be DO NOT RESUSCITATE The impression and plan of care has been dictated by Jasmina Toledo, Nurse Practitioner as directed. Dr. Kade MD I have performed a history and examination and MDM of this patient, discussed the same with the dictator, and agree with the dictator's assessment and plan as written ,documented as a scribe. Based on total visit time, I have performed more than 50% of the visit. Objective - Vital Signs Vital signs: Vital Signs Temp 98 F 02/15/23 12:00 Pulse 116 H 02/15/23 14:00 Resp 30 H 02/15/23 14:00 BP 101/52 02/13/23 12:45 Pulse Ox 100 02/15/23 14:00 FiO2 40 02/15/23 12:00 Intake & Output 02/14/23 02/15/23 02/15/23 18:59 06:59 18:59 Intake Total 2532.182 2532.589 2042.659 Output Total 750 561 9988 Balance 8709.579 2304.589 882.659 Weight 87.8 kg Intake: IV 1966 1826 1350 Sodium Chloride 0.9% 1, 1800 1800 1350 000 ml @ 150 mls/hr IV . Q6H40M ANDREW Rx#:[id number] pressure bags 66 26 propofoL 1,000 mg In 100 Empty Bag 1 bag @ 15 MCG/ KG/MIN 6.736 mls/hr IV . [id number] ANDREW Rx#:[id number] Intake, IV Titration 176.182 246.589 572.659 Amount Magnesium Sulfate-D5w Pmx 100 1 gm In Dextrose/Water 1 100ml.bag @ 100 mls/hr IVPB ONCE ONE Rx#: [id number] Norepinephrine 8 mg In 258 Sodium Chloride 0.9% 250 ml @ 0.03 MCG/KG/MIN 4. 345 mls/hr IV .Q24H ANDREW Rx#:[id number] Piperacillin-Tazobactam 3 100 .375 gm In Sodium Chloride 0.9% 100 ml @ 25 mls/hr IVPB Q8HR ANDREW Rx# :[id number] propofoL 1,000 mg In 176.182 246.589 114.659 Empty Bag 1 bag @ 15 MCG/ KG/MIN 6.736 mls/hr IV . [id number] ANDREW Rx#:[id number] Tube Feeding 300 370 120 Other 90 90 Output: Urine 770 437 8199 Other: Voiding Method Indwelling Catheter Indwelling Catheter Indwelling Catheter ABP, PAP, CO, CI - Last Documented Arterial Blood Pressure 170/57 - Labs CBC & Chem 7: 02/15/23 05:25 02/15/23 05:25 Labs: Abnormal Lab Results - Last 24 Hours (Table) 02/15/23 02/15/23 02/15/23 Range/Units 05:25 05:25 06:05 RBC 2.21 L (4.30-5.90) m/uL Hgb 7.5 L (13.0-17.5) gm/dL Hct 23.4 L (39.0-53.0) % MCV 105.7 H (80.0-100.0) fL RDW 19.1 H (11.5-15.5) % Plt Count 134 L (150-450) k/uL Neutrophils # 8.5 H (1.3-7.7) k/uL Lymphocytes # 0.8 L (1.0-4.8) k/uL Macrocytosis Marked A ABG pH 7.32 L (7.35-7.45) ABG pO2 179 H (83-108) mmHg ABG HCO3 19 L (21-25) mmol/L ABG O2 Saturation 99.9 H (94-97) % Chloride 121 H (98-107) mmol/L Carbon Dioxide 19 L (22-30) mmol/L Creatinine 1.76 H (0.66-1.25) mg/dL Glucose 104 H (74-99) mg/dL POC Glucose (mg/dL) (70-110) mg/dL Calcium 7.5 L (8.4-10.2) mg/dL 02/15/23 02/15/23 Range/Units 12:06 12:35 RBC (4.30-5.90) m/uL Hgb (13.0-17.5) gm/dL Hct (39.0-53.0) % MCV (80.0-100.0) fL RDW (11.5-15.5) % Plt Count (150-450) k/uL Neutrophils # (1.3-7.7) k/uL Lymphocytes # (1.0-4.8) k/uL Macrocytosis ABG pH 7.32 L (7.35-7.45) ABG pO2 157 H (83-108) mmHg ABG HCO3 19 L (21-25) mmol/L ABG O2 Saturation 99.8 H (94-97) % Chloride (98-107) mmol/L Carbon Dioxide (22-30) mmol/L Creatinine (0.66-1.25) mg/dL Glucose (74-99) mg/dL POC Glucose (mg/dL) 114 H (70-110) mg/dL Calcium (8.4-10.2) mg/dL Microbiology - Last 24 Hours (Table) 02/12/23 21:43 Gram Stain - Final Sputum Sputum Culture - Final
[2023-02-15 16:55] LABS: Glucose,Whole Blood 112 mg/dL (70-110)
[2023-02-15] MEDS: PRAVASTATIN SODIUM 20 MG TAB PO SCH (20:30)
[2023-02-15 20:36] LABS: Glucose,Whole Blood 99 mg/dL (70-110)
[2023-02-16 05:29] LABS: Anisocytosis Slight; Basophils % (A) 0 %; Eosinophils # (A) 0.1 k/uL (0-0.7); Eosinophils % (A) 0 %; HCT 21.8 % (39.0-53.0); HGB 7.2 gm/dL (13.0-17.5); Hypochromasia Slight; Lymphocytes % (A) 7 %; MCH 34.2 pg (25.0-35.0); MCHC 32.8 g/dL (31.0-37.0); MCV 104.1 fL (80.0-100.0); Macrocytosis Marked; Mean Platelet Volume 10.8; Monocytes # (A) 0.7 k/uL (0-1.0); Monocytes % (A) 5 %; Neutrophils # (A) 11.7 k/uL (1.3-7.7); Neutrophils % (A) 86 %; Platelet Count 137 k/uL (150-450); Poikilocytosis Marked; RDW 19.8 % (11.5-15.5); WBC 13.7 k/uL (3.8-10.6)
[2023-02-16] MEDS: HYDROcodone/APAP 10-325MG 1 EACH TAB PO PRN ×3 (05:46→17:42)
[2023-02-16 06:15] LABS: Calcium 7.7 mg/dL (8.4-10.2); Magnesium 1.7 mg/dL (1.6-2.3); Phosphorus 2.7 mg/dL (2.5-4.5); Potassium 4.2 mmol/L (3.5-5.1)
[2023-02-16 06:47] LABS: Glucose,Whole Blood 80 mg/dL (70-110)
[2023-02-16] MEDS: SODIUM CHLORIDE 0.9% 1,000 ML IV SCH ×3 (07:05→22:51)
[2023-02-16] MEDS: INSULIN ASPART (NovoLOG) 100 UNIT/ML VIAL SQ SCH ×4 (07:06→19:59)
[2023-02-16] MEDS: MAGNESIUM SULFATE-D5W PMX 1 GM in DEXTROSE/WATER 1 100ML.BAG IVPB SCH ×2 (07:41→08:17)
[2023-02-16] MEDS: PIPERACILLIN-TAZOBACTAM 3.375 GM in SODIUM CHLORIDE 0.9% 100 ML IVPB SCH ×3 (07:41→23:31)
[2023-02-16] MEDS: CHOLECALCIFEROL 25 MCG (1000 IU) TABLET PO SCH (07:41)
[2023-02-16] MEDS: ISOSORBIDE MONONITRATE ER 30 MG TAB.ER.24H PO SCH (07:41)
[2023-02-16] MEDS: PYRIDOXINE 50 MG TAB PO SCH ×2 (07:41→22:10)
[2023-02-16] MEDS: APIXABAN 5 MG TAB PO SCH ×2 (07:41→20:43)
[2023-02-16] MEDS: PANTOPRAZOLE 40 MG/10 ML VIAL IV SCH (07:41)
[2023-02-16] MEDS: METOPROLOL TARTRATE 50 MG TAB PO SCH ×2 (08:24→20:43)
[2023-02-16] MEDS: IPRATROPIUM-ALBUTEROL 3 ML NEB INHALATION SCH ×4 (08:25→20:35)
[2023-02-16 09:21] VITALS: BMI 25.5
[2023-02-16 12:03] LABS: Glucose,Whole Blood 92 mg/dL (70-110)
--- NOTE | 2023-02-16 12:33 | P.PN ---
Subjective Progress Note Date: 02/16/23 The patient is seen at bedside and was extubated yesterday. He denies of any complaints just not happy to be in the hospital. Per the nurse he has been improving and doing well. Objective - Vital Signs Vital signs: Vital Signs Temp 98.2 F 02/16/23 12:00 Pulse 77 02/16/23 12:00 Resp 24 02/16/23 12:00 BP 127/66 02/16/23 12:00 Pulse Ox 95 02/16/23 12:00 FiO2 40 02/15/23 12:00 Intake & Output 02/15/23 02/16/23 02/16/23 18:59 06:59 18:59 Intake Total 2742.659 1750 600 Output Total 1585 1410 925 Balance 1157.659 340 -325 Weight 87.8 kg 87.8 kg Intake: IV 1950 1750 400 Piperacillin-Tazobactam 3 100 100 .375 gm In Sodium Chloride 0.9% 100 ml @ 25 mls/hr IVPB Q8HR ANDREW Rx# :[id number] Sodium Chloride 0.9% 1, 1950 1650 300 000 ml @ 75 mls/hr IV . [id number] ANDREW Rx#:[id number] Intake, IV Titration 672.659 200 Amount Magnesium Sulfate-D5w Pmx 100 1 gm In Dextrose/Water 1 100ml.bag @ 100 mls/hr IVPB ONCE ONE Rx#: [id number] Magnesium Sulfate-D5w Pmx 200 1 gm In Dextrose/Water 1 100ml.bag @ 100 mls/hr IVPB Q1H ANDREW Rx#: [id number] Norepinephrine 8 mg In 258 Sodium Chloride 0.9% 250 ml @ 0.03 MCG/KG/MIN 4. 345 mls/hr IV .Q24H ANDREW Rx#:[id number] Piperacillin-Tazobactam 3 200 .375 gm In Sodium Chloride 0.9% 100 ml @ 25 mls/hr IVPB Q8HR ANDREW Rx# :[id number] propofoL 1,000 mg In 114.659 Empty Bag 1 bag @ 15 MCG/ KG/MIN 6.736 mls/hr IV . [id number] ANDREW Rx#:[id number] Tube Feeding 120 Output: Urine 1585 1410 925 Other: Voiding Method Indwelling Catheter ABP, PAP, CO, CI - Last Documented Arterial Blood Pressure 162/62 - Exam Patient is awake, alert, oriented to self, place and time. Is following simple commands. No aphasia or neglect. Pupils are round, equal and reactive to light. VFF to confrontation. EOM intact and no nystagmus. No facial weakness. No dysarthria. Motor: Strength is lifting all extremities above gravity and no focality. SOME OF THE WORK-UP DURING THIS HOSPITAL VISIT CONSISTED OF: Routine EEG is abnormal. The back is only suggestive of mild encephalopathy. Otherwise there is no focal slowing, epileptiform discharge or seizure on the EEG. CT of the head is reported as no acute intracranial process. - Labs CBC & Chem 7: 02/16/23 05:15 02/16/23 05:15 Labs: Abnormal Lab Results - Last 24 Hours (Table) 02/15/23 02/15/23 02/16/23 Range/Units 12:35 16:55 05:15 WBC 13.7 H (3.8-10.6) k/uL RBC 2.10 L (4.30-5.90) m/uL Hgb 7.2 L (13.0-17.5) gm/dL Hct 21.8 L (39.0-53.0) % MCV 104.1 H (80.0-100.0) fL RDW 19.8 H (11.5-15.5) % Plt Count 137 L (150-450) k/uL Neutrophils # 11.7 H (1.3-7.7) k/uL Macrocytosis Marked A Chloride (98-107) mmol/L Carbon Dioxide (22-30) mmol/L Creatinine (0.66-1.25) mg/dL POC Glucose (mg/dL) 114 H 112 H (70-110) mg/dL Calcium (8.4-10.2) mg/dL 02/16/23 Range/Units 05:15 WBC (3.8-10.6) k/uL RBC (4.30-5.90) m/uL Hgb (13.0-17.5) gm/dL Hct (39.0-53.0) % MCV (80.0-100.0) fL RDW (11.5-15.5) % Plt Count (150-450) k/uL Neutrophils # (1.3-7.7) k/uL Macrocytosis Chloride 121 H (98-107) mmol/L Carbon Dioxide 17 L (22-30) mmol/L Creatinine 1.76 H (0.66-1.25) mg/dL POC Glucose (mg/dL) (70-110) mg/dL Calcium 7.7 L (8.4-10.2) mg/dL Microbiology - Last 24 Hours (Table) 02/12/23 21:43 Gram Stain - Final Sputum Sputum Culture - Final Assessment and Plan Assessment: Cardaic arrest in our facility. Prolonged arrest of 36minutes. Had V-fib then subsequently sinus bradycrdia. Altered mental status due to Anoxic encephalopathy--improved Bradycardia (40-50's) Digoxin toxicity (3.1. Therapeutic is 0.8-2.0) Acute respiratory failure hypoxia due to cardiac arrest and the patient is intubated on mechanical ventilation B6 deficiency History of coronary artery disease status post stent History of chronic atrial fibrillation with previous unsuccessful cardioversion Ischemic cardiomyopathy with ejection fraction of 30-35% and is not a good candidate for AICD placement due to underlying malignancy History of pancreatic cancer that is recent History of obstructive jaundice due to pancreatic tumor with previous biliary sending Peripheral vascular disease Marsteller to thrive Type 2 diabetes Plan: Cardiology is on board. We'll defer the rest of the medical management to the primary ICU team and other specialists Condition is guarded The patient has made drastic improvement from neurological perspective. The plan is discussed with the patient and his nurse. Will follow-up sporadically. Time with Patient: Less than 30
[2023-02-16 16:47] LABS: Glucose,Whole Blood 112 mg/dL (70-110)
[2023-02-16] MEDS: NOREPINEPHRINE 8 MG in SODIUM CHLORIDE 0.9% 250 ML IV SCH (17:38)
--- NOTE | 2023-02-16 17:42 | P.PN ---
Subjective PROGRESS NOTE The patient is a 68-year-old male, who was admitted on January 31 with evidence of atrial fibrillation. He has a known history of CAD, post stenting of the RCA in 1996, severe ischemic cardiomyopathy, moderate mitral regurgitation, hyp ertension hyperlipidemia and peripheral vascular disease who was being evaluated to undergo an ICD implant that was canceled because of a diagnosis of pancreatic cancer. The patient has lost a lot of weight and has not been able to eat. According to the nursing staff he was relatively stable when he went into ventricular tachycardia and had a cardiac arrest requiring a prolonged CPR with subsequent mandaeism of sinus mechanism after receiving multiple shocks, epinephrine and amiodarone. According to the note patient has been having severe abdominal pain and had been unable to eat or drink. He was seen in the ICU, intubated and sedated. Over the last few days the patient had episode of bradycardia and pauses. 02/13 Patient seen and examined. Patient remains intubated and sedated on ventilator. PEEP of 5 and FiO2 50%. Blood pressures 110s over 50s off of any vasopressors. Remains sedated. Intermittent bradycardia heart rates in the 40s and 50s and intermittent second-degree blocks. Amio drip was stopped secondary to bradycardia. 02/14 Patient seen and examined. Patient off of any vasopressors and remains sedated on propofol. Amiodarone drip was discontinued secondary to bradycardia. No significant ventricular ectopy. On ventilator with a FiO2 40% and PEEP of 5. R eceiving IV fluids at 150 mL per hour. 02/15 Patient seen and examined. Patient is intubated and sedated. Attempts at weaning patient from sedation yesterday with some following commands however had problems weaning sedation. Remains on propofol. FiO2 40% with a PEEP of 5. Blood pressure is borderline elevated. Currently sinus rhythm with occasional pauses. 02/16 Patient seen and examined. Patient was extubated yesterday and currently maintaining nasal cannula. Denies any chest pain or pressure. Mainly admits to continued abdominal pain as well as bilateral arm pain. He is still having intermittent bradycardic episodes with occasional pauses up to 2.5 seconds. No lightheadedness or dizziness. PHYSICAL EXAMINATION: Vitals reviewed LUNGS: Clear to auscultation HEART: Rregular rate and rhythm, S1, S2. No S3. systolic ejection murmur ABDOMEN: Soft, positive bowel sounds, no organomegaly EXTREMETIES: No edema IMPRESSION: 1. Cardiac arrest with recurrent ventricular fibrillation and tachycardia requiring CPR 2. Known history of severe ischemic cardiomyopathy 3. Known history of CAD status post stenting of the RCA in 1996 4. Pancreatic cancer 5. Poor by mouth intake with severe weight loss 6. Anemia 7. Elevated digoxin level PLAN: Patient has had good neurologic recovery. Continue with current supportive care. Discussed briefly possible workup however patient does not appear to be good candidate for interventional procedure or AICD. Unclear if AICD would ch suzie outcome with majority of prognosis related to pancreatic cancer. May consider LifeVest on discharge however we'll discuss further in detail pending patient's progress and wishes. Objective - Vital Signs Vital signs: Vital Signs Temp 98.2 F 02/16/23 12:00 Pulse 77 02/16/23 15:45 Resp 18 02/16/23 15:45 BP 131/62 02/16/23 13:42 Pulse Ox 92 L 02/16/23 13:42 FiO2 40 02/15/23 12:00 Intake & Output 02/15/23 02/16/23 02/16/23 18:59 06:59 18:59 Intake Total 2742.659 1750 600 Output Total 1585 1410 925 Balance 1157.659 340 -325 Weight 87.8 kg 87.8 kg Intake: IV 1950 1750 400 Piperacillin-Tazobactam 3 100 100 .375 gm In Sodium Chloride 0.9% 100 ml @ 25 mls/hr IVPB Q8HR [facility] Rx# :[id number] Sodium Chloride 0.9% 1, 1950 1650 300 000 ml @ 75 mls/hr IV . [id number] [facility] Rx#:[id number] Intake, IV Titration 672.659 200 Amount Magnesium Sulfate-D5w Pmx 100 1 gm In Dextrose/Water 1 100ml.bag @ 100 mls/hr IVPB ONCE ONE Rx#: [id number] Magnesium Sulfate-D5w Pmx 200 1 gm In Dextrose/Water 1 100ml.bag @ 100 mls/hr IVPB Q1H [facility] Rx#: [id number] Norepinephrine 8 mg In 258 Sodium Chloride 0.9% 250 ml @ 0.03 MCG/KG/MIN 4. 345 mls/hr IV .Q24H [facility] Rx#:[id number] Piperacillin-Tazobactam 3 200 .375 gm In Sodium Chloride 0.9% 100 ml @ 25 mls/hr IVPB Q8HR [facility] Rx# :[id number] propofoL 1,000 mg In 114.659 Empty Bag 1 bag @ 15 MCG/ KG/MIN 6.736 mls/hr IV . [id number] [facility] Rx#:[id number] Tube Feeding 120 Output: Urine 1585 1410 925 Stool 0 Other: Voiding Method Indwelling Catheter Indwelling Catheter ABP, PAP, CO, CI - Last Documented Arterial Blood Pressure 162/62 - Labs CBC & Chem 7: 02/16/23 05:15 02/16/23 05:15 Labs: Abnormal Lab Results - Last 24 Hours (Table) 02/16/23 02/16/23 02/16/23 Range/Units 05:15 05:15 16:46 WBC 13.7 H (3.8-10.6) k/uL RBC 2.10 L (4.30-5.90) m/uL Hgb 7.2 L (13.0-17.5) gm/dL Hct 21.8 L (39.0-53.0) % MCV 104.1 H (80.0-100.0) fL RDW 19.8 H (11.5-15.5) % Plt Count 137 L (150-450) k/uL Neutrophils # 11.7 H (1.3-7.7) k/uL Macrocytosis Marked A Chloride 121 H (98-107) mmol/L Carbon Dioxide 17 L (22-30) mmol/L Creatinine 1.76 H (0.66-1.25) mg/dL POC Glucose (mg/dL) 112 H (70-110) mg/dL Calcium 7.7 L (8.4-10.2) mg/dL
[2023-02-16 19:53] LABS: Glucose,Whole Blood 131 mg/dL (70-110)
[2023-02-16] MEDS: PRAVASTATIN SODIUM 20 MG TAB PO SCH (20:43)
[2023-02-17] MEDS: HYDROcodone/APAP 10-325MG 1 EACH TAB PO PRN ×4 (00:36→20:53)
--- NOTE | 2023-02-17 05:14 | P.PN ---
Subjective Progress Note Date: 02/16/23 This is a pleasant 67 years old male with multiple medical problems who was admitted initially on 02/01 with shortness of breath and borderline blood pressure 105/78 thought secondary to A. fib and RVR as his heart rate was around 133. Patient has been able to by exchange clerk and his dose of metoprolol increased from 50 mg up to 100 mg and continued on digoxin 250 mg as well as he is on liquids 5 mg. Patient with recent history of pancreatic cancer diagnosed last September and his been having chronic abdominal pain in the epigastrium about 7/10 similar since then. He has some mouth sores and bicytopenia secondary to recent chemotherapy, oncology team on the case. He is kept nothing by mouth and TPN is running partially because of his mouth sores. He still have bouts of diarrhea but states that he started getting better today and more formed. C. diff is negative. Patient says that his weakness is better than last week, he fell 2 days ago, Cedergren was negative at that time. He is fully awake and oriented denies chest pain or dyspnea. He still feels generally weak and he still have abdominal pain as above. No urinary complaints. Vitas looks stable. Patient is afebrile. Hemoglobin 8.4 and platelet count improved to 83. CT of the abdomen and pelvis showing cholelithiasis with biliary stent in place and fluid distention of the colon was closed with diarrhea. Patient currently on D5 normal saline at 50 mL per hour and Eliquis 5 mg. We will check vitamin B12 and vitamin D. Also will check stool for elastase 02/09/2023 Patient pulled his PICC line accidentally today. Patient is not confused. Patient does swallow evaluation and I agree with starting him on liquid diet with advanced as tolerated. His mouth sores have resolved significantly and they are minimum in his examination today. His A. fib is in control on metoprolol higher dose 100 mg and Eliquis 5 mg BMP is a stable Check labs in the morning including platelet count and hemoglobin and BMP. Patient says that diarrhea has significantly improved. We still waiting for elastase to check for pancreatic function. 02/10/2023 Patient diarrhea has stopped, his heart rate and A. fib has been controlled which were the 2 main acute reasons he came into the hospital with. Patient still with chronic problems since last September including loss of energy, epigastric and upper abdominal pain and severe anorexia related to his cancer. Patient is open to go to rehab however his main problem is inability to eat very at Oncology team on the case. We checked vitamin B12 more than 3600 which is very high level above the limits therefore we discontinued his vitamin B12 pills Vitamin B6 is low last than 5 at 4. Therefore was set replacement therapy. 02/11/2023 Patient clinically is the same, no significant diarrhea, abdominal pain is chronic. Still has low appetite Today I have a discussion with the patient about his eating and anorexia and he is willing to try soft diet today. Therefore we don't advance his liquid diet until soft diet and keep monitoring The meantime we will hold Imodium so we can monitor his diarrhea. Discussed with staff to check for still elastase. Oncology team on the case 02/12/2023 Today patient developed cardiac arrest and CODE BLUE was called. He underwent CPR several rounds and had cardiac rhythm of V. fib and V. tach. Patient regained blood pressure and pulse rate, He is intubated and sedated and transferred to the ICU. Patient was examined at bedside during the code, EKG showing ischemic changes, rhythm is bradycardic and patient was hypotensive. Pulmonary/critical care team and cardiology team evaluated the patient Continue with amiodarone, normal saline, antibiotic with Zosyn. I discussed the case with cardiology team, patient is a known severe ischemic cardiomyopathy, he is not a candidate for cardiac cath, discussed the prognosis with oncology team is recommended. I discussed the case with the sister Halle over the phone who told me she is the next of kin, and there are no other family members to discuss the case with, the case was discussed with her in detail, hospital course as well as today's event are explained to her. She referred to his advance directive stating no extraheroic measures, she confirms to me he is DO NOT RESUSCITATE, also she would like to talk to hospice team. consult for hospice for information is placed Patient is a known pancreatic cancer case, with severe anorexia since September 2022 as he stated, with significant weight loss, patient did not eat this morning, confirmed with the bedside nurse. Status post 3 cycles of chemotherapy. Prognosis remains guarded, Also we will consult oncology team for prognosis. I discussed the case with the ICU bed side nurse, he has advanced directive and Halle is name as his medical advocate. 02/13/2023 Patient is seen in follow-up today currently intubated in the ICU on mechanical ventilation and FiO2 is 40% with a PEEP of 5. Multiple medical consultations including cardiology, pulmonary, oncology following. Patient was status post cardiac arrest in a hospice consult was placed although family does not want to pursue this at this time and are agreeable to no code. Follow-up labs pending and overall prognosis remains extremely guarded. Patient is undergoing sedation holidays to assess mentation and neurology was consulted with a brain CT and EEG ordered and pending. Patient is currently afebrile with no reported chest pain or shortness of breath. No plans for weaning today. 02/14/2023 Patient seen and evaluated in follow-up today continues to be on mechanical ventilation with multiple medical consultations following including neurology. CT brain showing no acute process an EEG continues to be abnormal although no epileptiform discharges noted. Patient undergoing sedation holidays and will follow commands. Pulmonary following and will continue monitor closely for weaning parameters. A.m. labs currently pending and will follow-up and recom mended replace electrolytes per protocol. Overall prognosis remains guarded at this time. 02/15/2023 Patient is seen this morning in the ICU continues on mechanical ventilation with consideration of weaning and tolerating sedation holidays. Patient currently on vent with an FiO2 of 40% and PEEP is 5. Chest x-rays this morning shows no evidence of pleural effusion or pneumothorax and support lines in appropriate position. Patient also continues on IV Zosyn empirically with concerns of aspir ation pneumonia. White count is normal at 10 him a hemoglobin is 7.5, platelets are 134, sodium 145 with a potassium of 3.6 and creatinine is currently 1.76, magnesium is 1.8 and being replaced currently. 02/16/2023 Patient continues to be in the ICU with multiple medical consultations following. Patient is a downgrade and awaiting a bed availability on 3 S. Patient was extubated successfully currently maintained on as needed nasal cannula with good oxygen saturation. Patient be started on full liquid diet and would recommend aspiration precautions. Patient is continued on Zosyn and will continue for now. Recommend follow-up labs in the a.m. and patient will need physical therapy evaluation. Patient with significant weakness and prolonged hospitalization. Patient is afebrile denies chest pain or shortness of breath. Review of systems: Unable to obtain as patient is currently sedated Physical exam: GENERAL: The patient is intubated and sedated, undergoing sedation holidays and per nursing staff patient is following commands. FiO2 is 40% and PEEP is 5 HEENT: Pupils are round and equally reacting to light. EOMI. No scleral icterus. No conjunctival pallor. Normocephalic, atraumatic. No pharyngeal erythema. No thyromegaly. CARDIOVASCULAR: S1 and S2 muffled PULMONARY: Diminished breath sounds bilaterally with no wheezing and some rhonchi noted. Patient is not Tachypneic ABDOMEN: Soft, no rebound tenderness or guarding, nondistended, normoactive bowel sounds. No palpable organomegaly. MUSCULOSKELETAL: No joint swelling or deformity. EXTREMITIES: No cyanosis, clubbing, or pedal edema. NEUROLOGICAL: Unable to completely assess as patient is currently sedated SKIN: No rashes. no petechiae. Assessment: Status post cardiac arrest and CPR with return of spontaneous circulation, cardiac arrest while hospitalized and down time was approximately 36 minutes Hypotension and bradycardia secondary to above, improving Acute hypoxemic respiratory failure requiring intubation and mechanical ventilation, extubated successfully on 02/15/2023 2 L via nasal cannula Possible right lower lobe aspiration pneumonia A. fib and RVR, present on admission, currently rate is better controlled Pancreatic cancer status post chemotherapy Severe anorexia, since last September, most likely related to his cancer Chronic abdominal pain secondary to above. 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 Severe Ischemic cardiomyopathy, with ejection fraction 30-35% Coronary artery disease status post RCA stent Chronic kidney disease stage III Biliary obstruction secondary to pancreatic cancer status post stent Ongoing diarrhea, improving No code Plan: Continue with ICU monitoring and patient was extubated successfully currently maintained on 2-3 L via nasal cannula with oxygen saturations above 97% Patient is awake and appropriately responding to questions and commands and tolerated oral intake, will resume oral medications and recommend monitor closely for aspiration precautions, continue full liquid diet Patient is being downgraded from ICU and awaiting a bed on 3 S. Multiple medical consultations including cardiology and neurology following Continue with Valerio for concerns of aspiration pneumonia Oncology following as well as patient does have pancreatic cancer currently treatments are on hold Continue with Lorrainequchristiane Recommend follow-up labs Will need extensive PT/OT therapy evaluation given his down time and prolonged hospitalization patient has significant weakness Prognosis remains extremely guarded at this time. Family agreeable to be DO NOT RESUSCITATE The impression and plan of care has been dictated by Jasmina Tre, Nurse Practitioner as directed. Dr. Kade MD I have performed a history and examination and MDM of this patient, discussed the same with the dictator, and agree with the dictator's assessment and plan as written ,documented as a scribe. Based on total visit time, I have performed more than 50% of the visit. Objective - Vital Signs Vital signs: Vital Signs Temp 98.2 F 02/16/23 12:00 Pulse 77 02/16/23 12:00 Resp 24 02/16/23 12:00 BP 127/66 02/16/23 12:00 Pulse Ox 95 02/16/23 12:00 FiO2 40 02/15/23 12:00 Intake & Output 02/15/23 02/16/23 02/16/23 18:59 06:59 18:59 Intake Total 2742.659 1750 600 Output Total 1585 1410 375 Balance 1157.659 340 225 Weight 87.8 kg 87.8 kg Intake: IV 1950 1750 400 Piperacillin-Tazobactam 3 100 100 .375 gm In Sodium Chloride 0.9% 100 ml @ 25 mls/hr IVPB Q8HR [facility] Rx# :[id number] Sodium Chloride 0.9% 1, 1950 1650 300 000 ml @ 150 mls/hr IV . [id number] [facility] Rx#:[id number] Intake, IV Titration 672.659 200 Amount Magnesium Sulfate-D5w Pmx 100 1 gm In Dextrose/Water 1 100ml.bag @ 100 mls/hr IVPB ONCE ONE Rx#: [id number] Magnesium Sulfate-D5w Pmx 200 1 gm In Dextrose/Water 1 100ml.bag @ 100 mls/hr IVPB Q1H [facility] Rx#: [id number] Norepinephrine 8 mg In 258 Sodium Chloride 0.9% 250 ml @ 0.03 MCG/KG/MIN 4. 345 mls/hr IV .Q24H [facility] Rx#:[id number] Piperacillin-Tazobactam 3 200 .375 gm In Sodium Chloride 0.9% 100 ml @ 25 mls/hr IVPB Q8HR [facility] Rx# :[id number] propofoL 1,000 mg In 114.659 Empty Bag 1 bag @ 15 MCG/ KG/MIN 6.736 mls/hr IV . [id number] [facility] Rx#:[id number] Tube Feeding 120 Output: Urine 1585 1410 375 Other: Voiding Method Indwelling Catheter ABP, PAP, CO, CI - Last Documented Arterial Blood Pressure 162/62 - Labs CBC & Chem 7: 02/16/23 05:15 02/16/23 05:15 Labs: Abnormal Lab Results - Last 24 Hours (Table) 02/15/23 02/15/23 02/16/23 Range/Units 12:35 16:55 05:15 WBC 13.7 H (3.8-10.6) k/uL RBC 2.10 L (4.30-5.90) m/uL Hgb 7.2 L (13.0-17.5) gm/dL Hct 21.8 L (39.0-53.0) % MCV 104.1 H (80.0-100.0) fL RDW 19.8 H (11.5-15.5) % Plt Count 137 L (150-450) k/uL Neutrophils # 11.7 H (1.3-7.7) k/uL Macrocytosis Marked A Chloride (98-107) mmol/L Carbon Dioxide (22-30) mmol/L Creatinine (0.66-1.25) mg/dL POC Glucose (mg/dL) 114 H 112 H (70-110) mg/dL Calcium (8.4-10.2) mg/dL 02/16/23 Range/Units 05:15 WBC (3.8-10.6) k/uL RBC (4.30-5.90) m/uL Hgb (13.0-17.5) gm/dL Hct (39.0-53.0) % MCV (80.0-100.0) fL RDW (11.5-15.5) % Plt Count (150-450) k/uL Neutrophils # (1.3-7.7) k/uL Macrocytosis Chloride 121 H (98-107) mmol/L Carbon Dioxide 17 L (22-30) mmol/L Creatinine 1.76 H (0.66-1.25) mg/dL POC Glucose (mg/dL) (70-110) mg/dL Calcium 7.7 L (8.4-10.2) mg/dL Microbiology - Last 24 Hours (Table) 02/12/23 21:43 Gram Stain - Final Sputum Sputum Culture - Final
[2023-02-17 05:52] LABS: Glucose,Whole Blood 92 mg/dL (70-110)
[2023-02-17] MEDS: INSULIN ASPART (NovoLOG) 100 UNIT/ML VIAL SQ SCH ×4 (05:55→22:14)
[2023-02-17] MEDS: IPRATROPIUM-ALBUTEROL 3 ML NEB INHALATION SCH ×4 (07:28→20:57)
[2023-02-17] MEDS: PIPERACILLIN-TAZOBACTAM 3.375 GM in SODIUM CHLORIDE 0.9% 100 ML IVPB SCH ×2 (08:57→15:36)
[2023-02-17] MEDS: ISOSORBIDE MONONITRATE ER 30 MG TAB.ER.24H PO SCH (08:58)
[2023-02-17] MEDS: METOPROLOL TARTRATE 50 MG TAB PO SCH ×2 (08:58→20:52)
[2023-02-17] MEDS: APIXABAN 5 MG TAB PO SCH ×2 (08:58→20:51)
[2023-02-17] MEDS: CHOLECALCIFEROL 25 MCG (1000 IU) TABLET PO SCH (08:58)
[2023-02-17] MEDS: PYRIDOXINE 50 MG TAB PO SCH ×2 (08:59→20:52)
[2023-02-17] MEDS: PANTOPRAZOLE 40 MG/10 ML VIAL IV SCH (08:59)
[2023-02-17 10:23] LABS: Anisocytosis Slight; Basophils % (A) 0 %; Eosinophils # (A) 0.1 k/uL (0-0.7); Eosinophils % (A) 0 %; HCT 23.2 % (39.0-53.0); HGB 7.7 gm/dL (13.0-17.5); Hypochromasia Moderate; Lymphocytes # (A) 1.1 k/uL (1.0-4.8); Lymphocytes % (A) 9 %; MCH 35.5 pg (25.0-35.0); MCHC 33.3 g/dL (31.0-37.0); MCV 106.7 fL (80.0-100.0); Macrocytosis Marked; Mean Platelet Volume 8.5; Monocytes # (A) 0.7 k/uL (0-1.0); Monocytes % (A) 5 %; Neutrophils # (A) 10.2 k/uL (1.3-7.7); Neutrophils % (A) 84 %; Platelet Count 179 k/uL (150-450); Poikilocytosis Moderate; RBC 2.18 m/uL (4.30-5.90); WBC 12.2 k/uL (3.8-10.6)
[2023-02-17 10:34] LABS: Calcium 7.7 mg/dL (8.4-10.2); Magnesium 1.8 mg/dL (1.6-2.3); Phosphorus 3.1 mg/dL (2.5-4.5); Potassium 4.3 mmol/L (3.5-5.1)
[2023-02-17] MEDS ORDERED: Magnesium Replacement Protocol 1 EACH MISC MISCELLANE PRN ×2 (11:07→11:13)
[2023-02-17] MEDS ORDERED: Potassium Replacement Protocol 1 EACH MISC MISCELLANE PRN (11:07)
[2023-02-17] MEDS ORDERED: MAGNESIUM SULFATE-D5W PMX 1 GM in DEXTROSE/WATER 1 100ML.BAG IVPB ONE (11:13)
[2023-02-17 11:48] LABS: Glucose,Whole Blood 126 mg/dL (70-110)
[2023-02-17] MEDS: SODIUM CHLORIDE 0.9% 1,000 ML IV SCH (12:05)
--- NOTE | 2023-02-17 12:32 | P.PN ---
Subjective PROGRESS NOTE The patient is a 68-year-old male, who was admitted on January 31 with evidence of atrial fibrillation. He has a known history of CAD, post stenting of the RCA in 1996, severe ischemic cardiomyopathy, moderate mitral regurgitation, hyp ertension hyperlipidemia and peripheral vascular disease who was being evaluated to undergo an ICD implant that was canceled because of a diagnosis of pancreatic cancer. The patient has lost a lot of weight and has not been able to eat. According to the nursing staff he was relatively stable when he went into ventricular tachycardia and had a cardiac arrest requiring a prolonged CPR with subsequent alevism of sinus mechanism after receiving multiple shocks, epinephrine and amiodarone. According to the note patient has been having severe abdominal pain and had been unable to eat or drink. He was seen in the ICU, intubated and sedated. Over the last few days the patient had episode of bradycardia and pauses. 02/13 Patient seen and examined. Patient remains intubated and sedated on ventilator. PEEP of 5 and FiO2 50%. Blood pressures 110s over 50s off of any vasopressors. Remains sedated. Intermittent bradycardia heart rates in the 40s and 50s and intermittent second-degree blocks. Amio drip was stopped secondary to bradycardia. 02/14 Patient seen and examined. Patient off of any vasopressors and remains sedated on propofol. Amiodarone drip was discontinued secondary to bradycardia. No significant ventricular ectopy. On ventilator with a FiO2 40% and PEEP of 5. R eceiving IV fluids at 150 mL per hour. 02/15 Patient seen and examined. Patient is intubated and sedated. Attempts at weaning patient from sedation yesterday with some following commands however had problems weaning sedation. Remains on propofol. FiO2 40% with a PEEP of 5. Blood pressure is borderline elevated. Currently sinus rhythm with occasional pauses. 02/16 Patient seen and examined. Patient was extubated yesterday and currently maintaining nasal cannula. Denies any chest pain or pressure. Mainly admits to continued abdominal pain as well as bilateral arm pain. He is still having intermittent bradycardic episodes with occasional pauses up to 2.5 seconds. No lightheadedness or dizziness. 02/17 Patient seen and examined. Patient denies any chest pain or pressure. No other significant arrhythmias. Patient is having somewhat improvement in terms of his strength. He has some diet however has significant abdominal pain. He is back in A. fib with controlled ventricular rates 60 to 80s. PHYSICAL EXAMINATION: Vitals reviewed LUNGS: Clear to auscultation HEART: Rregular rate and rhythm, S1, S2. No S3. systolic ejection murmur ABDOMEN: Soft, positive bowel sounds, no organomegaly EXTREMETIES: No edema IMPRESSION: 1. Cardiac arrest with recurrent ventricular fibrillation and tachycardia requiring CPR 2. Known history of severe ischemic cardiomyopathy 3. Known history of CAD status post stenting of the RCA in 1996 4. Pancreatic cancer 5. Poor by mouth intake with severe weight loss 6. Anemia 7. Elevated digoxin level PLAN: This case with his primary precipitate washer, Dr. Michael. AICD only indicated if life expectancy greater than 6 months and unclear status with his pancreatic cancer. Continue with current supportive care for now. Continue with metoprolol. Appears relatively stable from a cardiology standpoint. Continue with anticoagulation monitor anemia. Continue to hold digoxin. Appears relatively stable from a cardiology standpoint for transfer to rehab. Objective - Vital Signs Vital signs: Vital Signs Temp 98.2 F 02/17/23 11:06 Pulse 80 02/17/23 11:39 Resp 18 02/17/23 11:06 BP 143/63 02/17/23 11:06 Pulse Ox 94 L 02/17/23 11:06 FiO2 40 02/15/23 12:00 Intake & Output 02/16/23 02/17/23 02/17/23 18:59 06:59 18:59 Intake Total 822 236 Output Total 925 150 Balance -103 -150 236 Weight 87.8 kg Intake: IV 400 Piperacillin-Tazobactam 3 100 .375 gm In Sodium Chloride 0.9% 100 ml @ 25 mls/hr IVPB Q8HR [facility] Rx# :[id number] Sodium Chloride 0.9% 1, 300 000 ml @ 75 mls/hr IV . [id number] [facility] Rx#:[id number] Intake, IV Titration 200 Amount Magnesium Sulfate-D5w Pmx 200 1 gm In Dextrose/Water 1 100ml.bag @ 100 mls/hr IVPB Q1H [facility] Rx#: [id number] Oral 222 236 Output: Urine 925 150 Stool 0 Other: Voiding Method Indwelling Catheter Indwelling Catheter ABP, PAP, CO, CI - Last Documented Arterial Blood Pressure 162/62 - Labs CBC & Chem 7: 02/17/23 09:23 02/17/23 09:23 Labs: Abnormal Lab Results - Last 24 Hours (Table) 02/16/23 02/16/23 02/17/23 Range/Units 16:46 19:51 09:23 WBC 12.2 H (3.8-10.6) k/uL RBC 2.18 L (4.30-5.90) m/uL Hgb 7.7 L (13.0-17.5) gm/dL Hct 23.2 L (39.0-53.0) % MCV 106.7 H (80.0-100.0) fL MCH 35.5 H (25.0-35.0) pg RDW 19.0 H (11.5-15.5) % Neutrophils # 10.2 H (1.3-7.7) k/uL Macrocytosis Marked A Chloride (98-107) mmol/L Carbon Dioxide (22-30) mmol/L BUN (9-20) mg/dL Creatinine (0.66-1.25) mg/dL Glucose (74-99) mg/dL POC Glucose (mg/dL) 112 H 131 H (70-110) mg/dL Calcium (8.4-10.2) mg/dL 02/17/23 02/17/23 Range/Units 09:23 11:45 WBC (3.8-10.6) k/uL RBC (4.30-5.90) m/uL Hgb (13.0-17.5) gm/dL Hct (39.0-53.0) % MCV (80.0-100.0) fL MCH (25.0-35.0) pg RDW (11.5-15.5) % Neutrophils # (1.3-7.7) k/uL Macrocytosis Chloride 119 H (98-107) mmol/L Carbon Dioxide 18 L (22-30) mmol/L BUN 21 H (9-20) mg/dL Creatinine 2.02 H (0.66-1.25) mg/dL Glucose 100 H (74-99) mg/dL POC Glucose (mg/dL) 126 H (70-110) mg/dL Calcium 7.7 L (8.4-10.2) mg/dL
--- NOTE | 2023-02-17 13:03 | P.PN ---
Subjective Progress Note Date: 02/16/23 Principal diagnosis: Cardiac arrest with acute hypoxic respiratory failure 68-year-old male patient with an extensive cardiac disease, coronary artery disease, chronic atrial fibrillation and severe ischemic cardiomyopathy in addition to a recent diagnosis of a pancreatic cancer. The patient was has less for A. fib RVR. Earlier this morning, the patient went into cardiac arrest. DRAGAN GARCIA was called at 1131. The patient was immediately resuscitated based on the ACLS protocol. Initial rhythm was ventricular fibrillation with no pulse. Total code time was approximately 36 minutes. Throughout the code, patient had received 6 shocks, initial joules were 150, then escalated to 200 J. Patient received a 300 mg amiodarone bolus, then proceeded 150 mg amiodarone bolus. Patient received multiple pushes of epinephrine. Patient also received 2 g of magnesium sulfate, 1 g of calcium chloride. Patient had return of spontaneous circulation for the first time at 1152, was noted to be in junctional bradycardia and received one push of atropine 1156, loss pulse again and went into V. fib 1157 with CPR resumed. Patient was shocked again for the 6 time at 1158, received 1 g calcium. He again had return of spontaneous circulation 1159 with a pulse, rhythm was junctional rhythm with a heart rate of 57. Patient's blood pressure was cycled and noted to be 172/118. 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 After discussion with machining supervisor, patient was transferred to the intensive care unit for further monitoring. Patient's family was notified by nursing. Patient's attending was also present throughout the code, and signout was given to him upon transfer to the intensive care unit. At this point in time, the patient is intubated on a mechanical ventilator. He is on a propofol running at 40 microvascular kilogram per minutes. Is on assist-control mode of mechanical ventilation at the rate of 16, tidal volume of 400, FiO2 wasn't 100% with PEEP of 5. The initial blood gas showed a pH of 7.22 with a pCO2 of 30 and pO2 more than 400. FiO2 is being weaned. Chest x-ray showed ET tube being in a good location. The patient has a port over the right anterior chest. There is increased opacity around the right perihilar area. The patient currently is hypotensive. The patient is receiving a bolus of nor mal saline 1 L. Blood work is still pending for now. The blood work from yesterday was noted and the patient has a WBC count 9.6 with a hemoglobin of 9.7. Electrolytes are all within normal limits. Normal renal function. His most recent cardiac rhythm is sinus bradycardia with first-degree AV block. The patient was started on amiodarone per cardiology recommendation currently running at 1 mg/m. He is on anticoagulation with Eliquis 5 mg by mouth twice a day. He is also supposed to be on metoprolol which is currently on hold. The patient had a triple-lumen catheter and arterial line catheter inserted in the ICU. He looks very marked emaciated and cachectic Reevaluated today on02/13/2023, patient remains in the ICU intubated and mechanically ventilated. He is on assist control rate of 16 volume 400 FiO2 50% PEEP of 5 ABG showed a pO2 of 215 pCO2 35 pH of 7.38 patient is on propofol at 45 mcg/kg/m, he is also on IV fluid 0.9 normal saline at 1 50 mL per hour. Patient is on Zosyn empirically, neurology consultation is pending, patient had a cardiac arrest and his down time was 36 minutes. Not to mention the patient has underlying metastatic pancreatic carcinoma. His FiO2 was cut down to 40% after reviewing his ABG. Chest x-ray showed, minimal right lower lobe opacity could be atelectasis or could be aspiration pneumonia in nature. WBC count today is 10.4 hemoglobin is 8.6 electrode start normal however his creatinine is 1.31, baseline creatinine prior to the cardiac arrest was 0.890. Patient remains on eliquis, he is also on Zosyn. And his IV fluid is 0.9 normal saline at 1 50 mL per hour. Patient is receiving Protonix for GI prophylaxis. And he will be started on enteral feeding today. Luckily the patient is hemodynamically stable, not requiring any pressors at this point. Nonetheless he is critically ill. And I have advised holding propofol and assess mental status today. Seen by neurology on consultation, CT of the head and EEG are pending. Looking back at his digitoxin level was noted to be elevated 3.1, and that is being addressed by cardiology. Reevaluated today on 02/14/2023, patient remains in the ICU, intubated and mechanically ventilated. Patient is on assist control rate of 16 tidal volume 400 FiO2 40% and PEEP of 5 ABG showed a pO2 of 157 pCO2 36 pH of 7.30 hence we'll decrease FiO2 to 35%. Otherwise no change in ventilator settings. Patient is receiving propofol at 45 mg/kg/m, also receiving IV fluid at 1 50 mL per hour. Vital Hp at 20 mL per hour. Brain CT showed no acute intracranial process chest x-ray showed vague density at the right lung base, possibly atelectasis, or could be early infiltrate/aspiration. Labs today WBC count of 13.8 hemoglobin is 8.2, basic metabolic profile is normal bicarb is 18, patient has hyperchloremic non-anion gap metabolic acidosis. BUN is 14 creatinine 1.67 on slightly worse compared to yesterday. Patient remains on Zosyn empirically, he is also on bronchodilators, and on GI and DVT prophylaxis. Receiving eliquis 5 mg twice a day and is also on pantoprazole Reevaluated today on 02/15/2023, patient remains in the ICU, intubated and mechanically ventilated. Patient is on assist control rate of 16 tidal volume 400 FiO2 40% PEEP of 5. ABG showed a pO2 of 179 pCO2 37 pH of 7.32. Patient remains on IV fluid 0.9 normal saline at 1 50 mL/h propofol at 40 mcg/kg/m vital Hb at 48 mL per hour. Remains empirically on Zosyn for presumptive aspiration pneumonia. After ABG was noted I cut down his FiO2 to 35%, I recommended holding propofol, and should give the patient at least weaning trial if he passes his weaning parameters. WBC count today is 10 hemoglobin is 7.5. Platelets are 1 34,000 ABG on pressure support mode of mechanical ventilation showed a pO2 of 157 pCO2 37 pH of 7.32 renal functioning seems to be a bit worse today, BUN is up to 16 and creatinine up to 1.76, I believe the patient may have sustained acute tubular necrosis from his cardiac arrest Reevaluated on 02/16/2023, patient extubated, remains on 2 L nasal cannula, not in any distress. CODE STATUS has been changed to DO NOT RESUSCITATE CODE STATUS, patient is not to be reintubated. Patient denies any specific complaints, no pain, no shortness of breath, no cough, no wheezing. His CBC showed a WBC count of 15.7 hemoglobin 7.2. Basic metabolic profile is normal bicarb is a bit low at 17. Renal profile is about the same with creatinine of 1.76, and is basically unchanged in the last 2-3 days will plan to transfer the patient out of the ICU to a regular medical floor Objective - Vital Signs Vital signs: Vital Signs Temp 98.2 F 02/17/23 11:06 Pulse 80 02/17/23 11:39 Resp 18 02/17/23 11:06 BP 143/63 02/17/23 11:06 Pulse Ox 94 L 02/17/23 11:06 FiO2 40 02/15/23 12:00 Intake & Output 02/16/23 02/17/23 02/17/23 18:59 06:59 18:59 Intake Total 822 236 Output Total 925 150 Balance -103 -150 236 Weight 87.8 kg Intake: IV 400 Piperacillin-Tazobactam 3 100 .375 gm In Sodium Chloride 0.9% 100 ml @ 25 mls/hr IVPB Q8HR ANDREW Rx# :[id number] Sodium Chloride 0.9% 1, 300 000 ml @ 75 mls/hr IV . [id number] ANDREW Rx#:[id number] Intake, IV Titration 200 Amount Magnesium Sulfate-D5w Pmx 200 1 gm In Dextrose/Water 1 100ml.bag @ 100 mls/hr IVPB Q1H ANDREW Rx#: [id number] Oral 222 236 Output: Urine 925 150 Stool 0 Other: Voiding Method Indwelling Catheter Indwelling Catheter ABP, PAP, CO, CI - Last Documented Arterial Blood Pressure 162/62 - Exam Physical Exam: Revealed a 68-year-old white male in no distress, off mechanical ventilation, on 2 L nasal cannula. Head: Atraumatic normocephalic. HEENT:[Neck is supple.] [No neck masses.] [No thyromegaly.] [No JVD.] Chest: [Clear throughout, no crackles, no rhonchi, no wheezes.] Cardiac Exam: [Irregular irregular rhythm. Normal S1 and S2, no S3 gallop, 2/6 systolic ejection murmur throughout the precordium. Abdomen: [Soft, nontender, no megaly, no rebound, no guarding, normal bowel sounds.] Extremities: [No clubbing, no edema, no cyanosis.] Neurological Exam: Alert and oriented 3, a bit slow otherwise unremarkable. No gross focal deficits Psychiatric: Depressed mood and flat affect, normal mental status Skin: No rashes - Labs CBC & Chem 7: 02/17/23 09:23 02/17/23 09:23 Labs: Abnormal Lab Results - Last 24 Hours (Table) 02/16/23 02/16/23 02/17/23 Range/Units 16:46 19:51 09:23 WBC 12.2 H (3.8-10.6) k/uL RBC 2.18 L (4.30-5.90) m/uL Hgb 7.7 L (13.0-17.5) gm/dL Hct 23.2 L (39.0-53.0) % MCV 106.7 H (80.0-100.0) fL MCH 35.5 H (25.0-35.0) pg RDW 19.0 H (11.5-15.5) % Neutrophils # 10.2 H (1.3-7.7) k/uL Macrocytosis Marked A Chloride (98-107) mmol/L Carbon Dioxide (22-30) mmol/L BUN (9-20) mg/dL Creatinine (0.66-1.25) mg/dL Glucose (74-99) mg/dL POC Glucose (mg/dL) 112 H 131 H (70-110) mg/dL Calcium (8.4-10.2) mg/dL 02/17/23 02/17/23 Range/Units 09:23 11:45 WBC (3.8-10.6) k/uL RBC (4.30-5.90) m/uL Hgb (13.0-17.5) gm/dL Hct (39.0-53.0) % MCV (80.0-100.0) fL MCH (25.0-35.0) pg RDW (11.5-15.5) % Neutrophils # (1.3-7.7) k/uL Macrocytosis Chloride 119 H (98-107) mmol/L Carbon Dioxide 18 L (22-30) mmol/L BUN 21 H (9-20) mg/dL Creatinine 2.02 H (0.66-1.25) mg/dL Glucose 100 H (74-99) mg/dL POC Glucose (mg/dL) 126 H (70-110) mg/dL Calcium 7.7 L (8.4-10.2) mg/dL Assessment and Plan Assessment: Impression: Acute hypoxic respiratory failure secondary to cardiac arrest with recurrent ventricular fibrillation and tachycardia requiring CPR, down time was about 36 minutes. Possible anoxic brain injury , likely mild, considering the patient is recovering well however he remains a relatively slow. possible right lower lobe aspiration pneumonia Severe ischemic cardiomyopathy and LV dysfunction Underlying coronary artery disease and previous stenting of RCA in 1996 Pancreatic cancer Severe weight loss secondary to pancreatic malignancy Chronic anemia Chronic atrial fibrillation, previous unsuccessful cardioversions History of obstructive jaundice secondary to pancreatic cancer and requiring bi liary stenting Benign essential hypertension Severe cachexia/protein calorie malnutrition secondary to pancreatic malignancy Failure to thrive secondary to pancreatic cancer Peripheral vessel occlusive disease Type 2 diabetes without complications Acute digoxin toxicity, resolved. Recommendation: Continue present supportive care measures. Patient was extubated 24 hours ago, tolerated the extubation well. We will likely transfer to the regular medical floor, once a bed is available. Incentive spirometry Physical therapy if possible Ambulation. Advanced diet as tolerated. Agree with DO NOT RESUSCITATE CODE STATUS We'll continue to follow. Time with Patient: Less than 30
--- NOTE | 2023-02-17 13:08 | P.PN ---
Subjective Progress Note Date: 02/17/23 Principal diagnosis: Cardiac arrest with acute hypoxic respiratory failure 68-year-old male patient with an extensive cardiac disease, coronary artery disease, chronic atrial fibrillation and severe ischemic cardiomyopathy in addition to a recent diagnosis of a pancreatic cancer. The patient was has less for A. fib RVR. Earlier this morning, the patient went into cardiac arrest. DRAGAN GARCIA was called at 1131. The patient was immediately resuscitated based on the ACLS protocol. Initial rhythm was ventricular fibrillation with no pulse. Total code time was approximately 36 minutes. Throughout the code, patient had received 6 shocks, initial joules were 150, then escalated to 200 J. Patient received a 300 mg amiodarone bolus, then proceeded 150 mg amiodarone bolus. Patient received multiple pushes of epinephrine. Patient also received 2 g of magnesium sulfate, 1 g of calcium chloride. Patient had return of spontaneous circulation for the first time at 1152, was noted to be in junctional bradycardia and received one push of atropine 1156, loss pulse again and went into V. fib 1157 with CPR resumed. Patient was shocked again for the 6 time at 1158, received 1 g calcium. He again had return of spontaneous circulation 1159 with a pulse, rhythm was junctional rhythm with a heart rate of 57. Patient's blood pressure was cycled and noted to be 172/118. 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 After discussion with school cook, patient was transferred to the intensive care unit for further monitoring. Patient's family was notified by nursing. Patient's attending was also present throughout the code, and signout was given to him upon transfer to the intensive care unit. At this point in time, the patient is intubated on a mechanical ventilator. He is on a propofol running at 40 microvascular kilogram per minutes. Is on assist-control mode of mechanical ventilation at the rate of 16, tidal volume of 400, FiO2 wasn't 100% with PEEP of 5. The initial blood gas showed a pH of 7.22 with a pCO2 of 30 and pO2 more than 400. FiO2 is being weaned. Chest x-ray showed ET tube being in a good location. The patient has a port over the right anterior chest. There is increased opacity around the right perihilar area. The patient currently is hypotensive. The patient is receiving a bolus of nor mal saline 1 L. Blood work is still pending for now. The blood work from yesterday was noted and the patient has a WBC count 9.6 with a hemoglobin of 9.7. Electrolytes are all within normal limits. Normal renal function. His most recent cardiac rhythm is sinus bradycardia with first-degree AV block. The patient was started on amiodarone per cardiology recommendation currently running at 1 mg/m. He is on anticoagulation with Eliquis 5 mg by mouth twice a day. He is also supposed to be on metoprolol which is currently on hold. The patient had a triple-lumen catheter and arterial line catheter inserted in the ICU. He looks very marked emaciated and cachectic Reevaluated today on02/13/2023, patient remains in the ICU intubated and mechanically ventilated. He is on assist control rate of 16 volume 400 FiO2 50% PEEP of 5 ABG showed a pO2 of 215 pCO2 35 pH of 7.38 patient is on propofol at 45 mcg/kg/m, he is also on IV fluid 0.9 normal saline at 1 50 mL per hour. Patient is on Zosyn empirically, neurology consultation is pending, patient had a cardiac arrest and his down time was 36 minutes. Not to mention the patient has underlying metastatic pancreatic carcinoma. His FiO2 was cut down to 40% after reviewing his ABG. Chest x-ray showed, minimal right lower lobe opacity could be atelectasis or could be aspiration pneumonia in nature. WBC count today is 10.4 hemoglobin is 8.6 electrode start normal however his creatinine is 1.31, baseline creatinine prior to the cardiac arrest was 0.890. Patient remains on eliquis, he is also on Zosyn. And his IV fluid is 0.9 normal saline at 1 50 mL per hour. Patient is receiving Protonix for GI prophylaxis. And he will be started on enteral feeding today. Luckily the patient is hemodynamically stable, not requiring any pressors at this point. Nonetheless he is critically ill. And I have advised holding propofol and assess mental status today. Seen by neurology on consultation, CT of the head and EEG are pending. Looking back at his digitoxin level was noted to be elevated 3.1, and that is being addressed by cardiology. Reevaluated today on 02/14/2023, patient remains in the ICU, intubated and mechanically ventilated. Patient is on assist control rate of 16 tidal volume 400 FiO2 40% and PEEP of 5 ABG showed a pO2 of 157 pCO2 36 pH of 7.30 hence we'll decrease FiO2 to 35%. Otherwise no change in ventilator settings. Patient is receiving propofol at 45 mg/kg/m, also receiving IV fluid at 1 50 mL per hour. Vital Hp at [address] mL per [address] Brain CT showed no acute intracranial process chest x-ray showed vague density at the right lung base, possibly atelectasis, or could be early infiltrate/aspiration. Labs today WBC count of 13.8 hemoglobin is 8.2, basic metabolic profile is normal bicarb is 18, patient has hyperchloremic non-anion gap metabolic acidosis. BUN is 14 creatinine 1.67 on slightly worse compared to yesterday. Patient remains on Zosyn empirically, he is also on bronchodilators, and on GI and DVT prophylaxis. Receiving eliquis 5 mg twice a day and is also on pantoprazole Reevaluated today on 02/15/2023, patient remains in the ICU, intubated and mechanically ventilated. Patient is on assist control rate of 16 tidal volume 400 FiO2 40% PEEP of 5. ABG showed a pO2 of 179 pCO2 37 pH of 7.32. Patient remains on IV fluid 0.9 normal saline at 1 50 mL/h propofol at 40 mcg/kg/m vital Hb at 48 mL per hour. Remains empirically on Zosyn for presumptive aspiration pneumonia. After ABG was noted I cut down his FiO2 to 35%, I recommended holding propofol, and should give the patient at least weaning trial if he passes his weaning parameters. WBC count today is 10 hemoglobin is 7.5. Platelets are 1 34,000 ABG on pressure support mode of mechanical ventilation showed a pO2 of 157 pCO2 37 pH of 7.32 renal functioning seems to be a bit worse today, BUN is up to 16 and creatinine up to 1.76, I believe the patient may have sustained acute tubular necrosis from his cardiac arrest Reevaluated on 02/16/2023, patient extubated, remains on 2 L nasal cannula, not in any distress. CODE STATUS has been changed to DO NOT RESUSCITATE CODE STATUS, patient is not to be reintubated. Patient denies any specific complaints, no pain, no shortness of breath, no cough, no wheezing. His CBC showed a WBC count of 15.7 hemoglobin 7.2. Basic metabolic profile is normal bicarb is a bit low at 17. Renal profile is about the same with creatinine of 1.76, and is basically unchanged in the last 2-3 days will plan to transfer the patient out of the ICU to a regular medical floor Reevaluated today on 02/17/2023, patient is on the cardiac floor, patient is doing fairly well however he is a bit confused, he knows where he is/[facility], but he thinks it is 1922, patient is on room air and O2 sats is 94% WBC count is 12.2 hemoglobin is 7.7. Basic metabolic profile is basically unremarkable except for slightly elevated creatinine of 2.02, bicarb remains 18, patient has a picture of hyperchloremic non-anion gap metabolic acidosis. Patient remains on Zosyn for presumptive aspiration pneumonia during his cardiac arrest/CPR. Neurologically the patient seems to be showing better improvement than expected Objective - Vital Signs Vital signs: Vital Signs Temp 98.2 F 02/17/23 11:06 Pulse 80 02/17/23 11:39 Resp 18 02/17/23 11:06 BP 143/63 02/17/23 11:06 Pulse Ox 94 L 02/17/23 11:06 FiO2 40 02/15/23 12:00 Intake & Output 02/16/23 02/17/23 02/17/23 18:59 06:59 18:59 Intake Total 822 236 Output Total 925 150 Balance -103 -150 236 Weight 87.8 kg Intake: IV 400 Piperacillin-Tazobactam 3 100 .375 gm In Sodium Chloride 0.9% 100 ml @ 25 mls/hr IVPB Q8HR ANDREW Rx# :[id number] Sodium Chloride 0.9% 1, 300 000 ml @ 75 mls/hr IV . [id number] ANDREW Rx#:[id number] Intake, IV Titration 200 Amount Magnesium Sulfate-D5w Pmx 200 1 gm In Dextrose/Water 1 100ml.bag @ 100 mls/hr IVPB Q1H ANDREW Rx#: [id number] Oral 222 236 Output: Urine 925 150 Stool 0 Other: Voiding Method Indwelling Catheter Indwelling Catheter ABP, PAP, CO, CI - Last Documented Arterial Blood Pressure 162/62 - Exam Physical Exam: Revealed a 68-year-old white male in no distress, on room air. Head: Atraumatic normocephalic. HEENT:[Neck is supple.] [No neck masses.] [No thyromegaly.] [No JVD.] Chest: [Clear throughout, no crackles, no rhonchi, no wheezes.] Cardiac Exam: [Irregular irregular rhythm. Normal S1 and S2, no S3 gallop, 2/6 systolic ejection murmur throughout the precordium. Abdomen: [Soft, nontender, no megaly, no rebound, no guarding, normal bowel sounds.] Extremities: [No clubbing, no edema, no cyanosis.] Neurological Exam: Alert and oriented 3, a bit slow otherwise unremarkable. Patient is a bit confused and he knows what he is/[facility] but he thinks is [address] Psychiatric: Depressed mood and flat affect, normal mental status Skin: No rashes - Labs CBC & Chem 7: 02/17/23 09:23 02/17/23 09:23 Labs: Abnormal Lab Results - Last 24 Hours (Table) 02/16/23 02/16/23 02/17/23 Range/Units 16:46 19:51 09:23 WBC 12.2 H (3.8-10.6) k/uL RBC 2.18 L (4.30-5.90) m/uL Hgb 7.7 L (13.0-17.5) gm/dL Hct 23.2 L (39.0-53.0) % MCV 106.7 H (80.0-100.0) fL MCH 35.5 H (25.0-35.0) pg RDW 19.0 H (11.5-15.5) % Neutrophils # 10.2 H (1.3-7.7) k/uL Macrocytosis Marked A Chloride (98-107) mmol/L Carbon Dioxide (22-30) mmol/L BUN (9-20) mg/dL Creatinine (0.66-1.25) mg/dL Glucose (74-99) mg/dL POC Glucose (mg/dL) 112 H 131 H (70-110) mg/dL Calcium (8.4-10.2) mg/dL 02/17/23 02/17/23 Range/Units 09:23 11:45 WBC (3.8-10.6) k/uL RBC (4.30-5.90) m/uL Hgb (13.0-17.5) gm/dL Hct (39.0-53.0) % MCV (80.0-100.0) fL MCH (25.0-35.0) pg RDW (11.5-15.5) % Neutrophils # (1.3-7.7) k/uL Macrocytosis Chloride 119 H (98-107) mmol/L Carbon Dioxide 18 L (22-30) mmol/L BUN 21 H (9-20) mg/dL Creatinine 2.02 H (0.66-1.25) mg/dL Glucose 100 H (74-99) mg/dL POC Glucose (mg/dL) 126 H (70-110) mg/dL Calcium 7.7 L (8.4-10.2) mg/dL Assessment and Plan Assessment: Impression: Acute hypoxic respiratory failure secondary to cardiac arrest with recurrent ventricular fibrillation and tachycardia requiring CPR, down time was about 36 minutes. Possible anoxic brain injury , likely mild, considering the patient is recovering well however he remains a relatively slow. possible right lower lobe aspiration pneumonia Severe ischemic cardiomyopathy and LV dysfunction Underlying coronary artery disease and previous stenting of RCA in 1996 Pancreatic cancer Severe weight loss secondary to pancreatic malignancy Chronic anemia Chronic atrial fibrillation, previous unsuccessful cardioversions History of obstructive jaundice secondary to pancreatic cancer and requiring biliary stenting Benign essential hypertension Severe cachexia/protein calorie malnutrition secondary to pancreatic malignancy Failure to thrive secondary to pancreatic cancer Peripheral vessel occlusive disease Type 2 diabetes without complications Acute digoxin toxicity, resolved. Recommendation: Continue present supportive care measures. Patient was extubated 48 hours ago, and seems to be doing well tolerating the extubation well Incentive spirometry Physical therapy if possible Ambulation. Advanced diet as tolerated. Agree with DO NOT RESUSCITATE CODE STATUS Considering his overall medical problems, prognosis remains extremely poor and guarded especially with his history of pancreatic carcinoma We'll continue to follow. Time with Patient: Less than 30
--- NOTE | 2023-02-17 13:44 | P.PN ---
Subjective Progress Note Date: 02/17/23 Principal diagnosis: hx pancreatic cancer, thromobocytopenia At today's visit patient is working with PT. He reports feeling weak and persisting but improved abdominal pain. denies nausea vomiting diarrhea. He is tolerating oral intake with increased appetite. Plans for [facility] upon discharge. Objective - Vital Signs Vital signs: Vital Signs Temp 98.2 F 02/17/23 11:06 Pulse 80 02/17/23 11:39 Resp 18 02/17/23 11:06 BP 143/63 02/17/23 11:06 Pulse Ox 94 L 02/17/23 11:06 FiO2 40 02/15/23 12:00 Intake & Output 02/16/23 02/17/23 02/17/23 18:59 06:59 18:59 Intake Total 822 236 Output Total 925 150 Balance -103 -150 236 Weight 87.8 kg Intake: IV 400 Piperacillin-Tazobactam 3 100 .375 gm In Sodium Chloride 0.9% 100 ml @ 25 mls/hr IVPB Q8HR [facility] Rx# :[id number] Sodium Chloride 0.9% 1, 300 000 ml @ 75 mls/hr IV . [id number] [facility] Rx#:[id number] Intake, IV Titration 200 Amount Magnesium Sulfate-D5w Pmx 200 1 gm In Dextrose/Water 1 100ml.bag @ 100 mls/hr IVPB Q1H [facility] Rx#: [id number] Oral 222 236 Output: Urine 925 150 Stool 0 Other: Voiding Method Indwelling Catheter Indwelling Catheter ABP, PAP, CO, CI - Last Documented Arterial Blood Pressure 162/62 - Constitutional General appearance: Present: no acute distress, thin - EENT Eyes: Present: anicteric sclerae, EOMI ENT: Present: hearing grossly normal - Respiratory Details: Breathing even and unlabored - Cardiovascular Details: skin warm and dry - Gastrointestinal General gastrointestinal: Present: soft. Absent: tenderness - Integumentary Integumentary: Present: pale - Neurologic Neurologic Comment(s): grossly intact - Musculoskeletal Musculoskeletal: Present: generalized weakness - Psychiatric Psychiatric: Present: A&O x's 3, appropriate affect, intact judgment & insight - Labs CBC & Chem 7: 02/17/23 09:23 02/17/23 09:23 Labs: Abnormal Lab Results - Last 24 Hours (Table) 0402/16/23 02/17/23 Range/Units 16:46 19:51 09:23 WBC 12.2 H (3.8-10.6) k/uL RBC 2.18 L (4.30-5.90) m/uL Hgb 7.7 L (13.0-17.5) gm/dL Hct 23.2 L (39.0-53.0) % MCV 106.7 H (80.0-100.0) fL MCH 35.5 H (25.0-35.0) pg RDW 19.0 H (11.5-15.5) % Neutrophils # 10.2 H (1.3-7.7) k/uL Macrocytosis Marked A Chloride (98-107) mmol/L Carbon Dioxide (22-30) mmol/L BUN (9-20) mg/dL Creatinine (0.66-1.25) mg/dL Glucose (74-99) mg/dL POC Glucose (mg/dL) 112 H 131 H (70-110) mg/dL Calcium (8.4-10.2) mg/dL 02/17/23 02/17/23 Range/Units 09:23 11:45 WBC (3.8-10.6) k/uL RBC (4.30-5.90) m/uL Hgb (13.0-17.5) gm/dL Hct (39.0-53.0) % MCV (80.0-100.0) fL MCH (25.0-35.0) pg RDW (11.5-15.5) % Neutrophils # (1.3-7.7) k/uL Macrocytosis Chloride 119 H (98-107) mmol/L Carbon Dioxide 18 L (22-30) mmol/L BUN 21 H (9-20) mg/dL Creatinine 2.02 H (0.66-1.25) mg/dL Glucose 100 H (74-99) mg/dL POC Glucose (mg/dL) 126 H (70-110) mg/dL Calcium 7.7 L (8.4-10.2) mg/dL Assessment and Plan (1) Atrial fibrillation with RVR Current Visit: Yes Status: Acute Priority: High Code(s): I48.91 - UNSPECIFIED ATRIAL FIBRILLATION SNOMED Code(s): 758905601301080 (2) Diarrhea Current Visit: Yes Status: Acute Priority: High Code(s): R19.7 - DIARRHEA, UNSPECIFIED SNOMED Code(s): 30134626 (3) Thrombocytopenia Current Visit: Yes Status: Acute Priority: High Code(s): D69.6 - THROMBOCY TOPENIA, UNSPECIFIED SNOMED Code(s): 549623057 Plan: A-fib -New onset -VQ low probability for PE -Doppler of BLE is neg for DVT -Cardiology following -on eliquis on admit -Over the weekend patient went into v-fib and cardiac arrest and CPR was performed with ROSC. Pt was transferred to ICU, and was placed on ventilation. He has since been extubated and has be transferred to cardiac floor. Pulmonology and cardiology following anemia and thrombocytopenia -2/2 chemo -cont anticoagulation as long as plt >50k. Platelets stable -Hemoglobin 7.7, no reported episodes of bleeding -transfuse for Hgb<7, plt <50K so pt can remain on anticoagulation Diarrhea -Diarrhea resolved. 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 Plan is to get patient to surgery. Chemo is curative intent. -Agree with aggressive management of patient post cardiac arrest. -dose adjustments will be necessary for pt to tolerate more treatment to get to surgery. This will be taken care of once discharged when pt f/u with Primary Oncologist -Plan for rehab upon discharge, will plan for reevaluation upon d/c from rehab to assess readiness to resume chemo tx
[2023-02-17] MEDS: NOREPINEPHRINE 8 MG in SODIUM CHLORIDE 0.9% 250 ML IV SCH (15:25)
[2023-02-17 17:06] LABS: Glucose,Whole Blood 128 mg/dL (70-110)
[2023-02-17 19:45] LABS: Glucose,Whole Blood 152 mg/dL (70-110)
--- NOTE | 2023-02-17 20:46 | P.PN ---
Subjective Progress Note Date: 02/17/23 This is a pleasant 67 years old male with multiple medical problems who was admitted initially on 02/01 with shortness of breath and borderline blood pressure 105/78 thought secondary to A. fib and RVR as his heart rate was around 133. 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 Patient with recent history of pancreatic cancer diagnosed last September and his been having chronic abdominal pain in the epigastrium about 7/10 similar since then. He has some mouth sores and bicytopenia secondary to recent chemotherapy, oncology team on the case. He is kept nothing by mouth and TPN is running partially because of his mouth sores. He still have bouts of diarrhea but states that he started getting better today and more formed. C. diff is negative. Patient says that his weakness is better than last week, he fell 2 days ago, Cedergren was negative at that time. He is fully awake and oriented denies chest pain or dyspnea. He still feels generally weak and he still have abdominal pain as above. No urinary complaints. Vitas looks stable. Patient is afebrile. Hemoglobin 8.4 and platelet count improved to 83. CT of the abdomen and pelvis showing cholelithiasis with biliary stent in place and fluid distention of the colon was closed with diarrhea. Patient currently on D5 normal saline at 50 mL per hour and Eliquis 5 mg. We will check vitamin B12 and vitamin D. Also will check stool for elastase 02/09/2023 Patient pulled his PICC line accidentally today. Patient is not confused. Patient does swallow evaluation and I agree with starting him on liquid diet with advanced as tolerated. His mouth sores have resolved significantly and they are minimum in his examination today. His A. fib is in control on metoprolol higher dose 100 mg and Eliquis 5 mg BMP is a stable Check labs in the morning including platelet count and hemoglobin and BMP. Patient says that diarrhea has significantly improved. We still waiting for elastase to check for pancreatic function. 02/10/2023 Patient diarrhea has stopped, his heart rate and A. fib has been controlled which were the 2 main acute reasons he came into the hospital with. Patient still with chronic problems since last September including loss of energy, epigastric and upper abdominal pain and severe anorexia related to his cancer. Patient is open to go to rehab however his main problem is inability to eat very at Oncology team on the case. We checked vitamin B12 more than 3600 which is very high level above the limits therefore we discontinued his vitamin B12 pills Vitamin B6 is low last than 5 at 4. Therefore was set replacement therapy. 02/11/2023 Patient clinically is the same, no significant diarrhea, abdominal pain is chronic. Still has low appetite Today I have a discussion with the patient about his eating and anorexia and he is willing to try soft diet today. Therefore we don't advance his liquid diet until soft diet and keep monitoring The meantime we will hold Imodium so we can monitor his diarrhea. Discussed with staff to check for still elastase. Oncology team on the case 02/12/2023 Today patient developed cardiac arrest and CODE BLUE was called. He underwent CPR several rounds and had cardiac rhythm of V. fib and V. tach. Patient regained blood pressure and pulse rate, He is intubated and sedated and transferred to the ICU. Patient was examined at bedside during the code, EKG showing ischemic changes, rhythm is bradycardic and patient was hypotensive. Pulmonary/critical care team and cardiology team evaluated the patient Continue with amiodarone, normal saline, antibiotic with Zosyn. I discussed the case with cardiology team, patient is a known severe ischemic cardiomyopathy, he is not a candidate for cardiac cath, discussed the prognosis with oncology team is recommended. I discussed the case with the sister Halle over the phone who told me she is the next of kin, and there are no other family members to discuss the case with, the case was discussed with her in detail, hospital course as well as today's event are explained to her. She referred to his advance directive stating no extraheroic measures, she confirms to me he is DO NOT RESUSCITATE, also she would like to talk to hospice team. consult for hospice for information is placed Patient is a known pancreatic cancer case, with severe anorexia since September 2022 as he stated, with significant weight loss, patient did not eat this morning, confirmed with the bedside nurse. Status post 3 cycles of chemotherapy. Prognosis remains guarded, Also we will consult oncology team for prognosis. I discussed the case with the ICU bed side nurse, he has advanced directive and Halle is name as his medical advocate. 02/13/2023 Patient is seen in follow-up today currently intubated in the ICU on mechanical ventilation and FiO2 is 40% with a PEEP of 5. Multiple medical consultations including cardiology, pulmonary, oncology following. Patient was status post cardiac arrest in a hospice consult was placed although family does not want to pursue this at this time and are agreeable to no code. Follow-up labs pending and overall prognosis remains extremely guarded. Patient is undergoing sedation holidays to assess mentation and neurology was consulted with a brain CT and EEG ordered and pending. Patient is currently afebrile with no reported chest pain or shortness of breath. No plans for weaning today. 02/14/2023 Patient seen and evaluated in follow-up today continues to be on mechanical ventilation with multiple medical consultations following including neurology. CT brain showing no acute process an EEG continues to be abnormal although no epileptiform discharges noted. Patient undergoing sedation holidays and will follow commands. Pulmonary following and will continue monitor closely for weaning parameters. A.m. labs currently pending and will follow-up and recom mended replace electrolytes per protocol. Overall prognosis remains guarded at this time. 02/15/2023 Patient is seen this morning in the ICU continues on mechanical ventilation with consideration of weaning and tolerating sedation holidays. Patient currently on vent with an FiO2 of 40% and PEEP is 5. Chest x-rays this morning shows no evidence of pleural effusion or pneumothorax and support lines in appropriate position. Patient also continues on IV Zosyn empirically with concerns of aspir ation pneumonia. White count is normal at 10 him a hemoglobin is 7.5, platelets are 134, sodium 145 with a potassium of 3.6 and creatinine is currently 1.76, magnesium is 1.8 and being replaced currently. 02/16/2023 Patient continues to be in the ICU with multiple medical consultations following. Patient is a downgrade and awaiting a bed availability on 3 S. Patient was extubated successfully currently maintained on as needed nasal cannula with good oxygen saturation. Patient be started on full liquid diet and would recommend aspiration precautions. Patient is continued on Zosyn and will continue for now. Recommend follow-up labs in the a.m. and patient will need physical therapy evaluation. Patient with significant weakness and prolonged hospitalization. Patient is afebrile denies chest pain or shortness of breath. 02/17/2023 Patient is seen and evaluated in follow-up this morning with multiple medical consultations following. Patient has been transferred out of the ICU maintained on 3 S. cardiac stepdown and continues with significant weakness. Patient was recently extubated a few days ago and denies shortness of breath. Patient is being evaluated with social work following and planning for going to [facility] once cleared by consultations. Patient currently tolerating diet and would recommend aspiration precautions. Patient is maintained on IV Zosyn and will co ntinue. Kidney functions elevated and will monitor closely. Magnesium was 1.8 today and will replace per protocol and follow-up with labs in the a.m. Review of systems: Constitutional: No reports of fatigue, fever, or chills Cardiovascular: No reports of chest pain or palpitations Respiratory: No reports of shortness of breath or cough GI: No reports of nausea, vomiting, or diarrhea : No reports of dysuria or retention Neurovascular: reports of significant weakness All medications have been reviewed Physical exam: GENERAL: The patient is awake, alert and oriented 3, well-developed, well- nourished, pale, ill appearing HEENT: Pupils are round and equally reacting to light. EOMI. No scleral icterus. No conjunctival pallor. Normocephalic, atraumatic. No pharyngeal erythema. No thyromegaly. CARDIOVASCULAR: S1 and S2 muffled PULMONARY: Diminished breath sounds bilaterally with no wheezing and some rhonchi noted. Patient is not Tachypneic ABDOMEN: Soft, no rebound tenderness or guarding, nondistended, normoactive bowel sounds. No palpable organomegaly. MUSCULOSKELETAL: No joint swelling or deformity. EXTREMITIES: No cyanosis, clubbing, or pedal edema. Some mild generalized edema noted of lower extremities NEUROLOGICAL: Patient is alert and oriented 3, no focal deficits noted. Diffusely weak SKIN: No rashes. no petechiae. Pale Assessment: Status post cardiac arrest and CPR with return of spontaneous circulation, cardiac arrest while hospitalized and down time was approximately 36 minutes Hypotension and bradycardia secondary to above, improving Acute hypoxemic respiratory failure requiring intubation and mechanical ventilation, extubated successfully on 02/15/2023 2 L via nasal cannula Possible right lower lobe aspiration pneumonia A. fib and RVR, present on admission, currently rate is better controlled Pancreatic cancer status post chemotherapy Severe anorexia, since last September, most likely related to his cancer Chronic abdominal pain secondary to above. 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 Patient has been transferred out of the ICU currently on room air with occasional 2 L via nasal cannula maintaining oxygen saturations. Cardiology as well as pulmonary following the medications have been resumed and able to tolerate oral intake Advancing diet as tolerated Patient is continued on IV antibiotics in the form of Zosyn with concerns of aspiration pneumonia and will continue Patient with significant weakness would recommend physical therapy daily with case management/social work following and planning on going to [facility] once stabilized and discharge Will be discussed further with cardiology about discharge planning Magnesium slightly low today at 1.8 and will replace per protocol Recommend follow-up labs in the a.m. Due to multiple complex medical issues, prognosis is guarded The impression and plan of care has been dictated by Jasmina Toledo, Nurse Practitioner as directed. Dr. Kade MD I have performed a history and examination and MDM of this patient, discussed the same with the dictator, and agree with the dictator's assessment and plan as written ,documented as a scribe. Based on total visit time, I have performed more than 50% of the visit. Objective - Vital Signs Vital signs: Vital Signs Temp 98.2 F 02/17/23 11:06 Pulse 80 02/17/23 15:25 Resp 18 02/17/23 11:06 BP 143/63 02/17/23 11:06 Pulse Ox 94 L 02/17/23 11:06 FiO2 40 02/15/23 12:00 Intake & Output 02/16/23 02/17/23 02/17/23 18:59 06:59 18:59 Intake Total 822 236 Output Total 925 150 Balance -103 -150 236 Weight 87.8 kg Intake: IV 400 Piperacillin-Tazobactam 3 100 .375 gm In Sodium Chloride 0.9% 100 ml @ 25 mls/hr IVPB Q8HR [facility] Rx# :[id number] Sodium Chloride 0.9% 1, 300 000 ml @ 75 mls/hr IV . [id number] [facility] Rx#:[id number] Intake, IV Titration 200 Amount Magnesium Sulfate-D5w Pmx 200 1 gm In Dextrose/Water 1 100ml.bag @ 100 mls/hr IVPB Q1H [facility] Rx#: [id number] Oral 222 236 Output: Urine 925 150 Stool 0 Other: Voiding Method Indwelling Catheter Indwelling Catheter ABP, PAP, CO, CI - Last Documented Arterial Blood Pressure 162/62 - Labs CBC & Chem 7: 02/17/23 09:23 02/17/23 09:23 Labs: Abnormal Lab Results - Last 24 Hours (Table) 02/16/23 02/16/23 02/17/23 Range/Units 16:46 19:51 09:23 WBC 12.2 H (3.8-10.6) k/uL RBC 2.18 L (4.30-5.90) m/uL Hgb 7.7 L (13.0-17.5) gm/dL Hct 23.2 L (39.0-53.0) % MCV 106.7 H (80.0-100.0) fL MCH 35.5 H (25.0-35.0) pg RDW 19.0 H (11.5-15.5) % Neutrophils # 10.2 H (1.3-7.7) k/uL Macrocytosis Marked A Chloride (98-107) mmol/L Carbon Dioxide (22-30) mmol/L BUN (9-20) mg/dL Creatinine (0.66-1.25) mg/dL Glucose (74-99) mg/dL POC Glucose (mg/dL) 112 H 131 H (70-110) mg/dL Calcium (8.4-10.2) mg/dL 02/17/23 02/17/23 Range/Units 09:23 11:45 WBC (3.8-10.6) k/uL RBC (4.30-5.90) m/uL Hgb (13.0-17.5) gm/dL Hct (39.0-53.0) % MCV (80.0-100.0) fL MCH (25.0-35.0) pg RDW (11.5-15.5) % Neutrophils # (1.3-7.7) k/uL Macrocytosis Chloride 119 H (98-107) mmol/L Carbon Dioxide 18 L (22-30) mmol/L BUN 21 H (9-20) mg/dL Creatinine 2.02 H (0.66-1.25) mg/dL Glucose 100 H (74-99) mg/dL POC Glucose (mg/dL) 126 H (70-110) mg/dL Calcium 7.7 L (8.4-10.2) mg/dL
[2023-02-17] MEDS: PRAVASTATIN SODIUM 20 MG TAB PO SCH (20:52)
[2023-02-18] MEDS: PIPERACILLIN-TAZOBACTAM 3.375 GM in SODIUM CHLORIDE 0.9% 100 ML IVPB SCH ×4 (00:03→23:23)
[2023-02-18] MEDS: SODIUM CHLORIDE 0.9% 1,000 ML IV SCH ×3 (00:04→23:23)
[2023-02-18] MEDS: HYDROcodone/APAP 10-325MG 1 EACH TAB PO PRN ×5 (02:26→22:01)
[2023-02-18 06:10] LABS: Glucose,Whole Blood 180 mg/dL (70-110)
[2023-02-18] MEDS: INSULIN ASPART (NovoLOG) 100 UNIT/ML VIAL SQ SCH ×4 (06:14→20:12)
[2023-02-18 07:13] LABS: Anisocytosis Slight; HCT 24.9 % (39.0-53.0); HGB 7.9 gm/dL (13.0-17.5); Hypochromasia Marked; MCH 34.6 pg (25.0-35.0); MCHC 31.6 g/dL (31.0-37.0); MCV 109.5 fL (80.0-100.0); Macrocytosis Marked; Mean Platelet Volume 8.3; Platelet Count 182 k/uL (150-450); Poikilocytosis Moderate; RBC 2.27 m/uL (4.30-5.90); RDW 18.7 % (11.5-15.5); WBC 12.4 k/uL (3.8-10.6)
[2023-02-18 07:44] LABS: Calcium 7.9 mg/dL (8.4-10.2); Magnesium 1.9 mg/dL (1.6-2.3); Potassium 4.6 mmol/L (3.5-5.1)
[2023-02-18] MEDS: IPRATROPIUM-ALBUTEROL 3 ML NEB INHALATION SCH ×4 (09:02→20:39)
[2023-02-18] MEDS: PANTOPRAZOLE 40 MG/10 ML VIAL IV SCH (09:15)
[2023-02-18] MEDS: PYRIDOXINE 50 MG TAB PO SCH ×2 (09:15→20:14)
[2023-02-18] MEDS: CHOLECALCIFEROL 25 MCG (1000 IU) TABLET PO SCH (09:15)
[2023-02-18] MEDS: APIXABAN 5 MG TAB PO SCH ×2 (09:15→20:14)
[2023-02-18] MEDS: METOPROLOL TARTRATE 50 MG TAB PO SCH ×2 (09:15→20:14)
[2023-02-18] MEDS: ISOSORBIDE MONONITRATE ER 30 MG TAB.ER.24H PO SCH (09:16)
[2023-02-18 10:55] LABS: Eosinophils # (M) 0.25 k/uL (0-0.7); Lymphocytes # (M) 0.99 k/uL (1.0-4.8); Myelocytes # (M) 0.12 k/uL (0); Myelocytes % 1 %; Neutrophils # (M) 10.66 k/uL (1.3-7.7); Neutrophils % (M) 86 %; Nucleated Red Blood Cells 0 /100 WBC (0-0); Total Cells Counted 200
[2023-02-18 11:30] LABS: Glucose,Whole Blood 121 mg/dL (70-110)
--- NOTE | 2023-02-18 13:02 | P.PN ---
Subjective Progress Note Date: 02/18/23 Principal diagnosis: Cardiac arrest with acute hypoxic respiratory failure 68-year-old male patient with an extensive cardiac disease, coronary artery disease, chronic atrial fibrillation and severe ischemic cardiomyopathy in addition to a recent diagnosis of a pancreatic cancer. The patient was has less for A. fib RVR. Earlier this morning, the patient went into cardiac arrest. DRAGAN GARCIA was called at 1131. The patient was immediately resuscitated based on the ACLS protocol. Initial rhythm was ventricular fibrillation with no pulse. Total code time was approximately 36 minutes. Throughout the code, patient had received 6 shocks, initial joules were 150, then escalated to 200 J. Patient received a 300 mg amiodarone bolus, then proceeded 150 mg amiodarone bolus. Patient received multiple pushes of epinephrine. Patient also received 2 g of magnesium sulfate, 1 g of calcium chloride. Patient had return of spontaneous circulation for the first time at 1152, was noted to be in junctional bradycardia and received one push of atropine 1156, loss pulse again and went into V. fib 1157 with CPR resumed. Patient was shocked again for the 6 time at 1158, received 1 g calcium. He again had return of spontaneous circulation 1159 with a pulse, rhythm was junctional rhythm with a heart rate of 57. Patient's blood pressure was cycled and noted to be 172/118. 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 After discussion with refrigeration mechanic helper, patient was transferred to the intensive care unit for further monitoring. Patient's family was notified by nursing. Patient's attending was also present throughout the code, and signout was given to him upon transfer to the intensive care unit. At this point in time, the patient is intubated on a mechanical ventilator. He is on a propofol running at 40 microvascular kilogram per minutes. Is on assist-control mode of mechanical ventilation at the rate of 16, tidal volume of 400, FiO2 wasn't 100% with PEEP of 5. The initial blood gas showed a pH of 7.22 with a pCO2 of 30 and pO2 more than 400. FiO2 is being weaned. Chest x-ray showed ET tube being in a good location. The patient has a port over the right anterior chest. There is increased opacity around the right perihilar area. The patient currently is hypotensive. The patient is receiving a bolus of nor mal saline 1 L. Blood work is still pending for now. The blood work from yesterday was noted and the patient has a WBC count 9.6 with a hemoglobin of 9.7. Electrolytes are all within normal limits. Normal renal function. His most recent cardiac rhythm is sinus bradycardia with first-degree AV block. The patient was started on amiodarone per cardiology recommendation currently running at 1 mg/m. He is on anticoagulation with Eliquis 5 mg by mouth twice a day. He is also supposed to be on metoprolol which is currently on hold. The patient had a triple-lumen catheter and arterial line catheter inserted in the ICU. He looks very marked emaciated and cachectic Reevaluated today on02/13/2023, patient remains in the ICU intubated and mechanically ventilated. He is on assist control rate of 16 volume 400 FiO2 50% PEEP of 5 ABG showed a pO2 of 215 pCO2 35 pH of 7.38 patient is on propofol at 45 mcg/kg/m, he is also on IV fluid 0.9 normal saline at 1 50 mL per hour. Patient is on Zosyn empirically, neurology consultation is pending, patient had a cardiac arrest and his down time was 36 minutes. Not to mention the patient has underlying metastatic pancreatic carcinoma. His FiO2 was cut down to 40% after reviewing his ABG. Chest x-ray showed, minimal right lower lobe opacity could be atelectasis or could be aspiration pneumonia in nature. WBC count today is 10.4 hemoglobin is 8.6 electrode start normal however his creatinine is 1.31, baseline creatinine prior to the cardiac arrest was 0.890. Patient remains on eliquis, he is also on Zosyn. And his IV fluid is 0.9 normal saline at 1 50 mL per hour. Patient is receiving Protonix for GI prophylaxis. And he will be started on enteral feeding today. Luckily the patient is hemodynamically stable, not requiring any pressors at this point. Nonetheless he is critically ill. And I have advised holding propofol and assess mental status today. Seen by neurology on consultation, CT of the head and EEG are pending. Looking back at his digitoxin level was noted to be elevated 3.1, and that is being addressed by cardiology. Reevaluated today on 02/14/2023, patient remains in the ICU, intubated and mechanically ventilated. Patient is on assist control rate of 16 tidal volume 400 FiO2 40% and PEEP of 5 ABG showed a pO2 of 157 pCO2 36 pH of 7.30 hence we'll decrease FiO2 to 35%. Otherwise no change in ventilator settings. Patient is receiving propofol at 45 mg/kg/m, also receiving IV fluid at 1 50 mL per hour. Vital Hp at 20 mL per hour. Brain CT showed no acute intracranial process chest x-ray showed vague density at the right lung base, possibly atelectasis, or could be early infiltrate/aspiration. Labs today WBC count of 13.8 hemoglobin is 8.2, basic metabolic profile is normal bicarb is 18, patient has hyperchloremic non-anion gap metabolic acidosis. BUN is 14 creatinine 1.67 on slightly worse compared to yesterday. Patient remains on Zosyn empirically, he is also on bronchodilators, and on GI and DVT prophylaxis. Receiving eliquis 5 mg twice a day and is also on pantoprazole Reevaluated today on 02/15/2023, patient remains in the ICU, intubated and mechanically ventilated. Patient is on assist control rate of 16 tidal volume 400 FiO2 40% PEEP of 5. ABG showed a pO2 of 179 pCO2 37 pH of 7.32. Patient remains on IV fluid 0.9 normal saline at 1 50 mL/h propofol at 40 mcg/kg/m vital Hb at 48 mL per hour. Remains empirically on Zosyn for presumptive aspiration pneumonia. After ABG was noted I cut down his FiO2 to 35%, I recommended holding propofol, and should give the patient at least weaning trial if he passes his weaning parameters. WBC count today is 10 hemoglobin is 7.5. Platelets are 1 34,000 ABG on pressure support mode of mechanical ventilation showed a pO2 of 157 pCO2 37 pH of 7.32 renal functioning seems to be a bit worse today, BUN is up to 16 and creatinine up to 1.76, I believe the patient may have sustained acute tubular necrosis from his cardiac arrest Reevaluated on 02/16/2023, patient extubated, remains on 2 L nasal cannula, not in any distress. CODE STATUS has been changed to DO NOT RESUSCITATE CODE STATUS, patient is not to be reintubated. Patient denies any specific complaints, no pain, no shortness of breath, no cough, no wheezing. His CBC showed a WBC count of 15.7 hemoglobin 7.2. Basic metabolic profile is normal bicarb is a bit low at 17. Renal profile is about the same with creatinine of 1.76, and is basically unchanged in the last 2-3 days will plan to transfer the patient out of the ICU to a regular medical floor Reevaluated today on 02/17/2023, patient is on the cardiac floor, patient is doing fairly well however he is a bit confused, he knows where he is/[facility], but he thinks it is 1922, patient is on room air and O2 sats is 94% WBC count is 12.2 hemoglobin is 7.7. Basic metabolic profile is basically unremarkable except for slightly elevated creatinine of 2.02, bicarb remains 18, patient has a picture of hyperchloremic non-anion gap metabolic acidosis. Patient remains on Zosyn for presumptive aspiration pneumonia during his cardiac arrest/CPR. Neurologically the patient seems to be showing better improvement than expected Reevaluated today on 02/18/2023, patient is doing well, relatively asymptomatic, his mentation seems to be improving. Patient is on room air with O2 saturation ranging between 94 up to 100%, blood pressure is stable 123/73, patient is not in any distress. Patient seems to have recovered better than expected from his cardiac arrest and anoxic brain injury. Labs today showed relatively normal CBC except for hemoglobin of 7.9, basic metabolic profile is normal BUN is 21 creatinine 2.01 Objective - Vital Signs Vital signs: Vital Signs Temp 98.0 F 02/18/23 11:57 Pulse 80 02/18/23 12:27 Resp 16 02/18/23 11:57 BP 123/74 02/18/23 11:57 Pulse Ox 94 L 02/18/23 11:57 FiO2 40 02/15/23 12:00 Intake & Output 02/17/23 02/18/23 02/18/23 18:59 06:59 18:59 Intake Total 236 Output Total 650 850 Balance -414 -850 Intake: Oral 236 Output: Urine 650 850 Other: Voiding Method Indwelling Catheter Indwelling Catheter Indwelling Catheter ABP, PAP, CO, CI - Last Documented Arterial Blood Pressure 162/62 - Exam Physical Exam: Revealed a 68-year-old white male in no distress, on room air. O2 saturation 94% Head: Atraumatic normocephalic. HEENT:[Neck is supple.] [No neck masses.] [No thyromegaly.] [No JVD.] Chest: [Clear throughout, no crackles, no rhonchi, no wheezes.] Cardiac Exam: [Irregular irregular rhythm. Normal S1 and S2, no S3 gallop, 2/6 systolic ejection murmur throughout the precordium. Abdomen: [Soft, nontender, no megaly, no rebound, no guarding, normal bowel sounds.] Extremities: [No clubbing, no edema, no cyanosis.] Neurological Exam: Alert and oriented 3, mentation today seems to be much better, he is alert oriented 3, he knew where he was, and new years a year and he knew the name of the president psychatric: Depressed mood and flat affect, normal mental status Skin: No rashes - Labs CBC & Chem 7: 02/18/23 05:34 02/18/23 05:34 Labs: Abnormal Lab Results - Last 24 Hours (Table) 02/17/23 02/17/23 02/18/23 Range/Units 17:02 19:42 05:34 WBC (3.8-10.6) k/uL RBC (4.30-5.90) m/uL Hgb (13.0-17.5) gm/dL Hct (39.0-53.0) % MCV (80.0-100.0) fL RDW (11.5-15.5) % Neutrophils # (Manual) (1.3-7.7) k/uL Lymphocytes # (Manual) (1.0-4.8) k/uL Myelocytes # (Manual) (0) k/uL Macrocytosis Chloride 119 H (98-107) mmol/L Carbon Dioxide 16 L (22-30) mmol/L BUN 21 H (9-20) mg/dL Creatinine 2.01 H (0.66-1.25) mg/dL POC Glucose (mg/dL) 128 H 152 H (70-110) mg/dL Calcium 7.9 L (8.4-10.2) mg/dL 02/18/23 02/18/23 02/18/23 Range/Units 05:34 06:09 11:29 WBC 12.4 H (3.8-10.6) k/uL RBC 2.27 L (4.30-5.90) m/uL Hgb 7.9 L (13.0-17.5) gm/dL Hct 24.9 L (39.0-53.0) % MCV 109.5 H (80.0-100.0) fL RDW 18.7 H (11.5-15.5) % Neutrophils # (Manual) 10.66 H (1.3-7.7) k/uL Lymphocytes # (Manual) 0.99 L (1.0-4.8) k/uL Myelocytes # (Manual) 0.12 H (0) k/uL Macrocytosis Marked A Chloride (98-107) mmol/L Carbon Dioxide (22-30) mmol/L BUN (9-20) mg/dL Creatinine (0.66-1.25) mg/dL POC Glucose (mg/dL) 180 H 121 H (70-110) mg/dL Calcium (8.4-10.2) mg/dL Assessment and Plan Assessment: Impression: Acute hypoxic respiratory failure secondary to cardiac arrest with recurrent ventricular fibrillation and tachycardia requiring CPR, down time was about 36 minutes. Possible anoxic brain injury , likely mild, considering the patient is recovering well however he remains a relatively slow. possible right lower lobe aspiration pneumonia Severe ischemic cardiomyopathy and LV dysfunction Underlying coronary artery disease and previous stenting of RCA in 1996 Pancreatic cancer Severe weight loss secondary to pancreatic malignancy Chronic anemia Chronic atrial fibrillation, previous unsuccessful cardioversions History of obstructive jaundice secondary to pancreatic cancer and requiring biliary stenting Benign essential hypertension Severe cachexia/protein calorie malnutrition secondary to pancreatic malignancy Failure to thrive secondary to pancreatic cancer Peripheral vessel occlusive disease Type 2 diabetes without complications Acute digoxin toxicity, resolved. Recommendation: Continue present supportive care measures. Patient was extubated 3 days ago. Tolerated the extubation well. Presently on room air. Incentive spirometry Physical therapy Ambulation. Advanced diet as tolerated. Agree with DO NOT RESUSCITATE CODE STATUS Considering his overall medical problems, prognosis remains extremely poor and guarded especially with his history of pancreatic carcinoma Will follow as needed. Time with Patient: Less than 30
--- NOTE | 2023-02-18 13:09 | P.PN ---
Subjective Progress Note Date: 02/18/23 She seen at bedside and he feels better. He denies off any further neurological issues. Objective - Vital Signs Vital signs: Vital Signs Temp 98.0 F 02/18/23 11:57 Pulse 80 02/18/23 12:27 Resp 16 02/18/23 11:57 BP 123/74 02/18/23 11:57 Pulse Ox 94 L 02/18/23 11:57 FiO2 40 02/15/23 12:00 Intake & Output 02/17/23 02/18/23 02/18/23 18:59 06:59 18:59 Intake Total 236 Output Total 650 850 Balance -414 -850 Intake: Oral 236 Output: Urine 650 850 Other: Voiding Method Indwelling Catheter Indwelling Catheter Indwelling Catheter ABP, PAP, CO, CI - Last Documented Arterial Blood Pressure 162/62 - Exam Patient is awake, alert, oriented to self, place and time. Is following simple commands. No aphasia or neglect. Pupils are round, equal and reactive to light. VFF to confrontation. EOM intact and no nystagmus. No facial weakness. No dysarthria. Motor: Strength is lifting all extremities above gravity and no focality. SOME OF THE WORK-UP DURING THIS HOSPITAL VISIT CONSISTED OF: Routine EEG is abnormal. The back is only suggestive of mild encephalopathy. Otherwise there is no focal slowing, epileptiform discharge or seizure on the EE G. CT of the head is reported as no acute intracranial process. - Labs CBC & Chem 7: 02/18/23 05:34 02/18/23 05:34 Labs: Abnormal Lab Results - Last 24 Hours (Table) 02/17/23 02/17/23 02/18/23 Range/Units 17:02 19:42 05:34 WBC (3.8-10.6) k/uL RBC (4.30-5.90) m/uL Hgb (13.0-17.5) gm/dL Hct (39.0-53.0) % MCV (80.0-100.0) fL RDW (11.5-15.5) % Neutrophils # (Manual) (1.3-7.7) k/uL Lymphocytes # (Manual) (1.0-4.8) k/uL Myelocytes # (Manual) (0) k/uL Macrocytosis Chloride 119 H (98-107) mmol/L Carbon Dioxide 16 L (22-30) mmol/L BUN 21 H (9-20) mg/dL Creatinine 2.01 H (0.66-1.25) mg/dL POC Glucose (mg/dL) 128 H 152 H (70-110) mg/dL Calcium 7.9 L (8.4-10.2) mg/dL 02/18/23 02/18/23 02/18/23 Range/Units 05:34 06:09 11:29 WBC 12.4 H (3.8-10.6) k/uL RBC 2.27 L (4.30-5.90) m/uL Hgb 7.9 L (13.0-17.5) gm/dL Hct 24.9 L (39.0-53.0) % MCV 109.5 H (80.0-100.0) fL RDW 18.7 H (11.5-15.5) % Neutrophils # (Manual) 10.66 H (1.3-7.7) k/uL Lymphocytes # (Manual) 0.99 L (1.0-4.8) k/uL Myelocytes # (Manual) 0.12 H (0) k/uL Macrocytosis Marked A Chloride (98-107) mmol/L Carbon Dioxide (22-30) mmol/L BUN (9-20) mg/dL Creatinine (0.66-1.25) mg/dL POC Glucose (mg/dL) 180 H 121 H (70-110) mg/dL Calcium (8.4-10.2) mg/dL Assessment and Plan Assessment: Cardaic arrest in our facility. Prolonged arrest of 36minutes. Had V-fib then subsequently sinus bradycrdia. Altered mental status due to Anoxic encephalopathy--improved Bradycardia (40-50's) Digoxin toxicity (3.1. Therapeutic is 0.8-2.0) Acute respiratory failure hypoxia due to cardiac arrest and the patient is intubated on mechanical ventilation B6 deficiency History of coronary artery disease status post stent History of chronic atrial fibrillation with previous unsuccessful cardioversion Ischemic cardiomyopathy with ejection fraction of 30-35% and is not a good candidate for AICD placement due to underlying malignancy History of pancreatic cancer that is recent History of obstructive jaundice due to pancreatic tumor with previous biliary sending Peripheral vascular disease [place] to thrive Type 2 diabetes Plan: Cardiology is on board. We'll defer the rest of the medical management to the primaryother specialists Condition is guarded The patient has made drastic improvement from neurological perspective. The plan is discussed with the patient. Neurology will sign off. Please reconsult if needed. Time with Patient: Less than 30
--- NOTE | 2023-02-18 14:42 | P.PN ---
Subjective Progress Note Date: 02/18/23 The patient is a 68-year-old male, who was admitted on January 31 with evidence of atrial fibrillation. He has a known history of CAD, post stenting of the RCA in 1996, severe ischemic cardiomyopathy, moderate mitral regurgitation, hypertension hyperlipidemia and peripheral vascular disease who was being e valuated to undergo an ICD implant that was canceled because of a diagnosis of pancreatic cancer. The patient has lost a lot of weight and has not been able to eat. According to the nursing staff he was relatively stable when he went into ventricular tachycardia and had a cardiac arrest requiring a prolonged CPR with subsequent tenriism of sinus mechanism after receiving multiple shocks, epinephrine and amiodarone. According to the note patient has been having severe abdominal pain and had been unable to eat or drink. He was seen in the ICU, intubated and sedated. Over the last few days the patient had episode of bradycardia and pauses. 02/13 Patient seen and examined. Patient remains intubated and sedated on ventilator. PEEP of 5 and FiO2 50%. Blood pressures 110s over 50s off of any vasopressors. Remains sedated. Intermittent bradycardia heart rates in the 40s and 50s and intermittent second-degree blocks. Amio drip was stopped secondary to bradycardia. 02/14 Patient seen and examined. Patient off of any vasopressors and remains sedated on propofol. Amiodarone drip was discontinued secondary to bradycardia. No significant ventricular ectopy. On ventilator with a FiO2 40% and PEEP of 5. Receiving IV fluids at 150 mL per hour. 02/15 Patient seen and examined. Patient is intubated and sedated. Attempts at weaning patient from sedation yesterday with some following commands however had problems weaning sedation. Remains on propofol. FiO2 40% with a PEEP of 5. Blood pressure is borderline elevated. Currently sinus rhythm with occasional pauses. 02/16 Patient seen and examined. Patient was extubated yesterday and currently maintaining nasal cannula. Denies any chest pain or pressure. Mainly admits to continued abdominal pain as well as bilateral arm pain. He is still having intermittent bradycardic episodes with occasional pauses up to 2.5 seconds. No lightheadedness or dizziness. 02/17 Patient seen and examined. Patient denies any chest pain or pressure. No other significant arrhythmias. Patient is having somewhat improvement in terms of his strength. He has some diet however has significant abdominal pain. He is back in [facility] with controlled ventricular rates 60 to 80s. 02/18 RN reports pt with chest pains overnight and this am. EKG remains unchanged. Pt reports chest feels sore, pain is worse with deep breathing. Troponin normal. PHYSICAL EXAMINATION: Vitals reviewed LUNGS: Clear to auscultation HEART: Rregular rate and rhythm, S1, S2. No S3. systolic ejection murmur ABDOMEN: Soft, positive bowel sounds, no organomegaly EXTREMETIES: No edema IMPRESSION: 1. Cardiac arrest with recurrent ventricular fibrillation and tachycardia requiring CPR 2. Known history of severe ischemic cardiomyopathy 3. Known history of CAD status post stenting of the RCA in 1996 4. Pancreatic cancer 5. Poor by mouth intake with severe weight loss 6. Anemia 7. Elevated digoxin level PLAN: AICD only indicated if life expectancy greater than 6 months and unclear status with his pancreatic cancer. Continue with current supportive care for now. Continue with metoprolol. Continue with anticoagulation monitor anemia. Contin ue to hold digoxin. Appears relatively stable from a cardiology standpoint for transfer to rehab. Follow up with Dr. Michael unpon discharge. Objective - Vital Signs Vital signs: Vital Signs Temp 98.0 F 02/18/23 11:57 Pulse 80 02/18/23 12:27 Resp 16 02/18/23 11:57 BP 123/74 02/18/23 11:57 Pulse Ox 94 L 02/18/23 11:57 FiO2 40 02/15/23 12:00 Intake & Output 02/17/23 02/18/23 02/18/23 18:59 06:59 18:59 Intake Total 236 Output Total 650 850 Balance -414 -850 Intake: Oral 236 Output: Urine 650 850 Other: Voiding Method Indwelling Catheter Indwelling Catheter Indwelling Catheter ABP, PAP, CO, CI - Last Documented Arterial Blood Pressure 162/62 - Labs CBC & Chem 7: 02/18/23 05:34 02/18/23 05:34 Labs: Abnormal Lab Results - Last 24 Hours (Table) 02/17/23 02/17/23 02/18/23 Range/Units 17:02 19:42 05:34 WBC (3.8-10.6) k/uL RBC (4.30-5.90) m/uL Hgb (13.0-17.5) gm/dL Hct (39.0-53.0) % MCV (80.0-100.0) fL RDW (11.5-15.5) % Neutrophils # (Manual) (1.3-7.7) k/uL Lymphocytes # (Manual) (1.0-4.8) k/uL Myelocytes # (Manual) (0) k/uL Macrocytosis Chloride 119 H (98-107) mmol/L Carbon Dioxide 16 L (22-30) mmol/L BUN 21 H (9-20) mg/dL Creatinine 2.01 H (0.66-1.25) mg/dL POC Glucose (mg/dL) 128 H 152 H (70-110) mg/dL Calcium 7.9 L (8.4-10.2) mg/dL 02/18/23 02/18/23 02/18/23 Range/Units 05:34 06:09 11:29 WBC 12.4 H (3.8-10.6) k/uL RBC 2.27 L (4.30-5.90) m/uL Hgb 7.9 L (13.0-17.5) gm/dL Hct 24.9 L (39.0-53.0) % MCV 109.5 H (80.0-100.0) fL RDW 18.7 H (11.5-15.5) % Neutrophils # (Manual) 10.66 H (1.3-7.7) k/uL Lymphocytes # (Manual) 0.99 L (1.0-4.8) k/uL Myelocytes # (Manual) 0.12 H (0) k/uL Macrocytosis Marked A Chloride (98-107) mmol/L Carbon Dioxide (22-30) mmol/L BUN (9-20) mg/dL Creatinine (0.66-1.25) mg/dL POC Glucose (mg/dL) 180 H 121 H (70-110) mg/dL Calcium (8.4-10.2) mg/dL
--- NOTE | 2023-02-18 15:13 | P.PN ---
Subjective Progress Note Date: 02/18/23 This is a pleasant 67 years old male with multiple medical problems who was admitted initially on 02/01 with shortness of breath and borderline blood pressure 105/78 thought secondary to A. fib and RVR as his heart rate was around 133. 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 Patient with recent history of pancreatic cancer diagnosed last September and his been having chronic abdominal pain in the epigastrium about 7/10 similar since then. He has some mouth sores and bicytopenia secondary to recent chemotherapy, oncology team on the case. He is kept nothing by mouth and TPN is running partially because of his mouth sores. He still have bouts of diarrhea but states that he started getting better today and more formed. C. diff is negative. Patient says that his weakness is better than last week, he fell 2 days ago, Cedergren was negative at that time. He is fully awake and oriented denies chest pain or dyspnea. He still feels generally weak and he still have abdominal pain as above. No urinary complaints. Vitas looks stable. Patient is afebrile. Hemoglobin 8.4 and platelet count improved to 83. CT of the abdomen and pelvis showing cholelithiasis with biliary stent in place and fluid distention of the colon was closed with diarrhea. Patient currently on D5 normal saline at 50 mL per hour and Eliquis 5 mg. We will check vitamin B12 and vitamin D. Also will check stool for elastase 02/09/2023 Patient pulled his PICC line accidentally today. Patient is not confused. Patient does swallow evaluation and I agree with starting him on liquid diet with advanced as tolerated. His mouth sores have resolved significantly and they are minimum in his examination today. His A. fib is in control on metoprolol higher dose 100 mg and Eliquis 5 mg BMP is a stable Check labs in the morning including platelet count and hemoglobin and BMP. Patient says that diarrhea has significantly improved. We still waiting for elastase to check for pancreatic function. 02/10/2023 Patient diarrhea has stopped, his heart rate and A. fib has been controlled which were the 2 main acute reasons he came into the hospital with. Patient still with chronic problems since last September including loss of energy, epigastric and upper abdominal pain and severe anorexia related to his cancer. Patient is open to go to rehab however his main problem is inability to eat very at Oncology team on the case. We checked vitamin B12 more than 3600 which is very high level above the limits therefore we discontinued his vitamin B12 pills Vitamin B6 is low last than 5 at 4. Therefore was set replacement therapy. 02/11/2023 Patient clinically is the same, no significant diarrhea, abdominal pain is chronic. Still has low appetite Today I have a discussion with the patient about his eating and anorexia and he is willing to try soft diet today. Therefore we don't advance his liquid diet until soft diet and keep monitoring The meantime we will hold Imodium so we can monitor his diarrhea. Discussed with staff to check for still elastase. Oncology team on the case 02/12/2023 Today patient developed cardiac arrest and CODE BLUE was called. He underwent CPR several rounds and had cardiac rhythm of V. fib and V. tach. Patient regained blood pressure and pulse rate, He is intubated and sedated and transferred to the ICU. Patient was examined at bedside during the code, EKG showing ischemic changes, rhythm is bradycardic and patient was hypotensive. Pulmonary/critical care team and cardiology team evaluated the patient Continue with amiodarone, normal saline, antibiotic with Zosyn. I discussed the case with cardiology team, patient is a known severe ischemic cardiomyopathy, he is not a candidate for cardiac cath, discussed the prognosis with oncology team is recommended. I discussed the case with the sister Halle over the phone who told me she is the next of kin, and there are no other family members to discuss the case with, the case was discussed with her in detail, hospital course as well as today's event are explained to her. She referred to his advance directive stating no extraheroic measures, she confirms to me he is DO NOT RESUSCITATE, also she wo uld like to talk to hospice team. consult for hospice for information is placed Patient is a known pancreatic cancer case, with severe anorexia since September 2022 as he stated, with significant weight loss, patient did not eat this morning, confirmed with the bedside nurse. Status post 3 cycles of chemotherapy. Prognosis remains guarded, Also we will consult oncology team for prognosis. I discussed the case with the ICU bed side nurse, he has advanced directive and Halle is name as his medical advocate. 02/13/2023 Patient is seen in follow-up today currently intubated in the ICU on mechanical ventilation and FiO2 is 40% with a PEEP of 5. Multiple medical consultations including cardiology, pulmonary, oncology following. Patient was status post cardiac arrest in a hospice consult was placed although family does not want to pursue this at this time and are agreeable to no code. Follow-up labs pending and overall prognosis remains extremely guarded. Patient is undergoing sedation holidays to assess mentation and neurology was consulted with a brain CT and EEG ordered and pending. Patient is currently afebrile with no reported chest pain or shortness of breath. No plans for weaning today. 02/14/2023 Patient seen and evaluated in follow-up today continues to be on mechanical ventilation with multiple medical consultations following including neurology. CT brain showing no acute process an EEG continues to be abnormal although no epileptiform discharges noted. Patient undergoing sedation holidays and will follow commands. Pulmonary following and will continue monitor closely for weaning parameters. A.m. labs currently pending and will follow-up and recommen ded replace electrolytes per protocol. Overall prognosis remains guarded at this time. 02/15/2023 Patient is seen this morning in the ICU continues on mechanical ventilation with consideration of weaning and tolerating sedation holidays. Patient currently on vent with an FiO2 of 40% and PEEP is 5. Chest x-rays this morning shows no evidence of pleural effusion or pneumothorax and support lines in appropriate position. Patient also continues on IV Zosyn empirically with concerns of aspiration pneumonia. White count is normal at 10 him a hemoglobin is 7.5, platelets are 134, sodium 145 with a potassium of 3.6 and creatinine is currently 1.76, magnesium is 1.8 and being replaced currently. 02/16/2023 Patient continues to be in the ICU with multiple medical consultations following. Patient is a downgrade and awaiting a bed availability on 3 S. Patient was extubated successfully currently maintained on as needed nasal cannula with good oxygen saturation. Patient be started on full liquid diet and would recommend aspiration precautions. Patient is continued on Zosyn and will continue for now. Recommend follow-up labs in the a.m. and patient will need physical therapy evaluation. Patient with significant weakness and prolonged hospitalization. Patient is afebrile denies chest pain or shortness of breath. 02/17/2023 Patient is seen and evaluated in follow-up this morning with multiple medical consultations following. Patient has been transferred out of the ICU maintained on 3 S. cardiac stepdown and continues with significant weakness. Patient was recently extubated a few days ago and denies shortness of breath. Patient is being evaluated with social work following and planning for going to [facility] once cleared by consultations. Patient currently tolerating diet and would recommend aspiration precautions. Patient is maintained on IV Zosyn and will continue. Kidney functions elevated and will monitor closely. Magnesium was 1.8 today and will replace per protocol and follow-up with labs in the a.m. 02/18. Patient seen and examined. Complaining of chest pain at the site of CPR. Complaining of constipation REVIEW OF SYSTEMS: CONSTITUTIONAL: No fever, no malaise,. CARDIOVASCULAR: no palpitations, no syncope. PULMONARY: No shortness of breath, no cough, GASTROINTESTINAL: No diarrhea, no nausea, no vomiting, no abdominal pain. NEUROLOGICAL: No headaches, no weakness, PHYSICAL EXAMINATION: GENERAL: The patient is alert and oriented x3, not in any acute distress. Well developed, well nourished. HEENT: Pupils are round and equally reacting to light. EOMI. No scleral icterus. No conjunctival pallor. Normocephalic, atraumatic. No pharyngeal erythema. No thyromegaly. CARDIOVASCULAR: S1 and S2 present. No murmurs, rubs, or gallops. PULMONARY: Chest is clear to auscultation, no wheezing or crackles. ABDOMEN: Soft, nontender, nondistended, normoactive bowel sounds. No palpable organomegaly. MUSCULOSKELETAL: No joint swelling or deformity. EXTREMITIES: No cyanosis, clubbing, or pedal edema. NEUROLOGICAL: Gross neurological examination did not reveal any focal deficits. SKIN: No rashes. Assessment and plan Status post cardiac arrest and CPR with return of spontaneous circulation, cardiac arrest while hospitalized and down time was approximately 36 minutes Hypotension and bradycardia secondary to above, improving Acute hypoxemic respiratory failure requiring intubation and mechanical ventilation, extubated successfully on 02/15/2023 2 L via nasal cannula Possible right lower lobe aspiration pneumonia A. fib and RVR, present on admission, currently rate is better controlled Pancreatic cancer status post chemotherapy Severe anorexia, since last September, most likely related to his cancer Chronic abdominal pain secondary to above. 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 Patient has been transferred out of the ICU currently on room air with occasional 2 L via nasal cannula maintaining oxygen saturations. Cardiology as well as pulmonary following the medications have been resumed and able to tolerate oral intake Advancing diet as tolerated AICD only indicated if life expectancy greater than 6 months and unclear status with his pancreatic cancer. Cardiology recommended to continue metoprolol Patient is continued on IV antibiotics in the form of Zosyn with concerns of aspiration pneumonia and will continue Follow-up on PT and OT recommendations Recommend follow-up labs in the a.m. Objective - Vital Signs Vital signs: Vital Signs Temp 98.0 F 02/18/23 09:14 Pulse 73 02/18/23 09:14 Resp 16 02/18/23 09:14 BP 143/77 02/18/23 09:14 Pulse Ox 100 02/18/23 09:14 FiO2 40 02/15/23 12:00 Intake & Output 02/17/23 02/18/23 02/18/23 18:59 06:59 18:59 Intake Total 236 Output Total 650 850 Balance -414 -850 Intake: Oral 236 Output: Urine 650 850 Other: Voiding Method Indwelling Catheter Indwelling Catheter Indwelling Catheter ABP, PAP, CO, CI - Last Documented Arterial Blood Pressure 162/62 - Labs CBC & Chem 7: 02/18/23 05:34 02/18/23 05:34 Labs: Abnormal Lab Results - Last 24 Hours (Table) 02/17/23 02/17/23 02/17/23 Range/Units 11:45 17:02 19:42 WBC (3.8-10.6) k/uL RBC (4.30-5.90) m/uL Hgb (13.0-17.5) gm/dL Hct (39.0-53.0) % MCV (80.0-100.0) fL RDW (11.5-15.5) % Neutrophils # (Manual) (1.3-7.7) k/uL Lymphocytes # (Manual) (1.0-4.8) k/uL Myelocytes # (Manual) (0) k/uL Macrocytosis Chloride (98-107) mmol/L Carbon Dioxide (22-30) mmol/L BUN (9-20) mg/dL Creatinine (0.66-1.25) mg/dL POC Glucose (mg/dL) 126 H 128 H 152 H (70-110) mg/dL Calcium (8.4-10.2) mg/dL 02/18/23 02/18/23 02/18/23 Range/Units 05:34 05:34 06:09 WBC 12.4 H (3.8-10.6) k/uL RBC 2.27 L (4.30-5.90) m/uL Hgb 7.9 L (13.0-17.5) gm/dL Hct 24.9 L (39.0-53.0) % MCV 109.5 H (80.0-100.0) fL RDW 18.7 H (11.5-15.5) % Neutrophils # (Manual) 10.66 H (1.3-7.7) k/uL Lymphocytes # (Manual) 0.99 L (1.0-4.8) k/uL Myelocytes # (Manual) 0.12 H (0) k/uL Macrocytosis Marked A Chloride 119 H (98-107) mmol/L Carbon Dioxide 16 L (22-30) mmol/L BUN 21 H (9-20) mg/dL Creatinine 2.01 H (0.66-1.25) mg/dL POC Glucose (mg/dL) 180 H (70-110) mg/dL Calcium 7.9 L (8.4-10.2) mg/dL 02/18/23 Range/Units 11:29 WBC (3.8-10.6) k/uL RBC (4.30-5.90) m/uL Hgb (13.0-17.5) gm/dL Hct (39.0-53.0) % MCV (80.0-100.0) fL RDW (11.5-15.5) % Neutrophils # (Manual) (1.3-7.7) k/uL Lymphocytes # (Manual) (1.0-4.8) k/uL Myelocytes # (Manual) (0) k/uL Macrocytosis Chloride (98-107) mmol/L Carbon Dioxide (22-30) mmol/L BUN (9-20) mg/dL Creatinine (0.66-1.25) mg/dL POC Glucose (mg/dL) 121 H (70-110) mg/dL Calcium (8.4-10.2) mg/dL
[2023-02-18] MEDS: NOREPINEPHRINE 8 MG in SODIUM CHLORIDE 0.9% 250 ML IV SCH (15:15)
[2023-02-18 16:34] LABS: Glucose,Whole Blood 96 mg/dL (70-110)
[2023-02-18 20:05] LABS: Glucose,Whole Blood 118 mg/dL (70-110)
[2023-02-18] MEDS: PRAVASTATIN SODIUM 20 MG TAB PO SCH (20:14)
[2023-02-19] MEDS: HYDROcodone/APAP 10-325MG 1 EACH TAB PO PRN ×5 (02:18→21:25)
[2023-02-19 05:54] LABS: Glucose,Whole Blood 91 mg/dL (70-110)
[2023-02-19] MEDS: INSULIN ASPART (NovoLOG) 100 UNIT/ML VIAL SQ SCH ×4 (06:00→21:22)
[2023-02-19] MEDS: PIPERACILLIN-TAZOBACTAM 3.375 GM in SODIUM CHLORIDE 0.9% 100 ML IVPB SCH (08:38)
[2023-02-19] MEDS: APIXABAN 5 MG TAB PO SCH ×2 (08:39→21:24)
[2023-02-19] MEDS: CHOLECALCIFEROL 25 MCG (1000 IU) TABLET PO SCH (08:39)
[2023-02-19] MEDS: PYRIDOXINE 50 MG TAB PO SCH ×2 (08:40→21:24)
[2023-02-19] MEDS: METOPROLOL TARTRATE 50 MG TAB PO SCH ×2 (08:40→21:25)
[2023-02-19] MEDS: ISOSORBIDE MONONITRATE ER 30 MG TAB.ER.24H PO SCH (08:40)
[2023-02-19] MEDS: PANTOPRAZOLE 40 MG/10 ML VIAL IV SCH (08:41)
[2023-02-19] MEDS: IPRATROPIUM-ALBUTEROL 3 ML NEB INHALATION SCH ×4 (08:57→20:34)
[2023-02-19] MEDS ORDERED: DOCUSATE 100 MG CAP PO SCH (09:00)
[2023-02-19 11:48] LABS: Glucose,Whole Blood 80 mg/dL (70-110)
--- NOTE | 2023-02-19 14:42 | P.PN ---
Subjective Progress Note Date: 02/19/23 This is a pleasant 67 years old male with multiple medical problems who was admitted initially on 02/01 with shortness of breath and borderline blood pressure 105/78 thought secondary to A. fib and RVR as his heart rate was around 133. Patient has been able to by network manager and his dose of metoprolol inc reased from 50 mg up to 100 mg and continued on digoxin 250 mg as well as he is on liquids 5 mg. Patient with recent history of pancreatic cancer diagnosed last September and his been having chronic abdominal pain in the epigastrium about 7/10 similar since then. He has some mouth sores and bicytopenia secondary to recent chemotherapy, oncology team on the case. He is kept nothing by mouth and TPN is running partially because of his mouth sores. He still have bouts of diarrhea but states that he started getting better today and more formed. C. diff is negative. Patient says that his weakness is better than last week, he fell 2 days ago, Cedergren was negative at that time. He is fully awake and oriented denies chest pain or dyspnea. He still feels generally weak and he still have abdominal pain as above. No urinary complaints. Vitas looks stable. Patient is afebrile. Hemoglobin 8.4 and platelet count improved to 83. CT of the abdomen and pelvis showing cholelithiasis with biliary stent in place and fluid distention of the colon was closed with diarrhea. Patient currently on D5 normal saline at 50 mL per hour and Eliquis 5 mg. We will check vitamin B12 and vitamin D. Also will check stool for elastase 02/09/2023 Patient pulled his PICC line accidentally today. Patient is not confused. Patient does swallow evaluation and I agree with starting him on liquid diet with advanced as tolerated. His mouth sores have resolved significantly and they are minimum in his examination today. His A. fib is in control on metoprolol higher dose 100 mg and Eliquis 5 mg BMP is a stable Check labs in the morning including platelet count and hemoglobin and BMP. Patient says that diarrhea has significantly improved. We still waiting for elastase to check for pancreatic function. 02/10/2023 Patient diarrhea has stopped, his heart rate and A. fib has been controlled which were the 2 main acute reasons he came into the hospital with. Patient still with chronic problems since last September including loss of energy, epigastric and upper abdominal pain and severe anorexia related to his cancer. Patient is open to go to rehab however his main problem is inability to eat very at Oncology team on the case. We checked vitamin B12 more than 3600 which is very high level above the limits therefore we discontinued his vitamin B12 pills Vitamin B6 is low last than 5 at 4. Therefore was set replacement therapy. 02/11/2023 Patient clinically is the same, no significant diarrhea, abdominal pain is chronic. Still has low appetite Today I have a discussion with the patient about his eating and anorexia and he is willing to try soft diet today. Therefore we don't advance his liquid diet until soft diet and keep monitoring The meantime we will hold Imodium so we can monitor his diarrhea. Discussed with staff to check for still elastase. Oncology team on the case 02/12/2023 Today patient developed cardiac arrest and CODE BLUE was called. He underwent CPR several rounds and had cardiac rhythm of V. fib and V. tach. Patient regained blood pressure and pulse rate, He is intubated and sedated and transferred to the ICU. Patient was examined at bedside during the code, EKG showing ischemic changes, rhythm is bradycardic and patient was hypotensive. Pulmonary/critical care team and cardiology team evaluated the patient Continue with amiodarone, normal saline, antibiotic with Zosyn. I discussed the case with cardiology team, patient is a known severe ischemic cardiomyopathy, he is not a candidate for cardiac cath, discussed the prognosis with oncology team is recommended. I discussed the case with the sister Halle over the phone who told me she is the next of kin, and there are no other family members to discuss the case with, the case was discussed with her in detail, hospital course as well as today's event are explained to her. She referred to his advance directive stating no extraheroic measures, she confirms to me he is DO NOT RESUSCITATE, also she wo uld like to talk to hospice team. consult for hospice for information is placed Patient is a known pancreatic cancer case, with severe anorexia since September 2022 as he stated, with significant weight loss, patient did not eat this morning, confirmed with the bedside nurse. Status post 3 cycles of chemotherapy. Prognosis remains guarded, Also we will consult oncology team for prognosis. I discussed the case with the ICU bed side nurse, he has advanced directive and Halle is name as his medical advocate. 02/13/2023 Patient is seen in follow-up today currently intubated in the ICU on mechanical ventilation and FiO2 is 40% with a PEEP of 5. Multiple medical consultations including cardiology, pulmonary, oncology following. Patient was status post cardiac arrest in a hospice consult was placed although family does not want to pursue this at this time and are agreeable to no code. Follow-up labs pending and overall prognosis remains extremely guarded. Patient is undergoing sedation holidays to assess mentation and neurology was consulted with a brain CT and EEG ordered and pending. Patient is currently afebrile with no reported chest pain or shortness of breath. No plans for weaning today. 02/14/2023 Patient seen and evaluated in follow-up today continues to be on mechanical ventilation with multiple medical consultations following including neurology. CT brain showing no acute process an EEG continues to be abnormal although no epileptiform discharges noted. Patient undergoing sedation holidays and will follow commands. Pulmonary following and will continue monitor closely for weaning parameters. A.m. labs currently pending and will follow-up and recommen ded replace electrolytes per protocol. Overall prognosis remains guarded at this time. 02/15/2023 Patient is seen this morning in the ICU continues on mechanical ventilation with consideration of weaning and tolerating sedation holidays. Patient currently on vent with an FiO2 of 40% and PEEP is 5. Chest x-rays this morning shows no evidence of pleural effusion or pneumothorax and support lines in appropriate position. Patient also continues on IV Zosyn empirically with concerns of aspiration pneumonia. White count is normal at 10 him a hemoglobin is 7.5, platelets are 134, sodium 145 with a potassium of 3.6 and creatinine is currently 1.76, magnesium is 1.8 and being replaced currently. 02/16/2023 Patient continues to be in the ICU with multiple medical consultations following. Patient is a downgrade and awaiting a bed availability on 3 S. Patient was extubated successfully currently maintained on as needed nasal cannula with good oxygen saturation. Patient be started on full liquid diet and would recommend aspiration precautions. Patient is continued on Zosyn and will continue for now. Recommend follow-up labs in the a.m. and patient will need physical therapy evaluation. Patient with significant weakness and prolonged hospitalization. Patient is afebrile denies chest pain or shortness of breath. 02/17/2023 Patient is seen and evaluated in follow-up this morning with multiple medical consultations following. Patient has been transferred out of the ICU maintained on 3 S. cardiac stepdown and continues with significant weakness. Patient was recently extubated a few days ago and denies shortness of breath. Patient is being evaluated with social work following and planning for going to [facility] once cleared by consultations. Patient currently tolerating diet and would recommend aspiration precautions. Patient is maintained on IV Zosyn and will continue. Kidney functions elevated and will monitor closely. Magnesium was 1.8 today and will replace per protocol and follow-up with labs in the a.m. 02/18. Patient seen and examined. Complaining of chest pain at the site of CPR. Complaining of constipation 02/19. Patient seen and examined. Vital signs this morning temperature 97.7, heart rate 76, respirations 16, blood pressure 134/78. Patient constipation improved. No episode of blood in the stools REVIEW OF SYSTEMS: CONSTITUTIONAL: No fever, no malaise,. CARDIOVASCULAR: no palpitations, no syncope. PULMONARY: No shortness of breath, no cough, GASTROINTESTINAL: No diarrhea, no abdominal pain. NEUROLOGICAL: No headaches, no weakness, PHYSICAL EXAMINATION: GENERAL: The patient is alert and oriented x3, not in any acute distress. Well developed, well nourished. HEENT: Pupils are round and equally reacting to light. EOMI. No scleral icterus. No conjunctival pallor. Normocephalic, atraumatic. No pharyngeal erythema. No thyromegaly. CARDIOVASCULAR: S1 and S2 present. No murmurs, rubs, or gallops. PULMONARY: Chest is clear to auscultation, no wheezing or crackles. ABDOMEN: Soft, nontender, nondistended, normoactive bowel sounds. No palpable organomegaly. MUSCULOSKELETAL: No joint swelling or deformity. EXTREMITIES: No cyanosis, clubbing, or pedal edema. NEUROLOGICAL: Gross neurological examination did not reveal any focal deficits. SKIN: No rashes. Assessment and plan Status post cardiac arrest and CPR with return of spontaneous circulation, cardiac arrest while hospitalized and down time was approximately 36 minutes Hypotension and bradycardia secondary to above, improving Acute hypoxemic respiratory failure requiring intubation and mechanical ventilation, extubated successfully on 02/15/2023 2 L via nasal cannula Possible right lower lobe aspiration pneumonia A. fib and RVR, present on admission, currently rate is better controlled Pancreatic cancer status post chemotherapy Severe anorexia, since last Felipe, most likely related to his cancer Chronic abdominal pain secondary to above. 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 Cardiology recommended to continue metoprolol Patient is continued on IV antibiotics in the form of Zosyn with concerns of aspiration pneumonia and will continue Follow-up on PT and OT recommendations Recommend to continue with current medications with multiple medical consultations following. Cardiology as well as pulmonary following the medications have been resumed and able to tolerate oral intake Objective - Vital Signs Vital signs: Vital Signs Temp 97.7 F 02/19/23 08:25 Pulse 92 02/19/23 09:10 Resp 16 02/19/23 08:25 BP 134/78 02/19/23 08:25 Pulse Ox 95 02/19/23 08:25 FiO2 40 02/15/23 12:00 Intake & Output 02/18/23 02/19/23 02/19/23 18:59 06:59 18:59 Output Total 1000 1625 Balance -1000 -1625 Output: Urine 1000 1625 Other: Voiding Method Indwelling Catheter Indwelling Catheter Indwelling Catheter # Voids 1 # Bowel Movements 1 ABP, PAP, CO, CI - Last Documented Arterial Blood Pressure 162/62 - Labs CBC & Chem 7: 02/18/23 05:34 02/18/23 05:34 Labs: Abnormal Lab Results - Last 24 Hours (Table) 02/18/23 Range/Units 20:04 POC Glucose (mg/dL) 118 H (70-110) mg/dL
[2023-02-19 15:00] LABS: Anisocytosis Slight; Basophils % (A) 0 %; Eosinophils # (A) 0.1 k/uL (0-0.7); Eosinophils % (A) 1 %; HCT 29.7 % (39.0-53.0); Hypochromasia Moderate; Lymphocytes # (A) 1.6 k/uL (1.0-4.8); Lymphocytes % (A) 10 %; MCH 34.7 pg (25.0-35.0); MCHC 31.9 g/dL (31.0-37.0); MCV 108.6 fL (80.0-100.0); Macrocytosis Marked; Mean Platelet Volume 8.6; Monocytes # (A) 0.6 k/uL (0-1.0); Monocytes % (A) 4 %; Neutrophils # (A) 13.6 k/uL (1.3-7.7); Neutrophils % (A) 84 %; Platelet Count 229 k/uL (150-450); Poikilocytosis Moderate; RBC 2.74 m/uL (4.30-5.90); RDW 19.4 % (11.5-15.5); WBC 16.1 k/uL (3.8-10.6)
[2023-02-19 15:02] LABS: HGB 9.5 gm/dL (13.0-17.5)
[2023-02-19 16:28] LABS: Glucose,Whole Blood 115 mg/dL (70-110)
[2023-02-19 20:07] LABS: Glucose,Whole Blood 103 mg/dL (70-110)
[2023-02-19] MEDS: PRAVASTATIN SODIUM 20 MG TAB PO SCH (21:25)
[2023-02-20] MEDS: HYDROcodone/APAP 10-325MG 1 EACH TAB PO PRN ×3 (01:29→11:37)
[2023-02-20 06:00] LABS: Glucose,Whole Blood 87 mg/dL (70-110)
[2023-02-20] MEDS: INSULIN ASPART (NovoLOG) 100 UNIT/ML VIAL SQ SCH ×2 (06:28→11:37)
[2023-02-20] MEDS: IPRATROPIUM-ALBUTEROL 3 ML NEB INHALATION SCH ×2 (09:22→12:51)
[2023-02-20] MEDS: METOPROLOL TARTRATE 50 MG TAB PO SCH (09:33)
[2023-02-20] MEDS: ISOSORBIDE MONONITRATE ER 30 MG TAB.ER.24H PO SCH (09:33)
[2023-02-20] MEDS: PANTOPRAZOLE 40 MG/10 ML VIAL IV SCH (09:34)
[2023-02-20] MEDS: APIXABAN 5 MG TAB PO SCH (09:34)
[2023-02-20] MEDS: CHOLECALCIFEROL 25 MCG (1000 IU) TABLET PO SCH (09:34)
[2023-02-20] MEDS: PYRIDOXINE 50 MG TAB PO SCH (09:34)
[2023-02-20 10:29] VITALS: RESP 16
[2023-02-20 11:37] LABS: Glucose,Whole Blood 117 mg/dL (70-110)
[2023-02-20 11:47] VITALS: BP 150/70; TEMP 97.5
[2023-02-20 12:06] LABS: Anisocytosis Slight; Basophils # (A) 0.1 k/uL (0-0.2); Basophils % (A) 0 %; Eosinophils # (A) 0.1 k/uL (0-0.7); Eosinophils % (A) 1 %; HCT 27.2 % (39.0-53.0); HGB 8.7 gm/dL (13.0-17.5); Hypochromasia Moderate; Lymphocytes # (A) 1.3 k/uL (1.0-4.8); Lymphocytes % (A) 10 %; MCH 34.9 pg (25.0-35.0); MCHC 31.9 g/dL (31.0-37.0); MCV 109.3 fL (80.0-100.0); Macrocytosis Marked; Mean Platelet Volume 8.3; Monocytes # (A) 0.6 k/uL (0-1.0); Monocytes % (A) 5 %; Neutrophils # (A) 11.3 k/uL (1.3-7.7); Neutrophils % (A) 83 %; Platelet Count 246 k/uL (150-450); Poikilocytosis Slight; RBC 2.48 m/uL (4.30-5.90); RDW 18.9 % (11.5-15.5); WBC 13.6 k/uL (3.8-10.6)
[2023-02-20 12:30] LABS: Calcium 7.8 mg/dL (8.4-10.2); Potassium 4.5 mmol/L (3.5-5.1); Total Bilirubin 0.4 mg/dL (0.2-1.3); Total Protein 4.8 g/dL (6.3-8.2)
[2023-02-20 13:00] VITALS: PULSE 65
[2023-02-20] MEDS ORDERED: FUROSEMIDE 10 MG/ML 4 ML VIAL IV STA (13:17)
--- NOTE | 2023-02-20 13:19 | P.PN ---
Subjective Progress Note Date: 02/20/23 HISTORY OF PRESENT ILLNESS: The patient is a 68-year-old male, who was admitted on January 31 with evidence of atrial fibrillation. He has a known history of CAD, post stenting of the RCA in 1996, severe ischemic cardiomyopathy, moderate mitral regurgitation, hypertension hyperlipidemia and peripheral vascular disease who was being evaluated to undergo an ICD implant that was canceled because of a diagnosis of pancreatic cancer. The patient has lost a lot of weight and has not been able to eat. According to the nursing staff he was relatively stable when he went into ventricular tachycardia and had a cardiac arrest requiring a prolonged CPR with subsequent hoahaoism of sinus mechanism after receiving multiple shocks, epinephrine and amiodarone. According to the note patient has been having severe abdominal pain and had been unable to eat or drink. He was seen in the ICU, intubated and sedated. Over the last few days the patient had episode of bradycardia and pauses. 02/13 Patient seen and examined. Patient remains intubated and sedated on ventilator. PEEP of 5 and FiO2 50%. Blood pressures 110s over 50s off of any vasopressors. Remains sedated. Intermittent bradycardia heart rates in the 40s and 50s and intermittent second-degree blocks. Amio drip was stopped secondary to bradycardia. 02/14 Patient seen and examined. Patient off of any vasopressors and remains sedated on propofol. Amiodarone drip was discontinued secondary to bradycardia. No significant ventricular ectopy. On ventilator with a FiO2 40% and PEEP of 5. Receiving IV fluids at 150 mL per hour. 02/15 Patient seen and examined. Patient is intubated and sedated. Attempts at weaning patient from sedation yesterday with some following commands however had problems weaning sedation. Remains on propofol. FiO2 40% with a PEEP of 5. Blood pressure is borderline elevated. Currently sinus rhythm with occasional pauses. 02/16 Patient seen and examined. Patient was extubated yesterday and currently maintaining nasal cannula. Denies any chest pain or pressure. Mainly admits to continued abdominal pain as well as bilateral arm pain. He is still having intermittent bradycardic episodes with occasional pauses up to 2.5 seconds. No lightheadedness or dizziness. 02/17 Patient seen and examined. Patient denies any chest pain or pressure. No other significant arrhythmias. Patient is having somewhat improvement in terms of his strength. He has some diet however has significant abdominal pain. He is back in A. fib with controlled ventricular rates 60 to 80s. 02/18 RN reports pt with chest pains overnight and this am. EKG remains unchanged. Pt reports chest feels sore, pain is worse with deep breathing. Troponin normal. 02/20/2023 Patient examined this morning at the bedside. Patient denies SOB. He denies chest pain or pressure. Telemetry reveals atrial fibrillation with a heart rate in the 80s. Vital signs are stable. PHYSICAL EXAM: VITAL SIGNS: Reviewed. GENERAL: Well-developed in no acute distress. NECK: Supple. No JVD or thyromegaly LUNGS: Respirations even and unlabored. Lungs essentially clear to auscultation bilaterally. HEART: Irregular rate and rhythm. S1 and S2 heard. EXTREMITIES: Normal range of motion. No clubbing or cyanosis. Peripheral pulses intact. No lower extremity edema ASSESSMENT: Persistent atrial fibrillation with 2 previous cardioversions Cardiac arrest with recurrent ventricular fibrillation and tachycardia requiring CPR Known history of severe ischemic cardiomyopathy, ejection fraction 30% Known history of CAD status post stenting of the RCA in 1996 Pancreatic cancer Poor by mouth intake with severe weight loss Chronic kidney disease Hypertension Hyperlipidemia Diabetes Anemia Elevated digoxin level PLAN: Continue current cardiac medications Continue to hold Digoxin Stable for discharge to ECF from a cardiac standpoint Further recommendations pending patient course Nurse practitioner note has been reviewed by physician. Signing provider agrees with the documented findings, assessment, and plan of care. Objective - Vital Signs Vital signs: Vital Signs Temp 97.5 F L 02/20/23 11:40 Pulse 65 02/20/23 12:59 Resp 16 02/20/23 11:40 BP 150/70 02/20/23 11:40 Pulse Ox 99 02/20/23 11:40 FiO2 40 02/15/23 12:00 Intake & Output 02/19/23 02/20/23 02/20/23 18:59 06:59 18:59 Intake Total 440 540 240 Output Total 600 650 Balance -160 540 -410 Intake: Oral 440 540 240 Output: Urine 600 650 Other: Voiding Method Indwelling Catheter Indwelling Catheter Indwelling Catheter # Voids 0 # Bowel Movements 0 ABP, PAP, CO, CI - Last Documented Arterial Blood Pressure 162/62 - Labs CBC & Chem 7: 02/20/23 11:16 02/20/23 11:16 Labs: Abnormal Lab Results - Last 24 Hours (Table) 02/19/23 02/19/23 02/20/23 Range/Units 14:37 16:26 11:16 WBC 16.1 H 13.6 H (3.8-10.6) k/uL RBC 2.74 L 2.48 L (4.30-5.90) m/uL Hgb 9.5 L D 8.7 L (13.0-17.5) gm/dL Hct 29.7 L 27.2 L (39.0-53.0) % MCV 108.6 H 109.3 H (80.0-100.0) fL RDW 19.4 H 18.9 H (11.5-15.5) % Neutrophils # 13.6 H 11.3 H (1.3-7.7) k/uL Macrocytosis Marked A Marked A Chloride (98-107) mmol/L Carbon Dioxide (22-30) mmol/L BUN (9-20) mg/dL Creatinine (0.66-1.25) mg/dL Glucose (74-99) mg/dL POC Glucose (mg/dL) 115 H (70-110) mg/dL Calcium (8.4-10.2) mg/dL Total Protein (6.3-8.2) g/dL Albumin (3.5-5.0) g/dL 02/20/23 02/20/23 Range/Units 11:16 11:36 WBC (3.8-10.6) k/uL RBC (4.30-5.90) m/uL Hgb (13.0-17.5) gm/dL Hct (39.0-53.0) % MCV (80.0-100.0) fL RDW (11.5-15.5) % Neutrophils # (1.3-7.7) k/uL Macrocytosis Chloride 115 H (98-107) mmol/L Carbon Dioxide 18 L (22-30) mmol/L BUN 23 H (9-20) mg/dL Creatinine 2.04 H (0.66-1.25) mg/dL Glucose 110 H (74-99) mg/dL POC Glucose (mg/dL) 117 H (70-110) mg/dL Calcium 7.8 L (8.4-10.2) mg/dL Total Protein 4.8 L (6.3-8.2) g/dL Albumin 2.0 L (3.5-5.0) g/dL
--- NOTE | 2023-02-20 13:27 | P.DS ---
Providers Date of admission: 01/31/23 16:56 Expected date of discharge: 02/20/23 Attending physician: Armida Lamar Consults: 01/31/23 16:56 Consult Physician Routine Consulting Provider: Matthew Rosa Consult Reason/Comments: Thrombocytopenia Do you want consulting provider notified?: Yes Consult Physician Urgent Consulting Provider: Jalen Wilhelm Consult Reason/Comments: a fib Do you want consulting provider notified?: Yes 02/12/23 12:08 Consult Physician Stat Consulting Provider: Nicol Bernal Consult Reason/Comments: s/p cardiac arrest, abnormal ekg Do you want consulting provider notified?: Already Contacted 02/12/23 12:37 Consult Physician Stat Consulting Provider: Latisha Nolan Consult Reason/Comments: icu/ventilator management Do you want consulting provider notified?: Yes 02/12/23 18:45 Consult Physician Urgent Consulting Provider: Matthew Rosa Consult Reason/Comments: prognosis Do you want consulting provider notified?: Yes, Notify in am 02/13/23 08:59 Consult Physician Urgent Consulting Provider: Trav Guardado Consult Reason/Comments: Cardiac arrest Do you want consulting provider notified?: Yes Primary care physician: Marco Haque [facility] Course: Final diagnosis Status post cardiac arrest and CPR with return of spontaneous circulation, cardiac arrest while hospitalized and down time was approximately 36 minutes Hypotension and bradycardia secondary to above, improving Acute hypoxemic respiratory failure requiring intubation and mechanical ventilation, extubated successfully on 02/15/2023 now on room air with occasional 2 L via nasal cannula Possible right lower lobe aspiration pneumonia A. fib and RVR, present on admission, currently rate is better controlled Pancreatic cancer status post chemotherapy Severe anorexia, since last September, most likely related to his cancer Chronic abdominal pain secondary to above. 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 Severe Ischemic cardiomyopathy, with ejection fraction 30-35% Coronary artery disease status post RCA stent Chronic kidney disease stage III Biliary obstruction secondary to pancreatic cancer status post stent No code Discharge disposition Patient is being discharged in a stable condition with guarded prognosis to [facility]. Patient will follow-up with Dr. Marco Haque in the outpatient setting upon discharge. Patient is to follow-up with cardiology outpatient as well as oncology outpatient once discharged from [facility]. Patient is agreeable he will not be having further treatment for any oncological services until discharge from rehab. Total time taken is greater than 35 minutes. Hospital course This is a 68-year-old male who was recently admitted with shortness of breath and A. fib RVR with some adjustments to medications being maintained at the outpatient setting with cardiology following. Patient having some weakness and weight loss and does have history of pancreatic cancer diagnosed last September and follows with oncology in the outpatient setting. Patient has had prolonged hospitalization and also had cardiac arrest while hospitalized and was intubated and sent to the ICU and return of spontaneous circulation was noted with multiple medical consultations following. Family was agreeable to no code although wanted to continue other supportive services and patient ultimately was extubated successfully currently on room air today and has some generalized edema of the lower extremities along with occasional shortness of breath. Patient's kidney functions trending upward although stable and has been cleared by cardiology and pulmonary for discharge to ECF. Patient with significant weakness is now agreeable to build strength and mobility as he would like to discharge home eventually and continue to pursue oncological treatment for his pancreatic cancer. Patient is agreeable he will withhold all oncological services and treatment while in rehab and oncology is aware of this. Currently no reports of chest pain, shortness of breath, or palpitations. Patient is afebrile. No reports of nausea or vomiting and patient is tolerating diet. [facility]. Guarded prognosis given his comorbidities and overall health. Physical exam: Gen: This is a 68-year-old male who is awake, alert and oriented 3, thin built, elderly appearing HEENT: Head is atraumatic, normocephalic. Pupils equal, round. Sclerae is anicteric. NECK: Supple. No JVD. No lymphadenopathy. No thyromegaly. LUNGS: Diminished breath sounds bilaterally with some scattered rhonchi. Faint crackles noted at the bases. No intercostal retractions. HEART: S1, S2 are muffled ABDOMEN: Soft. Bowel sounds are present. No masses. No tenderness. EXTREMITIES: Generalized lower extremity and pedal edema. No calf tenderness. NEUROLOGICAL: Patient is awake, alert and oriented x3. Cranial nerves 2 through 12 are grossly intact. Diffusely weak Please refer to medication reconciliation sheet for a list of medications. The impression and plan of care has been dictated by Jasmina Toledo, Nurse Practitioner as directed. Dr. Alex MD I have performed a history and examination and MDM of this patient, discussed the same with the dictator, and agree with the dictator's assessment and plan as written ,documented as a scribe. Based on total visit time, I have performed more than 50% of the visit. Patient Condition at Discharge: Fair Plan - Discharge Summary New Discharge Prescriptions: New INSULIN ASPART (NovoLOG) [NovoLOG (formulary)] 0 unit SQ ACHS each Ipratropium-Albuterol Nebulize [Duoneb 0.5 mg-3 mg/3 ml Soln] 3 ml INHALATION RT-QID each Ipratropium-Albuterol Nebulize [Duoneb 0.5 mg-3 mg/3 ml Soln] 3 ml INHALATION RT-Q2H PRN each PRN Reason: Shortness Of Breath Or Wheezing Pantoprazole Sodium [Protonix] 40 mg PO DAILY #30 tab Pyridoxine [Vitamin B-6] 50 mg PO BID tab Continue Nitroglycerin Sl Tabs [Nitrostat] 0.4 mg SUBLINGUAL Q5M PRN PRN Reason: Chest Pain Cyclobenzaprine [Flexeril] 10 mg PO HS PRN PRN Reason: Muscle Spasm Isosorbide Mononitrate ER [Imdur] 30 mg PO DAILY Apixaban [Eliquis] 5 mg PO BID Cyanocobalamin (Vitamin B-12) [Vitamin B-12] 1,000 mcg PO DAILY Pravastatin Sodium [Pravachol] 20 mg PO HS Metoprolol Tartrate [Lopressor] 50 mg PO HS Metoprolol Tartrate [Lopressor] 100 mg PO DAILY Furosemide [Lasix] 40 mg PO DAILY HYDROcodone/APAP 10-325MG [[place] 10-325] 1 tab PO Q6HR PRN #4 tab PRN Reason: Pain Cholecalciferol [Vitamin D3 (25 Mcg = 1000 Iu)] 50 mcg PO DAILY Discontinued allopurinoL [Zyloprim] 100 mg PO DAILY Insulin Degludec [Tresiba Flextouch U-100 Pen] 10 units SQ DAILY #0 Discharge Medication List Apixaban [Eliquis] 5 mg PO BID 03/20/18 [History] Cyanocobalamin (Vitamin B-12) [Vitamin B-12] 1,000 mcg PO DAILY 03/20/18 [History] Cyclobenzaprine [Flexeril] 10 mg PO HS PRN 05/29/18 [History] Isosorbide Mononitrate ER [Imdur] 30 mg PO DAILY 03/20/18 [History] Nitroglycerin Sl Tabs [Nitrostat] 0.4 mg SUBLINGUAL Q5M PRN 03/20/18 [History] Pravastatin Sodium [Pravachol] 20 mg PO HS 12/13/19 [History] Cholecalciferol [Vitamin D3 (25 Mcg = 1000 Iu)] 50 mcg PO DAILY 10/13/22 [History] Metoprolol Tartrate [Lopressor] 50 mg PO HS 10/13/22 [History] Metoprolol Tartrate [Lopressor] 100 mg PO DAILY 10/13/22 [History] Furosemide [Lasix] 40 mg PO DAILY 10/20/22 [History] HYDROcodone/APAP 10-325MG [[place] 10-325] 1 tab PO Q6HR PRN #4 tab 02/20/23 [Rx] INSULIN ASPART (NovoLOG) [NovoLOG (formulary)] 0 unit SQ ACHS each 02/20/23 [Rx] Ipratropium-Albuterol Nebulize [Duoneb 0.5 mg-3 mg/3 ml Soln] 3 ml INHALATION RT-Q2H PRN each 02/20/23 [Rx] Ipratropium-Albuterol Nebulize [Duoneb 0.5 mg-3 mg/3 ml Soln] 3 ml INHALATION RT-QID each 02/20/23 [Rx] Pantoprazole Sodium [Protonix] 40 mg PO DAILY #30 tab 02/20/23 [Rx] Pyridoxine [Vitamin B-6] 50 mg PO BID tab 02/20/23 [Rx] Follow up Appointment(s)/Referral(s): Matthew Rosa MD [STAFF PHYSICIAN] - 03/13/23 8:30 am ([facility], [address] ) Aging,[place] [NON-STAFF] - As Needed (Call for housekeeping resources, Meals on Wheels, and other resources. ) None,Stated [REFERRING] - 1-2 days Activity/Diet/Wound Care/Special Instructions: Patient is going to [facility] on the [facility] Activity as tolerated Patient to follow-up with cardiology outpatient Patient follow-up with oncology outpatient once discharged from [facility] and agreeable with no treatment while in the rehab for any oncological services Continue monitoring Accu-Cheks before meals and at bedtime and use sliding scale NovoLog sliding scale 0-150 equals 0 units 151-200 equals 2 units 201-250 equals 4 units 251-300 equals 6 units 301-350 equals 8 units 351-400 equals 10 units Please notify provider if blood sugar is 400 or above Continue full liquid diet and slowly advance as tolerated Discharge Disposition: TRANSFER TO SNF/ECF
--- NOTE | 2023-02-20 16:03 | P.PN ---
Subjective Progress Note Date: 02/20/23 Principal diagnosis: A. fib with RVR. Patient currently receiving neoadjuvant treatment for pancreatic cancer In f/u today patient Is on the bedside commode. Reports that his abdominal pain is stable, tolerable. He is tolerating small amounts of oral intake, no fevers, nausea, vomiting. He reports that he is going to rehabilitation. Objective - Vital Signs Vital signs: Vital Signs Temp 97.5 F L 02/20/23 11:40 Pulse 68 02/20/23 12:51 Resp 16 02/20/23 11:40 BP 150/70 02/20/23 11:40 Pulse Ox 99 02/20/23 11:40 FiO2 40 02/15/23 12:00 Intake & Output 02/19/23 02/20/23 02/20/23 18:59 06:59 18:59 Intake Total 440 540 240 Output Total 600 650 Balance -160 540 -410 Intake: Oral 440 540 240 Output: Urine 600 650 Other: Voiding Method Indwelling Catheter Indwelling Catheter Indwelling Catheter # Voids 0 # Bowel Movements 0 ABP, PAP, CO, CI - Last Documented Arterial Blood Pressure 162/62 - Constitutional Constitutional Comment(s): Anasarca General appearance: Present: average body habitus, cooperative, no acute distress - EENT Eyes: Present: anicteric sclerae, EOMI ENT: Present: hearing grossly normal - Respiratory Details: Respirations unlabored at rest - Neurologic Neurologic: Present: CNII-XII intact (Grossly) - Musculoskeletal Musculoskeletal: Present: generalized weakness - Psychiatric Psychiatric: Present: A&O x's 3, appropriate affect, intact judgment & insight - Labs CBC & Chem 7: 02/20/23 11:16 02/20/23 11:16 Labs: Abnormal Lab Results - Last 24 Hours (Table) 02/19/23 02/19/23 02/20/23 Range/Units 14:37 16:26 11:16 WBC 16.1 H 13.6 H (3.8-10.6) k/uL RBC 2.74 L 2.48 L (4.30-5.90) m/uL Hgb 9.5 L D 8.7 L (13.0-17.5) gm/dL Hct 29.7 L 27.2 L (39.0-53.0) % MCV 108.6 H 109.3 H (80.0-100.0) fL RDW 19.4 H 18.9 H (11.5-15.5) % Neutrophils # 13.6 H 11.3 H (1.3-7.7) k/uL Macrocytosis Marked A Marked A Chloride (98-107) mmol/L Carbon Dioxide (22-30) mmol/L BUN (9-20) mg/dL Creatinine (0.66-1.25) mg/dL Glucose (74-99) mg/dL POC Glucose (mg/dL) 115 H (70-110) mg/dL Calcium (8.4-10.2) mg/dL Total Protein (6.3-8.2) g/dL Albumin (3.5-5.0) g/dL 02/20/23 02/20/23 Range/Units 11:16 11:36 WBC (3.8-10.6) k/uL RBC (4.30-5.90) m/uL Hgb (13.0-17.5) gm/dL Hct (39.0-53.0) % MCV (80.0-100.0) fL RDW (11.5-15.5) % Neutrophils # (1.3-7.7) k/uL Macrocytosis Chloride 115 H (98-107) mmol/L Carbon Dioxide 18 L (22-30) mmol/L BUN 23 H (9-20) mg/dL Creatinine 2.04 H (0.66-1.25) mg/dL Glucose 110 H (74-99) mg/dL POC Glucose (mg/dL) 117 H (70-110) mg/dL Calcium 7.8 L (8.4-10.2) mg/dL Total Protein 4.8 L (6.3-8.2) g/dL Albumin 2.0 L (3.5-5.0) g/dL Assessment and Plan (1) Atrial fibrillation with RVR Status: Acute Priority: High Code(s): I48.91 - UNSPECIFIED ATRIAL FIBRILLATION SNOMED Code(s): 593971337615516 (2) Bicytopenia Status: Acute Code(s): D75.89 - OTHER SPECIFIED DISEASES OF BLOOD AND BLOOD- FORMING ORGANS SNOMED Code(s): 53548785 (3) Diarrhea Status: Acute Priority: High Code(s): R19.7 - DIARRHEA, UNSPECIFIED SNOMED Code(s): 83466216 (4) Intractable abdominal pain Status: Acute Priority: High Code(s): R10.9 - UNSPECIFIED ABDOMINAL PAIN SNOMED Code(s): 03489667 Plan: A-fib -New onset -VQ low probability for PE -doppler of BLE is neg for DVT -Cardiology following -on eliquis anemia and thrombocytopenia -2/2 chemo -Anemia persists, stable -Thrombocytopenia resolved Diarrhea -C. diff, infection workup on the stool all reported negative -resolved, pt now having some mild constipation, meds ordered pancreatic adenocarcinoma -Patient has received 3 cycles of neoadjuvant chemo. Plan is to get patient to surgery. Chemo is curative intent. -Agree with aggressive management of patient post cardiac arrest. -dose adjustments will be necessary for pt to tolerate more treatment to get to surgery. This will be adjusted when pt f/u with Primary Oncologist-Up appointment in the chart -Patient will not receive any additional therapy until he is completely rehabilitated and out of rehabilitation facility. -follow up to assess readiness to resume Tx
== END 2023-02-20 14:52 | DRG 391 ==
LOC: EC 14:36 → 3SCARD 16:56 → 2SICU 02-12 12:15 → 3SCARD 02-16 13:25
PROVIDERS: ADMIT Internal Medicine; ATTEND Internal Medicine
PROC: 30233R1 Transfusion of Nonautologous Platelets into Peripheral Vein, Percutaneous Approach (ICD-10-PCS; 2023-02-03)
PROC: 6A550Z2 Pheresis of Platelets, Single (ICD-10-PCS; 2023-02-04)
PROC: 02HV33Z Insertion of Infusion Device into Superior Vena Cava, Percutaneous Approach (ICD-10-PCS; 2023-02-06)
PROC: 3E0436Z Introduction of Nutritional Substance into Central Vein, Percutaneous Approach (ICD-10-PCS; 2023-02-06)
PROC: 5A12012 Performance of Cardiac Output, Single, Manual (ICD-10-PCS; principal; 2023-02-12)
PROC: 0BH18EZ Insertion of Endotracheal Airway into Trachea, Via Natural or Artificial Opening Endoscopic (ICD-10-PCS; 2023-02-12)
PROC: 5A1945Z Respiratory Ventilation, 24-96 Consecutive Hours (ICD-10-PCS; 2023-02-12)
PROC: 3E033XZ Introduction of Vasopressor into Peripheral Vein, Percutaneous Approach (ICD-10-PCS; 2023-02-12)
PROC: 5A2204Z Restoration of Cardiac Rhythm, Single (ICD-10-PCS; 2023-02-12)
PROC: 03HY32Z Insertion of Monitoring Device into Upper Artery, Percutaneous Approach (ICD-10-PCS; 2023-02-12)
PROC: 4A133B1 Monitoring of Arterial Pressure, Peripheral, Percutaneous Approach (ICD-10-PCS; 2023-02-12)
PROC: 4A133J1 Monitoring of Arterial Pulse, Peripheral, Percutaneous Approach (ICD-10-PCS; 2023-02-12)
PROC: 02HV33Z Insertion of Infusion Device into Superior Vena Cava, Percutaneous Approach (ICD-10-PCS; 2023-02-12)
DX: A09 Infectious gastroenteritis and colitis, unspecified (principal); D61.810 Antineoplastic chemotherapy induced pancytopenia; I46.9 Cardiac arrest, cause unspecified; J96.01 Acute respiratory failure with hypoxia; J69.0 Pneumonitis due to inhalation of food and vomit; E43 Unspecified severe protein-calorie malnutrition; I49.01 Ventricular fibrillation; R64 Cachexia; G93.1 Anoxic brain damage, not elsewhere classified; I47.20 Ventricular tachycardia, unspecified; K80.21 Calculus of gallbladder without cholecystitis with obstruction; I48.19 Other persistent atrial fibrillation; C25.0 Malignant neoplasm of head of pancreas; Z66 Do not resuscitate; I27.20 Pulmonary hypertension, unspecified; K26.9 Duodenal ulcer, unspecified as acute or chronic, without hemorrhage or perforation; R62.7 Adult failure to thrive; E11.22 Type 2 diabetes mellitus with diabetic chronic kidney disease; I95.9 Hypotension, unspecified; D69.59 Other secondary thrombocytopenia; E11.51 Type 2 diabetes mellitus with diabetic peripheral angiopathy without gangrene; I12.9 Hypertensive chronic kidney disease with stage 1 through stage 4 chronic kidney disease, or unspecified chronic kidney disease; N18.30 Chronic kidney disease, stage 3 unspecified; I34.0 Nonrheumatic mitral (valve) insufficiency; T46.0X5A Adverse effect of cardiac-stimulant glycosides and drugs of similar action, initial encounter; I34.81 Nonrheumatic mitral (valve) annulus calcification; E78.5 Hyperlipidemia, unspecified; M79.89 Other specified soft tissue disorders; D63.0 Anemia in neoplastic disease; G89.3 Neoplasm related pain (acute) (chronic); D75.89 Other specified diseases of blood and blood-forming organs; I25.5 Ischemic cardiomyopathy; T45.1X5A Adverse effect of antineoplastic and immunosuppressive drugs, initial encounter; I25.10 Atherosclerotic heart disease of native coronary artery without angina pectoris; R29.6 Repeated falls; I44.0 Atrioventricular block, first degree; E53.1 Pyridoxine deficiency; K12.30 Oral mucositis (ulcerative), unspecified; R15.2 Fecal urgency; W18.30XA Fall on same level, unspecified, initial encounter; Y92.239 Unspecified place in hospital as the place of occurrence of the external cause; Z96.89 Presence of other specified functional implants; Z68.25 Body mass index [BMI] 25.0-25.9, adult; Z82.49 Family history of ischemic heart disease and other diseases of the circulatory system; Z87.891 Personal history of nicotine dependence; Z95.5 Presence of coronary angioplasty implant and graft; Z88.5 Allergy status to narcotic agent; Z79.899 Other long term (current) drug therapy; Z79.4 Long term (current) use of insulin; Z79.01 Long term (current) use of anticoagulants; Z91.81 History of falling
CPT/HCPCS: 36415; 36573; 36600; 70450; 71045; 71046; 72220; 74176; 78582; 80048; 80053; 80162; 82140; 82150; 82306; 82330; 82607; 82746; 82805; 83605; 83690; 83735; 83880; 84100; 84207; 84439; 84443; 84478; 84481; 84484; 85025; 85027; 85379; 85610; 85730; 86850; 86900; 86901; 87045; 87046; 87070; 87205; 87324; 87328; 87329; 92950; 93005; 93970; 94002; 94003; 94640; 94760; 95816; 96361; 96365; 96366; 96367; 96375; 99291

== ENCOUNTER 2023-02-22 00:59 | Inpatient (IN) | payer MEDICARE, OTHER ==
[2023-02-22] MEDS ORDERED: HYDROmorphone 0.5 MG/0.5 ML SYRINGE IVP STA (01:16)
--- NOTE | 2023-02-22 01:19 | ED ---
General Adult HPI - General Chief complaint: Chest Pain Stated complaint: Chest Pain Time Seen by Provider: 02/22/23 01:06 Source: patient, EMS Mode of arrival: EMS Limitations: no limitations - History of Present Illness Initial comments: Dictation was produced using [employer] dictation software. please excuse any grammatical, word or spelling errors. Chief Complaint: 68-year-old male multiple comorbidities presents to the emergency department for chest pain History of Present Illness: Patient is a 60-year-old male who has multiple comorbidities. Patient has history of A. fib, dyslipidemia hypertension pancreatic cancer. He was recently hospitalized emergency department initially for A. fib with RVR. There is hospitalization he had a headache arrest. Successfully survived a cardiac arrest ultimately was discharged [facility]. She states that he is very dissatisfied with his care at [facility]. States that he has significant chest pain that was from the CPR. He requested to [facility] staff on multiple occasions for some pain medication however was not receiving his prescription. Patient ultimately requested discharge from the facility. He asked EMS to grab all of his belongings and come to the ER. Patient states that he has significant chest tenderness or CPR was performed. Patient has no other complaints at this time. The ROS documented in this emergency department record has been reviewed and confirmed by me. Those systems with pertinent positive or negative responses have been documented in the HPI. All other systems are other negative and/or noncontributory. - Related Data Home Medications Medication Instructions Recorded Confirmed Apixaban [Eliquis] 5 mg PO BID 03/20/18 01/31/23 Cyanocobalamin (Vitamin B-12) 1,000 mcg PO DAILY 03/20/18 01/31/23 [Vitamin B-12] Cyclobenzaprine [Flexeril] 10 mg PO HS PRN 03/20/18 01/31/23 Isosorbide Mononitrate ER [Imdur] 30 mg PO DAILY 03/20/18 01/31/23 Nitroglycerin Sl Tabs [Nitrostat] 0.4 mg SUBLINGUAL Q5M PRN 03/20/18 01/31/23 Pravastatin Sodium [Pravachol] 20 mg PO HS 12/13/19 01/31/23 Cholecalciferol [Vitamin D3 (25 50 mcg PO DAILY 10/13/22 01/31/23 Mcg = 1000 Iu)] Metoprolol Tartrate [Lopressor] 50 mg PO HS 10/13/22 01/31/23 Metoprolol Tartrate [Lopressor] 100 mg PO DAILY 10/13/22 01/31/23 Furosemide [Lasix] 40 mg PO DAILY 10/20/22 01/31/23 Previous Rx's Medication Instructions Recorded HYDROcodone/APAP 10-325MG [Bode 1 tab PO Q6HR PRN #4 tab 02/20/23 10-325] INSULIN ASPART (NovoLOG) [NovoLOG 0 unit SQ ACHS each 02/20/23 (formulary)] Ipratropium-Albuterol Nebulize 3 ml INHALATION RT-Q2H PRN each 02/20/23 [Duoneb 0.5 mg-3 mg/3 ml Soln] Ipratropium-Albuterol Nebulize 3 ml INHALATION RT-QID each 02/20/23 [Duoneb 0.5 mg-3 mg/3 ml Soln] Pantoprazole Sodium [Protonix] 40 mg PO DAILY #30 tab 02/20/23 Pyridoxine [Vitamin B-6] 50 mg PO BID tab 02/20/23 Allergies Allergy/AdvReac Type Severity Reaction Status Date / Time morphine Allergy Swelling Verified 01/31/23 15:27 Review of Systems ROS Statement: Those systems with pertinent positive or pertinent negative responses have been documented in the HPI. ROS Other: All systems not noted in ROS Statement are negative. Past Medical History Past Medical History: Atrial Fibrillation, Chest Pain / Angina, Diabetes Mellitus, Hyperlipidemia, Hypertension, Musculoskeletal Disorder, Osteoarthritis (OA) Additional Past Medical History / Comment(s): BACK PAIN R/T OLD INJURY. EDEMA FEET/ANKLES. kidney stones, Recent diagnosis of Pancreatic tumor. Patient has not had follow-up with Oncologist yet and was readmitted for increased pain. History of Any Multi-Drug Resistant Organisms: None Reported Past Surgical History: Back Surgery, Heart Catheterization, Heart Catheterization With Stent, Orthopedic Surgery Additional Past Surgical History / Comment(s): R Knee scope; Colonoscopy; Deviated Septum Repair. BACK SURG.X2 PTCA W/ STENTS X2. CARDIOVERSION 03/28/18. ERCP last week with Dr. Morfin out of [facility] with stent placement. Past Anesthesia/Blood Transfusion Reactions: No Reported Reaction Date of Last Stent Placement:: 1997 Past Psychological History: No Psychological Hx Reported Smoking Status: Former smoker Past Alcohol Use History: None Reported Past Drug Use History: None Reported - Past Family History Mother Family Medical History: Dementia, Memory Impairment Additional Family Medical History / Comment(s): Mother in her 80s r/t advanced dementia. Father Family Medical History: Myocardial Infarction (ME) Additional Family Medical History / Comment(s): Father from coronary artery disease. Sister(s) Additional Family Medical History / Comment(s): Patient has 3 sisters one past from CVA. One has coronary artery disease with stent in 1 has no major medical problems. Patient is not having any children. Patient does not have any brothers. General Exam - General Exam Comments Initial Comments: PHYSICAL EXAM: General Impression: Alert and oriented x3, not in acute distress HEENT: Normocephalic atraumatic, extra-ocular movements intact, pupils equal and reactive to light bilaterally, mucous membranes moist. Cardiovascular: Heart regular rate and rhythm Chest: Able to complete full sentences, no retractions, no tachypnea, exquisite palpatory tenderness to the sternum Abdomen: abdomen soft, non-tender, non-distended, no organomegaly Musculoskeletal: Pulses present and equal in all extremities, no peripheral edema Motor: no focal deficits noted Neurological: CN II-XII grossly intact, no focal motor or sensory deficits noted Skin: Intact with no visualized rashes Psych: Normal affect and mood Limitations: no limitations Course Vital Signs 02/22/23 02/22/23 01:10 02:12 Temperature 97.8 F Pulse Rate 94 78 Respiratory 18 16 Rate Blood Pressure 135/109 133/85 O2 Sat by Pulse 94 L 99 Oximetry Medical Decision Making - Medical Decision Making Was pt. sent in by a medical professional or institution (, PA, [facility] [place], urgent care, hospital, or residential...) When possible be specific @ -detention Did you speak to anyone other than the patient for history (EMS, parent, family, police, friend...)? What history was obtained from this source @ -No Did you review nursing and triage notes (agree or disagree)? Why? @ -I reviewed and agree with nursing and triage notes Were old charts reviewed (outside hosp., previous admission, EMS record, old EKG, old radiological studies, urgent care reports/EKG's, residential records)? Report findings @ -Chart from previous admission was reviewed showing the patient had V. fib arrest, CPR. Patient ultimately activated with good neurologic function Differential Diagnosis (chest pain, altered mental status, abdominal pain women, abdominal pain men, vaginal bleeding, musculoskeletal, weakness, fever, dyspnea, syncope, headache, dizziness, GI bleed, back pain, seizure, CVA, palpatations, mental health)? @ -Differential Chest Pain: Stable Angina, Unstable Angina, STEMI, NSTEMI Aortic Dissection, Pneumothorax, Musculoskeletal, Esophageal Spasm GERD, Cholecystitis, Pancreatitis, Zoster, this is not meant to be an all-inclusive list. EKG interpreted by me (3pts min.). @ -My EKG interpretation: Ventricular rate 60, A. fib, QRS 112, QTc 383. no QTC prolongation, no ST or T-wave changes noted. Overall, this EKG is unremarkable X-rays interpreted by me (1pt min.). @ -None done CT interpreted by me (1pt min.). @ -None done U/S interpreted by me (1pt. min.). @ -None done What testing was considered but not performed or refused? (CT, X-rays, U/S, labs)? Why? @ -None What meds were considered but not given or refused? Why? @ -None Did you discuss the management of the patient with other professionals (professionals i.e. , PA, [facility] [place], lab, RT, psych nurse, social worker school, child and adolescent psychiatrist, teacher, head correction officer, case coordinator)? Give summary @ -Discussed with hospitalist for admission Was smoking cessation discussed for >3mins.? @ -No Was critical care preformed (if so, how long)? @ -No Were there social determinants of health that impacted care today? How? (Homelessness, low income, unemployed, alcoholism, drug addiction, transportation, low edu. Level, literacy, decrease access to med. care, alf, rehab)? @ -No Was there de-escalation of care discussed even if they declined (Discuss DNR or withdrawal of care, Hospice)? DNR status @ -No What co-morbidities impacted this encounter? (DM, HTN, Smoking, COPD, CAD, Cancer, CVA, ARF, Chemo, Hep., AIDS, mental health diagnosis, sleep apnea, morbid obesity)? @ -None Was patient admitted / discharged? Hospital course, mention meds given and route, prescriptions, significant lab abnormalities, going to OR and other pertinent info. @ -68 Year-old male presents to the ER for chest pain. Patient has re producible is exquisite chest tenderness to the sternum. This likely the result of chest compressions from recent cardiac arrest. Patient refusing to go back to [facility]. Patient be admitted with constipation case management for alternate disposition Undiagnosed new problem with uncertain prognosis? @ -No Drug Therapy requiring intensive monitoring for toxicity (Heparin, Nitro, Insulin, Cardizem)? @ -No Were any procedures done? @ -No Diagnosis/symptom? Acute, or Chronic, or Acute on Chronic? Uncomplicated (without systemic symptoms) or Complicated (systemic symptoms)? @ -1. Chest pain Side effects of treatment? @ -No Exacerbation, Progression, or Severe Exacerbation? @ -No Poses a threat to life or bodily function? How? (Chest pain, USA, ME, pneumonia, PE, COPD, DKA, ARF, appy, cholecystitis, CVA, Diverticulitis, Homicidal, Ivette cidal, threat to staff... and all critical care pts) @ -yes - Lab Data Result diagrams: 02/22/23 01:22 02/22/23 01:22 Lab Results 02/22/23 02/22/23 Range/Units 01:22 01:22 WBC 14.3 H (3.8-10.6) k/uL RBC 2.38 L (4.30-5.90) m/uL Hgb 8.5 L (13.0-17.5) gm/dL Hct 25.2 L (39.0-53.0) % MCV 105.9 H (80.0-100.0) fL MCH 35.7 H (25.0-35.0) pg MCHC 33.7 (31.0-37.0) g/dL RDW 19.6 H (11.5-15.5) % Plt Count 268 (150-450) k/uL MPV 8.4 Neutrophils % 83 % Lymphocytes % 10 % Monocytes % 5 % Eosinophils % 1 % Basophils % 0 % Neutrophils # 11.9 H (1.3-7.7) k/uL Lymphocytes # 1.5 (1.0-4.8) k/uL Monocytes # 0.6 (0-1.0) k/uL Eosinophils # 0.2 (0-0.7) k/uL Basophils # 0.0 (0-0.2) k/uL Manual Slide Review Performed Polychromasia Present Hypochromasia Slight Poikilocytosis Slight Anisocytosis Slight Macrocytosis Marked A Sodium 139 (137-145) mmol/L Potassium 4.0 (3.5-5.1) mmol/L Chloride 113 H (98-107) mmol/L Carbon Dioxide 18 L (22-30) mmol/L Anion Gap 8 mmol/L BUN 25 H (9-20) mg/dL Creatinine 2.04 H (0.66-1.25) mg/dL Est GFR (CKD-EPI)AfAm 38 (>60 ml/min/1.73 sqM) Est GFR (CKD-EPI)NonAf 33 (>60 ml/min/1.73 sqM) Glucose 131 H (74-99) mg/dL Calcium 7.8 L (8.4-10.2) mg/dL Disposition Clinical Impression: Chest pain Disposition: ADMITTED IP TO THIS [facility] Condition: Fair Decision Time: 02:28
[2023-02-22 01:38] LABS: Calcium 7.8 mg/dL (8.4-10.2)
[2023-02-22 01:40] LABS: Anisocytosis Slight; Basophils % (A) 0 %; Eosinophils # (A) 0.2 k/uL (0-0.7); Eosinophils % (A) 1 %; HCT 25.2 % (39.0-53.0); HGB 8.5 gm/dL (13.0-17.5); Hypochromasia Slight; Lymphocytes # (A) 1.5 k/uL (1.0-4.8); Lymphocytes % (A) 10 %; MCH 35.7 pg (25.0-35.0); MCHC 33.7 g/dL (31.0-37.0); MCV 105.9 fL (80.0-100.0); Macrocytosis Marked; Mean Platelet Volume 8.4; Monocytes # (A) 0.6 k/uL (0-1.0); Monocytes % (A) 5 %; Neutrophils # (A) 11.9 k/uL (1.3-7.7); Neutrophils % (A) 83 %; Platelet Count 268 k/uL (150-450); Poikilocytosis Slight; RBC 2.38 m/uL (4.30-5.90); RDW 19.6 % (11.5-15.5); WBC 14.3 k/uL (3.8-10.6)
[2023-02-22 02:15] LABS: Polychromasia Present
[2023-02-22] MEDS ORDERED: HYDROmorphone 1 MG/ML 1 ML SYRINGE IVP STA (02:22)
[2023-02-22] MEDS ORDERED: NALOXONE 0.4 MG/ML 1 ML VIAL IV PRN (02:24)
--- NOTE | 2023-02-22 02:47 | XR ---
EXAM: XR Chest, 2 Views CLINICAL HISTORY: ITS.REASON XR Reason: chest pain TECHNIQUE: Frontal and lateral views of the chest. COMPARISON: No relevant prior studies available. IMPRESSION: Cardiomegaly. Large right pleural effusion.
[2023-02-22] MEDS: HYDROcodone/APAP 10-325MG 1 EACH TAB PO PRN ×4 (03:58→20:34)
[2023-02-22] MEDS ORDERED: NITROGLYCERIN SL TABS 0.4 MG TAB SUBLINGUAL PRN (08:31)
[2023-02-22] MEDS ORDERED: IPRATROPIUM-ALBUTEROL 3 ML NEB INHALATION PRN (08:31)
[2023-02-22] MEDS: CYCLOBENZAPRINE 10 MG TAB PO PRN (08:45)
[2023-02-22] MEDS: METOPROLOL TARTRATE 50 MG TAB PO SCH (08:45)
[2023-02-22] MEDS: CHOLECALCIFEROL 25 MCG (1000 IU) TABLET PO SCH (08:47)
[2023-02-22] MEDS: CYANOCOBALAMIN 500 MCG TAB PO SCH (08:48)
[2023-02-22] MEDS: ISOSORBIDE MONONITRATE ER 30 MG TAB.ER.24H PO SCH (08:48)
[2023-02-22] MEDS: APIXABAN 5 MG TAB PO SCH ×2 (08:48→20:34)
--- NOTE | 2023-02-22 13:29 | P.CRDCN ---
History of Present Illness Consult date: 02/22/23 History of present illness: History of Present Illness: The patient is a 68-year-old male with a known history of severe ischemic cardiomyopathy, pancreatic cancer who was recently discharged from the hospital, during his hospital stay he had an episode of ventricle tachycardiaventricular fibrillation requiring CPR and intubation. He presents back to the hospital wi th symptoms of chest discomfort, respirophasic and worse with palpation that started since this CPR. He has dyspnea on exertion that has been stable and mild peripheral edema. He has no palpitations. He has a history of chronic atrial fibrillation and has been anticoagulated. His ejection fraction is around 30%. He has a prior stenting of the RCA. In the past he was being evaluated for ICD implantation and that time was canceled after the diagnosis of pancreatic cancer. On presentation he is in atrial fibrillation that has been chronic. Medications: Pravastatin 20 mg daily, isosorbide 30 mg daily, metoprolol tartrate 100 mg in the morning and 50 the afternoon, insulin, vitamin D, Flex eril, Eliquis Review of Systems: Respiratory: He has chronic dyspnea and cough GI: He has abdominal discomfort, mild nausea : No hematuria or dysuria. Nervous System: No stroke or seizure. Physical Examination: 68-year-old male, cachectic, appears older than stated age ,Blood pressure 127/60, Heart rate 70 Head: Normocephalic. Eyes: Sclerae nonicteric. Neck: Good carotid upstroke, no bruit, no jugular venous distention. Lungs: Decreased breath sounds at the base Heart: Regular rate and rhythm, S1-S2, no S3, no rub. Systolic ejection murmur 3/6. Reproducible chest discomfort with palpation Abdomen: Soft mild generalized tenderness, positive bowel sounds no organomegaly. Extremities: 1+ edema, intact distal pulses. Labs: WBC 14.3, hemoglobin 8.5, BUN 25, creatinine 2.04. Chest x-ray with pleural effusion EKG: Atrial fibrillation with nonspecific ST-T wave changes Impression: 1. Chest discomfort, musculoskeletal, related to his recent CPR, no evidence of acute coronary syndrome 2. Pancreatic adenocarcinoma 3. History of CAD 4. Severe ischemic cardiomyopathy 5. Permanent atrial fibrillation Plan: 1. Continue beta arslan and anticoagulation 2. No indication for any further cardiac workup 3. Patient is not a candidate for any aggressive cardiac workup in view of his severe malignancy 4. We will see him on as-needed basis, please feel free to call us for any question 5. Thank you for this consult Past Medical History Past Medical History: Atrial Fibrillation, Chest Pain / Angina, Diabetes Mellitus, Hyperlipidemia, Hypertension, Musculoskeletal Disorder, Osteoarthritis (OA) Additional Past Medical History / Comment(s): BACK PAIN R/T OLD INJURY. EDEMA FEET/ANKLES. kidney stones, Recent diagnosis of Pancreatic tumor. Patient has not had follow-up with Oncologist yet and was readmitted for increased pain. History of Any Multi-Drug Resistant Organisms: None Reported Past Surgical History: Back Surgery, Heart Catheterization, Heart Catheteri zation With Stent, Orthopedic Surgery Additional Past Surgical History / Comment(s): R Knee scope; Colonoscopy; Deviated Septum Repair. BACK SURG.X2 PTCA W/ STENTS X2. CARDIOVERSION 03/28/18. ERCP last week with Dr. Morfin out of [facility] with stent placement. Past Anesthesia/Blood Transfusion Reactions: No Reported Reaction Date of Last Stent Placement:: 1997 Past Psychological History: No Psychological Hx Reported Smoking Status: Former smoker Past Alcohol Use History: None Reported Additional Past Alcohol Use History / Comment(s): Patient was a smoker one pack per day for 30 years and quit 30 years ago. He denies any marijuana, street drug or alcohol use. Patient lives alone. Past Drug Use History: None Reported - Past Family History Mother Family Medical History: Dementia, Memory Impairment Additional Family Medical History / Comment(s): Mother in her 80s r/t advanced dementia. Father Family Medical History: Myocardial Infarction ([place]) Additional Family Medical History / Comment(s): Father from coronary artery disease. Sister(s) Additional Family Medical History / Comment(s): Patient has 3 sisters one past from CVA. One has coronary artery disease with stent in 1 has no major medical problems. Patient is not having any children. Patient does not have any brothers. Medications and Allergies Home Medications Medication Instructions Recorded Confirmed Type Apixaban [Eliquis] 5 mg PO BID@0900,2100 03/20/18 02/22/23 History Cyanocobalamin (Vitamin B-12) 1,000 mcg PO DAILY@0900 03/20/18 02/22/23 History [Vitamin B-12] Cyclobenzaprine [Flexeril] 10 mg PO HS PRN 03/20/18 02/22/23 History Isosorbide Mononitrate ER [Imdur] 30 mg PO DAILY@0900 03/20/18 02/22/23 History Nitroglycerin Sl Tabs [Nitrostat] 0.4 mg SUBLINGUAL Q5M PRN 03/20/18 02/22/23 History Pravastatin Sodium [Pravachol] 20 mg PO HS@209912/13/19 02/22/23 History Cholecalciferol [Vitamin D3 (25 50 mcg PO DAILY 10/13/22 02/22/23 History Mcg = 1000 Iu)] Metoprolol Tartrate [Lopressor] 50 mg PO HS@209910/13/22 02/22/23 History Metoprolol Tartrate [Lopressor] 100 mg PO DAILY@0900 10/13/22 02/22/23 History Furosemide [Lasix] 40 mg PO BID@0600,1400 10/20/22 02/22/23 History HYDROcodone/APAP 10-325MG [[place] 1 tab PO Q6HR PRN #4 tab 02/20/23 02/22/23 Rx 10-325] Ipratropium-Albuterol Nebulize 3 ml INHALATION RT-Q2H PRN each 02/20/23 02/22/23 Rx [Duoneb 0.5 mg-3 mg/3 ml Soln] Ipratropium-Albuterol Nebulize 3 ml INHALATION RT-QID each 02/20/23 02/22/23 Rx [Duoneb 0.5 mg-3 mg/3 ml Soln] Insulin Lispro [humaLOG Kwikpen] See Protocol SQ ACHS 02/22/23 02/22/23 History Pantoprazole Sodium [Protonix] 40 mg PO DAILY@0600 02/22/23 02/22/23 History Pyridoxine [Vitamin B-6] 50 mg PO BID@0900,2100 02/22/23 02/22/23 History Allergies Allergy/AdvReac Type Severity Reaction Status Date / Time morphine Allergy Swelling Verified 02/22/23 06:49 Physical Exam Vitals: Vital Signs Temp Pulse Pulse Resp BP BP Pulse Ox 02/22/23 07:45 97.7 F 66 19 164/76 98 02/22/23 03:54 97.9 F 70 18 127/61 97 02/22/23 03:35 78 16 133/79 99 02/22/23 02:12 78 16 133/85 99 02/22/23 01:10 97.8 F 94 18 135/109 94 L Intake and Output 02/21/23 02/22/23 02/22/23 22:59 06:59 14:59 Other: Voiding Method Indwelling Catheter Indwelling Catheter Weight 93.894 kg Results 02/22/23 01:22 02/22/23 01:22 CBC 02/22/23 Range/Units 01:22 WBC 14.3 H (3.8-10.6) k/uL RBC 2.38 L (4.30-5.90) m/uL Hgb 8.5 L (13.0-17.5) gm/dL Hct 25.2 L (39.0-53.0) % Plt Count 268 (150-450) k/uL Comprehensive Metabolic Panel 02/22/23 Range/Units 01:22 Sodium 139 (137-145) mmol/L Potassium 4.0 (3.5-5.1) mmol/L Chloride 113 H (98-107) mmol/L Carbon Dioxide 18 L (22-30) mmol/L BUN 25 H (9-20) mg/dL Creatinine 2.04 H (0.66-1.25) mg/dL Glucose 131 H (74-99) mg/dL Calcium 7.8 L (8.4-10.2) mg/dL Current Medications Generic Name Dose Route Start Last Admin Trade Name Freq PRN Reason Stop Dose Admin Hydrocodone Bitart/Acetaminophen 1 each 02/22/23 03:29 02/22/23 09:12 Hydrocodone/Apap 10-325mg 1 Each Tab PO 1 each Q6HR PRN Administration Pain Albuterol/Ipratropium 3 ml 02/22/23 08:31 Ipratropium-Albuterol 3 Ml Neb INHALATION RT-Q2H PRN Shortness Of Breath Or Wheezing Apixaban 5 mg 02/22/23 09:00 02/22/23 08:48 Apixaban 5 Mg Tab PO 5 mg BID@0900,2100 ANDREW Administration Protocol Cholecalciferol 50 mcg 02/22/23 09:00 02/22/23 08:47 Cholecalciferol 25 Mcg (1000 Iu) Tablet PO 50 mcg DAILY ANDREW Administration Cyanocobalamin 1,000 mcg 02/22/23 09:00 02/22/23 08:48 Cyanocobalamin 500 Mcg Tab PO 1,000 mcg DAILY@0900 [facility] Administration Cyclobenzaprine HCl 10 mg 02/22/23 08:31 02/22/23 08:45 Cyclobenzaprine 10 Mg Tab PO 10 mg HS PRN Administration Muscle Spasm Furosemide 40 mg 02/22/23 12:45 Furosemide 10 Mg/Ml 4 Ml Vial IV Q12HR [facility] Isosorbide Mononitrate 30 mg 02/22/23 09:00 02/22/23 08:48 Isosorbide Mononitrate Er 30 Mg Tab.Er.24h PO 30 mg DAILY@0900 [facility] Administration Metoprolol Tartrate 50 mg 02/22/23 21:00 Metoprolol Tartrate 50 Mg Tab PO HS@2100 [facility] Metoprolol Tartrate 100 mg 02/22/23 09:00 02/22/23 08:45 Metoprolol Tartrate 50 Mg Tab PO 100 mg DAILY@0900 [facility] Administration Naloxone HCl 0.2 mg 02/22/23 02:24 Naloxone 0.4 Mg/Ml 1 Ml Vial IV Q2M PRN Opioid Reversal Nitroglycerin 0.4 mg 02/22/23 08:31 Nitroglycerin Sl Tabs 0.4 Mg Tab SUBLINGUAL Q5M PRN Chest Pain Pantoprazole Sodium 40 mg 02/23/23 06:00 Pantoprazole 40 Mg Tablet PO DAILY@0600 [facility] Pravastatin Sodium 20 mg 02/22/23 21:00 Pravastatin Sodium 20 Mg Tab PO HS@2100 [facility] Intake and Output 02/21/23 02/22/23 02/22/23 22:59 06:59 14:59 Other: Voiding Method Indwelling Catheter Indwelling Catheter Weight 93.894 kg 02/22/23 01:22 02/22/23 01:22
[2023-02-22] MEDS: FUROSEMIDE 10 MG/ML 4 ML VIAL IV SCH ×2 (13:42→20:37)
[2023-02-22] MEDS ORDERED: FUROSEMIDE 40 MG TAB PO SCH (14:00)
[2023-02-22 15:09] VITALS: BMI 27.3
--- NOTE | 2023-02-22 16:07 | P.HPIM ---
History of Present Illness H&P Date: 02/22/23 This is a 68-year-old male who presented to the emergency department with chest pain and was currently at [facility] for weakness status post cardiac arrest while hospitalized on last admission. Patient does have an extensive past medical history of severe ischemic cardiomyopathy, pancreatic cancer, atrial fibrillation, chest pain with angina, diabetes mellitus, hyperlipidemia, hypertension, osteoarthritis and follows with Dr. Marco Haque in the outpatient setting. Patient reports he was having chest wall discomfort where they performed CPR and is very tender and sensitive to the touch. Patient's most recent EF is 30% and has had previous stenting of the RCA and cardiology was placed on consult. Chest x-ray shows renomegaly with large right pleural effusion Review Of Systems: Constitutional: No fever, no chills, no night sweats. No weight change. Reports weakness, fatigue. No daytime sleepiness. EENT: No headache. No blurred vision or double vision, no loss of vision. No l oss of Hearing, no ringing in the ears, no dizziness. No nasal drainage or congestion. No epistaxis. No sore throat. Lungs: Reports shortness of breath, no cough, no sputum production. No wheezing . Cardiovascular: Reports severe chest wall pain, no lower extremity edema. No palpitations. No paroxysmal nocturnal dyspnea. No orthopnea. No lightheadedness or dizziness. No syncopal episodes. Abdominal: Reports occasional abdominal pain. No nausea, vomiting. No diarrhea. No constipation. No bloody or tarry stools.. Reports decrease of appetite. Genitourinary: No dysuria, increased frequency, urgency. No urinary retention. Musculoskeletal: No myalgias. No muscle weakness, no gait dysfunction, no frequent falls. No back pain. No neck pain. Integumentary: No wounds, no lesions. No rash or pruritus. No unusual bruising. No change in hair or nails. Neurologic: No aphasia. No facial droop. No change in mentation. No head injury. No headache. No paralysis. No paresthesia. Psychiatric: No depression. No anxiety. No mood swings. Endocrine: No abnormal blood sugars. No weight change. No excessive sweating or thirst. No cold intolerance. PHYSICAL EXAMINATION: GENERAL: The patient is alert and oriented x4, thin built, ill appearing, elderly appearing HEENT: Pupils are round and equally reacting to light. EOMI. no scleral icterus. No conjunctival pallor. Normocephalic, atraumatic. No pharyngeal erythema. No thyromegaly. CARDIOVASCULAR: S1 and S2 muffled PULMONARY: diminished breath sounds bilaterally with no wheezing or rhonchi noted. ABDOMEN: soft. Nontender on exam. obese. non-distended, normoactive bowel sounds. No palpable organomegaly. MUSCULOSKELETAL: No joint swelling or deformity. EXTREMITIES: No cyanosis, clubbing, or pedal edema. NEUROLOGICAL: Gross neurological examination did not reveal any focal deficits. Diffuse weakness SKIN: No rashes. Assessment: Chest pain, most likely musculoskeletal as patient was status post cardiac a rrest with CPR performed on most recent last admission History of pancreatic cancer Chronic kidney disease stage III Leukocytosis, most likely reactive with no evidence of infection, fevers, or pain with urination Elevated BNP of 31,000, acute CHF exacerbation with systolic dysfunction History of permanent atrial fibrillation, currently rate controlled Coronary artery disease history with severe ischemic cardiomyopathy and most recent EF is 30% Gait dysfunction with medical debility Status post cardiac arrest on 02/12/2023 GI prophylaxis DVT prophylaxis Full code Plan: Recommend to continue with current medications and management and currently awaiting cardiology evaluation. Patient did have some noted pleural effusions on x-ray and will start low-dose Lasix and follow up on repeat labs. Patient does have elevated kidney functions which appear stable as patient does have chronic kidney disease Recommend PT/OT therapy evaluation as patient knows and agrees he is too weak to go home as he needs rehab to build strength and mobility prior to going home Case management following looking at other options of ECF as patient does not want to return to [facility]. Patient reports he had horrible care there and does not prefer to go back Home medications reviewed and resumed CODE STATUS to be addressed as patient was no code on previous admission and is currently full code in the chart The impression and plan of care has been dictated by Jasmina Toledo, nurse practitioner as directed. Dr. Alex MD I have performed a history and examination and MDM of this patient, discussed the same with the dictator, and agree with the dictator's assessment and plan as written ,documented as a scribe. Based on total visit time, I have performed more than 50% of the visit. Any additional findings or plans will be noted. Past Medical History Past Medical History: Atrial Fibrillation, Chest Pain / Angina, Diabetes Melli tus, Hyperlipidemia, Hypertension, Musculoskeletal Disorder, Osteoarthritis (OA) Additional Past Medical History / Comment(s): BACK PAIN R/T OLD INJURY. EDEMA FEET/ANKLES. kidney stones, Recent diagnosis of Pancreatic tumor. Patient has not had follow-up with Oncologist yet and was readmitted for increased pain. History of Any Multi-Drug Resistant Organisms: None Reported Past Surgical History: Back Surgery, Heart Catheterization, Heart Catheterization With Stent, Orthopedic Surgery Additional Past Surgical History / Comment(s): R Knee scope; Colonoscopy; Deviated Septum Repair. BACK SURG.X2 PTCA W/ STENTS X2. CARDIOVERSION 03/28/18. ERCP last week with Dr. Morfin out of [facility] with stent placement. Past Anesthesia/Blood Transfusion Reactions: No Reported Reaction Date of Last Stent Placement:: 1997 Past Psychological History: No Psychological Hx Reported Smoking Status: Former smoker Past Alcohol Use History: None Reported Additional Past Alcohol Use History / Comment(s): Patient was a smoker one pack per day for 30 years and quit 30 years ago. He denies any marijuana, street drug or alcohol use. Patient lives alone. Past Drug Use History: None Reported - Past Family History Mother Family Medical History: Dementia, Memory Impairment Additional Family Medical History / Comment(s): Mother in her 80s r/t adv anced dementia. Father Family Medical History: Myocardial Infarction ([place]) Additional Family Medical History / Comment(s): Father from coronary artery disease. Sister(s) Additional Family Medical History / Comment(s): Patient has 3 sisters one past from CVA. One has coronary artery disease with stent in 1 has no major medical problems. Patient is not having any children. Patient does not have any brothe rs. Medications and Allergies Home Medications Medication Instructions Recorded Confirmed Type Apixaban [Eliquis] 5 mg PO BID@0900,2100 03/20/18 02/22/23 History Cyanocobalamin (Vitamin B-12) 1,000 mcg PO DAILY@0900 03/20/18 02/22/23 History [Vitamin B-12] Cyclobenzaprine [Flexeril] 10 mg PO HS PRN 03/20/18 02/22/23 History Isosorbide Mononitrate ER [Imdur] 30 mg PO DAILY@0900 03/20/18 02/22/23 History Nitroglycerin Sl Tabs [Nitrostat] 0.4 mg SUBLINGUAL Q5M PRN 03/20/18 02/22/23 History Pravastatin Sodium [Pravachol] 20 mg PO HS@209912/13/19 02/22/23 History Cholecalciferol [Vitamin D3 (25 50 mcg PO DAILY 10/13/22 02/22/23 History Mcg = 1000 Iu)] Metoprolol Tartrate [Lopressor] 50 mg PO HS@209910/13/22 02/22/23 History Metoprolol Tartrate [Lopressor] 100 mg PO DAILY@0900 10/13/22 02/22/23 History Furosemide [Lasix] 40 mg PO BID@0600,1400 10/20/22 02/22/23 History HYDROcodone/APAP 10-325MG [[place] 1 tab PO Q6HR PRN #4 tab 02/20/23 02/22/23 Rx 10-325] Ipratropium-Albuterol Nebulize 3 ml INHALATION RT-Q2H PRN each 02/20/23 02/22/23 Rx [Duoneb 0.5 mg-3 mg/3 ml Soln] Ipratropium-Albuterol Nebulize 3 ml INHALATION RT-QID each 02/20/23 02/22/23 Rx [Duoneb 0.5 mg-3 mg/3 ml Soln] Insulin Lispro [humaLOG Kwikpen] See Protocol SQ ACHS 02/22/23 02/22/23 History Pantoprazole Sodium [Protonix] 40 mg PO DAILY@0602/22/23 02/22/23 History Pyridoxine [Vitamin B-6] 50 mg PO BID@0900,2100 02/22/23 02/22/23 History Allergies Allergy/AdvReac Type Severity Reaction Status Date / Time morphine Allergy Swelling Verified 02/22/23 06:49 Physical Exam Vitals: Vital Signs Temp Pulse Pulse Resp BP BP Pulse Ox 02/22/23 07:45 97.7 F 66 19 164/76 98 02/22/23 03:54 97.9 F 70 18 127/61 97 02/22/23 03:35 78 16 133/79 99 02/22/23 02:12 78 16 133/85 99 02/22/23 01:10 97.8 F 94 18 135/109 94 L Intake and Output 02/21/23 02/22/23 02/22/23 22:59 06:59 14:59 Other: Voiding Method Indwelling Catheter Indwelling Catheter Weight 93.894 kg Results CBC & Chem 7: 02/22/23 01:22 02/22/23 01:22 Labs: Abnormal Lab Results - Last 24 Hours (Table) 02/22/23 02/22/23 Range/Units 01:22 01:22 WBC 14.3 H (3.8-10.6) k/uL RBC 2.38 L (4.30-5.90) m/uL Hgb 8.5 L (13.0-17.5) gm/dL Hct 25.2 L (39.0-53.0) % MCV 105.9 H (80.0-100.0) fL MCH 35.7 H (25.0-35.0) pg RDW 19.6 H (11.5-15.5) % Neutrophils # 11.9 H (1.3-7.7) k/uL Macrocytosis Marked A Chloride 113 H (98-107) mmol/L Carbon Dioxide 18 L (22-30) mmol/L BUN 25 H (9-20) mg/dL Creatinine 2.04 H (0.66-1.25) mg/dL Glucose 131 H (74-99) mg/dL Calcium 7.8 L (8.4-10.2) mg/dL Thrombosis Risk Factor Assmnt - DVT/VTE Prophylaxis DVT/VTE Prophylaxis: Pharmacologic Prophylaxis ordered - Choose All That Apply Any of the Below Risk Factors Present?: Yes Each Factor Represents 1 point: Obesity (BMI >25) Each Risk Factor Represents 2 Points: Age 61-74 years Thrombosis Risk Factor Assessment Total Risk Factor Score: 3 Thrombosis Risk Factor Assessment Level: Moderate Risk Assessment and Plan Time with Patient: Greater than 30
[2023-02-22] MEDS ORDERED: PRAVASTATIN SODIUM 20 MG TAB PO SCH (21:00)
[2023-02-22] MEDS ORDERED: METOPROLOL TARTRATE 50 MG TAB PO SCH (21:00)
[2023-02-22 21:11] LABS: Glucose,Whole Blood 141 mg/dL (70-110)
[2023-02-22 21:58] LABS: Magnesium 1.3 mg/dL (1.6-2.3); Potassium 3.7 mmol/L (3.5-5.1)
[2023-02-22] MEDS ORDERED: Magnesium Replacement Protocol 1 EACH MISC MISCELLANE PRN ×2 (22:01→22:52)
[2023-02-22] MEDS: MAGNESIUM SULFATE-D5W PMX 1 GM in DEXTROSE/WATER 1 100ML.BAG IVPB SCH (23:25)
[2023-02-23] MEDS: MAGNESIUM SULFATE-D5W PMX 1 GM in DEXTROSE/WATER 1 100ML.BAG IVPB SCH ×3 (00:30→02:38)
[2023-02-23] MEDS: HYDROcodone/APAP 10-325MG 1 EACH TAB PO PRN ×3 (01:28→14:26)
[2023-02-23] MEDS: CYCLOBENZAPRINE 10 MG TAB PO PRN (03:58)
[2023-02-23] MEDS ORDERED: PANTOPRAZOLE 40 MG TABLET PO SCH (06:00)
[2023-02-23 06:44] LABS: Glucose,Whole Blood 140 mg/dL (70-110)
[2023-02-23] MEDS: APIXABAN 5 MG TAB PO SCH (08:51)
[2023-02-23] MEDS: CYANOCOBALAMIN 500 MCG TAB PO SCH (08:52)
[2023-02-23] MEDS: METOPROLOL TARTRATE 50 MG TAB PO SCH (08:52)
[2023-02-23] MEDS: ISOSORBIDE MONONITRATE ER 30 MG TAB.ER.24H PO SCH (08:52)
[2023-02-23] MEDS: FUROSEMIDE 10 MG/ML 4 ML VIAL IV SCH (08:52)
[2023-02-23] MEDS: CHOLECALCIFEROL 25 MCG (1000 IU) TABLET PO SCH (08:52)
[2023-02-23] MEDS ORDERED: Magnesium Replacement Protocol 1 EACH MISC MISCELLANE PRN (09:45)
[2023-02-23] MEDS ORDERED: MAGNESIUM SULFATE-D5W PMX 1 GM in DEXTROSE/WATER 1 100ML.BAG IVPB SCH (10:00)
[2023-02-23 11:05] LABS: HCT 25.3 % (39.6-50.0); HGB 8.3 g/dL (13.0-17.0); MCH 35.5 pg (27.0-32.0); MCHC 32.8 g/dL (32.0-37.0); MCV 108.1 fL (80.0-97.0); Mean Platelet Volume 10.4 fL (9.5-12.2); NRBC Per 100 WBC 0 /100 WBCS (0.0-0.0); Platelet Count 234 X 10*3/uL (140-440); RBC 2.34 X 10*6/uL (4.40-5.60); RDW 20.3 % (11.5-14.5); WBC 11.64 X 10*3/uL (4.50-10.00)
[2023-02-23 11:15] LABS: African American GFR (CKD) 41.1 (60.0-200.0); Anion Gap 9.1 mmol/L (10.00-18.00); BUN/Creat Ratio 11.42 Ratio (12.00-20.00); Blood Urea Nitrogen 21.7 mg/dL (9.0-27.0); Carbon Dioxide 23.9 mmol/L (20.0-27.5); Magnesium 1.9 mg/dL (1.5-2.4); Non-African American GFR(CKD) 35.4 (60.0-200.0); Potassium 3.7 mmol/L (3.5-5.5)
[2023-02-23 11:32] LABS: Glucose,Whole Blood 136 mg/dL (70-110)
[2023-02-23 14:03] VITALS: BP 122/76; PULSE 67; RESP 16; TEMP 97.8
[2023-02-23] MEDS ORDERED: FUROSEMIDE 10 MG/ML 4 ML VIAL IV STA (14:24)
--- NOTE | 2023-02-23 14:27 | P.DS ---
Providers Date of admission: 02/22/23 02:25 Expected date of discharge: 02/23/23 Attending physician: Simon Braun Consults: 02/22/23 12:45 Consult Physician Routine Consulting Provider: Nicol Bernal Consult Reason/Comments: CHF, Chest pain Do you want consulting provider notified?: Yes Primary care physician: Marco Haque [facility] Course: Final diagnosis Chest pain, most likely musculoskeletal as patient was status post cardiac arrest with CPR performed on most recent last admission History of pancreatic cancer Chronic kidney disease stage III Leukocytosis, most likely reactive with no evidence of infection, fevers, or pain with urination Elevated BNP of 31,000, acute CHF exacerbation with systolic dysfunction History of permanent atrial fibrillation, currently rate controlled Coronary artery disease history with severe ischemic cardiomyopathy and most recent EF is 30% Gait dysfunction with medical debility Status post cardiac arrest on 02/12/2023 GI prophylaxis DVT prophylaxis No code Discharge disposition Patient is being discharged in a stable condition with guarded prognosis to [facility]. Patient will follow-up with Dr. Marco Haque in the outpatient setting upon discharge. Patient is to continue with oral Lasix 40 mg twice daily and recommend repeat labs of BMP and magnesium and follow-up with cardiology as scheduled. Total time taken is greater than 35 minutes. Hospital course This is a 68-year-old male who was recently admitted with chest pain most likely chest wall pain as patient did have cardiac arrest on 02/12/2023 with return of spontaneous circulation. Patient with prolonged hospitalization requiring mechanical ventilation developed severe weakness. Patient was at [facility] and did not appreciate the care he was receiving their impact to stuff up and called EMS to bring him to the hospital. Patient was evaluated by cardiology maintained on diuretics as BNP was elevated. Patient is diuresing well and recommend repeat BMP and magnesium in the outpatient setting. Magnesium was also found to be 1.4 and replaced and currently 1.9. Patient is afebrile continues to report chest wall pain denies worsening shortness of breath. Patient does have lower extremity edema and encouraged compression stockings or Dinesh wraps and elevated while at rest. Recommend follow-up labs in the next 2-3 days to monitor kidney functions. Patient does have chronic kidney disease and current creatinine is improved at 1.9. Recommend Accu-Cheks before meals and at bedtime and will continue sliding scale and heart healthy consistent carb diet. Currently no reports of chest pain, shortness of breath, or palpitations. Patient is afebrile. No reports of nausea or vomiting and patient is tolerating diet. Patient will be going to [facility] today. Guarded prognosis Physical exam: Gen: This is a 68-year-old male who is awake, alert and oriented 3, elderly appearing, ill appearing HEENT: Head is atraumatic, normocephalic. Pupils equal, round. Sclerae is anicteric. NECK: Supple. No JVD. No lymphadenopathy. No thyromegaly. LUNGS: Clear to auscultation. No wheezes or rhonchi. Poor inspiration due to chest wall pain. No intercostal retractions. HEART: Regular rate and rhythm. No murmur. ABDOMEN: Soft. Bowel sounds are present. No masses. No tenderness. EXTREMITIES: No pedal edema. No calf tenderness. Bilateral lower extremities with 1+ pitting edema noted NEUROLOGICAL: Patient is awake, alert and oriented x3. Cranial nerves 2 through 12 are grossly intact. Please refer to medication reconciliation sheet for a list of medications. The impression and plan of care has been dictated by Jasmina Toledo, Nurse Practitioner as directed. Dr. Alex MD I have performed a history and examination and MDM of this patient, discussed the same with the dictator, and agree with the dictator's assessment and plan as written ,documented as a scribe. Based on total visit time, I have performed more than 50% of the visit. Patient Condition at Discharge: Fair Plan - Discharge Summary Discharge Rx Participant: Yes New Discharge Prescriptions: Continue Nitroglycerin Sl Tabs [Nitrostat] 0.4 mg SUBLINGUAL Q5M PRN PRN Reason: Chest Pain Cyclobenzaprine [Flexeril] 10 mg PO HS PRN PRN Reason: Muscle Spasm Isosorbide Mononitrate ER [Imdur] 30 mg PO DAILY@0900 Apixaban [Eliquis] 5 mg PO BID@0900,2100 Cyanocobalamin (Vitamin B-12) [Vitamin B-12] 1,000 mcg PO DAILY@0900 Pravastatin Sodium [Pravachol] 20 mg PO HS@2100 Metoprolol Tartrate [Lopressor] 50 mg PO HS@2100 Metoprolol Tartrate [Lopressor] 100 mg PO DAILY@0900 Furosemide [Lasix] 40 mg PO BID@0600,1400 Pyridoxine [Vitamin B-6] 50 mg PO BID@899,2099 HYDROcodone/APAP 10-325MG [[place] 10-325] 1 tab PO Q6HR PRN #4 tab PRN Reason: Pain Cholecalciferol [Vitamin D3 (25 Mcg = 1000 Iu)] 50 mcg PO DAILY Ipratropium-Albuterol Nebulize [Duoneb 0.5 mg-3 mg/3 ml Soln] 3 ml INHALATION RT-QID each Ipratropium-Albuterol Nebulize [Duoneb 0.5 mg-3 mg/3 ml Soln] 3 ml INHALATION RT-Q2H PRN each PRN Reason: Shortness Of Breath Or Wheezing Pantoprazole Sodium [Protonix] 40 mg PO DAILY@0600 Insulin Lispro [humaLOG Kwikpen] See Protocol SQ ACHS Discharge Medication List Apixaban [Eliquis] 5 mg PO BID@0900,209903/20/18 [History] Cyanocobalamin (Vitamin B-12) [Vitamin B-12] 1,000 mcg PO DAILY@89903/20/18 [History] Cyclobenzaprine [Flexeril] 10 mg PO HS PRN 03/20/18 [History] Isosorbide Mononitrate ER [Imdur] 30 mg PO DAILY@89903/20/18 [History] Nitroglycerin Sl Tabs [Nitrostat] 0.4 mg SUBLINGUAL Q5M PRN 03/20/18 [History] Pravastatin Sodium [Pravachol] 20 mg PO HS@209912/13/19 [History] Cholecalciferol [Vitamin D3 (25 Mcg = 1000 Iu)] 50 mcg PO DAILY 10/13/22 [History] Metoprolol Tartrate [Lopressor] 50 mg PO HS@209910/13/22 [History] Metoprolol Tartrate [Lopressor] 100 mg PO DAILY@0910/13/22 [History] Furosemide [Lasix] 40 mg PO BID@0600,1400 10/20/22 [History] Ipratropium-Albuterol Nebulize [Duoneb 0.5 mg-3 mg/3 ml Soln] 3 ml INHALATION RT-Q2H PRN each 02/20/23 [Rx] Ipratropium-Albuterol Nebulize [Duoneb 0.5 mg-3 mg/3 ml Soln] 3 ml INHALATION RT-QID each 02/20/23 [Rx] Insulin Lispro [humaLOG Kwikpen] See Protocol SQ ACHS 02/22/23 [History] Pantoprazole Sodium [Protonix] 40 mg PO DAILY@0600 02/22/23 [History] Pyridoxine [Vitamin B-6] 50 mg PO BID@0900,2100 02/22/23 [History] HYDROcodone/APAP 10-325MG [[place] 10-325] 1 tab PO Q6HR PRN #4 tab 02/23/23 [Rx] Follow up Appointment(s)/Referral(s): Aguilar Stanley, [NON-STAFF] - As Needed Marco Haque MD [Primary Care Provider] - 1-2 days Activity/Diet/Wound Care/Special Instructions: Patient is going to [facility] Activity as tolerated Follow-up with primary care provider on discharge Follow-up with cardiology outpatient Continue taking medications as prescribed Continue to monitor Accu-Cheks before meals and at bedtime NovoLog sliding scale 0-150 equals 0 units 151-200 equals 2 units 201-250 equals 4 units 251-300 equals 6 units 301-350 equals 8 units 351-400 equals 10 units Please notify provider if blood sugar is 400 or above Continue heart healthy diabetic diet Recommend repeat BMP and magnesium in 2-3 days Discharge Disposition: TRANSFER TO SNF/ECF
== END 2023-02-23 16:00 | DRG 291 ==
LOC: EC 00:59 → 4SSUR 02:25
PROVIDERS: ADMIT Hospitalist; ATTEND Hospitalist
DX: I13.0 Hypertensive heart and chronic kidney disease with heart failure and stage 1 through stage 4 chronic kidney disease, or unspecified chronic kidney disease (principal); I50.23 Acute on chronic systolic (congestive) heart failure; C25.9 Malignant neoplasm of pancreas, unspecified; I48.21 Permanent atrial fibrillation; G89.18 Other acute postprocedural pain; R07.89 Other chest pain; I25.5 Ischemic cardiomyopathy; R26.9 Unspecified abnormalities of gait and mobility; E11.22 Type 2 diabetes mellitus with diabetic chronic kidney disease; N18.30 Chronic kidney disease, stage 3 unspecified; R53.81 Other malaise; D72.829 Elevated white blood cell count, unspecified; I25.10 Atherosclerotic heart disease of native coronary artery without angina pectoris; Z86.74 Personal history of sudden cardiac arrest; Z79.01 Long term (current) use of anticoagulants; Z79.4 Long term (current) use of insulin; Z79.899 Other long term (current) drug therapy; Z82.49 Family history of ischemic heart disease and other diseases of the circulatory system; Z87.442 Personal history of urinary calculi; Z87.891 Personal history of nicotine dependence; Z95.5 Presence of coronary angioplasty implant and graft; Z88.5 Allergy status to narcotic agent
CPT/HCPCS: 36415; 71046; 80048; 80051; 83735; 83880; 84484; 85025; 85027; 93005

== ENCOUNTER → 2023-05-20 | Outpatient (CLI) | payer MEDICARE, OTHER ==
--- NOTE | 2023-05-22 23:01 | PE ---
EXAMINATION TYPE: PET CT fusion skull to thigh DATE OF EXAM: 05/20/2023 COMPARISON: 02/01/2023 Prior PET/CT: 10/28/2022 HISTORY: Pancreatic cancer TECHNIQUE: Following the intravenous administration of 11.35 mCi of F-18 FDG, whole body images are performed from the skull base to the midthigh. Images are reviewed on the computer in the coronal, a xial, and sagittal planes. Reconstructed rotating images are created on independent workstation and reviewed on the computer. A localization and attenuation correction CT is performed in conjunction with the PET scan. DLP: 429.03 mGycm SCAN: Initial Blood glucose: 78 mg/dL Average Mediastinum SUV: 1.23 Average Liver SUV: 1.9 times FINDINGS: NECK: No abnormal uptake THORAX: No abnormal uptake ABDOMEN: There is intense uptake at the head of the pancreas with an SUV of 4.4 compatible with neopl asm. This is slightly diminished from 4.94 SUV previous. Area of intensity appears diminished in size . PELVIS: No abnormal uptake OSSEOUS STRUCTURES: No abnormal uptake LOCALIZATION CT: Note is made of gallstones IMPRESSION: 1. Intense uptake within the head of the pancreas compatible with patient's reported primary neoplasm . This has slight improvement of SUV and diminished size compared to prior PET/CT. 2. No areas suspicious for metastatic disease evident.
== END | disposition home or self-care (01) ==
LOC: RADPETMAIN 10:06
PROVIDERS: ATTEND Internal Medicine Hematology & Oncology
DX: C25.9 Malignant neoplasm of pancreas, unspecified (principal)
CPT/HCPCS: 78815; A9552

== ENCOUNTER 2023-08-25 13:53 | Inpatient (IN) | payer MEDICARE, OTHER ==
[2023-08-25] MEDS ORDERED: SODIUM CHLORIDE 0.9% 1,000 ML IV STA (14:24)
--- NOTE | 2023-08-25 14:25 | ED ---
Weakness HPI - General Chief complaint: Fall Stated complaint: Weakness Time Seen by Provider: 08/25/23 14:23 Source: EMS, RN notes reviewed, old records reviewed Mode of arrival: EMS Limitations: no limitations - History of Present Illness Initial comments: This is a 68-year-old male to the emergency department for evaluation today. Patient is presents today for evaluation regards to not feeling well with the fall. Patient fall also resulted debilitating weakness 3 was unable to ambulate get up off the floor and call for help. Patient was finally able to get a hold of someone to help. Patient admits to pancreatic cancer on chemotherapy MD Complaint: generalized weakness, focal weakness, lack of energy, difficulty walking -: days(s) Location: generalized Severity: severe Severity scale (1-10): 10 Quality: constant Consistency: constant Improves with: none Worsens with: none Associated Symptoms: nausea/vomiting - Related Data Home Medications Medication Instructions Recorded Confirmed Apixaban [Eliquis] 5 mg PO BID 03/20/18 08/25/23 Cyanocobalamin (Vitamin B-12) 1,000 mcg PO DAILY 03/20/18 08/25/23 [Vitamin B-12] Cyclobenzaprine [Flexeril] 10 mg PO HS PRN 03/20/18 08/25/23 Isosorbide Mononitrate ER [Imdur] 30 mg PO DAILY 03/20/18 08/25/23 Nitroglycerin Sl Tabs [Nitrostat] 0.4 mg SUBLINGUAL Q5M PRN 03/20/18 08/25/23 Pravastatin Sodium [Pravachol] 20 mg PO HS 12/13/19 08/25/23 Cholecalciferol [Vitamin D3 (25 50 mcg PO DAILY 10/13/22 08/25/23 Mcg = 1000 Iu)] Furosemide [Lasix] 40 mg PO DAILY 10/20/22 08/25/23 Diphenoxylate HCl/Atropine 2 tab PO QID PRN 07/10/23 08/25/23 [Lomotil 2.5-0.025 mg Tablet] Insulin Degludec [Tresiba 10 units SQ DAILY 07/10/23 08/25/23 Flextouch U-100 Pen] allopurinoL [Zyloprim] 100 mg PO DAILY 07/10/23 08/25/23 HYDROcodone/APAP 7.5-325MG [[place] 1 - 2 tab PO Q6H PRN 08/25/23 08/25/23 7.5-325] Previous Rx's Medication Instructions Recorded Acetaminophen Tab [Tylenol] 650 mg PO Q6HR PRN tab 07/14/23 Metoprolol Tartrate [Lopressor] 100 mg PO BID 30 Days #120 tab 07/14/23 Midodrine [ProAmatine] 5 mg PO AC-BID 30 Days #60 tab 07/14/23 Tamsulosin [Flomax] 0.4 mg PO PC-BRKFST #30 cap 07/14/23 Allergies Allergy/AdvReac Type Severity Reaction Status Date / Time morphine Allergy Swelling Verified 08/25/23 16:42 Review of Systems ROS Statement: Those systems with pertinent positive or pertinent negative responses have been documented in the HPI. ROS Other: All systems not noted in ROS Statement are negative. Past Medical History Past Medical History: Atrial Fibrillation, Cancer, Chest Pain / Angina, Diabetes Mellitus, Hyperlipidemia, Hypertension, Musculoskeletal Disorder, Osteo arthritis (OA) Additional Past Medical History / Comment(s): BACK PAIN R/T OLD INJURY. kidney stones, Recent diagnosis of Pancreatic tumor. History of Any Multi-Drug Resistant Organisms: None Reported Past Surgical History: Back Surgery, Heart Catheterization, Heart Catheterization With Stent, Orthopedic Surgery Additional Past Surgical History / Comment(s): R Knee scope; Colonoscopy; Deviated Septum Repair. BACK SURG.X2 PTCA W/ STENTS X2. CARDIOVERSION 03/28/18. ERCP last week with Dr. Morfin out of [facility] with stent placement. Past Anesthesia/Blood Transfusion Reactions: No Reported Reaction Date of Last Stent Placement:: 1997 Past Psychological History: No Psychological Hx Reported Smoking Status: Former smoker - Past Family History Mother Family Medical History: Dementia, Memory Impairment Additional Family Medical History / Comment(s): Mother in her 80s r/t advanced dementia. Father Family Medical History: Myocardial Infarction (HI) Additional Family Medical History / Comment(s): Father from coronary artery disease. Sister(s) Additional Family Medical History / Comment(s): Patient has 3 sisters one past from CVA. One has coronary artery disease with stent in 1 has no major medical problems. Patient is not having any children. Patient does not have any brothers. General Exam General appearance: alert, in no apparent distress, anxious Head exam: Present: atraumatic, normocephalic, normal inspection Eye exam: Present: normal appearance, PERRL, EOMI. Absent: scleral icterus, conjunctival injection, periorbital swelling ENT exam: Present: normal exam, mucous membranes moist Neck exam: Present: normal inspection. Absent: tenderness, meningismus, lymphadenopathy Respiratory exam: Present: normal lung sounds bilaterally. Absent: respiratory distress, wheezes, rales, rhonchi, stridor Cardiovascular Exam: Present: regular rate, normal rhythm, normal heart sounds. Absent: systolic murmur, diastolic murmur, rubs, gallop, clicks GI/Abdominal exam: Present: soft, normal bowel sounds. Absent: distended, tenderness, guarding, rebound, rigid Extremities exam: Present: normal inspection, full ROM, normal capillary refill. Absent: tenderness, pedal edema, joint swelling, calf tenderness Back exam: Present: normal inspection Neurological exam: Present: alert, oriented X3, CN II-XII intact Psychiatric exam: Present: normal affect, normal mood Skin exam: Present: warm, dry, intact, normal color. Absent: rash Course Vital Signs 08/25/23 08/25/23 08/25/23 13:56 14:01 15:00 Temperature 96.8 F L Pulse Rate 65 Respiratory 20 Rate Blood Pressure 107/62 101/65 O2 Sat by Pulse 97 94 L 94 L Oximetry 08/25/23 08/25/23 08/25/23 16:00 17:00 17:58 Temperature Pulse Rate 78 92 Respiratory 18 18 20 Rate Blood Pressure 100/68 99/63 97/59 O2 Sat by Pulse 95 94 L 99 Oximetry - Reevaluation(s) Reevaluation #1: 08/25/23 21:16 Medical record is reviewed Reevaluation #2: 08/25/23 21:16 Patient is in symptoms are unchanged Reevaluation #3: 08/25/23 21:16 Patient informed results questions answered Reevaluation #4: 08/25/23 21:16 Was pt. sent in by a medical professional or institution (, PA, BOTTOMER OPERATOR, urgent care, hospital, or alf...) When possible be specific @ -no Did you speak to anyone other than the patient for history (EMS, parent, family, police, friend...)? What history was obtained from this source @ -no Did you review nursing and triage notes (agree or disagree)? Why? @ -agree Are old charts reviewed (outside hosp., previous admission, EMS record, old EKG, old radiological studies, urgent care reports/EKG's, alf records)? Report findings @ -yes Differential Diagnosis (chest pain, altered mental status, abdominal pain women, abdominal pain men, vaginal bleeding, weakness, fever, dyspnea, syncope, headache, dizziness, GI bleed, back pain, seizure, CVA, palpatations, mental health, musculoskeletal)? @ -prior EKG interpreted by me (3pts min.). @ -no X-rays interpreted by me (1pt min.). @ -yes CT interpreted by me (1pt min.). @ -yes U/S interpreted by me (1pt. min.). @ -yes What testing was considered but not performed or refused? (CT, X-rays, U/S, labs)? Why? @ -none What meds were considered but not given or refused? Why? @ -none Did you discuss the management of the patient with other professionals (professionals i.e. , PA, BOTTOMER OPERATOR, lab, RT, psych nurse, high school social studies tutor, burr mill operator, teacher, planned giving officer, protective services case worker)? Give summary @ -no Was smoking cessation discussed for >3mins.? @ -no Was critical care preformed (if so, how long)? @ -no Were there social determinants of health that impacted care today? How? (Homelessness, low income, unemployed, alcoholism, drug addiction, transportation, low edu. Level, literacy, decrease access to med. care, nursing home, rehab)? @ -none Was there de-escalation of care discussed even if they declined (Discuss DNR or withdrawal of care, Hospice)? DNR status @ -no What co-morbidities impacted this encounter? (DM, HTN, Smoking, COPD, CAD, Cancer, CVA, ARF, Chemo, Hep., AIDS, mental health diagnosis, sleep apnea, morbid obesity)? @ -none Was patient admitted / discharged? Hospital course, mention meds given and route, prescriptions, significant lab abnormalities, going to OR and other pertinent info. @ - 68 male to the emergency room today for evaluation today. Patient presents today for evaluation regards to severe weakness with significant pancytopenia chemotherapy related with pancreatic cancer. Patient will be admitted for oncology to see as well as transfusion Admitted Undiagnosed new problem with uncertain prognosis? @ -no Drug Therapy requiring intensive monitoring for toxicity (Heparin, Nitro, Insulin, Cardizem)? @ -no Were any procedures done? @ -no Diagnosis/symptom? @ -Pancytopenia and symptomatic anemia Acute, or Chronic, or Acute on Chronic? @ -Acute Uncomplicated (without systemic symptoms) or Complicated (systemic symptoms)? @ -Complicated Side effects of treatment? @ -no Exacerbation, Progression, or Severe Exacerbation? @ -exacerbation Poses a threat to life or bodily function? How? (Chest pain, USA, HI, pneumonia, PE, COPD, DKA, ARF, appy, cholecystitis, CVA, Diverticulitis, Homicidal, Suicidal, threat to staff... and all critical care pts) @ -yes pancytopenia Reevaluation #5: 08/25/23 21:16 Differential Weakness: Hypoglycemia, shock, sepsis, hyponatremia, anemia, infection, HI, ETOH, adverse medicine reaction, overdose, stroke, this is not meant to be an all-inclusive list. - Consultations Consultation #1: Spoke with [facility] were agrees to admit this patient Medical Decision Making - Medical Decision Making 68 male to the emergency room today for evaluation today. Patient Dese for evaluation regards to severe weakness with significant pancytopenia chemotherapy related with pancreatic cancer. Patient will be admitted for oncology to see as well as transfusion - Lab Data Result diagrams: 08/29/23 11:40 08/29/23 08:05 Lab Results 08/25/23 08/25/23 08/25/23 Range/Units 14:47 14:47 14:47 WBC 0.3 L* (3.8-10.6) k/uL RBC 1.79 L (4.30-5.90) m/uL Hgb 6.2 L* D (13.0-17.5) gm/dL Hct 18.7 L* (39.0-53.0) % MCV 104.3 H (80.0-100.0) fL MCH 34.3 (25.0-35.0) pg MCHC 32.9 (31.0-37.0) g/dL RDW 16.9 H (11.5-15.5) % Plt Count 12 L* D (150-450) k/uL MPV 12.6 Neutrophils % 30 % Lymphocytes % 57 % Monocytes % 4 % Eosinophils % 2 % Basophils % 1 % Neutrophils # 0.1 L* (1.3-7.7) k/uL Lymphocytes # 0.2 L (1.0-4.8) k/uL Monocytes # 0.0 (0-1.0) k/uL Eosinophils # 0.0 (0-0.7) k/uL Basophils # 0.0 (0-0.2) k/uL Manual Slide Review Perf Anisocytosis Slight Macrocytosis Moderate PT 26.6 H (10.0-12.5) sec INR 2.7 H (<1.2) APTT 37.7 H (22.0-30.0) sec Sodium 139 (137-145) mmol/L Potassium 4.7 (3.5-5.1) mmol/L Chloride 108 H (98-107) mmol/L Carbon Dioxide 16 L (22-30) mmol/L Anion Gap 15 mmol/L BUN 45 H (9-20) mg/dL Creatinine 2.50 H (0.66-1.25) mg/dL Est GFR (CKD-EPI)AfAm 29 (>60 ml/min/1.73 sqM) Est GFR (CKD-EPI)NonAf 26 (>60 ml/min/1.73 sqM) Glucose 111 H (74-99) mg/dL Lactic Ac Sepsis Rflx Plasma Lactic Acid Magen (0.7-2.0) mmol/L Calcium 8.4 (8.4-10.2) mg/dL Phosphorus 4.1 (2.5-4.5) mg/dL Magnesium 2.0 (1.6-2.3) mg/dL Total Bilirubin 1.4 H (0.2-1.3) mg/dL AST 64 H (17-59) U/L ALT 37 (4-49) U/L Alkaline Phosphatase 91 (38-126) U/L Creatine Kinase (55-170) U/L Troponin I (0.000-0.034) ng/mL Total Protein 6.0 L (6.3-8.2) g/dL Albumin 2.6 L (3.5-5.0) g/dL TSH 0.765 (0.465-4.680) mIU/L 08/25/23 08/25/23 08/25/23 Range/Units 14:47 14:47 15:32 WBC (3.8-10.6) k/uL RBC (4.30-5.90) m/uL Hgb (13.0-17.5) gm/dL Hct (39.0-53.0) % MCV (80.0-100.0) fL MCH (25.0-35.0) pg MCHC (31.0-37.0) g/dL RDW (11.5-15.5) % Plt Count (150-450) k/uL MPV Neutrophils % % Lymphocytes % % Monocytes % % Eosinophils % % Basophils % % Neutrophils # (1.3-7.7) k/uL Lymphocytes # (1.0-4.8) k/uL Monocytes # (0-1.0) k/uL Eosinophils # (0-0.7) k/uL Basophils # (0-0.2) k/uL Manual Slide Review Anisocytosis Macrocytosis PT (10.0-12.5) sec INR (<1.2) APTT (22.0-30.0) sec Sodium (137-145) mmol/L Potassium (3.5-5.1) mmol/L Chloride (98-107) mmol/L Carbon Dioxide (22-30) mmol/L Anion Gap mmol/L BUN (9-20) mg/dL Creatinine (0.66-1.25) mg/dL Est GFR (CKD-EPI)AfAm (>60 ml/min/1.73 sqM) Est GFR (CKD-EPI)NonAf (>60 ml/min/1.73 sqM) Glucose (74-99) mg/dL Lactic Ac Sepsis Rflx Plasma Lactic Acid Magen 3.2 H* (0.7-2.0) mmol/L Calcium (8.4-10.2) mg/dL Phosphorus (2.5-4.5) mg/dL Magnesium (1.6-2.3) mg/dL Total Bilirubin (0.2-1.3) mg/dL AST (17-59) U/L ALT (4-49) U/L Alkaline Phosphatase (38-126) U/L Creatine Kinase 143 (55-170) U/L Troponin I 0.013 (0.000-0.034) ng/mL Total Protein (6.3-8.2) g/dL Albumin (3.5-5.0) g/dL TSH (0.465-4.680) mIU/L 08/25/23 Range/Units 15:33 WBC (3.8-10.6) k/uL RBC (4.30-5.90) m/uL Hgb (13.0-17.5) gm/dL Hct (39.0-53.0) % MCV (80.0-100.0) fL MCH (25.0-35.0) pg MCHC (31.0-37.0) g/dL RDW (11.5-15.5) % Plt Count (150-450) k/uL MPV Neutrophils % % Lymphocytes % % Monocytes % % Eosinophils % % Basophils % % Neutrophils # (1.3-7.7) k/uL Lymphocytes # (1.0-4.8) k/uL Monocytes # (0-1.0) k/uL Eosinophils # (0-0.7) k/uL Basophils # (0-0.2) k/uL Manual Slide Review Anisocytosis Macrocytosis PT (10.0-12.5) sec INR (<1.2) APTT (22.0-30.0) sec Sodium (137-145) mmol/L Potassium (3.5-5.1) mmol/L Chloride (98-107) mmol/L Carbon Dioxide (22-30) mmol/L Anion Gap mmol/L BUN (9-20) mg/dL Creatinine (0.66-1.25) mg/dL Est GFR (CKD-EPI)AfAm (>60 ml/min/1.73 sqM) Est GFR (CKD-EPI)NonAf (>60 ml/min/1.73 sqM) Glucose (74-99) mg/dL Lactic Ac Sepsis Rflx Y Plasma Lactic Acid Magen (0.7-2.0) mmol/L Calcium (8.4-10.2) mg/dL Phosphorus (2.5-4.5) mg/dL Magnesium (1.6-2.3) mg/dL Total Bilirubin (0.2-1.3) mg/dL AST (17-59) U/L ALT (4-49) U/L Alkaline Phosphatase (38-126) U/L Creatine Kinase (55-170) U/L Troponin I (0.000-0.034) ng/mL Total Protein (6.3-8.2) g/dL Albumin (3.5-5.0) g/dL TSH (0.465-4.680) mIU/L - Radiology Data Radiology results: report reviewed (CT brain C-spine chest and pelvis x-ray are negative for traumatic injury), image reviewed Disposition Clinical Impression: Fall, Weakness, Anemia, Thrombocytopenia, Pancytopenia Disposition: ADMITTED IP TO THIS HOSP Condition: Fair Is patient prescribed a controlled substance at d/c from ED?: No Time of Disposition: 17:15
[2023-08-25] MEDS ORDERED: HYDROmorphone 1 MG/ML 1 ML SYRINGE IVP STA ×2 (14:58→17:17)
[2023-08-25 15:15] LABS: Anisocytosis Slight; Basophils % (A) 1 %; Eosinophils % (A) 2 %; Lymphocytes # (A) 0.2 k/uL (1.0-4.8); Lymphocytes % (A) 57 %; MCH 34.3 pg (25.0-35.0); MCHC 32.9 g/dL (31.0-37.0); MCV 104.3 fL (80.0-100.0); Macrocytosis Moderate; Mean Platelet Volume 12.6; Monocytes % (A) 4 %; Neutrophils % (A) 30 %; RBC 1.79 m/uL (4.30-5.90); RDW 16.9 % (11.5-15.5)
[2023-08-25 15:18] LABS: HCT 18.7 % (39.0-53.0); HGB 6.2 gm/dL (13.0-17.5); WBC 0.3 k/uL (3.8-10.6)
[2023-08-25 15:19] LABS: Neutrophils # (A) 0.1 k/uL (1.3-7.7)
[2023-08-25 15:33] LABS: INR 2.7 (<1.2); Partial Thromboplastin Time 37.7 sec (22.0-30.0); Prothrombin Time 26.6 sec (10.0-12.5)
[2023-08-25 15:36] LABS: ALT 37 U/L (4-49); AST 64 U/L (17-59); African American GFR (CKD) 29 (>60 ml/min/1.73 sqM); Albumin 2.6 g/dL (3.5-5.0); Alkaline Phosphatase 91 U/L (38-126); Anion Gap 15 mmol/L; Blood Urea Nitrogen 45 mg/dL (9-20); Calcium 8.4 mg/dL (8.4-10.2); Carbon Dioxide 16 mmol/L (22-30); Chloride 108 mmol/L (98-107); Glucose 111 mg/dL (74-99); Non-African American GFR(CKD) 26 (>60 ml/min/1.73 sqM); Phosphorus 4.1 mg/dL (2.5-4.5); Potassium 4.7 mmol/L (3.5-5.1); Sodium 139 mmol/L (137-145); Total Bilirubin 1.4 mg/dL (0.2-1.3)
--- NOTE | 2023-08-25 15:57 | XR ---
EXAMINATION TYPE: XR chest 1V DATE OF EXAM: 08/25/2023 COMPARISON: 07/10/2023 INDICATION: Fall TECHNIQUE: Single frontal view of the chest is obtained. FINDINGS: The heart size is normal. The pulmonary vasculature is normal. The lungs are clear. No pneumothorax is evident. Port is present on the right with the tip in the superior vena cava region. IMPRESSION: 1. No acute pulmonary process.
[2023-08-25 15:58] LABS: Platelet Count 12 k/uL (150-450)
--- NOTE | 2023-08-25 15:58 | XR ---
EXAMINATION TYPE: XR pelvis AP view DATE OF EXAM: 08/25/2023 COMPARISON: None HISTORY: Fall, pain TECHNIQUE: AP pelvis FINDINGS: Femoral heads articulate with the acetabulum. Joint space narrowing is present. Symphysis p ubis and sacroiliac joints are patent. Sacroiliac joints may have mild degenerative change. Normal mynor wel gas is present. No acute fractures are evident. IMPRESSION: 1. No acute osseous abnormality. Pelvis
--- NOTE | 2023-08-25 16:02 | CT ---
EXAMINATION TYPE: CT brain fritz tejeda DATE OF EXAM: 08/25/2023 COMPARISON: None HISTORY: 68-year-old male pain after fall CT DLP: 1927.6 mGycm Automated exposure control for dose reduction was used. Technique: Examination of the head was done in axial plane without intravenous contrast. Coronal and sagittal reconstructions performed. CT of the cervical spine was obtained in axial plane without intravenous injection of contrast mater ial. Coronal and sagittal reformatted images were obtained from the axial views for evaluation of f ractures, spinal alignment and canal. FINDINGS: Head: There is no evidence of acute intracranial hemorrhage, acute ischemic changes, mass, mass-effect, or extra-axial fluid collection. There is no effacement of cerebral sulci or basal subarachnoid cister ns. There is no hydrocephalus. There is no midline shift. Leija-white matter distinction is preserv ed. There is tupa-rv-szzwbeeg volume loss overlying the bilateral cerebral convexities. Several lacunar i nfarcts subinsular region on the right. Mild lobulated mucosal thickening floors of the maxillary sinuses. Additional scattered mild mucosal thickening ethmoid air cells and sphenoid sinuses. Mastoid air cells well pneumatized. Orbits and gavi bes appear intact. Cervical spine: Cerumen left external auditory canal. Right subclavian CVC noted. Mild emphysematous change in the visualized upper lungs. There is moderate disc/endplate degenerative change particularly C5-C7 levels. Disc osteophyte comple xes contribute to mild spinal canal stenoses at C5-C6 and moderate at C6-C7. Alignment is maintained. Hypertrophic facet arthropathy especially upper and mid cervical spine on the right. No acute fracture of the cervical spine. No craniocervical junction abnormality, predental space widening, or prevertebral soft tissue swellin g. Moderate bilateral neural foraminal stenosis at C5-C6 and severe on both sides at C6-C7. Sagittal and coronal reformatted images confirm above findings. COMBINED IMPRESSION: 1. Mild cerebral cortical atrophy. Old lacunar infarct right basal ganglia. No acute intracranial abn ormality seen. 2. No acute fracture or malalignment of the cervical spine. Moderate spondylotic changes especially C 5-C7 levels. Severe bilateral neuroforaminal stenosis C6/C7. Moderate spinal canal stenosis at this l evel.
[2023-08-25] MEDS ORDERED: ONDANSETRON 4 MG/2 ML VIAL IVP PRN (17:15)
[2023-08-25] MEDS ORDERED: NALOXONE 0.4 MG/ML 1 ML VIAL IV PRN (17:15)
[2023-08-25] MEDS: SODIUM CHLORIDE 0.9% 1,000 ML IV SCH (17:32)
[2023-08-25] MEDS ORDERED: NITROGLYCERIN SL TABS 0.4 MG TAB SUBLINGUAL PRN (20:53)
[2023-08-25] MEDS ORDERED: DIPHENOX-ATROP 2.5-0.025 MG 1 EACH TAB PO PRN (20:53)
--- NOTE | 2023-08-25 21:54 | US ---
EXAMINATION TYPE: US venous doppler duplex LE LT DATE OF EXAM: 08/25/2023 9:40 PM COMPARISON: NONE CLINICAL INDICATION: Male, 68 years old with history of Swelling; edema lt leg SIDE PERFORMED: Left TECHNIQUE: The lower extremity deep venous system is examined utilizing real time linear array sonog eva with graded compression, doppler sonography and color-flow sonography. VESSELS IMAGED: Common Femoral Vein Deep Femoral Vein Greater Saphenous Vein * Femoral Vein Popliteal Vein Small Saphenous Vein * Proximal Calf Veins (* superficial vessels) Left Leg: Negative for DVT IMPRESSION: Grayscale, color doppler, spectral doppler imaging performed of the deep veins of the lo wer extremities. There is normal flow, compressibility, vascular waveforms.
[2023-08-25] MEDS: PRAVASTATIN SODIUM 20 MG TAB PO SCH (22:10)
[2023-08-25] MEDS: MIDODRINE 5 MG TAB PO SCH (22:10)
[2023-08-25] MEDS: METOPROLOL TARTRATE 25 MG TAB PO SCH (22:10)
--- NOTE | 2023-08-26 00:05 | P.HPIM ---
History of Present Illness H&P Date: 08/25/23 Chief Complaint: Weakness Patient is a 68-year-old male with a known history of pancreatic cancer currently on chemotherapy last dose about a week ago, hypertension, hyperlipi demia, diabetes type 2, atrial fibrillation on anticoagulation with Eliquis, coronary artery disease history of stent placement and prior history of smoking was brought to the hospital by EMS. Patient states that last night around 2 AM he was trying to sit in the chair but slipped onto the floor. He tried to get up but the chair slid away. Patient was unable to get up from the floor and called for help. Patient crawled upstairs and injured his left foot/toe while going up. Finally he was able to get hold of someone to help this morning. Patient has been having generalized weakness. Denies any headache or dizziness. Denies any hitting head his head. No complaints of chest pain or shortness of breath. Patient does have left lower swelling on and off for the past few months. No nausea vomiting or abdominal pain or diarrhea. No fever no chills. Chest x-ray showed no acute pulmonary process. CT head and cervical spine showed mild cerebral atrophy. Old lacunar infarct right basal ganglia. No acute intracranial abnormality seen. No acute fracture or malalignment of the cervical spine. Moderate spondylitic changes especially C5-C7 levels. Severe bilateral neuroforaminal stenosis C6- C7. Moderate spinal canal stenosis at this level. Pelvic x-ray showed no acute osseous abnormality of the pelvis. Laboratory data showed WBC 0.3, hemoglobin 6.2, MCV 104.3 and platelets 12 INR 2.7, BUN 45 and creatinine 2.5, bicarb is 16, blood sugar is 111, lactic acid 3.2, total bilirubin level is 1.4 AST 64 ALT 37 alk phos 91, CK1 43, troponin 0.013, albumin 2.6 and TSH level is 0.765. Review of Systems Constitutional: Patient denies any fever or chills . Patient does have generalized weakness and fatigue. Abdomen: Patient denied any nausea or vomiting. Patient does have abd. pain. No abdominal pain. Cardiovascular: Patient denies any chest pain or short of breath no palpitations. Respiratory: patient denied any cough . no sputum production. No shortness of breath Neurologic: Patient denied any numbness or tingling headache. Musculoskeletal: Patient denies any complaints of joint swelling or deformity. Skin: Negative Psychiatric: Negative Endocrine: No heat or cold intolerance. No recent weight gain. Genitourinary: No dysuria or hematuria. All other 14 point ROS negative except the above Past Medical History Past Medical History: Atrial Fibrillation, Cancer, Chest Pain / Angina, Diabetes Mellitus, Hyperlipidemia, Hypertension, Musculoskeletal Disorder, Osteoarthritis (OA) Additional Past Medical History / Comment(s): BACK PAIN R/T OLD INJURY. kidney stones, Recent diagnosis of Pancreatic tumor. History of Any Multi-Drug Resistant Organisms: None Reported Past Surgical History: Back Surgery, Heart Catheterization, Heart Catheterization With Stent, Orthopedic Surgery Additional Past Surgical History / Comment(s): R Knee scope; Colonoscopy; Deviated Septum Repair. BACK SURG.X2 PTCA W/ STENTS X2. CARDIOVERSION 03/28/18. ERCP last week with Dr. Morfin out of [facility] with stent placement. Past Anesthesia/Blood Transfusion Reactions: No Reported Reaction Date of Last Stent Placement:: 1997 Past Psychological History: No Psychological Hx Reported Smoking Status: Former smoker - Past Family History Mother Family Medical History: Dementia, Memory Impairment Additional Family Medical History / Comment(s): Mother in her 80s r/t advanced dementia. Father Family Medical History: Myocardial Infarction ([place]) Additional Family Medical History / Comment(s): Father from coronary artery disease. Sister(s) Additional Family Medical History / Comment(s): Patient has 3 sisters one past from CVA. One has coronary artery disease with stent in 1 has no major medical problems. Patient is not having any children. Patient does not have any brothers. Medications and Allergies Home Medications Medication Instructions Recorded Confirmed Type Apixaban [Eliquis] 5 mg PO BID 03/20/18 08/25/23 History Cyanocobalamin (Vitamin B-12) 1,000 mcg PO DAILY 03/20/18 08/25/23 History [Vitamin B-12] Cyclobenzaprine [Flexeril] 10 mg PO HS PRN 03/20/18 08/25/23 History Isosorbide Mononitrate ER [Imdur] 30 mg PO DAILY 03/20/18 08/25/23 History Nitroglycerin Sl Tabs [Nitrostat] 0.4 mg SUBLINGUAL Q5M PRN 03/20/18 08/25/23 History Pravastatin Sodium [Pravachol] 20 mg PO HS 12/13/19 08/25/23 History Cholecalciferol [Vitamin D3 (25 50 mcg PO DAILY 10/13/22 08/25/23 History Mcg = 1000 Iu)] Furosemide [Lasix] 40 mg PO DAILY 10/20/22 08/25/23 History Diphenoxylate HCl/Atropine 2 tab PO QID PRN 07/10/23 08/25/23 History [Lomotil 2.5-0.025 mg Tablet] Insulin Degludec [Tresiba 10 units SQ DAILY 07/10/23 08/25/23 History Flextouch U-100 Pen] allopurinoL [Zyloprim] 100 mg PO DAILY 07/10/23 08/25/23 History Acetaminophen Tab [Tylenol] 650 mg PO Q6HR PRN tab 07/14/23 08/25/23 Rx Metoprolol Tartrate [Lopressor] 100 mg PO BID 30 Days #120 tab 07/14/23 08/25/23 Rx Midodrine [ProAmatine] 5 mg PO AC-BID 30 Days #60 tab 07/14/23 08/25/23 Rx Tamsulosin [Flomax] 0.4 mg PO PC-BRKFST #30 cap 07/14/23 08/25/23 Rx HYDROcodone/APAP 7.5-325MG [[place] 1 - 2 tab PO Q6H PRN 08/25/23 08/25/23 History 7.5-325] Allergies Allergy/AdvReac Type Severity Reaction Status Date / Time morphine Allergy Swelling Verified 08/25/23 16:42 Physical Exam Vitals: Vital Signs Temp Pulse Pulse Resp BP BP Pulse Ox 08/25/23 18:30 97.5 F L 98 18 111/65 100 08/25/23 17:58 92 20 97/59 99 08/25/23 17:00 18 99/63 94 L 08/25/23 16:00 78 18 100/68 95 08/25/23 15:00 101/65 94 L 08/25/23 14:01 94 L 08/25/23 13:56 96.8 F L 65 20 107/62 97 Intake and Output 08/25/23 08/25/23 08/25/23 06:59 14:59 22:59 Other: Weight 73.482 kg PHYSICAL EXAMINATION: Patient is lying in the bed , no acute distress, awake alert and oriented.. HEENT: Normocephalic. Neck is supple. Pupils reactive. Nostrils clear. Oral cavity is moist. Neck reveals no JVD, carotid bruits, or thyromegaly. CHEST EXAMINATION: Trachea is central. Symmetrical expansion. Bibasilar d iminished sounds.. CARDIAC: Normal S1, S2 with no gallops. No murmurs ABDOMEN: Soft. Bowel sounds present. Mild epigastric tenderness. No guarding or rigidity.. No organomegaly. No abdominal bruits. Extremities: Patient does have left lower extremity 2+ swelling. Left great toe wound which is wrapped with gauze. No active bleeding.. No clubbing or cyanosis Neurologically awake, alert, oriented x3 with well-coordinated movements. No gross focal deficits noted Skin: No rash or skin lesions. Psychiatric: Coperative. Nonsuicidal, Musculoskeletal: No joint swelling or deformity. Results CBC & Chem 7: 08/25/23 14:47 08/25/23 14:47 Labs: Abnormal Lab Results - Last 24 Hours (Table) 08/25/23 08/25/23 08/25/23 Range/Units 14:47 14:47 14:47 WBC 0.3 L* (3.8-10.6) k/uL RBC 1.79 L (4.30-5.90) m/uL Hgb 6.2 L* D (13.0-17.5) gm/dL Hct 18.7 L* (39.0-53.0) % MCV 104.3 H (80.0-100.0) fL RDW 16.9 H (11.5-15.5) % Plt Count 12 L* D (150-450) k/uL Neutrophils # 0.1 L* (1.3-7.7) k/uL Lymphocytes # 0.2 L (1.0-4.8) k/uL PT 26.6 H (10.0-12.5) sec INR 2.7 H (<1.2) APTT 37.7 H (22.0-30.0) sec Chloride 108 H (98-107) mmol/L Carbon Dioxide 16 L (22-30) mmol/L BUN 45 H (9-20) mg/dL Creatinine 2.50 H (0.66-1.25) mg/dL Glucose 111 H (74-99) mg/dL Plasma Lactic Acid Magen (0.7-2.0) mmol/L Total Bilirubin 1.4 H (0.2-1.3) mg/dL AST 64 H (17-59) U/L Total Protein 6.0 L (6.3-8.2) g/dL Albumin 2.6 L (3.5-5.0) g/dL Crossmatch 08/25/23 08/25/23 Range/Units 14:47 17:53 WBC (3.8-10.6) k/uL RBC (4.30-5.90) m/uL Hgb (13.0-17.5) gm/dL Hct (39.0-53.0) % MCV (80.0-100.0) fL RDW (11.5-15.5) % Plt Count (150-450) k/uL Neutrophils # (1.3-7.7) k/uL Lymphocytes # (1.0-4.8) k/uL PT (10.0-12.5) sec INR (<1.2) APTT (22.0-30.0) sec Chloride (98-107) mmol/L Carbon Dioxide (22-30) mmol/L BUN (9-20) mg/dL Creatinine (0.66-1.25) mg/dL Glucose (74-99) mg/dL Plasma Lactic Acid Magen 3.2 H* (0.7-2.0) mmol/L Total Bilirubin (0.2-1.3) mg/dL AST (17-59) U/L Total Protein (6.3-8.2) g/dL Albumin (3.5-5.0) g/dL Crossmatch See Detail Thrombosis Risk Factor Assmnt - DVT/VTE Prophylaxis DVT/VTE Prophylaxis: Pharmacologic Prophylaxis ordered Assessment and Plan Assessment: Generalized weakness and slid onto the floor while getting into the chair. Denies any hitting his head. Pancytopenia likely due to chemotherapy Pancreatic tumor. Recently diagnosed currently undergoing chemotherapy last dose about a week ago Acute kidney injury on CKD stage III with creatinine level 2.5 on admission. Baseline 1.7. Lactic acidosis Moderate to severe protein calorie malnutrition Coronary artery history of stent placement Paroxysmal atrial fibrillation on anticoagulation with Eliquis. Prior history of cardioversion. Hypertension Diabetes type 2 insulin-dependent Hyperlipidemia Osteoarthritis Prior history of smoking DVT prophylaxis patient is already on Eliquis Plan: Patient will be continued IV hydration with normal saline. Point of PRBC was ordered. Monitor CBC. No active bleeding at this time. Pain management with IV Dilaudid and Tylenol. Continue home medications including midodrine.. Follow-up closely. Oncology consult for evaluation. Prognosis is guarded. Time with Patient: Greater than 30
[2023-08-26] MEDS: HYDROmorphone 1 MG/ML 1 ML SYRINGE IVP PRN ×4 (01:23→23:34)
[2023-08-26 06:06] LABS: Appearance,Urine Clear (Clear); Bilirubin,Urine Negative (Negative); Blood,Urine Moderate (Negative); Color,Urine Yellow; Glucose,Urine (UA) Negative (Negative); Hyaline Casts,Urine 8 /lpf (0-2); Ketones,Urine Trace (Negative); Leukocyte Esterase,Urine Negative (Negative); Mucus,Urine Occasional /hpf; Nitrite,Urine Negative (Negative); Protein,Urine Trace (Negative); RBC,Urine 46 /hpf (0-5); Specific Gravity,Urine 1.016 (1.001-1.035); Squamous Epithelial Cell,Urine <1 /hpf (0-4); Urobilinogen,Urine <2.0 mg/dL (<2.0); WBC,Urine 2 /hpf (0-5)
[2023-08-26 06:13] LABS: Glucose,Whole Blood 46 mg/dL (70-110)
[2023-08-26] MEDS ORDERED: DEXTROSE 50% SYRINGE 50 ML IVP PRN ×2 (06:14)
[2023-08-26] MEDS: MIDODRINE 5 MG TAB PO SCH ×2 (06:21→16:04)
[2023-08-26] MEDS: SODIUM CHLORIDE 0.9% 1,000 ML IV SCH ×2 (06:21→19:58)
[2023-08-26 06:45] LABS: Glucose,Whole Blood 84 mg/dL (70-110)
[2023-08-26] MEDS: TAMSULOSIN 0.4 MG CAP.ER.24H PO SCH (08:52)
[2023-08-26] MEDS: CYANOCOBALAMIN 500 MCG TAB PO SCH (08:52)
[2023-08-26] MEDS: METOPROLOL TARTRATE 25 MG TAB PO SCH ×2 (08:52→19:57)
[2023-08-26] MEDS: allopurinoL 100 MG TAB PO SCH (08:52)
[2023-08-26 09:40] LABS: Anisocytosis Slight; HCT 26.1 % (39.0-53.0); Hypochromasia Slight; MCH 33.1 pg (25.0-35.0); MCHC 32.7 g/dL (31.0-37.0); MCV 101.2 fL (80.0-100.0); Macrocytosis Moderate; Mean Platelet Volume 10.5; RBC 2.57 m/uL (4.30-5.90); RDW 17.8 % (11.5-15.5)
[2023-08-26 10:15] LABS: Platelet Count 18 k/uL (150-450); WBC 0.4 k/uL (3.8-10.6)
[2023-08-26 10:16] LABS: HGB 8.5 gm/dL (13.0-17.5)
[2023-08-26 10:28] LABS: ALT 57 U/L (4-49); AST 90 U/L (17-59); African American GFR (CKD) 41 (>60 ml/min/1.73 sqM); Albumin 2.5 g/dL (3.5-5.0); Alkaline Phosphatase 81 U/L (38-126); Anion Gap 11 mmol/L; Blood Urea Nitrogen 45 mg/dL (9-20); Calcium 8.3 mg/dL (8.4-10.2); Carbon Dioxide 19 mmol/L (22-30); Chloride 109 mmol/L (98-107); Glucose 93 mg/dL (74-99); Magnesium 1.9 mg/dL (1.6-2.3); Non-African American GFR(CKD) 35 (>60 ml/min/1.73 sqM); Phosphorus 3.3 mg/dL (2.5-4.5); Potassium 4.1 mmol/L (3.5-5.1); Sodium 139 mmol/L (137-145); Total Bilirubin 1.7 mg/dL (0.2-1.3); Total Protein 5.9 g/dL (6.3-8.2)
[2023-08-26 11:34] LABS: Glucose,Whole Blood 103 mg/dL (70-110)
[2023-08-26 13:21] VITALS: BMI 21.3
--- NOTE | 2023-08-26 13:57 | P.CONS ---
History of Present Illness - Reason for Consult Consult date: 08/26/23 Weakness, cytopenias, due to chemotherapy - History of Present Illness The patient is a 68-year-old white male, well known to myself. She has a known history of localized pancreatic cancer and is currently on neoadjuvant chemotherapy. Last chemotherapy was administered on 08/18/23. The patient states that since then he had significant loss of appetite and decreased oral intake. He has gotten progressively weaker and more fatigued. On the day of admission he states that he started to the floor and was unable to get up. He denied any fever or chills, or any other symptoms localizing for infection. Labs revealed pancytopenia, with hemoglobin 6.2, WBC 0.4, and platelets 18. The patient was admitted and started on IV fluids and also received a blood transfusion. He feels somewhat stronger. No obvious bleeding. His oncology history is as follows: initially seen in consult [facility] 10/21/22, presented with c/o abdominal pain 1 month, associated with progressive jaundice and decreased appetite. CT AP 10/13/22 showed probable mass at the pancreatic head with bile duct and gallbladder dilation. Transferred to [facility], ERCP performed showing biliary stricture, ulcerations in the ampulla. Biliary stent placement, brushings performed, pathology consistent with adenocarcinoma. He required readmission for pain control. Staging PET scan 10/28/22, uptake in the pancreatic mass, no evidence of metastatic disease. EUS 11/17/22, bile duct stone, 4 mm above the stent, 3 enla rged peripancreatic nodes, largest 7 mm, pancreatic head mass measuring 3.6 x 2.9 cm without evidence of involvement of the SMA, celiac trunk, portal vein or SMV. Nonbleeding duodenal ulcer. He was seen by Surgical Oncologist Dr. Gallo at [facility] 11/23/22, recommendation was for neoadjuvant FOLFIRINOX, started 12/14/22, he had 3 cycles. He was admitted for prolonged hospitalization in January for cytopenias, diarrhea, dehydration, and, as stated above, patient did experience cardiac arrest with ventilator dependent respiratory failure. He went to [facility] for rehabilitation, was seen back in the office in early May reassessed performance status prior to resuming any neoadjuvant therapy. PET scan 05/22/23 showed the uptake still was limited to the pancreatic head mass with some improvement from previous. Regimen change to Gemzar and Abraxane, days 1 and 15 every 28 days. Review of Systems Constitutional: Reports fatigue, Reports poor appetite, Reports weakness, Reports weight loss Eyes: denies blurred vision, denies pain Ears: deny: decreased hearing, ear discharge, earache, tinnitus Ears, nose, mouth and throat: Denies headache, Denies sore throat Cardiovascular: Reports decreased exercise tolerance Respiratory: Denies cough Gastrointestinal: Denies abdominal pain, Denies diarrhea, Denies nausea, Denies vomiting Genitourinary: Reports as per HPI Musculoskeletal: Reports muscle weakness Integumentary: Denies pruritus, Denies rash Neurological: Reports weakness Psychiatric: Denies anxiety, Denies depression Endocrine: Reports fatigue, Reports weight change Hematologic/Lymphatic: Reports as per HPI Past Medical History Past Medical History: Atrial Fibrillation, Cancer, Chest Pain / Angina, Diabetes Mellitus, Hyperlipidemia, Hypertension, Musculoskeletal Disorder, Osteoarthritis (OA) Additional Past Medical History / Comment(s): BACK PAIN R/T OLD INJURY. kidney stones, Recent diagnosis of Pancreatic tumor. History of Any Multi-Drug Resistant Organisms: None Reported Past Surgical History: Back Surgery, Heart Catheterization, Heart Catheterization With Stent, Orthopedic Surgery Additional Past Surgical History / Comment(s): R Knee scope; Colonoscopy; D eviated Septum Repair. BACK SURG.X2 PTCA W/ STENTS X2. CARDIOVERSION 03/28/18. ERCP last week with Dr. Morfin out of [facility] with stent placement. Past Anesthesia/Blood Transfusion Reactions: No Reported Reaction Date of Last Stent Placement:: 1997 Past Psychological History: No Psychological Hx Reported Smoking Status: Former smoker - Past Family History Mother Family Medical History: Dementia, Memory Impairment Additional Family Medical History / Comment(s): Mother in her 80s r/t advanced dementia. Father Family Medical History: Myocardial Infarction (SC) Additional Family Medical History / Comment(s): Father from coronary artery disease. Sister(s) Additional Family Medical History / Comment(s): Patient has 3 sisters one past from CVA. One has coronary artery disease with stent in 1 has no major medical problems. Patient is not having any children. Patient does not have any brothers. Medications and Allergies Home Medications Medication Instructions Recorded Confirmed Type Apixaban [Eliquis] 5 mg PO BID 03/20/18 08/25/23 History Cyanocobalamin (Vitamin B-12) 1,000 mcg PO DAILY 03/20/18 08/25/23 History [Vitamin B-12] Cyclobenzaprine [Flexeril] 10 mg PO HS PRN 03/20/18 08/25/23 History Isosorbide Mononitrate ER [Imdur] 30 mg PO DAILY 03/20/18 08/25/23 History Nitroglycerin Sl Tabs [Nitrostat] 0.4 mg SUBLINGUAL Q5M PRN 03/20/18 08/25/23 History Pravastatin Sodium [Pravachol] 20 mg PO HS 12/13/19 08/25/23 History Cholecalciferol [Vitamin D3 (25 50 mcg PO DAILY 10/13/22 08/25/23 History Mcg = 1000 Iu)] Furosemide [Lasix] 40 mg PO DAILY 10/20/22 08/25/23 History Diphenoxylate HCl/Atropine 2 tab PO QID PRN 07/10/23 08/25/23 History [Lomotil 2.5-0.025 mg Tablet] Insulin Degludec [Tresiba 10 units SQ DAILY 07/10/23 08/25/23 History Flextouch U-100 Pen] allopurinoL [Zyloprim] 100 mg PO DAILY 07/10/23 08/25/23 History Acetaminophen Tab [Tylenol] 650 mg PO Q6HR PRN tab 07/14/23 08/25/23 Rx Metoprolol Tartrate [Lopressor] 100 mg PO BID 30 Days #120 tab 07/14/23 08/25/23 Rx Midodrine [ProAmatine] 5 mg PO AC-BID 30 Days #60 tab 07/14/23 08/25/23 Rx Tamsulosin [Flomax] 0.4 mg PO PC-BRKFST #30 cap 07/14/23 08/25/23 Rx HYDROcodone/APAP 7.5-325MG [[place] 1 - 2 tab PO Q6H PRN 08/25/23 08/25/23 History 7.5-325] Allergies Allergy/AdvReac Type Severity Reaction Status Date / Time morphine Allergy Swelling Verified 08/25/23 16:42 Physical Exam Vitals: Vital Signs Temp Pulse Pulse Resp BP BP Pulse Ox 08/26/23 12:00 103 H 16 101/62 100 08/26/23 09:04 97 08/26/23 08:00 98.1 F 104 H 16 91/57 99 08/26/23 05:15 97.6 F 90 14 120/75 92 L 08/26/23 02:11 97.4 F L 91 18 103/56 94 L 08/26/23 02:00 82 18 08/26/23 01:51 97.9 F 100 18 95/55 94 L 08/26/23 01:18 97.9 F 75 18 112/56 97 08/26/23 00:00 97.9 F 82 18 107/66 94 L 08/25/23 21:51 97.6 F 86 18 112/64 95 08/25/23 21:31 97.7 F 61 20 107/64 95 08/25/23 21:20 97.5 F L 94 18 94/51 100 08/25/23 20:00 89 20 08/25/23 18:30 97.5 F L 98 18 111/65 100 08/25/23 17:58 92 20 97/59 99 08/25/23 17:00 18 99/63 94 L 08/25/23 16:00 78 18 100/68 95 08/25/23 15:00 101/65 94 L 08/25/23 14:01 94 L 08/25/23 13:56 96.8 F L 65 20 107/62 97 Intake and Output 08/25/23 08/26/23 08/26/23 22:59 06:59 14:59 Intake Total 0 596 438 Output Total 900 Balance 0 -304 438 Intake: Oral 438 Blood Product 0 596 Rc As-1 Unit 0 310 [id number] Rc Pheresis As-3 Unit 286 [id number] Output: Urine 900 Straight 450 Other: Voiding Method Urinal Urinal Urinal # Bowel Movements 1 Weight 73.482 kg 73.482 kg - Constitutional General appearance: no acute distress - EENT Eyes: EOMI, PERRLA ENT: hearing grossly normal, normal oropharynx - Neck Neck: no lymphadenopathy - Respiratory Respiratory: bilateral: CTA - Cardiovascular Rhythm: regular Heart sounds: normal: S1, S2 - Gastrointestinal General gastrointestinal: normal bowel sounds, soft - Integumentary Integumentary: normal - Neurologic Neurologic: CNII-XII intact - Musculoskeletal Musculoskeletal: generalized weakness, strength equal bilaterally - Psychiatric Psychiatric: A&O x's 3, appropriate affect Results CBC & Chem 7: 08/26/23 08:18 08/26/23 08:18 Labs: Abnormal Lab Results - Last 24 Hours (Table) 08/25/23 08/25/23 08/25/23 Range/Units 14:47 14:47 14:47 WBC 0.3 L* (3.8-10.6) k/uL RBC 1.79 L (4.30-5.90) m/uL Hgb 6.2 L* D (13.0-17.5) gm/dL Hct 18.7 L* (39.0-53.0) % MCV 104.3 H (80.0-100.0) fL RDW 16.9 H (11.5-15.5) % Plt Count 12 L* D (150-450) k/uL Neutrophils # 0.1 L* (1.3-7.7) k/uL Lymphocytes # 0.2 L (1.0-4.8) k/uL PT 26.6 H (10.0-12.5) sec INR 2.7 H (<1.2) APTT 37.7 H (22.0-30.0) sec Chloride 108 H (98-107) mmol/L Carbon Dioxide 16 L (22-30) mmol/L BUN 45 H (9-20) mg/dL Creatinine 2.50 H (0.66-1.25) mg/dL Glucose 111 H (74-99) mg/dL POC Glucose (mg/dL) (70-110) mg/dL Plasma Lactic Acid Magen (0.7-2.0) mmol/L Calcium (8.4-10.2) mg/dL Total Bilirubin 1.4 H (0.2-1.3) mg/dL AST 64 H (17-59) U/L ALT (4-49) U/L Total Protein 6.0 L (6.3-8.2) g/dL Albumin 2.6 L (3.5-5.0) g/dL Urine Protein (Negative) Urine Ketones (Negative) Urine Blood (Negative) Urine RBC (0-5) /hpf Hyaline Casts (0-2) /lpf Urine Mucus (None) /hpf Crossmatch 11/03/23 11/03/23 11/04/23 Range/Units 14:47 17:53 04:00 WBC (3.8-10.6) k/uL RBC (4.30-5.90) m/uL Hgb (13.0-17.5) gm/dL Hct (39.0-53.0) % MCV (80.0-100.0) fL RDW (11.5-15.5) % Plt Count (150-450) k/uL Neutrophils # (1.3-7.7) k/uL Lymphocytes # (1.0-4.8) k/uL PT (10.0-12.5) sec INR (<1.2) APTT (22.0-30.0) sec Chloride (98-107) mmol/L Carbon Dioxide (22-30) mmol/L BUN (9-20) mg/dL Creatinine (0.66-1.25) mg/dL Glucose (74-99) mg/dL POC Glucose (mg/dL) (70-110) mg/dL Plasma Lactic Acid Magen 3.2 H* (0.7-2.0) mmol/L Calcium (8.4-10.2) mg/dL Total Bilirubin (0.2-1.3) mg/dL AST (17-59) U/L ALT (4-49) U/L Total Protein (6.3-8.2) g/dL Albumin (3.5-5.0) g/dL Urine Protein Trace H (Negative) Urine Ketones Trace H (Negative) Urine Blood Moderate H (Negative) Urine RBC 46 H (0-5) /hpf Hyaline Casts 8 H (0-2) /lpf Urine Mucus Occasional H (None) /hpf Crossmatch See Detail 08/26/23 08/26/23 08/26/23 Range/Units 06:11 08:18 08:18 WBC 0.4 L* (3.8-10.6) k/uL RBC 2.57 L (4.30-5.90) m/uL Hgb 8.5 L D (13.0-17.5) gm/dL Hct 26.1 L (39.0-53.0) % MCV 101.2 H (80.0-100.0) fL RDW 17.8 H (11.5-15.5) % Plt Count 18 L* (150-450) k/uL Neutrophils # (1.3-7.7) k/uL Lymphocytes # (1.0-4.8) k/uL PT (10.0-12.5) sec INR (<1.2) APTT (22.0-30.0) sec Chloride 109 H (98-107) mmol/L Carbon Dioxide 19 L (22-30) mmol/L BUN 45 H (9-20) mg/dL Creatinine 1.92 H (0.66-1.25) mg/dL Glucose (74-99) mg/dL POC Glucose (mg/dL) 46 L (70-110) mg/dL Plasma Lactic Acid Magen (0.7-2.0) mmol/L Calcium 8.3 L (8.4-10.2) mg/dL Total Bilirubin 1.7 H (0.2-1.3) mg/dL AST 90 H (17-59) U/L ALT 57 H (4-49) U/L Total Protein 5.9 L (6.3-8.2) g/dL Albumin 2.5 L (3.5-5.0) g/dL Urine Protein (Negative) Urine Ketones (Negative) Urine Blood (Negative) Urine RBC (0-5) /hpf Hyaline Casts (0-2) /lpf Urine Mucus (None) /hpf Crossmatch Comments: CT brain cervical spine, and x-ray pelvis report reviewed. No acute fracture, or bleeding Chest x-ray: report reviewed Venous US: report reviewed Assessment and Plan (1) Weakness Narrative/Plan: This is due to the cumulative affect of his treatment. The patient is an ongoing issues with the same, with temporary improvement with dose adjustment in dose daily, followed by recurrence of cumulative effects of a similar nature. - The patient had decrease in appetite and dehydration, as well as generalized affect of chemotherapy causing his weakness. The treatment would be supportive, with IV hydration, and it as tolerated. He is expected to improve with the above, as he gets further out from treatment. Current Visit: Yes Status: Acute Code(s): R53.1 - WEAKNESS SNOMED Code(s): 10512892 (2) Pancytopenia Narrative/Plan: Due to chemotherapy. Patient has received blood transfusion for hemoglobin less than 7, with appropriate response. Transfuse to keep hemoglobin greater than 7, and platelets greater than 10,000. We will check an echo to see the patient received any growth factors. Those are not indicated currently, as he has no evidence of infection, even if he did not receive them before. Current Visit: Yes Status: Acute Code(s): D61.818 - OTHER PANCYTOPENIA SNOMED Code(s): 122640355 (3) Pancreatic adenocarcinoma Narrative/Plan: Diagnostic and therapeutic circumstances as noted above. Once acute situation resolve sufficiently, we will need to reevaluate his current regimen for adjustments to try to improve tolerability. Current Visit: No Status: Acute Priority: High Code(s): C25.9 - MALIGNANT NEOPLASM OF PANCREAS, UNSPECIFIED SNOMED Code(s): 337538002 Plan: Above discussed in detail with the admitting service
[2023-08-26 16:42] LABS: Glucose,Whole Blood 101 mg/dL (70-110)
[2023-08-26] MEDS: PRAVASTATIN SODIUM 20 MG TAB PO SCH (19:58)
[2023-08-26 20:09] LABS: Glucose,Whole Blood 130 mg/dL (70-110)
[2023-08-27] MEDS: ACETAMINOPHEN TAB 325 MG TAB PO PRN ×2 (03:36→13:01)
[2023-08-27 03:41] LABS: Glucose,Whole Blood 126 mg/dL (70-110)
[2023-08-27 06:11] LABS: Glucose,Whole Blood 121 mg/dL (70-110)
[2023-08-27] MEDS: MIDODRINE 5 MG TAB PO SCH ×3 (06:16→15:46)
--- NOTE | 2023-08-27 07:49 | XR ---
EXAMINATION TYPE: XR chest 1V DATE OF EXAM: 08/27/2023 6:26 AM CLINICAL INDICATION:Male, 68 years old with history of DOMONIQUE; PH[facility] COMPARISON: 08/25/2023 TECHNIQUE: XR chest 1V Frontal view of the chest. FINDINGS: Lines/Tubes/Devices: Right chest Port-A-Cath with tip in the inferior SVC. EKG leads over the chest. Heart/mediastinum: Stable cardiomediastinal silhouette. Heart appears mildly enlarged. Atheroscleroti c calcification of the aorta. Pulmonary vascularity: Not increased. Lungs/Pleura: Mild platelike atelectasis in the right mid to lower lung zone. No focal consolidation. No sizable pleural effusion or pneumothorax. Musculoskeletal: Bony structures appear grossly unchanged. Mild degenerative changes of the spine and shoulders. Similar mild asymmetric elevation of the right hemidiaphragm. Other findings: None significant. IMPRESSION: Mild platelike atelectasis on the right. Otherwise no significant interval change.
[2023-08-27] MEDS: CYANOCOBALAMIN 500 MCG TAB PO SCH (08:39)
[2023-08-27] MEDS: TAMSULOSIN 0.4 MG CAP.ER.24H PO SCH (08:39)
[2023-08-27] MEDS: METOPROLOL TARTRATE 25 MG TAB PO SCH ×2 (08:39→20:26)
[2023-08-27] MEDS: allopurinoL 100 MG TAB PO SCH (08:39)
[2023-08-27] MEDS: SODIUM CHLORIDE 0.9% 1,000 ML IV SCH ×2 (08:40→20:26)
[2023-08-27 09:10] LABS: Anisocytosis Slight; HCT 20.2 % (39.0-53.0); MCH 33.9 pg (25.0-35.0); MCV 99.5 fL (80.0-100.0); Macrocytosis Slight; Mean Platelet Volume 9.6; RBC 2.03 m/uL (4.30-5.90)
[2023-08-27 09:41] LABS: WBC 0.5 k/uL (3.8-10.6)
[2023-08-27 09:47] LABS: African American GFR (CKD) 58 (>60 ml/min/1.73 sqM); Anion Gap 10 mmol/L; Blood Urea Nitrogen 28 mg/dL (9-20); Calcium 7.9 mg/dL (8.4-10.2); Carbon Dioxide 17 mmol/L (22-30); Chloride 112 mmol/L (98-107); Glucose 118 mg/dL (74-99); Non-African American GFR(CKD) 50 (>60 ml/min/1.73 sqM); Potassium 3.7 mmol/L (3.5-5.1); Sodium 139 mmol/L (137-145)
[2023-08-27 10:39] LABS: Platelet Count 22 k/uL (150-450)
[2023-08-27 11:02] LABS: HGB 6.9 gm/dL (13.0-17.5)
--- NOTE | 2023-08-27 11:24 | P.PN ---
Subjective Progress Note Date: 08/27/23 Patient continues to have generalized weakness. T-max of 100. c/o chills. Appetite is diminished. No obvious bleeding or bruising. Objective - Vital Signs Vital signs: Vital Signs Temp 97.8 F 08/27/23 08:00 Pulse 109 H 08/27/23 08:00 Resp 16 08/27/23 08:00 BP 93/53 08/27/23 08:00 Pulse Ox 97 08/27/23 08:00 FiO2 Intake & Output 08/26/23 08/27/23 08/27/23 19:59 06:59 18:59 Intake Total 118 Output Total Balance 118 Weight Intake: Intake, IV Titration Amount Sodium Chloride 0.9% 1, 000 ml @ 75 mls/hr IV . [id number] [facility] Rx#:[id number] Oral 118 Output: Urine Other: Voiding Method Indwelling Catheter - Constitutional General appearance: Present: no acute distress - EENT Eyes: Present: EOMI ENT: Present: hearing grossly normal, normal oropharynx - Respiratory Respiratory: bilateral: CTA - Cardiovascular Rhythm: regular Heart sounds: normal: S1, S2 - Gastrointestinal General gastrointestinal: Present: normal bowel sounds, soft - Integumentary Integumentary: Present: normal - Neurologic Neurologic: Present: CNII-XII intact - Musculoskeletal Musculoskeletal: Present: generalized weakness, strength equal bilaterally - Psychiatric Psychiatric: Present: A&O x's 3, appropriate affect - Labs CBC & Chem 7: 08/27/23 07:32 08/27/23 07:32 Labs: Abnormal Lab Results - Last 24 Hours (Table) 08/25/23 08/26/23 08/27/23 Range/Units 17:53 20:06 03:39 WBC (3.8-10.6) k/uL RBC (4.30-5.90) m/uL Hgb (13.0-17.5) gm/dL Hct (39.0-53.0) % RDW (11.5-15.5) % Plt Count (150-450) k/uL Chloride (98-107) mmol/L Carbon Dioxide (22-30) mmol/L BUN (9-20) mg/dL Creatinine (0.66-1.25) mg/dL Glucose (74-99) mg/dL POC Glucose (mg/dL) 130 H 126 H (70-110) mg/dL Calcium (8.4-10.2) mg/dL Crossmatch See Detail 08/27/23 08/27/23 08/27/23 Range/Units 06:10 07:32 07:32 WBC 0.5 L* (3.8-10.6) k/uL RBC 2.03 L (4.30-5.90) m/uL Hgb 6.9 L* D (13.0-17.5) gm/dL Hct 20.2 L (39.0-53.0) % RDW 18.0 H (11.5-15.5) % Plt Count 22 L (150-450) k/uL Chloride 112 H (98-107) mmol/L Carbon Dioxide 17 L (22-30) mmol/L BUN 28 H (9-20) mg/dL Creatinine 1.43 H (0.66-1.25) mg/dL Glucose 118 H (74-99) mg/dL POC Glucose (mg/dL) 121 H (70-110) mg/dL Calcium 7.9 L (8.4-10.2) mg/dL Crossmatch Assessment and Plan (1) Weakness Narrative/Plan: Due to the effects of chemotherapy, directly, and from cytopenias. Improvement is slow and slightly so far. Continue supportive care with transfusions as needed, as well as IV hydration. Current Visit: Yes Status: Acute Code(s): R53.1 - WEAKNESS SNOMED Code(s): 32453556 (2) Pancytopenia Narrative/Plan: Hemoglobin was 6.9 today. 1 unit PRBC ordered. The patient will be started on filgrastim. He has not required growth factors as an outpatient so far. There has been some mild increase in his temperature noted during this admission. He is experiencing some chills. I will start Cefepime empirically - Current Visit: Yes Status: Acute Code(s): D61.818 - OTHER PANCYTOPENIA SNOMED Code(s): 022360063 (3) Pancreatic adenocarcinoma Narrative/Plan: Treatment plan will be reviewed and adjusted as appropriate, post discharge, following resolution of the acute issues. Current Visit: No Status: Acute Priority: High Code(s): C25.9 - MALIGNANT NEOPLASM OF PANCREAS, UNSPECIFIED SNOMED Code(s): 427065974
[2023-08-27 11:55] LABS: Glucose,Whole Blood 131 mg/dL (70-110)
[2023-08-27] MEDS ORDERED: CEFEPIME 2 GM in SODIUM CHLORIDE 0.9% 100 ML IVPB SCH (12:00)
[2023-08-27 13:41] LABS: Appearance,Urine Clear (Clear); Bilirubin,Urine Negative (Negative); Blood,Urine Small (Negative); Color,Urine Yellow; Glucose,Urine (UA) Negative (Negative); Ketones,Urine Trace (Negative); Leukocyte Esterase,Urine Negative (Negative); Mucus,Urine Rare /hpf; Nitrite,Urine Negative (Negative); PH, Urine 5.5 (5.0-8.0); Protein,Urine 1+ (Negative); RBC,Urine 7 /hpf (0-5); Specific Gravity,Urine 1.018 (1.001-1.035); Urobilinogen,Urine <2.0 mg/dL (<2.0); WBC,Urine 1 /hpf (0-5)
[2023-08-27] MEDS: FILGRASTIM-SNDZ 480 MCG/0.8 ML SYRINGE SQ SCH (15:47)
[2023-08-27] MEDS: HYDROmorphone 1 MG/ML 1 ML SYRINGE IVP PRN ×2 (15:47→20:26)
[2023-08-27 16:37] LABS: Glucose,Whole Blood 197 mg/dL (70-110)
[2023-08-27 20:10] LABS: Glucose,Whole Blood 213 mg/dL (70-110)
[2023-08-27] MEDS: PRAVASTATIN SODIUM 20 MG TAB PO SCH (20:26)
[2023-08-27] MEDS: CEFEPIME 2 GM in SODIUM CHLORIDE 0.9% 100 ML IVPB SCH (23:32)
--- NOTE | 2023-08-28 01:30 | P.PN ---
Subjective Progress Note Date: 08/26/23 Patient is a 68-year-old male with a known history of pancreatic cancer currently on chemotherapy last dose about a week ago, hypertension, hyperlipidemia, diabetes type 2, atrial fibrillation on anticoagulation with Eliquis, coronary artery disease history of stent placement and prior history of smoking was brought to the hospital by EMS. Patient states that last night around 2 AM he was trying to sit in the chair but slipped onto the floor. He tried to get up but the chair slid away. Patient was unable to get up from the floor and called for help. Patient crawled upstairs and injured his left foot/toe while going up. Finally he was able to get hold of someone to help this morning. Patient has been having generalized weakness. Denies any headache or dizziness. Denies any hitting head his head. No complaints of chest pain or shortness of breath. Patient does have left lower swelling on and off for the past few months. No nausea vomiting or abdominal pain or diarrhea. No fever no chills. Chest x-ray showed no acute pulmonary process. CT head and cervical spine showed mild cerebral atrophy. Old lacunar infarct right basal ganglia. No acute intracranial abnormality seen. No acute fracture or malalignment of the cervical spine. Moderate spondylitic changes especially C5-C7 levels. Severe bilateral neuroforaminal stenosis C6- C7. Moderate spinal canal stenosis at this level. Pelvic x-ray showed no acute osseous abnormality of the pelvis. Laboratory data showed WBC 0.3, hemoglobin 6.2, MCV 104.3 and platelets 12 INR 2.7, BUN 45 and creatinine 2.5, bicarb is 16, blood sugar is 111, lactic acid 3.2, total bilirubin level is 1.4 AST 64 ALT 37 alk phos 91, CK1 43, troponin 0.013, albumin 2.6 and TSH level is 0.765. 08/26/2023 Patient is lying in the bed. Awake alert and oriented x3. Feels little better. No complaints of chest pain or shortness of breath. Pain is controlled. No headache or dizziness or lightheadedness. Laboratory data showed WBC 0.4, hemoglobin 8.5 and platelets 18, BUN 45 and creatinine 1.92. Magnesium 1.9 total bilirubin was 1.7 AST 90 ALT 57 alk phos 81. Albumin 2.5. Patient has been afebrile. Blood pressure is 108/63. Currently on 2 L oxygen via nasal cannula. Current medications reviewed. Objective - Vital Signs Vital signs: Vital Signs Temp 98.1 F 08/26/23 08:00 Pulse 104 H 08/26/23 08:00 Resp 16 08/26/23 08:00 BP 91/57 08/26/23 08:00 Pulse Ox 97 08/26/23 09:04 FiO2 Intake & Output 08/25/23 08/26/23 08/26/23 18:59 06:59 18:59 Intake Total 596 118 Output Total 900 Balance -304 118 Weight 73.482 kg 73.482 kg Intake: Oral 118 Blood Product 596 Rc As-1 Unit 310 [id number] Rc Pheresis As-3 Unit 286 [id number] Output: Urine 900 Straight 450 Other: Voiding Method Urinal Urinal # Bowel Movements 1 - Exam PHYSICAL EXAMINATION: Patient is lying in the bed , no acute distress, awake alert and oriented.. HEENT: Normocephalic. Neck is supple. Pupils reactive. Nostrils clear. Oral c avity is moist. Neck reveals no JVD, carotid bruits, or thyromegaly. CHEST EXAMINATION: Trachea is central. Symmetrical expansion. Bibasilar diminished sounds.. CARDIAC: Normal S1, S2 with no gallops. No murmurs ABDOMEN: Soft. Bowel sounds present. Mild epigastric tenderness. No guarding or rigidity.. No organomegaly. No abdominal bruits. Extremities: Patient does have left lower extremity 2+ swelling. Left great toe wound which is wrapped with gauze. No active bleeding.. No clubbing or cyanosis Neurologically awake, alert, oriented x3 with well-coordinated movements. No gross focal deficits noted Skin: No rash or skin lesions. Psychiatric: Coperative. Nonsuicidal, Musculoskeletal: No joint swelling or deformity. - Labs CBC & Chem 7: 08/27/23 07:32 08/27/23 07:32 Labs: Abnormal Lab Results - Last 24 Hours (Table) 08/25/23 08/25/23 08/25/23 Range/Units 14:47 14:47 14:47 WBC 0.3 L* (3.8-10.6) k/uL RBC 1.79 L (4.30-5.90) m/uL Hgb 6.2 L* D (13.0-17.5) gm/dL Hct 18.7 L* (39.0-53.0) % MCV 104.3 H (80.0-100.0) fL RDW 16.9 H (11.5-15.5) % Plt Count 12 L* D (150-450) k/uL Neutrophils # 0.1 L* (1.3-7.7) k/uL Lymphocytes # 0.2 L (1.0-4.8) k/uL PT 26.6 H (10.0-12.5) sec INR 2.7 H (<1.2) APTT 37.7 H (22.0-30.0) sec Chloride 108 H (98-107) mmol/L Carbon Dioxide 16 L (22-30) mmol/L BUN 45 H (9-20) mg/dL Creatinine 2.50 H (0.66-1.25) mg/dL Glucose 111 H (74-99) mg/dL POC Glucose (mg/dL) (70-110) mg/dL Plasma Lactic Acid Magen (0.7-2.0) mmol/L Calcium (8.4-10.2) mg/dL Total Bilirubin 1.4 H (0.2-1.3) mg/dL AST 64 H (17-59) U/L ALT (4-49) U/L Total Protein 6.0 L (6.3-8.2) g/dL Albumin 2.6 L (3.5-5.0) g/dL Urine Protein (Negative) Urine Ketones (Negative) Urine Blood (Negative) Urine RBC (0-5) /hpf Hyaline Casts (0-2) /lpf Urine Mucus (None) /hpf Crossmatch 08/25/23 08/25/23 08/26/23 Range/Units 14:47 17:53 04:00 WBC (3.8-10.6) k/uL RBC (4.30-5.90) m/uL Hgb (13.0-17.5) gm/dL Hct (39.0-53.0) % MCV (80.0-100.0) fL RDW (11.5-15.5) % Plt Count (150-450) k/uL Neutrophils # (1.3-7.7) k/uL Lymphocytes # (1.0-4.8) k/uL PT (10.0-12.5) sec INR (<1.2) APTT (22.0-30.0) sec Chloride (98-107) mmol/L Carbon Dioxide (22-30) mmol/L BUN (9-20) mg/dL Creatinine (0.66-1.25) mg/dL Glucose (74-99) mg/dL POC Glucose (mg/dL) (70-110) mg/dL Plasma Lactic Acid Magen 3.2 H* (0.7-2.0) mmol/L Calcium (8.4-10.2) mg/dL Total Bilirubin (0.2-1.3) mg/dL AST (17-59) U/L ALT (4-49) U/L Total Protein (6.3-8.2) g/dL Albumin (3.5-5.0) g/dL Urine Protein Trace H (Negative) Urine Ketones Trace H (Negative) Urine Blood Moderate H (Negative) Urine RBC 46 H (0-5) /hpf Hyaline Casts 8 H (0-2) /lpf Urine Mucus Occasional H (None) /hpf Crossmatch See Detail 08/26/23 08/26/23 08/26/23 Range/Units 06:11 08:18 08:18 WBC 0.4 L* (3.8-10.6) k/uL RBC 2.57 L (4.30-5.90) m/uL Hgb 8.5 L D (13.0-17.5) gm/dL Hct 26.1 L (39.0-53.0) % MCV 101.2 H (80.0-100.0) fL RDW 17.8 H (11.5-15.5) % Plt Count 18 L* (150-450) k/uL Neutrophils # (1.3-7.7) k/uL Lymphocytes # (1.0-4.8) k/uL PT (10.0-12.5) sec INR (<1.2) APTT (22.0-30.0) sec Chloride 109 H (98-107) mmol/L Carbon Dioxide 19 L (22-30) mmol/L BUN 45 H (9-20) mg/dL Creatinine 1.92 H (0.66-1.25) mg/dL Glucose (74-99) mg/dL POC Glucose (mg/dL) 46 L (70-110) mg/dL Plasma Lactic Acid Magen (0.7-2.0) mmol/L Calcium 8.3 L (8.4-10.2) mg/dL Total Bilirubin 1.7 H (0.2-1.3) mg/dL AST 90 H (17-59) U/L ALT 57 H (4-49) U/L Total Protein 5.9 L (6.3-8.2) g/dL Albumin 2.5 L (3.5-5.0) g/dL Urine Protein (Negative) Urine Ketones (Negative) Urine Blood (Negative) Urine RBC (0-5) /hpf Hyaline Casts (0-2) /lpf Urine Mucus (None) /hpf Crossmatch Assessment and Plan Assessment: Generalized weakness and slid onto the floor while getting into the chair. Denies any hitting his head. Pancytopenia likely due to chemotherapy Pancreatic tumor. Recently diagnosed currently undergoing chemotherapy last dose about a week ago Acute kidney injury on CKD stage III with creatinine level 2.5 on admission. Baseline 1.7. Lactic acidosis Moderate to severe protein calorie malnutrition Coronary artery history of stent placement Paroxysmal atrial fibrillation on anticoagulation with Eliquis. Prior history of cardioversion. Hypertension Diabetes type 2 insulin-dependent Hyperlipidemia Osteoarthritis Prior history of smoking DVT prophylaxis patient is already on Eliquis Plan: Patient will be continued IV hydration with normal saline. Patient is s/p 1 unit of PRBC transfusion.. Monitor CBC. No active bleeding at this time. Pain management with IV Dilaudid and Tylenol. Continue home medications including midodrine.. Follow-up closely. Oncology is on board.. Prognosis is guarded. PT OT
--- NOTE | 2023-08-28 01:33 | P.PN ---
Subjective Progress Note Date: 08/27/23 Patient is a 68-year-old male with a known history of pancreatic cancer currently on chemotherapy last dose about a week ago, hypertension, hyperlipidemia, diabetes type 2, atrial fibrillation on anticoagulation with Eliquis, coronary artery disease history of stent placement and prior history of smoking was brought to the hospital by EMS. Patient states that last night around 2 AM he was trying to sit in the chair but slipped onto the floor. He tried to get up but the chair slid away. Patient was unable to get up from the floor and called for help. Patient crawled upstairs and injured his left foot/toe while going up. Finally he was able to get hold of someone to help this morning. Patient has been having generalized weakness. Denies any headache or dizziness. Denies any hitting head his head. No complaints of chest pain or shortness of breath. Patient does have left lower swelling on and off for the past few months. No nausea vomiting or abdominal pain or diarrhea. No fever no chills. Chest x-ray showed no acute pulmonary process. CT head and cervical spine showed mild cerebral atrophy. Old lacunar infarct right basal ganglia. No acute intracranial abnormality seen. No acute fracture or malalignment of the cervical spine. Moderate spondylitic changes especially C5-C7 levels. Severe bilateral neuroforaminal stenosis C6- C7. Moderate spinal canal stenosis at this level. Pelvic x-ray showed no acute osseous abnormality of the pelvis. Laboratory data showed WBC 0.3, hemoglobin 6.2, MCV 104.3 and platelets 12 INR 2.7, BUN 45 and creatinine 2.5, bicarb is 16, blood sugar is 111, lactic acid 3.2, total bilirubin level is 1.4 AST 64 ALT 37 alk phos 91, CK1 43, troponin 0.013, albumin 2.6 and TSH level is 0.765. 08/26/2023 Patient is lying in the bed. Awake alert and oriented x3. Feels little better. No complaints of chest pain or shortness of breath. Pain is controlled. No headache or dizziness or lightheadedness. Laboratory data showed WBC 0.4, hemoglobin 8.5 and platelets 18, BUN 45 and creatinine 1.92. Magnesium 1.9 total bilirubin was 1.7 AST 90 ALT 57 alk phos 81. Albumin 2.5. Patient has been afebrile. Blood pressure is 108/63. Currently on 2 L oxygen via nasal cannula. 08/27/2023 Patient is currently resting in the bed. Awake alert and oriented x3. Still having generalized weakness but slightly better. Patient does have poor oral intake. Patient was having temperature Tmax 100.0 early in the morning today. Patient was also tachycardic at this time. Urinalysis is negative for infection. Chest x-ray showed mild platelike atelectasis on the right. Otherwise no interval change. Patient is IV hydration with normal saline at 75 cc/h. Laboratory data showed WBC 0.5 hemoglobin 6.9. Platelets 22 BUN 48 and creatinine 1.43 and A1c level was 7.1. Urinalysis showed trace ketones small blood and negative leukocyte esterase. Blood sugar is fairly controlled. Current medications reviewed. Objective - Vital Signs Vital signs: Vital Signs Temp 97.8 F 08/27/23 08:00 Pulse 109 H 08/27/23 08:00 Resp 16 08/27/23 08:00 BP 93/53 08/27/23 08:00 Pulse Ox 97 08/27/23 08:00 FiO2 Intake & Output 08/26/23 08/27/23 08/27/23 19:59 06:59 18:59 Intake Total 118 Output Total Balance 118 Weight Intake: Intake, IV Titration Amount Sodium Chloride 0.9% 1, 000 ml @ 75 mls/hr IV . [id number] [facility] Rx#:[id number] Oral 118 Output: Urine Other: Voiding Method - Exam PHYSICAL EXAMINATION: Patient is lying in the bed , no acute distress, awake alert and oriented.. HEENT: Normocephalic. Neck is supple. Pupils reactive. Nostrils clear. Oral cavity is moist. Neck reveals no JVD, carotid bruits, or thyromegaly. CHEST EXAMINATION: Trachea is central. Symmetrical expansion. Bibasilar diminished sounds.. CARDIAC: Normal S1, S2 with no gallops. No murmurs ABDOMEN: Soft. Bowel sounds present. Mild epigastric tenderness. No guarding or rigidity.. No organomegaly. No abdominal bruits. Extremities: Patient does have left lower extremity 2+ swelling. Left great toe wound which is wrapped with gauze. No active bleeding.. No clubbing or cyanosis Neurologically awake, alert, oriented x3 with well-coordinated movements. No gross focal deficits noted Skin: No rash or skin lesions. Psychiatric: Coperative. Nonsuicidal, Musculoskeletal: No joint swelling or deformity. - Labs CBC & Chem 7: 08/27/23 07:32 08/27/23 07:32 Labs: Abnormal Lab Results - Last 24 Hours (Table) 08/25/23 08/26/23 08/27/23 Range/Units 17:53 20:06 03:39 WBC (3.8-10.6) k/uL RBC (4.30-5.90) m/uL Hgb (13.0-17.5) gm/dL Hct (39.0-53.0) % RDW (11.5-15.5) % Plt Count (150-450) k/uL Chloride (98-107) mmol/L Carbon Dioxide (22-30) mmol/L BUN (9-20) mg/dL Creatinine (0.66-1.25) mg/dL Glucose (74-99) mg/dL POC Glucose (mg/dL) 130 H 126 H (70-110) mg/dL Calcium (8.4-10.2) mg/dL Crossmatch See Detail 08/27/23 08/27/23 08/27/23 Range/Units 06:10 07:32 07:32 WBC 0.5 L* (3.8-10.6) k/uL RBC 2.03 L (4.30-5.90) m/uL Hgb 6.9 L* D (13.0-17.5) gm/dL Hct 20.2 L (39.0-53.0) % RDW 18.0 H (11.5-15.5) % Plt Count 22 L (150-450) k/uL Chloride 112 H (98-107) mmol/L Carbon Dioxide 17 L (22-30) mmol/L BUN 28 H (9-20) mg/dL Creatinine 1.43 H (0.66-1.25) mg/dL Glucose 118 H (74-99) mg/dL POC Glucose (mg/dL) 121 H (70-110) mg/dL Calcium 7.9 L (8.4-10.2) mg/dL Crossmatch Assessment and Plan Assessment: Generalized weakness and slid onto the floor while getting into the chair. Denies any hitting his head. Pancytopenia likely due to chemotherapy Pancreatic tumor. Recently diagnosed currently undergoing chemotherapy last dose about a week ago Acute kidney injury on CKD stage III with creatinine level 2.5 on admission. Baseline 1.7. Lactic acidosis Moderate to severe protein calorie malnutrition Coronary artery history of stent placement Paroxysmal atrial fibrillation on anticoagulation with Eliquis. Prior history of cardioversion. Hypertension Diabetes type 2 insulin-dependent Hyperlipidemia Osteoarthritis Prior history of smoking DVT prophylaxis patient is already on Eliquis Plan: Patient will be continued IV hydration with normal saline. Patient is s/p 1 unit of PRBC transfusion in the ER..Patient is getting second unit of blood transfusion today. Monitor CBC. No active bleeding at this time. Pain management with IV Dilaudid and Tylenol. Continue home medications including midodrine.. Follow-up closely. Oncology is on board.. Prognosis is guarded. PT OT Time with Patient: Greater than 30
[2023-08-28] MEDS: MIDODRINE 5 MG TAB PO SCH ×3 (05:15→16:44)
[2023-08-28] MEDS: HYDROmorphone 1 MG/ML 1 ML SYRINGE IVP PRN ×5 (05:15→23:53)
[2023-08-28 06:17] LABS: Glucose,Whole Blood 106 mg/dL (70-110)
[2023-08-28] MEDS: METOPROLOL TARTRATE 25 MG TAB PO SCH ×2 (08:59→20:03)
[2023-08-28] MEDS: TAMSULOSIN 0.4 MG CAP.ER.24H PO SCH (08:59)
[2023-08-28] MEDS: FILGRASTIM-SNDZ 480 MCG/0.8 ML SYRINGE SQ SCH (08:59)
[2023-08-28] MEDS: allopurinoL 100 MG TAB PO SCH (08:59)
[2023-08-28] MEDS: CYANOCOBALAMIN 500 MCG TAB PO SCH (08:59)
[2023-08-28 12:11] LABS: Glucose,Whole Blood 101 mg/dL (70-110)
[2023-08-28] MEDS: CEFEPIME 2 GM in SODIUM CHLORIDE 0.9% 100 ML IVPB SCH ×2 (12:12→23:54)
[2023-08-28] MEDS: SODIUM CHLORIDE 0.9% 1,000 ML IV SCH ×2 (12:44→20:03)
[2023-08-28 13:18] LABS: African American GFR (CKD) 83 (>60 ml/min/1.73 sqM); Anion Gap 11 mmol/L; Blood Urea Nitrogen 24 mg/dL (9-20); Calcium 8.1 mg/dL (8.4-10.2); Carbon Dioxide 15 mmol/L (22-30); Chloride 111 mmol/L (98-107); Glucose 101 mg/dL (74-99); Non-African American GFR(CKD) 72 (>60 ml/min/1.73 sqM); Potassium 3.9 mmol/L (3.5-5.1); Sodium 137 mmol/L (137-145)
[2023-08-28 13:27] LABS: Anisocytosis Slight; HCT 29.8 % (39.0-53.0); Hypochromasia Marked; MCV 102.9 fL (80.0-100.0); Macrocytosis Moderate; Mean Platelet Volume 10.4; RBC 2.89 m/uL (4.30-5.90); RDW 17.6 % (11.5-15.5)
[2023-08-28 13:28] LABS: HGB 9.8 gm/dL (13.0-17.5)
[2023-08-28 13:29] LABS: Platelet Count 55 k/uL (150-450)
--- NOTE | 2023-08-28 13:52 | P.PN ---
Subjective Progress Note Date: 08/28/23 Principal diagnosis: pancreatic cancer At today's visit patient is resting comfortably in bed. Patient is reporting persisting bilateral lower ext pain and sacral pain related to pressure ulcer. Also reporting generalized weakness. Denies nausea vomiting diarrhea. Has decreased appetite Objective - Vital Signs Vital signs: Vital Signs Temp 97.9 F 08/28/23 12:00 Pulse 119 H 08/28/23 12:00 Resp 18 08/28/23 12:00 BP 92/54 08/28/23 12:00 Pulse Ox 95 08/28/23 12:00 FiO2 Intake & Output 08/27/23 08/28/23 08/28/23 18:59 06:59 18:59 Intake Total 1556 Output Total 750 Balance 1556 -750 Intake: Intake, IV Titration 700 Amount Cefepime 2 gm In Sodium 100 Chloride 0.9% 100 ml @ 25 mls/hr IVPB Q12H [facility] Rx# :[id number] Sodium Chloride 0.9% 1, 600 000 ml @ 75 mls/hr IV . [id number] [facility] Rx#:[id number] Oral 236 Blood Product 620 Rc As-1 Unit 310 [id number] Output: Urine 750 Other: Voiding Method Indwelling Catheter Indwelling Catheter Indwelling Catheter - Constitutional General appearance: Present: no acute distress - EENT Eyes: Present: anicteric sclerae, EOMI ENT: Present: hearing grossly normal - Respiratory Details: breathing is even and unlabored - Cardiovascular Details: skin is warm and dry - Integumentary Integumentary Comment(s): pressure ulcer to sacrum Integumentary: Absent: cyanotic - Musculoskeletal Musculoskeletal: Present: generalized weakness - Psychiatric Psychiatric: Present: A&O x's 3 - Labs CBC & Chem 7: 08/28/23 12:41 08/28/23 12:41 Labs: Abnormal Lab Results - Last 24 Hours (Table) 08/25/23 08/27/23 08/27/23 Range/Units 17:53 07:32 13:21 RBC (4.30-5.90) m/uL Hgb (13.0-17.5) gm/dL Hct (39.0-53.0) % MCV (80.0-100.0) fL RDW (11.5-15.5) % Chloride (98-107) mmol/L Carbon Dioxide (22-30) mmol/L BUN (9-20) mg/dL Glucose (74-99) mg/dL POC Glucose (mg/dL) (70-110) mg/dL Hemoglobin A1c 7.1 H (<=6.0) % Calcium (8.4-10.2) mg/dL Urine Protein 1+ H (Negative) Urine Ketones Trace H (Negative) Urine Blood Small H (Negative) Urine RBC 7 H (0-5) /hpf Urine Mucus Rare H (None) /hpf Crossmatch See Detail 08/27/23 08/27/23 08/28/23 Range/Units 16:35 20:09 12:41 RBC (4.30-5.90) m/uL Hgb (13.0-17.5) gm/dL Hct (39.0-53.0) % MCV (80.0-100.0) fL RDW (11.5-15.5) % Chloride 111 H (98-107) mmol/L Carbon Dioxide 15 L (22-30) mmol/L BUN 24 H (9-20) mg/dL Glucose 101 H (74-99) mg/dL POC Glucose (mg/dL) 197 H 213 H (70-110) mg/dL Hemoglobin A1c (<=6.0) % Calcium 8.1 L (8.4-10.2) mg/dL Urine Protein (Negative) Urine Ketones (Negative) Urine Blood (Negative) Urine RBC (0-5) /hpf Urine Mucus (None) /hpf Crossmatch 08/28/23 Range/Units 12:41 RBC 2.89 L (4.30-5.90) m/uL Hgb 9.8 L D (13.0-17.5) gm/dL Hct 29.8 L (39.0-53.0) % MCV 102.9 H (80.0-100.0) fL RDW 17.6 H (11.5-15.5) % Chloride (98-107) mmol/L Carbon Dioxide (22-30) mmol/L BUN (9-20) mg/dL Glucose (74-99) mg/dL POC Glucose (mg/dL) (70-110) mg/dL Hemoglobin A1c (<=6.0) % Calcium (8.4-10.2) mg/dL Urine Protein (Negative) Urine Ketones (Negative) Urine Blood (Negative) Urine RBC (0-5) /hpf Urine Mucus (None) /hpf Crossmatch Assessment and Plan (1) Weakness Current Visit: Yes Status: Acute Priority: High Code(s): R53.1 - WEAKNESS SNOMED Code(s): 67420262 (2) Pancytopenia due to antineoplastic chemotherapy Current Visit: Yes Status: Acute Priority: High Code(s): D61.810 - ANTINEOPLASTIC CHEMOTHERAPY INDUCED PANCYTOPENIA; T45.1X5A - ADVERSE EFFECT OF ANTINEOPLASTIC AND IMMUNOSUP DRUGS, INIT SNOMED Code(s): 011096677559194 (3) Pancreatic adenocarcinoma Current Visit: Yes Status: Acute Priority: High Code(s): C25.9 - MALIGNANT NEOPLASM OF PANCREAS, UNSPECIFIED SNOMED Code(s): 614508189 Plan: Weakness: -Due to the effects of chemotherapy, directly, and from cytopenias. Improvement is slow. -Continue supportive care with transfusions as needed, as well as IV hydration. Pancytopenia: -Hemoglobin was 6.9 yest, s/p 1 unit PRBC. Hgb improved today, 9.8. The patient was started on filgrastim. He has not required growth factors as an outpatient so far. WBC improved today to 5.6, ANC and platelets pending. Filgrastim will be d/c -There has been some mild increase in his temperature and chills noted during this admission. Cefepime started empirically, blood culture pending -Please transfuse for hemoglobin less than 7 or if symptomatic and transfuse for platelets less than 10,000 or if symptomatic Pancreatic adenocarcinoma: -Treatment plan will be reviewed and adjusted as appropriate, post discharge, following resolution of the acute issues. Decubitis ulcer: -Follows with wound care outpt -Wound care consult placed
[2023-08-28 14:11] LABS: Band Neutrophils % 6 %; Lymphocytes # (M) 0.36 k/uL (1.0-4.8); Metamyelocytes % 2 %; Monocytes # (M) 0.42 k/uL (0-1.0); Myelocytes # (M) 0.05 k/uL (0); Myelocytes % 1 %; Neutrophils % (M) 77 %; Nucleated Red Blood Cells 8 /100 WBC (0-0); Total Cells Counted 200; WBC 5.2 k/uL (3.8-10.6)
[2023-08-28 14:12] LABS: Crenated RBC Present; Poikilocytosis (M) Present; Toxic Granulation Present
[2023-08-28] MEDS: polyethylene glycoL 3350 17 GM POWD.PACK PO SCH (16:44)
[2023-08-28 16:55] LABS: Glucose,Whole Blood 126 mg/dL (70-110)
[2023-08-28] MEDS: APIXABAN 5 MG TAB PO SCH (20:03)
[2023-08-28] MEDS: PRAVASTATIN SODIUM 20 MG TAB PO SCH (20:03)
[2023-08-28] MEDS: HYDROcodone/APAP 7.5-325MG 1 EACH TAB PO PRN (20:03)
[2023-08-28 20:06] LABS: Glucose,Whole Blood 100 mg/dL (70-110)
[2023-08-29] MEDS: HYDROcodone/APAP 7.5-325MG 1 EACH TAB PO PRN ×2 (05:06→12:14)
[2023-08-29 06:02] LABS: Glucose,Whole Blood 103 mg/dL (70-110)
[2023-08-29] MEDS: MIDODRINE 5 MG TAB PO SCH ×3 (06:42→16:50)
--- NOTE | 2023-08-29 07:27 | XR ---
EXAMINATION TYPE: XR chest 1V DATE OF EXAM: 08/29/2023 7:19 AM COMPARISON: Chest radiographs from 523 TECHNIQUE: XR chest 1V Frontal view of the chest. CLINICAL INDICATION:Male, 68 years old with history of atelectasis; FINDINGS: Lungs/Pleura: There is no evidence of pleural effusion, focal consolidation, or pneumothorax. Elevat ion the right hemidiaphragm. Redemonstration of linear atelectasis within the right mid to lower lung zone. Pulmonary vascularity: Unremarkable. Heart/mediastinum: Cardiomediastinal silhouette is enlarged and stable. Atherosclerotic calcificatio ns are seen in the aorta. Musculoskeletal: No acute osseous pathology. Other findings: None Lines/Tubes: Stable right IJ Mediport catheter. IMPRESSION: Chronic changes without evidence for acute process.
[2023-08-29] MEDS: APIXABAN 5 MG TAB PO SCH ×2 (08:46→19:48)
[2023-08-29] MEDS: CYANOCOBALAMIN 500 MCG TAB PO SCH (08:46)
[2023-08-29] MEDS: allopurinoL 100 MG TAB PO SCH (08:46)
[2023-08-29] MEDS: FUROSEMIDE 40 MG TAB PO SCH (08:46)
[2023-08-29] MEDS: METOPROLOL TARTRATE 25 MG TAB PO SCH ×3 (08:46→16:50)
[2023-08-29] MEDS: TAMSULOSIN 0.4 MG CAP.ER.24H PO SCH (08:46)
[2023-08-29] MEDS: polyethylene glycoL 3350 17 GM POWD.PACK PO SCH (08:47)
[2023-08-29] MEDS: HYDROmorphone 1 MG/ML 1 ML SYRINGE IVP PRN ×2 (08:47→14:41)
[2023-08-29] MEDS: CEFEPIME 2 GM in SODIUM CHLORIDE 0.9% 100 ML IVPB SCH ×2 (08:47→16:50)
[2023-08-29 08:51] LABS: African American GFR (CKD) 75 (>60 ml/min/1.73 sqM); Anion Gap 12 mmol/L; Blood Urea Nitrogen 24 mg/dL (9-20); Calcium 8.3 mg/dL (8.4-10.2); Carbon Dioxide 15 mmol/L (22-30); Chloride 111 mmol/L (98-107); Glucose 98 mg/dL (74-99); Non-African American GFR(CKD) 65 (>60 ml/min/1.73 sqM); Potassium 3.8 mmol/L (3.5-5.1); Sodium 138 mmol/L (137-145)
--- NOTE | 2023-08-29 09:59 | P.CONS ---
History of Present Illness - Reason for Consult Consult date: 08/29/23 wound care - History of Present Illness This is a 68-year-old patient who lives on his own who suffered a fall prior to hospitalization. Patient has a stage III pressure ulcer to the sacrum measuring approximately 1.2 x 1.2 x 0.4 cm with eschar and minimal slough noted. Undermining noted throughout the wound edge. Patient has a nonhealing ulceration to the right great toe medial aspect measuring 1 x 1.5 x 0.2 with sig nificant amount of eschar in place. Patient's past medical history significant for atrial fibrillation, chest pain, diabetes mellitus, hyperlipidemia, hypertension, Review Of Systems: Constitutional: No fever, no chills, no night sweats. No weight change. No weakness, fatigue or lethargy. No daytime sleepiness. Integumentary:reports wounds, no lesions. No rash or pruritus. No unusual bruising. No change in hair or nails. Physical exam: General Appearance: Alert, cooperative, no distress, appears stated age. Skin: See HPI all other Skin color, texture, tugor normal, no rashes or lesions. Neurologic: Alert oriented x3 Assessment: 1. Stage III pressure ulcer sacrum 2. Nonhealing ulceration other part of right foot with fatty layer exposure Plan: 1.Sacrum: Apply Santyl, saline moistened gauze and border foam. Right great toe: Apply Santyl, feeling was gauze, dry gauze, rolled gauze and secure with tape. Change daily. Utilize a airfield cushion while sitting. Turn patient every 2 hours. Thank you for the consultation any questions please contact the wound care center DNP note has been reviewed and discussed with Dr. Kumar and the impression and plan of care has been directed as dictated. Past Medical History Past Medical History: Atrial Fibrillation, Cancer, Chest Pain / Angina, Diabetes Mellitus, Hyperlipidemia, Hypertension, Musculoskeletal Disorder, Osteoarthritis (OA) Additional Past Medical History / Comment(s): BACK PAIN R/T OLD INJURY. kidney stones, Recent diagnosis of Pancreatic tumor. History of Any Multi-Drug Resistant Organisms: None Reported Past Surgical History: Back Surgery, Heart Catheterization, Heart Catheterization With Stent, Orthopedic Surgery Additional Past Surgical History / Comment(s): R Knee scope; Colonoscopy; Deviated Septum Repair. BACK SURG.X2 PTCA W/ STENTS X2. CARDIOVERSION 03/28/18. ERCP last week with Dr. Morfin out of [facility] with stent placement. Past Anesthesia/Blood Transfusion Reactions: No Reported Reaction Date of Last Stent Placement:: 1997 Past Psychological History: No Psychological Hx Reported Smoking Status: Former smoker - Past Family History Mother Family Medical History: Dementia, Memory Impairment Additional Family Medical History / Comment(s): Mother in her 80s r/t advanced dementia. Father Family Medical History: Myocardial Infarction ([place]) Additional Family Medical History / Comment(s): Father from coronary artery disease. Sister(s) Additional Family Medical History / Comment(s): Patient has 3 sisters one past from CVA. One has coronary artery disease with stent in 1 has no major medical problems. Patient is not having any children. Patient does not have any brothers. Medications and Allergies Home Medications Medication Instructions Recorded Confirmed Type Apixaban [Eliquis] 5 mg PO BID 03/20/18 08/25/23 History Cyanocobalamin (Vitamin B-12) 1,000 mcg PO DAILY 03/20/18 08/25/23 History [Vitamin B-12] Cyclobenzaprine [Flexeril] 10 mg PO HS PRN 03/20/18 08/25/23 History Isosorbide Mononitrate ER [Imdur] 30 mg PO DAILY 03/20/18 08/25/23 History Nitroglycerin Sl Tabs [Nitrostat] 0.4 mg SUBLINGUAL Q5M PRN 03/20/18 08/25/23 History Pravastatin Sodium [Pravachol] 20 mg PO HS 12/13/19 08/25/23 History Cholecalciferol [Vitamin D3 (25 50 mcg PO DAILY 10/13/22 08/25/23 History Mcg = 1000 Iu)] Furosemide [Lasix] 40 mg PO DAILY 10/20/22 08/25/23 History Diphenoxylate HCl/Atropine 2 tab PO QID PRN 07/10/23 08/25/23 History [Lomotil 2.5-0.025 mg Tablet] Insulin Degludec [Tresiba 10 units SQ DAILY 07/10/23 08/25/23 History Flextouch U-100 Pen] allopurinoL [Zyloprim] 100 mg PO DAILY 07/10/23 08/25/23 History Acetaminophen Tab [Tylenol] 650 mg PO Q6HR PRN tab 07/14/23 08/25/23 Rx Metoprolol Tartrate [Lopressor] 100 mg PO BID 30 Days #120 tab 07/14/23 08/25/23 Rx Midodrine [ProAmatine] 5 mg PO AC-BID 30 Days #60 tab 07/14/23 08/25/23 Rx Tamsulosin [Flomax] 0.4 mg PO PC-BRKFST #30 cap 07/14/23 08/25/23 Rx HYDROcodone/APAP 7.5-325MG [[place] 1 - 2 tab PO Q6H PRN 08/25/23 08/25/23 History 7.5-325] Allergies Allergy/AdvReac Type Severity Reaction Status Date / Time morphine Allergy Swelling Verified 08/25/23 16:42 Physical Exam Vitals: Vital Signs Temp Pulse Resp BP Pulse Ox 08/29/23 08:11 97.3 F L 138 H 16 101/69 95 08/29/23 07:45 138 H 16 08/29/23 04:00 126 H 16 106/61 96 08/29/23 01:46 16 08/28/23 23:53 113 H 16 100/64 95 08/28/23 20:00 97.6 F 120 H 18 105/63 94 L 08/28/23 16:00 98.2 F 110 H 18 99/65 94 L 08/28/23 14:00 119 H 18 08/28/23 12:00 97.9 F 119 H 18 92/54 95 Intake and Output 08/28/23 08/29/23 08/29/23 22:59 06:59 14:59 Intake Total 110 Output Total 300 200 Balance -300 -200 110 Intake: Oral 110 Output: Urine 300 200 Other: Voiding Method Indwelling Catheter Indwelling Catheter Indwelling Catheter Results CBC & Chem 7: 08/28/23 12:41 08/29/23 08:05 Labs: Abnormal Lab Results - Last 24 Hours (Table) 08/28/23 08/28/23 08/28/23 Range/Units 12:41 12:41 16:39 RBC 2.89 L (4.30-5.90) m/uL Hgb 9.8 L D (13.0-17.5) gm/dL Hct 29.8 L (39.0-53.0) % MCV 102.9 H (80.0-100.0) fL RDW 17.6 H (11.5-15.5) % Plt Count 55 L D (150-450) k/uL Lymphocytes # (Manual) 0.36 L (1.0-4.8) k/uL Metamyelocytes # (Man) 0.10 H (0) k/uL Myelocytes # (Manual) 0.05 H (0) k/uL Nucleated RBCs 8 H (0-0) /100 WBC Chloride 111 H (98-107) mmol/L Carbon Dioxide 15 L (22-30) mmol/L BUN 24 H (9-20) mg/dL Glucose 101 H (74-99) mg/dL POC Glucose (mg/dL) 126 H (70-110) mg/dL Calcium 8.1 L (8.4-10.2) mg/dL 08/29/23 Range/Units 08:05 RBC (4.30-5.90) m/uL Hgb (13.0-17.5) gm/dL Hct (39.0-53.0) % MCV (80.0-100.0) fL RDW (11.5-15.5) % Plt Count (150-450) k/uL Lymphocytes # (Manual) (1.0-4.8) k/uL Metamyelocytes # (Man) (0) k/uL Myelocytes # (Manual) (0) k/uL Nucleated RBCs (0-0) /100 WBC Chloride 111 H (98-107) mmol/L Carbon Dioxide 15 L (22-30) mmol/L BUN 24 H (9-20) mg/dL Glucose (74-99) mg/dL POC Glucose (mg/dL) (70-110) mg/dL Calcium 8.3 L (8.4-10.2) mg/dL Microbiology - Last 24 Hours (Table) 08/27/23 11:33 Blood Culture - Preliminary Blood Assessment and Plan (1) Pressure ulcer of sacral region, stage 3 Current Visit: Yes Status: Acute Code(s): L89.153 - PRESSURE ULCER OF SACRAL REGION, STAGE 3 SNOMED Code(s): 61994842509475 (2) Non-pressure chronic ulcer of other part of right foot with fat layer exposed Current Visit: Yes Status: Acute Code(s): L97.512 - NON-PRS CHRONIC ULCER OTH PRT RIGHT FOOT W FAT LAYER EXPOSED SNOMED Code(s): 41865543907702458
[2023-08-29 11:22] LABS: Glucose,Whole Blood 97 mg/dL (70-110)
[2023-08-29 12:08] LABS: Anisocytosis Slight; HCT 28.4 % (39.0-53.0); HGB 9.4 gm/dL (13.0-17.5); Hypochromasia Slight; MCH 33.8 pg (25.0-35.0); MCHC 33.2 g/dL (31.0-37.0); MCV 101.7 fL (80.0-100.0); Macrocytosis Moderate; Mean Platelet Volume 9.8; Poikilocytosis Slight; RBC 2.79 m/uL (4.30-5.90); RDW 18.3 % (11.5-15.5)
[2023-08-29 12:17] LABS: Platelet Count 103 k/uL (150-450)
[2023-08-29 13:52] LABS: Band Neutrophils % 4 %; Eosinophils # (M) 0.18 k/uL (0-0.7); Metamyelocytes # (M) 0.53 k/uL (0); Metamyelocytes % 3 %; Myelocytes % 4 %; Neutrophils % (M) 77 %; Nucleated Red Blood Cells 1 /100 WBC (0-0); Total Cells Counted 200
[2023-08-29 13:53] LABS: Monocytes # (M) 1.58 k/uL (0-1.0); WBC 17.6 k/uL (3.8-10.6)
[2023-08-29 13:54] LABS: Polychromasia Present; Toxic Granulation Present
--- NOTE | 2023-08-29 14:46 | P.CRDCN ---
History of Present Illness Consult date: 08/29/23 Consult reason: atrial fibrillation (With RVR) History of present illness: History of present illness: This is a 68-year-old male patient of Dr. FELI Michael with past medical history of ischemic cardiomyopathy, coronary artery disease status post PCI in 1996, hypertension, mitral regurgitation, hyperlipidemia, remote history of tobacco use and dependence, persistent atrial fibrillation on eliquis, pancreatic cancer. Patient was previously evaluated for AICD implantation but was canceled due to the diagnosis of pancreatic cancer. Patient did have a hospitalization after starting chemotherapy and was dehydrated with diarrhea and subsequently had V. tach V. fib arrest with ROSC after 36 minutes of CPR and multiple shocks in January 2023. We have been asked to evaluate the patient for A. fib with RVR. Patient presented to the hospital due to acute kidney injury, chemotherapy induced pancytopenia and no pressure ulcer. Patient states that he was sitting in a chair was slid off and then was unable to get up for a long period of time. His CK was surprisingly normal on arrival. Patient does have chronic lower extremity edema. Telemetry is atrial fibrillation [id number] bpm WBC 17.6 and initially 0.3, hemoglobin 9.4 and initially 6.2. Platelet count 103. Potassium 3.8, BUN 24 creatinine 1.16 improved from 2.5. Urinalysis with slight blood. Home cardiac medications: Eliquis 5 mg twice daily, Lasix 40 mg daily, Imdur 30 mg daily, Lopressor 100 mg twice daily, Nitrostat as needed, pravastatin 29 g at bedtime, midodrine 5 mg twice daily Echocardiogram performed 07/11/23 revealed mildly increased left ventricular wall thickness. EF 25-30%, moderate aortic calcification however no significant aortic valve stenosis. Mild aortic insufficiency. Moderate mitral regurgitation. RVSP 42. Lexiscan stress test EF 30%, fixed inferior wall defect with no reversible ischemia performed 08/09/2021 in the office. Review Of Systems: At the time of my evaluation: Constitutional: No fever, no chills. + weakness, + fatigue. EENT: No headache. No dizziness. Lungs: No shortness of breath, cough, no sputum production. No wheezing. Cardiovascular: No chest pain, no lower extremity edema. No palpitations. No paroxysmal nocturnal dyspnea. No orthopnea. No lightheadedness or dizziness. No syncopal episodes. Abdominal: No abdominal pain. No nausea, vomiting. No diarrhea. No constipation. No bloody or tarry stools. Genitourinary: No dysuria.. No urinary retention. Musculoskeletal: No myalgias. + muscle weakness, no frequent falls. No back pain. No neck pain. Integumentary: No wounds. No rash. No unusual bruising. Neurologic: No aphasia. No facial droop. No change in mentation. No head injury. No headache. Physical examination: Gen: This is a 68 year old male sitting in chair and appears to be comfortable no acute distress. VS: reviewed HEENT: Head is atraumatic, normocephalic. Pupils equal, round. Sclerae is anicteric. NECK: Supple. No JVD. . LUNGS: Clear to auscultation. No wheezes or rhonchi. No intercostal retractions. HEART: Irregular rate and rhythm. No murmur. Tachycardic ABDOMEN: Soft No tenderness. EXTREMITIES: Mild bilateral pedal edema. No calf tenderness. NEUROLOGICAL: Patient is awake, alert and oriented x3. Assessment: Persistent atrial fibrillation with RVR Acute kidney injury Thrombocytopenia Pancreatic cancer Ischemic cardiomyopathy Coronary artery disease with PCI in 1996 Hypertension Hyperlipidemia Plan: Continue eliquis Noted that patient's medications at been adjusted from home due to hypotension. Lopressor has been resumed at 25 mg twice daily, increase this to 3 times daily No need to repeat echocardiogram Further recommendations to follow based upon clinical course Thank you kindly for this consultation. Nurse practitioner note has been reviewed, I agree with documented findings and plan of care. Patient was seen and examined. Past Medical History Past Medical History: Atrial Fibrillation, Cancer, Chest Pain / Angina, Diabetes Mellitus, Hyperlipidemia, Hypertension, Musculoskeletal Disorder, Osteoarthritis (OA) Additional Past Medical History / Comment(s): BACK PAIN R/T OLD INJURY. kidney stones, Recent diagnosis of Pancreatic tumor. History of Any Multi-Drug Resistant Organisms: None Reported Past Surgical History: Back Surgery, Heart Catheterization, Heart Catheterization With Stent, Orthopedic Surgery Additional Past Surgical History / Comment(s): R Knee scope; Colonoscopy; Deviated Septum Repair. BACK SURG.X2 PTCA W/ STENTS X2. CARDIOVERSION 03/28/18. ERCP last week with Dr. Morfin out of [facility] with stent placement. Past Anesthesia/Blood Transfusion Reactions: No Reported Reaction Date of Last Stent Placement:: 1997 Past Psychological History: No Psychological Hx Reported Smoking Status: Former smoker - Past Family History Mother Family Medical History: Dementia, Memory Impairment Additional Family Medical History / Comment(s): Mother in her 80s r/t advanced dementia. Father Family Medical History: Myocardial Infarction ([place]) Additional Family Medical History / Comment(s): Father from coronary artery disease. Sister(s) Additional Family Medical History / Comment(s): Patient has 3 sisters one past from CVA. One has coronary artery disease with stent in 1 has no major medical problems. Patient is not having any children. Patient does not have any brothers. Medications and Allergies Home Medications Medication Instructions Recorded Confirmed Type Apixaban [Eliquis] 5 mg PO BID 03/20/18 08/25/23 History Cyanocobalamin (Vitamin B-12) 1,000 mcg PO DAILY 03/20/18 08/25/23 History [Vitamin B-12] Cyclobenzaprine [Flexeril] 10 mg PO HS PRN 03/20/18 08/25/23 History Isosorbide Mononitrate ER [Imdur] 30 mg PO DAILY 03/20/18 08/25/23 History Nitroglycerin Sl Tabs [Nitrostat] 0.4 mg SUBLINGUAL Q5M PRN 03/20/18 08/25/23 History Pravastatin Sodium [Pravachol] 20 mg PO HS 12/13/19 08/25/23 History Cholecalciferol [Vitamin D3 (25 50 mcg PO DAILY 10/13/22 08/25/23 History Mcg = 1000 Iu)] Furosemide [Lasix] 40 mg PO DAILY 10/20/22 08/25/23 History Diphenoxylate HCl/Atropine 2 tab PO QID PRN 07/10/23 08/25/23 History [Lomotil 2.5-0.025 mg Tablet] Insulin Degludec [Tresiba 10 units SQ DAILY 07/10/23 08/25/23 History Flextouch U-100 Pen] allopurinoL [Zyloprim] 100 mg PO DAILY 07/10/23 08/25/23 History Acetaminophen Tab [Tylenol] 650 mg PO Q6HR PRN tab 07/14/23 08/25/23 Rx Metoprolol Tartrate [Lopressor] 100 mg PO BID 30 Days #120 tab 07/14/23 08/25/23 Rx Midodrine [ProAmatine] 5 mg PO AC-BID 30 Days #60 tab 07/14/23 08/25/23 Rx Tamsulosin [Flomax] 0.4 mg PO PC-BRKFST #30 cap 07/14/23 08/25/23 Rx HYDROcodone/APAP 7.5-325MG [[place] 1 - 2 tab PO Q6H PRN 08/25/23 08/25/23 History 7.5-325] Allergies Allergy/AdvReac Type Severity Reaction Status Date / Time morphine Allergy Swelling Verified 08/25/23 16:42 Physical Exam Vitals: Vital Signs Temp Pulse Resp BP Pulse Ox 08/29/23 11:44 97.8 F 134 H 16 97/62 99 08/29/23 08:11 97.3 F L 138 H 16 101/69 95 08/29/23 07:45 138 H 16 08/29/23 04:00 126 H 16 106/61 96 08/29/23 01:46 16 08/28/23 23:53 113 H 16 100/64 95 08/28/23 20:00 97.6 F 120 H 18 105/63 94 L 08/28/23 16:00 98.2 F 110 H 18 99/65 94 L Intake and Output 08/28/23 08/29/23 08/29/23 22:59 06:59 14:59 Intake Total 110 Output Total 300 200 Balance -300 -200 110 Intake: Oral 110 Output: Urine 300 200 Other: Voiding Method Indwelling Catheter Indwelling Catheter Indwelling Catheter Results 08/29/23 11:40 08/29/23 08:05 CBC 08/29/23 Range/Units 11:40 WBC 17.6 H (3.8-10.6) k/uL RBC 2.79 L (4.30-5.90) m/uL Hgb 9.4 L (13.0-17.5) gm/dL Hct 28.4 L (39.0-53.0) % Plt Count 103 L D (150-450) k/uL Comprehensive Metabolic Panel 08/29/23 Range/Units 08:05 Sodium 138 (137-145) mmol/L Potassium 3.8 (3.5-5.1) mmol/L Chloride 111 H (98-107) mmol/L Carbon Dioxide 15 L (22-30) mmol/L BUN 24 H (9-20) mg/dL Creatinine 1.16 (0.66-1.25) mg/dL Glucose 98 (74-99) mg/dL Calcium 8.3 L (8.4-10.2) mg/dL Current Medications Generic Name Dose Route Start Last Admin Trade Name Freq PRN Reason Stop Dose Admin Acetaminophen 650 mg 08/25/23 20:53 08/27/23 13:01 Acetaminophen Tab 325 Mg Tab PO 650 mg Q6HR PRN Administration Mild Pain or Fever > 100.5 Hydrocodone Bitart/Acetaminophen 1 each 08/28/23 18:34 08/29/23 12:14 Hydrocodone/Apap 7.5-325mg 1 Each Tab PO 1 each Q6H PRN Administration Pain Allopurinol 100 mg 08/26/23 09:00 08/29/23 08:46 Allopurinol 100 Mg Tab PO 100 mg DAILY ANDREW Administration Apixaban 5 mg 08/28/23 21:00 08/29/23 08:46 Apixaban 5 Mg Tab PO 5 mg BID ANDREW Administration Protocol Collagenase 1 applic 08/29/23 10:00 Collagenase 250 Unit/Gm Ointment 30 Gm Tube TOPICAL DAILY [facility] Protocol Cyanocobalamin 1,000 mcg 08/26/23 09:00 08/29/23 08:46 Cyanocobalamin 500 Mcg Tab PO 1,000 mcg DAILY ANDREW Administration Dextrose/Water 25 ml 08/26/23 06:14 Dextrose 50% Syringe 50 Ml IVP PER PROTOCOL PRN Hypoglycemia Protocol Dextrose/Water 50 ml 08/26/23 06:14 08/26/23 06:22 Dextrose 50% Syringe 50 Ml IVP 50 ml PER PROTOCOL PRN Administration Hypoglycemia Protocol Diphenoxylate HCl/Atropine 2 each 08/25/23 20:53 08/26/23 05:19 Diphenox-Atrop 2.5-0.025 Mg 1 Each Tab PO 2 each QID PRN Administration Diarrhea Furosemide 40 mg 08/29/23 09:00 08/29/23 08:46 Furosemide 40 Mg Tab PO 40 mg DAILY ANDREW Administration Hydromorphone HCl 1 mg 08/25/23 17:15 08/29/23 08:47 Hydromorphone 1 Mg/Ml 1 Ml Syringe IVP 1 mg Q3HR PRN Administration Severe Pain (Scale 7 to 10) Sodium Chloride 1,000 mls @ 75 mls/hr 08/25/23 17:15 08/28/23 20:03 Saline 0.9% IV 75 mls/hr .[id number] ANDREW Administration Cefepime HCl 2 gm/ Sodium 100 mls @ 25 mls/hr 08/29/23 00:00 08/29/23 08:47 Chloride IVPB 25 mls/hr Q8HR ANDREW Administration Protocol Metoprolol Tartrate 25 mg 08/29/23 13:00 08/29/23 12:58 Metoprolol Tartrate 25 Mg Tab PO 25 mg TID ANDREW Administration Midodrine 10 mg 08/29/23 17:30 Midodrine 5 Mg Tab PO AC-TID ANDREW Naloxone HCl 0.2 mg 08/25/23 17:15 Naloxone 0.4 Mg/Ml 1 Ml Vial IV Q2M PRN Opioid Reversal Nitroglycerin 0.4 mg 08/25/23 20:53 Nitroglycerin Sl Tabs 0.4 Mg Tab SUBLINGUAL Q5M PRN Chest Pain Ondansetron HCl 4 mg 08/25/23 17:15 Ondansetron 4 Mg/2 Ml Vial IVP Q8HR PRN Nausea And Vomiting Polyethylene Glycol 17 gm 08/28/23 15:15 08/29/23 08:47 Polyethylene Glycol 3350 17 Gm Powd.Pack PO 17 gm DAILY ANDREW Administration Pravastatin Sodium 20 mg 08/25/23 21:00 08/28/23 20:03 Pravastatin Sodium 20 Mg Tab PO 20 mg HS ANDREW Administration Tamsulosin HCl 0.4 mg 08/26/23 08:30 08/29/23 08:46 Tamsulosin 0.4 Mg Cap.Er.24h PO 0.4 mg PC-BRKFST ANDREW Administration Intake and Output 08/28/23 08/29/23 08/29/23 22:59 06:59 14:59 Intake Total 110 Output Total 300 200 Balance -300 -200 110 Intake: Oral 110 Output: Urine 300 200 Other: Voiding Method Indwelling Catheter Indwelling Catheter Indwelling Catheter 08/29/23 11:40 08/29/23 08:05
[2023-08-29 16:13] LABS: Glucose,Whole Blood 92 mg/dL (70-110)
[2023-08-29] MEDS: SODIUM CHLORIDE 0.9% 1,000 ML IV SCH (17:24)
[2023-08-29] MEDS: PRAVASTATIN SODIUM 20 MG TAB PO SCH (19:48)
--- NOTE | 2023-08-29 23:00 | P.PN ---
Subjective Progress Note Date: 08/28/23 Patient is a 68-year-old male with a known history of pancreatic cancer currently on chemotherapy last dose about a week ago, hypertension, hyperlipidemia, diabetes type 2, atrial fibrillation on anticoagulation with Eliquis, coronary artery disease history of stent placement and prior history of smoking was brought to the hospital by EMS. Patient states that last night around 2 AM he was trying to sit in the chair but slipped onto the floor. He tried to get up but the chair slid away. Patient was unable to get up from the floor and called for help. Patient crawled upstairs and injured his left foot/toe while going up. Finally he was able to get hold of someone to help this morning. Patient has been having generalized weakness. Denies any headache or dizziness. Denies any hitting head his head. No complaints of chest pain or shortness of breath. Patient does have left lower swelling on and off for the past few months. No nausea vomiting or abdominal pain or diarrhea. No fever no chills. Chest x-ray showed no acute pulmonary process. CT head and cervical spine showed mild cerebral atrophy. Old lacunar infarct right basal ganglia. No acute intracranial abnormality seen. No acute fracture or malalignment of the cervical spine. Moderate spondylitic changes especially C5-C7 levels. Severe bilateral neuroforaminal stenosis C6- C7. Moderate spinal canal stenosis at this level. Pelvic x-ray showed no acute osseous abnormality of the pelvis. Laboratory data showed WBC 0.3, hemoglobin 6.2, MCV 104.3 and platelets 12 INR 2.7, BUN 45 and creatinine 2.5, bicarb is 16, blood sugar is 111, lactic acid 3.2, total bilirubin level is 1.4 AST 64 ALT 37 alk phos 91, CK1 43, troponin 0.013, albumin 2.6 and TSH level is 0.765. 08/26/2023 Patient is lying in the bed. Awake alert and oriented x3. Feels little better. No complaints of chest pain or shortness of breath. Pain is controlled. No headache or dizziness or lightheadedness. Laboratory data showed WBC 0.4, hemoglobin 8.5 and platelets 18, BUN 45 and creatinine 1.92. Magnesium 1.9 total bilirubin was 1.7 AST 90 ALT 57 alk phos 81. Albumin 2.5. Patient has been afebrile. Blood pressure is 108/63. Currently on 2 L oxygen via nasal cannula. 08/27/2023 Patient is currently resting in the bed. Awake alert and oriented x3. Still having generalized weakness but slightly better. Patient does have poor oral intake. Patient was having temperature Tmax 100.0 early in the morning today. Patient was also tachycardic at this time. Urinalysis is negative for infection. Chest x-ray showed mild platelike atelectasis on the right. Otherwise no interval change. Patient is IV hydration with normal saline at 75 cc/h. Laboratory data showed WBC 0.5 hemoglobin 6.9. Platelets 22 BUN 48 and creatinine 1.43 and A1c level was 7.1. Urinalysis showed trace ketones small blood and negative leukocyte esterase. Blood sugar is fairly controlled. 08/28/2023 Patient is currently in the bed. Awake alert oriented x3. Does have generalized weakness and is also loss of appetite and very minimal oral intake. Patient is also complaining of bilateral lower extremity pain. Denies any nausea or vomiting. No fever. Chest x-ray done yesterday showed mild platelike atelectasis on the right. Otherwise no significant interval change. Laboratory data showed WBC improved to 5.2 hemoglobin 9.8 and platelets 55., Sodium 137 potassium 3.9 chloride 109 bicarb is 15 BUN 24 and creatinine 1.07 and blood sugar is 101. Calcium 8.1. Patient was started on cefepime. Blood cultures pending at this time. Current medications reviewed. Objective - Vital Signs Vital signs: Vital Signs Temp 98.2 F 08/28/23 16:00 Pulse 110 H 08/28/23 16:00 Resp 18 08/28/23 16:00 BP 99/65 08/28/23 16:00 Pulse Ox 94 L 08/28/23 16:00 FiO2 Intake & Output 08/27/23 08/28/23 08/28/23 18:59 06:59 18:59 Intake Total 1556 118 Output Total 750 300 Balance 7161 -659 -460 Intake: Intake, IV Titration 700 Amount Cefepime 2 gm In Sodium 100 Chloride 0.9% 100 ml @ 25 mls/hr IVPB Q12H ANDREW Rx# :[id number] Sodium Chloride 0.9% 1, 600 000 ml @ 75 mls/hr IV . [id number] ANDREW Rx#:[id number] Oral 236 118 Blood Product 620 Rc As-1 Unit 310 [id number] Output: Urine 750 300 Other: Voiding Method Indwelling Catheter Indwelling Catheter Indwelling Catheter - Exam PHYSICAL EXAMINATION: Patient is lying in the bed , no acute distress, awake alert and oriented.. HEENT: Normocephalic. Neck is supple. Pupils reactive. Nostrils clear. Oral cavity is moist. Neck reveals no JVD, carotid bruits, or thyromegaly. CHEST EXAMINATION: Trachea is central. Symmetrical expansion. Bibasilar diminished sounds.. CARDIAC: Normal S1, S2 with no gallops. No murmurs ABDOMEN: Soft. Bowel sounds present. Mild epigastric tenderness. No guarding or rigidity.. No organomegaly. No abdominal bruits. Extremities: Patient does have left lower extremity 2+ swelling. Left great toe wound which is wrapped with gauze. No active bleeding.. No clubbing or cyanosis Neurologically awake, alert, oriented x3 with well-coordinated movements. No gross focal deficits noted Skin: No rash or skin lesions. Psychiatric: Coperative. Nonsuicidal, Musculoskeletal: No joint swelling or deformity. - Labs CBC & Chem 7: 08/29/23 11:40 08/29/23 08:05 Labs: Abnormal Lab Results - Last 24 Hours (Table) 08/27/23 08/28/23 08/28/23 Range/Units 20:09 12:41 12:41 RBC 2.89 L (4.30-5.90) m/uL Hgb 9.8 L D (13.0-17.5) gm/dL Hct 29.8 L (39.0-53.0) % MCV 102.9 H (80.0-100.0) fL RDW 17.6 H (11.5-15.5) % Plt Count 55 L D (150-450) k/uL Lymphocytes # (Manual) 0.36 L (1.0-4.8) k/uL Metamyelocytes # (Man) 0.10 H (0) k/uL Myelocytes # (Manual) 0.05 H (0) k/uL Nucleated RBCs 8 H (0-0) /100 WBC Chloride 111 H (98-107) mmol/L Carbon Dioxide 15 L (22-30) mmol/L BUN 24 H (9-20) mg/dL Glucose 101 H (74-99) mg/dL POC Glucose (mg/dL) 213 H (70-110) mg/dL Calcium 8.1 L (8.4-10.2) mg/dL 08/28/23 Range/Units 16:39 RBC (4.30-5.90) m/uL Hgb (13.0-17.5) gm/dL Hct (39.0-53.0) % MCV (80.0-100.0) fL RDW (11.5-15.5) % Plt Count (150-450) k/uL Lymphocytes # (Manual) (1.0-4.8) k/uL Metamyelocytes # (Man) (0) k/uL Myelocytes # (Manual) (0) k/uL Nucleated RBCs (0-0) /100 WBC Chloride (98-107) mmol/L Carbon Dioxide (22-30) mmol/L BUN (9-20) mg/dL Glucose (74-99) mg/dL POC Glucose (mg/dL) 126 H (70-110) mg/dL Calcium (8.4-10.2) mg/dL Assessment and Plan Assessment: Generalized weakness and slid onto the floor while getting into the chair. Denies any hitting his head. Pancytopenia likely due to chemotherapy, improving Pancreatic tumor. Recently diagnosed currently undergoing chemotherapy last dose about a week ago Acute kidney injury on CKD stage III with creatinine level 2.5 on admission. Baseline 1.7. Lactic acidosis, improved Moderate to severe protein calorie malnutrition Coronary artery history of stent placement Paroxysmal atrial fibrillation on anticoagulation with Eliquis. Prior history of cardioversion. Hypertension Diabetes type 2 insulin-dependent Hyperlipidemia Osteoarthritis Prior history of smoking DVT prophylaxis patient is already on Eliquis Plan: Patient will be continued IV hydration with normal saline at 75 cc/h.. Patient is status post 2 units of PRBC. Hemoglobin is stable and WBC improving. Pain management with IV Dilaudid and added [place]. Continue home medications including midodrine.. Wound care consult Patient is on cefepime and follow-up blood cultures. Oncology is on board.. Prognosis is guarded. PT OT will be consulted. Time with Patient: Greater than 30
--- NOTE | 2023-08-29 23:03 | P.PN ---
Subjective Progress Note Date: 08/29/23 Patient is a 68-year-old male with a known history of pancreatic cancer currently on chemotherapy last dose about a week ago, hypertension, hyperlipidemia, diabetes type 2, atrial fibrillation on anticoagulation with Eliquis, coronary artery disease history of stent placement and prior history of smoking was brought to the hospital by EMS. Patient states that last night around 2 AM he was trying to sit in the chair but slipped onto the floor. He tried to get up but the chair slid away. Patient was unable to get up from the floor and called for help. Patient crawled upstairs and injured his left foot/toe while going up. Finally he was able to get hold of someone to help this morning. Patient has been having generalized weakness. Denies any headache or dizziness. Denies any hitting head his head. No complaints of chest pain or shortness of breath. Patient does have left lower swelling on and off for the past few months. No nausea vomiting or abdominal pain or diarrhea. No fever no chills. Chest x-ray showed no acute pulmonary process. CT head and cervical spine showed mild cerebral atrophy. Old lacunar infarct right basal ganglia. No acute intracranial abnormality seen. No acute fracture or malalignment of the cervical spine. Moderate spondylitic changes especially C5-C7 levels. Severe bilateral neuroforaminal stenosis C6- C7. Moderate spinal canal stenosis at this level. Pelvic x-ray showed no acute osseous abnormality of the pelvis. Laboratory data showed WBC 0.3, hemoglobin 6.2, MCV 104.3 and platelets 12 INR 2.7, BUN 45 and creatinine 2.5, bicarb is 16, blood sugar is 111, lactic acid 3.2, total bilirubin level is 1.4 AST 64 ALT 37 alk phos 91, CK1 43, troponin 0.013, albumin 2.6 and TSH level is 0.765. 08/26/2023 Patient is lying in the bed. Awake alert and oriented x3. Feels little better. No complaints of chest pain or shortness of breath. Pain is controlled. No headache or dizziness or lightheadedness. Laboratory data showed WBC 0.4, hemoglobin 8.5 and platelets 18, BUN 45 and creatinine 1.92. Magnesium 1.9 total bilirubin was 1.7 AST 90 ALT 57 alk phos 81. Albumin 2.5. Patient has been afebrile. Blood pressure is 108/63. Currently on 2 L oxygen via nasal cannula. 08/27/2023 Patient is currently resting in the bed. Awake alert and oriented x3. Still having generalized weakness but slightly better. Patient does have poor oral intake. Patient was having temperature Tmax 100.0 early in the morning today. Patient was also tachycardic at this time. Urinalysis is negative for infection. Chest x-ray showed mild platelike atelectasis on the right. Otherwise no interval change. Patient is IV hydration with normal saline at 75 cc/h. Laboratory data showed WBC 0.5 hemoglobin 6.9. Platelets 22 BUN 48 and creatinine 1.43 and A1c level was 7.1. Urinalysis showed trace ketones small blood and negative leukocyte esterase. Blood sugar is fairly controlled. 08/28/2023 Patient is currently in the bed. Awake alert oriented x3. Does have generalized weakness and is also loss of appetite and very minimal oral intake. Patient is also complaining of bilateral lower extremity pain. Denies any nausea or vomiting. No fever. Chest x-ray done yesterday showed mild platelike atelectasis on the right. Otherwise no significant interval change. Laboratory data showed WBC improved to 5.2 hemoglobin 9.8 and platelets 55., Sodium 137 potassium 3.9 chloride 109 bicarb is 15 BUN 24 and creatinine 1.07 and blood sugar is 101. Calcium 8.1. Patient was started on cefepime. Blood cultures pending at this time. 08/29/2023 Patient is lying in the bed. Awake alert and oriented x3. Still having generalized weakness and also minimal oral intake. Pain is fairly controlled. Patient has been afebrile. No cough or sputum production. Repeat chest x-ray showed no acute process noted. Blood cultures negative so far. Wound care is following for the sacral decub ulcer stage III Otherwise patient went into rapid ventricular rate. Cardiology was consulted for evaluation. Laboratory data showed WBC went up to 17.6 hemoglobin 9.4 and platelets 103 BUN 24 and creatinine 1.16, and calcium 8.3. Potassium 3.8. Current medications reviewed. Objective - Vital Signs Vital signs: Vital Signs Temp 97.8 F 08/29/23 11:44 Pulse 134 H 08/29/23 11:44 Resp 16 08/29/23 11:44 BP 97/62 08/29/23 11:44 Pulse Ox 99 08/29/23 11:44 FiO2 Intake & Output 08/28/23 08/29/23 08/29/23 18:59 06:59 18:59 Intake Total 118 110 Output Total 300 200 Balance -182 -200 110 Intake: Oral 118 110 Output: Urine 300 200 Other: Voiding Method Indwelling Catheter Indwelling Catheter Indwelling Catheter - Exam PHYSICAL EXAMINATION: Patient is lying in the bed , no acute distress, awake alert and oriented.. HEENT: Normocephalic. Neck is supple. Pupils reactive. Nostrils clear. Oral cavity is moist. Neck reveals no JVD, carotid bruits, or thyromegaly. CHEST EXAMINATION: Trachea is central. Symmetrical expansion. Bibasilar diminished sounds.. CARDIAC: Normal S1, S2 with no gallops. No murmurs ABDOMEN: Soft. Bowel sounds present. Mild epigastric tenderness. No guarding or rigidity.. No organomegaly. No abdominal bruits. Extremities: Patient does have left lower extremity 2+ swelling. Left great toe wound which is wrapped with gauze. No active bleeding.. No clubbing or cyanosis Neurologically awake, alert, oriented x3 with well-coordinated movements. No gross focal deficits noted Skin: No rash or skin lesions. Sacral decub ulcer3 Psychiatric: Coperative. Nonsuicidal, Musculoskeletal: No joint swelling or deformity. - Labs CBC & Chem 7: 08/29/23 11:40 08/29/23 08:05 Labs: Abnormal Lab Results - Last 24 Hours (Table) 08/28/23 08/28/23 08/29/23 Range/Units 12:41 16:39 08:05 WBC (3.8-10.6) k/uL RBC (4.30-5.90) m/uL Hgb (13.0-17.5) gm/dL Hct (39.0-53.0) % MCV (80.0-100.0) fL RDW (11.5-15.5) % Plt Count 55 L D (150-450) k/uL Neutrophils # (Manual) (1.3-7.7) k/uL Lymphocytes # (Manual) 0.36 L (1.0-4.8) k/uL Monocytes # (Manual) (0-1.0) k/uL Metamyelocytes # (Man) 0.10 H (0) k/uL Myelocytes # (Manual) 0.05 H (0) k/uL Nucleated RBCs 8 H (0-0) /100 WBC Chloride 111 H (98-107) mmol/L Carbon Dioxide 15 L (22-30) mmol/L BUN 24 H (9-20) mg/dL POC Glucose (mg/dL) 126 H (70-110) mg/dL Calcium 8.3 L (8.4-10.2) mg/dL 08/29/23 Range/Units 11:40 WBC 17.6 H (3.8-10.6) k/uL RBC 2.79 L (4.30-5.90) m/uL Hgb 9.4 L (13.0-17.5) gm/dL Hct 28.4 L (39.0-53.0) % MCV 101.7 H (80.0-100.0) fL RDW 18.3 H (11.5-15.5) % Plt Count 103 L D (150-450) k/uL Neutrophils # (Manual) 14.20 H (1.3-7.7) k/uL Lymphocytes # (Manual) 0.70 L (1.0-4.8) k/uL Monocytes # (Manual) 1.58 H (0-1.0) k/uL Metamyelocytes # (Man) 0.53 H (0) k/uL Myelocytes # (Manual) 0.70 H (0) k/uL Nucleated RBCs 1 H (0-0) /100 WBC Chloride (98-107) mmol/L Carbon Dioxide (22-30) mmol/L BUN (9-20) mg/dL POC Glucose (mg/dL) (70-110) mg/dL Calcium (8.4-10.2) mg/dL Microbiology - Last 24 Hours (Table) 08/27/23 11:33 Blood Culture - Preliminary Blood Assessment and Plan Assessment: Generalized weakness and slid onto the floor while getting into the chair. Denies any hitting his head. Pancytopenia likely due to chemotherapy, improving Pancreatic tumor. Recently diagnosed currently undergoing chemotherapy last dose about a week ago Acute kidney injury on CKD stage III with creatinine level 2.5 on admission. Baseline 1.7. Lactic acidosis, improved Moderate to severe protein calorie malnutrition Coronary artery history of stent placement Paroxysmal atrial fibrillation on anticoagulation with Eliquis. Prior history of cardioversion. Hypertension Diabetes type 2 insulin-dependent Hyperlipidemia Osteoarthritis Prior history of smoking DVT prophylaxis patient is already on Eliquis Plan: Patient will be continued IV hydration with normal saline at 75 cc/h.. Patient is status post 2 units of PRBC. Hemoglobin is stable and WBC improved. Pain management with IV Dilaudid and added [place]. Continue home medications including midodrine.. Cardiology was consulted due to rapid ventricular rate. Wound care is following Patient is on cefepime and follow-up blood cultures. Oncology is on board.Not planning chemo while in the hospital.. Prognosis is guarded. PT OT will be consulted. Time with Patient: Greater than 30
[2023-08-30] MEDS: METOPROLOL TARTRATE 25 MG TAB PO SCH ×3 (00:52→09:15)
[2023-08-30] MEDS: COLLAGENASE 250 UNIT/GM OINTMENT 30 GM TUBE TOPICAL SCH ×2 (00:59→09:24)
[2023-08-30] MEDS: CEFEPIME 2 GM in SODIUM CHLORIDE 0.9% 100 ML IVPB SCH ×3 (00:59→21:14)
[2023-08-30] MEDS: HYDROmorphone 1 MG/ML 1 ML SYRINGE IVP PRN ×2 (03:06→21:14)
[2023-08-30 06:18] LABS: Glucose,Whole Blood 111 mg/dL (70-110)
[2023-08-30] MEDS: SODIUM CHLORIDE 0.9% 1,000 ML IV SCH ×2 (06:21→23:58)
[2023-08-30] MEDS: MIDODRINE 5 MG TAB PO SCH ×3 (06:24→16:27)
[2023-08-30] MEDS: FUROSEMIDE 40 MG TAB PO SCH (09:15)
[2023-08-30] MEDS: CYANOCOBALAMIN 500 MCG TAB PO SCH (09:15)
[2023-08-30] MEDS: TAMSULOSIN 0.4 MG CAP.ER.24H PO SCH (09:15)
[2023-08-30] MEDS: allopurinoL 100 MG TAB PO SCH (09:15)
[2023-08-30] MEDS: APIXABAN 5 MG TAB PO SCH ×2 (09:15→21:14)
[2023-08-30] MEDS: polyethylene glycoL 3350 17 GM POWD.PACK PO SCH (09:15)
[2023-08-30] MEDS: HYDROcodone/APAP 7.5-325MG 1 EACH TAB PO PRN ×2 (09:16→16:27)
[2023-08-30] MEDS ORDERED: METOPROLOL TARTRATE 25 MG TAB PO STA (09:17)
[2023-08-30 11:11] LABS: Anisocytosis Slight; HCT 31.1 % (39.0-53.0); HGB 10.1 gm/dL (13.0-17.5); Hypochromasia Slight; MCH 32.9 pg (25.0-35.0); MCHC 32.6 g/dL (31.0-37.0); MCV 100.8 fL (80.0-100.0); Macrocytosis Moderate; Mean Platelet Volume 9.8; Platelet Count 147 k/uL (150-450); Poikilocytosis Slight; RBC 3.09 m/uL (4.30-5.90); RDW 18.2 % (11.5-15.5); WBC 23.1 k/uL (3.8-10.6)
[2023-08-30 11:16] LABS: Glucose,Whole Blood 94 mg/dL (70-110)
[2023-08-30 11:23] LABS: African American GFR (CKD) 65 (>60 ml/min/1.73 sqM); Anion Gap 7 mmol/L; Blood Urea Nitrogen 25 mg/dL (9-20); Carbon Dioxide 18 mmol/L (22-30); Chloride 111 mmol/L (98-107); Glucose 105 mg/dL (74-99); Non-African American GFR(CKD) 56 (>60 ml/min/1.73 sqM); Potassium 3.8 mmol/L (3.5-5.1); Sodium 136 mmol/L (137-145)
[2023-08-30 12:40] LABS: Band Neutrophils % 4 %; Lymphocytes # (M) 0.92 k/uL (1.0-4.8); Monocytes # (M) 2.08 k/uL (0-1.0); Neutrophils % (M) 72 %; Nucleated Red Blood Cells 0 /100 WBC (0-0); Total Cells Counted 200
--- NOTE | 2023-08-30 13:58 | P.PN ---
Subjective Progress Note Date: 08/30/23 History of present illness: This is a 68-year-old male patient of Dr. FELI Michael with past medical history of ischemic cardiomyopathy, coronary artery disease status post PCI in 1996, hypertension, mitral regurgitation, hyperlipidemia, remote history of tobacco use and dependence, persistent atrial fibrillation on eliquis, pancreatic cancer. Patient was previously evaluated for AICD implantation but was canceled due to the diagnosis of pancreatic cancer. Patient did have a hospitalization after starting chemotherapy and was dehydrated with diarrhea and subsequently had V. tach V. fib arrest with ROSC after 36 minutes of CPR and multiple shocks in January 2023. We have been asked to evaluate the patient for A. fib with RVR. Patient presented to the hospital due to acute kidney injury, chemotherapy induced pancytopenia and no pressure ulcer. Patient states that he was sitting in a chair was slid off and then was unable to get up for a long period of time. His CK was surprisingly normal on arrival. Patient does have chronic lower extremity edema. Telemetry is atrial fibrillation [id number] bpm WBC 17.6 and initially 0.3, hemoglobin 9.4 and initially 6.2. Platelet count 103. Potassium 3.8, BUN 24 creatinine 1.16 improved from 2.5. Urinalysis with slight blood. Home cardiac medications: Eliquis 5 mg twice daily, Lasix 40 mg daily, Imdur 30 mg daily, Lopressor 100 mg twice daily, Nitrostat as needed, pravastatin 29 g at bedtime, midodrine 5 mg twice daily Echocardiogram performed 07/11/23 revealed mildly increased left ventricular wall thickness. EF 25-30%, moderate aortic calcification however no significant aortic valve stenosis. Mild aortic insufficiency. Moderate mitral re gurgitation. RVSP 42. Lexiscan stress test EF 30%, fixed inferior wall defect with no reversible is chemia performed 08/09/2021 in the office. 08/30 Patient remains in atrial fibrillation running in the 130s and blood pressure 90/64. He states he does feel a little dizzy low short of breath sitting on edge of the bed but this first time he has been set up. He denies palpitations and no chest pain. Physical examination: Gen: This is a 68 year old male sitting in chair and appears to be comfortable no acute distress. VS: reviewed HEENT: Head is atraumatic, normocephalic. Pupils equal, round. Sclerae is anicteric. LUNGS: Clear to auscultation. No wheezes or rhonchi. No intercostal retra ctions. HEART: Irregular rate and rhythm. No murmur. Tachycardic ABDOMEN: Soft No tenderness. EXTREMITIES: Mild bilateral pedal edema. Dressing on the left foot. NEUROLOGICAL: Patient is awake, alert and oriented x3. Assessment: Persistent atrial fibrillation with RVR Acute kidney injury Thrombocytopenia Pancreatic cancer Ischemic cardiomyopathy Coronary artery disease with PCI in 1996 Hypertension Hyperlipidemia Plan: Continue eliquis Increase Lopressor to 50 mg 3 times daily No need to repeat echocardiogram Further recommendations to follow based upon clinical course Thank you kindly for this consultation. Nurse practitioner note has been reviewed, I agree with documented findings and plan of care. Patient was seen and examined. Objective - Vital Signs Vital signs: Vital Signs Temp 97.4 F L 08/30/23 08:41 Pulse 134 H 08/30/23 08:41 Resp 18 08/30/23 08:41 BP 98/64 08/30/23 08:41 Pulse Ox 97 08/30/23 08:41 FiO2 Intake & Output 08/29/23 08/30/23 08/30/23 18:59 06:59 18:59 Intake Total 220 Output Total 390 950 Balance -170 -950 Intake: Oral 220 Output: Urine 390 950 Other: Voiding Method Indwelling Catheter Indwelling Catheter - Labs CBC & Chem 7: 08/30/23 10:11 08/30/23 10:11 Labs: Abnormal Lab Results - Last 24 Hours (Table) 08/29/23 08/30/23 Range/Units 11:40 06:16 WBC 17.6 H (3.8-10.6) k/uL RBC 2.79 L (4.30-5.90) m/uL Hgb 9.4 L (13.0-17.5) gm/dL Hct 28.4 L (39.0-53.0) % MCV 101.7 H (80.0-100.0) fL RDW 18.3 H (11.5-15.5) % Plt Count 103 L D (150-450) k/uL Neutrophils # (Manual) 14.20 H (1.3-7.7) k/uL Lymphocytes # (Manual) 0.70 L (1.0-4.8) k/uL Monocytes # (Manual) 1.58 H (0-1.0) k/uL Metamyelocytes # (Man) 0.53 H (0) k/uL Myelocytes # (Manual) 0.70 H (0) k/uL Nucleated RBCs 1 H (0-0) /100 WBC POC Glucose (mg/dL) 111 H (70-110) mg/dL Microbiology - Last 24 Hours (Table) 08/27/23 11:33 Blood Culture - Preliminary Blood
[2023-08-30 14:20] LABS: Metamyelocytes # (M) 0.92 k/uL (0); Metamyelocytes % 4 %; Myelocytes # (M) 0.92 k/uL (0); Myelocytes % 4 %
[2023-08-30 14:21] LABS: Eosinophils # (M) 0.69 k/uL (0-0.7)
[2023-08-30 16:24] LABS: Glucose,Whole Blood 165 mg/dL (70-110)
[2023-08-30] MEDS: METOPROLOL TARTRATE 50 MG TAB PO SCH ×2 (16:27→21:14)
[2023-08-30 20:10] LABS: Glucose,Whole Blood 147 mg/dL (70-110)
[2023-08-30] MEDS: PRAVASTATIN SODIUM 20 MG TAB PO SCH (21:14)
[2023-08-31 06:08] LABS: Glucose,Whole Blood 98 mg/dL (70-110)
[2023-08-31] MEDS: MIDODRINE 5 MG TAB PO SCH ×3 (06:45→17:17)
--- NOTE | 2023-08-31 06:45 | P.CONS ---
History of Present Illness - Reason for Consult Consult date: 08/30/23 Leukocytosis Requesting physician: Armida Lamar - Chief Complaint Weakness x few days - History of Present Illness Patient is a 68-year-old male with a past medical history significant for atrial fibrillation diabetes mellitus hypertension hyperlipidemia also history of localized pancreatic cancer currently on chemotherapy last chemo was on 08/18/2023 since then the patient has significant loss of appetite decreased oral intake progressive getting weaker and more fatigue patient presenting to the hospital 6 days ago after apparently when the patient was trying to sit in the chair by slipped onto the floor he tried to get up again was unable to get up from the floor and called for help patient has been complaining of feeling weak no energy denies any significant headache or URI symptoms no chest pain shortness of breath occasional dry cough no nausea noted no abdominal pain or diarrhea on presentation to the hospital patient was afebrile he did have a low- grade fever of 100 F on 08/27/2023 has been mildly tachycardic no significant hypotension or hypoxemia patient on presentation to the hospital was leukopenic has received filgrastim and although white count is up to 23.1 today that has prompted this infectious disease consultation did have mild elevated BUN/creatinine patient did have blood culture on 08/27/2023 those has been negative so far and the patient is currently on cefepime empirically patient did have a chest x-ray chronic changes without evidence for acute process patient also noticed to have unstageable sacral pressure ulcer and a nonhealing wound to the right big toe being treated with the Santyl by the wound care Review of Systems Positive point and negatives has been mentioned in the HPI, complete review of systems was performed and all other systems are negative Past Medical History Past Medical History: Atrial Fibrillation, Cancer, Chest Pain / Angina, Diabetes Mellitus, Hyperlipidemia, Hypertension, Musculoskeletal Disorder, Osteoarthritis (OA) Additional Past Medical History / Comment(s): BACK PAIN R/T OLD INJURY. kidney stones, Recent diagnosis of Pancreatic tumor. History of Any Multi-Drug Resistant Organisms: None Reported Past Surgical History: Back Surgery, Heart Catheterization, Heart Catheterization With Stent, Orthopedic Surgery Additional Past Surgical History / Comment(s): R Knee scope; Colonoscopy; Deviated Septum Repair. BACK SURG.X2 PTCA W/ STENTS X2. CARDIOVERSION 03/28/18. ERCP last week with Dr. Morfin out [facility] with stent placement. Past Anesthesia/Blood Transfusion Reactions: No Reported Reaction Date of Last Stent Placement:: 1997 Past Psychological History: No Psychological Hx Reported Smoking Status: Former smoker - Past Family History Mother Family Medical History: Dementia, Memory Impairment Additional Family Medical History / Comment(s): Mother in her 80s r/t advanced dementia. Father Family Medical History: Myocardial Infarction (ND) Additional Family Medical History / Comment(s): Father from coronary artery disease. Sister(s) Additional Family Medical History / Comment(s): Patient has 3 sisters one past from CVA. One has coronary artery disease with stent in 1 has no major medical problems. Patient is not having any children. Patient does not have any brothers. Medications and Allergies Home Medications Medication Instructions Recorded Confirmed Type Apixaban [Eliquis] 5 mg PO BID 03/20/18 08/25/23 History Cyanocobalamin (Vitamin B-12) 1,000 mcg PO DAILY 03/20/18 08/25/23 History [Vitamin B-12] Cyclobenzaprine [Flexeril] 10 mg PO HS PRN 03/20/18 08/25/23 History Nitroglycerin Sl Tabs [Nitrostat] 0.4 mg SUBLINGUAL Q5M PRN 03/20/18 08/25/23 History Pravastatin Sodium [Pravachol] 20 mg PO HS 12/13/19 08/25/23 History Cholecalciferol [Vitamin D3 (25 50 mcg PO DAILY 10/13/22 08/25/23 History Mcg = 1000 Iu)] Diphenoxylate HCl/Atropine 2 tab PO QID PRN 07/10/23 08/25/23 History [Lomotil 2.5-0.025 mg Tablet] Insulin Degludec [Tresiba 10 units SQ DAILY 07/10/23 08/25/23 History Flextouch U-100 Pen] allopurinoL [Zyloprim] 100 mg PO DAILY 07/10/23 08/25/23 History Acetaminophen Tab [Tylenol] 650 mg PO Q6HR PRN tab 07/14/23 08/25/23 Rx Tamsulosin [Flomax] 0.4 mg PO PC-BRKFST #30 cap 07/14/23 08/25/23 Rx Amoxic-Pot Clav 875-125Mg 1 tab PO Q12HR 10 Days #20 tab 09/05/23 Rx [Augmentin 875-125] Collagenase [Santyl Ointment] 1 applic TOPICAL DAILY 30 Days #1 09/05/23 Rx each Famotidine [Pepcid] 20 mg PO DAILY #30 tab 09/05/23 Rx HYDROcodone/APAP 10-325MG [[place] 1 each PO Q6HR PRN #9 tab 09/05/23 Rx 10-325] Metoprolol Tartrate [Lopressor] 50 mg PO TID 30 Days #90 tab 09/05/23 Rx Midodrine [ProAmatine] 10 mg PO AC-TID 30 Days #180 tab 09/05/23 Rx polyethylene glycoL 3350 [Miralax] 17 gm PO DAILY #30 packet 09/05/23 Rx Allergies Allergy/AdvReac Type Severity Reaction Status Date / Time morphine Allergy Swelling Verified 08/25/23 16:42 Physical Exam Vitals: Vital Signs Temp Pulse Resp BP Pulse Ox 08/30/23 16:00 97.6 F 117 H 18 93/61 98 08/30/23 14:00 115 H 18 08/30/23 12:00 115 H 18 113/74 99 08/30/23 08:41 97.4 F L 134 H 18 98/64 97 08/30/23 03:08 135 H 16 106/66 100 08/30/23 02:00 135 H 16 08/30/23 00:00 121 H 16 101/61 08/29/23 20:00 115 H 16 96/60 Intake and Output 08/30/23 08/30/23 08/30/23 06:59 14:59 22:59 Intake Total 110 Output Total 450 Balance -450 110 Intake: Oral 110 Output: Urine 450 Other: Voiding Method Indwelling Catheter Indwelling Catheter Weight 73.482 kg GENERAL DESCRIPTION: An elderly male lying in bed, no distress. No tachypnea or accessory muscle of respiration use. HEENT: Shows Pallor , no scleral icterus. Oral mucous membrane is dry. No pharyngeal erythema or thrush NECK: Trachea central, no thyromegaly. LUNGS: Unlabored breathing. Decreased breath sound the bases HEART: S1, S2, regular rate and rhythm. No loud murmur ABDOMEN: Soft, no tenderness EXTREMITIES: No edema of feet. SKIN: No rash, no masses palpable. Patient did have a stage III sacral pressure ulcer with some necrotic tissue minimal redness or foul-smelling drainage NEUROLOGICAL: The patient is awake, alert, oriented x3, mood and affect normal. Results CBC & Chem 7: 09/05/23 15:11 09/05/23 15:11 Labs: Abnormal Lab Results - Last 24 Hours (Table) 08/30/23 08/30/23 08/30/23 Range/Units 06:16 10:11 10:11 WBC 23.1 H (3.8-10.6) k/uL RBC 3.09 L (4.30-5.90) m/uL Hgb 10.1 L (13.0-17.5) gm/dL Hct 31.1 L (39.0-53.0) % MCV 100.8 H (80.0-100.0) fL RDW 18.2 H (11.5-15.5) % Plt Count 147 L (150-450) k/uL Neutrophils # (Manual) 17.50 H (1.3-7.7) k/uL Lymphocytes # (Manual) 0.92 L (1.0-4.8) k/uL Monocytes # (Manual) 2.08 H (0-1.0) k/uL Metamyelocytes # (Man) 0.92 H (0) k/uL Myelocytes # (Manual) 0.92 H (0) k/uL Sodium 136 L (137-145) mmol/L Chloride 111 H (98-107) mmol/L Carbon Dioxide 18 L (22-30) mmol/L BUN 25 H (9-20) mg/dL Creatinine 1.31 H (0.66-1.25) mg/dL Glucose 105 H (74-99) mg/dL POC Glucose (mg/dL) 111 H (70-110) mg/dL Calcium 8.0 L (8.4-10.2) mg/dL Microbiology - Last 24 Hours (Table) 08/27/23 11:33 Blood Culture - Preliminary Blood Assessment and Plan (1) Leukocytosis Status: Acute Code(s): D72.829 - ELEVATED WHITE BLOOD CELL COUNT, UNSPECIFIED SNOMED Code(s): 500827654 (2) Pressure ulcer of sacral region, stage 3 Status: Acute Code(s): L89.153 - PRESSURE ULCER OF SACRAL REGION, STAGE 3 SNOMED Code(s): 29253162808264 Plan: 1patient with leukocytosis in this patient who did have a history of pancreatic cancer on Uroject chemotherapy last chemotherapy on 08/18/2023 admitted to hospital with weakness falls unable to get out of the floor patient was noticed to be leukopenic on admission and has received filgrastim, could be related to that as the patient has significant fever patient also have pressure ulcer to the sacral area have some necrotic changes and may be responsible for some of the elevated white count but no significant cellulitis chest x-ray was negative abdominal soft on clinical examination 2-we will obtain a UA CRP procalcitonin to complete the work-up 3-continue with empiric cefepime while awaiting further work-up to be completed We will follow on clinical condition and cultures to further adjust medication if needed Thank you for this consultation we will follow the patient along with you Dictation was produced using [employer] dictation software. please excuse any grammatical, word or spelling errors. Time with Patient: Greater than 30
[2023-08-31] MEDS: SODIUM CHLORIDE 0.9% 1,000 ML IV SCH (06:46)
[2023-08-31] MEDS: COLLAGENASE 250 UNIT/GM OINTMENT 30 GM TUBE TOPICAL SCH (08:37)
[2023-08-31] MEDS: METOPROLOL TARTRATE 50 MG TAB PO SCH ×3 (08:38→21:16)
[2023-08-31] MEDS: APIXABAN 5 MG TAB PO SCH ×2 (08:38→21:16)
[2023-08-31] MEDS: TAMSULOSIN 0.4 MG CAP.ER.24H PO SCH (08:38)
[2023-08-31] MEDS: allopurinoL 100 MG TAB PO SCH (08:38)
[2023-08-31] MEDS: CEFEPIME 2 GM in SODIUM CHLORIDE 0.9% 100 ML IVPB SCH ×2 (08:38→21:16)
[2023-08-31] MEDS: CYANOCOBALAMIN 500 MCG TAB PO SCH (08:38)
[2023-08-31] MEDS: FUROSEMIDE 40 MG TAB PO SCH (08:38)
[2023-08-31] MEDS: HYDROmorphone 1 MG/ML 1 ML SYRINGE IVP PRN ×2 (08:56→16:11)
[2023-08-31 09:59] LABS: African American GFR (CKD) 66 (>60 ml/min/1.73 sqM); Anion Gap 9 mmol/L; Blood Urea Nitrogen 26 mg/dL (9-20); C Reactive Protein 6.4 mg/dL (<1.0); Calcium 7.9 mg/dL (8.4-10.2); Carbon Dioxide 19 mmol/L (22-30); Chloride 110 mmol/L (98-107); Glucose 110 mg/dL (74-99); Non-African American GFR(CKD) 57 (>60 ml/min/1.73 sqM); Potassium 3.2 mmol/L (3.5-5.1); Sodium 138 mmol/L (137-145)
[2023-08-31] MEDS: polyethylene glycoL 3350 17 GM POWD.PACK PO SCH (11:10)
[2023-08-31 11:30] LABS: Glucose,Whole Blood 144 mg/dL (70-110)
--- NOTE | 2023-08-31 11:41 | P.PN ---
Subjective Progress Note Date: 08/31/23 History of present illness: This is a 68-year-old male patient of Dr. FELI Michael with past medical history of ischemic cardiomyopathy, coronary artery disease status post PCI in 1996, hypertension, mitral regurgitation, hyperlipidemia, remote history of tobacco use and dependence, persistent atrial fibrillation on eliquis, pancreatic cancer. Patient was previously evaluated for AICD implantation but was canceled due to the diagnosis of pancreatic cancer. Patient did have a hospitalization after starting chemotherapy and was dehydrated with diarrhea and subsequently had V. tach V. fib arrest with ROSC after 36 minutes of CPR and multiple shocks in January 2023. We have been asked to evaluate the patient for A. fib with RVR. Patient presented to the hospital due to acute kidney injury, chemotherapy induced pancytopenia and no pressure ulcer. Patient states that he was sitting in a chair was slid off and then was unable to get up for a long period of time. His CK was surprisingly normal on arrival. Patient does have chronic lower extremity edema. Telemetry is atrial fibrillation [id number] bpm WBC 17.6 and initially 0.3, hemoglobin 9.4 and initially 6.2. Platelet count 103. Potassium 3.8, BUN 24 creatinine 1.16 improved from 2.5. Urinalysis with slight blood. Home cardiac medications: Eliquis 5 mg twice daily, Lasix 40 mg daily, Imdur 30 mg daily, Lopressor 100 mg twice daily, Nitrostat as needed, pravastatin 29 g at bedtime, midodrine 5 mg twice daily Echocardiogram performed 07/11/23 revealed mildly increased left ventricular wall thickness. EF 25-30%, moderate aortic calcification however no significant aortic valve stenosis. Mild aortic insufficiency. Moderate mitral re gurgitation. RVSP 42. Lexiscan stress test EF 30%, fixed inferior wall defect with no reversible is chemia performed 08/09/2021 in the office. 08/30 Patient remains in atrial fibrillation running in the 130s and blood pressure 90/64. He states he does feel a little dizzy low short of breath sitting on edge of the bed but this first time he has been set up. He denies palpitations and no chest pain. 08/31 Patient is seen in follow-up. No new concerns from the patient. His heart rate is now in the 90s to 110 in atrial fibrillation, blood pressure 101/61. Patient is maintained on eliquis and metoprolol 50 mg 3 times daily. Patient has no new concerns. He just feels tired and fatigued. No chest pain no palpitations. Physical examination: Gen: This is a 68 year old male sitting in chair and appears to be comfortable no acute distress. VS: reviewed HEENT: Head is atraumatic, normocephalic. Pupils equal, round. Sclerae is anicteric. LUNGS: Clear to auscultation. No wheezes or rhonchi. No intercostal retractions. HEART: Irregular rate and rhythm. No murmur. Tachycardic ABDOMEN: Soft No tenderness. EXTREMITIES: Mild bilateral pedal edema. Dressing on the left foot. NEUROLOGICAL: Patient is awake, alert and oriented x3. Assessment: Persistent atrial fibrillation with RVR Acute kidney injury Thrombocytopenia Pancreatic cancer Ischemic cardiomyopathy Coronary artery disease with PCI in 1996 Hypertension Hyperlipidemia Plan: Continue eliquis Continue Lopressor 50 mg 3 times daily No need to repeat echocardiogram Further recommendations to follow based upon clinical course Nurse practitioner note has been reviewed, I agree with documented findings and plan of care. Patient was seen and examined. Objective - Vital Signs Vital signs: Vital Signs Temp 97.1 F L 08/31/23 08:00 Pulse 93 08/31/23 08:00 Resp 14 08/31/23 08:00 BP 105/65 08/31/23 08:00 Pulse Ox 98 08/31/23 08:00 FiO2 Intake & Output 08/30/23 08/31/23 08/31/23 18:59 06:59 18:59 Intake Total 110 120 Output Total 660 650 Balance -550 -650 120 Weight 73.482 kg Intake: Oral 110 120 Output: Urine 660 650 Other: Voiding Method Indwelling Catheter Indwelling Catheter Indwelling Catheter # Voids 1 - Labs CBC & Chem 7: 08/30/23 10:11 08/31/23 08:27 Labs: Abnormal Lab Results - Last 24 Hours (Table) 08/30/23 08/30/23 08/30/23 Range/Units 10:11 16:22 20:09 Neutrophils # (Manual) 17.50 H (1.3-7.7) k/uL Lymphocytes # (Manual) 0.92 L (1.0-4.8) k/uL Monocytes # (Manual) 2.08 H (0-1.0) k/uL Metamyelocytes # (Man) 0.92 H (0) k/uL Myelocytes # (Manual) 0.92 H (0) k/uL Potassium (3.5-5.1) mmol/L Chloride (98-107) mmol/L Carbon Dioxide (22-30) mmol/L BUN (9-20) mg/dL Creatinine (0.66-1.25) mg/dL Glucose (74-99) mg/dL POC Glucose (mg/dL) 165 H 147 H (70-110) mg/dL Calcium (8.4-10.2) mg/dL C-Reactive Protein (<1.0) mg/dL 08/31/23 08/31/23 Range/Units 08:27 11:29 Neutrophils # (Manual) (1.3-7.7) k/uL Lymphocytes # (Manual) (1.0-4.8) k/uL Monocytes # (Manual) (0-1.0) k/uL Metamyelocytes # (Man) (0) k/uL Myelocytes # (Manual) (0) k/uL Potassium 3.2 L (3.5-5.1) mmol/L Chloride 110 H (98-107) mmol/L Carbon Dioxide 19 L (22-30) mmol/L BUN 26 H (9-20) mg/dL Creatinine 1.28 H (0.66-1.25) mg/dL Glucose 110 H (74-99) mg/dL POC Glucose (mg/dL) 144 H (70-110) mg/dL Calcium 7.9 L (8.4-10.2) mg/dL C-Reactive Protein 6.4 H (<1.0) mg/dL Microbiology - Last 24 Hours (Table) 08/27/23 11:33 Blood Culture - Preliminary Blood
--- NOTE | 2023-08-31 12:56 | P.PN ---
Subjective Progress Note Date: 08/31/23 Principal diagnosis: Leukocytosis Patient is a 68-year-old male with a past medical history significant for atrial fibrillation diabetes mellitus hypertension hyperlipidemia also history of localized pancreatic cancer currently on chemotherapy last chemo was on 08/18/2023, presented to hospital with weakness and decreased oral intake did have leukopenia on admission and one low diffusion 100F patient has received Filgrastim during this admission and subsequently noticed to have elevated white count probably this infection disease consultation. On today's evaluation that is08/31/2023, the patient denies any fever or any chills, the patient is breathing comfortably on room air and no need for supplemental oxygen, the patient denies any chest pain, cough or sputum production, patient denies abdominal pain and no nausea/vomiting and no diarrhea has been reported No CBC was done today creatinine 1.28 UA not collected Objective - Vital Signs Vital signs: Vital Signs Temp 97.1 F L 08/31/23 08:00 Pulse 93 08/31/23 08:00 Resp 14 08/31/23 08:00 BP 105/65 08/31/23 08:00 Pulse Ox 98 08/31/23 08:00 FiO2 Intake & Output 08/30/23 08/31/23 08/31/23 18:59 06:59 18:59 Intake Total 110 120 Output Total 660 650 325 Balance -550 -650 -205 Weight 73.482 kg Intake: Oral 110 120 Output: Urine 660 650 325 Other: Voiding Method Indwelling Catheter Indwelling Catheter Indwelling Catheter # Voids 1 - Exam GENERAL DESCRIPTION: An elderly male lying in bed in no distress RESPIRATORY SYSTEM: Unlabored breathing , clear to auscultation anteriorly HEART: S1 S2 regular rate and rhythm , ABDOMEN: Soft , no tenderness EXTREMITIES: No edema feet - Labs CBC & Chem 7: 08/30/23 10:11 08/31/23 08:27 Labs: Abnormal Lab Results - Last 24 Hours (Table) 08/30/23 08/30/23 08/30/23 Range/Units 10:11 16:22 20:09 Neutrophils # (Manual) 17.50 H (1.3-7.7) k/uL Lymphocytes # (Manual) 0.92 L (1.0-4.8) k/uL Monocytes # (Manual) 2.08 H (0-1.0) k/uL Metamyelocytes # (Man) 0.92 H (0) k/uL Myelocytes # (Manual) 0.92 H (0) k/uL Potassium (3.5-5.1) mmol/L Chloride (98-107) mmol/L Carbon Dioxide (22-30) mmol/L BUN (9-20) mg/dL Creatinine (0.66-1.25) mg/dL Glucose (74-99) mg/dL POC Glucose (mg/dL) 165 H 147 H (70-110) mg/dL Calcium (8.4-10.2) mg/dL C-Reactive Protein (<1.0) mg/dL 08/31/23 08/31/23 Range/Units 08:27 11:29 Neutrophils # (Manual) (1.3-7.7) k/uL Lymphocytes # (Manual) (1.0-4.8) k/uL Monocytes # (Manual) (0-1.0) k/uL Metamyelocytes # (Man) (0) k/uL Myelocytes # (Manual) (0) k/uL Potassium 3.2 L (3.5-5.1) mmol/L Chloride 110 H (98-107) mmol/L Carbon Dioxide 19 L (22-30) mmol/L BUN 26 H (9-20) mg/dL Creatinine 1.28 H (0.66-1.25) mg/dL Glucose 110 H (74-99) mg/dL POC Glucose (mg/dL) 144 H (70-110) mg/dL Calcium 7.9 L (8.4-10.2) mg/dL C-Reactive Protein 6.4 H (<1.0) mg/dL Microbiology - Last 24 Hours (Table) 08/27/23 11:33 Blood Culture - Preliminary Blood Assessment and Plan (1) Leukocytosis Current Visit: Yes Status: Acute Code(s): D72.829 - ELEVATED WHITE BLOOD CELL COUNT, UNSPECIFIED SNOMED Code(s): 915804200 (2) Pressure ulcer of sacral region, stage 3 Current Visit: Yes Status: Acute Code(s): L89.153 - PRESSURE ULCER OF SACRAL REGION, STAGE 3 SNOMED Code(s): 76875720154800 Plan: 1patient with leukocytosis in this patient who did have a history of pancreatic cancer on Uroject chemotherapy last chemotherapy on 08/18/2023 admitted to hospital with weakness falls unable to get out of the floor patient was noticed to be leukopenic on admission and has received filgrastim, could be related to that as the patient has significant fever patient also have pressure ulcer to the sacral area have some necrotic changes and may be responsible for some of the elevated white count but no significant cellulitis chest x-ray was negative abdominal soft on clinical examination 2-we are currently waiting for UA CRP procalcitonin to complete the work-up 3-patient to continue with empiric cefepime while awaiting further work-up to be completed Dictation was produced using [employer] dictation software. please excuse any grammatical, word or spelling errors. Time with Patient: Less than 30
--- NOTE | 2023-08-31 13:48 | P.PN ---
Subjective Progress Note Date: 08/31/23 This is a 68-year-old male with history of pancreatic last chemotherapy dose was August 18, 2023. Patient comes in for a slip and fall from home. Patient did have an injury to the left toe/foot while getting up. He came in by EMS for evaluation. Patient did have a temperature was also tachycardic he is being worked up for underlying infection by ID to have an increasing white count went from 0.5 on admission, to 5.2 and now currently 23.1. When he was neutropenic this admission he did receive a dose of filgstrim. Patient is on IV cefepime empirically. CRP elevated at 6.4. The initial plan was discharge to rehab however patient now wants to be discharged to his sisters house states that she will be caring for him. Heart rate up in the 120s, cardiology following for the afib RVR. He does have a stage 2 sacral decub that has some necrotic changes and local wound care is in place with santyl. Review of Systems Constitutional: Denied any fatigue denied any fever. Cardio vascular: denied any chest pain, palpitations Gastrointestinal: denied any nausea, vomiting, diarrhea Pulmonary: Denied any shortness of breath cough Neurologic denied any new focal deficits All inpatient medications were reviewed and appropriate changes in these medications as dictated in the interval history and assessment and plan. PHYSICAL EXAMINATION: Patient is lying in the bed , no acute distress, awake alert and oriented.. HEENT: Normocephalic. Neck is supple. Pupils reactive. Nostrils clear. Oral cavity is moist. Neck reveals no JVD, carotid bruits, or thyromegaly. CHEST EXAMINATION: Trachea is central. Symmetrical expansion. Bibasilar diminished sounds.. CARDIAC: Normal S1, S2 with no gallops. No murmurs ABDOMEN: Soft. Bowel sounds present. Mild epigastric tenderness. No guarding or rigidity.. No organomegaly. No abdominal bruits. Extremities: Patient does have left lower extremity 2+ swelling. Left great toe wound which is wrapped with gauze. No active bleeding.. No clubbing or cyanosis Neurologically awake, alert, oriented x3 with well-coordinated movements. No gross focal deficits noted, generalized weakness. Skin: No rash or skin lesions. Sacral decub ulcer3 Psychiatric: Coperative. Nonsuicidal, Musculoskeletal: No joint swelling or deformity. Stage 2 sacral decub. Assessment Fever and leukocytosis concern for underlying infection work up in progress Stage 2 sacral decub possible source of infection Generalized weakness and slid onto the floor while getting into the chair. Denies any hitting his head. Pancytopenia likely due to chemotherapy, improving Pancreatic tumor. Recently diagnosed currently undergoing chemotherapy last dose about a week ago Acute kidney injury on CKD stage III with creatinine level 2.5 on admission. Baseline 1.7. Lactic acidosis, improved Moderate to severe protein calorie malnutrition Coronary artery history of stent placement Paroxysmal atrial fibrillation on anticoagulation with Eliquis. Prior history of cardioversion. currently with rapid ventricular rate. Hypertension Diabetes type 2 insulin-dependent Hyperlipidemia Osteoarthritis Prior history of smoking DVT prophylaxis patient is already on Eliquis Plan: Patient is status post 2 units of PRBC. Hemoglobin is stable and WBC improved. Now with leukocytosis and pt is being worked up for underlying infection on will continue on empiric antibiotics with IV cefepime Pain management with IV Dilaudid and added [place]. Continue home medications including midodrine.. Cardiology was consulted due to rapid ventricular rate. Wound care is following Oncology is on board.Not planning chemo while in the hospital.. Prognosis is guarded. PT OT will be consulted, patient does not want subacute rehab would like to DC home with sister to her house and sister states she can help care for him. Follow up labs in AM. The impression and plan of care has been dictated by Pam Shah, Nurse Practitioner as directed. Dr. Alex MD I have performed a history and physical examination and medical decision making of this patient, discussed the same with the dictator, and agree with the dictators assessment and plan as written, documented as a scribe. Based on total visit time, I have performed more than 50% of this visit. Objective - Vital Signs Vital signs: Vital Signs Temp 97.6 F 08/31/23 12:00 Pulse 122 H 08/31/23 13:32 Resp 14 08/31/23 13:32 BP 103/70 08/31/23 12:00 Pulse Ox 97 08/31/23 12:00 FiO2 Intake & Output 08/30/23 08/31/23 08/31/23 18:59 06:59 18:59 Intake Total 110 120 Output Total 660 650 325 Balance -550 -650 -205 Weight 73.482 kg Intake: Oral 110 120 Output: Urine 660 650 325 Other: Voiding Method Indwelling Catheter Indwelling Catheter Indwelling Catheter # Voids 1 - Labs CBC & Chem 7: 08/30/23 10:11 08/31/23 08:27 Labs: Abnormal Lab Results - Last 24 Hours (Table) 08/30/23 08/30/23 08/30/23 Range/Units 10:11 16:22 20:09 Neutrophils # (Manual) 17.50 H (1.3-7.7) k/uL Lymphocytes # (Manual) 0.92 L (1.0-4.8) k/uL Monocytes # (Manual) 2.08 H (0-1.0) k/uL Metamyelocytes # (Man) 0.92 H (0) k/uL Myelocytes # (Manual) 0.92 H (0) k/uL Potassium (3.5-5.1) mmol/L Chloride (98-107) mmol/L Carbon Dioxide (22-30) mmol/L BUN (9-20) mg/dL Creatinine (0.66-1.25) mg/dL Glucose (74-99) mg/dL POC Glucose (mg/dL) 165 H 147 H (70-110) mg/dL Calcium (8.4-10.2) mg/dL C-Reactive Protein (<1.0) mg/dL 08/31/23 08/31/23 Range/Units 08:27 11:29 Neutrophils # (Manual) (1.3-7.7) k/uL Lymphocytes # (Manual) (1.0-4.8) k/uL Monocytes # (Manual) (0-1.0) k/uL Metamyelocytes # (Man) (0) k/uL Myelocytes # (Manual) (0) k/uL Potassium 3.2 L (3.5-5.1) mmol/L Chloride 110 H (98-107) mmol/L Carbon Dioxide 19 L (22-30) mmol/L BUN 26 H (9-20) mg/dL Creatinine 1.28 H (0.66-1.25) mg/dL Glucose 110 H (74-99) mg/dL POC Glucose (mg/dL) 144 H (70-110) mg/dL Calcium 7.9 L (8.4-10.2) mg/dL C-Reactive Protein 6.4 H (<1.0) mg/dL Microbiology - Last 24 Hours (Table) 08/27/23 11:33 Blood Culture - Preliminary Blood Assessment and Plan Time with Patient: Less than 30
[2023-08-31 14:30] LABS: Anisocytosis Slight; HCT 35.3 % (39.0-53.0); HGB 11.4 gm/dL (13.0-17.5); Hypochromasia Slight; MCH 32.9 pg (25.0-35.0); MCHC 32.1 g/dL (31.0-37.0); MCV 102.2 fL (80.0-100.0); Macrocytosis Moderate; Mean Platelet Volume 9.6; Platelet Count 207 k/uL (150-450); Poikilocytosis Slight; RBC 3.46 m/uL (4.30-5.90); RDW 18.2 % (11.5-15.5); WBC 24.1 k/uL (3.8-10.6)
[2023-08-31 15:24] LABS: Band Neutrophils % 5 %; Eosinophils # (M) 0.24 k/uL (0-0.7); Lymphocytes # (M) 0.48 k/uL (1.0-4.8); Metamyelocytes # (M) 0.72 k/uL (0); Metamyelocytes % 3 %; Monocytes # (M) 2.41 k/uL (0-1.0); Myelocytes # (M) 0.72 k/uL (0); Myelocytes % 3 %; Neutrophils % (M) 77 %; Nucleated Red Blood Cells 0 /100 WBC (0-0); Total Cells Counted 200
[2023-08-31 15:27] LABS: Toxic Granulation Present
[2023-08-31 15:28] LABS: Polychromasia Present
[2023-08-31 16:23] LABS: Glucose,Whole Blood 168 mg/dL (70-110)
--- NOTE | 2023-08-31 18:12 | P.PN ---
Subjective Progress Note Date: 08/31/23 Principal diagnosis: pancreatic cancer At today's visit patient is resting comfortably in bed. Patient is reporting persisting bilateral lower ext pain and sacral pain related to pressure ulcer. Wound care following. Also reporting generalized weakness. Denies nausea vomiting diarrhea. Tolerating oral intake Objective - Vital Signs Vital signs: Vital Signs Temp 97.8 F 08/31/23 16:00 Pulse 112 H 08/31/23 16:00 Resp 14 08/31/23 16:00 BP 93/56 08/31/23 16:00 Pulse Ox 99 08/31/23 16:00 FiO2 Intake & Output 08/30/23 08/31/23 08/31/23 18:59 06:59 18:59 Intake Total 110 240 Output Total 660 650 325 Balance -550 -650 -85 Weight 73.482 kg Intake: Oral 110 240 Output: Urine 660 650 325 Other: Voiding Method Indwelling Catheter Indwelling Catheter Indwelling Catheter # Voids 1 - Constitutional General appearance: Present: no acute distress, thin - EENT ENT: Present: hearing grossly normal - Respiratory Details: breathing is even and unlabored - Cardiovascular Details: skin warm and dry - Gastrointestinal General gastrointestinal: Present: soft. Absent: tenderness - Integumentary Integumentary: Absent: cyanotic - Musculoskeletal Musculoskeletal: Present: generalized weakness - Psychiatric Psychiatric: Present: A&O x's 3, appropriate affect, intact judgment & insight - Labs CBC & Chem 7: 08/31/23 13:16 08/31/23 08:27 Labs: Abnormal Lab Results - Last 24 Hours (Table) 08/30/23 08/31/23 08/31/23 Range/Units 20:09 08:27 11:29 WBC (3.8-10.6) k/uL RBC (4.30-5.90) m/uL Hgb (13.0-17.5) gm/dL Hct (39.0-53.0) % MCV (80.0-100.0) fL RDW (11.5-15.5) % Neutrophils # (Manual) (1.3-7.7) k/uL Lymphocytes # (Manual) (1.0-4.8) k/uL Monocytes # (Manual) (0-1.0) k/uL Metamyelocytes # (Man) (0) k/uL Myelocytes # (Manual) (0) k/uL Potassium 3.2 L (3.5-5.1) mmol/L Chloride 110 H (98-107) mmol/L Carbon Dioxide 19 L (22-30) mmol/L BUN 26 H (9-20) mg/dL Creatinine 1.28 H (0.66-1.25) mg/dL Glucose 110 H (74-99) mg/dL POC Glucose (mg/dL) 147 H 144 H (70-110) mg/dL Calcium 7.9 L (8.4-10.2) mg/dL C-Reactive Protein 6.4 H (<1.0) mg/dL 08/31/23 08/31/23 Range/Units 13:16 16:21 WBC 24.1 H (3.8-10.6) k/uL RBC 3.46 L (4.30-5.90) m/uL Hgb 11.4 L (13.0-17.5) gm/dL Hct 35.3 L (39.0-53.0) % MCV 102.2 H (80.0-100.0) fL RDW 18.2 H (11.5-15.5) % Neutrophils # (Manual) 19.70 H (1.3-7.7) k/uL Lymphocytes # (Manual) 0.48 L (1.0-4.8) k/uL Monocytes # (Manual) 2.41 H (0-1.0) k/uL Metamyelocytes # (Man) 0.72 H (0) k/uL Myelocytes # (Manual) 0.72 H (0) k/uL Potassium (3.5-5.1) mmol/L Chloride (98-107) mmol/L Carbon Dioxide (22-30) mmol/L BUN (9-20) mg/dL Creatinine (0.66-1.25) mg/dL Glucose (74-99) mg/dL POC Glucose (mg/dL) 168 H (70-110) mg/dL Calcium (8.4-10.2) mg/dL C-Reactive Protein (<1.0) mg/dL Microbiology - Last 24 Hours (Table) 08/27/23 11:33 Blood Culture - Preliminary Blood Assessment and Plan (1) Weakness Current Visit: Yes Status: Acute Priority: High Code(s): R53.1 - WEAKNESS SNOMED Code(s): 63909198 (2) Pancytopenia due to antineoplastic chemotherapy Current Visit: Yes Status: Acute Priority: High Code(s): D61.810 - ANTINEOPLASTIC CHEMOTHERAPY INDUCED PANCYTOPENIA; T45.1X5A - ADVERSE EFFECT OF ANTINEOPLASTIC AND IMMUNOSUP DRUGS, INIT SNOMED Code(s): 101372465946486 (3) Pancreatic adenocarcinoma Current Visit: Yes Status: Acute Priority: High Code(s): C25.9 - MALIGNANT NEOPLASM OF PANCREAS, UNSPECIFIED SNOMED Code(s): 906778554 Plan: Weakness: -Due to the effects of chemotherapy, directly, and from cytopenias. Improvement is slow. Working with PT/OT, consult placed for eval for home PT. Pt states he wants to go home and not rehab. Plans on living with sister who is able to help him, agree with home PT and home nursing. Spoke with IM team regarding the same. -Continue supportive care with transfusions as needed, as well as IV hydration. Pancytopenia: -S/p 3 units PRBCs, Hgb improved today, 11.4. The patient was started on filgrastim, has been d/c, likely contributing to now noted leukocytosis. He has not required growth factors as an outpatient so far. WBC today 24.1 -There has been some mild increase in his temperature and chills noted during this admission. Cefepime started empirically, blood culture negative thus far. ID following, workup pending, will await further recommendations -Please transfuse for hemoglobin less than 7 or if symptomatic and transfuse for platelets less than 10,000 or if symptomatic Pancreatic adenocarcinoma: -Treatment plan will be reviewed and adjusted as appropriate, post discharge, following resolution of the acute issues. Decubitis ulcer: -Follows with wound care outpt -Wound care consult placed
[2023-08-31 20:15] LABS: Glucose,Whole Blood 159 mg/dL (70-110)
[2023-08-31 20:16] LABS: Appearance,Urine Clear (Clear); Bilirubin,Urine Negative (Negative); Blood,Urine Negative (Negative); Color,Urine Colorless; Glucose,Urine (UA) Negative (Negative); Ketones,Urine Negative (Negative); Leukocyte Esterase,Urine Negative (Negative); Nitrite,Urine Negative (Negative); Protein,Urine Negative (Negative); Specific Gravity,Urine 1.009 (1.001-1.035); Urobilinogen,Urine <2.0 mg/dL (<2.0)
[2023-08-31] MEDS: HYDROcodone/APAP 7.5-325MG 1 EACH TAB PO PRN (21:16)
[2023-08-31] MEDS: PRAVASTATIN SODIUM 20 MG TAB PO SCH (21:16)
[2023-09-01] MEDS: HYDROcodone/APAP 7.5-325MG 1 EACH TAB PO PRN ×4 (02:39→23:18)
[2023-09-01 05:51] LABS: Glucose,Whole Blood 142 mg/dL (70-110)
[2023-09-01] MEDS: MIDODRINE 5 MG TAB PO SCH ×3 (06:30→17:09)
[2023-09-01] MEDS: polyethylene glycoL 3350 17 GM POWD.PACK PO SCH (08:21)
[2023-09-01] MEDS: allopurinoL 100 MG TAB PO SCH (08:21)
[2023-09-01] MEDS: APIXABAN 5 MG TAB PO SCH ×2 (08:21→20:40)
[2023-09-01] MEDS: TAMSULOSIN 0.4 MG CAP.ER.24H PO SCH (08:21)
[2023-09-01] MEDS: CYANOCOBALAMIN 500 MCG TAB PO SCH (08:22)
[2023-09-01] MEDS: FAMOTIDINE 20 MG TAB PO SCH (08:22)
[2023-09-01] MEDS: CEFEPIME 2 GM in SODIUM CHLORIDE 0.9% 100 ML IVPB SCH ×2 (08:22→20:40)
[2023-09-01] MEDS: METOPROLOL TARTRATE 50 MG TAB PO SCH ×3 (08:22→20:40)
[2023-09-01 08:45] LABS: Anisocytosis Slight; HGB 11.3 gm/dL (13.0-17.5); Hypochromasia Slight; MCH 33.9 pg (25.0-35.0); MCHC 33.2 g/dL (31.0-37.0); Macrocytosis Moderate; Mean Platelet Volume 8.6; Platelet Count 249 k/uL (150-450); RBC 3.33 m/uL (4.30-5.90); RDW 18.1 % (11.5-15.5); WBC 20.4 k/uL (3.8-10.6)
[2023-09-01 08:59] LABS: African American GFR (CKD) 61 (>60 ml/min/1.73 sqM); Anion Gap 10 mmol/L; Blood Urea Nitrogen 30 mg/dL (9-20); C Reactive Protein 4.5 mg/dL (<1.0); Calcium 7.9 mg/dL (8.4-10.2); Carbon Dioxide 19 mmol/L (22-30); Chloride 110 mmol/L (98-107); Glucose 171 mg/dL (74-99); Non-African American GFR(CKD) 53 (>60 ml/min/1.73 sqM); Potassium 3.1 mmol/L (3.5-5.1); Sodium 139 mmol/L (137-145)
[2023-09-01] MEDS ORDERED: Potassium Replacement Protocol 1 EACH MISC MISCELLANE PRN (09:21)
--- NOTE | 2023-09-01 10:49 | P.PN ---
Subjective Progress Note Date: 09/01/23 History of present illness: This is a 68-year-old male patient of Dr. FELI Michael with past medical history of ischemic cardiomyopathy, coronary artery disease status post PCI in 1996, hypertension, mitral regurgitation, hyperlipidemia, remote history of tobacco use and dependence, persistent atrial fibrillation on eliquis, pancreatic cancer. Patient was previously evaluated for AICD implantation but was canceled due to the diagnosis of pancreatic cancer. Patient did have a hospitalization after starting chemotherapy and was dehydrated with diarrhea and subsequently had V. tach V. fib arrest with ROSC after 36 minutes of CPR and multiple shocks in January 2023. We have been asked to evaluate the patient for A. fib with RVR. Patient presented to the hospital due to acute kidney injury, chemotherapy induced pancytopenia and no pressure ulcer. Patient states that he was sitting in a chair was slid off and then was unable to get up for a long period of time. His CK was surprisingly normal on arrival. Patient does have chronic lower extremity edema. Telemetry is atrial fibrillation [id number] bpm WBC 17.6 and initially 0.3, hemoglobin 9.4 and initially 6.2. Platelet count 103. Potassium 3.8, BUN 24 creatinine 1.16 improved from 2.5. Urinalysis with slight blood. Home cardiac medications: Eliquis 5 mg twice daily, Lasix 40 mg daily, Imdur 30 mg daily, Lopressor 100 mg twice daily, Nitrostat as needed, pravastatin 29 g at bedtime, midodrine 5 mg twice daily Echocardiogram performed 07/11/23 revealed mildly increased left ventricular wall thickness. EF 25-30%, moderate aortic calcification however no significant aortic valve stenosis. Mild aortic insufficiency. Moderate mitral re gurgitation. RVSP 42. Lexiscan stress test EF 30%, fixed inferior wall defect with no reversible is chemia performed 08/09/2021 in the office. 08/30 Patient remains in atrial fibrillation running in the 130s and blood pressure 90/64. He states he does feel a little dizzy low short of breath sitting on edge of the bed but this first time he has been set up. He denies palpitations and no chest pain. 08/31 Patient is seen in follow-up. No new concerns from the patient. His heart rate is now in the 90s to 110 in atrial fibrillation, blood pressure 101/61. Patient is maintained on eliquis and metoprolol 50 mg 3 times daily. Patient has no new concerns. He just feels tired and fatigued. No chest pain no palpitations. 09/01 Patient remains in atrial fibrillation running between 85 and 107. He is currently on metoprolol 50 mg 3 times daily. Patient denies having any chest pain. He states he had an episode of lightheadedness with chest pain midsternal left side upper area. Pain is reproducible and tender to touch. Patient is complaining of pain to his but area secondary to decubitus ulcers. Physical examination: Gen: This is a 68 year old male sitting in chair and appears to be comfortable no acute distress. VS: reviewed HEENT: Head is atraumatic, normocephalic. Pupils equal, round. Sclerae is anicteric. LUNGS: Clear to auscultation. No wheezes or rhonchi. No intercostal retractions. HEART: Irregular rate and rhythm. No murmur. Tachycardic ABDOMEN: Soft No tenderness. EXTREMITIES: Mild bilateral pedal edema. Dressing on the left foot. NEUROLOGICAL: Patient is awake, alert and oriented x3. Assessment: Persistent atrial fibrillation with RVR Acute kidney injury Thrombocytopenia Pancreatic cancer Ischemic cardiomyopathy Coronary artery disease with PCI in 1996 Hypertension Hyperlipidemia Decubitus ulcers Chest pain, reproducible, musculoskeletal type Plan: Continue eliquis Continue Lopressor 50 mg 3 times daily No need to repeat echocardiogram Further recommendations to follow based upon clinical course Nurse practitioner note has been reviewed, I agree with documented findings and plan of care. Patient was seen and examined. Objective - Vital Signs Vital signs: Vital Signs Temp 98.1 F 09/01/23 04:00 Pulse 85 09/01/23 04:00 Resp 16 09/01/23 04:00 BP 100/63 09/01/23 04:00 Pulse Ox 97 09/01/23 08:17 FiO2 Intake & Output 08/31/23 09/01/23 09/01/23 18:59 06:59 18:59 Intake Total 240 Output Total 325 1900 Balance -85 -1900 Intake: Oral 240 Output: Urine 325 1900 Other: Voiding Method Indwelling Catheter Indwelling Catheter # Voids 1 # Bowel Movements 1 - Labs CBC & Chem 7: 08/31/23 13:16 09/01/23 08:21 Labs: Abnormal Lab Results - Last 24 Hours (Table) 08/31/23 08/31/23 08/31/23 Range/Units 08:21 08:27 11:29 WBC (3.8-10.6) k/uL RBC (4.30-5.90) m/uL Hgb (13.0-17.5) gm/dL Hct (39.0-53.0) % MCV (80.0-100.0) fL RDW (11.5-15.5) % Neutrophils # (Manual) (1.3-7.7) k/uL Lymphocytes # (Manual) (1.0-4.8) k/uL Monocytes # (Manual) (0-1.0) k/uL Metamyelocytes # (Man) (0) k/uL Myelocytes # (Manual) (0) k/uL Potassium 3.2 L (3.5-5.1) mmol/L Chloride 110 H (98-107) mmol/L Carbon Dioxide 19 L (22-30) mmol/L BUN 26 H (9-20) mg/dL Creatinine 1.28 H (0.66-1.25) mg/dL Glucose 110 H (74-99) mg/dL POC Glucose (mg/dL) 144 H (70-110) mg/dL Calcium 7.9 L (8.4-10.2) mg/dL C-Reactive Protein 6.4 H (<1.0) mg/dL Procalcitonin 2.03 H (0.02-0.09) ng/mL 08/31/23 08/31/23 08/31/23 Range/Units 13:16 16:21 20:07 WBC 24.1 H (3.8-10.6) k/uL RBC 3.46 L (4.30-5.90) m/uL Hgb 11.4 L (13.0-17.5) gm/dL Hct 35.3 L (39.0-53.0) % MCV 102.2 H (80.0-100.0) fL RDW 18.2 H (11.5-15.5) % Neutrophils # (Manual) 19.70 H (1.3-7.7) k/uL Lymphocytes # (Manual) 0.48 L (1.0-4.8) k/uL Monocytes # (Manual) 2.41 H (0-1.0) k/uL Metamyelocytes # (Man) 0.72 H (0) k/uL Myelocytes # (Manual) 0.72 H (0) k/uL Potassium (3.5-5.1) mmol/L Chloride (98-107) mmol/L Carbon Dioxide (22-30) mmol/L BUN (9-20) mg/dL Creatinine (0.66-1.25) mg/dL Glucose (74-99) mg/dL POC Glucose (mg/dL) 168 H 159 H (70-110) mg/dL Calcium (8.4-10.2) mg/dL C-Reactive Protein (<1.0) mg/dL Procalcitonin (0.02-0.09) ng/mL 09/01/23 Range/Units 05:46 WBC (3.8-10.6) k/uL RBC (4.30-5.90) m/uL Hgb (13.0-17.5) gm/dL Hct (39.0-53.0) % MCV (80.0-100.0) fL RDW (11.5-15.5) % Neutrophils # (Manual) (1.3-7.7) k/uL Lymphocytes # (Manual) (1.0-4.8) k/uL Monocytes # (Manual) (0-1.0) k/uL Metamyelocytes # (Man) (0) k/uL Myelocytes # (Manual) (0) k/uL Potassium (3.5-5.1) mmol/L Chloride (98-107) mmol/L Carbon Dioxide (22-30) mmol/L BUN (9-20) mg/dL Creatinine (0.66-1.25) mg/dL Glucose (74-99) mg/dL POC Glucose (mg/dL) 142 H (70-110) mg/dL Calcium (8.4-10.2) mg/dL C-Reactive Protein (<1.0) mg/dL Procalcitonin (0.02-0.09) ng/mL
[2023-09-01] MEDS: POTASSIUM CHLORIDE ER 20 MEQ TAB.ER PO SCH (11:10)
[2023-09-01] MEDS: HYDROmorphone 1 MG/ML 1 ML SYRINGE IVP PRN ×2 (11:15→23:18)
[2023-09-01 11:21] LABS: Glucose,Whole Blood 187 mg/dL (70-110)
[2023-09-01 13:36] LABS: Band Neutrophils % 1 %; Lymphocytes # (M) 1.02 k/uL (1.0-4.8); Metamyelocytes # (M) 0.41 k/uL (0); Metamyelocytes % 2 %; Monocytes # (M) 1.84 k/uL (0-1.0); Myelocytes # (M) 0.41 k/uL (0); Myelocytes % 2 %; Neutrophils % (M) 82 %; Nucleated Red Blood Cells 0 /100 WBC (0-0); Total Cells Counted 200
[2023-09-01 13:39] LABS: Poikilocytosis (M) Present
[2023-09-01 13:45] LABS: Polychromasia Present; Toxic Granulation Present
[2023-09-01] MEDS: COLLAGENASE 250 UNIT/GM OINTMENT 30 GM TUBE TOPICAL SCH (15:09)
--- NOTE | 2023-09-01 15:32 | P.PN ---
Subjective Progress Note Date: 09/01/23 Principal diagnosis: Leukocytosis Patient is a 68-year-old male with a past medical history significant for atrial fibrillation diabetes mellitus hypertension hyperlipidemia also history of localized pancreatic cancer currently on chemotherapy last chemo was on 08/18/2023, presented to hospital with weakness and decreased oral intake did have leukopenia on admission and one low diffusion 100F patient has received Filgrastim during this admission and subsequently noticed to have elevated white count probably this infection disease consultation. On today's evaluation that is 09/01/2023, the patient remains to be afebrile, the patient is breathing comfortably on room air , the patient denies any chest pain or any cough , patient denies nausea/vomiting diarrhea and no abdominal pain Patient white count slightly down to 20.4, creatinine 1.36 CRP 4.5, procalcito gerber is 2.03 Objective - Vital Signs Vital signs: Vital Signs Temp 97.5 F L 09/01/23 11:34 Pulse 105 H 09/01/23 11:34 Resp 16 09/01/23 11:34 BP 104/71 09/01/23 11:34 Pulse Ox 97 09/01/23 11:34 FiO2 Intake & Output 08/31/23 09/01/23 09/01/23 18:59 06:59 18:59 Intake Total 240 720 Output Total 325 1900 350 Balance -85 -1900 370 Weight 73.482 kg Intake: Oral 240 720 Output: Urine 325 1900 350 Other: Voiding Method Indwelling Catheter Indwelling Catheter Indwelling Catheter # Voids 1 # Bowel Movements 1 - Exam GENERAL DESCRIPTION: An elderly male lying in bed in no distress RESPIRATORY SYSTEM: Unlabored breathing , clear to auscultation anteriorly HEART: S1 S2 regular rate and rhythm , ABDOMEN: Soft , no tenderness EXTREMITIES: No edema feet - Labs CBC & Chem 7: 09/01/23 08:21 09/01/23 08:21 Labs: Abnormal Lab Results - Last 24 Hours (Table) 08/31/23 08/31/23 08/31/23 Range/Units 08:21 13:16 16:21 WBC 24.1 H (3.8-10.6) k/uL RBC 3.46 L (4.30-5.90) m/uL Hgb 11.4 L (13.0-17.5) gm/dL Hct 35.3 L (39.0-53.0) % MCV 102.2 H (80.0-100.0) fL RDW 18.2 H (11.5-15.5) % Neutrophils # (Manual) 19.70 H (1.3-7.7) k/uL Lymphocytes # (Manual) 0.48 L (1.0-4.8) k/uL Monocytes # (Manual) 2.41 H (0-1.0) k/uL Metamyelocytes # (Man) 0.72 H (0) k/uL Myelocytes # (Manual) 0.72 H (0) k/uL Potassium (3.5-5.1) mmol/L Chloride (98-107) mmol/L Carbon Dioxide (22-30) mmol/L BUN (9-20) mg/dL Creatinine (0.66-1.25) mg/dL Glucose (74-99) mg/dL POC Glucose (mg/dL) 168 H (70-110) mg/dL Calcium (8.4-10.2) mg/dL C-Reactive Protein (<1.0) mg/dL Procalcitonin 2.03 H (0.02-0.09) ng/mL 08/31/23 09/01/23 09/01/23 Range/Units 20:07 05:46 08:21 WBC 20.4 H (3.8-10.6) k/uL RBC 3.33 L (4.30-5.90) m/uL Hgb 11.3 L (13.0-17.5) gm/dL Hct 34.0 L (39.0-53.0) % MCV 102.0 H (80.0-100.0) fL RDW 18.1 H (11.5-15.5) % Neutrophils # (Manual) (1.3-7.7) k/uL Lymphocytes # (Manual) (1.0-4.8) k/uL Monocytes # (Manual) (0-1.0) k/uL Metamyelocytes # (Man) (0) k/uL Myelocytes # (Manual) (0) k/uL Potassium (3.5-5.1) mmol/L Chloride (98-107) mmol/L Carbon Dioxide (22-30) mmol/L BUN (9-20) mg/dL Creatinine (0.66-1.25) mg/dL Glucose (74-99) mg/dL POC Glucose (mg/dL) 159 H 142 H (70-110) mg/dL Calcium (8.4-10.2) mg/dL C-Reactive Protein (<1.0) mg/dL Procalcitonin (0.02-0.09) ng/mL 09/01/23 09/01/23 Range/Units 08:21 11:20 WBC (3.8-10.6) k/uL RBC (4.30-5.90) m/uL Hgb (13.0-17.5) gm/dL Hct (39.0-53.0) % MCV (80.0-100.0) fL RDW (11.5-15.5) % Neutrophils # (Manual) (1.3-7.7) k/uL Lymphocytes # (Manual) (1.0-4.8) k/uL Monocytes # (Manual) (0-1.0) k/uL Metamyelocytes # (Man) (0) k/uL Myelocytes # (Manual) (0) k/uL Potassium 3.1 L (3.5-5.1) mmol/L Chloride 110 H (98-107) mmol/L Carbon Dioxide 19 L (22-30) mmol/L BUN 30 H (9-20) mg/dL Creatinine 1.36 H (0.66-1.25) mg/dL Glucose 171 H (74-99) mg/dL POC Glucose (mg/dL) 187 H (70-110) mg/dL Calcium 7.9 L (8.4-10.2) mg/dL C-Reactive Protein 4.5 H (<1.0) mg/dL Procalcitonin (0.02-0.09) ng/mL Assessment and Plan (1) Leukocytosis Current Visit: Yes Status: Acute Code(s): D72.829 - ELEVATED WHITE BLOOD CELL COUNT, UNSPECIFIED SNOMED Code(s): 291078316 (2) Pressure ulcer of sacral region, stage 3 Current Visit: Yes Status: Acute Code(s): L89.153 - PRESSURE ULCER OF SACRAL REGION, STAGE 3 SNOMED Code(s): 14415465821670 Plan: 1patient with leukocytosis in this patient who did have a history of pancreatic cancer on Uroject chemotherapy last chemotherapy on 08/18/2023 admitted to hospital with weakness falls unable to get out of the floor patient was noticed to be leukopenic on admission and has received filgrastim, could be related to that as the patient has significant fever patient also have pressure ulcer to the sacral area have some necrotic changes and may be responsible for some of the elevated white count but no significant cellulitis chest x-ray was negative abdominal soft on clinical examination 2-UA has been negative, CRP procalcitonin are mildly elevated 3-patient to continue with cefepime as the white count is trending down hopefully finishing therapy with oral antibiotics Dictation was produced using [employer] dictation software. please excuse any gramma tical, word or spelling errors. Time with Patient: Less than 30
--- NOTE | 2023-09-01 15:49 | P.PN ---
Subjective Progress Note Date: 09/01/23 68-year-old male with history of pancreatic last chemotherapy dose was August 18, 2023. Patient comes in for a slip and fall from home. Patient did have an injury to the left toe/foot while getting up. He came in by EMS for evaluation. Patient did have a temperature was also tachycardic he is being worked up for underlying infection by ID to have an increasing white count went from 0.5 on admission, to 5.2 and now currently 23.1. When he was neutropenic this admission he did receive a dose of filgstrim. Patient is on IV cefepime empirically. CRP elevated at 6.4. The initial plan was discharge to rehab however patient now wants to be discharged to his sisters house states that she will be caring for him. Heart rate up in the 120s, cardiology following for the afib RVR. He does have a stage 2 sacral decub that has some necrotic changes and local wound care is in place with santyl. Objective - Vital Signs Vital signs: Vital Signs Temp 97.5 F L 09/01/23 11:34 Pulse 105 H 09/01/23 11:34 Resp 16 09/01/23 11:34 BP 104/71 09/01/23 11:34 Pulse Ox 97 09/01/23 11:34 FiO2 Intake & Output 08/31/23 09/01/23 09/01/23 18:59 06:59 18:59 Intake Total 240 720 Output Total 325 1900 350 Balance -85 -1900 370 Weight 73.482 kg Intake: Oral 240 720 Output: Urine 325 1900 350 Other: Voiding Method Indwelling Catheter Indwelling Catheter Indwelling Catheter # Voids 1 # Bowel Movements 1 - Exam Patient is lying in the bed , no acute distress, awake alert and oriented.. HEENT: Normocephalic. Neck is supple. Pupils reactive. Nostrils clear. Oral cavity is moist. Neck reveals no JVD, carotid bruits, or thyromegaly. CHEST EXAMINATION: Trachea is central. Symmetrical expansion. Bibasilar diminished sounds.. CARDIAC: Normal S1, S2 with no gallops. No murmurs ABDOMEN: Soft. Bowel sounds present. Mild epigastric tenderness. No guarding or rigidity.. No organomegaly. No abdominal bruits. Extremities: Patient does have left lower extremity 2+ swelling. Left great toe wound which is wrapped with gauze. No active bleeding.. No clubbing or cyanosis Neurologically awake, alert, oriented x3 with well-coordinated movements. No gross focal deficits noted, generalized weakness. Skin: No rash or skin lesions. Sacral decub ulcer3 Psychiatric: Coperative. Nonsuicidal, Musculoskeletal: No joint swelling or deformity. Stage 2 sacral decub. - Labs CBC & Chem 7: 09/01/23 08:21 09/01/23 08:21 Labs: Abnormal Lab Results - Last 24 Hours (Table) 08/31/23 08/31/23 08/31/23 Range/Units 08:21 13:16 16:21 WBC 24.1 H (3.8-10.6) k/uL RBC 3.46 L (4.30-5.90) m/uL Hgb 11.4 L (13.0-17.5) gm/dL Hct 35.3 L (39.0-53.0) % MCV 102.2 H (80.0-100.0) fL RDW 18.2 H (11.5-15.5) % Neutrophils # (Manual) 19.70 H (1.3-7.7) k/uL Lymphocytes # (Manual) 0.48 L (1.0-4.8) k/uL Monocytes # (Manual) 2.41 H (0-1.0) k/uL Metamyelocytes # (Man) 0.72 H (0) k/uL Myelocytes # (Manual) 0.72 H (0) k/uL Potassium (3.5-5.1) mmol/L Chloride (98-107) mmol/L Carbon Dioxide (22-30) mmol/L BUN (9-20) mg/dL Creatinine (0.66-1.25) mg/dL Glucose (74-99) mg/dL POC Glucose (mg/dL) 168 H (70-110) mg/dL Calcium (8.4-10.2) mg/dL C-Reactive Protein (<1.0) mg/dL Procalcitonin 2.03 H (0.02-0.09) ng/mL 08/31/23 09/01/23 09/01/23 Range/Units 20:07 05:46 08:21 WBC 20.4 H (3.8-10.6) k/uL RBC 3.33 L (4.30-5.90) m/uL Hgb 11.3 L (13.0-17.5) gm/dL Hct 34.0 L (39.0-53.0) % MCV 102.0 H (80.0-100.0) fL RDW 18.1 H (11.5-15.5) % Neutrophils # (Manual) 16.90 H (1.3-7.7) k/uL Lymphocytes # (Manual) (1.0-4.8) k/uL Monocytes # (Manual) 1.84 H (0-1.0) k/uL Metamyelocytes # (Man) 0.41 H (0) k/uL Myelocytes # (Manual) 0.41 H (0) k/uL Potassium (3.5-5.1) mmol/L Chloride (98-107) mmol/L Carbon Dioxide (22-30) mmol/L BUN (9-20) mg/dL Creatinine (0.66-1.25) mg/dL Glucose (74-99) mg/dL POC Glucose (mg/dL) 159 H 142 H (70-110) mg/dL Calcium (8.4-10.2) mg/dL C-Reactive Protein (<1.0) mg/dL Procalcitonin (0.02-0.09) ng/mL 09/01/23 09/01/23 Range/Units 08:21 11:20 WBC (3.8-10.6) k/uL RBC (4.30-5.90) m/uL Hgb (13.0-17.5) gm/dL Hct (39.0-53.0) % MCV (80.0-100.0) fL RDW (11.5-15.5) % Neutrophils # (Manual) (1.3-7.7) k/uL Lymphocytes # (Manual) (1.0-4.8) k/uL Monocytes # (Manual) (0-1.0) k/uL Metamyelocytes # (Man) (0) k/uL Myelocytes # (Manual) (0) k/uL Potassium 3.1 L (3.5-5.1) mmol/L Chloride 110 H (98-107) mmol/L Carbon Dioxide 19 L (22-30) mmol/L BUN 30 H (9-20) mg/dL Creatinine 1.36 H (0.66-1.25) mg/dL Glucose 171 H (74-99) mg/dL POC Glucose (mg/dL) 187 H (70-110) mg/dL Calcium 7.9 L (8.4-10.2) mg/dL C-Reactive Protein 4.5 H (<1.0) mg/dL Procalcitonin (0.02-0.09) ng/mL Assessment and Plan Assessment: Fever and leukocytosis concern for underlying infection work up in progress Stage 2 sacral decub possible source of infection Generalized weakness and slid onto the floor while getting into the chair. Denies any hitting his head. Pancytopenia likely due to chemotherapy, improving Pancreatic tumor. Recently diagnosed currently undergoing chemotherapy last dose about a week ago Acute kidney injury on CKD stage III with creatinine level 2.5 on admission. Baseline 1.7. Lactic acidosis, improved Moderate to severe protein calorie malnutrition Coronary artery history of stent placement Paroxysmal atrial fibrillation on anticoagulation with Eliquis. Prior history of cardioversion. currently with rapid ventricular rate. Hypertension Diabetes type 2 insulin-dependent Hyperlipidemia Osteoarthritis Prior history of smoking DVT prophylaxis patient is already on Eliquis Plan: Patient is status post 2 units of PRBC. Hemoglobin is stable and WBC improved. Now with leukocytosis and pt is being worked up for underlying infection on will continue on empiric antibiotics with IV cefepime Pain management with IV Dilaudid and added [place]. Continue home medications including midodrine.. Cardiology was consulted due to rapid ventricular rate. Wound care is following Oncology is on board.Not planning chemo while in the hospital.. Prognosis is guarded. PT OT will be consulted, patient does not want subacute rehab would like to DC home with sister to her house and sister states she can help care for him. Follow up labs in AM.
[2023-09-01 16:33] LABS: Glucose,Whole Blood 177 mg/dL (70-110)
[2023-09-01 20:16] LABS: Glucose,Whole Blood 210 mg/dL (70-110)
[2023-09-01] MEDS: PRAVASTATIN SODIUM 20 MG TAB PO SCH (20:40)
[2023-09-02] MEDS: HYDROmorphone 1 MG/ML 1 ML SYRINGE IVP PRN ×4 (03:51→20:38)
[2023-09-02] MEDS: MIDODRINE 5 MG TAB PO SCH ×3 (06:08→17:15)
[2023-09-02 06:10] LABS: Glucose,Whole Blood 141 mg/dL (70-110)
[2023-09-02] MEDS: HYDROcodone/APAP 7.5-325MG 1 EACH TAB PO PRN ×3 (06:11→23:58)
[2023-09-02] MEDS: METOPROLOL TARTRATE 50 MG TAB PO SCH ×3 (09:56→20:10)
[2023-09-02] MEDS: APIXABAN 5 MG TAB PO SCH ×2 (09:56→20:10)
[2023-09-02] MEDS: CYANOCOBALAMIN 500 MCG TAB PO SCH (09:56)
[2023-09-02] MEDS: allopurinoL 100 MG TAB PO SCH (09:56)
[2023-09-02] MEDS: CEFEPIME 2 GM in SODIUM CHLORIDE 0.9% 100 ML IVPB SCH (09:57)
[2023-09-02] MEDS: TAMSULOSIN 0.4 MG CAP.ER.24H PO SCH (09:57)
[2023-09-02] MEDS: FAMOTIDINE 20 MG TAB PO SCH (09:57)
[2023-09-02] MEDS: polyethylene glycoL 3350 17 GM POWD.PACK PO SCH (09:57)
[2023-09-02 10:06] LABS: Anisocytosis Slight; HCT 35.8 % (39.0-53.0); HGB 11.3 gm/dL (13.0-17.5); Hypochromasia Moderate; MCH 32.4 pg (25.0-35.0); MCHC 31.6 g/dL (31.0-37.0); MCV 102.6 fL (80.0-100.0); Macrocytosis Moderate; Mean Platelet Volume 8.6; Platelet Count 328 k/uL (150-450); RBC 3.49 m/uL (4.30-5.90); RDW 18.2 % (11.5-15.5); WBC 21.3 k/uL (3.8-10.6)
[2023-09-02 10:16] LABS: African American GFR (CKD) 71 (>60 ml/min/1.73 sqM); Anion Gap 12 mmol/L; Blood Urea Nitrogen 31 mg/dL (9-20); Calcium 8.1 mg/dL (8.4-10.2); Carbon Dioxide 18 mmol/L (22-30); Chloride 110 mmol/L (98-107); Glucose 171 mg/dL (74-99); Non-African American GFR(CKD) 61 (>60 ml/min/1.73 sqM); Potassium 3.8 mmol/L (3.5-5.1); Sodium 140 mmol/L (137-145)
[2023-09-02 10:53] LABS: Band Neutrophils % 3 %; Basophils # (M) 0.21 k/uL (0-0.2); Lymphocytes # (M) 2.34 k/uL (1.0-4.8); Metamyelocytes # (M) 0.43 k/uL (0); Metamyelocytes % 2 %; Monocytes # (M) 1.92 k/uL (0-1.0); Myelocytes # (M) 0.43 k/uL (0); Myelocytes % 2 %; Neutrophils % (M) 75 %; Nucleated Red Blood Cells 0 /100 WBC (0-0); Total Cells Counted 200
--- NOTE | 2023-09-02 11:06 | P.PN ---
Subjective Progress Note Date: 09/02/23 History of present illness: This is a 68-year-old male patient of Dr. FELI Michael with past medical history of ischemic cardiomyopathy, coronary artery disease status post PCI in 1996, hypertension, mitral regurgitation, hyperlipidemia, remote history of tobacco use and dependence, persistent atrial fibrillation on eliquis, pancreatic cancer. Patient was previously evaluated for AICD implantation but was canceled due to the diagnosis of pancreatic cancer. Patient did have a hospitalization after starting chemotherapy and was dehydrated with diarrhea and subsequently had V. tach V. fib arrest with ROSC after 36 minutes of CPR and multiple shocks in January 2023. We have been asked to evaluate the patient for A. fib with RVR. Patient presented to the hospital due to acute kidney injury, chemotherapy induced pancytopenia and no pressure ulcer. Patient states that he was sitting in a chair was slid off and then was unable to get up for a long period of time. His CK was surprisingly normal on arrival. Patient does have chronic lower extremity edema. Telemetry is atrial fibrillation [id number] bpm WBC 17.6 and initially 0.3, hemoglobin 9.4 and initially 6.2. Platelet count 103. Potassium 3.8, BUN 24 creatinine 1.16 improved from 2.5. Urinalysis with slight blood. Home cardiac medications: Eliquis 5 mg twice daily, Lasix 40 mg daily, Imdur 30 mg daily, Lopressor 100 mg twice daily, Nitrostat as needed, pravastatin 29 g at bedtime, midodrine 5 mg twice daily Echocardiogram performed 07/11/23 revealed mildly increased left ventricular wall thickness. EF 25-30%, moderate aortic calcification however no significant aortic valve stenosis. Mild aortic insufficiency. Moderate mitral re gurgitation. RVSP 42. Lexiscan stress test EF 30%, fixed inferior wall defect with no reversible is chemia performed 08/09/2021 in the office. 08/30 Patient remains in atrial fibrillation running in the 130s and blood pressure 90/64. He states he does feel a little dizzy low short of breath sitting on edge of the bed but this first time he has been set up. He denies palpitations and no chest pain. 08/31 Patient is seen in follow-up. No new concerns from the patient. His heart rate is now in the 90s to 110 in atrial fibrillation, blood pressure 101/61. Patient is maintained on eliquis and metoprolol 50 mg 3 times daily. Patient has no new concerns. He just feels tired and fatigued. No chest pain no palpitations. 09/01 Patient remains in atrial fibrillation running between 85 and 107. He is currently on metoprolol 50 mg 3 times daily. Patient denies having any chest pain. He states he had an episode of lightheadedness with chest pain midsternal left side upper area. Pain is reproducible and tender to touch. Patient is complaining of pain to his but area secondary to decubitus ulcers. 09/02 Patient is maintained on eliquis and Lopressor 50 mg 3 times daily. Heart rate is running in the 80s and 90s, blood pressure 112/72. Patient continues to have generalized fatigue, back pain secondary to decubitus ulcers. No palpitations, chest pain. Physical examination: Gen: This is a 68 year old male sitting in chair and appears to be comfortable no acute distress. VS: reviewed HEENT: Head is atraumatic, normocephalic. Pupils equal, round. Sclerae is anicteric. LUNGS: Clear to auscultation. No wheezes or rhonchi. No intercostal retractions. HEART: Irregular rate and rhythm. No murmur. Tachycardic ABDOMEN: Soft No tenderness. EXTREMITIES: Mild bilateral pedal edema. Dressing on the left foot. NEUROLOGICAL: Patient is awake, alert and oriented x3. Assessment: Persistent atrial fibrillation with RVR Acute kidney injury Thrombocytopenia Pancreatic cancer Ischemic cardiomyopathy Coronary artery disease with PCI in 1996 Hypertension Hyperlipidemia Decubitus ulcers Chest pain, reproducible, musculoskeletal type Plan: Continue eliquis Continue Lopressor 50 mg 3 times daily No need to repeat echocardiogram Further recommendations to follow based upon clinical course Nurse practitioner note has been reviewed, I agree with documented findings and plan of care. Patient was seen and examined. Objective - Vital Signs Vital signs: Vital Signs Temp 97.5 F L 09/02/23 04:00 Pulse 91 09/02/23 04:00 Resp 16 09/02/23 04:00 BP 112/72 09/02/23 04:00 Pulse Ox 95 09/02/23 04:00 FiO2 Intake & Output 09/01/23 09/02/23 09/02/23 18:59 06:59 18:59 Intake Total 960 Output Total 350 920 Balance 610 -920 Weight 73.482 kg Intake: Oral 960 Output: Urine 350 920 Other: Voiding Method Indwelling Catheter Indwelling Catheter # Bowel Movements 1 - Labs CBC & Chem 7: 09/02/23 08:03 09/02/23 08:03 Labs: Abnormal Lab Results - Last 24 Hours (Table) 09/01/23 09/01/23 09/01/23 Range/Units 08:21 08:21 11:20 WBC 20.4 H (3.8-10.6) k/uL RBC 3.33 L (4.30-5.90) m/uL Hgb 11.3 L (13.0-17.5) gm/dL Hct 34.0 L (39.0-53.0) % MCV 102.0 H (80.0-100.0) fL RDW 18.1 H (11.5-15.5) % Neutrophils # (Manual) 16.90 H (1.3-7.7) k/uL Monocytes # (Manual) 1.84 H (0-1.0) k/uL Metamyelocytes # (Man) 0.41 H (0) k/uL Myelocytes # (Manual) 0.41 H (0) k/uL Potassium 3.1 L (3.5-5.1) mmol/L Chloride 110 H (98-107) mmol/L Carbon Dioxide 19 L (22-30) mmol/L BUN 30 H (9-20) mg/dL Creatinine 1.36 H (0.66-1.25) mg/dL Glucose 171 H (74-99) mg/dL POC Glucose (mg/dL) 187 H (70-110) mg/dL Calcium 7.9 L (8.4-10.2) mg/dL C-Reactive Protein 4.5 H (<1.0) mg/dL 09/01/23 09/01/23 09/02/23 Range/Units 16:32 20:14 06:09 WBC (3.8-10.6) k/uL RBC (4.30-5.90) m/uL Hgb (13.0-17.5) gm/dL Hct (39.0-53.0) % MCV (80.0-100.0) fL RDW (11.5-15.5) % Neutrophils # (Manual) (1.3-7.7) k/uL Monocytes # (Manual) (0-1.0) k/uL Metamyelocytes # (Man) (0) k/uL Myelocytes # (Manual) (0) k/uL Potassium (3.5-5.1) mmol/L Chloride (98-107) mmol/L Carbon Dioxide (22-30) mmol/L BUN (9-20) mg/dL Creatinine (0.66-1.25) mg/dL Glucose (74-99) mg/dL POC Glucose (mg/dL) 177 H 210 H 141 H (70-110) mg/dL Calcium (8.4-10.2) mg/dL C-Reactive Protein (<1.0) mg/dL Microbiology - Last 24 Hours (Table) 08/27/23 11:33 Blood Culture - Final Blood
--- NOTE | 2023-09-02 11:17 | P.PN ---
Subjective Progress Note Date: 09/02/23 Principal diagnosis: Leukocytosis Patient is a 68-year-old male with a past medical history significant for atrial fibrillation diabetes mellitus hypertension hyperlipidemia also history of localized pancreatic cancer currently on chemotherapy last chemo was on 08/18/2023, presented to hospital with weakness and decreased oral intake did have leukopenia on admission and one low diffusion 100F patient has received Filgrastim during this admission and subsequently noticed to have elevated white count probably this infection disease consultation. On today's evaluation that is 09/02/2023, the patient denies any fever or any chills, the patient is breathing comfortably on room air without any need for supplemental oxygen, the patient denies any chest pain or any cough , patient denies abdominal pain, no nausea/vomiting diarrhea , patient is complaining of more discomfort in the sacral wound today Patient white count slightly up to 21.3, creatinine is 1.21 CRP 4.5, procalcitonin is 2.03 Objective - Vital Signs Vital signs: Vital Signs Temp 97.5 F L 09/02/23 04:00 Pulse 91 09/02/23 04:00 Resp 16 09/02/23 04:00 BP 112/72 09/02/23 04:00 Pulse Ox 95 09/02/23 04:00 FiO2 Intake & Output 09/01/23 09/02/23 09/02/23 18:59 06:59 18:59 Intake Total 960 180 Output Total 350 920 Balance 610 -920 180 Weight 73.482 kg Intake: Oral 960 180 Output: Urine 350 920 Other: Voiding Method Indwelling Catheter Indwelling Catheter # Bowel Movements 1 - Exam GENERAL DESCRIPTION: An elderly male lying in bed in no distress RESPIRATORY SYSTEM: Unlabored breathing , clear to auscultation anteriorly HEART: S1 S2 regular rate and rhythm , ABDOMEN: Soft , no tenderness EXTREMITIES: No edema feet - Labs CBC & Chem 7: 09/02/23 08:03 09/02/23 08:03 Labs: Abnormal Lab Results - Last 24 Hours (Table) 09/01/23 09/01/23 09/01/23 Range/Units 08:21 11:20 16:32 WBC 20.4 H (3.8-10.6) k/uL RBC 3.33 L (4.30-5.90) m/uL Hgb 11.3 L (13.0-17.5) gm/dL Hct 34.0 L (39.0-53.0) % MCV 102.0 H (80.0-100.0) fL RDW 18.1 H (11.5-15.5) % Neutrophils # (Manual) 16.90 H (1.3-7.7) k/uL Monocytes # (Manual) 1.84 H (0-1.0) k/uL Metamyelocytes # (Man) 0.41 H (0) k/uL Myelocytes # (Manual) 0.41 H (0) k/uL POC Glucose (mg/dL) 187 H 177 H (70-110) mg/dL 09/01/23 09/02/23 Range/Units 20:14 06:09 WBC (3.8-10.6) k/uL RBC (4.30-5.90) m/uL Hgb (13.0-17.5) gm/dL Hct (39.0-53.0) % MCV (80.0-100.0) fL RDW (11.5-15.5) % Neutrophils # (Manual) (1.3-7.7) k/uL Monocytes # (Manual) (0-1.0) k/uL Metamyelocytes # (Man) (0) k/uL Myelocytes # (Manual) (0) k/uL POC Glucose (mg/dL) 210 H 141 H (70-110) mg/dL Microbiology - Last 24 Hours (Table) 08/27/23 11:33 Blood Culture - Final Blood Assessment and Plan (1) Leukocytosis Current Visit: Yes Status: Acute Code(s): D72.829 - ELEVATED WHITE BLOOD CELL COUNT, UNSPECIFIED SNOMED Code(s): 280124552 (2) Pressure ulcer of sacral region, stage 3 Current Visit: Yes Status: Acute Code(s): L89.153 - PRESSURE ULCER OF SACRAL REGION, STAGE 3 SNOMED Code(s): 13550719425240 Plan: 1patient with leukocytosis in this patient who did have a history of pancreatic cancer on Uroject chemotherapy last chemotherapy on 08/18/2023 admitted to hospital with weakness falls unable to get out of the floor patient was noticed to be leukopenic on admission and has received filgrastim, could be related to that as the patient has significant fever patient also have pressure ulcer to the sacral area have some necrotic changes and may be responsible for some of the elevated white count but no significant cellulitis chest x-ray was negative abdominal soft on clinical examination 2-UA has been negative, CRP procalcitonin are mildly elevated 3-patient did have slightly elevated white count today we will discontinue cefepime, start the patient on Unasyn and see clinical response Dictation was produced using [employer] dictation software. please excuse any grammatical, word or spelling errors. Time with Patient: Less than 30
[2023-09-02 11:34] LABS: Glucose,Whole Blood 213 mg/dL (70-110)
[2023-09-02] MEDS: AMPICILLIN-SULBACTAM 3 GM in SODIUM CHLORIDE 0.9% 100 ML IVPB SCH ×2 (13:29→17:15)
[2023-09-02] MEDS: COLLAGENASE 250 UNIT/GM OINTMENT 30 GM TUBE TOPICAL SCH (13:32)
[2023-09-02 16:26] LABS: Glucose,Whole Blood 242 mg/dL (70-110)
--- NOTE | 2023-09-02 16:44 | P.PN ---
Subjective Progress Note Date: 09/02/23 68-year-old male with history of pancreatic last chemotherapy dose was August 18, 2023. Patient comes in for a slip and fall from home. Patient did have an injury to the left toe/foot while getting up. He came in by EMS for evaluation. Patient did have a temperature was also tachycardic he is being worked up for underlying infection by ID to have an increasing white count went from 0.5 on admission, to 5.2 and now currently 23.1. When he was neutropenic this admission he did receive a dose of filgstrim. Patient is on IV cefepime empirically. CRP elevated at 6.4. The initial plan was discharge to rehab however patient now wants to be discharged to his sisters house states that she will be caring for him. Heart rate up in the 120s, cardiology following for the afib RVR. He does have a stage 2 sacral decub that has some necrotic changes and local wound care is in place with santyl. 09/02/2023 --the patient denies any fever or any chills, the patient is breathing c omfortably on room air without any need for supplemental oxygen, the patient denies any chest pain or any cough , patient denies abdominal pain, no nausea/vomiting diarrhea , patient is complaining of more discomfort in the sacral wound today Patient white count slightly up to 21.3, creatinine is 1.21 CRP 4.5, procalcitonin is 2.03 -- ID following and patient switched from IV cefepime to IV Unasyn - Patient is rate controlled with Lopressor 50 mg 3 times a day for persistent atrial fibrillation with RVR; remains anticoagulated Objective - Vital Signs Vital signs: Vital Signs Temp 97.5 F L 09/02/23 09:50 Pulse 95 09/02/23 09:50 Resp 16 09/02/23 09:50 BP 98/55 09/02/23 09:50 Pulse Ox 98 09/02/23 09:50 FiO2 Intake & Output 09/01/23 09/02/23 09/02/23 18:59 06:59 18:59 Intake Total 960 180 Output Total 350 920 Balance 610 -920 180 Weight 73.482 kg Intake: Oral 960 180 Output: Urine 350 920 Other: Voiding Method Indwelling Catheter Indwelling Catheter # Bowel Movements 1 - Exam Patient is lying in the bed , no acute distress, awake alert and oriented.. HEENT: Normocephalic. Neck is supple. Pupils reactive. Nostrils clear. Oral cavity is moist. Neck reveals no JVD, carotid bruits, or thyromegaly. CHEST EXAMINATION: Trachea is central. Symmetrical expansion. Bibasilar diminished sounds.. CARDIAC: Normal S1, S2 with no gallops. No murmurs ABDOMEN: Soft. Bowel sounds present. Mild epigastric tenderness. No guarding or rigidity.. No organomegaly. No abdominal bruits. Extremities: Patient does have left lower extremity 2+ swelling. Left great toe wound which is wrapped with gauze. No active bleeding.. No clubbing or cyanosis Neurologically awake, alert, oriented x3 with well-coordinated movements. No gross focal deficits noted, generalized weakness. Skin: No rash or skin lesions. Sacral decub ulcer3 Psychiatric: Coperative. Nonsuicidal, Musculoskeletal: No joint swelling or deformity. Stage 2 sacral decub. - Labs CBC & Chem 7: 09/02/23 08:03 09/02/23 08:03 Labs: Abnormal Lab Results - Last 24 Hours (Table) 09/01/23 09/01/23 09/01/23 Range/Units 08:21 16:32 20:14 WBC (3.8-10.6) k/uL RBC (4.30-5.90) m/uL Hgb (13.0-17.5) gm/dL Hct (39.0-53.0) % MCV (80.0-100.0) fL RDW (11.5-15.5) % Neutrophils # (Manual) 16.90 H (1.3-7.7) k/uL Monocytes # (Manual) 1.84 H (0-1.0) k/uL Basophils # (Manual) (0-0.2) k/uL Metamyelocytes # (Man) 0.41 H (0) k/uL Myelocytes # (Manual) 0.41 H (0) k/uL Chloride (98-107) mmol/L Carbon Dioxide (22-30) mmol/L BUN (9-20) mg/dL Glucose (74-99) mg/dL POC Glucose (mg/dL) 177 H 210 H (70-110) mg/dL Calcium (8.4-10.2) mg/dL 09/02/23 09/02/23 09/02/23 Range/Units 06:09 08:03 08:03 WBC 21.3 H (3.8-10.6) k/uL RBC 3.49 L (4.30-5.90) m/uL Hgb 11.3 L (13.0-17.5) gm/dL Hct 35.8 L (39.0-53.0) % MCV 102.6 H (80.0-100.0) fL RDW 18.2 H (11.5-15.5) % Neutrophils # (Manual) 16.60 H (1.3-7.7) k/uL Monocytes # (Manual) 1.92 H (0-1.0) k/uL Basophils # (Manual) 0.21 H (0-0.2) k/uL Metamyelocytes # (Man) 0.43 H (0) k/uL Myelocytes # (Manual) 0.43 H (0) k/uL Chloride 110 H (98-107) mmol/L Carbon Dioxide 18 L (22-30) mmol/L BUN 31 H (9-20) mg/dL Glucose 171 H (74-99) mg/dL POC Glucose (mg/dL) 141 H (70-110) mg/dL Calcium 8.1 L (8.4-10.2) mg/dL 09/02/23 Range/Units 11:32 WBC (3.8-10.6) k/uL RBC (4.30-5.90) m/uL Hgb (13.0-17.5) gm/dL Hct (39.0-53.0) % MCV (80.0-100.0) fL RDW (11.5-15.5) % Neutrophils # (Manual) (1.3-7.7) k/uL Monocytes # (Manual) (0-1.0) k/uL Basophils # (Manual) (0-0.2) k/uL Metamyelocytes # (Man) (0) k/uL Myelocytes # (Manual) (0) k/uL Chloride (98-107) mmol/L Carbon Dioxide (22-30) mmol/L BUN (9-20) mg/dL Glucose (74-99) mg/dL POC Glucose (mg/dL) 213 H (70-110) mg/dL Calcium (8.4-10.2) mg/dL Microbiology - Last 24 Hours (Table) 08/27/23 11:33 Blood Culture - Final Blood Assessment and Plan Assessment: Fever and leukocytosis concern for underlying infection work up in progress Stage 2 sacral decub possible source of infection Generalized weakness and slid onto the floor while getting into the chair. Denies any hitting his head. Pancytopenia likely due to chemotherapy, improving Pancreatic tumor. Recently diagnosed currently undergoing chemotherapy last dose about a week ago Acute kidney injury on CKD stage III with creatinine level 2.5 on admission. Baseline 1.7. Lactic acidosis, improved Moderate to severe protein calorie malnutrition Coronary artery history of stent placement Paroxysmal atrial fibrillation on anticoagulation with Eliquis. Prior history of cardioversion. currently with rapid ventricular rate. Hypertension Diabetes type 2 insulin-dependent Hyperlipidemia Osteoarthritis Prior history of smoking DVT prophylaxis patient is already on Eliquis Plan: Patient is status post 2 units of PRBC. Hemoglobin is stable and WBC improved. Now with leukocytosis and pt is being worked up for underlying infection on will continue on empiric antibiotics with IV cefepime Pain management with IV Dilaudid and added [place]. Continue home medications including midodrine.. Cardiology was consulted due to rapid ventricular rate. Wound care is following Oncology is on board.Not planning chemo while in the hospital.. Prognosis is guarded. PT OT will be consulted, patient does not want subacute rehab would like to DC home with sister to her house and sister states she can help care for him. Follow up labs in AM.
[2023-09-02 20:09] LABS: Glucose,Whole Blood 186 mg/dL (70-110)
[2023-09-02] MEDS: PRAVASTATIN SODIUM 20 MG TAB PO SCH (20:10)
[2023-09-03] MEDS: AMPICILLIN-SULBACTAM 3 GM in SODIUM CHLORIDE 0.9% 100 ML IVPB SCH ×5 (00:24→23:38)
[2023-09-03] MEDS: HYDROmorphone 1 MG/ML 1 ML SYRINGE IVP PRN ×3 (01:13→23:34)
[2023-09-03] MEDS: MIDODRINE 5 MG TAB PO SCH ×3 (05:09→17:44)
[2023-09-03 06:04] LABS: Glucose,Whole Blood 123 mg/dL (70-110)
[2023-09-03 07:02] LABS: Anisocytosis Slight; HCT 29.8 % (39.0-53.0); Hypochromasia Slight; MCH 33.4 pg (25.0-35.0); MCHC 32.7 g/dL (31.0-37.0); MCV 101.9 fL (80.0-100.0); Macrocytosis Moderate; Mean Platelet Volume 8.3; Platelet Count 265 k/uL (150-450); RBC 2.92 m/uL (4.30-5.90); RDW 19.1 % (11.5-15.5); WBC 15.9 k/uL (3.8-10.6)
[2023-09-03 07:22] LABS: HGB 9.8 gm/dL (13.0-17.5)
[2023-09-03 07:23] LABS: African American GFR (CKD) >90 (>60 ml/min/1.73 sqM); Anion Gap 18 mmol/L; Blood Urea Nitrogen 25 mg/dL (9-20); C Reactive Protein 1.5 mg/dL (<1.0); Calcium 6.9 mg/dL (8.4-10.2); Carbon Dioxide 16 mmol/L (22-30); Chloride 115 mmol/L (98-107); Glucose 122 mg/dL (74-99); Non-African American GFR(CKD) 83 (>60 ml/min/1.73 sqM); Potassium 3.4 mmol/L (3.5-5.1); Sodium 149 mmol/L (137-145)
[2023-09-03] MEDS: APIXABAN 5 MG TAB PO SCH ×2 (08:11→20:17)
[2023-09-03] MEDS: allopurinoL 100 MG TAB PO SCH (08:11)
[2023-09-03] MEDS: HYDROcodone/APAP 7.5-325MG 1 EACH TAB PO PRN (08:11)
[2023-09-03] MEDS: METOPROLOL TARTRATE 50 MG TAB PO SCH ×3 (08:11→20:17)
[2023-09-03] MEDS: FAMOTIDINE 20 MG TAB PO SCH (08:11)
[2023-09-03] MEDS: TAMSULOSIN 0.4 MG CAP.ER.24H PO SCH (08:11)
[2023-09-03] MEDS: CYANOCOBALAMIN 500 MCG TAB PO SCH (08:11)
[2023-09-03] MEDS: polyethylene glycoL 3350 17 GM POWD.PACK PO SCH (08:12)
[2023-09-03 08:19] LABS: Band Neutrophils % 3 %; Eosinophils # (M) 0.16 k/uL (0-0.7); Lymphocytes # (M) 1.43 k/uL (1.0-4.8); Metamyelocytes # (M) 0.32 k/uL (0); Metamyelocytes % 2 %; Myelocytes # (M) 0.48 k/uL (0); Myelocytes % 3 %; Neutrophils % (M) 79 %; Nucleated Red Blood Cells 0 /100 WBC (0-0); Total Cells Counted 200
[2023-09-03 08:20] LABS: Polychromasia Present
[2023-09-03 11:45] LABS: Glucose,Whole Blood 196 mg/dL (70-110)
--- NOTE | 2023-09-03 12:21 | P.PN ---
Subjective Progress Note Date: 09/03/23 History of present illness: This is a 68-year-old male patient of Dr. FELI Michael with past medical history of ischemic cardiomyopathy, coronary artery disease status post PCI in 1996, hypertension, mitral regurgitation, hyperlipidemia, remote history of tobacco use and dependence, persistent atrial fibrillation on eliquis, pancreatic cancer. Patient was previously evaluated for AICD implantation but was canceled due to the diagnosis of pancreatic cancer. Patient did have a hospitalization after starting chemotherapy and was dehydrated with diarrhea and subsequently had V. tach V. fib arrest with ROSC after 36 minutes of CPR and multiple shocks in January 2023. We have been asked to evaluate the patient for A. fib with RVR. Patient presented to the hospital due to acute kidney injury, chemotherapy induced pancytopenia and no pressure ulcer. Patient states that he was sitting in a chair was slid off and then was unable to get up for a long period of time. His CK was surprisingly normal on arrival. Patient does have chronic lower extremity edema. Telemetry is atrial fibrillation [id number] bpm WBC 17.6 and initially 0.3, hemoglobin 9.4 and initially 6.2. Platelet count 103. Potassium 3.8, BUN 24 creatinine 1.16 improved from 2.5. Urinalysis with slight blood. Home cardiac medications: Eliquis 5 mg twice daily, Lasix 40 mg daily, Imdur 30 mg daily, Lopressor 100 mg twice daily, Nitrostat as needed, pravastatin 29 g at bedtime, midodrine 5 mg twice daily Echocardiogram performed 07/11/23 revealed mildly increased left ventricular wall thickness. EF 25-30%, moderate aortic calcification however no significant aortic valve stenosis. Mild aortic insufficiency. Moderate mitral re gurgitation. RVSP 42. Lexiscan stress test EF 30%, fixed inferior wall defect with no reversible is chemia performed 08/09/2021 in the office. 08/30 Patient remains in atrial fibrillation running in the 130s and blood pressure 90/64. He states he does feel a little dizzy low short of breath sitting on edge of the bed but this first time he has been set up. He denies palpitations and no chest pain. 08/31 Patient is seen in follow-up. No new concerns from the patient. His heart rate is now in the 90s to 110 in atrial fibrillation, blood pressure 101/61. Patient is maintained on eliquis and metoprolol 50 mg 3 times daily. Patient has no new concerns. He just feels tired and fatigued. No chest pain no palpitations. 09/01 Patient remains in atrial fibrillation running between 85 and 107. He is currently on metoprolol 50 mg 3 times daily. Patient denies having any chest pain. He states he had an episode of lightheadedness with chest pain midsternal left side upper area. Pain is reproducible and tender to touch. Patient is complaining of pain to his but area secondary to decubitus ulcers. 09/02 Patient is maintained on eliquis and Lopressor 50 mg 3 times daily. Heart rate is running in the 80s and 90s, blood pressure 112/72. Patient continues to have generalized fatigue, back pain secondary to decubitus ulcers. No palpitations, chest pain. 09/03 The patient continues complaining of generalized pain in the back. He also has wound to the foot. No chest pain and no shortness of breath. He does get lightheaded when he gets up sometimes. Telemetry is atrial fibrillation. Heart rate is running 78-114 and blood pressure 121/75. Physical examination: Gen: This is a 68 year old male sitting in chair and appears to be comfortable no acute distress. VS: reviewed HEENT: Head is atraumatic, normocephalic. Pupils equal, round. Sclerae is anicteric. LUNGS: Clear to auscultation. No wheezes or rhonchi. No intercostal retractions. HEART: Irregular rate and rhythm. No murmur. Tachycardic ABDOMEN: Soft No tenderness. EXTREMITIES: Mild bilateral pedal edema. Dressing on the left foot. NEUROLOGICAL: Patient is awake, alert and oriented x3. Assessment: Persistent atrial fibrillation with RVR, controlled right now Acute kidney injury Thrombocytopenia Pancreatic cancer Ischemic cardiomyopathy Coronary artery disease with PCI in 1996 Hypertension Hyperlipidemia Decubitus ulcers Chest pain, reproducible, musculoskeletal type Plan: Continue eliquis Continue Lopressor 50 mg 3 times daily No need to repeat echocardiogram Cardiology will sign off this case and follow on an as-needed basis. Please reconsult for any new concerns. Patient may follow-up in the office in one to 2 weeks. Nurse practitioner note has been reviewed, I agree with documented findings and plan of care. Patient was seen and examined. Objective - Vital Signs Vital signs: Vital Signs Temp 97.7 F 09/03/23 08:10 Pulse 114 H 09/03/23 08:10 Resp 18 09/03/23 08:10 BP 121/75 09/03/23 08:10 Pulse Ox 99 09/03/23 08:10 FiO2 Intake & Output 09/02/23 09/03/23 09/03/23 18:59 06:59 18:59 Intake Total 540 100 Output Total 1700 600 Balance -1160 -500 Intake: Oral 540 100 Output: Urine 1700 600 Other: Voiding Method Indwelling Catheter Indwelling Catheter - Labs CBC & Chem 7: 09/03/23 06:33 09/03/23 06:33 Labs: Abnormal Lab Results - Last 24 Hours (Table) 09/02/23 09/02/23 09/02/23 Range/Units 08:03 08:03 11:32 WBC 21.3 H (3.8-10.6) k/uL RBC 3.49 L (4.30-5.90) m/uL Hgb 11.3 L (13.0-17.5) gm/dL Hct 35.8 L (39.0-53.0) % MCV 102.6 H (80.0-100.0) fL RDW 18.2 H (11.5-15.5) % Neutrophils # (Manual) 16.60 H (1.3-7.7) k/uL Monocytes # (Manual) 1.92 H (0-1.0) k/uL Basophils # (Manual) 0.21 H (0-0.2) k/uL Metamyelocytes # (Man) 0.43 H (0) k/uL Myelocytes # (Manual) 0.43 H (0) k/uL Sodium (137-145) mmol/L Potassium (3.5-5.1) mmol/L Chloride 110 H (98-107) mmol/L Carbon Dioxide 18 L (22-30) mmol/L BUN 31 H (9-20) mg/dL Glucose 171 H (74-99) mg/dL POC Glucose (mg/dL) 213 H (70-110) mg/dL Calcium 8.1 L (8.4-10.2) mg/dL C-Reactive Protein (<1.0) mg/dL 11/11/23 11/11/23 11/12/23 Range/Units 16:23 20:07 06:01 WBC (3.8-10.6) k/uL RBC (4.30-5.90) m/uL Hgb (13.0-17.5) gm/dL Hct (39.0-53.0) % MCV (80.0-100.0) fL RDW (11.5-15.5) % Neutrophils # (Manual) (1.3-7.7) k/uL Monocytes # (Manual) (0-1.0) k/uL Basophils # (Manual) (0-0.2) k/uL Metamyelocytes # (Man) (0) k/uL Myelocytes # (Manual) (0) k/uL Sodium (137-145) mmol/L Potassium (3.5-5.1) mmol/L Chloride (98-107) mmol/L Carbon Dioxide (22-30) mmol/L BUN (9-20) mg/dL Glucose (74-99) mg/dL POC Glucose (mg/dL) 242 H 186 H 123 H (70-110) mg/dL Calcium (8.4-10.2) mg/dL C-Reactive Protein (<1.0) mg/dL 09/03/23 09/03/23 Range/Units 06:33 06:33 WBC 15.9 H (3.8-10.6) k/uL RBC 2.92 L (4.30-5.90) m/uL Hgb 9.8 L D (13.0-17.5) gm/dL Hct 29.8 L (39.0-53.0) % MCV 101.9 H (80.0-100.0) fL RDW 19.1 H (11.5-15.5) % Neutrophils # (Manual) 13.00 H (1.3-7.7) k/uL Monocytes # (Manual) (0-1.0) k/uL Basophils # (Manual) (0-0.2) k/uL Metamyelocytes # (Man) 0.32 H (0) k/uL Myelocytes # (Manual) 0.48 H (0) k/uL Sodium 149 H (137-145) mmol/L Potassium 3.4 L (3.5-5.1) mmol/L Chloride 115 H (98-107) mmol/L Carbon Dioxide 16 L (22-30) mmol/L BUN 25 H (9-20) mg/dL Glucose 122 H (74-99) mg/dL POC Glucose (mg/dL) (70-110) mg/dL Calcium 6.9 L (8.4-10.2) mg/dL C-Reactive Protein 1.5 H (<1.0) mg/dL
--- NOTE | 2023-09-03 15:25 | P.PN ---
Subjective Progress Note Date: 09/03/23 Principal diagnosis: Leukocytosis Patient is a 68-year-old male with a past medical history significant for atrial fibrillation diabetes mellitus hypertension hyperlipidemia also history of localized pancreatic cancer currently on chemotherapy last chemo was on 08/18/2023, presented to hospital with weakness and decreased oral intake did have leukopenia on admission and one low diffusion 100F patient has received Filgrastim during this admission and subsequently noticed to have elevated white count probably this infection disease consultation. On today's evaluation that is 09/03/2023, the patient remains to be afebrile , the patient is breathing comfortably on room air and denies any shortness of breath, the patient denies any chest pain cough or sputum production, patient denies nausea/vomiting/ diarrhea and no abdominal pain , the patient discomfort in the sacral wound seemed to have slightly decreased in intensity Patient white count is down to 15.9, creatinine is 0.94, CRP 4.5, procalcitonin is 2.03 Objective - Vital Signs Vital signs: Vital Signs Temp 98 F 09/03/23 11:18 Pulse 95 09/03/23 11:18 Resp 16 09/03/23 11:18 BP 122/72 09/03/23 11:18 Pulse Ox 98 09/03/23 11:18 FiO2 Intake & Output 09/02/23 09/03/23 09/03/23 18:59 06:59 18:59 Intake Total 540 100 480 Output Total 1700 600 Balance -1160 -500 480 Intake: Oral 540 100 480 Output: Urine 1700 600 Other: Voiding Method Indwelling Catheter Indwelling Catheter Indwelling Catheter - Exam GENERAL DESCRIPTION: An elderly male lying in bed in no distress RESPIRATORY SYSTEM: Unlabored breathing , clear to auscultation anteriorly HEART: S1 S2 regular rate and rhythm , ABDOMEN: Soft , no tenderness EXTREMITIES: No edema feet - Labs CBC & Chem 7: 09/03/23 06:33 09/03/23 06:33 Labs: Abnormal Lab Results - Last 24 Hours (Table) 09/02/23 09/02/23 09/03/23 Range/Units 16:23 20:07 06:01 WBC (3.8-10.6) k/uL RBC (4.30-5.90) m/uL Hgb (13.0-17.5) gm/dL Hct (39.0-53.0) % MCV (80.0-100.0) fL RDW (11.5-15.5) % Neutrophils # (Manual) (1.3-7.7) k/uL Metamyelocytes # (Man) (0) k/uL Myelocytes # (Manual) (0) k/uL Sodium (137-145) mmol/L Potassium (3.5-5.1) mmol/L Chloride (98-107) mmol/L Carbon Dioxide (22-30) mmol/L BUN (9-20) mg/dL Glucose (74-99) mg/dL POC Glucose (mg/dL) 242 H 186 H 123 H (70-110) mg/dL Calcium (8.4-10.2) mg/dL C-Reactive Protein (<1.0) mg/dL 09/03/23 09/03/23 09/03/23 Range/Units 06:33 06:33 11:43 WBC 15.9 H (3.8-10.6) k/uL RBC 2.92 L (4.30-5.90) m/uL Hgb 9.8 L D (13.0-17.5) gm/dL Hct 29.8 L (39.0-53.0) % MCV 101.9 H (80.0-100.0) fL RDW 19.1 H (11.5-15.5) % Neutrophils # (Manual) 13.00 H (1.3-7.7) k/uL Metamyelocytes # (Man) 0.32 H (0) k/uL Myelocytes # (Manual) 0.48 H (0) k/uL Sodium 149 H (137-145) mmol/L Potassium 3.4 L (3.5-5.1) mmol/L Chloride 115 H (98-107) mmol/L Carbon Dioxide 16 L (22-30) mmol/L BUN 25 H (9-20) mg/dL Glucose 122 H (74-99) mg/dL POC Glucose (mg/dL) 196 H (70-110) mg/dL Calcium 6.9 L (8.4-10.2) mg/dL C-Reactive Protein 1.5 H (<1.0) mg/dL Assessment and Plan (1) Leukocytosis Current Visit: Yes Status: Acute Code(s): D72.829 - ELEVATED WHITE BLOOD CELL COUNT, UNSPECIFIED SNOMED Code(s): 540455399 (2) Pressure ulcer of sacral region, stage 3 Current Visit: Yes Status: Acute Code(s): L89.153 - PRESSURE ULCER OF SACRAL REGION, STAGE 3 SNOMED Code(s): 70825479920530 Plan: 1patient with leukocytosis in this patient who did have a history of pancreatic cancer on Uroject chemotherapy last chemotherapy on 08/18/2023 admitted to hospital with weakness falls unable to get out of the floor patient was noticed to be leukopenic on admission and has received filgrastim, could be related to that as the patient has significant fever patient also have pressure ulcer to the sacral area have some necrotic changes and may be responsible for some of the elevated white count but no significant cellulitis chest x-ray was negative abdominal soft on clinical examination 2-UA has been negative, CRP procalcitonin are mildly elevated 3-patient white count is trending down with adjustment of antibiotics to Unasyn, to continue while inpatient and will transition to oral Augmentin on discharge Dictation was produced using [employer] dictation software. please excuse any grammatical, word or spelling errors. Time with Patient: Less than 30
--- NOTE | 2023-09-03 15:53 | P.PN ---
Subjective Progress Note Date: 09/03/23 68-year-old male with history of pancreatic last chemotherapy dose was August 18, 2023. Patient comes in for a slip and fall from home. Patient did have an injury to the left toe/foot while getting up. He came in by EMS for evaluation. Patient did have a temperature was also tachycardic he is being worked up for underlying infection by ID to have an increasing white count went from 0.5 on admission, to 5.2 and now currently 23.1. When he was neutropenic this admission he did receive a dose of filgstrim. Patient is on IV cefepime empirically. CRP elevated at 6.4. The initial plan was discharge to rehab however patient now wants to be discharged to his sisters house states that she will be caring for him. Heart rate up in the 120s, cardiology following for the afib RVR. He does have a stage 2 sacral decub that has some necrotic changes and local wound care is in place with santyl. 09/02/2023 --the patient denies any fever or any chills, the patient is breathing c omfortably on room air without any need for supplemental oxygen, the patient denies any chest pain or any cough , patient denies abdominal pain, no nausea/vomiting diarrhea , patient is complaining of more discomfort in the sacral wound today Patient white count slightly up to 21.3, creatinine is 1.21 CRP 4.5, procalcitonin is 2.03 -- ID following and patient switched from IV cefepime to IV Unasyn - Patient is rate controlled with Lopressor 50 mg 3 times a day for persistent atrial fibrillation with RVR; remains anticoagulated 09/03/2023 the patient is seen and evaluated in room at bedside; remains to be afebrile , the patient is breathing comfortably on room air and denies any shortness of breath, the patient denies any chest pain cough or sputum production, patient denies nausea/vomiting/ diarrhea and no abdominal pain , the patient discomfort in the sacral wound seemed to have slightly decreased in intensity Patient white count is down to 15.9, creatinine is 0.94, CRP 4.5, procalcitonin is 2.03 -patient with leukocytosis in this patient who did have a history of pancreatic cancer on Uroject chemotherapy last chemotherapy on 08/18/2023 admitted to hospital with weakness falls unable to get out of the floor patient was noticed to be leukopenic on admission and has received filgrastim, could be related to that as the patient has significant fever patient also have pressure ulcer to the sacral area have some necrotic changes and may be responsible for some of the elevated white count but no significant cellulitis chest x-ray was negative abdominal soft on clinical examination --UA has been negative, CRP procalcitonin are mildly elevated ---patient white count is trending down with adjustment of antibiotics to Unasyn, to continue while inpatient and will transition to oral Augmentin on discharge Objective - Vital Signs Vital signs: Vital Signs Temp 98 F 09/03/23 11:18 Pulse 95 09/03/23 11:18 Resp 16 09/03/23 11:18 BP 122/72 09/03/23 11:18 Pulse Ox 98 09/03/23 11:18 FiO2 Intake & Output 09/02/23 09/03/23 09/03/23 18:59 06:59 18:59 Intake Total 540 100 480 Output Total 1700 600 Balance -1160 -500 480 Intake: Oral 540 100 480 Output: Urine 1700 600 Other: Voiding Method Indwelling Catheter Indwelling Catheter Indwelling Catheter - Exam Patient is lying in the bed , no acute distress, awake alert and oriented.. HEENT: Normocephalic. Neck is supple. Pupils reactive. Nostrils clear. Oral cavity is moist. Neck reveals no JVD, carotid bruits, or thyromegaly. CHEST EXAMINATION: Trachea is central. Symmetrical expansion. Bibasilar diminished sounds.. CARDIAC: Normal S1, S2 with no gallops. No murmurs ABDOMEN: Soft. Bowel sounds present. Mild epigastric tenderness. No guarding or rigidity.. No organomegaly. No abdominal bruits. Extremities: Patient does have left lower extremity 2+ swelling. Left great toe wound which is wrapped with gauze. No active bleeding.. No clubbing or cyanosis Neurologically awake, alert, oriented x3 with well-coordinated movements. No g ross focal deficits noted, generalized weakness. Skin: No rash or skin lesions. Sacral decub ulcer3 Psychiatric: Coperative. Nonsuicidal, Musculoskeletal: No joint swelling or deformity. Stage 2 sacral decub. - Labs CBC & Chem 7: 09/03/23 06:33 09/03/23 06:33 Labs: Abnormal Lab Results - Last 24 Hours (Table) 09/02/23 09/02/23 09/03/23 Range/Units 16:23 20:07 06:01 WBC (3.8-10.6) k/uL RBC (4.30-5.90) m/uL Hgb (13.0-17.5) gm/dL Hct (39.0-53.0) % MCV (80.0-100.0) fL RDW (11.5-15.5) % Neutrophils # (Manual) (1.3-7.7) k/uL Metamyelocytes # (Man) (0) k/uL Myelocytes # (Manual) (0) k/uL Sodium (137-145) mmol/L Potassium (3.5-5.1) mmol/L Chloride (98-107) mmol/L Carbon Dioxide (22-30) mmol/L BUN (9-20) mg/dL Glucose (74-99) mg/dL POC Glucose (mg/dL) 242 H 186 H 123 H (70-110) mg/dL Calcium (8.4-10.2) mg/dL C-Reactive Protein (<1.0) mg/dL 09/03/23 09/03/23 Range/Units 06:33 06:33 WBC 15.9 H (3.8-10.6) k/uL RBC 2.92 L (4.30-5.90) m/uL Hgb 9.8 L D (13.0-17.5) gm/dL Hct 29.8 L (39.0-53.0) % MCV 101.9 H (80.0-100.0) fL RDW 19.1 H (11.5-15.5) % Neutrophils # (Manual) 13.00 H (1.3-7.7) k/uL Metamyelocytes # (Man) 0.32 H (0) k/uL Myelocytes # (Manual) 0.48 H (0) k/uL Sodium 149 H (137-145) mmol/L Potassium 3.4 L (3.5-5.1) mmol/L Chloride 115 H (98-107) mmol/L Carbon Dioxide 16 L (22-30) mmol/L BUN 25 H (9-20) mg/dL Glucose 122 H (74-99) mg/dL POC Glucose (mg/dL) (70-110) mg/dL Calcium 6.9 L (8.4-10.2) mg/dL C-Reactive Protein 1.5 H (<1.0) mg/dL Assessment and Plan Assessment: Fever and leukocytosis concern for underlying infection work up in progress Stage 2 sacral decub possible source of infection Generalized weakness and slid onto the floor while getting into the chair. Denies any hitting his head. Pancytopenia likely due to chemotherapy, improving Pancreatic tumor. Recently diagnosed currently undergoing chemotherapy last dose about a week ago Acute kidney injury on CKD stage III with creatinine level 2.5 on admission. Baseline 1.7. Lactic acidosis, improved Moderate to severe protein calorie malnutrition Coronary artery history of stent placement Paroxysmal atrial fibrillation on anticoagulation with Eliquis. Prior history of cardioversion. currently with rapid ventricular rate. Hypertension Diabetes type 2 insulin-dependent Hyperlipidemia Osteoarthritis Prior history of smoking DVT prophylaxis patient is already on Eliquis Plan: Patient is status post 2 units of PRBC. Hemoglobin is stable and WBC improved. Now with leukocytosis and pt is being worked up for underlying infection on will continue on empiric antibiotics with IV cefepime Pain management with IV Dilaudid and added Dorothy. Continue home medications including midodrine.. Cardiology was consulted due to rapid ventricular rate. Wound care is following Oncology is on board.Not planning chemo while in the hospital.. Prognosis is guarded. PT OT will be consulted, patient does not want subacute rehab would like to DC home with sister to her house and sister states she can help care for him. Follow up labs in AM.
[2023-09-03 16:57] LABS: Glucose,Whole Blood 193 mg/dL (70-110)
[2023-09-03] MEDS: HYDROcodone/APAP 10-325MG 1 EACH TAB PO PRN (17:45)
[2023-09-03] MEDS: PRAVASTATIN SODIUM 20 MG TAB PO SCH (20:17)
[2023-09-03] MEDS: COLLAGENASE 250 UNIT/GM OINTMENT 30 GM TUBE TOPICAL SCH (20:17)
[2023-09-04] MEDS: HYDROcodone/APAP 10-325MG 1 EACH TAB PO PRN ×3 (03:29→17:08)
[2023-09-04] MEDS: MIDODRINE 5 MG TAB PO SCH ×3 (05:11→17:08)
[2023-09-04] MEDS: HYDROmorphone 1 MG/ML 1 ML SYRINGE IVP PRN ×3 (05:12→20:28)
[2023-09-04] MEDS: AMPICILLIN-SULBACTAM 3 GM in SODIUM CHLORIDE 0.9% 100 ML IVPB SCH ×4 (05:12→23:47)
[2023-09-04 06:09] LABS: Glucose,Whole Blood 134 mg/dL (70-110)
[2023-09-04] MEDS: TAMSULOSIN 0.4 MG CAP.ER.24H PO SCH (09:56)
[2023-09-04] MEDS: CYANOCOBALAMIN 500 MCG TAB PO SCH (09:56)
[2023-09-04] MEDS: METOPROLOL TARTRATE 50 MG TAB PO SCH ×3 (09:56→20:30)
[2023-09-04] MEDS: APIXABAN 5 MG TAB PO SCH ×2 (09:57→20:29)
[2023-09-04] MEDS: COLLAGENASE 250 UNIT/GM OINTMENT 30 GM TUBE TOPICAL SCH (09:57)
[2023-09-04] MEDS: polyethylene glycoL 3350 17 GM POWD.PACK PO SCH (09:57)
[2023-09-04] MEDS: FAMOTIDINE 20 MG TAB PO SCH (09:57)
[2023-09-04] MEDS: allopurinoL 100 MG TAB PO SCH (09:57)
[2023-09-04 11:25] LABS: Glucose,Whole Blood 219 mg/dL (70-110)
--- NOTE | 2023-09-04 12:05 | P.PN ---
Subjective Progress Note Date: 09/04/23 Principal diagnosis: Leukocytosis Patient is a 68-year-old male with a past medical history significant for atrial fibrillation diabetes mellitus hypertension hyperlipidemia also history of localized pancreatic cancer currently on chemotherapy last chemo was on 08/18/2023, presented to hospital with weakness and decreased oral intake did have leukopenia on admission and one low diffusion 100F patient has received Filgrastim during this admission and subsequently noticed to have elevated white count probably this infection disease consultation. On today's evaluation that is 09/04/2023, the patient continues to be afebrile , the patient is not requiring any supplemental oxygen and is breathing comfortably on room air , the patient denies any chest pain no cough or sputum production, patient denies Abdominal pain and denies any nausea/vomiting/no diarrhea has been reported, the patient pain to the sacral wound has slightly decreased in intensity Patient white count is down to 15.9, creatinine is 0.94 as of yesterday labs are pending from this morning, CRP 4.5, procalcitonin is 2.03 Objective - Vital Signs Vital signs: Vital Signs Temp 97.5 F L 09/04/23 08:00 Pulse 98 09/04/23 08:00 Resp 18 09/04/23 08:00 BP 108/67 09/04/23 08:00 Pulse Ox 98 09/04/23 08:00 FiO2 Intake & Output 09/03/23 09/04/23 09/04/23 18:59 06:59 18:59 Intake Total 1320 358 Output Total 1300 Balance 1320 -1300 358 Intake: Oral 1320 358 Output: Urine 1300 Other: Voiding Method Indwelling Catheter Indwelling Catheter Indwelling Catheter - Exam GENERAL DESCRIPTION: An elderly male lying in bed in no distress RESPIRATORY SYSTEM: Unlabored breathing , clear to auscultation anteriorly HEART: S1 S2 regular rate and rhythm , ABDOMEN: Soft , no tenderness EXTREMITIES: No edema feet - Labs CBC & Chem 7: 09/03/23 06:33 09/03/23 06:33 Labs: Abnormal Lab Results - Last 24 Hours (Table) 09/03/23 09/04/23 09/04/23 Range/Units 16:56 06:07 11:24 POC Glucose (mg/dL) 193 H 134 H 219 H (70-110) mg/dL Assessment and Plan (1) Leukocytosis Current Visit: Yes Status: Acute Code(s): D72.829 - ELEVATED WHITE BLOOD CELL COUNT, UNSPECIFIED SNOMED Code(s): 342873389 (2) Pressure ulcer of sacral region, stage 3 Current Visit: Yes Status: Acute Code(s): L89.153 - PRESSURE ULCER OF SACRAL REGION, STAGE 3 SNOMED Code(s): 02940649072103 Plan: 1patient with leukocytosis in this patient who did have a history of pancreatic cancer on Uroject chemotherapy last chemotherapy on 08/18/2023 admitted to hospital with weakness falls unable to get out of the floor patient was noticed to be leukopenic on admission and has received filgrastim, could be related to that as the patient has significant fever patient also have pressure ulcer to the sacral area have some necrotic changes and may be responsible for some of the elevated white count but no significant cellulitis chest x-ray was negative abdominal soft on clinical examination 2-UA has been negative, CRP procalcitonin are mildly elevated 3-patient white count is trending down with Unasyn, which will be continued while inpatient and will transition to oral Augmentin on discharge Dictation was produced using [employer] software. please excuse any grammatical, word or spelling errors.
[2023-09-04 13:23] LABS: African American GFR (CKD) 79 (>60 ml/min/1.73 sqM); Anion Gap 8 mmol/L; Anisocytosis Slight; Basophils # (A) 0.1 k/uL (0-0.2); Basophils % (A) 0 %; Blood Urea Nitrogen 33 mg/dL (9-20); Calcium 8.2 mg/dL (8.4-10.2); Carbon Dioxide 20 mmol/L (22-30); Chloride 111 mmol/L (98-107); Eosinophils # (A) 0.1 k/uL (0-0.7); Eosinophils % (A) 0 %; Glucose 205 mg/dL (74-99); HCT 34.6 % (39.0-53.0); HGB 10.5 gm/dL (13.0-17.5); Hypochromasia Marked; Lymphocytes % (A) 7 %; MCH 32.3 pg (25.0-35.0); MCHC 30.3 g/dL (31.0-37.0); Macrocytosis Marked; Mean Platelet Volume 8.1; Monocytes # (A) 0.8 k/uL (0-1.0); Monocytes % (A) 5 %; Neutrophils % (A) 86 %; Non-African American GFR(CKD) 68 (>60 ml/min/1.73 sqM); Platelet Count 278 k/uL (150-450); Potassium 4.2 mmol/L (3.5-5.1); RBC 3.24 m/uL (4.30-5.90); RDW 19.7 % (11.5-15.5); Sodium 139 mmol/L (137-145); WBC 15.1 k/uL (3.8-10.6)
[2023-09-04 13:24] LABS: MCV 106.9 fL (80.0-100.0)
--- NOTE | 2023-09-04 14:13 | XR ---
EXAMINATION TYPE: XR chest 1V portable DATE OF EXAM: 09/04/2023 HISTORY: Shortness of breath. COMPARISON: 08/29/2023 TECHNIQUE: Single view of the chest is submitted. FINDINGS: Demonstrated are scattered senescent parenchymal change. Chronic elevation right hemidiaphragm. Basilar infiltrates noted and underlying pneumonia is not excl uded. MediPort catheter is in place. The heart is stable. Hilar and mediastinal structures are within normal limits. Degenerative changes are seen of the dorsal spine. IMPRESSION: 1. Chronic elevation right hemidiaphragm. Basilar infiltrates noted and underlying pneumonia is not excluded.
[2023-09-04 16:31] LABS: Glucose,Whole Blood 179 mg/dL (70-110)
[2023-09-04 20:08] LABS: Glucose,Whole Blood 246 mg/dL (70-110)
[2023-09-04] MEDS: PRAVASTATIN SODIUM 20 MG TAB PO SCH (20:29)
--- NOTE | 2023-09-05 02:33 | PN ---
PROGRESS NOTE DATE OF SERVICE: 09/04/2023 SUBJECTIVE: This is a 68-year-old gentleman, who was admitted with fever and leukocytosis, also had stage II sacral decubitus, also the patient has generalized weakness with the family and the sister wanted the patient to move home and then continue to monitor. The cultures are negative so far. OBJECTIVE: VITAL SIGNS: Pulse is 95, blood pressure 120/69, respirations 18. CHEST: Clear to auscultation. CARDIOVASCULAR: S1, S2. ABDOMEN: Soft. LEGS: Bilateral leg edema. NERVOUS SYSTEM: Diffusely weak. LABORATORY DATA: Reviewed. ASSESSMENT: 1. Stage III sacral decubitus with fever and leukocytosis. 2. Generalized weakness. 3. Pancytopenia likely due to chemotherapy, improved. 4. Pancreatic tumor. 5. Acute kidney injury. 6. Multiple complex medical issues. RECOMMENDATIONS: Recommend to continue current management and continue symptomatic treatment. Repeat labs. Otherwise, repeat electrolytes, potassium supplementation. PT, OT evaluation, as mentioned earlier at this point. The family and the patient would like to return home and overall prognosis extremely guarded. Further recommendations to follow. MMODL / IJN: [id number] /
[2023-09-05] MEDS: HYDROmorphone 1 MG/ML 1 ML SYRINGE IVP PRN ×3 (04:07→21:44)
[2023-09-05] MEDS: HYDROcodone/APAP 10-325MG 1 EACH TAB PO PRN ×2 (05:51→17:44)
[2023-09-05] MEDS: MIDODRINE 5 MG TAB PO SCH ×3 (05:52→17:44)
[2023-09-05] MEDS: AMPICILLIN-SULBACTAM 3 GM in SODIUM CHLORIDE 0.9% 100 ML IVPB SCH ×3 (05:52→17:44)
[2023-09-05 06:18] LABS: Glucose,Whole Blood 159 mg/dL (70-110)
[2023-09-05] MEDS: polyethylene glycoL 3350 17 GM POWD.PACK PO SCH (09:03)
[2023-09-05] MEDS: TAMSULOSIN 0.4 MG CAP.ER.24H PO SCH (09:10)
[2023-09-05] MEDS: COLLAGENASE 250 UNIT/GM OINTMENT 30 GM TUBE TOPICAL SCH (09:10)
[2023-09-05] MEDS: FAMOTIDINE 20 MG TAB PO SCH (09:10)
[2023-09-05] MEDS: APIXABAN 5 MG TAB PO SCH ×2 (09:10→21:38)
[2023-09-05] MEDS: allopurinoL 100 MG TAB PO SCH (09:10)
[2023-09-05] MEDS: CYANOCOBALAMIN 500 MCG TAB PO SCH (09:10)
[2023-09-05] MEDS: METOPROLOL TARTRATE 50 MG TAB PO SCH ×3 (09:10→21:38)
[2023-09-05 11:38] LABS: Glucose,Whole Blood 220 mg/dL (70-110)
--- NOTE | 2023-09-05 13:49 | P.PN ---
Subjective Progress Note Date: 09/05/23 Principal diagnosis: Leukocytosis Patient is a 68-year-old male with a past medical history significant for atrial fibrillation diabetes mellitus hypertension hyperlipidemia also history of localized pancreatic cancer currently on chemotherapy last chemo was on 08/18/2023, presented to hospital with weakness and decreased oral intake did have leukopenia on admission and one low diffusion 100F patient has received Filgrastim during this admission and subsequently noticed to have elevated white count probably this infection disease consultation. On today's evaluation that is 09/05/2023, the patient remains to be afebrile , the patient is breathing comfortably on room air , the patient denies chest pain shortness of breath or cough , patient denies nausea/vomiting/ diarrhea and no abdominal pain, the patient pain to the sacral wound has slightly decreased in intensity, patient feeling better and wants to go home Patient white count is down to 15.1 as of yesterday, creatinine is 0.94 , CRP 4.5, procalcitonin is 2.03 Objective - Vital Signs Vital signs: Vital Signs Temp 97.8 F 09/05/23 04:00 Pulse 75 09/05/23 08:00 Resp 17 09/05/23 08:00 BP 112/66 09/05/23 08:00 Pulse Ox 98 09/05/23 08:00 FiO2 Intake & Output 09/04/23 09/05/23 09/05/23 18:59 06:59 18:59 Intake Total 598 120 Output Total 750 1050 Balance -152 -930 Weight 73.482 kg Intake: Oral 598 120 Output: Urine 750 1050 Other: Voiding Method Indwelling Catheter Indwelling Catheter Indwelling Catheter - Exam GENERAL DESCRIPTION: An elderly male lying in bed in no distress RESPIRATORY SYSTEM: Unlabored breathing , clear to auscultation anteriorly HEART: S1 S2 regular rate and rhythm , ABDOMEN: Soft , no tenderness EXTREMITIES: No edema feet - Labs CBC & Chem 7: 09/04/23 12:43 09/04/23 12:43 Labs: Abnormal Lab Results - Last 24 Hours (Table) 08/25/23 09/04/23 09/04/23 Range/Units 17:53 12:43 12:43 WBC 15.1 H (3.8-10.6) k/uL RBC 3.24 L (4.30-5.90) m/uL Hgb 10.5 L (13.0-17.5) gm/dL Hct 34.6 L (39.0-53.0) % MCV 106.9 H D (80.0-100.0) fL MCHC 30.3 L (31.0-37.0) g/dL RDW 19.7 H (11.5-15.5) % Neutrophils # 13.0 H (1.3-7.7) k/uL Macrocytosis Marked A ESR (0-20) mm/Hr D-Dimer (<0.60) mg/L FEU Chloride 111 H (98-107) mmol/L Carbon Dioxide 20 L (22-30) mmol/L BUN 33 H (9-20) mg/dL Glucose 205 H (74-99) mg/dL POC Glucose (mg/dL) (70-110) mg/dL Calcium 8.2 L (8.4-10.2) mg/dL C-Reactive Protein (<1.0) mg/dL Crossmatch See Detail 09/04/23 09/04/23 09/04/23 Range/Units 14:11 14:11 14:11 WBC (3.8-10.6) k/uL RBC (4.30-5.90) m/uL Hgb (13.0-17.5) gm/dL Hct (39.0-53.0) % MCV (80.0-100.0) fL MCHC (31.0-37.0) g/dL RDW (11.5-15.5) % Neutrophils # (1.3-7.7) k/uL Macrocytosis ESR 27 H (0-20) mm/Hr D-Dimer 1.04 H (<0.60) mg/L FEU Chloride (98-107) mmol/L Carbon Dioxide (22-30) mmol/L BUN (9-20) mg/dL Glucose (74-99) mg/dL POC Glucose (mg/dL) (70-110) mg/dL Calcium (8.4-10.2) mg/dL C-Reactive Protein 2.8 H (<1.0) mg/dL Crossmatch 09/04/23 09/04/23 09/05/23 Range/Units 16:30 20:07 06:16 WBC (3.8-10.6) k/uL RBC (4.30-5.90) m/uL Hgb (13.0-17.5) gm/dL Hct (39.0-53.0) % MCV (80.0-100.0) fL MCHC (31.0-37.0) g/dL RDW (11.5-15.5) % Neutrophils # (1.3-7.7) k/uL Macrocytosis ESR (0-20) mm/Hr D-Dimer (<0.60) mg/L FEU Chloride (98-107) mmol/L Carbon Dioxide (22-30) mmol/L BUN (9-20) mg/dL Glucose (74-99) mg/dL POC Glucose (mg/dL) 179 H 246 H 159 H (70-110) mg/dL Calcium (8.4-10.2) mg/dL C-Reactive Protein (<1.0) mg/dL Crossmatch 09/05/23 Range/Units 11:37 WBC (3.8-10.6) k/uL RBC (4.30-5.90) m/uL Hgb (13.0-17.5) gm/dL Hct (39.0-53.0) % MCV (80.0-100.0) fL MCHC (31.0-37.0) g/dL RDW (11.5-15.5) % Neutrophils # (1.3-7.7) k/uL Macrocytosis ESR (0-20) mm/Hr D-Dimer (<0.60) mg/L FEU Chloride (98-107) mmol/L Carbon Dioxide (22-30) mmol/L BUN (9-20) mg/dL Glucose (74-99) mg/dL POC Glucose (mg/dL) 220 H (70-110) mg/dL Calcium (8.4-10.2) mg/dL C-Reactive Protein (<1.0) mg/dL Crossmatch Assessment and Plan (1) Leukocytosis Current Visit: Yes Status: Acute Code(s): D72.829 - ELEVATED WHITE BLOOD CE LL COUNT, UNSPECIFIED SNOMED Code(s): 670420006 (2) Pressure ulcer of sacral region, stage 3 Current Visit: Yes Status: Acute Code(s): L89.153 - PRESSURE ULCER OF SACRAL REGION, STAGE 3 SNOMED Code(s): 92885846076795 Plan: 1patient with leukocytosis in this patient who did have a history of pancreatic cancer on Uroject chemotherapy last chemotherapy on 08/18/2023 admitted to hospital with weakness falls unable to get out of the floor patient was noticed to be leukopenic on admission and has received filgrastim, could be related to that as the patient has significant fever patient also have pressure ulcer to the sacral area have some necrotic changes and may be responsible for some of the elevated white count but no significant cellulitis chest x-ray was negative abdominal soft on clinical examination 2-UA has been negative, CRP procalcitonin are mildly elevated 3-patient white count is trending down with Unasyn, which will be continued while inpatient and plan is to finish therapy with oral Augmentin along with local wound care per the wound care team Dictation was produced using [employer] dictation software. please excuse any grammatical, word or spelling errors. Time with Patient: Less than 30
[2023-09-05 15:32] LABS: Anisocytosis Moderate; Basophils % (A) 0 %; Eosinophils % (A) 0 %; HCT 28.5 % (39.0-53.0); Hypochromasia Moderate; Lymphocytes % (A) 9 %; MCH 32.9 pg (25.0-35.0); MCHC 31.7 g/dL (31.0-37.0); MCV 103.8 fL (80.0-100.0); Macrocytosis Moderate; Mean Platelet Volume 8.4; Monocytes # (A) 0.8 k/uL (0-1.0); Monocytes % (A) 6 %; Neutrophils % (A) 84 %; Platelet Count 256 k/uL (150-450); RBC 2.74 m/uL (4.30-5.90); RDW 20.2 % (11.5-15.5)
[2023-09-05 15:49] LABS: ALT 22 U/L (4-49); AST 31 U/L (17-59); African American GFR (CKD) 89 (>60 ml/min/1.73 sqM); Albumin 2.1 g/dL (3.5-5.0); Alkaline Phosphatase 152 U/L (38-126); Anion Gap 9 mmol/L; Blood Urea Nitrogen 30 mg/dL (9-20); Carbon Dioxide 20 mmol/L (22-30); Chloride 110 mmol/L (98-107); Glucose 236 mg/dL (74-99); Non-African American GFR(CKD) 77 (>60 ml/min/1.73 sqM); Sodium 139 mmol/L (137-145); Total Bilirubin 0.4 mg/dL (0.2-1.3); Total Protein 5.5 g/dL (6.3-8.2)
[2023-09-05 16:34] LABS: Glucose,Whole Blood 241 mg/dL (70-110)
--- NOTE | 2023-09-05 16:35 | CT ---
EXAMINATION TYPE: CT angio chest DATE OF EXAM: 09/05/2023 COMPARISON: CT 05/20/2023 HISTORY: elevated d-dimer CT DLP: 374.9 mGycm CONTRAST: CT chest with contrast and 3D reconstruction with MIP imaging is performed with IV Contrast, patient injected with 100 mL of Isovue 370. Contrast-enhanced CT of the chest was performed through the course of the pulmonary arteries with yuko g and mediastinal window settings submitted. 3D reconstruction with MIP imaging was also performed. PULMONARY ARTERIES: The pulmonary arteries and their major tributaries are patent. I do not see tammi dence for sizable filling defect to suggest pulmonary embolic process. LUNGS: Moderate right-sided pleural effusion noted with small to moderate left-sided pleural effusion . Compressive basal atelectasis. Underlying infiltrates not excluded. There appears to be pulmonary v enous congestion with possible underlying congestive failure changes. MEDIASTINUM: Thoracic aorta is of normal caliber. The heart is [id number] enlarged. No eviden ce for mediastinal mass. No mediastinal lymph nodes greater than 1cm. HILAR STRUCTURES: No evidence for mass. No hilar lymph nodes greater than 1 cm. UPPER ABDOMEN: Evaluation of the upper abdomen. Appears to be evidence of mild ascites. Biliary stent . Interposition of the right hemicolon adjacent to the liver. Bilateral nephrolithiasis. IMPRESSION: 1. No evidence for Pulmonary embolism at this time.
--- NOTE | 2023-09-05 17:58 | P.PN ---
Subjective Progress Note Date: 09/05/23 Principal diagnosis: Pancytopenia. On treatment for pancreatic adenocarcinoma In follow-up today patient in general complains of weakness, no energy, poor appetite. He denies any recent fevers, oral irritation, vomiting. He is using a wheeled walker for ambulation and working with physical therapy. Objective - Vital Signs Vital signs: Vital Signs Temp 97.8 F 09/05/23 04:00 Pulse 119 H 09/05/23 16:00 Resp 18 09/05/23 16:00 BP 112/60 09/05/23 16:00 Pulse Ox 94 L 09/05/23 16:00 FiO2 Intake & Output 09/04/23 09/05/23 09/05/23 18:59 06:59 18:59 Intake Total 598 120 Output Total 750 1050 700 Balance -152 -930 -700 Weight 73.482 kg Intake: Oral 598 120 Output: Urine 750 1050 700 Other: Voiding Method Indwelling Catheter Indwelling Catheter Indwelling Catheter - Constitutional General appearance: Present: average body habitus, cooperative, no acute distress - EENT Eyes: Present: anicteric sclerae, EOMI ENT: Present: hearing grossly normal - Respiratory Respiratory: bilateral: CTA, diminished (Bases) - Cardiovascular Details: Skin warm and dry to the touch, radial pulses 2+ Rhythm: regular - Neurologic Neurologic: Present: CNII-XII intact - Musculoskeletal Musculoskeletal: Present: generalized weakness - Psychiatric Psychiatric: Present: A&O x's 3, appropriate affect, intact judgment & insight - Labs CBC & Chem 7: 09/05/23 15:11 09/05/23 15:11 Labs: Abnormal Lab Results - Last 24 Hours (Table) 08/25/23 09/04/23 09/04/23 Range/Units 17:53 14:11 20:07 WBC (3.8-10.6) k/uL RBC (4.30-5.90) m/uL Hgb (13.0-17.5) gm/dL Hct (39.0-53.0) % MCV (80.0-100.0) fL RDW (11.5-15.5) % Neutrophils # (1.3-7.7) k/uL ESR 27 H (0-20) mm/Hr Chloride (98-107) mmol/L Carbon Dioxide (22-30) mmol/L BUN (9-20) mg/dL Glucose (74-99) mg/dL POC Glucose (mg/dL) 246 H (70-110) mg/dL Calcium (8.4-10.2) mg/dL Alkaline Phosphatase (38-126) U/L Total Protein (6.3-8.2) g/dL Albumin (3.5-5.0) g/dL Crossmatch See Detail 09/05/23 09/05/23 09/05/23 Range/Units 06:16 11:37 15:11 WBC 12.0 H (3.8-10.6) k/uL RBC 2.74 L (4.30-5.90) m/uL Hgb 9.0 L D (13.0-17.5) gm/dL Hct 28.5 L (39.0-53.0) % MCV 103.8 H (80.0-100.0) fL RDW 20.2 H (11.5-15.5) % Neutrophils # 10.0 H (1.3-7.7) k/uL ESR (0-20) mm/Hr Chloride (98-107) mmol/L Carbon Dioxide (22-30) mmol/L BUN (9-20) mg/dL Glucose (74-99) mg/dL POC Glucose (mg/dL) 159 H 220 H (70-110) mg/dL Calcium (8.4-10.2) mg/dL Alkaline Phosphatase (38-126) U/L Total Protein (6.3-8.2) g/dL Albumin (3.5-5.0) g/dL Crossmatch 09/05/23 09/05/23 Range/Units 15:11 16:33 WBC (3.8-10.6) k/uL RBC (4.30-5.90) m/uL Hgb (13.0-17.5) gm/dL Hct (39.0-53.0) % MCV (80.0-100.0) fL RDW (11.5-15.5) % Neutrophils # (1.3-7.7) k/uL ESR (0-20) mm/Hr Chloride 110 H (98-107) mmol/L Carbon Dioxide 20 L (22-30) mmol/L BUN 30 H (9-20) mg/dL Glucose 236 H (74-99) mg/dL POC Glucose (mg/dL) 241 H (70-110) mg/dL Calcium 8.0 L (8.4-10.2) mg/dL Alkaline Phosphatase 152 H (38-126) U/L Total Protein 5.5 L (6.3-8.2) g/dL Albumin 2.1 L (3.5-5.0) g/dL Crossmatch - Imaging and Cardiology Chest x-ray: report reviewed Assessment and Plan (1) Weakness Current Visit: Yes Status: Acute Priority: High Code(s): R53.1 - WEAKNESS SNOMED Code(s): 89372827 (2) Pancreatic adenocarcinoma Current Visit: Yes Status: Acute Priority: High Code(s): C25.9 - MALIGNANT NEOPLASM OF PANCREAS, UNSPECIFIED SNOMED Code(s): 780742839 (3) Pressure ulcer of sacral region, stage 3 Current Visit: Yes Status: Acute Code(s): L89.153 - PRESSURE ULCER OF SACRAL REGION, STAGE 3 SNOMED Code(s): 79400394590115 (4) Pancytopenia due to antineoplastic chemotherapy Current Visit: Yes Status: Acute Priority: High Code(s): D61.810 - ANTINEOPLASTIC CHEMOTHERAPY INDUCED PANCYTOPENIA; T45.1X5A - ADVERSE EFFECT OF ANTINEOPLASTIC AND IMMUNOSUP DRUGS, INIT SNOMED Code(s): 635613864578423 Plan: Weakness: -Multifactorial-chemo effects, cytopenias. Plan is for home care, PT/OT. Sister reports today that she is going to be staying with him and helping him. Pancytopenia: -S/p 3 units PRBCs For hemoglobin in the 6 range on admit. His hemoglobin is 9 today. No transfusion needed today. Transfuse for hemoglobin less than 7. -Patient received G-CSF, white blood cell count was elevated, was noted to be trending down. WBC 12 today. ID following, Continues on antibiotics. No recent fevers. Blood cultures negative at 5 days. -Plt normal today Pancreatic adenocarcinoma: -Patient and sister expressed concerns about poor tolerance of treatment and what is going on with the cancer. Patient has not been able to tolerate treatment, unfortunately experiencing significant side effects and complications from the same. If there are plans for surgery, patient is not in any condition currently even be considered for Whipple procedure. -Will see about doing treatment follow-up CT scans in the outpatient setting, prior to next office visit. -Treatment has been canceled for this week. No plans for treatment until after patient as assessed on the -Patient was encouraged to work really hard with rehabilitation Decubitis ulcer: -Follows with wound care outpt -Wound care has seen pt
[2023-09-05 19:59] LABS: Glucose,Whole Blood 188 mg/dL (70-110)
[2023-09-05] MEDS: PRAVASTATIN SODIUM 20 MG TAB PO SCH (21:38)
[2023-09-06] MEDS: AMPICILLIN-SULBACTAM 3 GM in SODIUM CHLORIDE 0.9% 100 ML IVPB SCH ×2 (00:50→06:12)
[2023-09-06] MEDS: HYDROcodone/APAP 10-325MG 1 EACH TAB PO PRN ×2 (00:56→09:10)
[2023-09-06 04:02] VITALS: RESP 17
--- NOTE | 2023-09-06 05:35 | P.PN ---
Subjective Progress Note Date: 09/05/23 This is a 68-year-old male with history of pancreatic last chemotherapy dose was August 18, 2023. Patient comes in for a slip and fall from home. Patient did have an injury to the left toe/foot while getting up. He came in by EMS for evaluation. Patient did have a temperature was also tachycardic he is being worked up for underlying infection by ID to have an increasing white count went from 0.5 on admission, to 5.2 and now currently 23.1. When he was neutropenic this admission he did receive a dose of filgstrim. Patient is on IV cefepime empirically. CRP elevated at 6.4. The initial plan was discharge to rehab however patient now wants to be discharged to his sisters house states that she will be caring for him. Heart rate up in the 120s, cardiology following for the afib RVR. He does have a stage 2 sacral decub that has some necrotic changes and local wound care is in place with santyl. 09/02/2023 --the patient denies any fever or any chills, the patient is breathing comfortably on room air without any need for supplemental oxygen, the patient denies any chest pain or any cough , patient denies abdominal pain, no nausea/vomiting diarrhea , patient is complaining of more discomfort in the sacral wound today Patient white count slightly up to 21.3, creatinine is 1.21 CRP 4.5, procalcitonin is 2.03 -- ID following and patient switched from IV cefepime to IV Unasyn - Patient is rate controlled with Lopressor 50 mg 3 times a day for persistent atrial fibrillation with RVR; remains anticoagulated 09/03/2023 the patient is seen and evaluated in room at bedside; remains to be afebrile , the patient is breathing comfortably on room air and denies any shortness of breath, the patient denies any chest pain cough or sputum production, patient denies nausea/vomiting/ diarrhea and no abdominal pain , the patient discomfort in the sacral wound seemed to have slightly decreased in intensity Patient white count is down to 15.9, creatinine is 0.94, CRP 4.5, procalcitonin is 2.03 -patient with leukocytosis in this patient who did have a history of pancreatic cancer on Uroject chemotherapy last chemotherapy on 08/18/2023 admitted to hospital with weakness falls unable to get out of the floor patient was noticed to be leukopenic on admission and has received filgrastim, could be related to that as the patient has significant fever patient also have pressure ulcer to the sacral area have some necrotic changes and may be responsible for some of the elevated white count but no significant cellulitis chest x-ray was negative abdominal soft on clinical examination --UA has been negative, CRP procalcitonin are mildly elevated ---patient white count is trending down with adjustment of antibiotics to Unasyn, to continue while inpatient and will transition to oral Augmentin on discharge 09/05/2023 Patient is seen in follow-up today currently sitting up at the side of the bed and eating reporting he feels a little stronger today. Patient reports his sisters coming to stay with him and help take care of him as he does not want to go to rehab. Patient has been working with physical therapy continued with significant weakness. Patient with case management following arranging for necessary discharge planning needs and a prescription was provided for DME. Marissa herrera is currently afebrile maintained on antibiotics with infectious disease following will transition to oral. Patient is receiving wound care and will continue with Santyl as well as close outpatient follow-up at the wound care center. Patient denies nausea or vomiting and is tolerating diet. Patient has been encouraged to increase oral intake as well as increased activity as tolerated. Oncology following and will follow-up in the outpatient setting with repeat imaging and discussion of treatment plan moving forward. Patient is having difficulties with tolerance to treatment continues with significant weakness. Review of systems: Constitutional: No reports of fatigue, fever, or chills Cardiovascular: No reports of chest pain or palpitations Respiratory: No reports of shortness of breath or cough GI: No reports of nausea, vomiting, or diarrhea, reports poor appetite although trying to eat more : No reports of dysuria or retention Neurovascular: reports of generalized weakness All medications have been reviewed Physical exam: Patient is sitting up on the side of the bed, awake alert and oriented.. Well- developed, elderly-appearing HEENT: Normocephalic. Neck is supple. Pupils reactive. Nostrils clear. Oral cavity is moist. Neck reveals no JVD, carotid bruits, or thyromegaly. CHEST EXAMINATION: Trachea is central. Symmetrical expansion. Bibasilar diminished sounds.. CARDIAC: S1, S2 are muffled ABDOMEN: Soft. Bowel sounds present. Mild epigastric tenderness on palpation. No guarding or rigidity.. No organomegaly. No abdominal bruits. Extremities: Patient does have left lower extremity 2+ swelling. Left great toe wound which is wrapped with gauze. No active bleeding.. No clubbing or cyanosis Neurologically awake, alert, oriented x3 with well-coordinated movements. No gross focal deficits noted, generalized weakness. Skin: No rash or skin lesions. Sacral decub ulcer that is currently dressed with foam Psychiatric: Cooperative. Nonsuicidal Musculoskeletal: No joint swelling or deformity. Stage 2 sacral decub. Assessment: Fever and leukocytosis concern for underlying infection work up has been negative Stage 2 sacral decub possible source of infection Generalized weakness and slid onto the floor while getting into the chair. Denies any hitting his head. Pancytopenia likely due to chemotherapy, improving Pancreatic tumor. Recently diagnosed currently undergoing chemotherapy last dose 2 weeks ago Acute kidney injury on CKD stage III with creatinine level 2.5 on admission. Baseline 1.7. Improving Lactic acidosis, improved Severe protein calorie malnutrition with a BMI of 21.4 Coronary artery disease with a history of stent placement Paroxysmal atrial fibrillation on anticoagulation with Eliquis. Prior history of cardioversion. Currently rate controlled Hypertension Diabetes type 2 insulin-dependent Hyperlipidemia Osteoarthritis Prior history of smoking DVT prophylaxis patient is already on Eliquis GI prophylaxis Full code Plan: Patient is continued on IV Zosyn with infectious disease following and workup thus far has been negative. Patient will continue on Augmentin on discharge Patient continues with significant weakness and working with physical therapy and reports his sisters coming to stay with him to help care for him and will have home care in the outpatient setting Oncology following and treatment for this week has been canceled and will follow-up in the outpatient setting regarding treatment plan and further imaging prior next appointment Patient did have a mildly elevated d-dimer and CT of the chest was done and PE was ruled out Patient is continued on oral anticoagulation and will continue. Cardiology has evaluated the patient currently rate controlled Case management following arranging for necessary discharge planning and equipment for the home Patient will continue with wound care and recommend close outpatient follow-up at the wound care center Patient will schedule to discharge today and sister does not feel comfortable driving home and assisting in the dark as CAT scan was then performed until after 4 PM. Will monitor patient overnight and patient will be discharged in 24 hours. Multiple complex medical issues, prognosis is guarded. The impression and plan of care has been dictated by Jasmina Toledo, Nurse Practitioner as directed. Dr. Kade MD I have performed a history and examination and MDM of this patient, discussed the same with the dictator, and agree with the dictator's assessment and plan as written ,documented as a scribe. Based on total visit time, I have performed more than 50% of the visit. Objective - Vital Signs Vital signs: Vital Signs Temp 97.5 F L 09/04/23 08:00 Pulse 98 09/04/23 08:00 Resp 18 09/04/23 08:00 BP 108/67 09/04/23 08:00 Pulse Ox 98 09/04/23 08:00 FiO2 Intake & Output 09/03/23 09/04/23 09/04/23 18:59 06:59 18:59 Intake Total 1320 358 Output Total 1300 Balance 1320 -1300 358 Intake: Oral 1320 358 Output: Urine 1300 Other: Voiding Method Indwelling Catheter Indwelling Catheter Indwelling Catheter - Labs CBC & Chem 7: 09/05/23 15:11 09/05/23 15:11 Labs: Abnormal Lab Results - Last 24 Hours (Table) 09/03/23 09/03/23 09/04/23 Range/Units 11:43 16:56 06:07 POC Glucose (mg/dL) 196 H 193 H 134 H (70-110) mg/dL
[2023-09-06 06:10] LABS: Glucose,Whole Blood 182 mg/dL (70-110)
[2023-09-06] MEDS: HYDROmorphone 1 MG/ML 1 ML SYRINGE IVP PRN (06:31)
[2023-09-06] MEDS: MIDODRINE 5 MG TAB PO SCH (06:31)
[2023-09-06 08:53] VITALS: BP 122/92; PULSE 81; TEMP 97.9
[2023-09-06] MEDS: METOPROLOL TARTRATE 50 MG TAB PO SCH (09:09)
[2023-09-06] MEDS: APIXABAN 5 MG TAB PO SCH (09:09)
[2023-09-06] MEDS: FAMOTIDINE 20 MG TAB PO SCH (09:09)
[2023-09-06] MEDS: CYANOCOBALAMIN 500 MCG TAB PO SCH (09:09)
[2023-09-06] MEDS: TAMSULOSIN 0.4 MG CAP.ER.24H PO SCH (09:09)
[2023-09-06] MEDS: allopurinoL 100 MG TAB PO SCH (09:13)
[2023-09-06] MEDS: COLLAGENASE 250 UNIT/GM OINTMENT 30 GM TUBE TOPICAL SCH (09:14)
[2023-09-06] MEDS: polyethylene glycoL 3350 17 GM POWD.PACK PO SCH (09:15)
[2023-09-06] MEDS ORDERED: IOPAMIDOL CONTRAST (ORAL USE) VIAL PO PRN (10:16)
--- NOTE | 2023-09-06 11:49 | P.PN ---
Subjective Progress Note Date: 09/06/23 Principal diagnosis: Leukocytosis Patient is a 68-year-old male with a past medical history significant for atrial fibrillation diabetes mellitus hypertension hyperlipidemia also history of localized pancreatic cancer currently on chemotherapy last chemo was on 08/18/2023, presented to hospital with weakness and decreased oral intake did have leukopenia on admission and one low diffusion 100F patient has received Filgrastim during this admission and subsequently noticed to have elevated white count probably this infection disease consultation. On today's evaluation that is 09/06/2023, the patient continues to be afebrile , the patient is breathing comfortably on room air and no need for supplemental oxygen, the patient denies chest pain shortness of breath or cough , patient denies nausea/vomiting, no abdominal pain and no diarrhea has been reported by the nursing staff, the patient pain to the sacral wound has decreased in intensity, no new symptoms Patient white count is down to 12,000 as of yesterday, creatinine is 1.0 , CRP 4.5, procalcitonin is 2.03 Objective - Vital Signs Vital signs: Vital Signs Temp 97.9 F 09/06/23 08:00 Pulse 81 09/06/23 08:00 Resp 17 09/06/23 08:00 BP 122/92 09/06/23 08:00 Pulse Ox 97 09/06/23 08:00 FiO2 Intake & Output 09/05/23 09/06/23 09/06/23 18:59 06:59 18:59 Output Total 700 850 400 Balance -700 -850 -400 Output: Urine 700 850 400 Other: Voiding Method Indwelling Catheter Indwelling Catheter Indwelling Catheter - Exam GENERAL DESCRIPTION: An elderly male lying in bed in no distress RESPIRATORY SYSTEM: Unlabored breathing , clear to auscultation anteriorly HEART: S1 S2 regular rate and rhythm , ABDOMEN: Soft , no tenderness EXTREMITIES: No edema feet - Labs CBC & Chem 7: 09/05/23 15:11 09/05/23 15:11 Labs: Abnormal Lab Results - Last 24 Hours (Table) 09/05/23 09/05/23 09/05/23 Range/Units 15:11 15:11 16:33 WBC 12.0 H (3.8-10.6) k/uL RBC 2.74 L (4.30-5.90) m/uL Hgb 9.0 L D (13.0-17.5) gm/dL Hct 28.5 L (39.0-53.0) % MCV 103.8 H (80.0-100.0) fL RDW 20.2 H (11.5-15.5) % Neutrophils # 10.0 H (1.3-7.7) k/uL Chloride 110 H (98-107) mmol/L Carbon Dioxide 20 L (22-30) mmol/L BUN 30 H (9-20) mg/dL Glucose 236 H (74-99) mg/dL POC Glucose (mg/dL) 241 H (70-110) mg/dL Calcium 8.0 L (8.4-10.2) mg/dL Alkaline Phosphatase 152 H (38-126) U/L Total Protein 5.5 L (6.3-8.2) g/dL Albumin 2.1 L (3.5-5.0) g/dL 09/05/23 09/06/23 Range/Units 19:58 06:09 WBC (3.8-10.6) k/uL RBC (4.30-5.90) m/uL Hgb (13.0-17.5) gm/dL Hct (39.0-53.0) % MCV (80.0-100.0) fL RDW (11.5-15.5) % Neutrophils # (1.3-7.7) k/uL Chloride (98-107) mmol/L Carbon Dioxide (22-30) mmol/L BUN (9-20) mg/dL Glucose (74-99) mg/dL POC Glucose (mg/dL) 188 H 182 H (70-110) mg/dL Calcium (8.4-10.2) mg/dL Alkaline Phosphatase (38-126) U/L Total Protein (6.3-8.2) g/dL Albumin (3.5-5.0) g/dL Assessment and Plan (1) Leukocytosis Current Visit: Yes Status: Acute Code(s): D72.829 - ELEVATED WHITE BLOOD CELL COUNT, UNSPECIFIED SNOMED Code(s): 375816480 (2) Pressure ulcer of sacral region, stage 3 Current Visit: Yes Status: Acute Code(s): L89.153 - PRESSURE ULCER OF SACRAL REGION, STAGE 3 SNOMED Code(s): 94303681641604 Plan: 1patient with leukocytosis in this patient who did have a history of pancreatic cancer on Uroject chemotherapy last chemotherapy on 08/18/2023 admitted to hospital with weakness falls unable to get out of the floor patient was noticed to be leukopenic on admission and has received filgrastim, could be related to that as the patient has significant fever patient also have pressure ulcer to the sacral area have some necrotic changes and may be responsible for some of the elevated white count but no significant cellulitis chest x-ray was negative abdominal soft on clinical examination 2-UA has been negative, CRP procalcitonin are mildly elevated 3-patient white count is trending down to 12,000, patient to continue with Unasyn while inpatient and plan is to finish therapy with oral Augmentin along with local wound care per the wound care team Dictation was produced using [employer] dictation software. please excuse any grammatical, word or spelling errors. Time with Patient: Less than 30
--- NOTE | 2023-09-06 21:25 | P.PN ---
Subjective Progress Note Date: 08/30/23 Patient is a 68-year-old male with a known history of pancreatic cancer currently on chemotherapy last dose about a week ago, hypertension, hyperlipidemia, diabetes type 2, atrial fibrillation on anticoagulation with Eliquis, coronary artery disease history of stent placement and prior history of smoking was brought to the hospital by EMS. Patient states that last night around 2 AM he was trying to sit in the chair but slipped onto the floor. He tried to get up but the chair slid away. Patient was unable to get up from the floor and called for help. Patient crawled upstairs and injured his left foot/toe while going up. Finally he was able to get hold of someone to help this morning. Patient has been having generalized weakness. Denies any headache or dizziness. Denies any hitting head his head. No complaints of chest pain or shortness of breath. Patient does have left lower swelling on and off for the past few months. No nausea vomiting or abdominal pain or diarrhea. No fever no chills. Chest x-ray showed no acute pulmonary process. CT head and cervical spine showed mild cerebral atrophy. Old lacunar infarct right basal ganglia. No acute intracranial abnormality seen. No acute fracture or malalignment of the cervical spine. Moderate spondylitic changes especially C5-C7 levels. Severe bilateral neuroforaminal stenosis C6- C7. Moderate spinal canal stenosis at this level. Pelvic x-ray showed no acute osseous abnormality of the pelvis. Laboratory data showed WBC 0.3, hemoglobin 6.2, MCV 104.3 and platelets 12 INR 2.7, BUN 45 and creatinine 2.5, bicarb is 16, blood sugar is 111, lactic acid 3.2, total bilirubin level is 1.4 AST 64 ALT 37 alk phos 91, CK1 43, troponin 0.013, albumin 2.6 and TSH level is 0.765. 08/26/2023 Patient is lying in the bed. Awake alert and oriented x3. Feels little better. No complaints of chest pain or shortness of breath. Pain is controlled. No headache or dizziness or lightheadedness. Laboratory data showed WBC 0.4, hemoglobin 8.5 and platelets 18, BUN 45 and creatinine 1.92. Magnesium 1.9 total bilirubin was 1.7 AST 90 ALT 57 alk phos 81. Albumin 2.5. Patient has been afebrile. Blood pressure is 108/63. Currently on 2 L oxygen via nasal cannula. 08/27/2023 Patient is currently resting in the bed. Awake alert and oriented x3. Still having generalized weakness but slightly better. Patient does have poor oral intake. Patient was having temperature Tmax 100.0 early in the morning today. Patient was also tachycardic at this time. Urinalysis is negative for infection. Chest x-ray showed mild platelike atelectasis on the right. Otherwise no interval change. Patient is IV hydration with normal saline at 75 cc/h. Laboratory data showed WBC 0.5 hemoglobin 6.9. Platelets 22 BUN 48 and creatinine 1.43 and A1c level was 7.1. Urinalysis showed trace ketones small blood and negative leukocyte esterase. Blood sugar is fairly controlled. 08/28/2023 Patient is currently in the bed. Awake alert oriented x3. Does have generalized weakness and is also loss of appetite and very minimal oral intake. Patient is also complaining of bilateral lower extremity pain. Denies any nausea or vomiting. No fever. Chest x-ray done yesterday showed mild platelike atelectasis on the right. Otherwise no significant interval change. Laboratory data showed WBC improved to 5.2 hemoglobin 9.8 and platelets 55., Sodium 137 potassium 3.9 chloride 109 bicarb is 15 BUN 24 and creatinine 1.07 and blood sugar is 101. Calcium 8.1. Patient was started on cefepime. Blood cultures pending at this time. 08/29/2023 Patient is lying in the bed. Awake alert and oriented x3. Still having generalized weakness and also minimal oral intake. Pain is fairly controlled. Patient has been afebrile. No cough or sputum production. Repeat chest x-ray showed no acute process noted. Blood cultures negative so far. Wound care is following for the sacral decub ulcer stage III Otherwise patient went into rapid ventricular rate. Cardiology was consulted for evaluation. Laboratory data showed WBC went up to 17.6 hemoglobin 9.4 and platelets 103 BUN 24 and creatinine 1.16, and calcium 8.3. Potassium 3.8. 08/30/2023 Patient is resting in the bed. Awake alert and oriented x3. Was able to sit in the chair today. Presently dizzy and short of breath in the morning. But currently denies any chest pain or shortness of breath. No palpitations. Heart rate is controlled with metoprolol, dose increased to 50 mg 3 times daily. Patient states that she felt better today. Lab review showed WBC increased to 23.1, hemoglobin level 10.1 and platelets 147, sodium 136 potassium 3.8 BUN 25 creatinine 1.31 and blood sugar is 105. Patient is being current cefepime. Blood cultures showed no growth. Urinalysis x2 is negative. Current medications reviewed. Objective - Vital Signs Vital signs: Vital Signs Temp 97.4 F L 08/30/23 08:41 Pulse 115 H 08/30/23 14:00 Resp 18 08/30/23 14:00 BP 113/74 08/30/23 12:00 Pulse Ox 99 08/30/23 12:00 FiO2 Intake & Output 08/29/23 08/30/23 08/30/23 18:59 06:59 18:59 Intake Total 220 110 Output Total 390 950 Balance -170 -950 110 Weight 73.482 kg Intake: Oral 220 110 Output: Urine 390 950 Other: Voiding Method Indwelling Catheter Indwelling Catheter Indwelling Catheter - Exam PHYSICAL EXAMINATION: Patient is lying in the bed , no acute distress, awake alert and oriented.. HEENT: Normocephalic. Neck is supple. Pupils reactive. Nostrils clear. Oral cavity is moist. Neck reveals no JVD, carotid bruits, or thyromegaly. CHEST EXAMINATION: Trachea is central. Symmetrical expansion. Bibasilar diminished sounds.. CARDIAC: Normal S1, S2 with no gallops. No murmurs ABDOMEN: Soft. Bowel sounds present. Mild epigastric tenderness. No guarding or rigidity.. No organomegaly. No abdominal bruits. Extremities: Patient does have left lower extremity 2+ swelling. Left great toe wound which is wrapped with gauze. No active bleeding.. No clubbing or cyanosis Neurologically awake, alert, oriented x3 with well-coordinated movements. No gross focal deficits noted Skin: No rash or skin lesions. Sacral decub ulcer3 Psychiatric: Coperative. Nonsuicidal, Musculoskeletal: No joint swelling or deformity. - Labs CBC & Chem 7: 09/05/23 15:11 09/05/23 15:11 Labs: Abnormal Lab Results - Last 24 Hours (Table) 08/30/23 08/30/23 08/30/23 Range/Units 06:16 10:11 10:11 WBC 23.1 H (3.8-10.6) k/uL RBC 3.09 L (4.30-5.90) m/uL Hgb 10.1 L (13.0-17.5) gm/dL Hct 31.1 L (39.0-53.0) % MCV 100.8 H (80.0-100.0) fL RDW 18.2 H (11.5-15.5) % Plt Count 147 L (150-450) k/uL Neutrophils # (Manual) 17.50 H (1.3-7.7) k/uL Lymphocytes # (Manual) 0.92 L (1.0-4.8) k/uL Monocytes # (Manual) 2.08 H (0-1.0) k/uL Metamyelocytes # (Man) 0.92 H (0) k/uL Myelocytes # (Manual) 0.92 H (0) k/uL Sodium 136 L (137-145) mmol/L Chloride 111 H (98-107) mmol/L Carbon Dioxide 18 L (22-30) mmol/L BUN 25 H (9-20) mg/dL Creatinine 1.31 H (0.66-1.25) mg/dL Glucose 105 H (74-99) mg/dL POC Glucose (mg/dL) 111 H (70-110) mg/dL Calcium 8.0 L (8.4-10.2) mg/dL Microbiology - Last 24 Hours (Table) 08/27/23 11:33 Blood Culture - Preliminary Blood Assessment and Plan Assessment: Generalized weakness and slid onto the floor while getting into the chair. Denies any hitting his head. Pancytopenia likely due to chemotherapy. improved. Leukocytosis. Worsening. Rule out infection. Pancreatic tumor. Recently diagnosed currently undergoing chemotherapy last dose about a week ago Acute kidney injury on CKD stage III with creatinine level 2.5 on admission. Baseline 1.7. Lactic acidosis Moderate to severe protein calorie malnutrition Coronary artery history of stent placement Paroxysmal atrial fibrillation on anticoagulation with Eliquis. Prior history of cardioversion. Hypertension Diabetes type 2 insulin-dependent Hyperlipidemia Osteoarthritis Prior history of smoking DVT prophylaxis patient is already on Eliquis Plan: Patient will be continued on gentle IV hydration. Heart rate is better controlled with increase metoprolol dose. Patient is being current on antibiotics in the form of cefepime. Blood cultures negative. ID consult due to worsening leukocytosis. Pain management with IV Dilaudid and Tylenol. Continue home medications including midodrine.. Follow-up closely. Cardiology and oncology is on board. Prognosis is guarded. Time with Patient: Greater than 30
--- NOTE | 2023-09-08 09:39 | P.DS ---
Providers Date of admission: 08/25/23 17:15 Expected date of discharge: 09/06/23 Attending physician: Simon Braun Consults: 08/25/23 17:15 Consult Physician Routine Consulting Provider: Matthew Rosa Consult Reason/Comments: oncology Do you want consulting provider notified?: Yes 08/29/23 10:05 Consult Physician Routine Consulting Provider: Hector Hyman Consult Reason/Comments: afib rvr Do you want consulting provider notified?: Yes 08/30/23 16:01 Consult Physician Routine Consulting Provider: Nancie Morales Consult Reason/Comments: Leukocytosis Do you want consulting provider notified?: Yes Primary care physician: Marco Haque [facility] Course: Final diagnosis Fever and leukocytosis concern for underlying infection work up has been negative Stage 2 sacral decub , present on admission possible source of infection Generalized weakness and falls with no obvious injury Pancytopenia likely due to chemotherapy, improving Pancreatic tumor. Recently diagnosed currently undergoing chemotherapy last dose 2 weeks ago Acute kidney injury on CKD stage III with creatinine level 2.5 on admission. Baseline 1.7. Improving Lactic acidosis, improved Severe protein calorie malnutrition with a BMI of 21.4 Coronary artery disease with a history of stent placement Paroxysmal atrial fibrillation on anticoagulation with Eliquis. Prior history of cardioversion. Currently rate controlled Hypertension Diabetes type 2 insulin-dependent Hyperlipidemia Osteoarthritis Prior history of smoking DVT prophylaxis patient is already on Eliquis GI prophylaxis Full code Discharge disposition Patient is being discharged in a stable condition with guarded prognosis to home with home care. Patient will follow-up with Dr. Marco Haque in the outpatient setting upon discharge. Patient is to continue with current medications as mentioned below including antibiotics and close outpatient follow-up with oncology as well as cardiology as scheduled. Total time taken is greater than 35 minutes. Hospital course This is a 68-year-old male who was recently admitted with fevers and recent chemotherapy with generalized weakness with falls being closely monitored. [facility] medical consultations including infectious disease along with cardiology and oncology following this patient did have a mildly elevated white count which is trending down and maintained on Unasyn with no obvious source of infection. Patient does have decubitus ulcer that requires continued wound care and will follow with the wound care outpatient and home care is being arranged as well as sister coming to stay with him to live with him and take care of him. Patient is refusing rehab and has been evaluated by physical therapy recommending rehab. Patient has been cleared by consultations for discharge home and will follow-up outpatient with cardiology as well as oncology. Patient reports to feeling somewhat improved a little stronger and would like to go home. Patient has been cleared by consultations. Please refer to consultation notes for further HPI. Currently no reports of chest pain, shortness of breath, or palpitations. Patient is afebrile. No reports of nausea or vomiting and patient is tolerating diet. Patient will be discharged home with home care today. Guarded prognosis and high risk for readmission given patient's significant comorbidities. Physical exam: Gen: This is a 68-year-old male who is awake, alert and oriented 3, well- developed, well-nourished, elderly-appearing HEENT: Head is atraumatic, normocephalic. Pupils equal, round. Sclerae is anict vannesa. NECK: Supple. No JVD. No lymphadenopathy. No thyromegaly. LUNGS: Clear to auscultation. No wheezes or rhonchi. No intercostal retractions. HEART: Regular rate and rhythm. No murmur. ABDOMEN: Soft. Bowel sounds are present. No masses. No tenderness. EXTREMITIES: No pedal edema. No calf tenderness. NEUROLOGICAL: Patient is awake, alert and oriented x3. Cranial nerves 2 through 12 are grossly intact. Diffusely weak Please refer to medication reconciliation sheet for a list of medications. The impression and plan of care has been dictated by Jasmina Toledo, Nurse Practitioner as directed. Dr. Kade MD I have performed a history and examination and MDM of this patient, discussed the same with the dictator, and agree with the dictator's assessment and plan as written ,documented as a scribe. Based on total visit time, I have performed more than 50% of the visit. Patient Condition at Discharge: Fair Plan - Discharge Summary Discharge Rx Participant: Yes New Discharge Prescriptions: New Midodrine [ProAmatine] 10 mg PO AC-TID 30 Days #180 tab Collagenase [Santyl Ointment] 1 applic TOPICAL DAILY 30 Days #1 each Amoxic-Pot Clav 875-125Mg [Augmentin 875-125] 1 tab PO Q12HR 10 Days #20 tab Metoprolol Tartrate [Lopressor] 50 mg PO TID 30 Days #90 tab polyethylene glycoL 3350 [Miralax] 17 gm PO DAILY #30 packet HYDROcodone/APAP 10-325MG [Pennock 10-325] 1 each PO Q6HR PRN #9 tab PRN Reason: Pain Famotidine [Pepcid] 20 mg PO DAILY #30 tab Continue Nitroglycerin Sl Tabs [Nitrostat] 0.4 mg SUBLINGUAL Q5M PRN PRN Reason: Chest Pain Cyclobenzaprine [Flexeril] 10 mg PO HS PRN PRN Reason: Muscle Spasm Apixaban [Eliquis] 5 mg PO BID Cyanocobalamin (Vitamin B-12) [Vitamin B-12] 1,000 mcg PO DAILY Pravastatin Sodium [Pravachol] 20 mg PO HS Diphenoxylate HCl/Atropine [Lomotil 2.5-0.025 mg Tablet] 2 tab PO QID PRN PRN Reason: Diarrhea allopurinoL [Zyloprim] 100 mg PO DAILY Tamsulosin [Flomax] 0.4 mg PO PC-BRKFST #30 cap Acetaminophen Tab [Tylenol] 650 mg PO Q6HR PRN tab PRN Reason: Mild Pain Or Fever > 100.5 Cholecalciferol [Vitamin D3 (25 Mcg = 1000 Iu)] 50 mcg PO DAILY Insulin Degludec [Tresiba Flextouch U-100 Pen] 10 units SQ DAILY Discontinued Isosorbide Mononitrate ER [Imdur] 30 mg PO DAILY Furosemide [Lasix] 40 mg PO DAILY HYDROcodone/APAP 7.5-325MG [Pennock 7.5-325] 1 - 2 tab PO Q6H PRN PRN Reason: Pain Metoprolol Tartrate [Lopressor] 100 mg PO BID 30 Days #120 tab Midodrine [ProAmatine] 5 mg PO AC-BID 30 Days #60 tab Discharge Medication List Apixaban [Eliquis] 5 mg PO BID 03/20/18 [History] Cyanocobalamin (Vitamin B-12) [Vitamin B-12] 1,000 mcg PO DAILY 03/20/18 [History] Cyclobenzaprine [Flexeril] 10 mg PO HS PRN 03/20/18 [History] Nitroglycerin Sl Tabs [Nitrostat] 0.4 mg SUBLINGUAL Q5M PRN 03/20/18 [History] Pravastatin Sodium [Pravachol] 20 mg PO HS 12/13/19 [History] Cholecalciferol [Vitamin D3 (25 Mcg = 1000 Iu)] 50 mcg PO DAILY 10/13/22 [History] Diphenoxylate HCl/Atropine [Lomotil 2.5-0.025 mg Tablet] 2 tab PO QID PRN 07/10/23 [History] Insulin Degludec [Tresiba Flextouch U-100 Pen] 10 units SQ DAILY 07/10/23 [History] allopurinoL [Zyloprim] 100 mg PO DAILY 07/10/23 [History] Acetaminophen Tab [Tylenol] 650 mg PO Q6HR PRN tab 07/14/23 [Rx] Tamsulosin [Flomax] 0.4 mg PO PC-BRKFST #30 cap 07/14/23 [Rx] Amoxic-Pot Clav 875-125Mg [Augmentin 875-125] 1 tab PO Q12HR 10 Days #20 tab 09/05/23 [Rx] Collagenase [Santyl Ointment] 1 applic TOPICAL DAILY 30 Days #1 each 09/05/23 [Rx] Famotidine [Pepcid] 20 mg PO DAILY #30 tab 09/05/23 [Rx] HYDROcodone/APAP 10-325MG [Pennock 10-325] 1 each PO Q6HR PRN #9 tab 09/05/23 [Rx] Metoprolol Tartrate [Lopressor] 50 mg PO TID 30 Days #90 tab 09/05/23 [Rx] Midodrine [ProAmatine] 10 mg PO AC-TID 30 Days #180 tab 09/05/23 [Rx] polyethylene glycoL 3350 [Miralax] 17 gm PO DAILY #30 packet 09/05/23 [Rx] Follow up Appointment(s)/Referral(s): Nishi Michael MD [STAFF PHYSICIAN] - 2 Weeks (September 20, 3:00) Ronit Osborn NPC [Nurse Practitioner] - 09/18/23 10:45 am (This appt is at the office located behind [facility]. [address] Marco Haque MD [Primary Care Provider] - 1-2 days [facility] Visiting Nurse, [NON-STAFF] - Patient Instructions/Handouts: Thrombocytopenia (DC) Activity/Diet/Wound Care/Special Instructions: Activity Limited until follow-up Follow-up with primary care provider on discharge Follow-up with oncology outpatient Follow-up with cardiology outpatient in one week Continue taking medications as prescribed Follow-up with wound care in 1-2 weeks Continue by applying Santyl, saline moistened gauze and border foam to the sacrum. Right great toe wound care: Apply Stansel, nonadherent gauze, dry gauze and then rolled gauze with surrounding kerlex and secure with tape. Change daily or if becoming soiled Continue antibiotics until finished Discharge Disposition: HOME WITH HOME HEALTH SERVICES
== END 2023-09-06 11:51 | disposition home health service (06) | DRG 808 ==
LOC: EC 13:53 → 3SCARD 17:15
PROVIDERS: ADMIT Hospitalist; ATTEND Hospitalist
PROC: 30233N1 Transfusion of Nonautologous Red Blood Cells into Peripheral Vein, Percutaneous Approach (ICD-10-PCS; principal; 2023-08-25)
DX: D61.810 Antineoplastic chemotherapy induced pancytopenia (principal); E43 Unspecified severe protein-calorie malnutrition; L89.153 Pressure ulcer of sacral region, stage 3; C25.9 Malignant neoplasm of pancreas, unspecified; E87.20 Acidosis, unspecified; N17.9 Acute kidney failure, unspecified; I48.19 Other persistent atrial fibrillation; J98.11 Atelectasis; R53.81 Other malaise; W01.0XXA Fall on same level from slipping, tripping and stumbling without subsequent striking against object, initial encounter; Y92.019 Unspecified place in single-family (private) house as the place of occurrence of the external cause; T45.1X5A Adverse effect of antineoplastic and immunosuppressive drugs, initial encounter; D72.829 Elevated white blood cell count, unspecified; E11.22 Type 2 diabetes mellitus with diabetic chronic kidney disease; I25.10 Atherosclerotic heart disease of native coronary artery without angina pectoris; Z68.21 Body mass index [BMI] 21.0-21.9, adult; E86.0 Dehydration; N18.30 Chronic kidney disease, stage 3 unspecified; E11.621 Type 2 diabetes mellitus with foot ulcer; L97.512 Non-pressure chronic ulcer of other part of right foot with fat layer exposed; Z79.4 Long term (current) use of insulin; I12.9 Hypertensive chronic kidney disease with stage 1 through stage 4 chronic kidney disease, or unspecified chronic kidney disease; I70.0 Atherosclerosis of aorta; R07.89 Other chest pain; I25.5 Ischemic cardiomyopathy; M48.02 Spinal stenosis, cervical region; K86.81 Exocrine pancreatic insufficiency; M54.9 Dorsalgia, unspecified; E78.5 Hyperlipidemia, unspecified; M19.90 Unspecified osteoarthritis, unspecified site; I34.0 Nonrheumatic mitral (valve) insufficiency; Z87.891 Personal history of nicotine dependence; Z95.5 Presence of coronary angioplasty implant and graft; Z71.3 Dietary counseling and surveillance; Z79.01 Long term (current) use of anticoagulants; Z79.899 Other long term (current) drug therapy; Z86.74 Personal history of sudden cardiac arrest; Z86.73 Personal history of transient ischemic attack (TIA), and cerebral infarction without residual deficits
CPT/HCPCS: 36415; 70450; 71045; 71275; 72125; 72170; 80048; 80053; 81001; 81003; 82550; 83036; 83605; 83735; 84100; 84145; 84443; 84484; 85025; 85379; 85610; 85652; 85730; 86140; 86850; 86900; 86901; 86920; 87040; 94760; 96361; 96374; 99285

== ENCOUNTER 2024-02-24 14:37 | Emergency (ER) | payer MEDICARE, OTHER ==
[2024-02-24 15:07] VITALS: PULSE 0; RESP 0
--- NOTE | 2024-02-24 16:08 | ED ---
CPR HPI - General Chief Complaint: Cardiac Arrest/CPR Stated Complaint: Cardiac Arrest Time Seen by Provider: 02/24/24 14:37 Source: EMS, RN notes reviewed, old records reviewed Mode of arrival: EMS - History of Present Illness Initial Comments: 69-year-old male with a history of pancreatic cancer also history of coronary artery disease type 2 diabetes hypertension chronic renal disease stage III who apparently for the past day or so has not been responding verbally and demonstrating decreased level of consciousness. EMS was called today for evaluation while getting the patient ready for transport to the hospital for evaluation he was noted to become unresponsive and when he went into initially what appeared to be an asystolic cardiac arrest. ACLS protocol was started and the patient was intubated with a #7 endotracheal tube. Patient received a total of 6 rounds of epinephrine and 5 rounds of defibrillation. Patient initially went from a rhythm that was stated to be asystole to V. tach to V-fib. The patient was placed on a Ben device and was transported to this facility. The crew apparently did get pulses back but again he became asystolic before reachi ng the emergency department. Patient was asystolic upon arrival here. The patient was noted to have a brief episode of pulses but was unresponsive otherwise. He went back into asystole and did not regain pulses. - Related Data Home Medications Medication Instructions Recorded Confirmed Apixaban [Eliquis] 5 mg PO BID 03/20/18 08/25/23 Cyanocobalamin (Vitamin B-12) 1,000 mcg PO DAILY 03/20/18 08/25/23 [Vitamin B-12] Cyclobenzaprine [Flexeril] 10 mg PO HS PRN 03/20/18 08/25/23 Nitroglycerin Sl Tabs [Nitrostat] 0.4 mg SUBLINGUAL Q5M PRN 03/20/18 08/25/23 Pravastatin Sodium [Pravachol] 20 mg PO HS 12/13/19 08/25/23 Cholecalciferol [Vitamin D3 (25 50 mcg PO DAILY 10/13/22 08/25/23 Mcg = 1000 Iu)] Diphenoxylate HCl/Atropine 2 tab PO QID PRN 07/10/23 08/25/23 [Lomotil 2.5-0.025 mg Tablet] Insulin Degludec [Tresiba 10 units SQ DAILY 07/10/23 08/25/23 Flextouch U-100 Pen] allopurinoL [Zyloprim] 100 mg PO DAILY 07/10/23 08/25/23 Previous Rx's Medication Instructions Recorded Acetaminophen Tab [Tylenol] 650 mg PO Q6HR PRN tab 07/14/23 Tamsulosin [Flomax] 0.4 mg PO PC-BRKFST #30 cap 07/14/23 Amoxic-Pot Clav 875-125Mg 1 tab PO Q12HR 10 Days #20 tab 09/05/23 [Augmentin 875-125] Collagenase [Santyl Ointment] 1 applic TOPICAL DAILY 30 Days #1 09/05/23 each Famotidine [Pepcid] 20 mg PO DAILY #30 tab 09/05/23 HYDROcodone/APAP 10-325MG [Sunman 1 each PO Q6HR PRN #9 tab 09/05/23 10-325] Metoprolol Tartrate [Lopressor] 50 mg PO TID 30 Days #90 tab 09/05/23 Midodrine [ProAmatine] 10 mg PO AC-TID 30 Days #180 tab 09/05/23 polyethylene glycoL 3350 [Miralax] 17 gm PO DAILY #30 packet 09/05/23 Allergies Allergy/AdvReac Type Severity Reaction Status Date / Time morphine Allergy Swelling Verified 08/25/23 16:42 Review of Systems ROS Statement: Those systems with pertinent positive or pertinent negative responses have been documented in the HPI. Limitations: ROS unobtainable due to patients medical condition Past Medical History Past Medical History: Atrial Fibrillation, Cancer, Chest Pain / Angina, Diabetes Mellitus, Hyperlipidemia, Hypertension, Musculoskeletal Disorder, Osteoarthritis (OA) Additional Past Medical History / Comment(s): BACK PAIN R/T OLD INJURY. kidney stones, Recent diagnosis of Pancreatic tumor. History of Any Multi-Drug Resistant Organisms: None Reported Past Surgical History: Back Surgery, Heart Catheterization, Heart Catheterization With Stent, Orthopedic Surgery Additional Past Surgical History / Comment(s): R Knee scope; Colonoscopy; Deviated Septum Repair. BACK SURG.X2 PTCA W/ STENTS X2. CARDIOVERSION 03/28/18. ERCP last week with Dr. Morfin out of [facility] with stent placement. Past Anesthesia/Blood Transfusion Reactions: No Reported Reaction Date of Last Stent Placement:: 1997 Past Psychological History: No Psychological Hx Reported Smoking Status: Former smoker - Past Family History Mother Family Medical History: Dementia, Memory Impairment Additional Family Medical History / Comment(s): Mother in her 80s r/t advanced dementia. Father Family Medical History: Myocardial Infarction ([place]) Additional Family Medical History / Comment(s): Father from coronary artery disease. Sister(s) Additional Family Medical History / Comment(s): Patient has 3 sisters one past from CVA. One has coronary artery disease with stent in 1 has no major medical problems. Patient is not having any children. Patient does not have any brothers. General Exam - General Exam Comments Initial Comments: This was a well-developed frail-appearing male who was unresponsive with CPR in progress. Pupils were fixed and approximately 4 mm and unresponsive to any reaction. General appearance: other (Unresponsive) Head exam: Present: atraumatic Eye exam: Present: other (As above) ENT exam: Present: other (7. Orotracheal tube was in place) Neck exam: Present: normal inspection, other (No JVD no pulses) Respiratory exam: Present: normal lung sounds bilaterally (Bilateral lung sounds with orotracheal tube via bagging.) Cardiovascular Exam: Present: other (Pulseless) GI/Abdominal exam: Present: soft. Absent: bruit, pulsatile mass Rectal exam: Present: deferred exam: Present: normal inspection Extremities exam: Present: other (Normal inspection other than an interosseous IV in the left proximal humerus) Back exam: Present: normal inspection Neurological exam: Present: other (Unresponsive) Psychiatric exam: Present: other (Unresponsive) Skin exam: Present: pallor Course Vital Signs 02/24/24 14:48 Pulse Rate 0 L Respiratory 0 L Rate O2 Sat by Pulse 0 L Oximetry - Reevaluation(s) Reevaluation #1: 02/24/24 16:17 The director medical economics's office was contacted twice the patient's family did respond by phone with nursing staff. We did try to contact Dr. Marco Haque without success. Medical Decision Making - Medical Decision Making ACLS protocol was continued but to no avail the patient was pronounced at 1430 8 PM. I did discuss the case with Luz from the director medical economics's office. Family did call him but did not come to the emergency department. Halle Serrato was a family member. Code [phone] is her phone number they have requested gel which home. Was pt. sent in by a medical professional or institution (, [facility], [facility]ING [facility], urgent care, hospital, or senior living...) When possible be specific @ -No Did you speak to anyone other than the patient for history (EMS, parent, family, police, friend...)? What history was obtained from this source @ -Paramedics upon arrival Did you review nursing and triage notes (agree or disagree)? Why? @ -I reviewed and agree with nursing and triage notes Were old charts reviewed (outside hosp., previous admission, EMS record, old EKG, old radiological studies, urgent care reports/EKG's, senior living records)? Report findings @ -Old charts were reviewed Differential Diagnosis (chest pain, altered mental status, abdominal pain women, abdominal pain men, vaginal bleeding, weakness, fever, dyspnea, syncope, headache, dizziness, GI bleed, back pain, seizure, CVA, palpatations, mental health, musculoskeletal)? @ -Cardiac arrest, altered mental status EKG interpreted by me (3pts min.). @ -Not performed the quality assurance monitor final was visualized in the resuscitation bay X-rays interpreted by me (1pt min.). @ -None done CT interpreted by me (1pt min.). @ -None done U/S interpreted by me (1pt. min.). @ -None done What testing was considered but not performed or refused? (CT, X-rays, U/S, labs)? Why? @ -None What meds were considered but not given or refused? Why? @ -None Did you discuss the management of the patient with other professionals (professionals i.e. , [facility], [facility]ING [facility], lab, RT, psych nurse, outreach and education social worker, hammer setter, teacher, psychological operations officer, case briefer)? Give summary @ -KARLA, Luz Was smoking cessation discussed for >3mins.? @ -No Was critical care preformed (if so, how long)? @ -31 minutes Were there social determinants of health that impacted care today? How? (Homelessness, low income, unemployed, alcoholism, drug addiction, transportation, low edu. Level, literacy, decrease access to med. care, care home, rehab)? @ -No Was there de-escalation of care discussed even if they declined (Discuss DNR or withdrawal of care, Hospice)? DNR status @ -No What co-morbidities impacted this encounter? (DM, HTN, Smoking, COPD, CAD, Cancer, CVA, ARF, Chemo, Hep., AIDS, mental health diagnosis, sleep apnea, morbid obesity)? @ -CAD, pancreatic cancer, chronic kidney disease, diabetes, hypertension, heart disease Was patient admitted / discharged? Hospital course, mention meds given and route, prescriptions, significant lab abnormalities, going to OR and other pertinent info. @ -Hospital course patient in the emergency department and will be released to the home. Undiagnosed new problem with uncertain prognosis? @ -No Drug Therapy requiring intensive monitoring for toxicity (Heparin, Nitro, Insulin, Cardizem)? @ -No Were any procedures done? @ -No Diagnosis/symptom? @ -Sudden cardiac , cardiac arrest Acute, or Chronic, or Acute on Chronic? @ -Acute Uncomplicated (without systemic symptoms) or Complicated (systemic symptoms)? @ -Placated Side effects of treatment? @ -No Exacerbation, Progression, or Severe Exacerbation? @ -No Poses a threat to life or bodily function? How? (Chest pain, [place], [place], pneumonia, PE, COPD, DKA, ARF, appy, cholecystitis, CVA, Diverticulitis, Homicidal, Suicidal, threat to staff... and all critical care pts) @ -Ended in Critical Care Time Critical Care Time: Yes Total Critical Care Time: 31 Disposition Clinical Impression: Cardiac arrest, Sudden cardiac , History of pancreatic cancer Disposition: Referrals: Marco Haque MD [Primary Care Provider] - 1-2 days Decision Date: 02/24/24 Decision Time: 14:38 Preliminary Cause of : Sudden cardiac
== END 2024-02-24 16:30 | disposition expired ==
LOC: SUPCPDRO 14:37 → EC 14:37
DX: I46.9 Cardiac arrest, cause unspecified (principal); E11.22 Type 2 diabetes mellitus with diabetic chronic kidney disease; I13.0 Hypertensive heart and chronic kidney disease with heart failure and stage 1 through stage 4 chronic kidney disease, or unspecified chronic kidney disease; I50.9 Heart failure, unspecified; N18.30 Chronic kidney disease, stage 3 unspecified; I25.10 Atherosclerotic heart disease of native coronary artery without angina pectoris; Z79.01 Long term (current) use of anticoagulants; Z79.4 Long term (current) use of insulin; Z79.899 Other long term (current) drug therapy; Z88.5 Allergy status to narcotic agent; Z85.07 Personal history of malignant neoplasm of pancreas; Z87.891 Personal history of nicotine dependence; Z95.5 Presence of coronary angioplasty implant and graft
CPT/HCPCS: 92950; 99291